=== PATIENT | female | born 1950 | race Caucasian/White ===

== ENCOUNTER 2020-01-14 12:59 | Outpatient (REF) | payer SELFPAY | END 2020-01-14 13:00 | disposition home or self-care (01) | LOC: HO.HAP 12:59 | PROVIDERS: Visit Provider Internal Medicine | DX: Z46.1 Encounter for fitting and adjustment of hearing aid (principal); H90.3 Sensorineural hearing loss, bilateral | CPT/HCPCS: V5264 ==

== ENCOUNTER 2020-01-24 11:32 | Outpatient (REF) | payer SELFPAY | END 2020-01-24 11:33 | disposition home or self-care (01) | LOC: HO.HAP 11:32 | PROVIDERS: Visit Provider Internal Medicine | DX: Z13.89 Encounter for screening for other disorder (principal) | CPT/HCPCS: 92700 ==

== ENCOUNTER 2020-02-14 12:43 | Outpatient (REF) | payer SELFPAY | END 2020-02-14 12:44 | disposition home or self-care (01) | LOC: HO.HAP 12:43 | PROVIDERS: PCP Internal Medicine; Referring Provider Internal Medicine; Visit Provider Internal Medicine | DX: Z13.89 Encounter for screening for other disorder (principal) | CPT/HCPCS: 92700 ==

== ENCOUNTER 2020-02-25 12:24 | Outpatient (REF) | payer SELFPAY | END 2020-02-25 12:25 | disposition home or self-care (01) | LOC: HO.HAP 12:24 | PROVIDERS: PCP Internal Medicine; Referring Provider Internal Medicine; Visit Provider Internal Medicine | DX: Z13.89 Encounter for screening for other disorder (principal) | CPT/HCPCS: 92700 ==

== ENCOUNTER 2020-03-04 13:26 | Outpatient (REF) | payer SELFPAY | END 2020-03-04 13:27 | disposition home or self-care (01) | LOC: HO.HAP 13:26 | PROVIDERS: PCP Internal Medicine; Referring Provider Internal Medicine; Visit Provider Internal Medicine | DX: Z13.89 Encounter for screening for other disorder (principal) | CPT/HCPCS: 92700 ==

== ENCOUNTER 2020-04-14 13:02 | Outpatient (REF) | payer SELFPAY | END 2020-04-14 13:03 | disposition home or self-care (01) | LOC: HO.HAP 13:02 | PROVIDERS: Visit Provider Internal Medicine | DX: Z13.89 Encounter for screening for other disorder (principal) ==

== ENCOUNTER 2020-04-24 12:11 | Outpatient (REF) | payer SELFPAY | END 2020-04-24 12:12 | disposition home or self-care (01) | LOC: HO.HAP 12:11 | PROVIDERS: Visit Provider Internal Medicine | DX: Z13.89 Encounter for screening for other disorder (principal) ==

== ENCOUNTER 2020-05-22 12:31 | Outpatient (REF) | payer SELFPAY | END 2020-05-22 12:32 | disposition home or self-care (01) | LOC: HO.HAP 12:31 | PROVIDERS: Visit Provider Internal Medicine | DX: Z13.89 Encounter for screening for other disorder (principal) ==

== ENCOUNTER 2020-07-26 14:04 | Emergency (ER) | payer MEDICARE, OTHER, SELFPAY ==
[2020-07-26 14:11] VITALS: BP 141/66; PULSE 70; RESP 16; TEMP 37.1; O2SAT 96; BMI 33.0
--- NOTE | 2020-07-26 15:45 | ED_ITS ---
HPI - General Adult General Chief complaint: General Medical Stated complaint: cellulitis Time Seen by Provider: 07/26/20 15:34 Source: patient and family Mode of arrival: ambulatory Limitations: no limitations History of Present Illness HPI narrative: 70-year-old female with a past medical history of insulin-depend ent diabetes,, chronic lymphedema, breast cancer status post mastectomy and chemotherapy, depression, degenerative joint disease, fibromyalgia, ,OCD neuropathy here with complaints of right lower extremity swelling with a wound to the site. Patient tells me that she does have chronic lower extremity swelling secondary lymphedema. About 6 weeks ago she scratched her right lower leg and then noticed some redness and a wound at that site. She has been on Keflex from her primary care doctor since. This morning she noticed some increasing redness with a blister to the back of the right leg and more swelling. No pain. No fevers or chills. Blood sugars have been running from 130-150 in the morning at home. Related Data Previous Rx's Medication Instructions Recorded fluconazole [Diflucan] 150 mg PO Q3D #2 tab 07/26/20 sulfamethoxazole-trimethoprim 1 tab PO BID #14 tab 07/26/20 [Bactrim DS] Allergies Allergy/AdvReac Type Severity Reaction Status Date / Time codeine [Codeine] Allergy Unknown NAUSEA AND Unverified 12/19/19 15:04 VOMITING, nausea pregabalin Allergy Unknown Confusion Verified 07/26/20 14:20 rosuvastatin [Crestor] Allergy Unknown joint pain Verified 04/26/16 00:00 NSAIDS (Non-Steroidal Allergy Swelling Verified 07/26/20 14:20 Anti-Inflamma oxycodone [From OxyContin] Allergy Itching Verified 07/26/20 14:20 [place] Insulin Allergy Unknown severe Uncoded 04/26/16 00:00 itching tapes, adhesives, tegaderm, Allergy Unknown rash Uncoded 04/26/16 00:00 st wellbutrin Allergy Unknown rash Uncoded 04/26/16 00:00 Review of Systems Review of Systems: Yes all other systems are reviewed and are negative Constitutional: Constitutional: Reports no additional constitutional complaints, Denies body ache(s), Denies chills, Denies fever(s), Denies headac he(s) and Denies weakness Eyes: Eyes: Reports no additional eye complaints and Denies change in vision ENT: Reports system reviewed and no additional complaints, except as documented, Denies dizziness, Denies headache(s), Denies nasal congestion, Denies nasal discharge and Denies neck pain Cardiovascular: Cardiovascular: Reports no additional cardiovascular complaints, Denies chest pain, Reports leg edema and Denies dyspnea Respiratory: Respiratory: Reports no additional respiratory complaints, Denies cough and Denies dyspnea Gastrointestinal: Gastrointestinal: Reports no additional gastrointestinal complaints, Denies abdominal pain, Denies diarrhea, Denies nausea and Denies vomiting Genitourinary: Genitourinary: Reports no additional female genitourinary complaints and Denies urinary incontinence Musculoskeletal: Musculoskeletal: Reports no additional musculoskeletal complaints, Denies back pain, Denies arthralgias, Denies joint swelling, Denies neck pain, Denies numbness and Denies tingling Integumentary/Breasts: Skin/Breast: Reports system reviewed and no additional complaints, except as docu, Reports swelling, Reports erythema, Denies rash and Reports wounds Neurologic: Reports system reviewed and no additional complaints, except as documented, Denies Abnormal speech present, Denies dizziness, Denies headache(s), Denies numbness, Denies tingling and Denies weakness PMFSH Past Medical History Attestation statement: The following information was validated with the patient. Source: old records reviewed and nursing notes reviewed Medical History Depression Diabetes DJD (degenerative joint disease) Fibromyalgia GERD (gastroesophageal reflux disease) Neuropathy OCD (obsessive compulsive disorder) SI (sacroiliac) joint dysfunction Social History Social History Advance Directives: No Advance Directives Information Provided: Yes Physical Exam Vital Signs: Vital Signs: Last Vital Signs Temp 98.7 F 07/26/20 14:11 Pulse 70 07/26/20 14:11 Resp 16 07/26/20 14:11 BP 141/66 H 07/26/20 14:11 Pulse Ox 96 07/26/20 14:11 Body Mass Index 33.0 Const: General: cooperative, healthy appearing, comfortable and no acute distress Orientation/consciousness: patient oriented x3 Limitations: no limitations HENMT: Head: Yes normal to inspection Ears: hearing grossly normal bilaterally General nose exam: Normal external nose present Face and sinus: Yes normal facial exam Mouth: Normal oral and palatal mucosa present Throat: Yes posterior oropharynx normal Eyes: General: appearance normal, both eyes and all related structures Pupils: Equal, round and reactive pupils present Neck: Neck: Yes normal visual inspection Chest: Chest palpation & inspection: normal inspection of the chest Resp: Effort & Inspection: normal respiratory effort Auscultation: clear to auscultation bilaterally Cardio: Rate: regular rate Rhythm: regular rhythm Peripheral pulses: Peripheral pulses 2+ throughout GI: Inspection: Yes normal to inspection Palpation (GI): Soft to palpation and nontender Auscultation: normal bowel sounds Back/Spine/Pelvis: Thoracic/Lumbar Spine: thoracic and lumbar spine normal to inspection Skin: General skin exam: no rashes or lesions noted Neuro: General: patient oriented x3, no focal motor deficits and normal sensation to monofilament Cranial nerves: Yes Equal, round and reactive pupils present Cognition (Neuro): normal cognition Speech: No Abnormal speech present Gait exam (Neuro): Normal gait present Motor exam (neuro): 5/5 motor strength present throughout Extrem: Other: To the right lower extremity there are 2 open wounds over the anterior and medial aspect with some erythema and warmth. There is a blister over the posterior aspect with surrounding erythema and warmth. No fluctuance or induration of the leg. No tenderness on exam. Palpable pulse distally General: Yes normal to inspection and Yes edema (Bilateral 2+) Course Course Course Narrative: 70-year-old female with chronic lymphedema here with right lower extremity wounds with warmth and redness despite taking Keflex. No fevers or chills.. Will check labs 1730-labs show no leukocytosis or shift. Patient has no systemic signs or symptoms concerning for infection. She has chronic lymphedema with chronic wounds and some local cellulitis which can be treated with oral antibiotics. I recommended the patient start doxycycline which she tells me she does not want to take this and would rather take a course of Bactrim. Prescribed 7 days of Bactrim. Patient tells me when she takes antibiotic she gets yeast infection so she is requesting Diflucan for home. Recommend follow-up with her primary care doctor and wound care clinic. Reviewed worrisome signs and symptoms and when to return to the emergency department. Comfortable with discharge home. Medical Decision Making Medical Records Medical records reviewed: Yes I reviewed the patient's medical records. Lab Data Lab results reviewed: Yes I reviewed the patient's lab results. Result diagrams: 07/26/20 16:04 07/26/20 16:03 Labs: Lab Results 07/26/20 07/26/20 07/26/20 Range/Units 16:03 16:04 16:04 WBC 7.8 (4.8-10.8) X10*3/uL RBC 4.10 L (4.20-5.50) X10*6/uL Hgb 13.1 (12.0-16.0) g/dl Hct 39.5 (37-47) % MCV 96.3 (80-98) fL MCH 32.0 (27.0-33.0) pg MCHC 33.2 (31.0-35.0) g/dl RDW 12.4 (11.0-16.0) % Plt Count 313 (160-400) X10*3/uL MPV 8.3 L (9.4-12.3) fL Immature Gran % (Auto) 0.4 (0.0-0.4) % Neut % (Auto) 62.1 (45-73) % Lymph % (Auto) 23.1 (20-40) % [place] % (Auto) 7.9 (2-11) % Eos % (Auto) 5.7 H (0-4) % Baso % (Auto) 0.8 (0-2) % Lymph # (Auto) 1.8 (1.2-4.9) X10*3/uL [place] # (Auto) 0.6 (0.1-1.2) X10*3/uL Eos # (Auto) 0.5 H (0.0-0.4) X10*3/uL Baso # (Auto) 0.1 (0.0-0.2) X10*3/uL Abs Immat Gran (auto) 0.03 (0.00-0.03) X10*3/uL Absolute Neuts (auto) 4.9 (2.0-8.3) X10*3/uL Absolute Nucleated RBC 0.000 (0.0-0.012) X10*3/uL Nucleated RBC % (auto) 0.0 (0.0-0.2) /100WBC ESR 16 (0-20) MM/HR Hold Blue Top Sodium 141 (135-145) mmol/L Potassium 3.8 (3.3-5.1) mmol/L Chloride 103 (96-108) mmol/L Carbon Dioxide 27 (22-29) mmol/L Anion Gap 15 (12-20) BUN 17 H (9-16) mg/dL Creatinine 0.84 (0.5-1.4) mg/dL Estim Creat Clear Calc 58.6 Estimated GFR > 60 Random Glucose 146 H (60-115) mg/dL Calcium 9.7 (8.4-10.2) mg/dL Total Bilirubin 0.5 (0.0-1.0) mg/dL Direct Bilirubin 0.2 (0.0-0.5) mg/dL AST 31 (5-31) U/L ALT 26 (0-31) U/L Alkaline Phosphatase 65 (39-117) U/L C-Reactive Protein 0.93 H (< or = 0.50) mg/dL Total Protein 6.9 (6.5-8.0) g/dL Albumin 4.2 (3.5-5.0) g/dL 07/26/20 Range/Units 16:04 WBC (4.8-10.8) X10*3/uL RBC (4.20-5.50) X10*6/uL Hgb (12.0-16.0) g/dl Hct (37-47) % MCV (80-98) fL MCH (27.0-33.0) pg MCHC (31.0-35.0) g/dl RDW (11.0-16.0) % Plt Count (160-400) X10*3/uL MPV (9.4-12.3) fL Immature Gran % (Auto) (0.0-0.4) % Neut % (Auto) (45-73) % Lymph % (Auto) (20-40) % [place] % (Auto) (2-11) % Eos % (Auto) (0-4) % Baso % (Auto) (0-2) % Lymph # (Auto) (1.2-4.9) X10*3/uL [place] # (Auto) (0.1-1.2) X10*3/uL Eos # (Auto) (0.0-0.4) X10*3/uL Baso # (Auto) (0.0-0.2) X10*3/uL Abs Immat Gran (auto) (0.00-0.03) X10*3/uL Absolute Neuts (auto) (2.0-8.3) X10*3/uL Absolute Nucleated RBC (0.0-0.012) X10*3/uL Nucleated RBC % (auto) (0.0-0.2) /100WBC ESR (0-20) MM/HR Hold Blue Top SEE NOTE Sodium (135-145) mmol/L Potassium (3.3-5.1) mmol/L Chloride (96-108) mmol/L Carbon Dioxide (22-29) mmol/L Anion Gap (12-20) BUN (9-16) mg/dL Creatinine (0.5-1.4) mg/dL Estim Creat Clear Calc Estimated GFR Random Glucose (60-115) mg/dL Calcium (8.4-10.2) mg/dL Total Bilirubin (0.0-1.0) mg/dL Direct Bilirubin (0.0-0.5) mg/dL AST (5-31) U/L ALT (0-31) U/L Alkaline Phosphatase (39-117) U/L C-Reactive Protein (< or = 0.50) mg/dL Total Protein (6.5-8.0) g/dL Albumin (3.5-5.0) g/dL Discharge Plan Discharge Clinical Impression: Cellulitis, Chronic wound of extremity Patient Disposition: Home, Self-Care Instructions: Cellulitis (ED), Chronic Wounds (ED) Additional Instructions: Start taking the antibiotic today Apply topical antibiotic ointment, non stick dressing and wrap to the wound Follow-up with the wound care center [phone] Prescriptions: New sulfamethoxazole-trimethoprim [Bactrim DS] 800-160 mg tablet 1 tab PO BID Qty: 14 RF: 0 fluconazole [Diflucan] 150 mg tablet 150 mg PO Q3D Qty: 2 RF: 0 Referrals: Dany Burnette MD [Primary Care Provider] - 2 days
[2020-07-26 16:09] LABS: MANUAL DIFF FLAG NO
[2020-07-26 16:10] LABS: Basophils Absolute Auto 0.1 X10*3/uL (0.0-0.2); Basophils Percent Auto 0.8 % (0-2); Eosinophils Absolute Auto 0.5 X10*3/uL (0.0-0.4); Eosinophils Percent Auto 5.7 % (0-4); Hematocrit 39.5 % (37-47); Hemoglobin 13.1 g/dl (12.0-16.0); Imm Gran Abs Auto 0.03 X10*3/uL (0.00-0.03); Imm Gran Pct Auto 0.4 % (0.0-0.4); Lymphocytes Absolute Auto 1.8 X10*3/uL (1.2-4.9); Lymphocytes Percent Auto 23.1 % (20-40); Mean Corpuscular HGB Conc 33.2 g/dl (31.0-35.0); Mean Corpuscular Volume 96.3 fL (80-98); Mean Platelet Volume 8.3 fL (9.4-12.3); Monocytes Absolute Auto 0.6 X10*3/uL (0.1-1.2); Monocytes Percent Auto 7.9 % (2-11); Neutrophils Absolute Auto 4.9 X10*3/uL (2.0-8.3); Neutrophils Percent Auto 62.1 % (45-73); Platelet Count 313 X10*3/uL (160-400); Red Cell Distribution Width 12.4 % (11.0-16.0); White Blood Count 7.8 X10*3/uL (4.8-10.8)
[2020-07-26 16:35] LABS: Alanine Aminotransferase 26 U/L (0-31); Albumin Level 4.2 g/dL (3.5-5.0); Alkaline Phosphatase 65 U/L (39-117); Anion Gap 15 (12-20); Aspartate Amino Transferase 31 U/L (5-31); Bilirubin Direct 0.2 mg/dL (0.0-0.5); Bilirubin Total 0.5 mg/dL (0.0-1.0); Blood Urea Nitrogen 17 mg/dL (9-16); C Reactive Protein 0.93 mg/dL (< or = 0.50); Calcium 9.7 mg/dL (8.4-10.2); Carbon Dioxide 27 mmol/L (22-29); Chloride 103 mmol/L (96-108); Creatinine Clr Calc Pharmacy 58.6; Estimated Glomerular Filt Rate > 60; Glucose Random 146 mg/dL (60-115); Potassium 3.8 mmol/L (3.3-5.1); Sodium 141 mmol/L (135-145); Total Protein 6.9 g/dL (6.5-8.0)
[2020-07-26 17:02] LABS: Erythrocyte Sedimentation Rate 16 MM/HR (0-20)
== END 2020-07-26 17:51 | disposition home or self-care (01) ==
PROVIDERS: Nurse Practitioner Family; Emergency Provider Emergency Medicine; PCP Internal Medicine
DX: L03.115 Cellulitis of right lower limb (principal); L97.819 Non-pressure chronic ulcer of other part of right lower leg with unspecified severity; I89.0 Lymphedema, not elsewhere classified; E11.9 Type 2 diabetes mellitus without complications
CPT/HCPCS: 36415; 80048; 80076; 85025; 85652; 86140; 99283

== ENCOUNTER 2020-07-30 09:58 | Outpatient (RCR) | payer MEDICARE, OTHER, SELFPAY | END 2020-08-25 15:08 | disposition home or self-care (01) | LOC: HO.WCC 09:58 | PROVIDERS: Visit Provider Surgery | DX: I87.331 Chronic venous hypertension (idiopathic) with ulcer and inflammation of right lower extremity (principal); L97.812 Non-pressure chronic ulcer of other part of right lower leg with fat layer exposed; Q82.0 Hereditary lymphedema; L03.115 Cellulitis of right lower limb; F42.4 Excoriation (skin-picking) disorder; Z79.4 Long term (current) use of insulin; Z79.899 Other long term (current) drug therapy; Z79.82 Long term (current) use of aspirin; Z79.2 Long term (current) use of antibiotics | CPT/HCPCS: 29581; 99212; 99213 ==

== ENCOUNTER 2020-08-12 11:32 | Outpatient (REF) | payer MEDICARE, OTHER, SELFPAY ==
--- NOTE | 2020-08-14 08:50 | MHC.AU.AHA ---
Adult Audiological Evaluation Date of Visit: 08/12/20 Blast Setter Used: Not Applicable Reason for Appointment: Audiologic re-evaluation due to increasing difficulties understanding speech Previous Hearing Test Results: 03/25/2019 [facility] Bilateral severe to profound sensorineural hearing loss with 76% speech understanding at 95 dB HL for both ears Ear History: Long-standing hearing loss Medical History: Medical History: Diabetes, Thyroid Disease, Arthritis and Fibromyalgia Medication List: Basaglar Insulin, Omeprazol, Levothyroxine, Simvastatin, Ativan, Aspirin, Athritis Tylenol, Zyrtec, Gabapentin, Multivitamin, Fish Oil, [place], Prozac Hearing Instrument History- Right Ear: Wildlife Biology Internship: Phonak Model: Red Hawk Interactive V 90-SP BTE Serial Number: [id number] Battery Size: 13 Repair Warranty: 12/02/2017 Dispensed By: [facility] Date of Fittin09/11/2014 Hearing Instrument History- Left Ear: Wildlife Biology Internship: Phonak Model: Red Hawk Interactive V 90-SP Serial Number: [id number] Battery Size: 13 Warranty: 12/02/2017: Dispensed By: [facility] Date of Fittin09/11/2014 Otoscopy: Right Ear: Unremarkable Left Ear: Unremarkable Tympanometry: Tympanometry not performed as previous testing has indicated normal middle ear function bilaterally Hearing Evaluation: Transducer(s) Used: Insert Earphones Bone Conduction Method: Conventional Audiometry Stimuli Used: Pure Tones Right Ear: Description of Hearing: Severe to profound sensorineural hearing loss Left Ear: Description of Hearing: Severe to profound sensorineural hearing loss Speech Recognition Threshold (SRT): Method Used: Monitored Live Voice Stimuli Used: Spondee Words Right Ear: 75 dB HL Left Ear: 75 dB HL Word Discrimination: Method: Recorded Lists Word Lists Used: NU-6 Right Ear: 44% at 90 dB HL 64% at 95 dB HL Left Ear: 32% at 85 dB HL 60% at 90 dB HL Most Comfortable Level (MCL): Right Ear: 90 dB HL Left Ear: 85 dB HL Comparison: Compared to the most recent evaluation: Hearing is stable. Word discrimination scores have decreased bilaterally. Recommendations: Audiological re-evaluation in one year. Lizzette would like to trial new amplification. Medical clearance from a physician is required before fitting. Hearing Aid Fitting will be scheduled when all materials arrive. Diagnosis: Primary Diagnosis: H90.3 Bilateral Sensorineural Hearing Loss Services Performed: Comprehensive Audiological Evaluation (CPT 60176) Signature: Provider: Luis E Wakefield CCC-A
== END 2020-08-12 11:33 | disposition home or self-care (01) ==
LOC: HO.SH 11:32
PROVIDERS: Visit Provider Internal Medicine
DX: H90.3 Sensorineural hearing loss, bilateral (principal)
CPT/HCPCS: 92557

== ENCOUNTER 2020-08-12 13:27 | Outpatient (REF) | payer SELFPAY ==
--- NOTE | 2020-08-14 08:58 | MHC.AU.HAS ---
Hearing Aid Evaluation Date of Visit: 08/12/20 Historical Information: Description of Hearing: Bilateral severe to profound sensorineural hearing loss Current personal amplification information, if applicable: Binaural Phonak V 90-SP BTE with Microsonic skeleton ear molds Summary: Patient is interested in trying new hearing aids due to the increasing hearing difficulties she is experiencing Hearing Aid Prescription: Based on the individual?s shared listening needs, communication environments, dexterity, desire for connectivity, and personal preferences, the following prescription for amplification has been made: Right ear: Sheet Music Salesperson: Phonak Model: Audeo P 90 13T Battery Size: 13 Color: Silver Sharpe Senior Statistical Programmer: #2 UP Type of Mold: Phonak Skeleton integrated c-shell Left ear: Sheet Music Salesperson: Phonak Model: Audeo P 90 13T Battery Size: 13 Color: Silver Sharpe Senior Statistical Programmer: #2 UP Type of Mold: Phonak Skeleton integrated c-shell Accessories/Assistive Technology Recommended: Promo Partner Ronald Plan of Care: Patient wishes to purchase hearing aids as prescribed Action Taken/Action Needed: Earmold Impressions Taken Medical Clearance to be requested from PCP/ENT Hearing Fitting to be scheduled when materials arrive Comments: Primary Diagnosis: H90.3 Bilateral Sensorineural Hearing Loss Secondary Diagnosis: Signature: Provider: Luis E Wakefield, CCC-A
--- NOTE | 2020-08-14 09:03 | MHC.AU.MED ---
Medical Clearance for Hearing Instrumentation Date: 08/14/20 Patient Name: Lizzette Steiner Date of : 1950 Primary Care Provider: Referring Provider: Dany Burnette MD We have seen your patient on 08/14/20 and have determined that they are a candidate for amplification (See accompanying report). Specifically, they would benefit from: Hearing aid use in both ears There is a statute that addresses Medical Evaluation Requirements prior to fitting a patient with a hearing aid. According to [place] statute 265 CMR:6.03(1), (a) General. Except as provided in 265 CMR 6.03(1)(b), a hearing healthcare practitioner shall not sell a hearing aid unless the prospective user has presented to the hearing healthcare practitioner a written statement signed by a licensed physician that states that the patient's hearing loss has been medically evaluated and the patient may be considered a candidate for a hearing aid. The medical evaluation must have taken place within the preceding six months. Please note: Due to the [place] Statute referenced above, we cannot accept a signature other than that of a licensed physician. RECORD TABULATING CLERK and PA signatures cannot be accepted. I am in agreement with the above recommendation. There is no medical contraindication for hearing instrumentation. Physician Signature Date Physician Name (Printed)
== END 2020-08-12 13:28 | disposition home or self-care (01) ==
LOC: HO.HAP 13:27
PROVIDERS: Visit Provider Internal Medicine
DX: Z46.1 Encounter for fitting and adjustment of hearing aid (principal); H90.3 Sensorineural hearing loss, bilateral
CPT/HCPCS: 92591

== ENCOUNTER 2020-09-02 12:32 | Outpatient (REF) | payer MEDICARE, OTHER, SELFPAY ==
--- NOTE | ~2020-09-02 | US_ITS ---
EXAMINATION: US LOWER EXTREMITY VENOUS ULTRASOUND (REFLUX EXAM), BILATERAL CLINICAL INDICATION: Lower extremity ulcer. Concern for venous insufficiency. COMPARISON: None. TECHNIQUE: Color flow triplex imaging and compression Doppler was performed to evaluate both the deep and the superficial systems bilaterally. To evaluate the superficial system, the examination was performed in the upright position. Color flow Doppler ultrasound and compression ultrasound were utilized. In addition, maneuvers were utilized to demonstrate reflux. FINDINGS: 1. DEEP VENOUS ULTRASOUND OF THE RIGHT LOWER EXTREMITY: Common Femoral Vein: Compressible, normal respiratory variation and augmented flow. Femoral Vein: Compressible, normal color flow and augmentation. Popliteal Vein: Compressible, normal augmentation. Deep Reflux: There is no evidence of reflux in the deep system in either the common femoral vein or the popliteal vein. There is no evidence of a Simpson's cyst. 2. SUPERFICIAL ULTRASOUND WITH DOPPLER OF RIGHT LOWER EXTREMITY GREAT SAPHENOUS VEIN: Saphenofemoral junction: 0.6 cm; No evidence of reflux. Proximal thigh: 0.7 cm; No evidence of reflux. Mid thigh: 0.2 cm; Greater than 3 seconds of reflux. Above-knee: 0.2 cm; No evidence of reflux. At knee: 0.2 cm; Greater than 3 seconds of reflux. Below-knee: 0.3 cm; No evidence of reflux. Mid calf: 0.1 cm; No evidence of reflux. DUPLICATED GREAT SAPHENOUS VEIN: None SMALL SAPHENOUS VEIN: Saphenopopliteal junction: 0.2 cm; No evidence of reflux. Mid calf: 0.2 cm; No evidence of reflux. Distal calf: 0.2 cm; Greater than 2 seconds of reflux. VEIN OF GIACOMINI: None Imaged. PERFORATORS: Proximal thigh, 0.2 cm; No reflux. VARICOSITIES: Distal thigh, 0.2 cm; Greater than 3 seconds of reflux. Distal thigh, 0.2 cm; Greater than 3 seconds of reflux. 3. DEEP VENOUS ULTRASOUND OF THE LEFT LOWER EXTREMITY: Common Femoral Vein: Compressible, normal respiratory variation and augmented flow. Femoral Vein: Compressible, normal color flow and augmentation. Popliteal Vein: Compressible, normal augmentation. Deep Reflux: There is no evidence of reflux in the deep system in either the common femoral vein or the popliteal vein. There is no evidence of a Simpson's cyst. 4. SUPERFICIAL ULTRASOUND WITH DOPPLER OF LEFT LOWER EXTREMITY GREAT SAPHENOUS VEIN: Saphenofemoral junction: 0.7 cm; Reflux: No evidence of reflux. Proximal thigh: 0.4 cm; Reflux: No evidence of reflux. Mid thigh: 0.2 cm; Reflux: 0.6 seconds. Above-knee: 0.1 cm; Reflux: No evidence of reflux. At knee: 0.2 cm; Reflux: No evidence of reflux. Below-knee: 0.2 cm; Reflux: No evidence of reflux. Mid calf: 0.2 cm; Reflux: No evidence of reflux. Ankle: 0.2 cm; Reflux: No evidence of reflux. DUPLICATED GREAT SAPHENOUS VEIN: Lateral, 0.4; No reflux. SMALL SAPHENOUS VEIN: Saphenopopliteal junction: 0.2 cm; No evidence of reflux. Mid calf: 0.2 cm; No evidence of reflux. Distal calf: 0.1 cm; No evidence of reflux. VEIN OF GIACOMINI: None Imaged. PERFORATORS: Mid thigh, 0.2 cm; No reflux. VARICOSITIES: Mid thigh, 0.2 cm; Greater than 0.4 seconds of reflux. Distal calf, 0.2 cm; Greater than 0.5 seconds of reflux. US/US venous duplex LE BI IMPRESSION: 1. Right great saphenous venous insufficiency beginning at the level of the mid thigh 2. Left great saphenous venous insufficiency at the mid thigh. 3. Right small saphenous venous insufficiency at the distal calf. 4. No evidence of left small saphenous venous insufficiency. 5. Bilateral refluxing varicosities. 6. No evidence of DVT or deep reflux.
== END 2020-09-02 12:33 | disposition home or self-care (01) ==
LOC: HO.US 12:32
PROVIDERS: Visit Provider Surgery
DX: L97.812 Non-pressure chronic ulcer of other part of right lower leg with fat layer exposed (principal)
CPT/HCPCS: 93970

== ENCOUNTER 2020-09-04 09:55 | Outpatient (REF) | payer SELFPAY ==
--- NOTE | 2020-09-10 08:10 | MHC.AU.HFA ---
Hearing Instrument Fitting- Adult- Binaural Date of Visit: 09/04/20 Hearing Instruments Dispensed: Right Ear: Poultry Dressing Worker: Phonak Model: Audeo P 90 13T Serial Number: [id number] Repair Warranty: 11/19/2023 Battery Size: 13 Color: Silver Sharpe Box Office Clerk: #2 UP Type of Mold: Phonak Skeleton integrated c-shell [id number] Warranty 12/20/2020 Type of Wax Guard: CeruStop Left Ear: Poultry Dressing Worker: Phonak Model: Audeo P 90 13T Serial Number: [id number] Repair Warranty: 11/19/2023 Battery Size: 13 Color: Silver Sharpe Box Office Clerk: #2 UP Type of Mold: Phonak Skeleton integrated c-shell #[id number] Warranty 12/20/2020 Type of Wax Guard: CeruStop Accessories[facility]Assistive Technology: [id number] 11/18/2021 Summary of Fitting: New binaural hearing aids fit today to facilitate communication as Lizzette was experiencing increased difficulties understand speech with previous aids. Ran feedback test and performed Real Ear measurements making adjustments to better meet targets. AFTER REAL EAR PATIENT DID NOT LIKE THE SOUND QUALITY COMPARED TO TARGET FIRST FIT AFTER FEEDBACK TEST. DID NOT SAVE SETTINGS FOLLOWING REAL EAR AND RETURNED TO FIRST FIT WITH FEEDBACK TEST WITH PATIENT REPORTING MUCH BETTER SOUND QUALITY AND COMFORT. Sound Recover deactivated and volume control active. All other features on default. Patient did not want cell phone paired with aids. Patient had some difficulty with insertion since molds are different from old hearing aids used. She does better when inserting the earmolds first then placing aids behind ears. Discussed how important it is to not twist the distribution operation supervisor wire. Patient is very satisfied with the comfort and sound of the aids while in office. F/U scheduled 09/18/2020. Patient's funds did not get transferred from the bank yet. Did not bill hearing aids today. Recommendations: Recommendations: Hearing instrument care and maintenance were discussed and practiced. See handouts for care/use instructions and battery information. A hearing instrument follow-up was scheduled. Recommendations (Other): BILL FOR HEARING AIDS AT 09/18/2020 VISIT. Diagnosis Code(s): Primary Diagnosis: H90.3 Bilateral Sensorineural Hearing Loss Signature: Provider: Luis E Wakefield, GUNJAN-A
== END 2020-09-04 09:56 | disposition home or self-care (01) ==
LOC: HO.HAP 09:55
PROVIDERS: Visit Provider Internal Medicine
DX: Z13.89 Encounter for screening for other disorder (principal)

== ENCOUNTER 2020-09-18 11:41 | Outpatient (REF) | payer SELFPAY | END 2020-09-18 11:42 | disposition home or self-care (01) | LOC: HO.HAP 11:41 | PROVIDERS: Visit Provider Internal Medicine | DX: H90.3 Sensorineural hearing loss, bilateral (principal); Z46.1 Encounter for fitting and adjustment of hearing aid | CPT/HCPCS: V5261 ==

== ENCOUNTER → 2021-01-01 10:47 | Outpatient (BNVA) | payer MEDICARE, OTHER, SELFPAY | PROVIDERS: PCP Internal Medicine; Visit Provider Internal Medicine | DX: M79.18 Myalgia, other site (principal); M46.92 Unspecified inflammatory spondylopathy, cervical region; M54.12 Radiculopathy, cervical region; M25.512 Pain in left shoulder | CPT/HCPCS: 99202 ==

== ENCOUNTER 2021-01-07 19:01 | Outpatient (REF) | payer MEDICARE, OTHER, SELFPAY ==
--- NOTE | ~2021-01-07 | MR_ITS ---
EXAMINATION: MR CERVICAL SPINE WITHOUT CONTRAST CLINICAL INFORMATION: Left shoulder pain. Left arm pain, tingling, finger numbness. COMPARISON: None TECHNIQUE: MRI of the cervical spine was obtained using routine sequences without contrast. FINDINGS: VERTEBRAL BODIES AND PARASPINAL SOFT TISSUES: Straightening of the normal cervical lordosis, which may be positional or related to muscular spasm. Grade 1 anterolisthesis of C4 on C5. Grade 1 retrolisthesis of C5 on C6 as well as grade 1 anterolisthesis of C7 on T1. No acute fracture. No loss of vertebral body height. Prominent loss of intervertebral disc height with disc desiccation, degenerative endplate changes, and endplate osteophytes at C4 through T1. No marrow edema to suggest acute osseous injury. No abnormal signal within the visualized cord. Paraspinal soft tissues are unremarkable. CERVICOMEDULLARY JUNCTION AND VISUALIZED POSTERIOR FOSSA: Unremarkable. SPINAL LEVELS: C2-C3: No significant disc bulge. Bilateral facet arthropathy without central canal or neural foraminal stenosis. C3-C4: Broad-based disc bulge with a superimposed right paracentral disc protrusion which partially effaces the ventral thecal sac. Bilateral facet arthropathy and uncinate spurring with moderate right and mild left neural foraminal stenosis. C4-C5: Broad-based disc osteophyte complex which completely effaces the ventral thecal sac and indents the adjacent cord. Bilateral facet arthropathy and uncinate spurring with ujafhezu-ku-ibefod bilateral neural foraminal stenosis. C5-C6: Broad-based disc osteophyte complex which completely effaces the ventral thecal sac and indents the adjacent cord. Bilateral facet arthropathy and uncinate spurring with ictibafr-hz-wcrdzh bilateral neural foraminal stenosis. C6-C7: Broad-based disc osteophyte complex which completely effaces the ventral thecal sac. Bilateral facet arthropathy and uncinate spurring with xlwmpirt-ui-ipbdkd bilateral neural foraminal stenosis. C7-T1: Shallow disc bulge which partially effaces the ventral thecal sac with bilateral facet arthropathy and uncinate spurring causing mild bilateral neural foraminal stenosis. MR/MR cervical spine wo con IMPRESSION: 1. Straightening of the normal cervical lordosis, which may be positional or related to muscular spasm. Grade 1 anterolisthesis of C4 on C5 and C7 on T1 as well as grade 1 retrolisthesis of C5 on C6. No acute fracture. 2. Multilevel degenerative disc disease, most prominent at C4 through C7. 3. Broad-based disc osteophyte complexes which completely efface the ventral thecal sac and indent the adjacent cord at C4-C5 and C5-C6 with facet arthropathy and uncinate spurring causing havlfufs-ai-rprngi bilateral neural foraminal stenosis at these levels. 4. Additional disc bulges and stenosis as above.
== END 2021-01-07 19:02 | disposition home or self-care (01) ==
LOC: HO.MRI 19:01
PROVIDERS: PCP Internal Medicine; Visit Provider Internal Medicine
DX: M54.12 Radiculopathy, cervical region (principal); M46.92 Unspecified inflammatory spondylopathy, cervical region
CPT/HCPCS: 72141

== ENCOUNTER → 2021-01-15 10:27 | Outpatient (BNVA) | payer MEDICARE, OTHER, SELFPAY | PROVIDERS: PCP Internal Medicine; Visit Provider Internal Medicine | DX: M46.92 Unspecified inflammatory spondylopathy, cervical region (principal); M54.12 Radiculopathy, cervical region; M79.18 Myalgia, other site | CPT/HCPCS: Q3014 ==

== ENCOUNTER 2021-02-03 15:05 | Outpatient (RCR) | payer MEDICARE, OTHER, SELFPAY | END 2021-02-08 16:02 | disposition home or self-care (01) | LOC: HO.WCC 15:05 | PROVIDERS: PCP Internal Medicine; Visit Provider Surgery | DX: Z09 Encounter for follow-up examination after completed treatment for conditions other than malignant neoplasm (principal); I87.323 Chronic venous hypertension (idiopathic) with inflammation of bilateral lower extremity; E11.40 Type 2 diabetes mellitus with diabetic neuropathy, unspecified; Z87.2 Personal history of diseases of the skin and subcutaneous tissue | CPT/HCPCS: 99212 ==

== ENCOUNTER 2021-03-19 | Outpatient (REF) | payer MEDICARE, OTHER, SELFPAY | END 2021-03-19 00:01 | LOC: CF | PROVIDERS: Visit Provider Internal Medicine | DX: R32 Unspecified urinary incontinence (principal); M46.92 Unspecified inflammatory spondylopathy, cervical region | CPT/HCPCS: 99212 ==

== ENCOUNTER 2021-03-19 10:58 | Outpatient (REF) | payer MEDICARE, OTHER, SELFPAY | END 2021-03-19 10:59 | disposition home or self-care (01) | LOC: HO.HAP 10:58 | PROVIDERS: Visit Provider Internal Medicine | DX: Z46.1 Encounter for fitting and adjustment of hearing aid (principal); H90.3 Sensorineural hearing loss, bilateral; M46.92 Unspecified inflammatory spondylopathy, cervical region; M54.12 Radiculopathy, cervical region; M79.18 Myalgia, other site; M25.512 Pain in left shoulder; R32 Unspecified urinary incontinence | CPT/HCPCS: 99212; V5267 ==

== ENCOUNTER 2021-04-28 10:58 | Outpatient (REF) | payer MEDICARE, OTHER, SELFPAY ==
--- NOTE | 2021-04-28 14:39 | MHC.AU.HFU ---
Hearing Instrument Follow-Up- Binaural Date of Visit: 04/28/21 Right Ear: Carbon Blocks Press Operator: Phonak Model: Audeo P 90 13T Serial Number: [id number] Repair Warranty: 11/19/2023 Battery Size: 13 Color: Silver Sharpe Tactical Air Control Party: #2 UP Type of Dome: Type of Mold: Phonak Skeleton integrated c-shell [id number] Warranty 12/20/2020 Type of Wax Guard: CeruStop Dispensed By: [facility] Date of Fittin09/11/2014 Left Ear: Carbon Blocks Press Operator: Phonak Model: Audeo P 90 13T Serial Number: [id number] Repair Warranty: 11/19/2023 Battery Size: 13 Color: Silver Sharpe Tactical Air Control Party: #2 UP Type of Mold: Phonak Skeleton integrated c-shell #[id number] Warranty 12/20/2020 Type of Wax Guard: CeruStop Dispensed By: [facility] Date of Fittin09/11/2014 Follow-Up Summary: Audiologic re-evaluation performed as recommended by PCP because patient reports every time she inserts the aids over the past several weeks, she has to increase the volume of aids 3 steps. Wax guards partially blocked with cerumen. Otoscopy showed very small amount of cerumen around canal day, but nothing which needs to be removed. Explained she must be scooping enough to affect the quality of sound. Changed wax guards, cleaned microphones and contacts. Sound quality of aids have improved and patient notices this improvement. No programming changes made today. Recommendations: Hearing instrument follow-up or maintenance as needed. Patient will call if problems persist. Diagnosis Code(s): Primary Diagnosis: H90.3 Bilateral Sensorineural Hearing Loss Signature: Provider: Luis E Wakefield, [facility]
--- NOTE | 2021-04-30 13:08 | MHC.AU.AHA ---
Adult Audiological Evaluation Date of Visit: 04/28/21 Artificial Flowers Dyer Used: Not Applicable Reason for Appointment: Audiologic re-evaluation due to concerns regarding signficant change in hearing ability. Lizzette reports she needs to increase the volume of her hearing aids by 3 steps every time she puts the hearing aids on. Primary Care Physician referred for re-evaluation to determine if change in hearing ability as Lizzette has had a change in her medical status. Previous Hearing Test Results: 08/12/2020 [facility] Bilateral severe to profound sensorineural hearing loss with 64% speech discrimination ability for the right ear and 60% for the left ear. Medical History: Medical History: Diabetes, Thyroid Disease, Arthritis, and Fibromyalgia Allergies: Medication List: Basaglar Insulin, Gabapentin, Levothyroxine, Simvastatin, Aspirin, Fish Oil, Xyzal, Haldol, Omeprazole, Magnesium, Ativan, Arthritis Tylenol, Voltaren, B Vitamins, Biotin, DioVasc Hearing Instrument History- Right Ear: Navy Seal: Phonak Model: Arrive Technologieseo P 90 13T Serial Number: [id number] Battery Size: 13 Repair Warranty: 11/19/2023 Dispensed By: [facility] Date of Fittin09/11/2014 Hearing Instrument History- Left Ear: Navy Seal: Phonak Model: Arrive Technologieseo P 90 13T Serial Number: [id number] Battery Size: 13 Warranty: 11/19/2023 Dispensed By: [facility] Date of Fittin09/11/2014 Otoscopy: Right Ear: Unremarkable Left Ear: Unremarkable Tympanometry: Not performed at today's visit Hearing Evaluation: Transducer(s) Used: Insert Earphones Method: Conventional Audiometry Stimuli Used: Pure Tones Right Ear: Description of Hearing: Severe to profound sensorineural hearing loss. Left Ear: Description of Hearing: Severe to profound sensorineural hearing loss. Speech Recognition Threshold (SRT): Method Used: Not performed at today's visit. Word Discrimination: Method: Recorded Lists Word Lists Used: NU-6 Right Ear: 60% at 90 dB HL Left Ear: 64% at 95 dB HL Comparison: Compared to the most recent evaluation: Hearing is stable. Recommendations: Hearing aid maintenance performed today. Sound quality of aids improved following maintenance. Audiological re-evaluation in one year. Will send a reminder card. Diagnosis: Primary Diagnosis: H90.3 Bilateral Sensorineural Hearing Loss Services Performed: Comprehensive Audiological Evaluation (CPT 44257) Signature: Provider: Luis E Wakefield, [facility]
== END 2021-04-28 10:59 | disposition home or self-care (01) ==
LOC: HO.SH 10:58
PROVIDERS: Visit Provider Nurse Practitioner Acute Care
DX: H90.3 Sensorineural hearing loss, bilateral (principal)
CPT/HCPCS: 92557

== ENCOUNTER → 2021-05-17 12:51 | Outpatient (BNVA) | payer MEDICARE, OTHER, SELFPAY | PROVIDERS: PCP Internal Medicine; Visit Provider Internal Medicine | DX: M25.512 Pain in left shoulder (principal); M79.18 Myalgia, other site; M46.92 Unspecified inflammatory spondylopathy, cervical region; M54.12 Radiculopathy, cervical region | CPT/HCPCS: 99212 ==

== ENCOUNTER → 2021-05-27 12:58 | Outpatient (BNVA) | payer MEDICARE, OTHER, SELFPAY | PROVIDERS: PCP Internal Medicine | DX: R39.15 Urgency of urination (principal) | CPT/HCPCS: 51798; 99202 ==

== ENCOUNTER → 2021-06-14 11:49 | Outpatient (BNVA) | payer MEDICARE, OTHER, SELFPAY | PROVIDERS: PCP Nurse Practitioner Family; Visit Provider Internal Medicine | DX: Z13.89 Encounter for screening for other disorder (principal) | CPT/HCPCS: Q3014 ==

== ENCOUNTER 2021-06-15 10:41 | Outpatient (REF) | payer MEDICARE, OTHER, SELFPAY ==
[2021-06-15 11:15] LABS: MANUAL DIFF FLAG NO
[2021-06-15 11:32] LABS: Estimated Average Glucose 151 mg/dL; Hemoglobin A1c % 6.9 %
[2021-06-15 11:36] LABS: Basophils Percent Auto 0.7 % (0-2); Eosinophils Absolute Auto 0.2 X10*3/uL (0.0-0.4); Eosinophils Percent Auto 3.3 % (0-4); Hematocrit 40.8 % (37.0-47.0); Hemoglobin 13.1 g/dl (12.0-16.0); Imm Gran Abs Auto 0.02 X10*3/uL (0.00-0.03); Imm Gran Pct Auto 0.3 % (0.0-0.4); Lymphocytes Absolute Auto 1.6 X10*3/uL (1.2-4.9); Lymphocytes Percent Auto 27.1 % (20-40); Mean Corpuscular HGB Conc 32.1 g/dl (31.0-35.0); Mean Corpuscular Hemoglobin 31.2 pg (27.0-33.0); Mean Corpuscular Volume 97.1 fL (80.0-98.0); Mean Platelet Volume 8.8 fL (9.4-12.3); Monocytes Absolute Auto 0.6 X10*3/uL (0.1-1.2); Neutrophils Absolute Auto 3.4 x10*3/uL (2.0-8.3); Neutrophils Percent Auto 57.6 % (45-73); Platelet Count 325 X10*3/uL (160-400); Red Cell Distribution Width 12.4 % (11.0-16.0); White Blood Count 5.8 X10*3/uL (4.8-10.8)
[2021-06-15 11:58] LABS: Alanine Aminotransferase 34 U/L (0-31); Albumin Level 4.2 g/dL (3.5-5.0); Alkaline Phosphatase 69 U/L (39-117); Anion Gap 13 (12-20); Aspartate Amino Transferase 38 U/L (5-31); Bilirubin Total 0.3 mg/dL (0.0-1.0); Blood Urea Nitrogen 19 mg/dL (9-16); Calcium 9.7 mg/dL (8.4-10.2); Carbon Dioxide 27 mmol/L (22-29); Chloride 107 mmol/L (96-108); Cholesterol 162 mg/dL; Estimated Glomerular Filt Rate > 60; Glucose Fasting 115 mg/dL (60-99); HDL Cholesterol 57 mg/dL; LDL Cholesterol Calculated 83 mg/dl; Potassium 4.8 mmol/L (3.3-5.1); Sodium 142 mmol/L (135-145); Total Protein 6.9 g/dL (6.5-8.0); Triglycerides 111 mg/dL
[2021-06-15 12:19] LABS: TSH reflex Free T4 1.04 uIU/mL (0.32-4.0)
[2021-06-15 13:05] LABS: Microalbumin Urine < 5.0 mg/L
== END 2021-06-15 10:42 | disposition home or self-care (01) ==
LOC: HO.LAB 10:41
PROVIDERS: PCP Nurse Practitioner Family; Visit Provider Nurse Practitioner Family
DX: Z00.00 Encounter for general adult medical examination without abnormal findings (principal); E11.9 Type 2 diabetes mellitus without complications; E78.00 Pure hypercholesterolemia, unspecified; I10 Essential (primary) hypertension
CPT/HCPCS: 36415; 80053; 80061; 82043; 83036; 84443; 85025

== ENCOUNTER → 2021-07-29 10:57 | Outpatient (BNVA) | payer MEDICARE, OTHER, SELFPAY | PROVIDERS: PCP Nurse Practitioner Family; Visit Provider Surgery | DX: K64.8 Other hemorrhoids (principal) | CPT/HCPCS: 99202 ==

== ENCOUNTER → 2021-08-09 09:31 | Outpatient (BNVA) | payer MEDICARE, OTHER, SELFPAY | PROVIDERS: PCP Nurse Practitioner Family; Visit Provider Internal Medicine | DX: E11.9 Type 2 diabetes mellitus without complications (principal); E78.5 Hyperlipidemia, unspecified; E55.9 Vitamin D deficiency, unspecified; I10 Essential (primary) hypertension | CPT/HCPCS: Q3014 ==

== ENCOUNTER → 2021-09-03 10:38 | Outpatient (BNVA) | payer MEDICARE, OTHER, SELFPAY | PROVIDERS: PCP Nurse Practitioner Family; Visit Provider Registered Nurse Diabetes Educator | DX: E11.9 Type 2 diabetes mellitus without complications (principal) | CPT/HCPCS: 99211 ==

== ENCOUNTER 2021-09-06 11:09 | Outpatient (REF) | payer MEDICARE, OTHER, SELFPAY ==
[2021-09-06 11:41] LABS: MANUAL DIFF FLAG NO
[2021-09-06 12:14] LABS: Basophils Absolute Auto 0.1 X10*3/uL (0.0-0.2); Basophils Percent Auto 0.9 % (0-2); Eosinophils Absolute Auto 0.3 X10*3/uL (0.0-0.4); Eosinophils Percent Auto 5.1 % (0-4); Hematocrit 38.6 % (37.0-47.0); Hemoglobin 12.6 g/dl (12.0-16.0); Imm Gran Abs Auto 0.04 X10*3/uL (0.00-0.03); Imm Gran Pct Auto 0.6 % (0.0-0.4); Lymphocytes Absolute Auto 1.7 X10*3/uL (1.2-4.9); Mean Corpuscular HGB Conc 32.6 g/dl (31.0-35.0); Mean Corpuscular Hemoglobin 31.6 pg (27.0-33.0); Mean Corpuscular Volume 96.7 fL (80.0-98.0); Mean Platelet Volume 8.8 fL (9.4-12.3); Monocytes Absolute Auto 0.6 X10*3/uL (0.1-1.2); Monocytes Percent Auto 8.9 % (2-11); Neutrophils Percent Auto 59.5 % (45-73); Platelet Count 308 X10*3/uL (160-400); Red Blood Count 3.99 X10*6/uL (4.20-5.50); Red Cell Distribution Width 12.5 % (11.0-16.0); White Blood Count 6.7 X10*3/uL (4.8-10.8)
[2021-09-06 12:44] LABS: Alanine Aminotransferase 39 U/L (0-31); Albumin Level 4.2 g/dL (3.5-5.0); Alkaline Phosphatase 69 U/L (39-117); Anion Gap 15 (12-20); Aspartate Amino Transferase 39 U/L (5-31); Bilirubin Total 0.5 mg/dL (0.0-1.0); Blood Urea Nitrogen 16 mg/dL (9-16); Calcium 9.4 mg/dL (8.4-10.2); Carbon Dioxide 24 mmol/L (22-29); Chloride 107 mmol/L (96-108); Cholesterol 189 mg/dL; Estimated Glomerular Filt Rate > 60; Glucose Fasting 101 mg/dL (60-99); HDL Cholesterol 61 mg/dL; LDL Cholesterol Calculated 106 mg/dl; Potassium 4.5 mmol/L (3.3-5.1); Sodium 141 mmol/L (135-145); Total Protein 6.8 g/dL (6.5-8.0); Triglycerides 111 mg/dL
[2021-09-06 13:05] LABS: TSH reflex Free T4 0.71 uIU/mL (0.32-4.0)
[2021-09-09 19:06] LABS: Vitamin D 25-OH, D2 <4 ng/mL; Vitamin D 25-OH, D3 54 ng/mL; Vitamin D 25-OH, Total 54 ng/mL (30-100)
== END 2021-09-06 11:10 | disposition home or self-care (01) ==
LOC: HO.LAB 11:09
PROVIDERS: PCP Nurse Practitioner Family; Visit Provider Nurse Practitioner Family
DX: E11.65 Type 2 diabetes mellitus with hyperglycemia (principal); I10 Essential (primary) hypertension; E78.5 Hyperlipidemia, unspecified; E78.00 Pure hypercholesterolemia, unspecified; E55.9 Vitamin D deficiency, unspecified; F32.9 Major depressive disorder, single episode, unspecified
CPT/HCPCS: 36415; 80053; 80061; 82306; 84443; 85025

== ENCOUNTER 2021-10-06 11:32 | Outpatient (REF) | payer SELFPAY | END 2021-10-06 11:33 | disposition home or self-care (01) | LOC: HO.HAP 11:32 | PROVIDERS: Visit Provider Nurse Practitioner Family | DX: E11.9 Type 2 diabetes mellitus without complications (principal); H90.3 Sensorineural hearing loss, bilateral; Z46.1 Encounter for fitting and adjustment of hearing aid; Z79.01 Long term (current) use of anticoagulants; Z71.89 Other specified counseling | CPT/HCPCS: 99211; V5267 ==

== ENCOUNTER → 2021-10-18 10:46 | Outpatient (BNVA) | payer MEDICARE, OTHER, SELFPAY | PROVIDERS: PCP Nurse Practitioner Family; Visit Provider Dietitian, Registered | DX: E11.9 Type 2 diabetes mellitus without complications (principal); Z79.4 Long term (current) use of insulin; Z71.3 Dietary counseling and surveillance | CPT/HCPCS: 97802 ==

== ENCOUNTER 2021-12-14 10:43 | Outpatient (REF) | payer MEDICARE, OTHER, SELFPAY ==
[2021-12-14 12:13] LABS: Estimated Average Glucose 151 mg/dL; Hemoglobin A1c % 6.9 %
[2021-12-14 12:47] LABS: Alanine Aminotransferase 32 U/L (0-31); Albumin Level 4.3 g/dL (3.5-5.0); Alkaline Phosphatase 68 U/L (39-117); Anion Gap 18 (12-20); Aspartate Amino Transferase 32 U/L (5-31); Bilirubin Total 0.7 mg/dL (0.0-1.0); Blood Urea Nitrogen 19 mg/dL (9-16); Calcium 9.7 mg/dL (8.4-10.2); Carbon Dioxide 27 mmol/L (22-29); Chloride 102 mmol/L (96-108); Estimated Glomerular Filt Rate > 60; Glucose Random 145 mg/dL (60-115); Potassium 4.6 mmol/L (3.3-5.1); Sodium 142 mmol/L (135-145); Total Protein 7.2 g/dL (6.5-8.0)
== END 2021-12-14 10:44 | disposition home or self-care (01) ==
LOC: HO.LAB 10:43
PROVIDERS: PCP Nurse Practitioner Family; Visit Provider Internal Medicine
DX: E11.9 Type 2 diabetes mellitus without complications (principal)
CPT/HCPCS: 36415; 80053; 83036

== ENCOUNTER 2021-12-24 14:42 | Emergency (ER) | payer MEDICARE, OTHER, SELFPAY ==
[2021-12-24 14:45] VITALS: BP 161/59; PULSE 67; RESP 18; TEMP 36.2; O2SAT 100; BMI 32.3
[2021-12-24 15:16] LABS: MANUAL DIFF FLAG NO
[2021-12-24 15:17] LABS: Basophils Absolute Auto 0.1 X10*3/uL (0.0-0.2); Basophils Percent Auto 0.7 % (0-2); Eosinophils Absolute Auto 0.3 X10*3/uL (0.0-0.4); Eosinophils Percent Auto 3.6 % (0-4); Hematocrit 40.1 % (37.0-47.0); Hemoglobin 13.4 g/dl (12.0-16.0); Imm Gran Abs Auto 0.02 X10*3/uL (0.00-0.03); Imm Gran Pct Auto 0.2 % (0.0-0.4); Lymphocytes Percent Auto 23.1 % (20-40); Mean Corpuscular HGB Conc 33.4 g/dl (31.0-35.0); Mean Corpuscular Hemoglobin 31.5 pg (27.0-33.0); Mean Corpuscular Volume 94.4 fL (80.0-98.0); Mean Platelet Volume 8.8 fL (9.4-12.3); Monocytes Absolute Auto 0.8 X10*3/uL (0.1-1.2); Monocytes Percent Auto 9.4 % (2-11); Neutrophils Absolute Auto 5.4 x10*3/uL (2.0-8.3); Platelet Count 330 X10*3/uL (160-400); Red Blood Count 4.25 X10*6/uL (4.20-5.50); Red Cell Distribution Width 12.4 % (11.0-16.0); White Blood Count 8.6 X10*3/uL (4.8-10.8)
[2021-12-24 15:18] LABS: Appearance Urine Hazy; Color Urine Yellow; Glucose Urine UA Negative (Negative); Leukocyte Esterase Urine Trace (Negative); Nitrite Urine Negative (Negative); Specific Gravity - Urine >= 1.030 (1.005-1.025); UMIC TRIGGER UACC YES; Urine Blood Negative (Negative); Urine Ketones Trace mg/dL (Negative); Urine Protein Negative (Neg-Trace)
[2021-12-24 15:27] LABS: Bacteria Urine Trace (None Seen); RBC Urine 0-2 /HPF (0-2); Squamous Epithelial Cell Urine 0-2 /HPF (0-2); WBC Urine 0-5 /HPF (0-5)
[2021-12-24 15:28] LABS: Hyaline Casts Urine 0-2 /LPF (0-2)
[2021-12-24 15:39] LABS: Alanine Aminotransferase 38 U/L (0-31); Albumin Level 4.4 g/dL (3.5-5.0); Alkaline Phosphatase 67 U/L (39-117); Anion Gap 15 (12-20); Aspartate Amino Transferase 37 U/L (5-31); Bilirubin Direct 0.2 mg/dL (0.0-0.5); Bilirubin Total 0.5 mg/dL (0.0-1.0); Blood Urea Nitrogen 20 mg/dL (9-16); Calcium 10.1 mg/dL (8.4-10.2); Carbon Dioxide 23 mmol/L (22-29); Chloride 107 mmol/L (96-108); Creatinine Clr Calc Pharmacy 57.7; Estimated Glomerular Filt Rate > 60; Glucose Random 154 mg/dL (60-115); Lipase 14 U/L (8-78); Potassium 4.2 mmol/L (3.3-5.1); Sodium 141 mmol/L (135-145); Total Protein 7.1 g/dL (6.5-8.0)
== END 2021-12-24 17:41 | disposition left against medical advice (07) ==
PROVIDERS: Emergency Provider Emergency Medicine
DX: R19.7 Diarrhea, unspecified (principal); R53.1 Weakness; Z79.899 Other long term (current) drug therapy
CPT/HCPCS: 36415; 80053; 81001; 82248; 82947; 83690; 85025; 99212; 99282; 99283

== ENCOUNTER 2022-03-17 09:13 | Outpatient (REF) | payer MEDICARE, OTHER, SELFPAY ==
[2022-03-17 09:48] LABS: Hematocrit 40.6 % (37.0-47.0); Hemoglobin 13.6 g/dl (12.0-16.0); Mean Corpuscular HGB Conc 33.5 g/dl (31.0-35.0); Mean Corpuscular Hemoglobin 32.2 pg (27.0-33.0); Mean Corpuscular Volume 96.2 fL (80.0-98.0); Mean Platelet Volume 8.9 fL (9.4-12.3); Platelet Count 325 X10*3/uL (160-400); Red Blood Count 4.22 X10*6/uL (4.20-5.50); Red Cell Distribution Width 12.1 % (11.0-16.0); White Blood Count 8.5 X10*3/uL (4.8-10.8)
[2022-03-17 13:04] LABS: Alanine Aminotransferase 34 U/L (0-31); Albumin Level 4.4 g/dL (3.5-5.0); Alkaline Phosphatase 60 U/L (39-117); Anion Gap 15 (12-20); Aspartate Amino Transferase 37 U/L (5-31); Bilirubin Total 0.6 mg/dL (0.0-1.0); Blood Urea Nitrogen 29 mg/dL (9-16); Calcium 9.9 mg/dL (8.4-10.2); Carbon Dioxide 25 mmol/L (22-29); Chloride 106 mmol/L (96-108); Cholesterol 192 mg/dL; Estimated Glomerular Filt Rate 50; Glucose Random 122 mg/dL (60-115); HDL Cholesterol 57 mg/dL; LDL Cholesterol Calculated 105 mg/dl; Potassium 4.8 mmol/L (3.3-5.1); Sodium 141 mmol/L (135-145); Total Protein 7.1 g/dL (6.5-8.0); Triglycerides 153 mg/dL
== END 2022-03-17 09:14 | disposition home or self-care (01) ==
LOC: HO.LAB 09:13
PROVIDERS: PCP Nurse Practitioner Family; Visit Provider Nurse Practitioner Family
DX: I10 Essential (primary) hypertension (principal); E78.5 Hyperlipidemia, unspecified
CPT/HCPCS: 36415; 80053; 80061; 85027

== ENCOUNTER 2022-03-21 09:34 | Outpatient (REF) | payer MEDICARE, OTHER, SELFPAY ==
[2022-03-21 11:16] LABS: Hepatitis B Core Antibody Nonreactive (Nonreactive); Hepatitis B Surface Antigen Negative (Negative); ~HepC Num1 0.09 S/CO (0.00-0.79); ~Hepatitis A Antibody IgM Nonreactive (Nonreactive); ~Hepatitis B Surface Antibody NONREACTIVE (Nonreactive); ~Hepatitis C Antibody Nonreactive (Nonreactive)
[2022-03-23 06:06] LABS: HBS Num1 4.23 mIU/mL (0-7.99); HBc Num1 0.12 S/CO (0.00-0.79); HBsAGNum1 0.27 S/CO (0.00-0.99); Hepatitis A Antibody IgM 0.08 Index (0-0.79)
== END 2022-03-21 09:35 | disposition home or self-care (01) ==
LOC: HO.LAB 09:34
PROVIDERS: PCP Nurse Practitioner Family; Visit Provider Nurse Practitioner Family
DX: R79.89 Other specified abnormal findings of blood chemistry (principal)
CPT/HCPCS: 36415; 86704; 86706; 86709; 86803; 87340

== ENCOUNTER 2022-04-26 08:25 | Outpatient (REF) | payer MEDICARE, OTHER, SELFPAY ==
--- NOTE | ~2022-04-26 | US_ITS ---
EXAMINATION: US ABDOMEN LIMITED CLINICAL INFORMATION: Other specified abnormal findings of blood chemistry. COMPARISON: None TECHNIQUE: Real-time imaging of the right upper quadrant abdominal viscera. FINDINGS: PANCREAS: Visualized portions of the pancreas are unremarkable. The pancreatic tail is obscured by bowel gas. LIVER: Liver is enlarged measuring 18.5 cm. The liver contour is normal. There is diffuse increased liver parenchymal echogenicity, consistent with hepatic steatosis. No focal hepatic lesion. There is no intrahepatic biliary duct dilatation seen. GALLBLADDER: The gallbladder is physiologically distended without evidence of stones, sludge, polyps, or pericholecystic fluid. COMMON BILE DUCT: Normal in caliber measuring 0.5 cm in diameter. RIGHT KIDNEY: 5 mm upper pole nonobstructing stone. Benign-appearing renal cysts measuring up to 1.5 cm. Followup imaging is not routinely recommended for benign appearing cysts. No hydronephrosis The kidney measures 9.9 cm in maximum dimension. FREE FLUID: None. US/US abdomen limited IMPRESSION: 1. Hepatomegaly with hepatic steatosis. 2. 5 mm nonobstructing right renal stone.
== END 2022-04-26 08:26 | disposition home or self-care (01) ==
LOC: HO.US 08:25
PROVIDERS: PCP Nurse Practitioner Family; Visit Provider Nurse Practitioner Family
DX: R79.89 Other specified abnormal findings of blood chemistry (principal)
CPT/HCPCS: 76705

== ENCOUNTER 2022-05-02 13:08 | Outpatient (REF) | payer MEDICARE, OTHER, SELFPAY | END 2022-05-02 13:09 | disposition home or self-care (01) | LOC: HO.SH 13:08 | PROVIDERS: Visit Provider Nurse Practitioner Family | DX: Z01.118 Encounter for examination of ears and hearing with other abnormal findings (principal); H90.3 Sensorineural hearing loss, bilateral | CPT/HCPCS: 92552; 92556; 92567 ==

== ENCOUNTER 2022-05-30 12:26 | Outpatient (REF) | payer SELFPAY ==
--- NOTE | 2022-06-01 13:30 | MHC.AU.HA3 ---
Hearing Instrument Follow-Up- Binaural Date of Visit: 05/30/22 Right Ear: Carson, Model, Color, Serial Number: Federica Mercer P90-13T, #[id number], Silver Sharpe Exercise Physiologist Repair Warranty: 11/19/2023 Exercise Physiologist Loss and Damage Warranty: 11/19/2023 Battery Size: 13 Biodiesel Plant Superintendent/Slim Tube: #2 UP Earmold/Dome/CShell/SlimTip:Federica Skeleton integrated c-shell [id number] Warranty 12/20/2020 Type of Wax Guard: CeruStop Dispensed By: [facility] Date of Fittin09/04/2020 Left Ear: Carson, Model, Color, Serial Number: Federica Mercer P90-13T, #[id number], Silver Sharpe Exercise Physiologist Repair Warranty: 11/19/2023 Exercise Physiologist Loss and Damage Warranty: 11/19/2023 Battery Size: 13 Biodiesel Plant Superintendent/Slim Tube: #2 UP Earmold/Dome/CShell/SlimTip: Phonchele Skeleton integrated c-shell #[id number] Warranty 12/20/2020 Type of Wax Guard: CeruStop Dispensed By: [facility] Date of Fittin09/04/2020 Follow-Up Summary: Patient was scheduled for an appointment tomorrow to address an issue with her left cShell; however, due to the predicted snowstorm, she dropped the left hearing aid and mold off for repair. The skeleton lock has broken off the cShell. She left a note stating that if she can't come in for a new impression, then maybe Federica could make a copy of the last one based on the impression on file. She also left her previous left mold and hearing aid to be fixed so she could use those as a back-up. The tone hook and mold had come detached. On the older left hearing aid, the mold was re-tubed and the tone hook was replaced. It is working well after maintenance. Called the patient to discuss the broken left cShell. She reports that the left cShell had been working its way out of her ear and she was frequently needing to push it back in. Discussed that it would be better to take a new impression of her ear to address the fit issue, rather than make a copy of the last one. She was able to come in today to cotton picking machine operator the repaired older left hearing aid. Luis E Wakefield, KIARRA was able to take a new impression of her left ear. The impression was sent to [employer] for a new cShell w/skeleton lock. Put in instructions that the canal may need to be made longer to help with retention. She was given her newer left hearing aid and the broken cShell to hold onto until the new cShell arrives. Recommendations: Patient will be contacted when materials have arrived. Diagnosis Code(s): Primary Diagnosis: H90.3 Bilateral Sensorineural Hearing Loss Signature: Provider: Sallie Arora, K[facility]ARRA
== END 2022-05-30 12:27 | disposition home or self-care (01) ==
LOC: HO.HAP 12:26
PROVIDERS: Visit Provider Nurse Practitioner Family
DX: Z13.89 Encounter for screening for other disorder (principal)

== ENCOUNTER 2022-06-16 09:40 | Outpatient (REF) | payer SELFPAY ==
--- NOTE | 2022-06-16 10:10 | MHC.AU.HFU ---
Hearing Instrument Follow-Up- Binaural Date of Visit: 06/16/22 Right Ear: Supervisor Bindery: Phonak Audeo P90-13T, #[id number], Silver Sharpe Repair Warranty: 11/19/2023 Loss and Damage Warranty: 11/19/2023 Service Plan: 11/19/2023 Battery Size: 13 Color: Silver Sharpe Criminal Justice Professor: #2 UP Type of Mold: Phonak Skeleton integrated c-shell #[id number] warranty 12/20/2020 Type of Wax Guard: CeruStop Dispensed By: [facility] Date of Fittin09/04/2020 Left Ear: Supervisor Bindery: Phonak Audeo P90-13T, #[id number], Silver Sharpe Repair Warranty: 11/19/2023 Loss and Damage Warranty: 11/19/2023 Service Plan: 11/19/2023 Battery Size: 13 Color: Silver Sahrpe Criminal Justice Professor: #2 UP Type of Mold: Phonak Skeleton integrated c-shell #[id number] Warranty 09/06/2022 Type of Wax Guard: CeruStop Dispensed By: [facility] Date of Fittin09/04/2020 Follow-Up Summary: Fit the new left skeleton c-shell with patient reporting good fit and sound quality. Paid $185.00. Patient has been using her old hearing aids with standard earmolds which were returned to her. One package of wax guards was provided by [employer] for the patient. Recommendations: Hearing instrument follow-up or maintenance as needed. Please contact our clinic with any questions or concerns. Diagnosis Code(s):Primary Diagnosis: H90.3 Bilateral Sensorineural Hearing Loss Services Performed:Earmold (Quantity): 1 Signature:Provider: Sallie Wakefield, [facility]
== END 2022-06-16 09:41 | disposition home or self-care (01) ==
LOC: HO.HAP 09:40
PROVIDERS: Visit Provider Nurse Practitioner Family
DX: Z46.1 Encounter for fitting and adjustment of hearing aid (principal); H90.3 Sensorineural hearing loss, bilateral
CPT/HCPCS: 92700; V5264

== ENCOUNTER 2022-06-17 09:35 | Outpatient (REF) | payer MEDICARE, OTHER, SELFPAY ==
[2022-06-17 11:03] LABS: Alanine Aminotransferase 37 U/L (0-31); Albumin Level 4.3 g/dL (3.5-5.0); Alkaline Phosphatase 55 U/L (39-117); Anion Gap 14 (12-20); Aspartate Amino Transferase 35 U/L (5-31); Bilirubin Total 0.7 mg/dL (0.0-1.0); Blood Urea Nitrogen 32 mg/dL (9-16); Calcium 9.1 mg/dL (8.4-10.2); Carbon Dioxide 25 mmol/L (22-29); Chloride 107 mmol/L (96-108); Cholesterol 184 mg/dL; Estimated Glomerular Filt Rate 49; Glucose Fasting 132 mg/dL (60-99); HDL Cholesterol 56 mg/dL; LDL Cholesterol Calculated 102 mg/dl; Potassium 4.6 mmol/L (3.3-5.1); Sodium 141 mmol/L (135-145); Total Protein 6.9 g/dL (6.5-8.0); Triglycerides 133 mg/dL
[2022-06-17 11:08] LABS: Creatinine Urine 283.46 mg/dL; Microalbum/Creatinine Ratio Ur 4.9 ug/mg cr
[2022-06-17 11:20] LABS: TSH reflex Free T4 0.78 uIU/mL (0.32-4.0)
== END 2022-06-17 09:36 | disposition home or self-care (01) ==
LOC: HO.LAB 09:35
PROVIDERS: PCP Nurse Practitioner Family; Visit Provider Nurse Practitioner Family
DX: I10 Essential (primary) hypertension (principal); E11.9 Type 2 diabetes mellitus without complications
CPT/HCPCS: 36415; 80053; 80061; 82043; 84443

== ENCOUNTER → 2022-06-21 09:44 | Outpatient (BNVA) | payer MEDICARE, OTHER, SELFPAY | PROVIDERS: PCP Nurse Practitioner Family; Visit Provider Nurse Practitioner Family | DX: N20.0 Calculus of kidney (principal); N28.1 Cyst of kidney, acquired | CPT/HCPCS: 99202 ==

== ENCOUNTER 2022-06-28 14:02 | Outpatient (REF) | payer MEDICARE, OTHER, SELFPAY ==
--- NOTE | ~2022-06-28 | XR_ITS ---
EXAMINATION: XR FOOT, RIGHT CLINICAL INFORMATION: Right foot pain. COMPARISON: None available. TECHNIQUE: AP, lateral, and oblique views of the right foot. FINDINGS: Moderate to severe degenerative disc disease is seen at the proximal interphalangeal joint of the fifth digit. Minimal to mild distal interphalangeal degenerative joint changes are seen in the remainder the digits. There is no overt fracture. The tarsal bones are normally aligned. Small plantar and retrocalcaneal spurs are seen. Moderate soft tissue swelling. XR/XR foot RT 2V IMPRESSION: 1. Moderate to severe degenerative disc disease at the proximal interphalangeal joint of the fifth digit. No definitive acute abnormality. Correlate with physical exam. 2. Minimal to mild distal interphalangeal degenerative joint changes in the remainder of the digits. 3. Small degenerative calcaneal spurs.
[2022-06-28 14:55] LABS: B Type Natriuretic Peptide 52 pg/mL (<100)
[2022-06-28 15:01] LABS: Estimated Average Glucose 146 mg/dL; Hemoglobin A1c % 6.7 %
== END 2022-06-28 14:03 | disposition home or self-care (01) ==
LOC: HO.LAB 14:02
PROVIDERS: PCP Nurse Practitioner Family; Visit Provider Nurse Practitioner Family
DX: R60.0 Localized edema (principal); M79.671 Pain in right foot; E11.9 Type 2 diabetes mellitus without complications
CPT/HCPCS: 36415; 73620; 83036; 83880

== ENCOUNTER 2022-07-24 17:18 | Emergency (ER) | payer MEDICARE, OTHER, SELFPAY ==
[2022-07-24 17:29] VITALS: BP 158/83; PULSE 69; RESP 18; TEMP 36.2; O2SAT 98; BMI 32.6
--- NOTE | 2022-07-24 18:58 | ED.WEAKNESS ---
HPI - Weakness General Chief complaint: Weakness Stated complaint: weakness Time Seen by Provider: 07/24/22 18:55 Source: patient Mode of arrival: ambulatory Limitations: no limitations History of Present Illness HPI Narrative: Patient is still OCD, fibromyalgia, depression, hypertension, hypothyroidism comes here for increased weakness last 1 month. Has seen her PCP had workup done which was normal including the TSH has poor sleep but has no change in sleep pattern no constipation no chest pain or shortness of breath feels her depression is same as before Related Data Home Medications Medication Instructions Recorded Confirmed aspirin 81 mg tablet,delayed 81 mg PO DAILY 01/01/21 06/28/22 release (Adult Aspirin Regimen) levothyroxine 150 mcg tablet 150 mcg PO DAILY 01/01/21 06/28/22 lorazepam 0.5 mg tablet 0.5 mg PO TID 01/01/21 06/28/22 biotin 1 mg capsule 1 mg PO DAILY 05/17/21 06/28/22 omega 3-hri-ser-fish oil 1,000 mg 1 cap PO DAILY 05/17/21 06/28/22 (120 mg-180 mg) capsule (Fish Oil) blood sugar diagnostic (OneTouch #10 ea 05/27/21 06/28/22 Ultra Test strips) levocetirizine 5 mg tablet (Xyzal) 5 mg PO DAILY 09/09/21 06/28/22 hydroxyzine HCl 25 mg tablet 25 - 50 mg PO 12/16/21 06/28/22 acetaminophen 650 mg 650 mg PO Q8H 03/22/22 06/28/22 tablet,extended release (Tylenol Arthritis Pain) haloperidol 5 mg tablet 5 mg PO QAM 06/21/22 06/28/22 aripiprazole 5 mg tablet (Abilify) 5 mg PO DAILY 06/28/22 06/28/22 Previous Rx's Medication Instructions Recorded hydrocortisone 2.5 % topical cream 1 appl IA BID-TID PRN hemorrhoids 09/09/21 with perineal applicator #30 grams zinc oxide 12 % topical cream 1 appl topical QID PRN skin 12/29/21 (Mickey Protect (zinc oxide)) irritation 10 days #142 grams insulin glargine 100 unit/mL (3 56 unit (0.56 mL) subcut QAM #15 mL 05/19/22 mL) subcutaneous pen (Alvaradoaglar KwikPen U-100 Insulin) omeprazole 40 mg capsule,delayed 40 mg PO DAILY #90 caps 06/17/22 release diclofenac sodium 50 mg 50 mg PO BID #180 tabs 07/08/22 tablet,delayed release simvastatin 40 mg tablet 40 mg PO BEDTIME #90 tabs 07/08/22 blood sugar diagnostic (OneTouch #100 ea 07/14/22 Ultra Test strips) furosemide 20 mg tablet (Lasix) 10 mg PO DAILY #2 tabs 07/22/22 pregabalin 50 mg capsule (Lyrica) 50 mg PO BID #30 caps 07/22/22 magnesium oxide 400 mg (241.3 mg 400 mg PO DAILY #30 tabs 07/24/22 magnesium) tablet Allergies Allergy/AdvReac Type Severity Reaction Status Date / Time codeine [Codeine] Allergy Unknown NAUSEA AND Verified 07/24/22 17:29 VOMITING, nausea pregabalin Allergy Unknown Confusion Verified 07/24/22 17:29 rosuvastatin [Crestor] Allergy Unknown joint pain Verified 07/24/22 17:29 NSAIDS (Non-Steroidal Allergy Swelling Verified 07/24/22 17:29 Anti-Inflamma oxycodone [From OxyContin] Allergy Itching Verified 07/24/22 17:29 [place] Insulin Allergy Unknown severe Uncoded 06/21/22 11:41 itching tapes, adhesives, tegaderm, Allergy Unknown rash Uncoded 06/21/22 11:41 st wellbutrin Allergy Unknown rash Uncoded 06/21/22 11:41 lexapro AdvReac Severe lethargic Uncoded 06/28/22 13:14 Review of Systems Review of Systems: Yes all other systems are reviewed and are negative [facility] Past Medical History Medical History Arthralgia of shoulder region, left Cellulitis of leg, left Cervical spondylitis with radiculitis Confusion Depression Diabetes DJD (degenerative joint disease) Encounter to establish care Fibromyalgia GERD (gastroesophageal reflux disease) HLD (hyperlipidemia) HTN (hypertension) Myofascial pain on left side Neuropathy OCD (obsessive compulsive disorder) SI (sacroiliac) joint dysfunction Skin excoriation Skin rash Urinary urgency Vitamin D deficiency Surgical History History of surgery Family History Family History Father No problems noted. Mother No problems noted. Social History Social History Housing: House Alcohol intake: former Patient Tobacco Use Status: Never used Tobacco Tobacco use type: Cigarette Smoked in Last 30 Days: No e-Cigarette/Vaping Use: Never Used Second Hand Smoke Exposure: No Use of substances other than those prescribed or required for medical reasons: No Advance Directives: No Advance Directives Information Provided: No service: No Current occupational status: retired Cognitive needs: Yes (cane) Hearing needs: Yes (hearing aide) Vision needs: Yes (glasses) Physical Exam Vital Signs: Vital Signs: Last Vital Signs Temp 97.7 F 07/24/22 20:00 Pulse 61 07/24/22 20:00 Resp 18 07/24/22 20:00 BP 150/80 H 07/24/22 20:00 Pulse Ox 96 07/24/22 20:00 O2 Del Method Room Air 07/24/22 20:00 BMI result Body Mass Index 32.6 Appearance: Alert. Oriented X3. No acute distress. Eyes: PERRLA, No Nystagmus ENT: Pharynx normal. Oral Mucosa moist Neck: Normal inspection. Neck supple. CVS: Normal heart rate and rhythm. Pulses normal. Respiratory: No respiratory distress. Equal air entry bilateral, no wheezing/rales/rhonchi Abdomen: Soft and nontender. Bowel sounds are present, no mass palpable, no CVA tenderness Skin: Skin warm and dry. Normal skin color. Normal skin turgor. Extremities: No lower extremity edema. No calf tenderness Neuro: Oriented X 3. No motor deficit. No sensory deficit.No cerebellar signs , cranial nerves II-XII intact Medications Administered Discontinued Medications Generic Name Dose Route Start Last Admin Trade Name Freq PRN Reason Stop Dose Admin Magnesium Sulfate 2 gm in 50 mls @ 100 mls/hr 07/24/22 20:15 07/24/22 21:20 Magnesium Sulfate/H2o IV 07/24/22 20:44 Infused ONCE ONE Infusion Medical Decision Making Admission/Observation Patient was slightly hypo magnesemia of 1.3 by the cause for her weakness was given IV magnesium in the ER patient felt much better discharge patient home on magnesium oxide tablets Lab Data [facility] Lab Attestation statement: I reviewed the patient's lab results. 07/24/22 19:40 07/24/22 19:40 Labs: Lab Results 07/24/22 07/24/22 07/24/22 Range/Units 19:40 19:40 19:40 WBC 9.0 (4.8-10.8) X10*3/uL RBC 4.14 L (4.20-5.50) X10*6/uL Hgb 13.4 (12.0-16.0) g/dl Hct 39.8 (37.0-47.0) % MCV 96.1 (80.0-98.0) fL MCH 32.4 (27.0-33.0) pg MCHC 33.7 (31.0-35.0) g/dl RDW 12.4 (11.0-16.0) % Plt Count 280 (160-400) X10*3/uL MPV 9.4 (9.4-12.3) fL Immature Gran % (Auto) 0.4 (0.0-0.4) % Neut % (Auto) 65.2 (45-73) % Lymph % (Auto) 22.3 (20-40) % [place] % (Auto) 8.4 (2-11) % Eos % (Auto) 3.0 (0-4) % Baso % (Auto) 0.7 (0-2) % Lymph # (Auto) 2.0 (1.2-4.9) X10*3/uL [place] # (Auto) 0.8 (0.1-1.2) X10*3/uL Eos # (Auto) 0.3 (0.0-0.4) X10*3/uL Baso # (Auto) 0.1 (0.0-0.2) X10*3/uL Abs Immat Gran (auto) 0.04 H (0.00-0.03) X10*3/uL Absolute Neuts (auto) 5.9 (2.0-8.3) x10*3/uL Absolute Nucleated RBC 0.000 (0.0-0.012) X10*3/uL Nucleated RBC % (auto) 0.0 (0.0-0.2) /100WBC Sodium 140 (135-145) mmol/L Potassium 4.3 (3.3-5.1) mmol/L Chloride 107 (96-108) mmol/L Carbon Dioxide 23 (22-29) mmol/L Anion Gap 14 (12-20) BUN 21 H (9-16) mg/dL Creatinine 0.99 (0.5-1.4) mg/dL Estim Creat Clear Calc 47.9 Estimated GFR 55 Random Glucose 162 H (60-115) mg/dL Calcium 9.6 (8.4-10.2) mg/dL Magnesium 1.3 L* (1.6-2.6) mg/dL Total Bilirubin 0.6 (0.0-1.0) mg/dL AST 37 H (5-31) U/L ALT 33 H (0-31) U/L Alkaline Phosphatase 59 (39-117) U/L Total Protein 6.8 (6.5-8.0) g/dL Albumin 4.2 (3.5-5.0) g/dL TSH 1.65 (0.32-4.0) uIU/mL Urine Color Yellow Urine Appearance Clear Urine pH 5.5 (5.0-9.0) Ur Specific [place] 1.010 (1.005-1.025) Urine Protein Negative (Neg-Trace) mg/dL Urine Glucose (UA) Negative (Negative) mg/dL Urine Ketones Negative (Negative) mg/dL Urine Blood Negative (Negative) Urine Nitrite Negative (Negative) Ur Leukocyte Esterase Negative (Negative) Discharge Plan Discharge Clinical Impression: Hypomagnesemia, Weakness Patient Disposition: Home, Self-Care Instructions: Weakness (ED), Hypomagnesemia (ED) Additional Instructions: The magnesium level was slightly low Have food continue high about of magnesium like Avocados, chocolate, nuts, tofu, spinach Magnesium tablet 1 tablet daily as prescribed Follow-up with PCP if not better Prescriptions: New magnesium oxide 400 mg (241.3 mg magnesium) tablet 400 mg PO DAILY Qty: 30 0RF No Action Mickey Protect (zinc oxide) 12 % cream 1 appl topical QID PRN (Reason: skin irritation) 10 Days Qty: 142 0RF insulin glargine [Basaglar KwikPen U-100 Insulin] 100 unit/mL (3 mL) insulin pen 56 unit subcut QAM Qty: 15 3RF omeprazole 40 mg capsule,delayed release(DR/EC) 40 mg PO DAILY Qty: 90 0RF simvastatin 40 mg tablet 40 mg PO BEDTIME Qty: 90 0RF diclofenac sodium 50 mg tablet,delayed release (DR/EC) 50 mg PO BID Qty: 180 0RF (DME) OneTouch Ultra Test Strip See Rx Instructions .Route Qty: 100 2RF Rx Instructions: check BS 2-3x/day pregabalin [Lyrica] 50 mg capsule 50 mg PO BID Qty: 30 0RF furosemide [Lasix] 20 mg tablet 10 mg PO DAILY Qty: 2 0RF hydrocortisone 2.5 % cream with perineal applicator 1 appl IA BID-TID PRN (Reason: hemorrhoids) Qty: 30 0RF hydroxyzine HCl 25 mg tablet 25 - 50 mg PO aripiprazole [Abilify] 5 mg tablet 5 mg PO DAILY lorazepam 0.5 mg tablet 0.5 mg PO TID levothyroxine 150 mcg tablet 150 mcg PO DAILY aspirin [Adult Aspirin Regimen] 81 mg tablet,delayed release (DR/EC) 81 mg PO DAILY acetaminophen [Tylenol Arthritis Pain] 650 mg tablet extended release 650 mg PO Q8H biotin 1 mg capsule 1 mg PO DAILY omega 4-jts-axv-fish oil [Fish Oil] 1,000 mg (120 mg-180 mg) capsule 1 cap PO DAILY levocetirizine [Xyzal] 5 mg tablet 5 mg PO DAILY (DME) OneTouch Ultra Test Strip See Rx Instructions Not Applicable TID Qty: 10 Rx Instructions: As directed haloperidol 5 mg tablet 5 mg PO QAM
[2022-07-24 19:46] VITALS: BP 153/75; PULSE 58; RESP 18; TEMP 36.6; O2SAT 97
[2022-07-24 19:47] LABS: MANUAL DIFF FLAG NO
[2022-07-24 19:49] LABS: Basophils Absolute Auto 0.1 X10*3/uL (0.0-0.2); Basophils Percent Auto 0.7 % (0-2); Eosinophils Absolute Auto 0.3 X10*3/uL (0.0-0.4); Hematocrit 39.8 % (37.0-47.0); Hemoglobin 13.4 g/dl (12.0-16.0); Imm Gran Abs Auto 0.04 X10*3/uL (0.00-0.03); Imm Gran Pct Auto 0.4 % (0.0-0.4); Lymphocytes Percent Auto 22.3 % (20-40); Mean Corpuscular HGB Conc 33.7 g/dl (31.0-35.0); Mean Corpuscular Hemoglobin 32.4 pg (27.0-33.0); Mean Corpuscular Volume 96.1 fL (80.0-98.0); Mean Platelet Volume 9.4 fL (9.4-12.3); Monocytes Absolute Auto 0.8 X10*3/uL (0.1-1.2); Monocytes Percent Auto 8.4 % (2-11); Neutrophils Absolute Auto 5.9 x10*3/uL (2.0-8.3); Neutrophils Percent Auto 65.2 % (45-73); Platelet Count 280 X10*3/uL (160-400); Red Blood Count 4.14 X10*6/uL (4.20-5.50); Red Cell Distribution Width 12.4 % (11.0-16.0)
[2022-07-24 19:50] LABS: Appearance Urine Clear; Color Urine Yellow; Glucose Urine UA Negative (Negative); Leukocyte Esterase Urine Negative (Negative); Nitrite Urine Negative (Negative); PH 5.5 (5.0-9.0); Urine Blood Negative (Negative); Urine Ketones Negative (Negative); Urine Protein Negative (Neg-Trace)
[2022-07-24 20:00] VITALS: BP 150/80; PULSE 61; RESP 18; TEMP 36.5; O2SAT 96
[2022-07-24 20:13] LABS: Alanine Aminotransferase 33 U/L (0-31); Albumin Level 4.2 g/dL (3.5-5.0); Alkaline Phosphatase 59 U/L (39-117); Anion Gap 14 (12-20); Aspartate Amino Transferase 37 U/L (5-31); Bilirubin Total 0.6 mg/dL (0.0-1.0); Blood Urea Nitrogen 21 mg/dL (9-16); Calcium 9.6 mg/dL (8.4-10.2); Carbon Dioxide 23 mmol/L (22-29); Chloride 107 mmol/L (96-108); Creatinine Clr Calc Pharmacy 47.9; Estimated Glomerular Filt Rate 55; Glucose Random 162 mg/dL (60-115); Magnesium 1.3 mg/dL (1.6-2.6); Potassium 4.3 mmol/L (3.3-5.1); Sodium 140 mmol/L (135-145); Total Protein 6.8 g/dL (6.5-8.0)
[2022-07-24 20:26] LABS: Thyroid Stimulating Hormone 1.65 uIU/mL (0.32-4.0)
[2022-07-24] MEDS: Magnesium Sulfate/H2O 2 GM/50 ML PIGGYBACK IV (20:48)
== END 2022-07-24 22:14 | disposition home or self-care (01) ==
PROVIDERS: Emergency Provider Internal Medicine; PCP Nurse Practitioner Family
DX: E83.42 Hypomagnesemia (principal); R53.1 Weakness; F33.1 Major depressive disorder, recurrent, moderate; I10 Essential (primary) hypertension; F42.9 Obsessive-compulsive disorder, unspecified; Z79.899 Other long term (current) drug therapy
CPT/HCPCS: 36415; 80053; 81003; 83735; 84443; 85025; 96365; 99284; J3475

== ENCOUNTER 2022-09-27 08:53 | Outpatient (REF) | payer MEDICARE, OTHER, SELFPAY ==
[2022-09-27 10:08] LABS: Estimated Average Glucose 117 mg/dL; Hemoglobin A1c % 5.7 %
[2022-09-27 10:36] LABS: Alanine Aminotransferase 31 U/L (0-31); Albumin Level 4.1 g/dL (3.5-5.0); Alkaline Phosphatase 58 U/L (39-117); Anion Gap 16 (12-20); Aspartate Amino Transferase 29 U/L (5-31); Bilirubin Total 0.6 mg/dL (0.0-1.0); Blood Urea Nitrogen 27 mg/dL (9-16); Calcium 9.6 mg/dL (8.4-10.2); Carbon Dioxide 24 mmol/L (22-29); Chloride 108 mmol/L (96-108); Estimated Glomerular Filt Rate 52; Glucose Random 124 mg/dL (60-115); Potassium 4.2 mmol/L (3.3-5.1); Sodium 144 mmol/L (135-145)
== END 2022-09-27 08:54 | disposition home or self-care (01) ==
LOC: HO.LAB 08:53
PROVIDERS: Visit Provider Nurse Practitioner Family
DX: E11.9 Type 2 diabetes mellitus without complications (principal); R60.0 Localized edema
CPT/HCPCS: 36415; 80053; 83036

== ENCOUNTER 2022-12-12 09:43 | Outpatient (REF) | payer MEDICARE, OTHER, SELFPAY ==
--- NOTE | ~2022-12-12 | US_ITS ---
EXAMINATION: US RETROPERITONEAL LIMITED (RENAL ONLY) CLINICAL INFORMATION: Calculus of kidney. COMPARISON: Ultrasound abdomen limited 04/26/2022. TECHNIQUE: Real-time imaging of the kidneys. FINDINGS: RIGHT KIDNEY: 9.8 x 3.8 x 5.4 cm (SAG x AP x TRV). The kidney is normal in size, contour, and echogenicity. Renal cortical thickness is normal. No hydronephrosis. Benign-appearing renal cysts and likely benign renal cysts measuring up to 2.2 cm. No follow-up imaging recommended. 3 mm nonobstructing upper pole renal stone, previously 5 mm. LEFT KIDNEY: 9.3 x 4.6 x 4.8 cm (SAG x AP x TRV). The kidney is normal in size, contour, and echogenicity. Renal cortical thickness is normal. No renal calculi or hydronephrosis. Benign-appearing renal cysts and likely benign renal cysts measuring up to 4.2 cm. No follow-up imaging recommended. US/US renal BI IMPRESSION: 3 mm nonobstructing right upper pole renal stone, previously 5 mm. No hydronephrosis.
== END 2022-12-12 09:44 | disposition home or self-care (01) ==
LOC: HO.HMGCX 09:43
PROVIDERS: PCP Physician Assistant; Visit Provider Nurse Practitioner Family
DX: N20.0 Calculus of kidney (principal)
CPT/HCPCS: 76775

== ENCOUNTER 2022-12-19 09:45 | Outpatient (REF) | payer MEDICARE, OTHER, SELFPAY ==
[2022-12-19 10:40] LABS: Basophils Percent Auto 0.6 % (0-2); Eosinophils Absolute Auto 0.2 X10*3/uL (0.0-0.4); Eosinophils Percent Auto 3.1 % (0-4); Hemoglobin 13.5 g/dl (12.0-16.0); Imm Gran Abs Auto 0.02 X10*3/uL (0.00-0.03); Imm Gran Pct Auto 0.3 % (0.0-0.4); Lymphocytes Percent Auto 14.7 % (20-40); MANUAL DIFF FLAG NO; Mean Corpuscular HGB Conc 33.8 g/dl (31.0-35.0); Mean Corpuscular Volume 94.8 fL (80.0-98.0); Monocytes Absolute Auto 0.5 X10*3/uL (0.1-1.2); Monocytes Percent Auto 7.6 % (2-11); Neutrophils Percent Auto 73.7 % (45-73); Platelet Count 277 X10*3/uL (160-400); Red Blood Count 4.22 X10*6/uL (4.20-5.50); Red Cell Distribution Width 12.4 % (11.0-16.0); White Blood Count 6.8 X10*3/uL (4.8-10.8)
[2022-12-19 11:13] LABS: Alanine Aminotransferase 24 U/L (0-31); Alkaline Phosphatase 67 U/L (39-117); Anion Gap 13 (12-20); Aspartate Amino Transferase 29 U/L (5-31); Bilirubin Total 0.6 mg/dL (0.0-1.0); Blood Urea Nitrogen 21 mg/dL (9-16); Calcium 9.3 mg/dL (8.4-10.2); Carbon Dioxide 24 mmol/L (22-29); Chloride 109 mmol/L (96-108); Cholesterol 170 mg/dL (<200); Estimated Glomerular Filt Rate 59; Glucose Fasting 103 mg/dL (60-99); HDL Cholesterol 66 mg/dL (>40); LDL Cholesterol Calculated 83 mg/dL (<100); Magnesium 1.7 mg/dL (1.6-2.6); Sodium 142 mmol/L (135-145); Triglycerides 107 mg/dL (<150)
[2022-12-19 11:19] LABS: Estimated Average Glucose 111 mg/dL; Hemoglobin A1c % 5.5 % (<6.0)
[2022-12-19 11:28] LABS: TSH reflex Free T4 1.35 uIU/mL (0.32-4.0)
== END 2022-12-19 09:46 | disposition home or self-care (01) ==
LOC: HO.LAB 09:45
PROVIDERS: PCP Nurse Practitioner Family; Visit Provider Nurse Practitioner Family
DX: E11.9 Type 2 diabetes mellitus without complications (principal); E03.9 Hypothyroidism, unspecified; E78.5 Hyperlipidemia, unspecified; I10 Essential (primary) hypertension; E83.42 Hypomagnesemia
CPT/HCPCS: 36415; 80053; 80061; 83036; 83735; 84443; 85025

== ENCOUNTER 2022-12-26 13:07 | Outpatient (AMB) | payer MEDICARE, OTHER, SELFPAY ==
--- NOTE | 2022-12-26 13:15 | MHC.OFFVIS ---
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 Accompanied by: Self / Same As Patient Allergies codeine [Codeine] Allergy (Unknown, Verified 12/26/22 20:07) NAUSEA AND VOMITING, nausea pregabalin Allergy (Unknown, Verified 12/26/22 20:07) Confusion rosuvastatin [Crestor] Allergy (Unknown, Verified 12/26/22 20:07) joint pain NSAIDS (Non-Steroidal Anti-Inflamma Allergy (Verified 12/26/22 20:07) Swelling oxycodone [From OxyContin] Allergy (Verified 12/26/22 20:07) Itching [place] Insulin Allergy (Unknown, Uncoded 12/26/22 20:07) severe itching tapes, adhesives, tegaderm, st Allergy (Unknown, Uncoded 12/26/22 20:07) rash wellbutrin Allergy (Unknown, Uncoded 12/26/22 20:07) rash lexapro Adverse Reaction (Severe, Uncoded 12/26/22 20:07) lethargic Medication List - Last Reconciled 12/26/22 by GWENDOLYN Noel-GISELLE acetaminophen ER (Tylenol Arthritis Pain) 650 mg PO Q8H aspirin (Adult Aspirin Regimen) 81 mg PO DAILY biotin 1 mg PO DAILY blood sugar diagnostic (OneTouch Ultra Test strips) check BS 2-3x/day blood sugar diagnostic (OneTouch Ultra Test strips) As directed diclofenac sodium 50 mg PO BID fluoxetine 20 mg PO DAILY gabapentin 400 mg PO TID 30 days hydrocortisone 2.5% [address] BID-TID PRN hydroxyzine HCl 25 - 50 mg PO insulin glargine (Basaglar KwikPen U-100 Insulin) 50 units (0.5 mL) subcut QAM levocetirizine (Xyzal) 5 mg PO DAILY levothyroxine 125 mcg PO DAILY 90 days lorazepam 0.5 mg PO TID magnesium oxide 400 mg PO DAILY omega 4-onr-lha-fish oil 1,000 mg (120 mg-180 mg) (Fish Oil) 1 cap PO DAILY omeprazole 40 mg PO DAILY simvastatin 40 mg PO BEDTIME zinc oxide 12% (Mickey Protect (zinc oxide)) 1 appl topical QID PRN 10 days HPI HPI Comments History of Present Illness Details Lizzette is a pleasant 72-year-old female patient of Dr. Meza. She has a past medical history of vitamin-D deficiency, hypertension, hyperlipidemia, cervical spondylitis, depression, OCD, degenerative joint disease, fibromyalgia, GERD, neuropathy, and diabetes. She presents to the office today for a follow up. Of note, patient was seen approximately 6 months ago as a new patient for nephrolithiasis at which time a renal ultrasound was ordered for further assessment evaluation. These results were reviewed with the patient today. Right kidney with benign-appearing renal cyst and likely benign renal cyst measuring up to 2.2 cm. No follow-up imaging recommended per radiology report. A 3 mm nonobstructing upper pole renal stone is present previously measuring approximately 5 mm. No hydronephrosis noted. Left kidney with no hydronephrosis. Benign-appearing renal cyst and likely measuring up to 4.2 cm No follow-up imaging recommended. When asked she denies urinary urgency, urinary frequency, incontinence, hematuria, dysuria, foul smelling urine, changes to urinary stream, flank pain, fever, and or chills. She denies any bothersome urinary issues or concerns at this time. She does report episodes of double voiding. PVR 45mls. Discussed at length potential causes of nephrolothiasis and renal cyst. When asked she does report noting decrease in water intake lately. However, discusses attempting to improve in doing so. She otherwise offers no other issues or concerns at this time. [facility] Medical History Confusion Skin rash Vitamin D deficiency HTN (hypertension) HLD (hyperlipidemia) Cellulitis of leg, left Skin excoriation Urinary urgency Encounter to establish care Arthralgia of shoulder region, left Cervical spondylitis with radiculitis Myofascial pain on left side Depression OCD (obsessive compulsive disorder) DJD (degenerative joint disease) SI (sacroiliac) joint dysfunction Fibromyalgia GERD (gastroesophageal reflux disease) Neuropathy Diabetes Surgical History History of surgery Family History Father No problems noted. Mother No problems noted. Social History Housing: House Alcohol intake: former Patient Tobacco Use Status: Never used Tobacco Tobacco use type: Cigarette e-Cigarette/Vaping Use: Never Used Second Hand Smoke Exposure: No service: No Current occupational status: retired Cognitive needs: Yes (cane) Hearing needs: Yes (hearing aide) Vision needs: Yes (glasses) Review of Systems Eyes Reports no additional complaints ENT Details: patient with hearing impairment Card Reports as per [facility] GI Reports as per [facility] Reports as per [facility] Musc Reports as per HPI Neuro Reports as per HPI Psych Reports as per HPI Physical Exam Const General: cooperative, comfortable, no acute distress, well developed, alert and awake Orientation/consciousness: patient oriented x3 Limitations: ambulation with cane HEENT Other: Bilateral hearing aids Head: Yes normal to inspection, Yes normocephalic and Yes atraumatic Ears: hearing grossly normal bilaterally Eyes General: appearance normal, both eyes and all related structures Neck Neck: Yes normal visual inspection and Yes trachea midline Chest Chest palpation & inspection: normal inspection of the chest Resp Effort & Inspection: normal respiratory effort and able to speak in complete sentences Cardio Rate: regular rate GI Inspection: Yes normal to inspection General: Yes no CVA tenderness Back/Spine/Pelvis Back: no CVA tenderness Skin General skin exam: no rashes or lesions noted Neuro General: patient oriented x3 Extrem General: Yes normal to inspection Psych Appearance: grossly normal and well kempt Mental Status: mental status grossly normal Speech and movement: Normal speech and movement present and Clear speech present Affect: normal affect Attitude: cooperative Thought process: Normal thought process present Thought content: Normal thought content present Insight: Good insight present (Psych) Judgement: Good judgement present (Psych) Results AMB Urinalysis, Automated UA Leukoctes 0 Margareth/uL Last Edit by Manjula Machado on 12/26/22 13:28 UA Nitrite Negative Last Edit by Manjula Machado on 12/26/22 13:28 UA Urobilinogen 0.2 mg/dL Last Edit by Manjula Machado on 12/26/22 13:28 UA Protein 15 mg/dL Last Edit by Manjula Machado on 12/26/22 13:28 UA pH 6.0 Last Edit by Manjula Machado on 12/26/22 13:28 UA Blood 0 Cleve/uL Last Edit by Manjula Machado on 12/26/22 13:28 UA Specific [place] 1.025 Last Edit by Manjula Machado on 12/26/22 13:28 UA Ketone Negative Last Edit by Manjula Machado on 12/26/22 13:28 UA Bilirubin 1 mg/dL Last Edit by Manjula Machado on 12/26/22 13:28 UA Glucose 0 mg/dL Last Edit by Manjula Machado on 12/26/22 13:28 Results Reviewed Results Reviewed: Laboratory Last Values Urine pH (Auto) 6.0 12/26/22 13:22 Specific [place] (Auto) 1.025 12/26/22 13:22 Urine Protein (Auto) 15 mg/dL 12/26/22 13:22 Glucose (UA)(Auto) 0 mg/dL 12/26/22 13:22 Urine Ketones (Auto) Negative 12/26/22 13:22 Urine Blood (Auto) 0 Cleve/uL 12/26/22 13:22 Urine Nitrite (Auto) Negative 12/26/22 13:22 Urine Bilirubin (Auto) 1 mg/dL 12/26/22 13:22 Urine Urobilinogen (Auto) 0.2 mg/dL 12/26/22 13:22 Leukocyte Esterase (Auto) 0 Margareth/uL 12/26/22 13:22 Date of Service: 12/12/22 EXAMINATION: US RETROPERITONEAL LIMITED (RENAL ONLY) FINDINGS: RIGHT KIDNEY: 9.8 x 3.8 x 5.4 cm (SAG x AP x TRV). The kidney is normal in size, contour, and echogenicity. Renal cortical thickness is normal. No hydronephrosis. Benign-appearing renal cysts and likely benign renal cysts measuring up to 2.2 cm. No follow-up imaging recommended. 3 mm nonobstructing upper pole renal stone, previously 5 mm. LEFT KIDNEY: 9.3 x 4.6 x 4.8 cm (SAG x AP x TRV). The kidney is normal in size, contour, and echogenicity. Renal cortical thickness is normal. No renal calculi or hydronephrosis. Benign-appearing renal cysts and likely benign renal cysts measuring up to 4.2 cm. No follow-up imaging recommended. IMPRESSION: 3 mm nonobstructing right upper pole renal stone, previously 5 mm. No hydronephrosis. Assessment & Plan Assessment & Plan (1) Renal cyst: Code(s): N28.1 - Cyst of kidney, acquired (2) Renal stone: Code(s): N20.0 - Calculus of kidney Plan In office urinalysis results reviewed with the patient today; as noted above. Recent renal imaging results reviewed with the patient today. Patient denies any bothersome urinary issues or concerns at this time. Start vitamin B6 as discussed and prescribed. Continue adding 1 oz of lemon juice to water daily. Discussed, educated, encouraged on the importance of drinking plenty of water daily. Follow-up in 1 year with imaging to be completed prior; or sooner with any issues, concerns, and or questions. Orders: Orders AMB Urinalysis Automated Today Z13.9 - Encounter for screening, unspecified US retroperitoneal comp 364 Days N20.0 - Calculus of kidney, N28.1 - Cyst of kidney, acquired, R39.14 - Feeling of incomplete bladder emptying Medications: New pyridoxine (vitamin B6) 100 mg PO DAILY 90 days 90 tabs 3RF N20.0 - Calculus of kidney Patient Instructions: The patient had an opportunity to ask questions regarding the treatment plan. All questions were answered. Physical exam, labs, and imaging were discussed and reviewed in detail. As well as risks, benefits, and discussion of treatment choices. No major barriers to understanding were identified. The patient expressed understanding and agreement with the above treatment plan. The patient was made aware they should contact our office by phone for worsening of their current condition, the appearance of new symptoms, or with any questions or concerns. Compliance is encouraged with any medications and follow up testing that is ordered. It is a privilege to be allowed the opportunity to participate in? your urological care.? Again, if you have any questions or concerns If you have any questions or concerns please do not hesitate to contact me. The office is [phone]. This note is constructed using voice recognition software. While every effort has been made to ensure accuracy oracle application architect errors may have been included. Yours sincerely, ANGELINA Noel Coding Level of Care Code Est Pt Level 4 (51973) Diagnoses Renal cyst N28.1 Renal stone N20.0
== END 2022-12-26 14:04 | disposition home or self-care (01) ==
PROVIDERS: PCP Nurse Practitioner Family; Visit Provider Nurse Practitioner Family
DX: N28.1 Cyst of kidney, acquired (principal); N20.0 Calculus of kidney
CPT/HCPCS: 99214

== ENCOUNTER → 2022-12-26 13:07 | Outpatient (BNVA) | payer MEDICARE, OTHER, SELFPAY | PROVIDERS: Visit Provider Nurse Practitioner Family | DX: N20.0 Calculus of kidney (principal); N28.1 Cyst of kidney, acquired | CPT/HCPCS: 81003; 99212 ==

== ENCOUNTER 2022-12-27 13:14 | Outpatient (AMB) | payer MEDICARE, OTHER, SELFPAY ==
[2022-12-27 13:16] VITALS: BP 136/80; PULSE 62; O2SAT 97; BMI 30.4
--- NOTE | 2022-12-27 13:16 | A.OFFPC_ITS ---
Vital Signs 12/27/22 13:16 Height 5 ft 1 in Weight 161 lb 0.8 oz BMI 30.4 BP 136/80 Blood Pressure Location Lt brachial Position Sitting Pulse 62 Pulse Source Pulse Oximeter Temp Source Skin Pulse Oximetry (%) 97 Oxygen Delivery Method Room Air Intake Visit Reasons: PE Intake Note: Patient is here today for a physical. Allergies codeine [Codeine] Allergy (Unknown, Verified 12/27/22 13:36) NAUSEA AND VOMITING, nausea pregabalin Allergy (Unknown, Verified 12/27/22 13:36) Confusion rosuvastatin [Crestor] Allergy (Unknown, Verified 12/27/22 13:36) joint pain NSAIDS (Non-Steroidal Anti-Inflamma Allergy (Verified 12/27/22 13:36) Swelling oxycodone [From OxyContin] Allergy (Verified 12/27/22 13:36) Itching [place] Insulin Allergy (Unknown, Uncoded 12/27/22 13:36) severe itching tapes, adhesives, tegaderm, st Allergy (Unknown, Uncoded 12/27/22 13:36) rash wellbutrin Allergy (Unknown, Uncoded 12/27/22 13:36) rash lexapro Adverse Reaction (Severe, Uncoded 12/27/22 13:36) lethargic Medication List - Last Reconciled 12/27/22 by GWENDOLYN Pichardo acetaminophen ER (Tylenol Arthritis Pain) 650 mg PO Q8H aspirin (Adult Aspirin Regimen) 81 mg PO DAILY biotin 1 mg PO DAILY blood sugar diagnostic (OneTouch Ultra Test strips) check BS 2-3x/day blood sugar diagnostic (OneTouch Ultra Test strips) As directed diclofenac sodium 50 mg PO BID fluoxetine 30 mg PO DAILY gabapentin 400 mg PO TID 30 days hydrocortisone 2.5% 1 appl ND BID-TID PRN hydroxyzine HCl 25 - 50 mg PO insulin glargine (Basaglar KwikPen U-100 Insulin) 45 units subcut QAM levocetirizine (Xyzal) 5 mg PO DAILY levothyroxine 125 mcg PO DAILY 90 days lorazepam 0.5 mg PO TID magnesium oxide 400 mg PO DAILY omega 0-gvo-btb-fish oil 1,000 mg (120 mg-180 mg) (Fish Oil) 1 cap PO DAILY omeprazole 40 mg PO DAILY pyridoxine (vitamin B6) 100 mg PO DAILY 90 days simvastatin 40 mg PO BEDTIME zinc oxide 12% (Mickey Protect (zinc oxide)) 1 appl topical QID PRN 10 days Tobacco use date assessed: 12/27/22 Fall risk assessment: No Falls in past year Last assessed Fall Risk: 12/27/22 Dental Screening Dental Screen Date: 12/27/22 Did you have a dental visit in the last 12 months?: Yes Did you have a dental problem in the last 6 months where you did not have access to dental care?: No Was dental information given to patient?: Patient has dentist HPI PE HPI Details Patient is a 72-year-old female who presents today for physical exam.? Medical history significant for hypertension, hyperlipidemia, fibromyalgia, OCD - followed by Psychiatry, depression, GERD, and diabetes type 2 among others.? Patient is compliant with medications and denies side effects.? She is followed by Psychiatry Dr. Le who prescribes mental health medication.? Patient reports blood sugars at home running between 75 and 132 and she has decreased insulin glargine to 45 units couple months ago.? Patient ambulates with a cane.? Patient denies shortness of breath or chest pain.? Recent blood work results were reviewed with the patient. Patient reports that her next colonoscopy is due at age 77, she reports last colonoscopy was done by Dr. Aceves which was normal, will request records. Mammogram 06/2022 which was done at [facility]. Today we discussed patient's need for bone density screening. Patient reports pneumonia vaccine after age 65. Patient reports tetanus vaccine within 10 years. Patient reports that about 1 month ago she was discharged from [facility] and she was on psych unit, patient reports that her mental is stable now, followed by Psychiatry. Patient lives with her . ? [facility] Medical History Confusion Skin rash Vitamin D deficiency HTN (hypertension) HLD (hyperlipidemia) Cellulitis of leg, left Skin excoriation Urinary urgency Encounter to establish care Arthralgia of shoulder region, left Cervical spondylitis with radiculitis Myofascial pain on left side Depression OCD (obsessive compulsive disorder) DJD (degenerative joint disease) SI (sacroiliac) joint dysfunction Fibromyalgia GERD (gastroesophageal reflux disease) Neuropathy Diabetes Surgical History History of surgery Family History Father No problems noted. Mother No problems noted. Social History Housing: House Alcohol intake: former Patient Tobacco Use Status: Never used Tobacco Tobacco use type: Cigarette e-Cigarette/Vaping Use: Never Used Second Hand Smoke Exposure: No service: No Current occupational status: retired Cognitive needs: Yes (cane) Hearing needs: Yes (hearing aide) Vision needs: Yes (glasses) Questionnaire PHQ-9 Over the last 2 weeks, how often have you been bothered by any of the following problems? 1. Little interest or pleasure in doing things: not at all 2. Feeling down, depressed, or hopeless: not at all 3. Trouble falling or staying asleep, or sleeping too much: not at all 4. Feeling tired or having little energy: not at all 5. Poor appetite or overeating: not at all 6. Feeling bad about yourself - or that you are a failure or have let yourself or your family down: not at all 7. Trouble concentrating on things, such as reading the newspaper or watching television: not at all 8. Moving or speaking so slowly that other people could have noticed. Or the opposite - being so fidgety or restless that you have been moving around a lot more than usual: not at all 9. Thoughts that you would be better off or of hurting yourself in some way: not at all Total score: 0 Depression Screening Interpretation: Negative 59085 - PHQ-9 Billing: Yes Source: Developed by Drs. Frank Rosario, Patsy Khan, Kenney Grimm and colleagues, with an educational kev from [employer]. Thrive Questionnaire Date Thrive assessed: 06/28/22 AUDIT C Alcohol Use Questionnaire (AUDIT-C) 1. How often do you have a drink containing alcohol?: Never 3. How often do you have six or more drinks on one occasion?: Never Total Score: 0 Score Reviewed/Action Taken: No CATIE-7 AMB Questionnaire CATIE-7 Date CATIE - 7 assessed: 12/27/22 Feeling nervous, anxious, or on edge: 0 = Not at all Not being able to stop or control worryin = Not at all Worrying too much about different things: 0 = Not at all Trouble relaxin = Not at all Being so restless that it is hard to sit still: 0 = Not at all Becoming easily annoyed or irritable: 0 = Not at all Feeling afraid as if something awful might happen: 0 = Not at all Total CATIE-7 score (0-4 normal; 5-9 mild; 10-14 moderate; 15-21 severe): 0 Source: Developed by Drs. Frank Rosario, Patsy Khan, Kenney Grimm and colleagues, with an educational kev from [employer]. CATIE-7 Assessment Billing CATIE-7 Assessment Tool: CATIE-7 Assessment 34841 Review of Systems Const Denies body aches, Denies chills, Denies fever(s) and Denies headache(s) Eyes Denies change in vision ENT Denies dizziness, Denies otalgia, Denies headache(s), Denies nasal discharge, Denies sinus pain and Denies sore throat Card Denies chest pain, Denies edema, Denies lightheadedness and Denies dyspnea Resp Denies cough and Denies dyspnea GI Denies constipation, Denies diarrhea, Denies nausea and Denies vomiting Denies dysuria Musc Denies myalgias Skin/Breast Denies lesions and Denies rash Neuro Denies dizziness and Denies headache(s) Physical exam (Primary Care) Vital Signs: Last Vital Signs Pulse 62 12/27/22 13:16 BP 136/80 12/27/22 13:16 Pulse Ox 97 12/27/22 13:16 Oxygen Delivery Method Room Air 12/27/22 13:16 BMI result Body Mass Index 30.4 Tobacco/Smoking Status: Tobacco use Status Tobacco use date assessed 12/27/22 12/27/22 13:18 Patient Tobacco Use Status Never used Tobacco 12/27/22 13:18 Tobacco use type Cigarette 12/27/22 13:18 e-Cigarette/Vaping Use Never Used 12/27/22 13:18 PHQ-9: PHQ-9 Score PHQ-9: Total score 0 12/27/22 13:18 Depression Screening Interpretation: Negative Thrive Assessment: Date of Thrive Assessment Date Thrive assessed 06/28/22 12/27/22 13:18 Const General: cooperative and no acute distress Orientation/consciousness: patient oriented x3 HENMT Head: Yes normocephalic and Yes atraumatic Ears: TM's normal bilaterally Face and sinus: Yes sinuses nontender Mouth: oropharynx normal and moist mucous membranes Throat: Yes posterior oropharynx normal Eyes General: appearance normal, both eyes and all related structures Pupils: Equal, round and reactive pupils present EOM: EOMs intact bilaterally Neck Neck: Yes normal visual inspection, Yes full ROM and Yes no lymphadenopathy Thyroid: Thyroid normal Resp Effort & Inspection: normal respiratory effort and able to speak in complete sentences Auscultation: clear to auscultation bilaterally, no crackles, no rales, no rhonchi and no wheezes Cardio Rate: regular rate Rhythm: regular rhythm Heart sounds: S1 normal heart sound present, S2 normal heart sound present and no murmurs GI Palpation (GI): not soft, not firm, nontender, no guarding and no hepatosplenomegaly Auscultation: normal bowel sounds General: Yes no CVA tenderness Back/Spine/Pelvis Back: no CVA tenderness Skin General skin exam: no rashes or lesions noted Neuro General: patient oriented x3 Cranial nerves: Yes Equal, round and reactive pupils present Gait exam (Neuro): Normal gait present Extrem Other: Trace edema to bilateral lower extremity noted General: Yes full ROM Assessment and Plan Assessment & Plan (1) Type II diabetes mellitus: Code(s): E11.9 - Type 2 diabetes mellitus without complications Qualifiers: Diabetes mellitus intermediate insulin use: with intermediate use Plan: A1c 5.5 12/2022 Continue insulin glargine 45 units in the morning Low-carbohydrate diet Patient reports normal diabetic eye exam with Dr. Terry 09/2022 (2) Depression: Code(s): F32.9 - Major depressive disorder, single episode, unspecified Qualifiers: Depression Type: other depression Qualified Code(s): F32.89 - Other specified depressive episodes Plan: Continue to follow-up with Dr. Le, psychiatrist.? (3) Fibromyalgia: Code(s): M79.7 - Fibromyalgia Plan: Continue gabapentin 400 mg t.i.d. Continue Tylenol 650 mg every 8 hours p.r.n. Continue diclofenac 50 mg b.i.d. p.r.n.-educated patient not to take this medication all the time (4) HTN (hypertension): Code(s): I10 - Essential (primary) hypertension Plan: Stable Goal BP equal or less than 140/90 Low-sodium diet and exercise as tolerated (5) HLD (hyperlipidemia): Code(s): E78.5 - Hyperlipidemia, unspecified Plan: LDL 83 12/2022 Simvastatin 40 mg at bedtime Low-cholesterol diet (6) GERD (gastroesophageal reflux disease): Code(s): K21.9 - Gastro-esophageal reflux disease without esophagitis Plan: Omeprazole 40 mg daily Avoid GERD trigger foods Do not lay down 2-3 hours after evening meal (7) Obesity (BMI 30-39.9): Code(s): E66.9 - Obesity, unspecified Plan: Healthy food choices and exercise as tolerated (8) Hypothyroidism: Code(s): E03.9 - Hypothyroidism, unspecified Plan: Continue levothyroxine 125 mcg daily (9) Post-menopausal: Code(s): Z78.0 - Asymptomatic menopausal state (10) Physical exam: Comment: F/U's with Dr. Aceves. She was told next one is at age 77 yo, if needed. PNA IZ after age 65 and Tetanus IZ within 10 years per pt. Code(s): Z00.00 - Encounter for general adult medical examination without abnormal findings Plan Follow-up in 3 months or sooner as needed Orders: Orders Lipid Panel 3 Months E78.5 - Hyperlipidemia, unspecified Comprehensive [place]. Panel Fast 3 Months E11.9 - Type 2 diabetes mellitus without complications XR DEXA axial skeleton Today Z78.0 - Asymptomatic menopausal state TSH reflex Free T4 3 Months I10 - Essential (primary) hypertension Hemoglobin A1c 3 Months E11.9 - Type 2 diabetes mellitus without complications Medications: Changed From insulin glargine (Basaglar KwikPen U-100 Insulin) 50 units (0.5 mL) subcut QAM 15 mL 3RF E11.9 - Type 2 diabetes mellitus without complications To insulin glargine (Basaglar KwikPen U-100 Insulin) 45 units subcut QAM E11.9 - Type 2 diabetes mellitus without complications Coding Level of Care Code Est Pt Prev Care >65y(69212) Diagnoses Type II diabetes mellitus E11.9 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
== END 2022-12-27 13:59 | disposition home or self-care (01) ==
PROVIDERS: PCP Physician Assistant; Visit Provider Nurse Practitioner Family
DX: Z00.00 Encounter for general adult medical examination without abnormal findings (principal); E11.9 Type 2 diabetes mellitus without complications; K21.9 Gastro-esophageal reflux disease without esophagitis; I10 Essential (primary) hypertension; E03.9 Hypothyroidism, unspecified; F32.89 Other specified depressive episodes; M79.7 Fibromyalgia; E78.5 Hyperlipidemia, unspecified; E66.9 Obesity, unspecified; Z78.0 Asymptomatic menopausal state
CPT/HCPCS: 99397

== ENCOUNTER 2023-01-10 15:16 | Outpatient (REF) | payer SELFPAY ==
--- NOTE | 2023-01-11 08:14 | MHC.AU.HA3 ---
Hearing Instrument Follow-Up- Binaural Date of Visit: 01/10/23 Right Ear: Make, Model, Color, Serial Number: Federica Mercer [id number] SN: [id number] Color: Silver Sharpe [employer] Reporting Accountant Repair Warranty: 11/19/2023 Financial Reporting Accountant Loss and Damage Warranty: 11/19/2023 [facility] Service Plan: 11/19/2023 Battery Size: 13 Regular Senior Care Provider/Slim Tube: #2 UP Earmold/Dome/CShell/SlimTip:Skeleton c-shell SN: [id number] Zoey: 12/20/2020 Type of Wax Guard: CeruStop Dispensed By: [facility] Date of Fittin09/04/2020 Left Ear: Make, Model, Color, Serial Number: Federica Mercer [id number] SN: [id number] Color: Silver Sharpe Financial Reporting Accountant Repair Warranty: 11/19/2023 Financial Reporting Accountant Loss and Damage Warranty: 11/19/2023 [facility] Service Plan: 11/19/2023 Battery Size: 13 Regular Senior Care Provider/Slim Tube: #2 UP Earmold/Dome/CShell/SlimTip: Skeleton c-shell SN: [id number] Zoey: 09/06/2022 Type of Wax Guard: CeruStop Dispensed By: [facility] Date of Fittin09/04/2020 Follow-Up Summary: The wax guard system on Lizzette's right c-shell is broken. Her hearing aid reportedly stopped working at an acupuncture appointment. She did not have any wax guards with her so she tried removing the wax guard with a needle. She ended up pushing the wax guard into the mold and damaging the entire wax guard system. Multiple wax guards noted inside c-shell. Wax guard system recessed into mold and will not hold onto new wax guard. Quoted $185.00 for new c-shell. Lizzette approved and requested same impression be used as the mold otherwise fits well. She reported her left mold continuously moves in her ear and does not have a secure fit. However, she did not want to purchase two new molds at this time due to financial concerns. Cleaned the left hearing aid and cleaned and retubed her old BTE hearing aids that she is using as back up. Right hearing aid and c-shell in repair drawer. Recommendations: Patient will be contacted when materials have arrived. Recommendations (Other): Once new c-shell has arrived, it can be put on the right hearing aid (in repair drawer) and Lizzette can pick it up. No appointment necessary. She will owe $185.00 at parts picker. Diagnosis Code(s): Primary Diagnosis: H90.3 Bilateral Sensorineural Hearing Loss Signature: Provider: Sallie Mehta, [facility]
== END 2023-01-10 15:17 | disposition home or self-care (01) ==
LOC: HO.HAP 15:16
PROVIDERS: Visit Provider Nurse Practitioner Family
DX: Z13.89 Encounter for screening for other disorder (principal)
CPT/HCPCS: V5267

== ENCOUNTER 2023-01-10 16:14 | Outpatient (REF) | payer SELFPAY | END 2023-01-10 16:15 | disposition home or self-care (01) | LOC: HO.HAP 16:14 | PROVIDERS: Visit Provider Nurse Practitioner Family | DX: H90.3 Sensorineural hearing loss, bilateral (principal); Z46.1 Encounter for fitting and adjustment of hearing aid | CPT/HCPCS: V5267 ==

== ENCOUNTER 2023-01-21 10:29 | Outpatient (AMB) | payer MEDICARE, OTHER, SELFPAY ==
--- NOTE | 2023-01-21 10:36 | MHC.OFFWIV ---
Intake Vital Signs 01/21/23 10:37 Height 5 ft 1 in Weight 72.121 kg BMI 30.0 BP 110/70 Blood Pressure Location Lt brachial Position Sitting Pulse 83 Pulse Source Pulse Oximeter Temp 98.3 F Temp Source Oral Pulse Oximetry (%) 96 Oxygen Delivery Method Room Air Intake Visit Reasons: EP, sore throat, chest congestion (masked) Intake Note: Pt is here today c/o S/T and chest congestion x1week Patient Tobacco Use Status: Never used Tobacco Allergies codeine [Codeine] Allergy (Unknown, Verified 01/21/23 10:36) NAUSEA AND VOMITING, nausea pregabalin Allergy (Unknown, Verified 01/21/23 10:36) Confusion rosuvastatin [Crestor] Allergy (Unknown, Verified 01/21/23 10:36) joint pain NSAIDS (Non-Steroidal Anti-Inflamma Allergy (Verified 01/21/23 10:36) Swelling oxycodone [From OxyContin] Allergy (Verified 01/21/23 10:36) Itching [place] Insulin Allergy (Unknown, Uncoded 01/21/23 10:36) severe itching tapes, adhesives, tegaderm, st Allergy (Unknown, Uncoded 01/21/23 10:36) rash wellbutrin Allergy (Unknown, Uncoded 01/21/23 10:36) rash lexapro Adverse Reaction (Severe, Uncoded 01/21/23 10:36) lethargic Do you need a note to return to daycare/school/sports/work: No HPI HPI Comments History of Present Illness Details 1043 This is a 72-year-old female presenting fatigue, malaise, sore throat, myalgias, chest congestion/pressure . Reporting she just feels tired and like something is not right. Feeling anxious lately and overwhelmed and at times when this happenes she becomes more aware of chest congestion/pressure. No SI or HI. Denies shortness of breath, fevers, chills, nausea, vomiting, diarrhea, headache, vision changes, dizziness, weakness. Eating drinking well. Physical examination benign Concerns for strep throat versus bronchitis due to length of symptoms. Unlikely pneumonia, epiglottitis, peritonsillar retropharyngeal abscess, no signs of threat airway. No signs of acute respiratory distress. Unlikely PE. CP likley from viral ilness or anxiety unlikely acs EKG-Ventricular rate of 75 pr normal qrs normal QT/QTc slightly prolongued no TYE or invesions concerning for ischemia Plan was discharged home on Augmentin. Educated patient on diagnosis and treatment plan, answered all question, patient verbalizes understanding. At this time patient will be discharged home, advised to return with new or worsening symptoms. Educated on worrisome signs and symptoms and when to return. At this time I feel comfortable discharge home. [facility] Medical History Confusion Skin rash Vitamin D deficiency HTN (hypertension) HLD (hyperlipidemia) Cellulitis of leg, left Skin excoriation Urinary urgency Encounter to establish care Arthralgia of shoulder region, left Cervical spondylitis with radiculitis Myofascial pain on left side Depression OCD (obsessive compulsive disorder) DJD (degenerative joint disease) SI (sacroiliac) joint dysfunction Fibromyalgia GERD (gastroesophageal reflux disease) Neuropathy Diabetes Surgical History History of surgery Family History Father No problems noted. Mother No problems noted. Social History Housing: House Alcohol intake: former Patient Tobacco Use Status: Never used Tobacco Tobacco use type: Cigarette e-Cigarette/Vaping Use: Never Used Second Hand Smoke Exposure: No service: No Current occupational status: retired Cognitive needs: Yes (cane) Hearing needs: Yes (hearing aide) Vision needs: Yes (glasses) Review of Systems Const Details: Constitutional : No Weight loss, No Fever, No Chills, + Fatigue, + Malaise ENT/Mouth : + sore throat, No Rhinorrhea, + congestion Eyes: No Eye Pain, No Swelling, No Redness Cardiovascular : No Chest Pain, No SOB, No Dyspnea on Exertion, No Orthopnea, No Edema, No Palpitations Respiratory : No Cough, No Sputum, No Wheezing Gastrointestinal : No Nausea, No Vomiting, No Diarrhea, No Constipation, No abdominal Pain, No Hematochezia, No Melena Genitourinary : No Dysuria, No Urinary Frequency, No Hematuria, Musculoskeletal : No joint pain, No Myalgias, No Joint Swelling Skin : No Skin Lesions, No rash Neuro : No Weakness, No Numbness, No Dizziness, No Headache Psych : No Anxiety/Panic, No Depression All other systems reviewed and are negative All systems reviewed & are unremarkable except as noted in HPI and below Physical Exam Vital Signs: Last Vital Signs Temp 98.3 F 01/21/23 10:37 Pulse 83 01/21/23 10:37 BP 110/70 01/21/23 10:37 Pulse Ox 96 01/21/23 10:37 Oxygen Delivery Method Room Air 01/21/23 10:37 BMI result Body Mass Index 30.0 vss Appearance: Alert.? Oriented X3.? No acute distress.?Anxious appearing Head: Normocephalic, atraumatic, no step-offs or deformities Eyes: Pupils equal, round and reactive to light.? ENT: Pharynx normal.? Uvula midline. Bilateral tonsils within normal limits, no erythema, edema, exudate or abscess noted Neck: Normal inspection.? Neck supple.? CVS: Normal heart rate and rhythm.? Pulses normal.? Respiratory: No respiratory distress.? Breath sounds normal.? Abdomen: Soft and nontender.? Skin: Skin warm and dry.? Normal skin color.? Normal skin turgor.? Extremities: No lower extremity edema.? No calf ttp. 5/5 strength to bilateral upper and lower extremities Neuro: Oriented X 3.? No motor deficit.? No sensory deficit. CN 2-12 intact Results AMB Rapid Strep AMB Rapid Strep Negative Last Edit by Kim Aranda CMA on 01/21/23 10:44 Results Reviewed Results Reviewed: Laboratory Last Values Strep Scn [facility] Clinic Negative 01/21/23 10:43 Assessment & Plan Assessment & Plan (1) Pharyngitis: Code(s): J02.9 - Acute pharyngitis, unspecified (2) Chest congestion: Code(s): R09.89 - Other specified symptoms and signs involving the circulatory and respiratory systems Plan Take your medications as prescribed. If you were prescribed antibiotics today, it is important that you take your medication to their entirety, do not skip any doses, do not finish them early. Follow-up with your primary care provider this week. Return to the emergency department with new or worsening symptoms. Such as fevers, chills, chest pain, shortness of breath, nausea, vomiting, dizziness, headache, vision changes, lethargy In case of emergency call 911 Orders: Orders AMB Rapid Strep Screen Today Z13.9 - Encounter for screening, unspecified Medications: New amoxicillin-pot clavulanate 875-125 mg 1 tab PO BID 20 tabs 0RF 10 days Coding Level of Care Code Est Pt Level 3 (79807) Diagnoses Pharyngitis J02.9 Chest congestion R09.89
[2023-01-21 10:37] VITALS: BP 110/70; PULSE 83; TEMP 36.8; O2SAT 96
== END 2023-01-21 14:57 | disposition home or self-care (01) ==
PROVIDERS: PCP Nurse Practitioner Family; Visit Provider Physician Assistant
DX: J02.9 Acute pharyngitis, unspecified (principal); R09.89 Other specified symptoms and signs involving the circulatory and respiratory systems
CPT/HCPCS: 87880; 93000; 99213

== ENCOUNTER 2023-01-26 16:22 | Outpatient (REF) | payer SELFPAY | END 2023-01-26 16:23 | disposition home or self-care (01) | LOC: HO.HAP 16:22 | PROVIDERS: Visit Provider Nurse Practitioner Family | DX: Z46.1 Encounter for fitting and adjustment of hearing aid (principal) | CPT/HCPCS: 92700; V5264 ==

== ENCOUNTER 2023-01-26 16:30 | Outpatient (REF) | payer MEDICARE, OTHER, SELFPAY ==
[2023-01-26 17:36] LABS: Folate 15.9 ng/mL (> or = 4.0); Vitamin B12 380 pg/mL (200-900)
== END 2023-01-26 16:31 | disposition home or self-care (01) ==
LOC: HO.LAB 16:30
PROVIDERS: PCP Nurse Practitioner Family; Visit Provider Nurse Practitioner Family
DX: M79.7 Fibromyalgia (principal); E11.9 Type 2 diabetes mellitus without complications; I10 Essential (primary) hypertension
CPT/HCPCS: 36415; 82607; 82746

== ENCOUNTER 2023-02-08 14:57 | Outpatient (REF) | payer SELFPAY ==
--- NOTE | 2023-02-08 16:09 | MHC.AU.HA3 ---
Hearing Instrument Follow-Up- Binaural Date of Visit: 02/08/23 Right Ear: Make, Model, Color, Serial Number: Federica Mercer [id number] SN: [id number] Color: Silver Sharpe Farm Contractor Buyer Repair Warranty: 11/19/2023 Farm Contractor Buyer Loss and Damage Warranty: 11/19/2023 [facility] Service Plan: 11/19/2023 Battery Size: 13 Strategic Buyer/Slim Tube: #2 UP Earmold/Dome/CShell/SlimTip:Skeleton c-shell SN: [id number] Zoey: 04/24/2023 Type of Wax Guard: CeruStop Dispensed By: [facility] Date of Fittin09/04/2020 Left Ear: Make, Model, Color, Serial Number: Federica Mercer [id number] SN: [id number] Color: Silver Sharpe Farm Contractor Buyer Repair Warranty: 11/19/2023 Farm Contractor Buyer Loss and Damage Warranty: 11/19/2023 [facility] Service Plan: 11/19/2023 Battery Size: 13 Strategic Buyer/Slim Tube: #2 UP Earmold/Dome/CShell/SlimTip: Skeleton c-shell SN: [id number] Zoey: 09/06/2022 Type of Wax Guard: CeruStop Dispensed By: [facility] Date of Fittin09/04/2020 Follow-Up Summary: Lizzette reported the new right c-shell does not fit properly in her ear. When she pushes in the canal portion of the mold, the skeleton portion pops out of her ear. This was observed in office. She also requested a new left earmold, as it is too loose and moves in her ear as well. Impressions were taken, bilaterally, without incident. Lizzette knows the left c-shell is out of warranty and will be an additional $185.00. The right c-shell can be remade under warranty. Sent the impressions as well as the right c-shell to [facility]. Lizzette opted to leave both of her hearing aids and left c-shell here (in repair drawer) so the new c-shells can be attached when they arrive and she is able to just pick them up instead of schedule an appointment. Advised once she picks them up, to call as soon as possible if issues with fit arise. Recommendations: Patient will be contacted when materials have arrived. Recommendations (Other): When c-shells arrive, they can be placed on hearing aids (in repair drawer) and Lizzette can be contacted to pick them up. The old left c-shell, which is currently on her left hearing aid, should be returned to Lizzette to keep as back up. She will owe $185.00 at garbage pick up worker for new left c-shell. Diagnosis Code(s): Primary Diagnosis: H90.3 Bilateral Sensorineural Hearing Loss Signature: Provider: Sallie Mehta, CCC-A
== END 2023-02-08 14:58 | disposition home or self-care (01) ==
LOC: HO.HAP 14:57
PROVIDERS: Visit Provider Nurse Practitioner Family
DX: Z13.89 Encounter for screening for other disorder (principal)

== ENCOUNTER 2023-02-20 16:25 | Outpatient (REF) | payer SELFPAY ==
--- NOTE | 2023-02-21 08:14 | MHC.AU.HA3 ---
Hearing Instrument Follow-Up- Binaural Date of Visit: 02/21/23 Right Ear: Make, Model, Color, Serial Number: Federica Mercer [id number] SN: [id number] Color: Silver Sharpe Byproduct Engineer Repair Warranty: 11/19/2023 Byproduct Engineer Loss and Damage Warranty: 11/19/2023 [facility] Service Plan: 11/19/2023 Battery Size: 13 Industrial Hygenist/Slim Tube: #2 UP Earmold/Dome/CShell/SlimTip:Skeleton c-shell SN: [id number] Zoey: 04/24/2023 Type of Wax Guard: CeruStop Dispensed By: [facility] Date of Fittin09/04/2020 Left Ear: Make, Model, Color, Serial Number: Federica Mercer [id number] SN: [id number] Color: Silver Sharpe Byproduct Engineer Repair Warranty: 11/19/2023 Byproduct Engineer Loss and Damage Warranty: 11/19/2023 [facility] Service Plan: 11/19/2023 Battery Size: 13 Industrial Hygenist/Slim Tube: #2 UP Earmold/Dome/CShell/SlimTip: Skeleton c-shell SN: [id number] Zoey: 05/18/2023 OLD MOLD SN: [id number] Zoey: 09/06/2022 Type of Wax Guard: CeruStop Dispensed By: [facility] Date of Fittin09/04/2020 Follow-Up Summary: Lizzette arrived to sweet pickle maker her right remade c-shell and her new left c-shell. She did not have an appointment scheduled. However, Lizzette reported the left c-shell did not fit and insisted to see an service girl. The fit looked good. No feedback noted and Lizzette reported it did not feel loose. She did report that the skeleton portion was not touching the back of her ear. Lizzette reported that she would like a remake now so she does not miss the warranty period. Impression taken of the left ear without incident[facility]. The remade right c-shell fits comfortable per Lizzette. Lizzette is using her old left c-shell in the meantime. Will need an appointment once the left remake arrives to place on left hearing aid and ensure proper and comfortable fit. Recommendations: Patient will be contacted when materials have arrived. Diagnosis Code(s): Primary Diagnosis: H90.3 Bilateral Sensorineural Hearing Loss Signature: Provider: Sallie Mehta, [facility]
== END 2023-02-20 16:26 | disposition home or self-care (01) ==
LOC: HO.HAP 16:25
PROVIDERS: Visit Provider Nurse Practitioner Family
DX: Z46.1 Encounter for fitting and adjustment of hearing aid (principal); H90.3 Sensorineural hearing loss, bilateral
CPT/HCPCS: 92700; V5264

== ENCOUNTER 2023-02-23 14:47 | Emergency (ER) | payer MEDICARE, OTHER, SELFPAY ==
[2023-02-23 14:52] VITALS: BP 130/60; PULSE 58; RESP 20; TEMP 35.7; O2SAT 98; BMI 30.2
--- NOTE | 2023-02-23 14:52 | ED_ITS ---
HPI - General Adult General Chief complaint: General Medical Stated complaint: UTI Time Seen by Provider: 02/23/23 15:40 Source: patient Mode of arrival: ambulatory Limitations: no limitations History of Present Illness HPI narrative: 72-year-old female with history of diabetes mellitus, hypertension, hyperlipidemia, GERD, depression who presents emergency department for evaluation of urinary frequency. Patient states that over the past 2 days she has been urinating every 5 minutes. She denied dysuria and has not noted any blood in her urine. She denied abdominal pain. Patient also denied fever, chills, nausea, vomiting, diarrhea, change in her bowel movements. She states that 3 weeks prior she was having chest pain and diarrhea and her provider stop Prozac and this improved her symptoms resolved. Related Data Home Medications Medication Instructions Recorded Confirmed aspirin 81 mg tablet,delayed 81 mg PO DAILY 01/01/21 12/27/22 release (Adult Aspirin Regimen) lorazepam 0.5 mg tablet 0.5 mg PO TID 01/01/21 12/27/22 biotin 1 mg capsule 1 mg PO DAILY 05/17/21 12/27/22 omega 9-etn-sdx-fish oil 1,000 mg 1 cap PO DAILY 05/17/21 12/27/22 (120 mg-180 mg) capsule (Fish Oil) blood sugar diagnostic (OneTouch #10 ea 05/27/21 09/28/22 Ultra Test strips) levocetirizine 5 mg tablet (Xyzal) 5 mg PO DAILY 09/09/21 12/27/22 hydroxyzine HCl 25 mg tablet 25 - 50 mg PO 12/16/21 12/27/22 acetaminophen 650 mg 650 mg PO Q8H 03/22/22 12/27/22 tablet,extended release (Tylenol Arthritis Pain) fluoxetine 20 mg capsule 30 mg PO DAILY 12/27/22 12/27/22 Previous Rx's Medication Instructions Recorded hydrocortisone 2.5 % topical cream 1 appl ID BID-TID PRN hemorrhoids 09/09/21 with perineal applicator #30 grams zinc oxide 12 % topical cream 1 appl topical QID PRN skin 12/29/21 (Mickey Protect (zinc oxide)) irritation 10 days #142 grams blood sugar diagnostic (OneTouch #100 ea 07/14/22 Ultra Test strips) magnesium oxide 400 mg (241.3 mg 400 mg PO DAILY #30 tabs 07/24/22 magnesium) tablet levothyroxine 125 mcg tablet 125 mcg PO DAILY 90 days #90 tabs 11/23/22 omeprazole 40 mg capsule,delayed 40 mg PO DAILY #90 caps 12/12/22 release diclofenac sodium 50 mg 50 mg PO BID #180 tabs 12/16/22 tablet,delayed release pyridoxine (vitamin B6) 100 mg 100 mg PO DAILY 90 days #90 tabs 12/26/22 tablet gabapentin 400 mg capsule 400 mg PO TID 30 days #90 caps 12/30/22 simvastatin 40 mg tablet 40 mg PO BEDTIME #90 tabs 01/19/23 amoxicillin 875 mg-potassium 1 tab PO BID 10 days #20 tabs 01/21/23 clavulanate 125 mg tablet insulin glargine 100 unit/mL (3 45 unit (0.45 mL) subcut QAM #15 mL 02/15/23 mL) subcutaneous pen (Basaglar KwikPen U-100 Insulin) nitrofurantoin 100 mg PO Q12H 5 days #10 caps 02/23/23 monohydrate/macrocrystals 100 mg capsule (Macrobid) oxybutynin chloride 5 mg 5 mg PO DAILY 14 days #14 tabs 02/23/23 tablet,extended release 24 hr Allergies Allergy/AdvReac Type Severity Reaction Status Date / Time codeine [Codeine] Allergy Unknown NAUSEA AND Verified 02/23/23 14:56 VOMITING, nausea pregabalin Allergy Unknown Confusion Verified 02/23/23 14:56 rosuvastatin [Crestor] Allergy Unknown joint pain Verified 02/23/23 14:56 NSAIDS (Non-Steroidal Allergy Swelling Verified 02/23/23 14:56 Anti-Inflamma oxycodone [From OxyContin] Allergy Itching Verified 02/23/23 14:56 [place] Insulin Allergy Unknown severe Uncoded 01/21/23 10:36 itching tapes, adhesives, tegaderm, Allergy Unknown rash Uncoded 01/21/23 10:36 st wellbutrin Allergy Unknown rash Uncoded 01/21/23 10:36 lexapro AdvReac Severe lethargic Uncoded 01/21/23 10:36 Review of Systems 2 Review of Systems: Yes all other systems are reviewed and are negative [facility] Past Medical History [facility] Narrative: Social history: She denies tobacco, alcohol and drug use. Medical History Confusion Skin rash Vitamin D deficiency HTN (hypertension) HLD (hyperlipidemia) Cellulitis of leg, left Skin excoriation Urinary urgency Encounter to establish care Arthralgia of shoulder region, left Cervical spondylitis with radiculitis Myofascial pain on left side Depression OCD (obsessive compulsive disorder) DJD (degenerative joint disease) SI (sacroiliac) joint dysfunction Fibromyalgia GERD (gastroesophageal reflux disease) Neuropathy Diabetes Surgical History History of surgery Family History Family History Father No problems noted. Mother No problems noted. Social History Housing: House Alcohol intake: former Patient Tobacco Use Status: Never used Tobacco Tobacco use type: Cigarette e-Cigarette/Vaping Use: Never Used Second Hand Smoke Exposure: No Advance Directives: No Advance Directives Information Provided: Yes service: No Current occupational status: retired Cognitive needs: Yes (cane) Hearing needs: Yes (hearing aide) Vision needs: Yes (glasses) Physical Exam ED Vital Signs: Vital Signs - 24 hr 02/23/23 14:52 Temperature 96.2 F L Pulse Rate 58 Respiratory Rate 20 Blood Pressure 130/60 Pulse Oximetry 98 Oxygen Delivery Method Room Air BMI result Body Mass Index 30.2 Vital signs were normal Exam General: Awake, alert in no distress Head: Normocephalic, atraumatic EENT: PERRL, Lids normal, sclera normal, conjunctiva normal, nose normal , ears normal, throat without erythema or exudates Neck: Supple, no adenopathy, no trachea midline or C-spine tenderness Lung: breath sounds symmetric, no wheezing, rales or rhonchi Chest: symmetric movement, nontender Heart: regular rate and rhythm, normal S1, S2 no murmurs or rubs Abdomen: soft, non-tender, nondistended, normal bowel sounds Back: no vertebral tenderness, no CVAT Extremities: no deformities, moves all extremities symmetrically Neuro: Awake, alert, oriented, normal speech, moves all extremities symmetrically Psych: Pleasant, cooperative Course Course Course Narrative: This is a rapid medical exam: Additional HPI, ROS, PE not included below will be deferred to primary provider. Patient is a 72-year-old female presenting to the emergency department with urinary frequency for the past 2 days. Denies dysuria, fevers, or abdominal pain. Denies any nausea, vomiting, or diarrhea. Plan: UA, basic labs Medications Administered Discontinued Medications Generic Name Dose Route Start Last Admin Trade Name Freq PRN Reason Stop Dose Admin Nitrofurantoin Macrocrystals 100 mg 02/23/23 15:51 02/23/23 16:43 Nitrofurantoin Monohyd/M-Cryst 100 Mg Capsule PO 02/23/23 15:52 100 mg ONCE ONE Administration Oxybutynin Chloride 5 mg 02/23/23 15:51 02/23/23 16:42 Oxybutynin Chloride Er 5 Mg Tab.Er.24 PO 02/23/23 15:52 5 mg ONCE ONE Administration Medical Decision Making Medical Decision Making [facility] Narrative: 72-year-old female with history of diabetes mellitus, hypertension, hyperlipidemia, GERD, depression who presents emergency department for evaluation of urinary frequency. Patient states that over the past 2 days she has been urinating every 5 minutes. Patient had no other complaints, she denied dysuria, fever, chills or abdominal pain. Patient's vital signs were normal physical examination was unremarkable. Following evaluation was ordered: CBC, CMP, urinalysis, urine culture Patient's laboratory evaluation revealed a normal CBC. Patient's glucose was only slightly elevated at 127. Patient's BUN is elevated 21 with normal creatinine of 1.33. Urinalysis was negative for leukocyte esterase and nitrites. I did add a urine culture. At this time, the etiology of her urinary frequency is unclear, she may have bladder spasm or a urinary tract infection and I did discuss this with her. Patient was started on oxybutynin ER 5 mg daily for 2 weeks, I did give her a dose in the emergency department. She will also be treated empirically with Macrobid 100 mg q.12 hours x5 days for urinary tract infection. She states she does see the nurse practitioner in the urology practice at [facility] and advised to follow-up with this provider for re-evaluation in 1 week Differential Diagnosis Differential Diagnoses: The differential diagnosis associated with the presentation includes Differential diagnosis includes was not limited to urinary tract infection, bladder spasm, hyperglycemia Admission/Observation Consideration of admission/observation: Escalation of care including admission/observation considered Lab Data [facility] Lab Attestation statement: I reviewed the patient's lab results. See MDM above for my interpretation 02/23/23 15:09 02/23/23 15:09 Labs: Lab Results 02/23/23 Range/Units 15:09 WBC 10.3 (4.8-10.8) X10*3/uL RBC 4.18 L (4.20-5.50) X10*6/uL Hgb 13.1 (12.0-16.0) g/dl Hct 39.1 (37.0-47.0) % MCV 93.5 (80.0-98.0) fL MCH 31.3 (27.0-33.0) pg MCHC 33.5 (31.0-35.0) g/dl RDW 12.6 (11.0-16.0) % Plt Count 326 (160-400) X10*3/uL MPV 8.4 L (9.4-12.3) fL Immature Gran % (Auto) 0.5 H (0.0-0.4) % Neut % (Auto) 73.4 H (45-73) % Lymph % (Auto) 14.7 L (20-40) % [place] % (Auto) 6.3 (2-11) % Eos % (Auto) 4.4 H (0-4) % Baso % (Auto) 0.7 (0-2) % Lymph # (Auto) 1.5 (1.2-4.9) X10*3/uL [place] # (Auto) 0.7 (0.1-1.2) X10*3/uL Eos # (Auto) 0.5 H (0.0-0.4) X10*3/uL Baso # (Auto) 0.1 (0.0-0.2) X10*3/uL Abs Immat Gran (auto) 0.05 H (0.00-0.03) X10*3/uL Absolute Neuts (auto) 7.6 (2.0-8.3) x10*3/uL Absolute Nucleated RBC 0.000 (0.0-0.012) X10*3/uL Nucleated RBC % (auto) 0.0 (0.0-0.2) /100WBC Sodium 142 (135-145) mmol/L Potassium 4.2 (3.3-5.1) mmol/L Chloride 107 (96-108) mmol/L Carbon Dioxide 26 (22-29) mmol/L Anion Gap 13 (12-20) BUN 21 H (9-16) mg/dL Creatinine 1.33 (0.5-1.4) mg/dL Estim Creat Clear Calc 34.3 Estimated GFR 39 Random Glucose 127 H (60-115) mg/dL Calcium 9.5 (8.4-10.2) mg/dL Total Bilirubin 0.4 (0.0-1.0) mg/dL AST 35 H (5-31) U/L ALT 28 (0-31) U/L Alkaline Phosphatase 77 (39-117) U/L Total Protein 7.2 (6.5-8.0) g/dL Albumin 4.0 (3.5-5.0) g/dL Urine Color Dark Yellow Urine Appearance Clear Urine pH 5.5 (5.0-9.0) Ur Specific [place] 1.015 (1.005-1.025) Urine Protein Negative (Neg-Trace) mg/dL Urine Glucose (UA) Negative (Negative) mg/dL Urine Ketones Negative (Negative) mg/dL Urine Blood Negative (Negative) Urine Nitrite Negative (Negative) Ur Leukocyte Esterase Negative (Negative) Prescription Management I considered prescription management with: Antiviral and Other (Oxybutynin for bladder spasm) Chronic Conditions Patient?s care impacted by: Diabetes and Hypertension Discharge Plan Discharge Clinical Impression: Frequency of urination Patient Disposition: Home, Self-Care Additional Instructions: Your blood work was normal, your kidney function was normal and your blood glucose was only slightly elevated at 127. Your urinalysis was negative for nitrates and leukocyte esterase suggest that you do not have an infection at this time. I did add a urine culture to your urine specimen in this will take 2-3 days to come back. I am going to treat you like you have a urine infection and bladder spasm. Take Macrobid 100 mg pills, 1 pill twice a day for 5 days. Take oxybutynin ER 5 mg, 1 pill once a day for 1 week. Continue your other medications as prescribed. Follow-up with your urology provider in 1 week for re-evaluation. Follow-up with your doctor in 2 days. Please return to the emergency department if your symptoms get worse or if you develop any symptoms that are concerning to you. Prescriptions: New nitrofurantoin monohyd/m-cryst [Macrobid] 100 mg capsule 100 mg PO Q12H 5 Days Qty: 10 0RF Rx Instructions: must administer with a meal/food oxybutynin chloride 5 mg tablet extended release 24hr 5 mg PO DAILY 14 Days Qty: 14 0RF No Action Mickey Protect (zinc oxide) 12 % cream 1 appl topical QID PRN (Reason: skin irritation) 10 Days Qty: 142 0RF (DME) OneTouch Ultra Test Strip See Rx Instructions .Route Qty: 100 2RF Rx Instructions: check BS 2-3x/day levothyroxine 125 mcg tablet 125 mcg PO DAILY 90 Days Qty: 90 1RF omeprazole 40 mg capsule,delayed release(DR/EC) 40 mg PO DAILY Qty: 90 0RF diclofenac sodium 50 mg tablet,delayed release (DR/EC) 50 mg PO BID Qty: 180 0RF gabapentin 400 mg capsule 400 mg PO TID 30 Days Qty: 90 1RF simvastatin 40 mg tablet 40 mg PO BEDTIME Qty: 90 0RF insulin glargine [Basaglar KwikPen U-100 Insulin] 100 unit/mL (3 mL) insulin pen 45 unit subcut QAM Qty: 15 3RF magnesium oxide 400 mg (241.3 mg magnesium) tablet 400 mg PO DAILY Qty: 30 0RF hydrocortisone 2.5 % cream with perineal applicator 1 appl ID BID-TID PRN (Reason: hemorrhoids) Qty: 30 0RF hydroxyzine HCl 25 mg tablet 25 - 50 mg PO amoxicillin-pot clavulanate 875-125 mg tablet 1 tab PO BID 10 Days Qty: 20 0RF lorazepam 0.5 mg tablet 0.5 mg PO TID aspirin [Adult Aspirin Regimen] 81 mg tablet,delayed release (DR/EC) 81 mg PO DAILY acetaminophen [Tylenol Arthritis Pain] 650 mg tablet extended release 650 mg PO Q8H biotin 1 mg capsule 1 mg PO DAILY omega 3-cxk-atr-fish oil [Fish Oil] 1,000 mg (120 mg-180 mg) capsule 1 cap PO DAILY levocetirizine [Xyzal] 5 mg tablet 5 mg PO DAILY (DME) OneTouch Ultra Test Strip See Rx Instructions Not Applicable TID Qty: 10 Rx Instructions: As directed pyridoxine (vitamin B6) 100 mg tablet 100 mg PO DAILY 90 Days Qty: 90 3RF fluoxetine 20 mg capsule 30 mg PO DAILY Interventions: ED Discharge Assessment Last Done: 02/23/23 16:48 Discharge Date/Time: 02/23/23 16:48
[2023-02-23 15:16] LABS: MANUAL DIFF FLAG NO
[2023-02-23 15:17] LABS: Basophils Absolute Auto 0.1 X10*3/uL (0.0-0.2); Basophils Percent Auto 0.7 % (0-2); Eosinophils Absolute Auto 0.5 X10*3/uL (0.0-0.4); Eosinophils Percent Auto 4.4 % (0-4); Hematocrit 39.1 % (37.0-47.0); Hemoglobin 13.1 g/dl (12.0-16.0); Imm Gran Abs Auto 0.05 X10*3/uL (0.00-0.03); Imm Gran Pct Auto 0.5 % (0.0-0.4); Lymphocytes Absolute Auto 1.5 X10*3/uL (1.2-4.9); Lymphocytes Percent Auto 14.7 % (20-40); Mean Corpuscular HGB Conc 33.5 g/dl (31.0-35.0); Mean Corpuscular Hemoglobin 31.3 pg (27.0-33.0); Mean Corpuscular Volume 93.5 fL (80.0-98.0); Mean Platelet Volume 8.4 fL (9.4-12.3); Monocytes Absolute Auto 0.7 X10*3/uL (0.1-1.2); Monocytes Percent Auto 6.3 % (2-11); Neutrophils Absolute Auto 7.6 x10*3/uL (2.0-8.3); Neutrophils Percent Auto 73.4 % (45-73); Platelet Count 326 X10*3/uL (160-400); Red Blood Count 4.18 X10*6/uL (4.20-5.50); Red Cell Distribution Width 12.6 % (11.0-16.0); White Blood Count 10.3 X10*3/uL (4.8-10.8)
[2023-02-23 15:18] LABS: Appearance Urine Clear; Color Urine Dark Yellow; Glucose Urine UA Negative (Negative); Leukocyte Esterase Urine Negative (Negative); Nitrite Urine Negative (Negative); PH 5.5 (5.0-9.0); Specific Gravity - Urine 1.015 (1.005-1.025); Urine Blood Negative (Negative); Urine Ketones Negative (Negative); Urine Protein Negative (Neg-Trace)
[2023-02-23 15:41] LABS: Alanine Aminotransferase 28 U/L (0-31); Alkaline Phosphatase 77 U/L (39-117); Anion Gap 13 (12-20); Aspartate Amino Transferase 35 U/L (5-31); Bilirubin Total 0.4 mg/dL (0.0-1.0); Blood Urea Nitrogen 21 mg/dL (9-16); Calcium 9.5 mg/dL (8.4-10.2); Carbon Dioxide 26 mmol/L (22-29); Chloride 107 mmol/L (96-108); Creatinine Clr Calc Pharmacy 34.3; Estimated Glomerular Filt Rate 39; Glucose Random 127 mg/dL (60-115); Potassium 4.2 mmol/L (3.3-5.1); Sodium 142 mmol/L (135-145); Total Protein 7.2 g/dL (6.5-8.0)
[2023-02-23] MEDS: oxyBUTYnin chloride ER 5 MG TAB.ER.24 PO (16:42)
[2023-02-23] MEDS: Nitrofurantoin Monohyd/M-Cryst 100 MG CAPSULE PO (16:43)
--- NOTE | 2023-02-23 16:46 | PC.NURSE ---
PT WAS EVALUATED BY PROVIDER, SHE WAS MEDICATED CHARTED,
== END 2023-02-23 16:48 | disposition home or self-care (01) ==
PROVIDERS: Registered Nurse Emergency; Emergency Provider Emergency Medicine Emergency Medical Services; PCP Hospitalist
DX: R35.0 Frequency of micturition (principal); E11.9 Type 2 diabetes mellitus without complications; I10 Essential (primary) hypertension; E78.5 Hyperlipidemia, unspecified; Z79.82 Long term (current) use of aspirin; Z79.899 Other long term (current) drug therapy; Z79.02 Long term (current) use of antithrombotics/antiplatelets; Z79.4 Long term (current) use of insulin
CPT/HCPCS: 36415; 80053; 81003; 85025; 87086; 99283

== ENCOUNTER 2023-03-01 08:40 | Inpatient (IN) | payer MEDICARE, OTHER, SELFPAY ==
--- NOTE | ~2023-03-01 | CT_ITS ---
EXAMINATION: CT ABDOMEN AND PELVIS WITH CONTRAST CLINICAL INFORMATION: Abdominal pain COMPARISON: None available. TECHNIQUE: Multidetector volumetric images were obtained from the superior aspect of the liver through the pubic symphysis following administration 85 mL of Omnipaque 350 intravenous contrast. Sagittal and coronal reformatted images were obtained on the technologist's workstation. Oral contrast: No This CT examination was performed using dose optimization techniques as appropriate, variously including the following: *Automated exposure control *Adjustment of mA and/or kV according to patient size (this includes techniques or standardized protocols for targeted exams where dose is matched to indication/reason for exam; i.e. extremities or head) *Use of iterative reconstruction technique DLP: 524 mGy-cm FINDINGS: LUNG BASES: Atelectatic/scarring change in the lingula. LIVER, GALLBLADDER, AND BILIARY TREE: Mild nonspecific periportal edema. No gallstones. Small pericholecystic fluid or edema. Mild lobular configuration of the liver. Trace perihepatic ascites. PANCREAS: Fatty atrophy. SPLEEN: Unremarkable. ADRENAL GLANDS: Unremarkable. KIDNEYS AND URETERS: Renal cysts for which no further follow-up recommended. Small renal hypodensities, too small to characterize. BLADDER: Unremarkable. GASTROINTESTINAL TRACT: Mild colonic wall thickening likely related to lack of distention although an underlying mild colitis is a consideration. Appendix not seen. Small sliding-type hiatal hernia. No small bowel obstructive process or abnormal omental thickening. ABDOMINAL WALL: No significant hernia is appreciated. LYMPH NODES: No suspiciously enlarged lymphadenopathy, with small mesenteric and pelvic nodes seen. VASCULAR: Unremarkable. PELVIC VISCERA: Small calcifications of the uterus may reflect small calcific fibroids. No suspicious pelvic masses. OSSEOUS STRUCTURES: Multilevel lumbar spondylosis and degenerative disc space narrowing, without acute compression fractures. CT/CT abdomen pelvis w IV con IMPRESSION: Mild colonic wall thickening likely related to lack of distention although mild colitis considered. Mild nonspecific periportal edema with a mildly lobular configuration of the liver. This can be seen in the setting of cirrhosis. Trace perihepatic ascites. Small pericholecystic fluid, but no calcific cholelithiasis appreciated. Other incidental findings as noted above. Fleischner guidelines were followed.
--- NOTE | 2023-03-01 08:41 | ED_ITS ---
HPI - Nausea/Vomiting/Diarrhea General Chief complaint: Nausea/Vomiting/Diarrhea Stated complaint: N/V/D PER EMS Source: patient and old records reviewed Mode of arrival: EMS Limitations: no limitations History of Present Illness HPI Narrative: 72 yo female with PMH of OCD, HTN, HLD, hypothyroidism, renal colic, DM, GERD, depression, here with c/o having abrupt onset n/v/d starting in the evening. Ate chicken soup at home without issue. No travel no sick contacts. Has been taking macrobid for presumed UTI as of 02/23. She denies abdominal pain or fevers. She states she is very sick and nauseated at this time MD elicited complaint: nausea, vomiting and diarrhea Onset (ago): day(s) (evening yesterday ) Description of vomiting: food contents, watery and bilious Description of diarrhea: watery Associated nausea: Yes Associated abdominal pain: No Location of pain: none Exacerbating factors: eating Relieving factors: none Context: recent antibiotic use Associated symptoms: loss of appetite, malaise, nausea/vomiting and weakness Related Data Home Medications Medication Instructions Recorded Confirmed aspirin 81 mg tablet,delayed 81 mg PO DAILY 01/01/21 12/27/22 release (Adult Aspirin Regimen) lorazepam 0.5 mg tablet 0.5 mg PO TID PRN ANXIETY OR SLEEP 01/01/21 12/27/22 biotin 1 mg capsule 1 mg PO DAILY 05/17/21 12/27/22 omega 3-mqn-dhn-fish oil 1,000 mg 1 cap PO DAILY 05/17/21 12/27/22 (120 mg-180 mg) capsule (Fish Oil) blood sugar diagnostic (DVDPlayuch #10 ea 05/27/21 09/28/22 Ultra Test strips) levocetirizine 5 mg tablet (Xyzal) 5 mg PO DAILY 09/09/21 12/27/22 hydroxyzine HCl 25 mg tablet 25 - 50 mg PO DAILY 12/16/21 12/27/22 fluoxetine 10 mg capsule 10 mg PO DAILY 03/01/23 insulin glargine 100 unit/mL (3 45 unit subcut DAILY 03/01/23 mL) subcutaneous pen (Basaglar KwikPen U-100 Insulin) levothyroxine 125 mcg tablet 125 mcg PO DAILY@0630 03/01/23 sucralfate 1 gram tablet 1 g PO BID@0630,1630 03/01/23 Previous Rx's Medication Instructions Recorded hydrocortisone 2.5 % topical cream 1 appl LA BID-TID PRN hemorrhoids 09/09/21 with perineal applicator #30 grams zinc oxide 12 % topical cream 1 appl topical QID PRN skin 12/29/21 (Mickey Protect (zinc oxide)) irritation 10 days #142 grams blood sugar diagnostic (OneTouch #100 ea 07/14/22 Ultra Test strips) magnesium oxide 400 mg (241.3 mg 400 mg PO DAILY #30 tabs 07/24/22 magnesium) tablet omeprazole 40 mg capsule,delayed 40 mg PO DAILY #90 caps 12/12/22 release diclofenac sodium 50 mg 50 mg PO BID #180 tabs 12/16/22 tablet,delayed release pyridoxine (vitamin B6) 100 mg 100 mg PO DAILY 90 days #90 tabs 12/26/22 tablet gabapentin 400 mg capsule 400 mg PO TID 30 days #90 caps 12/30/22 simvastatin 40 mg tablet 40 mg PO BEDTIME #90 tabs 01/19/23 amoxicillin 875 mg-potassium 1 tab PO BID 10 days #20 tabs 01/21/23 clavulanate 125 mg tablet nitrofurantoin 100 mg PO Q12H 5 days #10 caps 02/23/23 monohydrate/macrocrystals 100 mg capsule (Macrobid) oxybutynin chloride 5 mg 5 mg PO DAILY 14 days #14 tabs 02/23/23 tablet,extended release 24 hr Allergies Allergy/AdvReac Type Severity Reaction Status Date / Time codeine [Codeine] Allergy Unknown NAUSEA AND Verified 02/23/23 14:56 VOMITING, nausea pregabalin Allergy Unknown Confusion Verified 02/23/23 14:56 rosuvastatin [Crestor] Allergy Unknown joint pain Verified 02/23/23 14:56 NSAIDS (Non-Steroidal Allergy Swelling Verified 02/23/23 14:56 Anti-Inflamma oxycodone [From OxyContin] Allergy Itching Verified 02/23/23 14:56 [place] Insulin Allergy Unknown severe Uncoded 01/21/23 10:36 itching tapes, adhesives, tegaderm, Allergy Unknown rash Uncoded 01/21/23 10:36 st wellbutrin Allergy Unknown rash Uncoded 01/21/23 10:36 lexapro AdvReac Severe lethargic Uncoded 01/21/23 10:36 Review of Systems 2 Review of Systems: Constitutional : No Weight loss, No Fever, No Chills ENT/Mouth : No sore throat, No Rhinorrhea Eyes: No Swelling, No Redness Cardiovascular : No Chest Pain, No SOB, NoEdema Respiratory : No Cough, No Sputum, No Wheezing Gastrointestinal : Positive Nausea, Positive Vomiting, positive Diarrhea, no abdominal Pain, No Hematochezia, No Melena Genitourinary : No Dysuria, No Urinary Frequency, No Hematuria, No Urgency Musculoskeletal : No joint pain, No Myalgias, No Joint Swelling Skin : No Skin Lesions, No rash Neuro : pos Weakness, No Numbness, No Dizziness, No Headache Psych : No Anxiety/Panic, No Depression Heme/Lymph: No Bruising, No Lymphadenopathy Endocrine : No Polyuria, No Polydipsia All other systems reviewed and are negative. Gastrointestinal: Gastrointestinal: Reports nausea PMFSH Past Medical History Attestation statement: The following information was validated with the patient. Source: old records reviewed Medical History Confusion Skin rash Vitamin D deficiency HTN (hypertension) HLD (hyperlipidemia) Cellulitis of leg, left Skin excoriation Urinary urgency Encounter to establish care Arthralgia of shoulder region, left Cervical spondylitis with radiculitis Myofascial pain on left side Depression OCD (obsessive compulsive disorder) DJD (degenerative joint disease) SI (sacroiliac) joint dysfunction Fibromyalgia GERD (gastroesophageal reflux disease) Neuropathy Diabetes Surgical History History of surgery Family History Family History Father No problems noted. Mother No problems noted. Social History Social History Housing: House Alcohol intake: former Patient Tobacco Use Status: Never used Tobacco Tobacco use type: Cigarette Smoked in Last 30 Days: No e-Cigarette/Vaping Use: Never Used Second Hand Smoke Exposure: No Use of substances other than those prescribed or required for medical reasons: No Advance Directives: No Advance Directives Information Provided: Yes service: No Current occupational status: retired Cognitive needs: Yes (cane) Hearing needs: Yes (hearing aide) Vision needs: Yes (glasses) Physical Exam 2 Vital Signs: Vital Signs: Last Vital Signs Temp 97.7 F 03/01/23 11:24 Pulse 56 03/01/23 11:24 Resp 16 03/01/23 11:24 BP 138/56 L 03/01/23 11:24 Pulse Ox 99 03/01/23 11:24 O2 Del Method Room Air 03/01/23 11:24 BMI result Body Mass Index 27.8 Appearance: Alert. Oriented X3. No acute distress. Eyes: Pupils equal, round and reactive to light. ENT: Pharynx very dry MMM Neck: Normal inspection. Neck supple. CVS: Normal heart rate and rhythm. Pulses normal. Respiratory: No respiratory distress. Breath sounds normal. Abdomen: Soft and non-tender. Skin: Skin warm and dry. pale skin color. Normal skin turgor. Extremities: No lower extremity edema. No calf ttp Neuro: Oriented X 3. No motor deficit. No sensory deficit. Course Course Course Narrative: lactic acidosis due to dehydration and vomiting not infection or severe sepsis wbc acute phase reactant due to vomiting and not infection or severe sepsis colitis likely due to viral and not bacterial - antibiotics held Medications Administered Generic Name Dose Route Start Last Admin Trade Name Freq PRN Reason Stop Dose Admin Lactated Ringer's 1,000 mls @ 100 mls/hr 03/01/23 13:30 03/01/23 13:42 Lr IVCONT 100 mls/hr .Q10H GLENN Administration Discontinued Medications Generic Name Dose Route Start Last Admin Trade Name Freq PRN Reason Stop Dose Admin Sodium Chloride 1,000 mls @ 999 mls/hr 03/01/23 09:00 03/01/23 10:45 Ns IVCONT 03/01/23 10:00 Infused .Q1H1M GLENN Infusion Magnesium Sulfate 2 gm in 50 mls @ 25 mls/hr 03/01/23 10:59 03/01/23 12:13 Magnesium Sulfate/H2o IV 03/01/23 12:58 25 mls/hr ONCE ONE Administration Iohexol 85 ml 03/01/23 11:43 03/01/23 11:44 Iohexol 350 Mg/Ml 100 Ml Infus..Btl IV 03/01/23 11:44 85 ml ONCE ONE Administration Ondansetron HCl 4 mg 03/01/23 08:47 03/01/23 09:58 Ondansetron Hcl 4 Mg/2 Ml Vial IVPUSH 03/01/23 08:48 4 mg ONCE ONE Administration Medical Decision Making Medical Decision Making [facility] Narrative: 72 yo female with PMH of OCD, HTN, HLD, hypothyroidism, renal colic, DM, GERD, depression here with c/o n/v/d with recent macrobid use at this time she is very nauseated but has no abdominal pain. Will need labs, stools studies, IVF, zofran, CT scan for colitis. She is not a very good historian but is not confused. Differential Diagnosis Differential Diagnoses: The differential diagnosis associated with the presentation includes enteritis, cdiff, viral syndrome, dehydration Admission/Observation Consideration of admission/observation: Escalation of care including admission/observation considered admit for further lactic acid trend and VIF Consult Healthcare Provider Management of the patient was discussed with: Hospitalist (will admit) Lab Data [facility] Lab Attestation statement: I reviewed the patient's lab results. 03/01/23 09:34 03/01/23 10:25 Labs: Lab Results 03/01/23 03/01/23 03/01/23 Range/Units 09:34 10:25 11:27 WBC 13.8 H (4.8-10.8) X10*3/uL RBC 4.42 (4.20-5.50) X10*6/uL Hgb 13.9 (12.0-16.0) g/dl Hct 41.6 (37.0-47.0) % MCV 94.1 (80.0-98.0) fL MCH 31.4 (27.0-33.0) pg MCHC 33.4 (31.0-35.0) g/dl RDW 12.8 (11.0-16.0) % Plt Count 263 (160-400) X10*3/uL MPV 9.2 L (9.4-12.3) fL Immature Gran % (Auto) Cancelled Neut % (Auto) Cancelled Lymph % (Auto) Cancelled [place] % (Auto) Cancelled Eos % (Auto) Cancelled Baso % (Auto) Cancelled Lymph # (Auto) Cancelled [place] # (Auto) Cancelled Eos # (Auto) Cancelled Baso # (Auto) Cancelled Abs Immat Gran (auto) Cancelled Absolute Neuts (auto) Cancelled Absolute Nucleated RBC 0.000 (0.0-0.012) X10*3/uL Nucleated RBC % (auto) 0.0 (0.0-0.2) /100WBC Neutrophils % (Manual) 92 H (45-73) % Band Neutrophils % 3 (3-5) % Lymphocytes % (Manual) 3 L (20-40) % Monocytes % (Manual) 1 L (2-11) % Eosinophils % (Manual) 1 (0-4) % Abs Neuts (Manual) 13.1 H (2.0-8.3) X10*3/uL Lymphocytes # (Manual) 0.4 L (1.2-4.9) X10*3/uL Monocytes # (Manual) 0.1 (0.1-1.2) X10*3/uL Eosinophils # (Manual) 0.1 (0.0-0.4) X10*3/uL Toxic Vacuolation PRESENT Platelet Estimate NORMAL (NORMAL) Plt Morphology Comment NORMAL RBC Morphology NOTED Palms Cells 1+ (0-2) /OIF Acanthocytes (Spur) 3+ (>5) /OIF Schistocytes 1+ (0-2) /OIF Smear Tech's Comments MANUAL DIFF Sodium 140 (135-145) mmol/L Potassium 3.9 (3.3-5.1) mmol/L Chloride 107 (96-108) mmol/L Carbon Dioxide 20 L (22-29) mmol/L Anion Gap 17 (12-20) BUN 27 H (9-16) mg/dL Creatinine 0.90 (0.5-1.4) mg/dL Estim Creat Clear Calc 52.6 Estimated GFR > 60 POC Glucose (60-115) mg/dL Random Glucose 215 H (60-115) mg/dL Lactic Acid 2.8 H* (0.5-2.0) mmol/L Lactic Acid F/U @ 2Hr (0.5-2.0) mmol/L Calcium 9.0 (8.4-10.2) mg/dL Magnesium 1.3 L* (1.6-2.6) mg/dL Total Bilirubin 0.5 (0.0-1.0) mg/dL Direct Bilirubin 0.2 (0.0-0.5) mg/dL AST 38 H (5-31) U/L ALT 27 (0-31) U/L Alkaline Phosphatase 61 (39-117) U/L Total Protein 6.6 (6.5-8.0) g/dL Albumin 3.7 (3.5-5.0) g/dL Lipase 61 (8-78) U/L Procalcitonin 0.02 ng/mL Urine Color Yellow Urine Appearance Clear Urine pH 5.5 (5.0-9.0) Ur Specific Natalia 1.020 (1.005-1.025) Urine Protein Negative (Neg-Trace) mg/dL Urine Glucose (UA) Negative (Negative) mg/dL Urine Ketones 40 (Negative) mg/dL Urine Blood Negative (Negative) Urine Nitrite Negative (Negative) Ur Leukocyte Esterase Trace H (Negative) Urine RBC 0-2 (0-2) /HPF Urine WBC 0-5 (0-5) /HPF Ur Squamous Epith Cells 3-5 (0-2) /HPF Urine Bacteria None Seen (None Seen) Hyaline Casts 3-5 (0-2) /LPF Influenza Type A (PCR) NEGATIVE (Negative) Influenza Type B (PCR) NEGATIVE (Negative) RSV RNA Qual (PCR) NEGATIVE (Negative) SARS-CoV-2 RNA (RT-PCR) NEGATIVE (Negative) 03/01/23 03/01/23 Range/Units 12:33 13:49 WBC (4.8-10.8) X10*3/uL RBC (4.20-5.50) X10*6/uL Hgb (12.0-16.0) g/dl Hct (37.0-47.0) % MCV (80.0-98.0) fL MCH (27.0-33.0) pg MCHC (31.0-35.0) g/dl RDW (11.0-16.0) % Plt Count (160-400) X10*3/uL MPV (9.4-12.3) fL Immature Gran % (Auto) Neut % (Auto) Lymph % (Auto) [place] % (Auto) Eos % (Auto) Baso % (Auto) Lymph # (Auto) [place] # (Auto) Eos # (Auto) Baso # (Auto) Abs Immat Gran (auto) Absolute Neuts (auto) Absolute Nucleated RBC (0.0-0.012) X10*3/uL Nucleated RBC % (auto) (0.0-0.2) /100WBC Neutrophils % (Manual) (45-73) % Band Neutrophils % (3-5) % Lymphocytes % (Manual) (20-40) % Monocytes % (Manual) (2-11) % Eosinophils % (Manual) (0-4) % Abs Neuts (Manual) (2.0-8.3) X10*3/uL Lymphocytes # (Manual) (1.2-4.9) X10*3/uL Monocytes # (Manual) (0.1-1.2) X10*3/uL Eosinophils # (Manual) (0.0-0.4) X10*3/uL Toxic Vacuolation Platelet Estimate (NORMAL) Plt Morphology Comment RBC Morphology [place] Cells /OIF Acanthocytes (Spur) /OIF Schistocytes /OIF Smear Tech's Comments Sodium (135-145) mmol/L Potassium (3.3-5.1) mmol/L Chloride (96-108) mmol/L Carbon Dioxide (22-29) mmol/L Anion Gap (12-20) BUN (9-16) mg/dL Creatinine (0.5-1.4) mg/dL Estim Creat Clear Calc Estimated GFR POC Glucose 149 H (60-115) mg/dL Random Glucose (60-115) mg/dL Lactic Acid (0.5-2.0) mmol/L Lactic Acid F/U @ 2Hr 2.4 H* (0.5-2.0) mmol/L Calcium (8.4-10.2) mg/dL Magnesium (1.6-2.6) mg/dL Total Bilirubin (0.0-1.0) mg/dL Direct Bilirubin (0.0-0.5) mg/dL AST (5-31) U/L ALT (0-31) U/L Alkaline Phosphatase (39-117) U/L Total Protein (6.5-8.0) g/dL Albumin (3.5-5.0) g/dL Lipase (8-78) U/L Procalcitonin ng/mL Urine Color Urine Appearance Urine pH (5.0-9.0) Ur Specific Natalia (1.005-1.025) Urine Protein (Neg-Trace) mg/dL Urine Glucose (UA) (Negative) mg/dL Urine Ketones (Negative) mg/dL Urine Blood (Negative) Urine Nitrite (Negative) Ur Leukocyte Esterase (Negative) Urine RBC (0-2) /HPF Urine WBC (0-5) /HPF Ur Squamous Epith Cells (0-2) /HPF Urine Bacteria (None Seen) Hyaline Casts (0-2) /LPF Influenza Type A (PCR) (Negative) Influenza Type B (PCR) (Negative) RSV RNA Qual (PCR) (Negative) SARS-CoV-2 RNA (RT-PCR) (Negative) Independent Interpretation I performed an independent interpretation of an: EKG and CT Scan (mild colitis) Interpretation: Rate: 52 Rhythm: sinus bradycardia [place]: left Normal P waves. Normal JOSHUA. Normal QRS complex. ST T wave : no TYE, nonspecific ST T wave changes qTC: normal prior studies: no acute ischemia The study has been interpreted contemporaneously by me. . Radiology Impression Discussion of test interpretation with radiology: I have reviewed the radiologist's reading. Independent Historian Clinical information obtained from an independent historian. History obtained from or confirmed by: EMS External Record Review External record reviewed: Inpatient record Critical Care Time Critical Care Time Critical Care Time: Yes Total Critical Care Time: 45 Attestation: IVF, repeat lactic acid, repletion of IV magnesium, admission I attest to this time spent taking care of the patient Discharge Plan Discharge Clinical Impression: Acidosis, lactic, Hypomagnesemia Diarrhea Qualifiers: Diarrhea type: presumed infectious Qualified Code(s): R19.7 - Diarrhea, unspecified Vomiting Qualifiers: Vomiting type: unspecified Nausea presence: with nausea Qualified Code(s): R 11.2 - Nausea with vomiting, unspecified Patient Disposition: Admitted As Inpatient
--- NOTE | 2023-03-01 08:48 | ECG_ITS ---
Test Reason : abd pain Blood Pressure : / mmHG Vent. Rate : 052 BPM Atrial Rate : 052 BPM P-R Int : 154 ms QRS Dur : 086 ms QT Int : 496 ms P-R-T Axes : 061 -08 044 degrees QTc Int : 461 ms Sinus bradycardia prolonged QT Nonspecific T wave abnormality Abnormal ECG When compared with ECG of 15-OCT-2018 14:07, Nonspecific T wave abnormality now evident in Lateral leads Referred By: Lala Benjamin Electronically Signed By:EMELI JAMISON MD
[2023-03-01 09:10] VITALS: BP 125/54; BP 140/77; PULSE 53; PULSE 60; RESP 16; TEMP 36.2; O2SAT 98; O2SAT 99; BMI 27.8
--- NOTE | 2023-03-01 09:13 | PC.NURSE ---
pt coming from home covered in diarrhea. pt cleaned and changed. rectal temp taken, 97.2. provider art aware. pt given warm blankets. is resting quietly on stretcher. poc 210 per EMS. provider art aware.
[2023-03-01] MEDS: 0.9 % Sodium Chloride 1,000 ML 999 ML IVCONT (09:37)
--- NOTE | 2023-03-01 09:45 | PC.NURSE ---
pt appears pale/green. c/o being cold. pt given multiple warm blankets. 22G IV placed to left foreartm. labs drawn and sent. pt currently sleeping. appears more comfortable. rr even/unlabored.
[2023-03-01 09:48] LABS: Hematocrit 41.6 % (37.0-47.0); Hemoglobin 13.9 g/dl (12.0-16.0); Mean Corpuscular HGB Conc 33.4 g/dl (31.0-35.0); Mean Corpuscular Hemoglobin 31.4 pg (27.0-33.0); Mean Corpuscular Volume 94.1 fL (80.0-98.0); Mean Platelet Volume 9.2 fL (9.4-12.3); Platelet Count 263 X10*3/uL (160-400); Red Blood Count 4.42 X10*6/uL (4.20-5.50); Red Cell Distribution Width 12.8 % (11.0-16.0); White Blood Count 13.8 X10*3/uL (4.8-10.8)
[2023-03-01] MEDS: ondansetron HCL 4 MG/2 ML VIAL IVPUSH ×2 (09:58→16:56)
[2023-03-01 10:28] LABS: Influenza A PCR NEGATIVE (Negative); Influenza B PCR NEGATIVE (Negative); Resp Syncy Virus RNA Qual PCR NEGATIVE (Negative); SARS COV2 PCR INHOUSE NEGATIVE (Negative)
[2023-03-01 11:00] LABS: Alanine Aminotransferase 27 U/L (0-31); Albumin Level 3.7 g/dL (3.5-5.0); Alkaline Phosphatase 61 U/L (39-117); Anion Gap 17 (12-20); Aspartate Amino Transferase 38 U/L (5-31); Bilirubin Direct 0.2 mg/dL (0.0-0.5); Bilirubin Total 0.5 mg/dL (0.0-1.0); Blood Urea Nitrogen 27 mg/dL (9-16); Carbon Dioxide 20 mmol/L (22-29); Chloride 107 mmol/L (96-108); Creatinine Clr Calc Pharmacy 52.6; Estimated Glomerular Filt Rate > 60; Glucose Random 215 mg/dL (60-115); Lipase 61 U/L (8-78); Magnesium 1.3 mg/dL (1.6-2.6); Potassium 3.9 mmol/L (3.3-5.1); Sodium 140 mmol/L (135-145); Total Protein 6.6 g/dL (6.5-8.0)
[2023-03-01 11:05] LABS: SLIDE REVIEW MANUAL DIFF
[2023-03-01 11:07] LABS: Procalcitonin 0.02 ng/mL
[2023-03-01 11:09] LABS: Band Neutrophils Percent 3 % (3-5); Eosinophils Absolute Manual 0.1 X10*3/uL (0.0-0.4); Eosinophils Percent Manual 1 % (0-4); Lymphocytes Absolute Manual 0.4 X10*3/uL (1.2-4.9); Lymphocytes Percent Manual 3 % (20-40); Monocytes Absolute Manual 0.1 X10*3/uL (0.1-1.2); Monocytes Percent Manual 1 % (2-11); Neutrophils Absolute Manual 13.1 X10*3/uL (2.0-8.3); Neutrophils Percent Manual 92 % (45-73)
[2023-03-01 11:12] LABS: Acanthocytes 3+ (>5) /OIF; RBC Morphology NOTED; Schistocytes 1+ (0-2) /OIF
[2023-03-01 11:13] LABS: Burr Cells 1+ (0-2) /OIF; Platelet Estimate NORMAL (NORMAL); Platelet Morphology Comment NORMAL; Toxic Vacuolation PRESENT
[2023-03-01 11:24] VITALS: BP 138/56; PULSE 56; RESP 16; TEMP 36.5; O2SAT 99
[2023-03-01 11:35] LABS: Lactic Acid 2.8 mmol/L (0.5-2.0)
[2023-03-01 11:35] LABS: Appearance Urine Clear; Color Urine Yellow; Glucose Urine UA Negative (Negative); Leukocyte Esterase Urine Trace (Negative); Nitrite Urine Negative (Negative); PH 5.5 (5.0-9.0); UMIC TRIGGER UACC YES; Urine Blood Negative (Negative); Urine Ketones 40 mg/dL (Negative); Urine Protein Negative (Neg-Trace)
[2023-03-01 11:38] LABS: Bacteria Urine None Seen (None Seen); RBC Urine 0-2 /HPF (0-2); WBC Urine 0-5 /HPF (0-5)
[2023-03-01 11:44] LABS: Reflex Lactate? Lactic Acid Added
[2023-03-01] MEDS: iohexoL 350 MG/ML 100 ML INFUS..BTL 85 ML IV (11:44)
[2023-03-01] MEDS: Magnesium Sulfate/H2O 2 GM/50 ML PIGGYBACK IV (12:13)
[2023-03-01 13:08] LABS: ~Lactic Acid-LAB USE ONLY 2.4 mmol/L (0.5-2.0)
[2023-03-01] MEDS: Lactated Ringers 1,000 ML 100 ML IVCONT ×2 (13:42→23:56)
[2023-03-01 13:52] LABS: Glucose, Whole Blood 149 mg/dL (60-115)
--- NOTE | 2023-03-01 13:52 | P.HPHOSP_ITS ---
History of Present Illness Date of Service: 03/01/23 Attending physician on admission: Jay Galloway Chief Complaint: Nausea, vomiting, diarrhea Pt is a 72-year-old female with a PMH significant for HTN, HLD,?hypothyroidism, GERD, insulin-dependent diabetes type 2, fibromyalgia, depression, and OCD who presents to the ED with?sudden onset nausea, vomiting, and diarrhea starting last evening. Patient is unable to further specify exactly when symptoms occurred or if there were precipitating events. Patient is alert and oriented x4, though a poor historian. Patient denies hematemesis, hematochezia, melena. No abdominal pain. Denies any sick contacts or eating anything that seemed undercooked, foul, or spoiled. Denies chest pain/pressure, palpitations. No shortness of breath. Denies any sick contacts. Pt also complains of generalized weakness and unsteadiness on feet in the ED. Reports legs feel weak and that they will give out . States she is able to ambulate on her own in her home and with a cane while in the community. Pt lives at home with her . Of note, pt was started on Macrobid for possible UTI on 02/23. Pt said it made her stomach feel upset and she stopped taking it after two days. In the ED pt was afebrile, with pulse in the 50s, and respiratory rate it M0 with slightly soft BP as low as 125/54, satting at 99% on RA. Labs were significant for leukocytosis of 13.8, lactic acid 2.8 with repeat 2.4, magnesium 1.3, AST 38. Stable H&H of 13.9/41.6. Procalcitonin WNL at 0.02. UA negative for UTI. Negative for influenza type a and B, RSV, COVID. CT?of abdomen and pelvis found mild colonic wall thickening likely related to lack of distension although mild colitis a possibility. Also found possible cirrhosis with trace perihepatic ascites and small pericholecystic fluid. EKG demonstrated sinus bradycardia with rate of 52, nonspecific T-wave abnormality in V1 and V2, with QTc of 461. Pt was treated with IVF, Mag sulfate, and ondansetron. Patient will be admitted to the hospital under observation for treatment and further evaluation of sudden onset nausea, vomiting, diarrhea possibly secondary to viral colitis. Review of Systems 2 Review of Systems: N/V/D since last evening Generalized weakness, unsteadiness on feet Denies abdominal pain No hematemesis, hematochezia Denies lightheadedness, dizziness No chest pain/pressure, palpitations Denies shortness of breath [facility] Medical History Confusion Skin rash Vitamin D deficiency HTN (hypertension) HLD (hyperlipidemia) Cellulitis of leg, left Skin excoriation Urinary urgency Encounter to establish care Arthralgia of shoulder region, left Cervical spondylitis with radiculitis Myofascial pain on left side Depression OCD (obsessive compulsive disorder) DJD (degenerative joint disease) SI (sacroiliac) joint dysfunction Fibromyalgia GERD (gastroesophageal reflux disease) Neuropathy Diabetes Family History Father No problems noted. Mother No problems noted. Surgical History History of surgery Social History Housing: House Alcohol intake: former Patient Tobacco Use Status: Never used Tobacco Tobacco use type: Cigarette Smoked in Last 30 Days: No e-Cigarette/Vaping Use: Never Used Second Hand Smoke Exposure: No Use of substances other than those prescribed or required for medical reasons: No Advance Directives: No Advance Directives Information Provided: Yes service: No Current occupational status: retired Cognitive needs: Yes (cane) Hearing needs: Yes (hearing aide) Vision needs: Yes (glasses) Meds Allergies Allergy/AdvReac Type Severity Reaction Status Date / Time codeine [Codeine] Allergy Unknown NAUSEA AND Verified 02/23/23 14:56 VOMITING, nausea pregabalin Allergy Unknown Confusion Verified 02/23/23 14:56 rosuvastatin [Crestor] Allergy Unknown joint pain Verified 02/23/23 14:56 NSAIDS (Non-Steroidal Allergy Swelling Verified 02/23/23 14:56 Anti-Inflamma oxycodone [From OxyContin] Allergy Itching Verified 02/23/23 14:56 [place] Insulin Allergy Unknown severe Uncoded 01/21/23 10:36 itching tapes, adhesives, tegaderm, Allergy Unknown rash Uncoded 01/21/23 10:36 st wellbutrin Allergy Unknown rash Uncoded 01/21/23 10:36 lexapro AdvReac Severe lethargic Uncoded 01/21/23 10:36 Active Medications: Current Medications Lactated Ringer's (Lr) 1,000 mls @ 100 mls/hr IVCONT .Q10H GLENN Last Admin: 03/01/23 13:42 Dose: 100 mls/hr Home Medications Medication Instructions Recorded Confirmed Last Taken Type aspirin 81 mg tablet,delayed 81 mg PO DAILY 01/01/21 12/27/22 Unknown History release (Adult Aspirin Regimen) lorazepam 0.5 mg tablet 0.5 mg PO TID PRN ANXIETY OR SLEEP 01/01/21 12/27/22 Unknown History biotin 1 mg capsule 1 mg PO DAILY 05/17/21 12/27/22 Unknown History omega 7-csc-blv-fish oil 1,000 mg 1 cap PO DAILY 05/17/21 12/27/22 Unknown History (120 mg-180 mg) capsule (Fish Oil) blood sugar diagnostic (OneTouch #10 ea 05/27/21 09/28/22 Unknown History Ultra Test strips) levocetirizine 5 mg tablet (Xyzal) 5 mg PO DAILY 09/09/21 12/27/22 Unknown History hydroxyzine HCl 25 mg tablet 25 - 50 mg PO DAILY 12/16/21 12/27/22 Unknown History fluoxetine 10 mg capsule 10 mg PO DAILY 03/01/23 Unknown History insulin glargine 100 unit/mL (3 45 unit subcut DAILY 03/01/23 Unknown History mL) subcutaneous pen (Basaglar KwikPen U-100 Insulin) levothyroxine 125 mcg tablet 125 mcg PO DAILY@0630 03/01/23 Unknown History sucralfate 1 gram tablet 1 g PO BID@0630,1630 03/01/23 Unknown History Physical Exam 2 Vital Signs and Narrative: Vital Signs: Last Vital Signs Temp 97.7 F 03/01/23 11:24 Pulse 56 03/01/23 11:24 Resp 16 03/01/23 11:24 BP 138/56 L 03/01/23 11:24 Pulse Ox 99 03/01/23 11:24 O2 Del Method Room Air 03/01/23 11:24 BMI result Body Mass Index 27.8 Constitutional: Alert, in no acute distress. Mental Status: Oriented to person, place and time. Eyes: Pupils are equal, round, and reactive to light. Ear, Nose, and Throat: Oropharynx clear, mucous membranes moist. Ears and nose without deformities. Trachea midline. Respiratory: Clear to auscultation bilaterally. No wheezing, rales, or rhonchi. Cardiovascular: S1, S2 regular. No murmurs, rubs, or gallops. Gastrointestinal: Abdomen soft, non-tender, non-distended. Normal bowel sounds. Neurologic: Cranial nerves II-XII are grossly intact bilaterally. No focal neurological deficits. Moves all extremities spontaneously. 5/5 strngth of upper and lower extremities bilaterally Skin: Warm, dry. Musculoskeletal: No cyanosis or clubbing. Extremities: 1+ bilateral pitting edema. Psychiatric: Normal mood and affect. Results Labs 03/01/23 09:34 03/01/23 10:25 Labs: Laboratory Results - last 24 hr 03/01/23 03/01/23 03/01/23 09:34 10:25 11:27 MCV 94.1 MCH 31.4 MCHC 33.4 RDW 12.8 Plt Count 263 MPV 9.2 L Immature Gran % (Auto) Cancelled Neut % (Auto) Cancelled Lymph % (Auto) Cancelled Cedar % (Auto) Cancelled Eos % (Auto) Cancelled Baso % (Auto) Cancelled Lymph # (Auto) Cancelled [place] # (Auto) Cancelled Eos # (Auto) Cancelled Baso # (Auto) Cancelled Abs Immat Gran (auto) Cancelled Absolute Neuts (auto) Cancelled Absolute Nucleated RBC 0.000 Nucleated RBC % (auto) 0.0 Neutrophils % (Manual) 92 H Band Neutrophils % 3 Lymphocytes % (Manual) 3 L Monocytes % (Manual) 1 L Eosinophils % (Manual) 1 Abs Neuts (Manual) 13.1 H Lymphocytes # (Manual) 0.4 L Monocytes # (Manual) 0.1 Eosinophils # (Manual) 0.1 Toxic Vacuolation PRESENT Platelet Estimate NORMAL Plt Morphology Comment NORMAL RBC Morphology NOTED [place] Cells 1+ (0-2) Acanthocytes (Spur) 3+ (>5) Schistocytes 1+ (0-2) Smear Tech's Comments MANUAL DIFF Anion Gap 17 Estim Creat Clear Calc 52.6 Estimated GFR > 60 Random Glucose 215 H Lactic Acid 2.8 H* Lactic Acid F/U @ 2Hr Calcium 9.0 Magnesium 1.3 L* Total Bilirubin 0.5 Direct Bilirubin 0.2 AST 38 H ALT 27 Alkaline Phosphatase 61 Total Protein 6.6 Albumin 3.7 Lipase 61 Procalcitonin 0.02 Urine Color Yellow Urine Appearance Clear Urine pH 5.5 Ur Specific [place] 1.020 Urine Protein Negative Urine Glucose (UA) Negative Urine Ketones 40 Urine Blood Negative Urine Nitrite Negative Ur Leukocyte Esterase Trace H Urine RBC 0-2 Urine WBC 0-5 Ur Squamous Epith Cells 3-5 Urine Bacteria None Seen Hyaline Casts 3-5 Influenza Type A (PCR) NEGATIVE Influenza Type B (PCR) NEGATIVE RSV RNA Qual (PCR) NEGATIVE SARS-CoV-2 RNA (RT-PCR) NEGATIVE 03/01/23 12:33 MCV MCH MCHC RDW Plt Count MPV Immature Gran % (Auto) Neut % (Auto) Lymph % (Auto) Cedar % (Auto) Eos % (Auto) Baso % (Auto) Lymph # (Auto) [place]edar # (Auto) Eos # (Auto) Baso # (Auto) Abs Immat Gran (auto) Absolute Neuts (auto) Absolute Nucleated RBC Nucleated RBC % (auto) Neutrophils % (Manual) Band Neutrophils % Lymphocytes % (Manual) Monocytes % (Manual) Eosinophils % (Manual) Abs Neuts (Manual) Lymphocytes # (Manual) Monocytes # (Manual) Eosinophils # (Manual) Toxic Vacuolation Platelet Estimate Plt Morphology Comment RBC Morphology [place] Cells Acanthocytes (Spur) Schistocytes Smear Tech's Comments Anion Gap Estim Creat Clear Calc Estimated GFR Random Glucose Lactic Acid Lactic Acid F/U @ 2Hr 2.4 H* Calcium Magnesium Total Bilirubin Direct Bilirubin AST ALT Alkaline Phosphatase Total Protein Albumin Lipase Procalcitonin Urine Color Urine Appearance Urine pH Ur Specific [place] Urine Protein Urine Glucose (UA) Urine Ketones Urine Blood Urine Nitrite Ur Leukocyte Esterase Urine RBC Urine WBC Ur Squamous Epith Cells Urine Bacteria Hyaline Casts Influenza Type A (PCR) Influenza Type B (PCR) RSV RNA Qual (PCR) SARS-CoV-2 RNA (RT-PCR) Imaging Radiologist's Impressions: Impressions Abdomen/Pelvis CT 03/01/23 11:42 IMPRESSION: Mild colonic wall thickening likely related to lack of distention although mild colitis considered. Mild nonspecific periportal edema with a mildly lobular configuration of the liver. This can be seen in the setting of cirrhosis. Trace perihepatic ascites. Small pericholecystic fluid, but no calcific cholelithiasis appreciated. Other incidental findings as noted above. Fleischner guidelines were followed. Assessment and Plan (1) Hypomagnesemia: Status: Acute (2) Vomiting: Qualifiers: Nausea presence: with nausea Vomiting type: unspecified Qualified Code(s): R11.2 - Nausea with vomiting, unspecified Status: Acute (3) Diarrhea: Qualifiers: Diarrhea type: presumed infectious Qualified Code(s): R19.7 - Diarrhea, unspecified Status: Acute Plan Patient will be admitted to the hospital under observation for treatment and further evaluation of sudden onset nausea, vomiting, diarrhea possibly secondary to viral colitis. Nausea, vomiting, diarrhea Sudden onset since yesterday evening CT of abdomen/pelvis found mild colonic wall thickening likely related to lack of distension, though mild colitis also a possibility Likely not related to Macrobid use: pt stopped taking 4 days ago Likely viral, less likely bacterial; procalcitonin WNL, pt afebrile, leukocytosis likely reactionary Pt does not meet sepsis protocol: Leukocytosis, but no fever, tachycardia, or tachypnea Will hold on antibiotics for now Will check stool samples Will place on maintenance fluids Ondansetron prn Leg weakness Pt complains of unsteadiness of feet when attempted to ambulate in ED Reports being able to ambulate on own in house, uses cane when out in the community PT consult Lactic acidosis Lactic acid 2.8 at time of presentation Pt received IVF, repeat lactic acid down trending to 2.4 Likely secondary to nausea and vomiting, not sepsis Hypomagnesmia Mag 1.3 at time of presentation Received Mag 2g IV in ED Follow Mag Insulin dependent type 2 diabetes mellitus Sliding-scale insulin, Lantus Diabetic diet Fibromyalgia Continue gabapentin Hypothyroidism Continue levothyroxine Mood disorder Continue home meds HLD Continue statin Full Code Attending:?Dr. Galloway DVT Prophylaxis: Lovenox Patient will be admitted to the hospital under observation for treatment and further evaluation of sudden onset nausea, vomiting, diarrhea possibly secondary to viral colitis. Quality Stroke Does the patient have a stroke diagnosis?: No VTE Prior VTE?: No VTE Risk Level:: Medical - moderate - high VTE Device Contraindication: Treatment Not Indicated VTE Drug Contraindication: N/A - Med Ordered
[2023-03-01 14:31] LABS: Cancel Lactic Acid Canceled
[2023-03-01 14:37] LABS: Reflex Lactate? 2 Y
[2023-03-01] MEDS: Enoxaparin Sodium 40 MG/0.4 ML SYRINGE SUBCUT (15:58)
[2023-03-01 16:04] VITALS: BP 135/61; PULSE 64; RESP 16; TEMP 36.7; O2SAT 96
--- NOTE | 2023-03-01 16:08 | PC.NURSE ---
pt ambulated to bathroom with maximum assist. unsteady on feet/leans backward. sts she does not normally ambulate like this and normally uses a cane and ambulates on own. pt back to bed. stating she is starting to feel nauseous again.
[2023-03-01 16:54] LABS: Glucose, Whole Blood 137 mg/dL (60-115)
[2023-03-01 17:31] LABS: ~Lactic Acid-LAB USE ONLY 1.6 mmol/L (0.5-2.0)
[2023-03-01 19:59] VITALS: BMI 27.3
[2023-03-01 20:00] VITALS: BP 140/66; PULSE 61; RESP 17; TEMP 36.2; O2SAT 96
--- NOTE | 2023-03-01 20:31 | PM.EVENT ---
Event Note Date of Service: 03/01/23 Event Note: patient states she took extra medication intentionally in order to kill herself. will place order for sitter and will need care salo manzo once medically cleared if still suicidal Time Spent With Patient Time: Total time managing care of this patient today ____ minutes.
[2023-03-01 21:04] LABS: Glucose, Whole Blood 133 mg/dL (60-115)
--- NOTE | 2023-03-01 21:19 | PC.NURSE ---
pt told this nurse about SI attempt. she took many psy. meds. that's why I am sick and vomited. notified dr. Figueredo, order for 1:1 sitter. pt told me she was in the [facility] for 8 days in December 2022. 1:1 sitter's in the bedside. will continue to monitor.
[2023-03-02] MEDS: ondansetron HCL 4 MG/2 ML VIAL IVPUSH ×2 (01:20→09:56)
[2023-03-02 03:14] VITALS: BP 135/63; PULSE 65; RESP 16; TEMP 36.1; O2SAT 96
[2023-03-02 03:48] LABS: Glucose, Whole Blood 126 mg/dL (60-115)
[2023-03-02] MEDS: LORazepam 0.5 MG TABLET 0.25 MG PO ×2 (04:08→12:05)
--- NOTE | 2023-03-02 04:22 | MHC.EVENTN ---
0345- patient awakened, one assist to commode, then to recliner. sitter at bedside and alerted to room that patient feels restless. patient stating feels like jumping out of her skin . stated has not had this feeling before. ambulated in room with assistance, but very unsteady, denied, headache, pain, or feeling dizzy. she said just too restless. vitals 97.0-65-16-135/63, 96% room air skin warm and dry. blood sugar checked and results 126. Lizzette declined tv, btb, snack, fluids, back rub, wheelchair and diversional setting, heat pack etc....no no no to everything, I'm just in a bad way . Assisted to chair, to commode, to bed edge, and did not want bedside table in front of her to lean on, pushing table and declining all suggestions. hospitalist on duty alerted and order given for one time 0.25mg po Ativan which she took but complained it would make her vomit because now her nausea was back. Space given to pt with close monitoring, sitter in room at all times, tried to ask patient if she knew which pills she took to help MD, but she just brushed all that type of conversation to the side. She stated I know its was foolish and this greeting card writer tried to explain that maybe was combination of pills taken now wearing off or such. will continue to watch closely.
--- NOTE | 2023-03-02 06:22 | PC.NURSE ---
0500- PATIENT REMAINED RESTLESS BUT IMPROVED, BED TO COMMODE FREQUENTLY, THEN WHEN BTB, STATED VERY NAUSEOUS. OFFERED KIMO MARQUEZ, EXPLAINED NOT DUE YET FOR ZOFRAN BUT WOULD CONTACT HOSPITALIST. PT DENIED CHEST PAIN, PRESSURE, DIFFICULTY BREATHING. MD SUGGESTED TO SMELL INHALE, ALCOHOL SWAB SCENT, PT WAS AGREEABLE, LEFT AT BEDSIDE, SITTER AT ALL TIMES, PT FINALLY STAYED IN BED AND NAPPED BY 0545, WILL CONTINUE TO MONITOR. NOTED 0620 TO BE SLOUCHED IN BED, LYING ON HER SIDE, HOWEVER, REFUSED ASSISTANCE TO REPOSITION MULTIPLE ATTEMPTS.
[2023-03-02 06:43] LABS: Hemoglobin 13.3 g/dl (12.0-16.0); Mean Corpuscular HGB Conc 33.3 g/dl (31.0-35.0); Mean Corpuscular Hemoglobin 31.1 pg (27.0-33.0); Mean Corpuscular Volume 93.7 fL (80.0-98.0); Platelet Count 339 X10*3/uL (160-400); Red Blood Count 4.27 X10*6/uL (4.20-5.50); Red Cell Distribution Width 12.8 % (11.0-16.0); White Blood Count 12.8 X10*3/uL (4.8-10.8)
[2023-03-02 06:54] LABS: Anion Gap 14 (12-20); Blood Urea Nitrogen 17 mg/dL (9-16); Calcium 9.4 mg/dL (8.4-10.2); Carbon Dioxide 24 mmol/L (22-29); Chloride 104 mmol/L (96-108); Estimated Glomerular Filt Rate > 60; Glucose Random 152 mg/dL (60-115); Magnesium 1.9 mg/dL (1.6-2.6); Potassium 3.9 mmol/L (3.3-5.1); Sodium 138 mmol/L (135-145)
[2023-03-02 07:41] LABS: Glucose, Whole Blood 147 mg/dL (60-115)
[2023-03-02] MEDS: Insulin Glargine,Hum.rec.anlog 100 UNIT/ML 10 ML VIAL 32 UNIT SUBCUT (08:41)
[2023-03-02 09:29] VITALS: BP 135/63; PULSE 65; O2SAT 96
[2023-03-02 09:40] VITALS: BP 157/64; PULSE 69; RESP 18; TEMP 36; O2SAT 96
[2023-03-02] MEDS: Lactated Ringers 1,000 ML 100 ML IVCONT (10:36)
--- NOTE | 2023-03-02 11:17 | PC.NURSE ---
Daughter Olga called unit to speak with patient's primary nurse. Patient provided verbal permission for primary nurse to speak with daughter about patient's status and care without limitations.
[2023-03-02 11:33] LABS: Glucose, Whole Blood 147 mg/dL (60-115)
--- NOTE | 2023-03-02 11:44 | MHC.CM.PN ---
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
[2023-03-02] MEDS: Nystatin Cream 15 GM TUBE 1 APPL TOPICAL ×2 (12:05→21:58)
--- NOTE | 2023-03-02 12:12 | PHA.MEDREC ---
Pharmacy Consult ? Medication Reconciliation Pharmacy has completed the medication reconciliation. Called patients daugher and got list
[2023-03-02 14:13] VITALS: BP 157/64; PULSE 69; O2SAT 96
[2023-03-02] MEDS: Enoxaparin Sodium 40 MG/0.4 ML SYRINGE SUBCUT (15:51)
[2023-03-02 16:06] VITALS: BP 136/67; PULSE 60; RESP 18; TEMP 37.2; O2SAT 95
[2023-03-02 16:16] LABS: Glucose, Whole Blood 112 mg/dL (60-115)
--- NOTE | 2023-03-02 16:31 | MHC.CM.PN ---
IMM 03/02/23 Patient has been changed from OBS to INPT status. The patient verbalized understanding of status change.
[2023-03-02] MEDS: Sucralfate 1 GM TABLET PO (16:46)
--- NOTE | 2023-03-02 17:46 | P.PNIM_ITS ---
Subjective Subjective Date of Service: 03/02/23 Interval History: seen and examined this morning follow up for N/V and intentional OD states she has had previous suicide attempts, took 'tons' of old psych meds, but unable to provide and name, dosages or specific number of pills no abdominal pain, nausea improving Review of Systems Review of Systems: Yes all other systems are reviewed and are negative Constitutional Constitutional: Denies chills and Denies fever(s) Cardiovascular Cardiovascular: Denies chest pain, Denies palpitations and Denies dyspnea Respiratory Respiratory: Denies cough and Denies dyspnea Gastrointestinal Gastrointestinal: Denies abdominal pain, Reports nausea and Denies vomiting Endocrine Endocrine: Denies palpitations Physical Exam 2 Vital Signs: Vital Signs: Last Vital Signs Temp 99 F 03/02/23 16:06 Pulse 60 03/02/23 16:06 Resp 18 03/02/23 16:06 BP 136/67 03/02/23 16:06 Pulse Ox 95 03/02/23 16:06 O2 Del Method Room Air 03/02/23 16:06 BMI result Body Mass Index 27.3 Const: General: cooperative, comfortable, no acute distress, alert and awake Nutritional Appearance: average body habitus Orientation/consciousness: p atient oriented x3 Resp: Effort & Inspection: normal respiratory effort, able to speak in complete sentences, no respiratory distress and no use of accessory muscles GI: Inspection: No distended Palpation (GI): Soft to palpation and nontender Neuro: General: patient oriented x3, moves all extremities and CN's II-XI intact bilaterally Objective Data Active Medications Acetaminophen (Acetaminophen 325 Mg Tablet) 650 mg PO Q6H PRN PRN Reason: Pain, Mild (Pain Scale 1-3) Benzonatate (Benzonatate 100 Mg Capsule) 100 mg PO TID PRN PRN Reason: Cough Dextrose (Dextrose 50 % 25 Gm/50 Ml Syringe) 25 gm IVPUSH Q15M PRN; Protocol PRN Reason: per Hypoglycemia Standing Ord. Docusate Sodium (Docusate Sodium 100 Mg Capsule) 100 mg PO DAILY PRN PRN Reason: Constipation Enoxaparin Sodium (Enoxaparin Sodium 40 Mg/0.4 Ml Syringe) 40 mg SUBCUT Q24H [facility] Last Admin: 03/02/23 15:51 Dose: 40 mg Documented By: JULIETH Glucose (Glucose Gel 15 Gm Gel..Gram.) 15 gm PO Q15M PRN; Protocol PRN Reason: per Hypoglycemia Standing Ord. Insulin Glargine (Insulin Glargine,Hum.Rec.Anlog 100 Unit/Ml 10 Ml Vial) 32 unit SUBCUT DAILY [facility] Last Admin: 03/02/23 08:41 Dose: 32 unit Documented By: JULIETH Insulin Human Lispro (Insulin Lispro 100 Unit/Ml 3 Ml Vial) 0 unit SUBCUT QIDACHS [facility]; Protocol Last Admin: 03/02/23 16:18 Dose: Not Given Documented By: JULIETH Non-Admin Reason: No Insulin Coverage Levothyroxine Sodium (Levothyroxine Sodium 125 Mcg Tablet) 125 mcg PO DAILY@0630 [facility] Lorazepam (Lorazepam 0.5 Mg Tablet) 0.5 mg PO BID PRN PRN Reason: Anxiety Magnesium Oxide (Magnesium Oxide 400 Mg Tablet) 400 mg PO DAILY [facility] Melatonin (Melatonin 3 Mg Tablet) 6 mg PO BEDTIME PRN PRN Reason: Insomnia Non-Formulary Medication (Simvastatin) 40 mg PO BEDTIME [facility] Nystatin (Nystatin Cream 15 Gm Tube) 1 appl TOPICAL BID [facility]; Protocol Last Admin: 03/02/23 12:05 Dose: 1 appl Documented By: JULIETH Omeprazole (Omeprazole 40 Mg Capsule.Dr) 40 mg PO DAILY@0630 [facility] Ondansetron HCl (Ondansetron Hcl 4 Mg/2 Ml Vial) 4 mg IVPUSH Q8H PRN PRN Reason: Nausea and Vomiting Last Admin: 03/02/23 09:56 Dose: 4 mg Documented By: JULIETH Oxybutynin Chloride (Oxybutynin Chloride Er 5 Mg Tab.Er.24) 5 mg PO DAILY [facility] Pyridoxine HCl (Pyridoxine Hcl (Vitamin B6) 50 Mg Tablet) 100 mg PO DAILY [facility] Sodium Chloride (0.9 % Sodium Chloride Flush 3 Ml Syringe) 3 ml IVFLUSH QSHIFT [facility] Last Admin: 03/02/23 15:33 Dose: Not Given Documented By: JULIETH Non-Admin Reason: IV Running Sucralfate (Sucralfate 1 Gm Tablet) 1 gm PO BID@0630,1630 [facility] Last Admin: 03/02/23 16:46 Dose: 1 gm Documented By: JULIETH Labs 03/02/23 05:33 03/02/23 05:33 Labs: Laboratory Results - last 24 hr 03/01/23 03/02/23 03/02/23 20:58 03:42 05:33 MCV 93.7 MCH 31.1 MCHC 33.3 RDW 12.8 Plt Count 339 D MPV 9.0 L Absolute Nucleated RBC 0.000 Nucleated RBC % (auto) 0.0 Anion Gap 14 Estim Creat Clear Calc 61.0 Estimated GFR > 60 POC Glucose 133 H 126 H Random Glucose 152 H Calcium 9.4 Magnesium 1.9 03/02/23 03/02/23 03/02/23 07:03 11:27 16:07 MCV MCH MCHC RDW Plt Count MPV Absolute Nucleated RBC Nucleated RBC % (auto) Anion Gap Estim Creat Clear Calc Estimated GFR POC Glucose 147 H 147 H 112 Random Glucose Calcium Magnesium Microbiology Microbiology Results: Microbiology 03/01/23 09:34 Blood Culture - Preliminary Blood - Venous No growth after 24 hours. 03/01/23 09:34 Blood Culture - Preliminary Blood - Venous No growth after 24 hours. Assessment and Plan (1) Hypomagnesemia: Status: Acute (2) Vomiting: Status: Acute Plan Patient will be admitted to the hospital under observation for treatment and further evaluation of sudden onset nausea, vomiting, diarrhea possibly secondary to viral colitis. Nausea, vomiting, diarrhea. improving likely due to overdose vs viral gastroenteritis CT of abdomen/pelvis found mild colonic wall thickening likely related to lack of distension Likely viral, less likely bacterial; procalcitonin WNL, pt afebrile, leukocytosis likely reactionary no sepsis supportive care intentional overdose with multiple medications has had suicide attempts in the past sitter for safety care team eval for level of care Leg weakness seen by PT - rec home PT when discharged acute Lactic acidosis Lactic acid 2.8 at time of presentation resolved with IVF Likely secondary to nausea and vomiting, not sepsis Hypomagnesmia Mag 1.3 at time of presentation improved with replacement Insulin dependent type 2 diabetes mellitus Sliding-scale insulin continue lower dose of baseline Lantus Diabetic diet Fibromyalgia Continue gabapentin Hypothyroidism Continue levothyroxine Mood disorder Continue home meds HLD Continue statin Full Code Attending:?Dr. Galloway DVT Prophylaxis: Lovenox requires ongoing care for safe disposition due to intentional drug overdose Quality Stroke Does the patient have a stroke diagnosis?: No VTE Prior VTE?: No VTE Risk Level:: Medical - moderate - high VTE Device Contraindication: Treatment Not Indicated VTE Drug Contraindication: N/A - Med Ordered
--- NOTE | 2023-03-02 18:17 | PC.NURSE ---
PT seen by Care team, states she does not need to be on SI 1:1 watch. provider notified.
[2023-03-02] MEDS: LORazepam 0.5 MG TABLET PO (18:37)
[2023-03-02 18:57] VITALS: BP 131/67; PULSE 58; RESP 20; TEMP 36.6; O2SAT 96
[2023-03-02 20:09] LABS: Glucose, Whole Blood 106 mg/dL (60-115)
[2023-03-02] MEDS: 0.9 % Sodium Chloride Flush 3 ML SYRINGE IVFLUSH (21:58)
[2023-03-03 03:26] VITALS: BP 131/60; PULSE 60; RESP 18; TEMP 36.9; O2SAT 96
[2023-03-03] MEDS: Sucralfate 1 GM TABLET PO (05:34)
[2023-03-03] MEDS: Omeprazole 40 MG CAPSULE.DR PO (05:34)
[2023-03-03] MEDS: Levothyroxine Sodium 125 MCG TABLET PO (05:35)
[2023-03-03 07:17] VITALS: BP 136/65; PULSE 60; RESP 20; TEMP 36.6; O2SAT 96
[2023-03-03 07:35] LABS: Glucose, Whole Blood 110 mg/dL (60-115)
[2023-03-03] MEDS: LORazepam 0.5 MG TABLET PO ×2 (10:18→13:05)
[2023-03-03] MEDS: oxyBUTYnin chloride ER 5 MG TAB.ER.24 PO (10:18)
[2023-03-03] MEDS: Pyridoxine HCl (Vitamin B6) 50 MG TABLET 100 MG PO (10:18)
[2023-03-03] MEDS: Nystatin Cream 15 GM TUBE 1 APPL TOPICAL (10:18)
[2023-03-03] MEDS: Magnesium Oxide 400 MG TABLET PO (10:18)
[2023-03-03] MEDS: Insulin Glargine,Hum.rec.anlog 100 UNIT/ML 10 ML VIAL 32 UNIT SUBCUT (10:19)
--- NOTE | 2023-03-03 11:41 | P.CNPS_ITS ---
History of Present Illness Date of Service: 03/03/23 Chief Complaint: N/V/D,generalized weakness Requesting physician: Lis Meeks Sources of Information: patient interviewed, chart reviewed and crisis/core team assessment reviewed HPI Narrative: Patient is a 72-year-old female with history of HTN, HLD,?hypothyroidism, GERD, insulin-dependent diabetes type 2, fibromyalgia, OCD, delusions and depression, admitted for sudden onset nausea, vomiting and diarrhea following intentional overdose of psychiatric medication in a suicide attempt in the face of being off psychiatric medications. Patient medically cleared. Patient reported to crisis and care team that she is currently not suicidal anymore. Patient's daughter Allyson present and wants to take her to [facility] for psych admission, since patient has been there before, the psychiatrist there is already in communication with her outpatient psychiatrist Dr. Gamez and it is close to daughter's home. Psychiatry consulted to assess patient for safety. Patient and daughter report that overdose followed a family argument last Monday; she had no suicidal ideation prior to this event but when her daughter left the house upset, patient got worried that her daughter would never return and so wanted to end her life. She took the overdose and soon started vomiting and had diarrhea; her thus brought her to the emergency room. On the medical floor patient disclosed her overdose. Patient continues to deny any SI at all however she remains with delusional thinking Patient has decades long history of delusional thoughts, that she needs to get into [place] and that she receive signs about whether not she is on the path. Patient acknowledges this belief and has some insight that it is delusional, but vacillates. Patient maintains that the overdose was stupid and she is very regretful for; she realizes that she over-reacted and that there was never any risk that her daughter was gone for ever. Daughter recapped history and patient has been maintained on antipsychotic medication in the past however has had side effects. This past November she was hospitalized at [facility] and started on Risperdal and Prozac, doing quite well. Patient again got side effects which included leg swelling, nausea/diarrhea, GERD and she eventually stopped taking both medications around December. Patient has been declining since. Patient and her daughter both ask to go to the emergency room at [facility] for inpatient admission the there. Patient's daughter will bring her directly from this hospital to the emergency room; they have already been in contact with the inpatient psychiatrist there, who treated patient before and who is expecting her; they have also discussed this with her outpatient psychiatrist Dr. Gamez agrees with this plan and as mentioned has been in contact with this other in-patient physician regarding treatment. Past Psychiatric History: Two thousand nineteen psychiatric admission to [place] [id number] for intentional overdose suicide attempt; patient regretted attempt; express some delusional thinking at the time which is reportedly chronic. History of being on Latuda, Risperdal, Prozac Medical Evaluation Reviewed: Yes Personal & Social History: Lives with who recently was diagnosed with dementia Supportive family, daughters, including Allyson, one daughter who is present during this admission [facility] Medical History (Updated 03/03/23 @ 12:58 by Alphonso Cote MD) Schizoaffective disorder Confusion Skin rash Vitamin D deficiency HTN (hypertension) HLD (hyperlipidemia) Cellulitis of leg, left Skin excoriation Urinary urgency Encounter to establish care Arthralgia of shoulder region, left Cervical spondylitis with radiculitis Myofascial pain on left side Depression OCD (obsessive compulsive disorder) DJD (degenerative joint disease) SI (sacroiliac) joint dysfunction Fibromyalgia GERD (gastroesophageal reflux disease) Neuropathy Diabetes Surgical History History of surgery Family History: Deferred 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 Substance History: Deferred Trauma History: Deferred Diagnostics Vital Signs (24Hr): Vital Signs - 24 hr 03/02/23 14:13 03/02/23 16:06 03/02/23 18:57 Temperature 99 F 98 F Pulse Rate 69 60 58 Respiratory Rate 18 20 Blood Pressure 157/64 H 136/67 131/67 Pulse Oximetry 96 95 96 Oxygen Delivery Method Room Air Room Air 03/03/23 03:26 03/03/23 07:17 Temperature 98.4 F 97.9 F Pulse Rate 60 60 Respiratory Rate 18 20 Blood Pressure 131/60 136/65 Pulse Oximetry 96 96 Oxygen Delivery Method Room Air Room Air BMI result Body Mass Index 27.3 Labs 03/02/23 05:33 03/02/23 05:33 Labs: Laboratory Results - last 48 hr 03/01/23 03/01/23 03/01/23 12:33 13:49 16:51 WBC RBC Hgb Hct MCV MCH MCHC RDW Plt Count MPV Absolute Nucleated RBC Nucleated RBC % (auto) Sodium Potassium Chloride Carbon Dioxide Anion Gap BUN Creatinine Estim Creat Clear Calc Estimated GFR POC Glucose 149 H 137 H Random Glucose Lactic Acid F/U @ 2Hr 2.4 H* Lactic Acid F/U @ 4Hr Calcium Magnesium 03/01/23 03/01/23 03/02/23 17:12 20:58 03:42 WBC RBC Hgb Hct MCV MCH MCHC RDW Plt Count MPV Absolute Nucleated RBC Nucleated RBC % (auto) Sodium Potassium Chloride Carbon Dioxide Anion Gap BUN Creatinine Estim Creat Clear Calc Estimated GFR POC Glucose 133 H 126 H Random Glucose Lactic Acid F/U @ 2Hr Lactic Acid F/U @ 4Hr 1.6 Calcium Magnesium 03/02/23 03/02/23 03/02/23 05:33 07:03 11:27 WBC 12.8 H RBC 4.27 Hgb 13.3 Hct 40.0 MCV 93.7 MCH 31.1 MCHC 33.3 RDW 12.8 Plt Count 339 D MPV 9.0 L Absolute Nucleated RBC 0.000 Nucleated RBC % (auto) 0.0 Sodium 138 Potassium 3.9 Chloride 104 Carbon Dioxide 24 Anion Gap 14 BUN 17 H Creatinine 0.77 Estim Creat Clear Calc 61.0 Estimated GFR > 60 POC Glucose 147 H 147 H Random Glucose 152 H Lactic Acid F/U @ 2Hr Lactic Acid F/U @ 4Hr Calcium 9.4 Magnesium 1.9 03/02/23 03/02/23 03/03/23 16:07 20:01 07:20 WBC RBC Hgb Hct MCV MCH MCHC RDW Plt Count MPV Absolute Nucleated RBC Nucleated RBC % (auto) Sodium Potassium Chloride Carbon Dioxide Anion Gap BUN Creatinine Estim Creat Clear Calc Estimated GFR POC Glucose 112 106 110 Random Glucose Lactic Acid F/U @ 2Hr Lactic Acid F/U @ 4Hr Calcium Magnesium Imaging Radiology Impressions: ITS Impressions Abdomen/Pelvis CT 03/01/23 11:42 IMPRESSION: Mild colonic wall thickening likely related to lack of distention although mild colitis considered. Mild nonspecific periportal edema with a mildly lobular configuration of the liver. This can be seen in the setting of cirrhosis. Trace perihepatic ascites. Small pericholecystic fluid, but no calcific cholelithiasis appreciated. Other incidental findings as noted above. Fleischner guidelines were followed. Mental Status Exam Mental Status Exam Narrative: Pt is alert and oriented; behavior is cooperative, friendly and calm; patient is not in distress; dressed in hospital attire with unkempt hair but adequate hygiene; mood is described as not so good and affect a little anxious; eye contact appropriate; Speech is normal rate, volume and prosody and not pressured; no psychomotor agitation/retardation present; thought process is organized and goal directed; Thought content is on tx but also with chronic delusional thoughts;; otherwise pertinent to relevant topics; denies any SI/HI. There is no evidence of perceptual disturbance, no AVH but ideas of reference. Patients insight and judgment impaired but improved and adequate. Medications Medications Current Medications Acetaminophen (Acetaminophen 325 Mg Tablet) 650 mg PO Q6H PRN PRN Reason: Pain, Mild (Pain Scale 1-3) Benzonatate (Benzonatate 100 Mg Capsule) 100 mg PO TID PRN PRN Reason: Cough Dextrose (Dextrose 50 % 25 Gm/50 Ml Syringe) 25 gm IVPUSH Q15M PRN; Protocol PRN Reason: per Hypoglycemia Standing Ord. Docusate Sodium (Docusate Sodium 100 Mg Capsule) 100 mg PO DAILY PRN PRN Reason: Constipation Enoxaparin Sodium (Enoxaparin Sodium 40 Mg/0.4 Ml Syringe) 40 mg SUBCUT Q24H [facility] Last Admin: 03/02/23 15:51 Dose: 40 mg Glucose (Glucose Gel 15 Gm Gel..Gram.) 15 gm PO Q15M PRN; Protocol PRN Reason: per Hypoglycemia Standing Ord. Insulin Glargine (Insulin Glargine,Hum.Rec.Anlog 100 Unit/Ml 10 Ml Vial) 32 unit SUBCUT DAILY [facility] Last Admin: 03/03/23 10:19 Dose: 32 unit Insulin Human Lispro (Insulin Lispro 100 Unit/Ml 3 Ml Vial) 0 unit SUBCUT QIDACHS [facility]; Protocol Last Admin: 03/03/23 08:10 Dose: Not Given Levothyroxine Sodium (Levothyroxine Sodium 125 Mcg Tablet) 125 mcg PO DAILY@0630 [facility] Last Admin: 03/03/23 05:35 Dose: 125 mcg Lorazepam (Lorazepam 0.5 Mg Tablet) 0.5 mg PO BID PRN PRN Reason: Anxiety Last Admin: 03/03/23 10:18 Dose: 0.5 mg Magnesium Oxide (Magnesium Oxide 400 Mg Tablet) 400 mg PO DAILY [facility] Last Admin: 03/03/23 10:18 Dose: 400 mg Melatonin (Melatonin 3 Mg Tablet) 6 mg PO BEDTIME PRN PRN Reason: Insomnia Non-Formulary Medication (Simvastatin) 40 mg PO BEDTIME [facility] Nystatin (Nystatin Cream 15 Gm Tube) 1 appl TOPICAL BID [facility]; Protocol Last Admin: 03/03/23 10:18 Dose: 1 appl Omeprazole (Omeprazole 40 Mg Capsule.Dr) 40 mg PO DAILY@0630 [facility] Last Admin: 03/03/23 05:34 Dose: 40 mg Ondansetron HCl (Ondansetron Hcl 4 Mg/2 Ml Vial) 4 mg IVPUSH Q8H PRN PRN Reason: Nausea and Vomiting Last Admin: 03/02/23 09:56 Dose: 4 mg Oxybutynin Chloride (Oxybutynin Chloride Er 5 Mg Tab.Er.24) 5 mg PO DAILY [facility] Last Admin: 03/03/23 10:18 Dose: 5 mg Pyridoxine HCl (Pyridoxine Hcl (Vitamin B6) 50 Mg Tablet) 100 mg PO DAILY [facility] Last Admin: 03/03/23 10:18 Dose: 100 mg Sodium Chloride (0.9 % Sodium Chloride Flush 3 Ml Syringe) [facility] Admin: 03/03/23 08:11 Dose: Not Given Sucralfate (Sucralfate 1 Gm Tablet) 1 gm PO BID@0630,1630 [facility] Last Admin: 03/03/23 05:34 Dose: 1 gm Allergies Allergies Allergy/AdvReac Type Severity Reaction Status Date / Time codeine [Codeine] Allergy Unknown NAUSEA AND Verified 02/23/23 14:56 VOMITING, nausea pregabalin Allergy Unknown Confusion Verified 02/23/23 14:56 rosuvastatin [Crestor] Allergy Unknown joint pain Verified 02/23/23 14:56 NSAIDS (Non-Steroidal Allergy Swelling Verified 02/23/23 14:56 Anti-Inflamma oxycodone [From OxyContin] Allergy Itching Verified 02/23/23 14:56 [place] Insulin Allergy Unknown severe Uncoded 01/21/23 10:36 itching tapes, adhesives, tegaderm, Allergy Unknown rash Uncoded 01/21/23 10:36 st wellbutrin Allergy Unknown rash Uncoded 01/21/23 10:36 lexapro AdvReac Severe lethargic Uncoded 01/21/23 10:36 Assessment & Plan Assessment & Plan (1) Schizoaffective disorder: Status: Acute Code(s): F25.9 - Schizoaffective disorder, unspecified Plan HPI: Patient is a 72-year-old female with history of HTN, HLD,?hypothyroidism, GERD, insulin-dependent diabetes type 2, fibromyalgia, OCD, delusions and depression, admitted for sudden onset nausea, vomiting and diarrhea following intentional overdose of psychiatric medication in a suicide attempt in the face of being off psychiatric medications. Patient medically cleared. Patient reported to crisis and care team that she is currently not suicidal anymore. Patient's daughter Allyson present and wants to take her to [facility] for psych admission, since patient has been there before, the psychiatrist there is already in communication with her outpatient psychiatrist Dr. Gamez and it is close to daughter's home. Psychiatry consulted to assess patient for safety. Patient and daughter report that overdose followed a family argument last Monday; she had no suicidal ideation prior to this event but when her daughter left the house upset, patient got worried that her daughter would never return and so wanted to end her life. She took the overdose and soon started vomiting and had diarrhea; her thus brought her to the emergency room. On the medical floor patient disclosed her overdose. Patient continues to deny any SI at all however she remains with delusional thinking Patient has decades long history of delusional thoughts, that she needs to get into the [place] and that she receive signs about whether not she is on the path. Patient acknowledges this belief and has some insight that it is delusional, but vacillates. Patient maintains that the overdose was stupid and she is very regretful for; she realizes that she over-reacted and that there was never any risk that her daughter was gone for ever. Daughter recapped history and patient has been maintained on antipsychotic medication in the past however has had side effects. This past November she was hospitalized at [facility] and started on Risperdal and Prozac, doing quite well. Patient again got side effects which included leg swelling, nausea/diarrhea, GERD and she eventually stopped taking both medications around December. Patient has been declining since. Patient and her daughter both ask to go to the emergency room at [facility] for inpatient admission the there. Patient's daughter will bring her directly from this hospital to the emergency room; they have already been in contact with the inpatient psychiatrist there, who treated patient before and who is expecting her; they have also discussed this with her outpatient psychiatrist Dr. Gamez agrees with this plan and as mentioned has been in contact with this other in-patient physician regarding treatment. IMPRESSION: Patient has long history of mental illness, likely schizoaffective disorder as well as OCD, moderately well treated with medications when medications are tolerated; last suicide attempt was in 2019. It seems like this suicide attempt was impulsive and due to patient being off medication; no SI prior to this event and patient denies any current SI, saying it remains fully resolved. She is delusional however and off medication and remains vulnerable to decompensation if she is not restarted on affective medication. Patient has remained in good behavioral and impulse control; she agrees with this plan of going inpatient and going to the emergency room at [facility]. Senior Advisory agrees however that patient is not in imminent risk for harm to self or others and it is appropriate to allow her daugther to transport her to this other hospital. Senior Advisory agrees that patient is likely better suited for treatment at [facility] since they already know her history, are coordinating with her current outpatient psychiatrist and since patient is comfortable there. It is close to her daughter home who is involved in patient's treatment and will be bringing her straight to the emergency room from this admission. Plan: Agree with plan for discharge from [facility] and for daughter to bring her to emergency room at [facility] Total time managing care of this patient today ____ minutes. Patient educated on: diagnosis, medication risk/benefits, therapeutic strategies and medical condition Informed Consent: understands and further education needed
[2023-03-03 11:44] LABS: Glucose, Whole Blood 143 mg/dL (60-115)
--- NOTE | 2023-03-03 12:30 | MHC.CARE ---
Pt seen by CARE team and for psych consult by Dr. Alphonso Cote, pt is cleared to be discharged.
--- NOTE | 2023-03-03 12:40 | P.DS_ITS ---
DS: Providers Provider Date of Service: 03/03/23 Date of admission: 03/02/23 16:16 Date of discharge: 03/03/23 Primary care physician: Jaye Otrega MD Consults: 03/01/23 20:31 Consult for Sitter Routine Reason for consultation: suicidal ideation 03/02/23 12:52 Consult to Care Team Routine Comment: Reason for consultation: intentional OD; eval level of care; medically cleared 03/03/23 10:35 Consult to Psychiatry Routine Consulting Provider: Psych Covering Reason for consultation: intentional overdose Has provider been notified: No Attending physician on discharge: Jay Galloway Discharging clinician: Lis Meeks DS: Diagnosis Discharge Diagnosis (1) Hypomagnesemia: Status: Acute (2) Vomiting: Status: Acute (3) Overdose: Status: Acute DS: Summary Hospital Course Hospital Course: From H&P on the day of admission Pt is a 72-year-old female with a PMH significant for HTN, HLD,?hypothyroidism, GERD, insulin-dependent diabetes type 2, fibromyalgia, depression, and OCD who presents to the ED with?sudden onset nausea, vomiting, and diarrhea starting last evening. Patient is unable to further specify exactly when symptoms occurred or if there were precipitating events. Patient is alert and oriented x4, though a poor historian. Patient denies hematemesis, hematochezia, melena. No abdominal pain. Denies any sick contacts or eating anything that seemed undercooked, foul, or spoiled. Denies chest pain/pressure, palpitations. No shortness of breath. Denies any sick contacts. Pt also complains of generalized weakness and unsteadiness on feet in the ED. Reports legs feel weak and that they will give out . States she is able to ambulate on her own in her home and with a cane while in the community. Pt lives at home with her . Of note, pt was started on Macrobid for possible UTI on 02/23. Pt said it made her stomach feel upset and she stopped taking it after two days. In the ED pt was afebrile, with pulse in the 50s, and respiratory rate it M0 with slightly soft BP as low as 125/54, satting at 99% on RA. Labs were significant for leukocytosis of 13.8, lactic acid 2.8 with repeat 2.4, magnesium 1.3, AST 38. Stable H&H of 13.9/41.6. Procalcitonin WNL at 0.02. UA negative for UTI. Negative for influenza type a and B, RSV, COVID. CT?of abdomen and pelvis found mild colonic wall thickening likely related to lack of distension although mild colitis a possibility. Also found possible cirrhosis with trace perihepatic ascites and small pericholecystic fluid. EKG demonstrated sinus bradycardia with rate of 52, nonspecific T-wave abnormality in V1 and V2, with QTc of 461. Pt was treated with IVF, Mag sulfate, and ondansetron. Patient will be admitted to the hospital under observation for treatment and further evaluation of sudden onset nausea, vomiting, diarrhea possibly secondary to viral colitis Patient initially admitted due to nausea and vomiting. Patient later revealed that she had intentionally taken multiple of her old psychiatric medications in an effort to end her life. She now regrets that decision. This was the likely cause of her nausea and vomiting which has now resolved and she is tolerating a full diet. She was evaluated by the care team who recommended a psychiatry consult. Patient was evaluated by Psychiatry and the plan was discussed in detail with her daughter at the bedside. Patient's daughter prefers to take her to [facility] for evaluation there and possible inpatient psychiatric care at their facility where she has been inpatient before and she has a psychiatrist who knows her. It is also closer to her daughter's home and therefore will be easier for her to provide family support. The patient is not currently suicidal and per the psych team poses no imminent risk to herself. They are comfortable with the plan for her daughter to transport the patient directly to the ED at [facility] upon discharge from this facility. Time Attestation Discharge coordination time: Greater than 30 minutes Quality: Safe Use of Opioids Does Pt have an Active Cancer Diagnosis on the Problem List?: No Quality: Stroke Does the patient have a stroke diagnosis?: No Physical Exam Vital Signs: Vital Signs: Last Vital Signs Temp 97.9 F 03/03/23 07:17 Pulse 60 03/03/23 07:17 Resp 20 03/03/23 07:17 BP 136/65 03/03/23 07:17 Pulse Ox 96 03/03/23 07:17 O2 Del Method Room Air 03/03/23 07:17 BMI result Body Mass Index 27.3 Const: General: cooperative, comfortable, no acute distress, alert and awake Nutritional Appearance: average body habitus Orientation/consciousness: patient oriented x3 Resp: Effort & Inspection: normal respiratory effort, able to speak in complete sentences, no respiratory distress and no use of accessory muscles Cardio: Rate: regular rate Heart sounds: S1 normal heart sound present and S2 normal heart sound present GI: Palpation (GI): Soft to palpation and nontender Neuro: General: patient oriented x3, moves all extremities and CN's II-XI intact bilaterally Extrem: General: Yes no pedal edema DS: Data Data Completed and Pending Labs on day of discharge: Laboratory Results - last 24 hr 03/02/23 03/02/23 03/03/23 16:07 20:01 07:20 POC Glucose 112 106 110 03/03/23 11:36 POC Glucose 143 H Preliminary micro results at discharge 03/01/23 09:34 Blood Culture - Preliminary Blood - Venous No growth after 48 hours. 03/01/23 09:34 Blood Culture - Preliminary Blood - Venous No growth after 48 hours. Discharge Plan Discharge Anticipated Discharge Date/Time: 03/03/23 12:51 Patient Disposition: Home, Self-Care Discharge Diagnosis: Intentional Overdose vomiting low potassium, low magnesium Referrals: Jaye Ortega MD [Primary Care Provider] - 1 Week Discharge Medications: Continued omeprazole 40 mg capsule,delayed release(DR/EC) 40 mg PO DAILY Qty: 90 0RF gabapentin 400 mg capsule 400 mg PO TID 30 Days Qty: 90 1RF simvastatin 40 mg tablet 40 mg PO BEDTIME Qty: 90 0RF magnesium oxide 400 mg (241.3 mg magnesium) tablet 400 mg PO DAILY Qty: 30 0RF oxybutynin chloride 5 mg tablet extended release 24hr 5 mg PO DAILY 14 Days Qty: 14 0RF sucralfate 1 gram tablet 1 g PO BID@0630,1630 Rx Instructions: TAKE ON EMPTY STOMACH levothyroxine 125 mcg tablet 125 mcg PO DAILY@0630 insulin glargine [Basaglar KwikPen U-100 Insulin] 100 unit/mL (3 mL) insulin pen 45 unit subcut DAILY diclofenac sodium 50 mg tablet,delayed release (DR/EC) 50 mg PO BID PRN (Reason: Pain) hydroxyzine HCl 25 mg tablet 50 mg PO DAILY PRN (Reason: Itching) lorazepam 0.5 mg tablet 0.5 - 1 mg PO BID PRN (Reason: ANXIETY OR SLEEP) aspirin [Adult Aspirin Regimen] 81 mg tablet,delayed release (DR/EC) 81 mg PO BEDTIME biotin 1 mg capsule 1 mg PO DAILY omega 8-ahs-ebz-fish oil [Fish Oil] 1,000 mg (120 mg-180 mg) capsule 1 cap PO DAILY levocetirizine [Xyzal] 5 mg tablet 5 mg PO DAILY pyridoxine (vitamin B6) 100 mg tablet 100 mg PO DAILY 90 Days Qty: 90 3RF No Action (DME) OneTouch Ultra Test Strip See Rx Instructions .Route Qty: 100 2RF Rx Instructions: check BS 2-3x/day (DME) OneTouch Ultra Test Strip See Rx Instructions Not Applicable TID Qty: 10 Rx Instructions: As directed Discharge Orders: Discharge Order (Routine); Ordered 03/03/23 Ordered By: Lis Meeks Activity on Discharge: As tolerated Stand Alone Forms: Patient Portal Discharge page Care Plan Goals: see below Health Concerns: intentional drug overdose nausea and vomiting low potassium, low magnesium Plan of Treatment: plan for family transport directly to [facility] for evaluation and possible inpatient psych admission there as per family preference. no active suicidal ideation Assessment: see discharge summary
--- NOTE | 2023-03-03 13:03 | MHC.CM.PN ---
pt dcd home no skilled servies ordered
== END 2023-03-03 13:19 | disposition short-term general hospital (02) | DRG 918 ==
LOC: HO.ED 13:23 → HO.EDOVER 15:23 → HO.S3 18:09
PROVIDERS: Internal Medicine; Admitting Provider Student in an Organized Health Care Education/Training Program; Emergency Provider Emergency Medicine; PCP Hospitalist; Visit Provider Physician Assistant Medical
DX: T50.912A Poisoning by multiple unspecified drugs, medicaments and biological substances, intentional self-harm, initial encounter (principal); E87.20 Acidosis, unspecified; E83.42 Hypomagnesemia; F42.9 Obsessive-compulsive disorder, unspecified; M79.7 Fibromyalgia; E03.9 Hypothyroidism, unspecified; Z20.822 Contact with and (suspected) exposure to COVID-19; Z79.4 Long term (current) use of insulin; Z79.82 Long term (current) use of aspirin; Z79.890 Hormone replacement therapy; Z79.899 Other long term (current) drug therapy
CPT/HCPCS: 0241U; 36415; 74177; 80048; 80076; 81001; 82947; 83605; 83690; 83735; 84145; 85007; 85025; 85027; 87040; 93005; 97116; 97162; 99221; 99285; J1650; J2405; J3475; J7120; Q9967; S9485

== ENCOUNTER → 2023-03-01 15:14 | Outpatient (BNV) | payer MEDICARE, OTHER, SELFPAY | PROVIDERS: Admitting Provider Student in an Organized Health Care Education/Training Program; Emergency Provider Emergency Medicine; PCP Hospitalist; Visit Provider Internal Medicine | DX: E83.42 Hypomagnesemia (principal); R11.2 Nausea with vomiting, unspecified; T50.901A Poisoning by unspecified drugs, medicaments and biological substances, accidental (unintentional), initial encounter | CPT/HCPCS: 99222; 99232; 99239; 99499 ==

== ENCOUNTER → 2023-03-02 16:16 | Outpatient (BNV) | payer MEDICARE, OTHER, SELFPAY | PROVIDERS: Admitting Provider Student in an Organized Health Care Education/Training Program; Emergency Provider Emergency Medicine; PCP Hospitalist; Visit Provider Psychiatry & Neurology Psychiatry | DX: F25.1 Schizoaffective disorder, depressive type (principal) | CPT/HCPCS: 99222 ==

== ENCOUNTER 2023-03-03 12:55 | Outpatient (REF) | payer SELFPAY | END 2023-03-03 12:56 | disposition home or self-care (01) | LOC: HO.HAP 12:55 | PROVIDERS: Visit Provider Hospitalist | DX: Z46.1 Encounter for fitting and adjustment of hearing aid (principal); H90.3 Sensorineural hearing loss, bilateral | CPT/HCPCS: V5267 ==

== ENCOUNTER 2023-03-30 14:20 | Outpatient (REF) | payer SELFPAY ==
--- NOTE | 2023-03-31 11:01 | MHC.AU.HA3 ---
Hearing Instrument Follow-Up- Binaural Date of Visit: 03/30/23 Right Ear: Make, Model, Color, Serial Number: Federica Mercer [id number] SN: [id number] Color: Silver [employer]pe [employer] Teacher Repair Warranty: 11/19/2023 [employer] Teacher Loss and Damage Warranty: 11/19/2023 [facility] Service Plan: 11/19/2023 Battery Size: 13 Stone And Concrete Washer/Slim Tube: #2 UP Earmold/Dome/CShell/SlimTip:Skeleton c-shell SN: [id number] Zoey: 04/24/2023 Type of Wax Guard: CeruStop Dispensed By: [facility] Date of Fittin09/04/2020 Left Ear: Make, Model, Color, Serial Number: Federica Mercer [id number] SN: [id number] Color: Silver [employer] Teacher Repair Warranty: 11/19/2023 [employer] Teacher Loss and Damage Warranty: 11/19/2023 [facility] Service Plan: 11/19/2023 Battery Size: 13 [employer] And Concrete Washer/Slim Tube: #2 UP Earmold/Dome/CShell/SlimTip: Skeleton c-shell SN: [id number] Zoey: 05/18/2023 OLD MOLD SN: [id number] Zoey: 09/06/2022 Type of Wax Guard: CeruStop Dispensed By: [facility] Date of Fittin09/04/2020 Follow-Up Summary: 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 She reports it fits much better. She brought up concerns about her right c-shell not feeling snug in her lb, noting that it will pop out on occasion. She would like a remake of the right c-shell while it is still under remake warranty. Impression taken without incident. Non occluding cerumen noted. Sending new impression and c-shell to [employer]. Lizzette left with her old left c-shell and her right hearing aid in a box. Recommendations: Recommendations: Patient will be contacted when materials have arrived. Diagnosis Code(s): Primary Diagnosis: H90.3 Bilateral Sensorineural Hearing Loss Signature: Provider: Sallie Baca, [facility]
== END 2023-03-30 14:21 | disposition home or self-care (01) ==
LOC: HO.HAP 14:20
PROVIDERS: Visit Provider Hospitalist
DX: Z13.89 Encounter for screening for other disorder (principal)

== ENCOUNTER 2023-04-20 09:14 | Outpatient (REF) | payer SELFPAY ==
--- NOTE | 2023-04-20 13:33 | MHC.AU.HA3 ---
Hearing Instrument Follow-Up- Binaural Date of Visit: 04/20/23 Right Ear: Make, Model, Color, Serial Number: Federica Mercer [id number] SN: [id number] Color: Silver Sharpe Branch Account Manager Repair Warranty: 11/19/2023 Branch Account Manager Loss and Damage Warranty: 11/19/2023 [facility] Service Plan: 11/19/2023 Battery Size: 13 Oil Refiner/Slim Tube: #2 UP Earmold/Dome/CShell/SlimTip:Skeleton c-shell SN: [id number] Zoey: 07/23/2023 Type of Wax Guard: CeruStop Dispensed By: [facility] Date of Fittin09/04/2020 Left Ear: Make, Model, Color, Serial Number: Federica Mercer [id number] SN: [id number] Color: Silver Sharpe Branch Account Manager Repair Warranty: 11/19/2023 Branch Account Manager Loss and Damage Warranty: 11/19/2023 [facility] Service Plan: 11/19/2023 Battery Size: 13 Oil Refiner/Slim Tube: #2 UP Earmold/Dome/CShell/SlimTip: Skeleton c-shell SN: [id number] Zoey: 05/18/2023 OLD MOLD SN: [id number] Zoey: 09/06/2022 Type of Wax Guard: CeruStop Dispensed By: [facility] Date of Fittin09/04/2020 Follow-Up Summary: Here to strip picker remake right c-shell. Fit looks good and patient reports comfort and feels like it is more secure in the ear than the previous mold. She notes that the remake left c-shell that she picked up at her last visit fits better, but continues to work itself out of her throughout the course of a day, would like to try again for a snugger fit while that is still under remake warranty. New impression taken left without incidence. Recommendations: Recommendations: Patient will be contacted when materials have arrived. Diagnosis Code(s): Primary Diagnosis: H90.3 Bilateral Sensorineural Hearing Loss Signature: Provider: Sallie Javier, CCC-A
== END 2023-04-20 09:15 | disposition home or self-care (01) ==
LOC: HO.HAP 09:14
PROVIDERS: Visit Provider Internal Medicine
DX: Z13.89 Encounter for screening for other disorder (principal)

== ENCOUNTER 2023-05-04 10:31 | Outpatient (REF) | payer SELFPAY ==
--- NOTE | 2023-05-04 10:54 | MHC.AU.HA3 ---
Hearing Instrument Follow-Up- Binaural Date of Visit: 05/04/23 Right Ear: Make, Model, Color, Serial Number: Federica Mercer [id number] SN: [id number] Color: Silver Sharpe Inbound Sales Advisor Repair Warranty: 11/19/2023 Inbound Sales Advisor Loss and Damage Warranty: 11/19/2023 [facility] Service Plan: 11/19/2023 Battery Size: 13 Home Appliances Mechanic/Slim Tube: #2 UP Earmold/Dome/CShell/SlimTip:Skeleton c-shell SN: [id number] Zoey: 07/23/2023 Type of Wax Guard: CeruStop Dispensed By: [facility] Date of Fittin09/04/2020 Left Ear: Make, Model, Color, Serial Number: Federica Mercer P90-13T SN: [id number] Color: Silver Sharpe Inbound Sales Advisor Repair Warranty: 11/19/2023 Inbound Sales Advisor Loss and Damage Warranty: 11/19/2023 [facility] Service Plan: 11/19/2023 Battery Size: 13 Home Appliances Mechanic/Slim Tube: #2 UP Earmold/Dome/CShell/SlimTip: Skeleton c-shell SN: [id number] Zoey: 05/18/2023 OLD MOLD SN: [id number] Zoey: 09/06/2022 Type of Wax Guard: CeruStop Dispensed By: [facility] Date of Fittin09/04/2020 Follow-Up Summary: Dispensed remake left c-shell. Fit looks good. Good subjective comfort and benefit reported. Lizzette also reports that the recently remade right c-shell is fitting well. Recommendations: Recommendations: Hearing instrument follow-up or maintenance as needed. Please contact our clinic with any questions or concerns. Diagnosis Code(s): Primary Diagnosis: H90.3 Bilateral Sensorineural Hearing Loss Signature: Provider: Sallie Javier, [facility]
== END 2023-05-04 10:32 | disposition home or self-care (01) ==
LOC: HO.HAP 10:31
PROVIDERS: Visit Provider Internal Medicine
DX: Z13.89 Encounter for screening for other disorder (principal)

== ENCOUNTER 2023-06-19 09:48 | Outpatient (REF) | payer MEDICARE, OTHER, SELFPAY ==
--- NOTE | ~2023-06-19 | XR_ITS ---
EXAMINATION: XR KNEE AP STANDING CLINICAL INFORMATION: Osteoarthritis. COMPARISON: Right knee radiographs dated 07/31/2014. TECHNIQUE: AP bilateral standing view of the knees was obtained. FINDINGS: Bony alignment and mineralization are normal. There is mild to moderate narrowing of the bilateral medial joint space compartments, with peripheral osteophyte formation. There is peripheral osteophyte formation of the right lateral joint space compartment. There is mild chondrocalcinosis. No focal soft tissue swelling, gas or foreign body is seen. XR/XR knee standing BI IMPRESSION: 1. There is mild to moderate osteoarthritic change of the medial joint space compartments of the bilateral knees, and there is mild osteoarthritic change of the lateral joint space compartment of the right knee. 2. There is chondrocalcinosis, which can be associated with CPPD, gout or hypercalcinosis.
--- NOTE | ~2023-06-19 | XR_ITS ---
EXAMINATION: XR SHOULDER, LEFT CLINICAL INFORMATION: Pain. COMPARISON: None available. TECHNIQUE: AP external rotation, Grashey, scapular Y, and axillary views of the left shoulder. FINDINGS: Bony alignment and mineralization are normal. There is bony demineralization. There is marked osteoarthritic change of the left glenohumeral joint, with joint space narrowing and peripheral osteophyte formation. The acromioclavicular interval is normal. There is widening of the coracoclavicular interval to 1.5 cm. There is a distal acromial undersurface osteophyte, and there is cortical irregularity of the greater tuberosity of the proximal left humerus. There is mild calcific tendinitis of the left rotator cuff insertion. No fracture or dislocation is seen. There is no foreign body. No left pneumothorax is seen. XR/XR shoulder LT min 2V IMPRESSION: 1. There is marked osteoarthritic change of the left glenohumeral joint. 2. There is widening of the left coracoclavicular interval, suggesting a separation injury of indeterminate chronicity. 3. Findings are consistent with left rotator cuff impingement and calcific tendinitis.
== END 2023-06-19 09:49 | disposition home or self-care (01) ==
LOC: HO.XRAY 09:48
PROVIDERS: PCP Internal Medicine; Visit Provider Internal Medicine
DX: M25.512 Pain in left shoulder (principal); M17.9 Osteoarthritis of knee, unspecified; M54.2 Cervicalgia; Z79.899 Other long term (current) drug therapy
CPT/HCPCS: 73030; 73565; 99212

== ENCOUNTER 2023-06-19 09:48 | Outpatient (AMB) | payer MEDICARE, OTHER, SELFPAY ==
--- NOTE | 2023-06-19 10:14 | MHC.OFFVIS ---
Intake Vital Signs 06/19/23 10:16 Height 5 ft 1 in Weight 160 lb BMI 30.2 BP 139/63 Blood Pressure Location Lt brachial Position Sitting Respiration 12 Pulse 95 Pulse Source Pulse Oximeter Pulse Oximetry (%) 97 Oxygen Delivery Method Room Air Intake Visit Reasons: Follow Up W/ Pain Allergies codeine [Codeine] Allergy (Unknown, Verified 06/19/23 10:17) NAUSEA AND VOMITING, nausea pregabalin Allergy (Unknown, Verified 06/19/23 10:17) Confusion rosuvastatin [Crestor] Allergy (Unknown, Verified 06/19/23 10:17) joint pain NSAIDS (Non-Steroidal Anti-Inflamma Allergy (Verified 06/19/23 10:17) Swelling oxycodone [From OxyContin] Allergy (Verified 06/19/23 10:17) Itching [place] Insulin Allergy (Unknown, Uncoded 06/19/23 10:17) severe itching tapes, adhesives, tegaderm, st Allergy (Unknown, Uncoded 06/19/23 10:17) rash wellbutrin Allergy (Unknown, Uncoded 06/19/23 10:17) rash lexapro Adverse Reaction (Severe, Uncoded 06/19/23 10:17) lethargic Medication List - Last Reconciled 06/19/23 by Aliyah Lopez LPN aspirin (Adult Aspirin Regimen) 81 mg PO BEDTIME biotin 1 mg PO DAILY blood sugar diagnostic (OneTouch Ultra Test strips) check BS 2-3x/day blood sugar diagnostic (OneTouch Ultra Test strips) As directed diclofenac sodium 75 mg PO BID gabapentin 400 mg PO TID 30 days hydroxyzine HCl 50 mg PO DAILY PRN insulin glargine (Basaglar KwikPen U-100 Insulin) 45 units subcut DAILY levocetirizine (Xyzal) 5 mg PO DAILY levothyroxine 125 mcg PO DAILY@0630 lorazepam 0.5 - 1 mg PO BID PRN magnesium oxide 400 mg PO DAILY omega 8-qwo-jit-fish oil 1,000 mg (120 mg-180 mg) (Fish Oil) 1 cap PO DAILY omeprazole 40 mg PO DAILY pyridoxine (vitamin B6) 100 mg PO DAILY 90 days simvastatin 40 mg PO BEDTIME HPI Follow Up W/ Pain HPI Details 73-year-old female who presents today to the office for a follow-up. She reports left-sided shoulder pain that radiates down to the arm and up to the neck. She has a limited ROM. She had three nodules removed from her shoulder. She also reports right knee pain. She also reports buckling of the right knee. The pain is affecting her daily activities. She had an x-ray of the shoulder several years ago. She was recommended shoulder replacement surgery in the past. She suspects that there may be some adhesions. She has arthritis in her hands and fingers. She also reports weakness and dropping things from her hand. She is using Tylenol every eight hours and Voltaren 75 BID. She is also taking gabapentin for neuropathy. The patient has been doing acupuncture for the past two years, with good results. She lives with her . Her has dementia, and she is the sole caregiver. Her daughter lives 1.5 hours away, but she visits them periodically.? COUNTS INCLUDE 234 BEDS AT THE [facility] Medical History (Updated 06/19/23 @ 10:46 by Nato Mckeon MD) Schizoaffective disorder Confusion Skin rash Vitamin D deficiency HTN (hypertension) HLD (hyperlipidemia) Cellulitis of leg, left Skin excoriation Urinary urgency Encounter to establish care Arthralgia of shoulder region, left Cervical spondylitis with radiculitis Myofascial pain on left side Depression OCD (obsessive compulsive disorder) DJD (degenerative joint disease) SI (sacroiliac) joint dysfunction Fibromyalgia GERD (gastroesophageal reflux disease) Neuropathy Diabetes Surgical History History of surgery Family History Father No problems noted. Mother No problems noted. Social History Household Members: Spouse Household Members Other:: 1 Housing: House Do you presently have visiting nurse or other home services: No Alcohol intake: former Comment: SI 1:1 Patient Tobacco Use Status: Never used Tobacco Tobacco use type: Cigarette e-Cigarette/Vaping Use: Never Used Second Hand Smoke Exposure: No service: No Current occupational status: retired Cognitive needs: Yes (cane) Hearing needs: Yes (hearing aide) Vision needs: Yes (glasses) Review of Systems Const All systems reviewed & are unremarkable except as noted in HPI and below Physical Exam Vital Signs: Last Vital Signs Pulse 95 06/19/23 10:16 Resp 12 06/19/23 10:16 BP 139/63 06/19/23 10:16 Pulse Ox 97 06/19/23 10:16 Oxygen Delivery Method Room Air 06/19/23 10:16 BMI result Body Mass Index 30.2 General: Appears afebrile. Alert and oriented. Mood and affect appropriate. Follows and participates in conversation appropriately. Respiratory effort is unlabored. Able to transition from sit to stand unassisted. Ambulates with bilaterally normal heel strike and toe off. Results Reviewed Results Reviewed: No imaging is available for review. Assessment & Plan Assessment & Plan (1) Arthralgia of shoulder region, left: Code(s): M25.512 - Pain in left shoulder (2) Knee osteoarthritis: Code(s): M17.9 - Osteoarthritis of knee, unspecified Plan Recommend plain films of the shoulders and knees to assess the status of her osteoarthritis at this time. She will return to clinic for a Kenalog injection to the left shoulder under ultrasound guidance. We will likely target the glenohumeral space based on the x-ray results. May benefit from dural an injection to the knees in the future either via orthopedic or us as appropriate. Agree with continuing acupuncture for cervical radicular pain going down her upper extremities. She does have significant foraminal stenoses as well as a history of hand weakness related symptoms. I discussed surgical decompression as an option for cervical foraminal stenosis. She is not interested in surgical intervention at this time. Scribed for Dr. Mckeon by Stefan Barksdale, medical oncology physician, on 06/19/2023. I, Dr. Mckeon, have personally reviewed and agree with the information entered by the scribe. Orders: Orders XR knee standing BI Today M17.9 - Osteoarthritis of knee, unspecified XR shoulder LT min 2V Today M25.512 - Pain in left shoulder Coding Level of Care Code Est Pt Level 4 (90146) Diagnoses Arthralgia of shoulder region, left M25.512 Knee osteoarthritis M17.9
[2023-06-19 10:16] VITALS: BP 139/63; PULSE 95; RESP 12; O2SAT 97; BMI 30.2
== END 2023-06-19 10:51 | disposition home or self-care (01) ==
PROVIDERS: PCP Internal Medicine; Visit Provider Internal Medicine
DX: M25.512 Pain in left shoulder (principal); M17.9 Osteoarthritis of knee, unspecified
CPT/HCPCS: 99214

== ENCOUNTER 2023-06-26 10:00 | Outpatient (AMB) | payer MEDICARE, OTHER, SELFPAY ==
--- NOTE | 2023-06-26 10:12 | A.OFFVIS_ITS ---
Intake Vital Signs 06/26/23 10:14 Height 5 ft 1 in Weight 160 lb BMI 30.2 BP 145/85 H Blood Pressure Location Lt brachial Position Sitting Respiration 12 Pulse 95 Pulse Source Pulse Oximeter Pulse Oximetry (%) 96 Oxygen Delivery Method Room Air Intake Visit Reasons: LEFT SHOULDER INJECTION Allergies codeine [Codeine] Allergy (Unknown, Verified 06/26/23 10:16) NAUSEA AND VOMITING, nausea pregabalin Allergy (Unknown, Verified 06/26/23 10:16) Confusion rosuvastatin [Crestor] Allergy (Unknown, Verified 06/26/23 10:16) joint pain NSAIDS (Non-Steroidal Anti-Inflamma Allergy (Verified 06/26/23 10:16) Swelling oxycodone [From OxyContin] Allergy (Verified 06/26/23 10:16) Itching [place] Insulin Allergy (Unknown, Uncoded 06/26/23 10:16) severe itching tapes, adhesives, tegaderm, st Allergy (Unknown, Uncoded 06/26/23 10:16) rash wellbutrin Allergy (Unknown, Uncoded 06/26/23 10:16) rash lexapro Adverse Reaction (Severe, Uncoded 06/26/23 10:16) lethargic Medication List - Last Reconciled 06/26/23 by Aliyah Lopez LPN aspirin (Adult Aspirin Regimen) 81 mg PO BEDTIME biotin 1 mg PO DAILY blood sugar diagnostic (OneTouch Ultra Test strips) check BS 2-3x/day blood sugar diagnostic (OneTouch Ultra Test strips) As directed diclofenac sodium 75 mg PO BID gabapentin 400 mg PO TID 30 days hydroxyzine HCl 50 mg PO DAILY PRN insulin glargine (Basaglar KwikPen U-100 Insulin) 45 units subcut DAILY levocetirizine (Xyzal) 5 mg PO DAILY levothyroxine 125 mcg PO DAILY@0630 lorazepam 0.5 - 1 mg PO BID PRN magnesium oxide 400 mg PO DAILY omega 1-wus-bpe-fish oil 1,000 mg (120 mg-180 mg) (Fish Oil) 1 cap PO DAILY omeprazole 40 mg PO DAILY pyridoxine (vitamin B6) 100 mg PO DAILY 90 days simvastatin 40 mg PO BEDTIME HPI LEFT SHOULDER INJECTION HPI Details 73-year-old female who presents today to the office for a left shoulder injection. Denies any recent cough, cold, infection, fever or other significant changes in medical history since last office visit. [facility] Medical History (Updated 07/04/23 @ 16:39 by Nato Mckeon MD) Schizoaffective disorder Confusion Skin rash Vitamin D deficiency HTN (hypertension) HLD (hyperlipidemia) Cellulitis of leg, left Skin excoriation Urinary urgency Encounter to establish care Arthralgia of shoulder region, left Cervical spondylitis with radiculitis Myofascial pain on left side Depression OCD (obsessive compulsive disorder) DJD (degenerative joint disease) SI (sacroiliac) joint dysfunction Fibromyalgia GERD (gastroesophageal reflux disease) Neuropathy Diabetes Surgical History History of surgery Family History Father No problems noted. Mother No problems noted. Social History Household Members: Spouse Household Members Other:: 1 Housing: House Do you presently have visiting nurse or other home services: No Alcohol intake: former Comment: SI 1:1 Patient Tobacco Use Status: Never used Tobacco Tobacco use type: Cigarette e-Cigarette/Vaping Use: Never Used Second Hand Smoke Exposure: No service: No Current occupational status: retired Cognitive needs: Yes (cane) Hearing needs: Yes (hearing aide) Vision needs: Yes (glasses) Review of Systems Const All systems reviewed & are unremarkable except as noted in HPI and below Physical Exam Vital Signs: Last Vital Signs Pulse 95 06/26/23 10:14 Resp 12 06/26/23 10:14 BP 145/85 H 06/26/23 10:14 Pulse Ox 96 06/26/23 10:14 Oxygen Delivery Method Room Air 06/26/23 10:14 BMI result Body Mass Index 30.2 General: Appears afebrile. Alert and oriented. Mood and affect appropriate. Follows and participates in conversation appropriately. Respiratory effort is unlabored. Able to transition from sit to stand unassisted. Ambulates with bilaterally normal heel strike and toe off. Office Procedures Joint Injection/Drain Joint Injection/Drain Details: Left glenohumeral joint injection, ultrasound guidance Primary Site: left shoulder Prep: site was prepped using aseptic technique and site was prepped using sterile technique Injected: 40 mg of, Kenalog, with 1 mL of, with 4 mL of (ropivacaine 0.25%), 1% plain lidocaine and in the joint Approach Used: posterolateral Coding Details: An ultrasound image of the injection was taken and stored in the permanent record. - Glenohumeral with ultrasound guidance (left) Procedure code (CPT) selection complete Results Reviewed Results Reviewed: No imaging is available for review. Assessment & Plan Assessment & Plan (1) Knee osteoarthritis: Code(s): M17.9 - Osteoarthritis of knee, unspecified (2) Osteoarthritis of shoulders, bilateral: Code(s): M19.011 - Primary osteoarthritis, right shoulder; M19.012 - Primary osteoarthritis, left shoulder Plan Patient is status post left glenohumeral injection, ultrasound guidance. Patient tolerated procedure well and was discharged home in stable condition with discharge instructions. All questions were answered. We will file PA for right knee hyaluronic acid injection. Discussed the risks a nd benefits of the procedure with the patient in detail. All questions were answered. The patient is on board with the plan. Justification for interventional therapy: ? Patient with average pain > 6/10 ? Patient has exhausted conservative therapy including physical therapy, acupuncture, and corticosteroid injections. ? Patient unable to tolerate physical therapy due to pain. . Patient has a good understanding of their pain condition and has appropriate mental and social support Scribed for Dr. Mckeon by Stefan Barksdale, medical office specialist, on 06/26/2023. I, Dr. Mckeon, have personally reviewed and agree with the information entered by the scribe. Coding Level of Care Code Est Pt Level 3 (65276) Diagnoses Knee osteoarthritis M17.9 Osteoarthritis of shoulders, bilateral M19.011; M19.012 CPT Codes Coding - Joint 8: - Glenohumeral with ultrasound guidance ([id number])
[2023-06-26 10:14] VITALS: BP 145/85; PULSE 95; RESP 12; O2SAT 96; BMI 30.2
== END 2023-06-26 10:38 | disposition home or self-care (01) ==
PROVIDERS: PCP Internal Medicine; Visit Provider Internal Medicine
DX: M19.012 Primary osteoarthritis, left shoulder (principal)
CPT/HCPCS: 20611

== ENCOUNTER → 2023-06-26 10:00 | Outpatient (BNVA) | payer MEDICARE, OTHER, SELFPAY | PROVIDERS: PCP Internal Medicine; Visit Provider Internal Medicine | DX: M17.9 Osteoarthritis of knee, unspecified (principal); M19.011 Primary osteoarthritis, right shoulder; M19.012 Primary osteoarthritis, left shoulder | CPT/HCPCS: 20611; J2795; J3301 ==

== ENCOUNTER 2023-07-06 06:38 | Outpatient (REF) | payer MEDICARE, OTHER, SELFPAY ==
--- NOTE | ~2023-07-06 | FL_ITS ---
EXAMINATION: XR FLUOROSCOPY WITH IMAGES CLINICAL INFORMATION: Right knee osteoarthritis. COMPARISON: Radiographs dated 06/19/2023. TECHNIQUE: Fluoroscopy Supervised By: Dr. Nato Mckeon. Fluoroscopy Time: 0.0 minutes. Cumulative Dose: 0.118 mGy. DAP: [id number] mGym2. Images: 2. FINDINGS: The submitted frontal and lateral views of the knee show an injection needle with tip situated towards the anteromedial aspect of the intercondylar region. There is injected contrast within the joint space. FL/FL guidance in treatment room IMPRESSION: Intraoperative fluoroscopic guidance is provided during right knee pain management procedure. Please see the patient's Operative Report for full procedural details.
== END 2023-07-06 06:39 | disposition home or self-care (01) ==
LOC: CF 06:38
PROVIDERS: Visit Provider Internal Medicine
DX: M17.11 Unilateral primary osteoarthritis, right knee (principal)
CPT/HCPCS: 20610; Q9967

== ENCOUNTER 2023-07-06 12:24 | Outpatient (AMB) | payer MEDICARE, OTHER, SELFPAY ==
--- NOTE | 2023-07-06 12:40 | MHC.OFFVIS ---
Vital Signs 07/06/23 13:07 07/06/23 13:08 Height 5 ft 1 in Weight 160 lb BMI 30.2 BP 130/76 128/74 Blood Pressure Location Lt brachial Lt brachial Position Sitting Sitting Respiration 16 18 Pulse 90 88 Pulse Source Pulse Oximeter Pulse Oximeter Pulse Oximetry (%) 99 96 Oxygen Delivery Method Room Air Room Air Comment Pre-Op Post-Op Intake Visit Reasons: right knee durolane inj Allergies codeine [Codeine] Allergy (Unknown, Verified 06/26/23 10:16) NAUSEA AND VOMITING, nausea pregabalin Allergy (Unknown, Verified 06/26/23 10:16) Confusion rosuvastatin [Crestor] Allergy (Unknown, Verified 06/26/23 10:16) joint pain NSAIDS (Non-Steroidal Anti-Inflamma Allergy (Verified 06/26/23 10:16) Swelling oxycodone [From OxyContin] Allergy (Verified 06/26/23 10:16) Itching [place] Insulin Allergy (Unknown, Uncoded 06/26/23 10:16) severe itching tapes, adhesives, tegaderm, st Allergy (Unknown, Uncoded 06/26/23 10:16) rash wellbutrin Allergy (Unknown, Uncoded 06/26/23 10:16) rash lexapro Adverse Reaction (Severe, Uncoded 06/26/23 10:16) lethargic HPI HPI right knee durolane inj: Details: Patient presents for scheduled procedure. Denies any recent cough, cold, infection, fever or other significant changes in medical history since last office visit. [facility] Medical History (Updated 07/04/23 @ 16:39 by Nato Mckeon MD) Schizoaffective disorder Confusion Skin rash Vitamin D deficiency HTN (hypertension) HLD (hyperlipidemia) Cellulitis of leg, left Skin excoriation Urinary urgency Encounter to establish care Arthralgia of shoulder region, left Cervical spondylitis with radiculitis Myofascial pain on left side Depression OCD (obsessive compulsive disorder) DJD (degenerative joint disease) SI (sacroiliac) joint dysfunction Fibromyalgia GERD (gastroesophageal reflux disease) Neuropathy Diabetes Surgical History History of surgery Family History Father No problems noted. Mother No problems noted. Social History Household Members: Spouse Household Members Other:: 1 Housing: House Do you presently have visiting nurse or other home services: No Alcohol intake: former Comment: SI 1:1 Patient Tobacco Use Status: Never used Tobacco Tobacco use type: Cigarette e-Cigarette/Vaping Use: Never Used Second Hand Smoke Exposure: No service: No Current occupational status: retired Cognitive needs: Yes (cane) Hearing needs: Yes (hearing aide) Vision needs: Yes (glasses) Physical Exam Vital Signs: Last Vital Signs Pulse 88 07/06/23 13:08 Resp 18 07/06/23 13:08 BP 128/74 07/06/23 13:08 Pulse Ox 96 07/06/23 13:08 Oxygen Delivery Method Room Air 07/06/23 13:08 BMI result Body Mass Index 30.2 Office Procedures Joint Injection/Drain Joint Injection/Drain Details: The knee was visualized using fluoroscopy. A 25 gauge needle was advanced intra-articularly under fluoroscopy and placement was confirmed with Omnipaque 1-2 cc 180 milligrams/mL. Following intra-articular confirmation, the prepackaged Durolane syringe containing 3 mL hyaluronic acid was retrieved and administered to the joint. The patient tolerated the procedure well. Durolane Lot # [id number] Exp Date 12/01/2025 Coding 47603 - Large joint Additional procedure code (CPT) needed Assessment & Plan Assessment & Plan (1) Knee osteoarthritis: Code(s): M17.9 - Osteoarthritis of knee, unspecified Category: Medical Plan Patient is status post right knee durolane injection under fluoroscopy. Patient tolerated procedure well and was discharged home in stable condition with discharge instructions. All questions were answered. We will follow-up via telephone or in clinic to assess response to therapy. A follow-up appointment was made during today's visit. Orders: Orders FL guidance in treatment room 07/06/23 M17.9 - Osteoarthritis of knee, unspecified
[2023-07-06 13:07] VITALS: BP 130/76; PULSE 90; RESP 16; O2SAT 99; BMI 30.2
[2023-07-06 13:08] VITALS: BP 128/74; PULSE 88; RESP 18; O2SAT 96
== END 2023-07-06 13:09 | disposition home or self-care (01) ==
LOC: HO.PMCPRC 12:25
PROVIDERS: PCP Internal Medicine; Visit Provider Internal Medicine
DX: M17.11 Unilateral primary osteoarthritis, right knee (principal)
CPT/HCPCS: 20610; 77002

== ENCOUNTER 2023-08-14 08:42 | Outpatient (REF) | payer MEDICARE, OTHER, SELFPAY ==
--- NOTE | 2023-08-14 09:31 | MHC.AU.HA3 ---
Hearing Instrument Follow-Up- Binaural Date of Visit: 08/14/23 Right Ear: Make, Model, Color, Serial Number: Federica Mercer [id number] SN: [id number] Color: Silver Sharpe [employer]ator Repair Warranty: 11/19/2023 Predatory Animal Exterminator Loss and Damage Warranty: 11/19/2023 [facility] Service Plan: 11/19/2023 Battery Size: 13 Contractor Field Hauling/Slim Tube: #2 UP Earmold/Dome/CShell/SlimTip:Skeleton c-shell SN: [id number] Zoey: 07/23/2023 Type of Wax Guard: CeruStop Dispensed By: [facility] Date of Fittin09/04/2020 Left Ear: Make, Model, Color, Serial Number: Federica Mercer [id number] SN: [id number] Color: Silver Sharpe Predatory Animal Exterminator Repair Warranty: 11/19/2023 Predatory Animal Exterminator Loss and Damage Warranty: 11/19/2023 [facility] Service Plan: 11/19/2023 Battery Size: 13 Contractor Field Hauling/Slim Tube: #2 UP Earmold/Dome/CShell/SlimTip: Skeleton c-shell SN: [id number] Zoey: 05/18/2023 OLD MOLD SN: [id number] Zoey: 09/06/2022 Type of Wax Guard: CeruStop Dispensed By: [facility] Date of Fittin09/04/2020 Follow-Up Summary: Here for evaluation. Reports need to turn aids up two clicks daily. Cleaned and checked aids and molds, changed wax guards, listening check positive. Increased overall gain 2 steps. Good subjective benefit reported. Recommendations: Recommendations: Hearing instrument follow-up or maintenance as needed. Diagnosis Code(s): Primary Diagnosis: H90.3 Bilateral Sensorineural Hearing Loss Signature: Provider: Sallie Javier, [facility]
== END 2023-08-14 08:43 | disposition home or self-care (01) ==
LOC: HO.SH 08:42
PROVIDERS: Visit Provider Hospitalist
DX: Z01.118 Encounter for examination of ears and hearing with other abnormal findings (principal); H90.3 Sensorineural hearing loss, bilateral
CPT/HCPCS: 92552; 92556

== ENCOUNTER 2023-08-14 09:27 | Outpatient (REF) | payer SELFPAY | END 2023-08-14 09:28 | disposition home or self-care (01) | LOC: HO.HAP 09:27 | PROVIDERS: Visit Provider Hospitalist | DX: H90.3 Sensorineural hearing loss, bilateral (principal); Z46.1 Encounter for fitting and adjustment of hearing aid | CPT/HCPCS: V5267 ==

== ENCOUNTER 2023-10-30 10:40 | Outpatient (AMB) | payer MEDICARE, OTHER, SELFPAY ==
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
[2023-10-30 10:46] VITALS: BP 128/88; PULSE 77; RESP 14; O2SAT 97; BMI 30.2
== END 2023-10-30 11:18 | disposition home or self-care (01) ==
LOC: HO.PMC 10:41
PROVIDERS: PCP Internal Medicine; Visit Provider Internal Medicine
DX: M48.02 Spinal stenosis, cervical region (principal)
CPT/HCPCS: 99213

== ENCOUNTER → 2023-10-30 10:40 | Outpatient (BNVA) | payer MEDICARE, OTHER, SELFPAY | PROVIDERS: PCP Internal Medicine; Visit Provider Internal Medicine | DX: M48.02 Spinal stenosis, cervical region (principal); M46.92 Unspecified inflammatory spondylopathy, cervical region; M54.12 Radiculopathy, cervical region; R20.2 Paresthesia of skin | CPT/HCPCS: 99212 ==

== ENCOUNTER 2023-12-15 13:40 | Outpatient (REF) | payer MEDICARE, OTHER, SELFPAY ==
--- NOTE | ~2023-12-15 | US_ITS ---
EXAMINATION: US RETROPERITONEAL COMPLETE (RENAL) CLINICAL INFORMATION: Cyst of kidney, acquired. Feeling of incomplete bladder emptying. COMPARISON: CT abdomen and pelvis 03/01/2023. Ultrasound renal 12/12/2022. Ultrasound abdomen 04/26/2022. TECHNIQUE: Real-time imaging of the kidneys and bladder. FINDINGS: RIGHT KIDNEY: 10.2 x 4.3 x 5.2 cm (SAG x AP x TRV). The kidney is normal in size, contour, and echogenicity. Renal cortical thickness is normal. There is an echogenic lower pole 3 mm focus seen with twinkle artifact consistent with a nonobstructing calculus. Some other smaller echogenic foci are seen. No hydronephrosis. Multiple benign Bosniak class I renal cysts as well as a Bosniak class II cysts are noted, the largest measuring 2.1 cm which has some mural calcification which require no additional imaging or follow-up. No solid renal masses are seen. LEFT KIDNEY: 9.2 x 4.8 x 4.8 cm (SAG x AP x TRV). The kidney is normal in size, contour, and echogenicity. Renal cortical thickness is normal. There is a lower pole echogenic 3 mm focus seen with twinkle artifact consistent with a nonobstructing stone. No hydronephrosis. A benign upper pole 4.6 cm Bosniak class I renal cyst is noted which requires no additional imaging or follow up. No solid renal masses are seen. BLADDER: Well distended and normal. Bilateral ureteral jets are demonstrated. Prevoid bladder volume is 219 mL. Postvoid bladder volume is 7 mL. ADDITIONAL FINDINGS: Multiple punctate calcified foci are seen in the uterus consistent with small fibroids with similar calcifications seen on the 2022 CT scan. US/US retroperitoneal comp IMPRESSION: 1. Bilateral nonobstructing renal calculi. Should be noted that on the 03/01/2023 CT scan, no calculi could be seen. 2. Bilateral Bosniak class I renal cysts which need no further imaging or follow up. Electronically signed by: Damien Katz MD 12/20/2023 05:04 PM EDT
== END 2023-12-15 13:41 | disposition home or self-care (01) ==
LOC: HO.HMGCX 13:40
PROVIDERS: PCP Hospitalist; Visit Provider Nurse Practitioner Family
DX: N28.1 Cyst of kidney, acquired (principal); N20.0 Calculus of kidney; R39.14 Feeling of incomplete bladder emptying
CPT/HCPCS: 76770

== ENCOUNTER 2023-12-16 10:48 | Outpatient (REF) | payer MEDICARE, OTHER, SELFPAY ==
--- NOTE | ~2023-12-16 | MR_ITS ---
EXAMINATION: MR CERVICAL SPINE WITHOUT CONTRAST CLINICAL INFORMATION: Unspecified inflammatory spondylopathy, cervical region. 73-year-old female complaining of tingling in both arms, hand cramping, and mid neck pain. History of compression deformities C4-C6. COMPARISON: 01/07/2021. TECHNIQUE: Multiplanar multisequence MR imaging of the cervical spine was done prior to and without the administration IV gadolinium. Examination was performed on a 1.5 Sonja Siemens unit, using standard sequences. FINDINGS: CORONAL ALIGNMENT: -Trace levoconvex scoliosis, possibly positional. SAGITTAL ALIGNMENT: -Straightening of the normal lordosis with a mild reversal centered at C5. -There is a 2 mm degenerative anterolisthesis of C3 on C4. -There is a 4 mm degenerative anterolisthesis of C4 on C5, and a compensatory 3 mm retrolisthesis of C5 on C6. -There is a 3 mm degenerative anterolisthesis of C7 on T1, and T1 on T2. -Above findings appear stable. CRANIOCERVICAL JUNCTION/C1-2 ARTICULATIONS: -Intact and aligned. -Moderate degenerative arthropathy with T2 hypointense pannus formation surrounding the dens, and mildly narrowing the craniocervical junction. Arthropathy in the lateral mass articulations of C1 with C2. VERTEBRAL BODIES/BONE MARROW: -Loss of vertebral body height of C5 and C6, stable. -Mild superior endplate concavities T1-T2, new from prior. No significant loss of height. -Mild edematous endplate changes present at C5-C6, and C6-C7. There are superimposed fatty type endplate changes. -No abnormal infiltrating bone marrow signal. -There are scattered Schmorl's nodes within the endplates. DISCS: -Severe loss of disc height and signal at C4-5 with disc vacuum phenomenon. -Moderate to severe loss of height and signal at C5-6 and C6-7, as well as C7-T1 and T1-T2. -Mild loss of disc signal without loss of disc height C2-3, C3-4, T1-T2, T3-4. -Above findings have mildly progressed from the prior examination. CERVICAL CORD: -Normal in signal throughout. -Mild flattening at C5-6 and C6-7 as discussed below. Caliber is otherwise normal. PARAVERTEBRAL SOFT TISSUES: -Retropharyngeal course of both CCAs and both ICAs. -No paravertebral or paraspinous edema. -Thyroid is obscured by a saturation band. VISUALIZED INTRACRANIAL STRUCTURES: -Mild nonspecific T2 hyperintensities in both cerebellar hemispheres, and the midbrain, most likely small vessel ischemic change. Normal pituitary gland. Preserved flow voids in both vertebral arteries. AXIAL DISC SPACE IMAGING: C2-C3: Moderate left facet hypertrophic arthropathy. No central canal or neural foraminal stenosis. No change. C3-C4: Broad-based disc osteophytic ridge complex, asymmetrically prominent to the right within the right lateral recess and contiguous with bilateral uncinate spurring right greater than left. This indents upon the ventral thecal sac but does not contact the cord or result in significant lateral recess or central stenosis. Severe right and moderate left hypertrophic facet changes are present, with the findings resulting in severe right and moderate to severe left neural foraminal stenosis. No significant change. C4-C5: Anterolisthesis with uncovering of the disc. There is a diffuse disc osteophytic extrusion, symmetrically extending into both lateral and foraminal zones, with the right lateral annular fissuring, and contiguous with severe bilateral uncinate spurring. There are mild to moderate bilateral hypertrophic facet changes. There is minimal right anterior column flattening of the cord without cord impingement present, and preserved CSF posterior to the cord. This had a similar appearance previously. There is mild to moderate right greater than left lateral recess stenosis, and severe bilateral neural foraminal stenosis. Findings appear stable. C5-C6: Retrolisthesis at this level. There is a diffuse disc osteophytic extrusion extending asymmetrically into both foraminal zones and lateral recesses, and contiguous with bilateral severe uncinate spurring. This indents upon the ventral thecal sac, appears to contact and mildly flatten the left ventral aspect of the cord, without cord impingement. There appears to be a thin sliver of CSF remaining posterior to the cord. There are mild to moderate left greater than right degenerative facet changes. There is moderate to severe bilateral lateral recess stenosis, and severe bilateral neural foraminal stenosis. Findings of mildly worsened at this level. C6-C7: There is a diffuse disc osteophytic extrusion, symmetrically involving both lateral and foraminal zones, with associated right lateral annular fissuring. This is contiguous with bilateral uncinate spurring which is severe. There are mild degenerative facet changes bilaterally, with a combination of findings resulting in moderate central canal stenosis without definite cord impingement. A thin sliver of CSF remains surrounding the cord, however there is mild flattening of the right ventral aspect of the cord. No abnormal cord signal. There is moderate right greater than left lateral recess stenosis, and severe bilateral neural foraminal impingement. Findings appear mildly worsened at this level. C7-T1: There is mild disc uncovering from anterolisthesis, a diffuse disc osteophytic extrusion extending into both foraminal zones and contiguous with left greater than right uncinate spurring. Moderate bilateral hypertrophic facet changes, with mild central canal stenosis, mild right greater than left subarticular recess stenosis, and moderate to severe bilateral neural foraminal stenosis. Findings have worsened mildly at this level. T1-T2: There is a worsening right 1 anterolisthesis with disc uncovering, and a diffuse shallow disc osteophytic bulge with a superimposed osteophytic protrusion in the right far lateral and extending into the right foraminal zone. There are severe degenerative hypertrophic facet changes and significant posterior ligamentous thickening/calcification. There is mild flattening of the left ventral aspect of the cord, with minimal impingement of the left aspect of the cord. No abnormal cord signal. There is severe right and [id number] left neural foraminal stenosis. Findings have significantly worsened at this level. T2-T3: Only seen sagittally, there is a right lateral disc osteophytic extrusion which appears to contact the right lateral aspect of the cord with mild associated flattening and possible minimal impingement. There are bilateral right greater than left facet hypertrophic changes, with combination of findings resulting in moderate right neural foraminal stenosis. The left neural foramen is patent. T3-T4: Right lateral and foraminal extrusion of disc material, minimally flattening the right far lateral aspect of the cord. This is only seen sagittally. No cord impingement. Mild right neural foraminal narrowing. MR/MR cervical spine wo con IMPRESSION: 1. Multilevel advanced cervical spondylosis, progressing at C5-6, C6-C7, C7-T1, and T1-T2. 2. Stable findings at C2-3 through C4-5. 3. Possible minimal left lateral cord impingement at C5-6, right lateral cord at C6-7, left lateral cord at T1-T2, and right lateral cord at T2-T3. See above for details. 4. Multilevel foraminal stenosis, severe severe right at C3-4, severe bilateral at C4-5, severe bilateral at C5-6, severe bilateral at C6-7, and severe right at T1-T2. There is moderate to severe bilateral at C7-T1. 5. Mild loss of height of C5 and C6 superior endplates, old, with minimal superior endplate concavity of T1 and T2, new from prior. 6. Edematous endplate changes present C5-6 and C6-7. 7. Worsening mild subluxations as discussed. 8. See the body the report for further details. Electronically signed by: Pete Luo MD 01/05/2024 10:10 AM EDT
== END 2023-12-16 10:49 | disposition home or self-care (01) ==
LOC: HO.MRI 10:48
PROVIDERS: PCP Hospitalist; Visit Provider Internal Medicine
DX: M46.92 Unspecified inflammatory spondylopathy, cervical region (principal); M54.12 Radiculopathy, cervical region; M48.02 Spinal stenosis, cervical region
CPT/HCPCS: 72141

== ENCOUNTER → 2023-12-16 10:53 | Outpatient (BNV) | payer MEDICARE, OTHER, SELFPAY | PROVIDERS: PCP Hospitalist; Visit Provider Radiology Diagnostic Radiology | DX: M46.92 Unspecified inflammatory spondylopathy, cervical region (principal) | CPT/HCPCS: 72141 ==

== ENCOUNTER 2023-12-28 13:05 | Outpatient (AMB) | payer MEDICARE, OTHER, SELFPAY ==
--- NOTE | 2023-12-28 13:24 | A.OFFVIS_ITS ---
Intake Visit Reasons: 1y/US(set) Intake Note: Patient presents today for follow up on: renal cyst, renal stone, and ultrasound results Imaging Completed: 12/15/23 Urology Medications: Vitamin B6 Blood Thinner: aspirin Sales Recruitment Specialist Required: No Accompanied by: Self / Same As Patient Allergies codeine [Codeine] Allergy (Unknown, Verified 12/28/23 13:38) NAUSEA AND VOMITING, nausea pregabalin Allergy (Unknown, Verified 12/28/23 13:38) Confusion rosuvastatin [Crestor] Allergy (Unknown, Verified 12/28/23 13:38) joint pain NSAIDS (Non-Steroidal Anti-Inflamma Allergy (Verified 12/28/23 13:38) Swelling oxycodone [From OxyContin] Allergy (Verified 12/28/23 13:38) Itching [place] Insulin Allergy (Unknown, Uncoded 12/28/23 13:38) severe itching tapes, adhesives, tegaderm, st Allergy (Unknown, Uncoded 12/28/23 13:38) rash wellbutrin Allergy (Unknown, Uncoded 12/28/23 13:38) rash lexapro Adverse Reaction (Severe, Uncoded 12/28/23 13:38) lethargic Medication List - Last Reconciled 12/28/23 by ANGELINA Noel aspirin (Adult Aspirin Regimen) 81 mg PO BEDTIME biotin 1 mg PO DAILY blood sugar diagnostic (OneTouch Ultra Test strips) check BS 2-3x/day blood sugar diagnostic (OneTouch Ultra Test strips) As directed bupropion HCl SR 100 mg PO QAM diclofenac sodium 75 mg PO BID docusate sodium (Colace) 100 mg PO DAILY PRN duloxetine 60 mg PO DAILY gabapentin 400 mg PO TID 30 days insulin glargine (Basaglar KwikPen U-100 Insulin) 45 units subcut DAILY levocetirizine (Xyzal) 5 mg PO DAILY levothyroxine 125 mcg PO DAILY@0630 lorazepam 0.5 - 1 mg PO BID PRN lurasidone 20 mg PO DAILY magnesium oxide 400 mg PO DAILY omega 7-pcb-ddl-fish oil 1,000 mg (120 mg-180 mg) (Fish Oil) 1 cap PO DAILY omeprazole 40 mg PO DAILY pyridoxine (vitamin B6) 100 mg PO DAILY 90 days simvastatin 40 mg PO BEDTIME HPI Comments Details: Lizzette is a pleasant 73-year-old female patient of Dr. Meza. She has a past medical history of vitamin-D deficiency, hypertension, hyperlipidemia, cervical spondylitis, depression, OCD, degenerative joint disease, fibromyalgia, GERD, neuropathy, and diabetes. She presents to the office today for a follow up of her nephrolithiasis, renal cysts, and nocturia. In discussion with the patient today she reports to be doing and feeling well. She reports since her last office visit here she has had no bothersome urinary issues or concerns. Recent retroperitoneal imaging results reviewed with the patient today. Bilateral kidneys with no hydronephrosis. Bilateral Bosniak class 1 and 2 cysts are noted that require no follow-up imaging per radiology report. Bilateral 3 mm nonobstructing calculi. The bladder is well distended and normal. Bladder jets are demonstrated. Pre void bladder volume is approximately 220 mL. Postvoid bladder volume is approximately 10 mL. She does report nocturia however does not find this bothersome and does not wish to undergo further treatment options at this time. She otherwise denies urinary urgency, urinary frequency, incontinence, hematuria, dysuria, foul smelling urine, changes to urinary stream, flank pain, fever, and or chills. She denies any bothersome urinary issues or concerns at this time. In office urinalysis results reviewed with the patient today. She does report worsening arthritic issues in his following up with pain management here at [facility]. She otherwise offers no other issues or concerns at this time. FORMERLY [facility] Medical History Schizoaffective disorder Confusion Skin rash Vitamin D deficiency HTN (hypertension) HLD (hyperlipidemia) Cellulitis of leg, left Skin excoriation Urinary urgency Encounter to establish care Arthralgia of shoulder region, left Cervical spondylitis with radiculitis Myofascial pain on left side Depression OCD (obsessive compulsive disorder) DJD (degenerative joint disease) SI (sacroiliac) joint dysfunction Fibromyalgia GERD (gastroesophageal reflux disease) Neuropathy Diabetes Surgical History History of surgery Family History Father No problems noted. Mother No problems noted. Social History Household Members: Spouse Household Members Other:: 1 Housing: House Do you presently have visiting nurse or other home services: No Alcohol intake: former Comment: SI 1:1 Patient Tobacco Use Status: Never used Tobacco Tobacco use type: Cigarette e-Cigarette/Vaping Use: Never Used Second Hand Smoke Exposure: No service: No Current occupational status: retired Cognitive needs: Yes (cane) Hearing needs: Yes (hearing aide) Vision needs: Yes (glasses) Review of Systems Eyes Reports no additional complaints ENT Details: patient with hearing impairment Card Reports as per HPI GI Reports as per HPI Reports as per HPI Musc Reports as per HPI Neuro Reports as per HPI Psych Reports as per HPI Physical Exam Const General: cooperative, comfortable, no acute distress, well developed, alert and awake Orientation/consciousness: patient oriented x3 Limitations: ambulation with walker HEENT Other: Bilateral hearing aids Head: Yes normal to inspection, Yes normocephalic and Yes atraumatic Ears: hearing grossly normal bilaterally Eyes General: appearance normal, both eyes and all related structures Neck Neck: Yes normal visual inspection and Yes trachea midline Chest Chest palpation & inspection: normal inspection of the chest Resp Effort & Inspection: normal respiratory effort and able to speak in complete sentences Cardio Rate: regular rate GI Inspection: Yes normal to inspection General: Yes no CVA tenderness Back/Spine/Pelvis Back: no CVA tenderness Skin General skin exam: no rashes or lesions noted Neuro General: patient oriented x3 Extrem General: Yes normal to inspection Psych Appearance: grossly normal and well kempt Mental Status: mental status grossly normal Speech and movement: Normal speech and movement present and Clear speech present Affect: normal affect Thought process: Normal thought process present Thought content: Normal thought content present Insight: Good insight present (Psych) Judgement: Good judgement present (Psych) Results AMB Urinalysis, Automated UA Leukoctes 15 Margareth/uL Last Edit by Manjula Machado on 12/28/23 13:44 UA Nitrite Last Edit by Manjula Machado on 12/28/23 13:44 UA Urobilinogen 0.2 mg/dL Last Edit by Manjula Machado on 12/28/23 13:44 UA Protein 15 mg/dL Last Edit by Manjula Machado on 12/28/23 13:44 UA pH 5.5 Last Edit by Manjula Machado on 12/28/23 13:44 UA Blood 0 Cleve/uL Last Edit by Manjula Machado on 12/28/23 13:44 UA Specific [place] 1.025 Last Edit by Manjula Machado on 12/28/23 13:44 UA Ketone Last Edit by Manjula Machado on 12/28/23 13:44 UA Bilirubin 1 mg/dL Last Edit by Manjula Machado on 12/28/23 13:44 UA Glucose 0 mg/dL Last Edit by Manjula Machado on 12/28/23 13:44 Results Reviewed Results Reviewed: Laboratory Last Values Urine pH (Auto) 5.5 12/28/23 13:38 Specific [place] (Auto) 1.025 12/28/23 13:38 Urine Protein (Auto) 15 mg/dL 12/28/23 13:38 Glucose (UA)(Auto) 0 mg/dL 12/28/23 13:38 Urine Blood (Auto) 0 [place]/uL 12/28/23 13:38 Urine Bilirubin (Auto) 1 mg/dL 12/28/23 13:38 Urine Urobilinogen (Auto) 0.2 mg/dL 12/28/23 13:38 Leukocyte Esterase (Auto) 15 Margareth/uL 12/28/23 13:38 Date of Service: 12/15/23 EXAMINATION: US RETROPERITONEAL COMPLETE (RENAL) FINDINGS: RIGHT KIDNEY: 10.2 x 4.3 x 5.2 cm (SAG x AP x TRV). The kidney is normal in size, contour, and echogenicity. Renal cortical thickness is normal. There is an echogenic lower pole 3 mm focus seen with twinkle artifact consistent with a nonobstructing calculus. Some other smaller echogenic foci are seen. No hydronephrosis. Multiple benign Bosniak class I renal cysts as well as a Bosniak class II cysts are noted, the largest measuring 2.1 cm which has some mural calcification which require no additional imaging or follow-up. No solid renal masses are seen. LEFT KIDNEY: 9.2 x 4.8 x 4.8 cm (SAG x AP x TRV). The kidney is normal in size, contour, and echogenicity. Renal cortical thickness is normal. There is a lower pole echogenic 3 mm focus seen with twinkle artifact consistent with a nonobstructing stone. No hydronephrosis. A benign upper pole 4.6 cm Bosniak class I renal cyst is noted which requires no additional imaging or follow up. No solid renal masses are seen. BLADDER: Well distended and normal. Bilateral ureteral jets are demonstrated. Prevoid bladder volume is 219 mL. Postvoid bladder volume is 7 mL. ADDITIONAL FINDINGS: Multiple punctate calcified foci are seen in the uterus consistent with small fibroids with similar calcifications seen on the 2022 CT scan. IMPRESSION: 1. Bilateral nonobstructing renal calculi. Should be noted that on the 03/01/2023 CT scan, no calculi could be seen. 2. Bilateral Bosniak class I renal cysts which need no further imaging or follow up. Assessment & Plan Assessment & Plan (1) Renal stone: Code(s): N20.0 - Calculus of kidney Category: Medical (2) Renal cyst: Code(s): N28.1 - Cyst of kidney, acquired Category: Medical Plan In office urinalysis results reviewed with the patient today; as noted above. Patient currently denies any bothersome urinary issues or concerns. She reports be happy with current voiding parameters. Recent renal imaging results reviewed with the patient today; as noted above; discussed surveillance monitoring. Discussed further metabolic workup with 24 hour urine collection and labs; however patient declines at this time. Continue drinking plenty of fluid daily. Continue adding 1 oz of lemon juice to water daily. Continue vitamin B6 as discussed and prescribed. Will obtain renal ultrasound in 1 year. Follow-up in 1 year with imaging to be completed prior; or sooner with any issues, concerns, and or questions. Orders: Orders US renal BI 1 Year N20.0 - Calculus of kidney, N28.1 - Cyst of kidney, acquired AMB Urinalysis Automated Today Z13.9 - Encounter for screening, unspecified Medications: Refilled pyridoxine (vitamin B6) 100 mg PO DAILY 90 days 90 tabs 3RF N20.0 - Calculus of kidney Patient Instructions: The patient had an opportunity to ask questions regarding the treatment plan. All questions were answered. Physical exam, labs, and imaging were discussed and reviewed in detail. As well as risks, benefits, and discussion of treatment choices. No major barriers to understanding were identified. The patient expressed understanding and agreement with the above treatment plan. The patient was made aware they should contact our office by phone for worsening of their current condition, the appearance of new symptoms, or with any questions or concerns. Compliance is encouraged with any medications and follow up testing that is ordered. It is a privilege to be allowed the opportunity to participate in? your urological care.? Again, if you have any questions or concerns If you have any questions or concerns please do not hesitate to contact me. The office is [phone]. This note is constructed using voice recognition software. While every effort has been made to ensure accuracy drop wire operator errors may have been included. Yours sincerely, ANGELINA Noel Coding Level of Care Code Est Pt Level 3 (13802) Complex EM visit Add On G2211 Diagnoses Renal stone N20.0 Renal cyst N28.1
== END 2023-12-28 13:49 | disposition home or self-care (01) ==
PROVIDERS: PCP Nurse Practitioner Family; Visit Provider Nurse Practitioner Family
DX: N20.0 Calculus of kidney (principal); N28.1 Cyst of kidney, acquired
CPT/HCPCS: 99213; G2211

== ENCOUNTER → 2023-12-28 13:05 | Outpatient (BNVA) | payer MEDICARE, OTHER, SELFPAY | PROVIDERS: PCP Nurse Practitioner Family; Visit Provider Nurse Practitioner Family | DX: N28.1 Cyst of kidney, acquired (principal); N20.0 Calculus of kidney | CPT/HCPCS: 81003; 99212 ==

== ENCOUNTER 2024-01-12 09:11 | Outpatient (AMB) | payer MEDICARE, OTHER, SELFPAY ==
--- NOTE | 2024-01-12 09:25 | MHC.OFFVIS ---
Vital Signs 01/12/24 09:27 Height 5 ft 1 in Weight 170 lb BMI 32.1 BP 146/71 H Blood Pressure Location Lt brachial Position Sitting Respiration 16 Pulse 90 Pulse Source Pulse Oximeter Pulse Oximetry (%) 98 Oxygen Delivery Method Room Air Intake Visit Reasons: MRI FOLLOW UP/RESULTS Allergies codeine [Codeine] Allergy (Unknown, Verified 01/12/24 09:28) NAUSEA AND VOMITING, nausea pregabalin Allergy (Unknown, Verified 01/12/24 09:28) Confusion rosuvastatin [Crestor] Allergy (Unknown, Verified 01/12/24 09:28) joint pain NSAIDS (Non-Steroidal Anti-Inflamma Allergy (Verified 01/12/24 09:) Swelling oxycodone [From OxyContin] Allergy (Verified 01/12/24) Itching [place] Insulin Allergy (Unknown, Uncoded 01/12/24:) severe itching tapes, adhesives, tegaderm, st Allergy (Unknown, Uncoded 01/12/24 09:) rash wellbutrin Allergy (Unknown, Uncoded 01/12/24 09:) rash lexapro Adverse Reaction (Severe, Uncoded 01/12/24 09:28) lethargic Medication List - Last Reconciled 01/12/24 by Aliyah Lopez LPN aspirin (Adult Aspirin Regimen) 81 mg PO BEDTIME biotin 1 mg PO DAILY blood sugar diagnostic (OneTouch Ultra Test strips) check BS 2-3x/day blood sugar diagnostic (OneTouch Ultra Test strips) As directed docusate sodium (Colace) 100 mg PO DAILY PRN duloxetine 60 mg PO DAILY gabapentin 400 mg PO TID 30 days insulin glargine (Basaglar KwikPen U-100 Insulin) 45 units subcut DAILY levocetirizine (Xyzal) 5 mg PO DAILY levothyroxine 125 mcg PO DAILY@0630 lorazepam 0.5 - 1 mg PO BID PRN lurasidone 20 mg PO DAILY magnesium oxide 400 mg PO DAILY omega [id number]-fish oil 1,000 mg (120 mg-180 mg) (Fish Oil) 1 cap PO DAILY omeprazole 40 mg PO DAILY pyridoxine (vitamin B6) 100 mg PO DAILY 90 days simvastatin 40 mg PO BEDTIME HPI HPI MRI FOLLOW UP/RESULTS: Details: 73-year-old female who presents today to the office for a review of MRI scan result. Her worst pain is in her shoulder region. She states that acupuncture provided good relief. The tingling in her arms and tightness have improved with acupuncture. She has been using Salonpas patches. Her recent MRI scan result showed multiple degenerative changes. She is hesitant to have a surgical consult due to an insurance issue. Past procedures 07/06/23: Right knee durolane injection under fluoroscopy: no significant relief 06/26/23: Left glenohumeral joint injection, ultrasound guidance: % relief. [facility] Medical History Schizoaffective disorder Confusion Skin rash Vitamin D deficiency HTN (hypertension) HLD (hyperlipidemia) Cellulitis of leg, left Skin excoriation Urinary urgency Encounter to establish care Arthralgia of shoulder region, left Cervical spondylitis with radiculitis Myofascial pain on left side Depression OCD (obsessive compulsive disorder) DJD (degenerative joint disease) SI (sacroiliac) joint dysfunction Fibromyalgia GERD (gastroesophageal reflux disease) Neuropathy Diabetes Surgical History History of surgery Family History Father No problems noted. Mother No problems noted. Social History Household Members: Spouse Household Members Other:: 1 Housing: House Do you presently have visiting nurse or other home services: No Alcohol intake: former Comment: SI 1:1 Patient Tobacco Use Status: Never used Tobacco Tobacco use type: Cigarette e-Cigarette/Vaping Use: Never Used Second Hand Smoke Exposure: No service: No Current occupational status: retired Cognitive needs: Yes (cane) Hearing needs: Yes (hearing aide) Vision needs: Yes (glasses) Review of Systems Const All systems reviewed & are unremarkable except as noted in HPI and below Physical Exam Vital Signs: Last Vital Signs Pulse 90 01/12/24 09:27 Resp 16 01/12/24 09:27 BP 146/71 H 01/12/24 09:27 Pulse Ox 98 01/12/24 09:27 Oxygen Delivery Method Room Air 01/12/24 09:27 BMI result Body Mass Index 32.1 General: Appears afebrile. Alert and oriented. Mood and affect appropriate. Follows and participates in conversation appropriately. Respiratory effort is unlabored. Able to transition from sit to stand unassisted. Ambulates with bilaterally normal heel strike and toe off. Results Reviewed Results Reviewed: 12/16/23: MR CERVICAL SPINE WITHOUT CONTRAST FINDINGS: CORONAL ALIGNMENT: -Trace levoconvex scoliosis, possibly positional. SAGITTAL ALIGNMENT: -Straightening of the normal lordosis with a mild reversal centered at C5. -There is a 2 mm degenerative anterolisthesis of C3 on C4. -There is a 4 mm degenerative anterolisthesis of C4 on C5, and a compensatory 3 mm retrolisthesis of C5 on C6. -There is a 3 mm degenerative anterolisthesis of C7 on T1, and T1 on T2. -Above findings appear stable. CRANIOCERVICAL JUNCTION/C1-2 ARTICULATIONS: -Intact and aligned. -Moderate degenerative arthropathy with T2 hypointense pannus formation surrounding the dens, and mildly narrowing the craniocervical junction. Arthropathy in the lateral mass articulations of C1 with C2. VERTEBRAL BODIES/BONE MARROW: -Loss of vertebral body height of C5 and C6, stable. -Mild superior endplate concavities T1-T2, new from prior. No significant loss of height. -Mild edematous endplate changes present at C5-C6, and C6-C7. There are superimposed fatty type endplate changes. -No abnormal infiltrating bone marrow signal. -There are scattered Schmorl's nodes within the endplates. DISCS: -Severe loss of disc height and signal at C4-5 with disc vacuum phenomenon. -Moderate to severe loss of height and signal at C5-6 and C6-7, as well as C7-T1 and T1-T2. -Mild loss of disc signal without loss of disc height C2-3, C3-4, T1-T2, T3-4. -Above findings have mildly progressed from the prior examination. CERVICAL CORD: -Normal in signal throughout. -Mild flattening at C5-6 and C6-7 as discussed below. Caliber is otherwise normal. PARAVERTEBRAL SOFT TISSUES: -Retropharyngeal course of both CCAs and both ICAs. -No paravertebral or paraspinous edema. -Thyroid is obscured by a saturation band. VISUALIZED INTRACRANIAL STRUCTURES: -Mild nonspecific T2 hyperintensities in both cerebellar hemispheres, and the midbrain, most likely small vessel ischemic change. Normal pituitary gland. Preserved flow voids in both vertebral arteries. AXIAL DISC SPACE IMAGING: C2-C3: Moderate left facet hypertrophic arthropathy. No central canal or neural foraminal stenosis. No change. C3-C4: Broad-based disc osteophytic ridge complex, asymmetrically prominent to the right within the right lateral recess and contiguous with bilateral uncinate spurring right greater than left. This indents upon the ventral thecal sac but does not contact the cord or result in significant lateral recess or central stenosis. Severe right and moderate left hypertrophic facet changes are present, with the findings resulting in severe right and moderate to severe left neural foraminal stenosis. No significant change. C4-C5: Anterolisthesis with uncovering of the disc. There is a diffuse disc osteophytic extrusion, symmetrically extending into both lateral and foraminal zones, with the right lateral annular fissuring, and contiguous with severe bilateral uncinate spurring. There are mild to moderate bilateral hypertrophic facet changes. There is minimal right anterior column flattening of the cord without cord impingement present, and preserved CSF posterior to the cord. This had a similar appearance previously. There is mild to moderate right greater than left lateral recess stenosis, and severe bilateral neural foraminal stenosis. Findings appear stable. C5-C6: Retrolisthesis at this level. There is a diffuse disc osteophytic extrusion extending asymmetrically into both foraminal zones and lateral recesses, and contiguous with bilateral severe uncinate spurring. This indents upon the ventral thecal sac, appears to contact and mildly flatten the left ventral aspect of the cord, without cord impingement. There appears to be a thin sliver of CSF remaining posterior to the cord. There are mild to moderate left greater than right degenerative facet changes. There is moderate to severe bilateral lateral recess stenosis, and severe bilateral neural foraminal stenosis. Findings of mildly worsened at this level. C6-C7: There is a diffuse disc osteophytic extrusion, symmetrically involving both lateral and foraminal zones, with associated right lateral annular fissuring. This is contiguous with bilateral uncinate spurring which is severe. There are mild degenerative facet changes bilaterally, with a combination of findings resulting in moderate central canal stenosis without definite cord impingement. A thin sliver of CSF remains surrounding the cord, however there is mild flattening of the right ventral aspect of the cord. No abnormal cord signal. There is moderate right greater than left lateral recess stenosis, and severe bilateral neural foraminal impingement. Findings appear mildly worsened at this level. C7-T1: There is mild disc uncovering from anterolisthesis, a diffuse disc osteophytic extrusion extending into both foraminal zones and contiguous with left greater than right uncinate spurring. Moderate bilateral hypertrophic facet changes, with mild central canal stenosis, mild right greater than left subarticular recess stenosis, and moderate to severe bilateral neural foraminal stenosis. Findings have worsened mildly at this level. T1-T2: There is a worsening right 1 anterolisthesis with disc uncovering, and a diffuse shallow disc osteophytic bulge with a superimposed osteophytic protrusion in the right far lateral and extending into the right foraminal zone. There are severe degenerative hypertrophic facet changes and significant posterior ligamentous thickening/calcification. There is mild flattening of the left ventral aspect of the cord, with minimal impingement of the left aspect of the cord. No abnormal cord signal. There is severe right and [id number] left neural foraminal stenosis. Findings have significantly worsened at this level. T2-T3: Only seen sagittally, there is a right lateral disc osteophytic extrusion which appears to contact the right lateral aspect of the cord with mild associated flattening and possible minimal impingement. There are bilateral right greater than left facet hypertrophic changes, with combination of findings resulting in moderate right neural foraminal stenosis. The left neural foramen is patent. T3-T4: Right lateral and foraminal extrusion of disc material, minimally flattening the right far lateral aspect of the cord. This is only seen sagittally. No cord impingement. Mild right neural foraminal narrowing. IMPRESSION: 1. Multilevel advanced cervical spondylosis, progressing at C5-6, C6-C7, C7-T1, and T1-T2. 2. Stable findings at C2-3 through C4-5. 3. Possible minimal left lateral cord impingement at C5-6, right lateral cord at C6-7, left lateral cord at T1-T2, and right lateral cord at T2-T3. See above for details. 4. Multilevel foraminal stenosis, severe severe right at C3-4, severe bilateral at C4-5, severe bilateral at C5-6, severe bilateral at C6-7, and severe right at T1-T2. There is moderate to severe bilateral at C7-T1. 5. Mild loss of height of C5 and C6 superior endplates, old, with minimal superior endplate concavity of T1 and T2, new from prior. 6. Edematous endplate changes present C5-6 and C6-7. 7. Worsening mild subluxations as discussed. 8. See the body the report for further details. Assessment & Plan Assessment & Plan (1) Cervical spinal stenosis: Code(s): M48.02 - Spinal stenosis, cervical region Category: Medical Plan I counseled her regarding watching for red flag symptoms associated with cervical spine stenosis, including weakness in her upper and lower extremities, ataxia, imbalance or falls. She expressed understanding. She is not interested in a referral for neurosurgical evaluation at this time. We will follow up as needed. Scribed for Dr. Mckeon by Stefan Barksdale, medical management trainer, on 01/12/2024. I, Dr. Mckeon, have personally reviewed and agree with the information entered by the scribe. Coding Level of Care Code Est Pt Level 3 (34748) Diagnoses Cervical spinal stenosis M48.02
[2024-01-12 09:27] VITALS: BP 146/71; PULSE 90; RESP 16; O2SAT 98; BMI 32.1
== END 2024-01-12 09:44 | disposition home or self-care (01) ==
PROVIDERS: PCP Hospitalist; Visit Provider Internal Medicine
DX: M48.02 Spinal stenosis, cervical region (principal)
CPT/HCPCS: 99213

== ENCOUNTER → 2024-01-12 09:11 | Outpatient (BNVA) | payer MEDICARE, OTHER, SELFPAY | PROVIDERS: PCP Hospitalist; Visit Provider Internal Medicine | DX: M48.02 Spinal stenosis, cervical region (principal) | CPT/HCPCS: 99212 ==

== ENCOUNTER 2024-01-12 10:16 | Outpatient (REF) | payer SELFPAY | END 2024-01-12 10:17 | disposition home or self-care (01) | LOC: HO.HAP 10:16 | PROVIDERS: PCP Hospitalist; Visit Provider Hospitalist | DX: Z46.1 Encounter for fitting and adjustment of hearing aid (principal); H90.3 Sensorineural hearing loss, bilateral | CPT/HCPCS: V5267 ==

== ENCOUNTER 2024-05-15 13:55 | Emergency (ER) | payer MEDICARE, OTHER, SELFPAY ==
--- NOTE | ~2024-05-15 | XR_ITS ---
EXAMINATION: XR CHEST 1 VIEW HISTORY: weakness COMPARISON: There are no prior studies for comparison. FINDINGS: A single AP portable view of the chest performed at 3:14 PM is submitted. The lungs are expanded and clear. There is no pleural effusion, pneumothorax, or pulmonary vascular congestion. The heart is normal in size. There is degenerative disc disease and mild scoliosis of the spine. XR/XR chest 1V IMPRESSION: Clear lungs. Electronically signed by: Frank Syed MD 05/15/2024 03:28 PM [facility]
[2024-05-15 14:09] VITALS: BP 142/59; PULSE 65; RESP 20; TEMP 36.4; O2SAT 99
--- NOTE | 2024-05-15 14:09 | ED_ITS ---
HPI - Weakness General Chief complaint: General Medical Stated complaint: Weakness Pain Time Seen by Provider: 05/16/24 00:25 History of Present Illness ED Provider: Juanis ARTIS Narrative: The patient is a 74-year-old woman with a history of chronic mental illness who has been on Latuda for about a year. A few weeks ago her Latuda dose was doubled from 20 to 40. She does not seem to tolerate this change in medication well. She seemed to develop significant weakness and slowness generally. She has been on the medication for 2-3 weeks before her psychiatrist was contacted about these changes. She was advised to stop the Latuda altogether. She has been off Latuda therefore for 2 weeks. Despite stopping Latuda however she continues to have the same symptoms of generalized weakness and slowness. Her family was concerned that things have not improved after stopping the medication. They contacted the psychiatrist and the patient was advised to come to the emergency department for evaluation. The patient is also under a fair amount of stress. She lives with her who has dementia. the patient is here with her 2 sisters. 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 No fever, sweats, chills. No significant cough or sputum. No nausea or vomiting. No Headache. No lateralizing weakness or numbness. No falls. The sisters state that the patient's demeanor and personality are typical of her usual demeanor. Related Data Home Medications ?Medication ?Instructions ?Recorded ?Confirmed aspirin 81 mg tablet,delayed 81 mg PO BEDTIME 01/01/21 01/12/24 release (Adult Aspirin Regimen) lorazepam 0.5 mg tablet 0.5 - 1 mg PO BID PRN ANXIETY OR 01/01/21 01/12/24 SLEEP biotin 1 mg capsule 1 mg PO DAILY 05/17/21 01/12/24 omega 9-pht-nds-fish oil 1,000 mg 1 cap PO DAILY 05/17/21 01/12/24 (120 mg-180 mg) capsule (Fish Oil) blood sugar diagnostic (Global VelocityTouch #10 ea 05/27/21 10/30/23 Ultra Test strips) levocetirizine 5 mg tablet (Xyzal) 5 mg PO DAILY 09/09/21 01/12/24 insulin glargine 100 unit/mL (3 45 unit subcut DAILY 03/01/23 01/12/24 mL) subcutaneous pen (Basaglar KwikPen U-100 Insulin) docusate sodium 100 mg capsule 100 mg PO DAILY PRN 12/28/23 01/12/24 (Colace) duloxetine 60 mg capsule,delayed 60 mg PO DAILY 12/28/23 01/12/24 release lurasidone 20 mg tablet 20 mg PO DAILY 12/28/23 01/12/24 Previous Rx's ?Medication ?Instructions ?Recorded blood sugar diagnostic (OneTouch #100 ea 07/14/22 Ultra Test strips) magnesium oxide 400 mg (241.3 mg 400 mg PO DAILY #30 tabs 07/24/22 magnesium) tablet gabapentin 400 mg capsule 400 mg PO TID 30 days #90 caps 12/30/22 omeprazole 40 mg capsule,delayed 40 mg PO DAILY #90 caps 03/15/23 release simvastatin 40 mg tablet 40 mg PO BEDTIME #90 tabs 04/26/23 levothyroxine 125 mcg tablet 125 mcg PO DAILY@0630 #90 tabs 05/18/23 pyridoxine (vitamin B6) 100 mg 100 mg PO DAILY 90 days #90 tabs 12/28/23 tablet Allergies Allergy/AdvReac Type Severity Reaction Status Date / Time codeine [Codeine] Allergy Unknown NAUSEA AND Verified 05/15/24 14:14 VOMITING, nausea pregabalin Allergy Unknown Confusion Verified 05/15/24 14:14 rosuvastatin [Crestor] Allergy Unknown joint pain Verified 05/15/24 14:14 NSAIDS (Non-Steroidal Allergy Swelling Verified 05/15/24 14:14 Anti-Inflamma oxycodone [From OxyContin] Allergy Itching Verified 05/15/24 14:14 [place] Insulin Allergy Unknown severe Uncoded 01/12/24 09:28 itching tapes, adhesives, tegaderm, Allergy Unknown rash Uncoded 01/12/24 09:28 st wellbutrin Allergy Unknown rash Uncoded 01/12/24 09:28 lexapro AdvReac Severe lethargic Uncoded 01/12/24 09:28 Review of Systems 2 Review of Systems: Yes all other systems are reviewed and are negative PMF Past Medical History Medical History Schizoaffective disorder Confusion Skin rash Vitamin D deficiency HTN (hypertension) HLD (hyperlipidemia) Cellulitis of leg, left Skin excoriation Urinary urgency Encounter to establish care Arthralgia of shoulder region, left Cervical spondylitis with radiculitis Myofascial pain on left side Depression OCD (obsessive compulsive disorder) DJD (degenerative joint disease) SI (sacroiliac) joint dysfunction Fibromyalgia GERD (gastroesophageal reflux disease) Neuropathy Diabetes Surgical History History of surgery Family History Family History Father No problems noted. Mother No problems noted. Social History Social History Household Members: Spouse Household Members Other:: 1 Housing: House Do you presently have visiting nurse or other home services: No Alcohol intake: former Comment: SI 1:1 Patient Tobacco Use Status: Never used Tobacco Tobacco use type: Cigarette e-Cigarette/Vaping Use: Never Used Second Hand Smoke Exposure: No Advance Directives: No Advance Directives Information Provided: Yes Do you have a plan to hurt others: No Plan service: No Current occupational status: retired Cognitive needs: Yes (cane) Hearing needs: Yes (hearing aide) Vision needs: Yes (glasses) Physical Exam 2 Vital Signs: Vital Signs: Last Vital Signs Temp 98.4 F 05/16/24 01:09 Pulse 74 05/16/24 01:09 Resp 18 05/16/24 01:09 BP 136/57 L 05/16/24 01:09 Pulse Ox 98 05/16/24 01:09 O2 Del Method Room Air 05/16/24 01:09 BMI result Body Mass Index 30.0 Const: Other: The patient is a 74-year-old woman who was awake and alert. She speaks very slowly and with a somewhat unusual affect but she does not seem in distress or obviously ill. HEENT: Other: Face is symmetrical. Tongue is midline. Mucous membranes are Moist. Eyes: Other: Pupils are round, equal, and reactive to light, extraocular movements are intact, there is no nystagmus, conjunctivae are clear. Neck: Neck: Yes full ROM, Yes no lymphadenopathy and Yes no JVD Resp: Effort & Inspection: normal respiratory effort Auscultation: clear to auscultation bilaterally Cardio: Rate: regular rate Rhythm: regular rhythm Heart sounds: S1 normal heart sound present and S2 normal heart sound present GI: Other: Abdomen is soft and nontender Skin: Other: skin is pale and dry Neuro: Other: the patient is awake and alert. She is oriented and appropriate. She has a somewhat unusual demeanor with a somewhat unusual pace of her speech but her sisters state that this is normal for her. Eye movements are intact. No nystagmus. Pupils are normal. Face is symmetrical. Tongue is midline. Speech is clear without aphasia or dysarthria. She moves her extremities symmetrically. There is no pronator drift. Finger-nose is normal. She was able to walk steadily with a cane. Extrem: Other: No calf swelling or tenderness, no asymmetry, no pitting edema. Course Course Course Narrative: This is a Rapid Medical Exam performed in triage by Smita Phillip PA-C. Full HPI, ROS and PE to be performed by primary ED provider. 74-year-old female with a past medical history hypothyroid, schizoaffective, HLD, HTN, fibromyalgia, OCD, GERD depression, diabetes presenting to the ED c/o increased generalized weakness s/p taking increased dose of Lurasidone x4 weeks. PE: Nontoxic appearing, ambulating with steady gait Plan: EKG, labs Medical Decision Making Medical Decision Making MDM Narrative: The patient is a 74-year-old female who has been feeling a sense of generalized weakness over several weeks. The symptoms apparently began after an increase in her dose of lurasidone. At the recommendation of her psychiatrist she then stopped the lurasidone altogether but her symptoms have persisted. She has been off this medication for about 2 weeks. The patient does not have any obvious signs of illness on exam. Her neurological exam does not show any focal signs. At triage laboratory testing including blood testing, urine testing, and a viral swab were sent. also an EKG and chest x-ray were ordered. All of these tests are nondiagnostic to help explain her complaint in any way. Her vital signs are unremarkable. I discussed possibly doing a CT scan of the head with the patient and her sisters but they had been in the emergency room for a very long time before seeing a provider and, since I did not find any focal neurological findings and since I told them I thought a CT scan of the head would probably not be diagnostic, they did not wish to stay for a CT. I thought this was reasonable. Patient is not showing any acute findings and her symptoms are quite subacute at this point. She also spoke a bit about stress at home with her who has dementia. I think the patient is safe for discharge with outpatient follow-up with her primary care doctor and her psychiatrist. Lab Data 05/15/24 14:52 05/15/24 14:52 Labs: Lab Results 05/15/24 Range/Units 14:52 WBC 10.8 (4.8-10.8) X10*3/uL RBC 3.92 L (4.20-5.50) X10*6/uL Hgb 12.6 (12.0-16.0) g/dl Hct 37.1 (37.0-47.0) % MCV 94.6 (80.0-98.0) fL MCH 32.1 (27.0-33.0) pg MCHC 34.0 (31.0-35.0) g/dl RDW 12.1 (11.0-16.0) % Plt Count 458 H D (160-400) X10*3/uL MPV 8.1 L (9.4-12.3) fL Immature Gran % (Auto) 0.7 H (0.0-0.4) % Neut % (Auto) 79.5 H (45-73) % Lymph % (Auto) 9.8 L (20-40) % [place] % (Auto) 7.6 (2-11) % Eos % (Auto) 1.8 (0-4) % Baso % (Auto) 0.6 (0-2) % Lymph # (Auto) 1.1 L (1.2-4.9) X10*3/uL [place] # (Auto) 0.8 (0.1-1.2) X10*3/uL Eos # (Auto) 0.2 (0.0-0.4) X10*3/uL Baso # (Auto) 0.1 (0.0-0.2) X10*3/uL Abs Immat Gran (auto) 0.08 H (0.00-0.03) X10*3/uL Absolute Neuts (auto) 8.6 H (2.0-8.3) x10*3/uL Absolute Nucleated RBC 0.000 (0.0-0.012) X10*3/uL Nucleated RBC % (auto) 0.0 (0.0-0.2) /100WBC Sodium 139 (135-145) mmol/L Potassium 4.1 (3.3-5.1) mmol/L Chloride 108 (96-108) mmol/L Carbon Dioxide 21 L (22-29) mmol/L Anion Gap 14 (12-20) BUN 22 H (9-16) mg/dL Creatinine 0.81 (0.5-1.4) mg/dL Estim Creat Clear Calc 56.6 Estimated GFR > 60 Random Glucose 136 H (60-115) mg/dL Calcium 9.5 (8.4-10.2) mg/dL Magnesium 1.6 (1.6-2.6) mg/dL Total Bilirubin 0.3 (0.0-1.0) mg/dL Direct Bilirubin 0.1 (0.0-0.5) mg/dL AST 40 H (5-31) U/L ALT 33 H (0-31) U/L Alkaline Phosphatase 75 (39-117) U/L Troponin I High Sens 3.7 (<3.5-17.0) ng/L Total Protein 7.5 (6.5-8.0) g/dL Albumin 3.9 (3.5-5.0) g/dL Urine Color Dark Yellow Urine Appearance Cloudy Urine pH 5.5 (5.0-9.0) Ur Specific [place] >= 1.030 H (1.005-1.025) Urine Protein Trace (Neg-Trace) mg/dL Urine Glucose (UA) Negative (Negative) mg/dL Urine Ketones Trace (Negative) mg/dL Urine Blood Negative (Negative) Urine Nitrite Negative (Negative) Ur Leukocyte Esterase Trace H (Negative) Urine RBC 0-2 (0-2) /HPF Urine WBC 0-5 (0-5) /HPF Ur Squamous Epith Cells 0-2 (0-2) /HPF Urine Bacteria Trace (None Seen) Hyaline Casts 0-2 (0-2) /LPF Influenza Type A (PCR) NEGATIVE (Negative) Influenza Type B (PCR) NEGATIVE (Negative) RSV RNA Qual (PCR) NEGATIVE (Negative) SARS-CoV-2 RNA (RT-PCR) NEGATIVE (Negative) Discharge Plan Discharge Clinical Impression: Generalized weakness Patient Disposition: Home, Self-Care Additional Instructions: We are not finding any significant abnormalities in your testing in the emergency room today. Please plan on making a follow up appointment with your regular doctor to discuss your symptoms further. Also contact your psychiatrist and discuss how you are doing with him. Return to the emergency room if you feel significantly worse. Prescriptions: No Action (DME) OneTouch Ultra Test Strip See Rx Instructions .Route Qty: 100 2RF Rx Instructions: check BS 2-3x/day gabapentin 400 mg capsule 400 mg PO TID 30 Days Qty: 90 1RF omeprazole 40 mg capsule,delayed release(DR/EC) 40 mg PO DAILY Qty: 90 0RF simvastatin 40 mg tablet 40 mg PO BEDTIME Qty: 90 0RF levothyroxine 125 mcg tablet 125 mcg PO DAILY@0630 Qty: 90 1RF magnesium oxide 400 mg (241.3 mg magnesium) tablet 400 mg PO DAILY Qty: 30 0RF insulin glargine [Basaglar KwikPen U-100 Insulin] 100 unit/mL (3 mL) insulin pen 45 unit subcut DAILY lorazepam 0.5 mg tablet 0.5 - 1 mg PO BID PRN (Reason: ANXIETY OR SLEEP) aspirin [Adult Aspirin Regimen] 81 mg tablet,delayed release (DR/EC) 81 mg PO BEDTIME biotin 1 mg capsule 1 mg PO DAILY omega 3-nmj-tkl-fish oil [Fish Oil] 1,000 mg (120 mg-180 mg) capsule 1 cap PO DAILY levocetirizine [Xyzal] 5 mg tablet 5 mg PO DAILY (DME) OneTouch Ultra Test Strip See Rx Instructions Not Applicable TID Qty: 10 Rx Instructions: As directed docusate sodium [Colace] 100 mg capsule 100 mg PO DAILY PRN lurasidone 20 mg tablet 20 mg PO DAILY duloxetine 60 mg capsule,delayed release(DR/EC) 60 mg PO DAILY pyridoxine (vitamin B6) 100 mg tablet 100 mg PO DAILY 90 Days Qty: 90 3RF Referrals: Rigo Le MD [Physician] - Jaye Ortega MD [Primary Care Provider] - (Generalized weakness) Interventions: ED Discharge Assessment Last Done: 05/16/24 01:09 Discharge Date/Time: 05/16/24 01:09 Print Language: French
--- NOTE | 2024-05-15 14:14 | ECG_ITS ---
Test Reason : weakness Blood Pressure : */* mmHG Vent. Rate : 62 BPM Atrial Rate : 63 BPM P-R Int : 528 ms QRS Dur : 76 ms QT Int : 428 ms P-R-T Axes : * -18 25 degrees QTcB Int : 434 ms Sinus rhythm with 1st degree A-V block Minimal voltage criteria for LVH, may be normal variant ( R in aVL ) Nonspecific ST and T wave abnormality Abnormal ECG When compared with ECG of 01-Mar-2023 09:06, MO interval has increased Nonspecific T wave abnormality, improved in Anterolateral leads Referred By: Smita Phillip Electronically Signed By: JACK WAYNE MD
[2024-05-15 14:58] LABS: MANUAL DIFF FLAG NO
[2024-05-15 15:00] LABS: Basophils Absolute Auto 0.1 X10*3/uL (0.0-0.2); Basophils Percent Auto 0.6 % (0-2); Eosinophils Absolute Auto 0.2 X10*3/uL (0.0-0.4); Eosinophils Percent Auto 1.8 % (0-4); Hematocrit 37.1 % (37.0-47.0); Hemoglobin 12.6 g/dl (12.0-16.0); Imm Gran Abs Auto 0.08 X10*3/uL (0.00-0.03); Imm Gran Pct Auto 0.7 % (0.0-0.4); Lymphocytes Absolute Auto 1.1 X10*3/uL (1.2-4.9); Lymphocytes Percent Auto 9.8 % (20-40); Mean Corpuscular Hemoglobin 32.1 pg (27.0-33.0); Mean Corpuscular Volume 94.6 fL (80.0-98.0); Mean Platelet Volume 8.1 fL (9.4-12.3); Monocytes Absolute Auto 0.8 X10*3/uL (0.1-1.2); Monocytes Percent Auto 7.6 % (2-11); Neutrophils Absolute Auto 8.6 x10*3/uL (2.0-8.3); Neutrophils Percent Auto 79.5 % (45-73); Platelet Count 458 X10*3/uL (160-400); Red Blood Count 3.92 X10*6/uL (4.20-5.50); Red Cell Distribution Width 12.1 % (11.0-16.0); White Blood Count 10.8 X10*3/uL (4.8-10.8)
[2024-05-15 15:01] LABS: Appearance Urine Cloudy; Color Urine Dark Yellow; Glucose Urine UA Negative (Negative); Leukocyte Esterase Urine Trace (Negative); Nitrite Urine Negative (Negative); PH 5.5 (5.0-9.0); Specific Gravity - Urine >= 1.030 (1.005-1.025); UMIC TRIGGER UACC YES; Urine Blood Negative (Negative); Urine Ketones Trace mg/dL (Negative); Urine Protein Trace mg/dL (Neg-Trace)
[2024-05-15 15:20] LABS: Alanine Aminotransferase 33 U/L (0-31); Albumin Level 3.9 g/dL (3.5-5.0); Alkaline Phosphatase 75 U/L (39-117); Anion Gap 14 (12-20); Aspartate Amino Transferase 40 U/L (5-31); Bilirubin Direct 0.1 mg/dL (0.0-0.5); Bilirubin Total 0.3 mg/dL (0.0-1.0); Blood Urea Nitrogen 22 mg/dL (9-16); Calcium 9.5 mg/dL (8.4-10.2); Carbon Dioxide 21 mmol/L (22-29); Chloride 108 mmol/L (96-108); Creatinine Clr Calc Pharmacy 56.6; Estimated Glomerular Filt Rate > 60; Glucose Random 136 mg/dL (60-115); Magnesium 1.6 mg/dL (1.6-2.6); Potassium 4.1 mmol/L (3.3-5.1); Sodium 139 mmol/L (135-145); Total Protein 7.5 g/dL (6.5-8.0)
[2024-05-15 15:21] LABS: Bacteria Urine Trace (None Seen); Hyaline Casts Urine 0-2 /LPF (0-2); RBC Urine 0-2 /HPF (0-2); Squamous Epithelial Cell Urine 0-2 /HPF (0-2); WBC Urine 0-5 /HPF (0-5)
[2024-05-15 15:26] LABS: Troponin-I High Sensitivity 3.7 ng/L (<3.5-17.0)
[2024-05-15 15:37] LABS: Influenza A PCR NEGATIVE (Negative); Influenza B PCR NEGATIVE (Negative); Resp Syncy Virus RNA Qual PCR NEGATIVE (Negative); SARS COV2 PCR INHOUSE NEGATIVE (Negative)
--- OUTSIDE RECORDS SUMMARY | 2024-05-15 16:07 | XMS_ITS ---
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 [address] [place] [address] 04/21/2023 Cedric Sosa Plan Of Treatment No Information Progress Notes * Lizzette MOSQUERA LDOB:1950 (72 yo F)Acc No.[id number]:04/21/2023 Patient:?Obdulia Lizzette Ford :1950???Age:72 Y???Sex:Female Address:[address] [place] [address] * true * Date:? Generated for Royer cruz/Charis/eTransmitting on:?05/15/2024 04:06 PM EST
--- OUTSIDE RECORDS SUMMARY | 2024-05-15 16:07 | XMS_ITS ---
Author Organization [facility] Address [address] [place] [id number] Care Team Providers Care Vehicle Mechanic Name Role Phone GORGE CALABRESED Primary Care Provider Herson Franco Unavailable [phone] REASON FOR VISIT FYI Medications Medication SIG (Take, Route, Fr equency, Duration) Notes Start Date End Date Status traMADol HCl 50 MG half tablet as neede d Orally Once a day for 5 days 04/03/2024 Active Encounters Encounter Location Date Provider Diagnosis [address] [place] [address] 04/03/2024 Herson Franco Pain in unspecified shoulder M25.519 Assessments Encounter Date Diagnosis (ICD Code) Assessment Notes Treatment Notes Treatment Clinical Notes Section Notes 04/03/2024 Pain in unspecified shoulder (ICD-10 - M25.519) Plan Of Treatment Medication Medication Name Sig Start Date Stop Date Notes traMADol HCl 50 MG half tablet as neede d Orally Once a day for 5 days 04/03/2024 Next Appt Details Provider Name:CARYN CALABRESE , 06/11/2024 02:15:00 PM, [address] [place] [address] [address], [place], [address], Progress Notes * Edda MOSQUERA:[birth year] (73 yo F)Acc No.[id number]:04/03/2024 Patient:?EVELINE Lizzette :1950???Age:73 Y???Sex:Female Address:[address] [place] [address] [place] [address] * Refills? Start traMADol HCl Tablet, 50 MG, Orally, 5, half tablet as needed, Once a day, 5 days, Refills=0 Subjective: * Chief Complaints: * ???FYI * Medical History:? * Surgical History:? * Hospitalization/Major Diagno stic Procedure:? * Medications:? Objective: * Vitals:? * Physical Examination:? Assessment: * Assessment: 1.?Pain in unspecified shoul kennedy - M25.519 (Primary)??? Plan: * Treatment: * Procedure Codes:? * true * Date:? Generated for Royer cruz/Charis/Che on:?05/15/2024 04:07 PM EST
--- OUTSIDE RECORDS SUMMARY | 2024-05-15 16:07 | XMS_ITS ---
Demographics Address [address] [place] [address] Email Address Preferred Language en Marital Status Jew Affiliation Unknown Race White Ethnic Group Not or Lati no Author Organization [facility] Address [address] [place] [address] Support Name Relationship Address Phone Rigo Jin Emergency Contact [address] [place], [place] [id number] Lizzette Mosquera Guarantor Unknown Care Team Providers Care Altitude Chamber Technician Name Role Phone Noah Ortega Primary Care Provider Cedric Rueda Unavailable [phone] Allergies Allergen (clinical drug ingredient) Drug/Non Drug Allergy documented on EMR Reaction Allergy Type Onset Date Status ibuprofen Advil leg swelling Drug Allergy Acti ve escitalopram Lexapro swelling Drug Allergy Acti ve oxycodone OxyCONTIN itching severe Drug Allergy Ac tive codeine Codeine nausea Drug Allergy Active Adhesive redness Allergy Active REASON FOR VISIT Last PCP Visit: 05/2023, At Risk Footcare, Painful nail(s) aggrevated by shoes and causing difficulty standing/walking., Foot pain Medications Medication SIG (Take, Route, Frequency, Duration) Notes Start Date End Date Status Compression Stockings 20-30mm Hg as directed 03/24/2011 Unknown Atabex Unknown Crestor Unknown Advil Unknown Advair Diskus Unknow n Magnesium 400 MG as directed Orally 04/21/2023 Active Vitamin D3 50 MCG (2000 UT) 1 tablet Orally Once a day for 30 day(s) 04/21/2023 Active Biotin 04/21/2023 Active Haldol Decanoate 50 MG/ML 1 mL Intramusc ular for 30 day(s) Unknown Omeprazole 40 MG 1 capsule 30 minutes before morning meal Orally Once a day Active Tylenol 04/21/2023 Active Vitamin B6 100 MG 1 tablet Orally Once a day for 30 day(s) 04/21/2023 Active Cymbalta 30 MG 1 capsule Orally Onc e a day for 30 day(s) 04/21/2023 Active Lasix 20 MG 1 tablet Orally Once a day for 30 day(s) 04/21/2023 Active Latuda 20 MG 1 tablet in the even ing with food Orally Once a day for 30 day(s) 04/21/2023 Active Ativan 0.5 MG 1 tablet at bedtime as needed Orally Once a day 04/21/2023 Active Ativan 1 MG 1 tablet at bedtime as needed Orally Once a day 04/21/2023 Active Xyzal 04/21/2023 Active Voltaren 1 % as directed Externally Active Colace 100 MG 1 capsule as needed Orally Once a day for 30 day(s) 04/21/2023 Active Fish Oil 1000 MG 1 capsule Orally Onc e a day for 30 day(s) 04/21/2023 Active Levothyroxine Sodium 150 MCG 1 tablet in the morning on an empty stomach Orally Active Aspirin 81mg Active Gabapentin 400 MG 1 capsule Orally Onc e a day for 30 day(s) Active Simvastatin 40 MG 1 tablet in the even ing Orally Once a day for 30 day(s) Active metFORMIN HCl Unknow n Basaglar KwikPen 100 UNIT/ML 45 UNIT (0.45 ML) SUBCUTANEOUSLY EVERY MORNING Subcutaneous for 30 Days Active Vitamin B + C Complex Active Lexapro Unknown Social History Tobacco Use: Social History Observation Description Date Details (start date - stop date) Never Smoker NA - NA Tobacco Use/Smoking Question Answer Notes Are you a: nonsmoker Additional Findings: Tobacco Non-User Current no n-smoker Alcohol Screen Question Answer Notes Did you have a drink containing alcohol in the p ast year? Yes Points 0 Interpretation Negative Tobacco use other than smoking: Question Answer Notes Are you an other tobacco user? No Problems Problem Type SNOMED Code ICD Code Onset Dates Problem Status W/U Status Risk Notes Problem Polyneuropathy due to type 2 diabetes mellitus ([id number]) Type 2 diabetes mellitus with diabetic polyneuropathy (E11.42) Active confirmed Vital Signs Height 5 ft 1 in in 06/07/2023 Weight 155 lbs 06/07/2023 BMI 29.28 kg/m2 06/07/2023 Encounters Encounter Location Date Provider Diagnosis [facility] [address] [place] [address] 06/07/2023 Cedric Sosa Type 2 diabetes mellitus with diabetic polyneuropathy E11.42 ; Pain in right toe(s) M79.674 ; Tinea unguium B35.1 ; Pain in left toe(s) M79.675 and Pain in unspecified foot M79.673 Assessments Encounter Date Diagnosis (ICD Code) Assessment Notes Treatment Notes Treatment Clinical Notes Section Notes 06/07/2023 Type 2 diabetes mellitus with diabetic polyneuropathy (ICD-10 - E11.42) 06/07/2023 Pain in right toe(s) (ICD-10 - M79.674) 06/07/2023 Tinea unguium (ICD-10 - B35.1) 06/07/2023 Pain in left toe(s) (ICD-10 - M79.675) 06/07/2023 Pain in unspecified foot (ICD-10 - M79.673) Plan Of Treatment Next Appt Details Follow Up: prn, Reason: Procedure Notes * Category Sub-Category Detail Notes Debride Nail 6-10 Nail debridement Nail debridem ent performed extensively to reduce/remove overall nail length and girth, subungual debris, and necrotic tissue, by manual and electrical means with use of a nail nipper and/or dremel, to more viable healthy nail plate or bed tissue 6-10. Silver nitrate used for any petechial bleeding as necessary. Patient chooses, no pharmaceutical tx (33423) Progress Notes * Lizzette MOSQUERA LDOB:1950 (73 yo F)Acc No.[id number]:06/07/2023 Progress Notes Patient:?Lizzette Mosquera Provider:?Cedric Sosa DPM :1950???Age:73 Y???Sex:Female D ate:06/07/2023 Address: [address] [facility] Pcp:Noah Ortega Subjective: * Chief Complaints: * ??? Last PCP Visit: t Risk Footcare Painful nail(s) aggrevated by shoes and causing difficulty standing/walking.Foot pain * HPI: ???At Risk footcare:?Pt States Last PCP Visit:?Date?05/06/2023 ???Foot Pain:?Nature:?swelling.?Location?B/L feet and legs.?Duration:?several years.?Onset/Cause:?unknown.?Course:?worse.?Treatments:?comp stockings.?Quality/Severity?moderate, severe.? * ROS:?General/Constitutional:?Nausea?denies, denies.?Vomiting?denies, denies.?Hunger Thirst?denies, denies.?Loss appetite?denies, denies.?Chills?denies, denies.?Fatigue?denies, denies.?Fever?denies, denies.?Night Sweats denies, denies.?Unexplained weight loss?denies, denies.?Unexplained weight gain?denies.?Ophthalmologic:?Blurred vision?denies.?Red eye?denies.?HEENTM:?Dentures?denies, denies.?Dizziness?denies, denies.?Glasses/contacts?admits, denies.?Retinopathy?denies, denies.?Blurred/double vision?denies, denies.?TMJ?denies, denies.?Discharge/drainage?denies, denies.?Implants?denies, denies.?Sore throat?denies.?Dental implants?denies.?Hard of hearing ?admits, denies.?Difficulty chewing/swallowing/speaking?denies, denies.?Nose bleeds?denies, denies.?Sore mouth?denies, denies.?Swollen glands?denies.?Respiratory:?On Oxygen?denies, denies.?Pneumonia/pleurisy?denies, denies.?Bronchitis?denies, denies.?Emphysema?denies, denies.?Coughing?denies, denies.?Cough blood?denies, denies.?Shortness of breath?denies, denies.?Wheezing?denies, denies.?Cardiovascular:?Pacemaker?denies, denies.?MVP?denies, denies.?WPW?denies, denies.?CHF?denies, denies.?Heart attack?denies, denies.?Septal defect?denies, denies.?Rapid beat?denies, denies.?Chest pain ?denies, denies.?Atrial Fib.?denies, denies.?Murmur/Palpitations?denies, denies.?Gastrointestinal:?Hemorrhoids?denies, denies.?Stomach/Abdominal pain?admits, denies.?Dark blood stool?denies, denies.?Irritable bowel ?denies, denies.?Constipation?denies, denies.?Diarrhea?denies, denies.?Vomiting?denies.?Hematology:?Swelling?denies, denies.?Clots?denies.?Varicose Veins?denies.?Bruising?denies, denies.?Bleeding problem?denies, denies.?Genitourinary:?Blood urine?denies, denies.?Frequent/Painfu/urination/bladder control?denies, denies.?Kidney stones?admits, denies.?Infection (UTI)?denies, denies.?Nephropathy?admits, denies.?sex trans dis (STD)?denies.?Prostate?denies.?Musculoskeletal:?Hammertoes?denies, denies.?Bunions?denies, denies.?Scoliosis/kyphosis?denies.?Back Pain?admits.?Muscle Cramps/ Resting?denies.?Muscle cramps / walking?denies, denies.?Generalized aches and pains?admits, denies.?Weakness?denies, denies.?Integ.:?[place]?denies, denies.?Scars?admits, denies.?Corns/calluses?denies, denies.?Ingrown nails?denies, denies.?Painful nails?denies, denies.?Open Sores?denies.?Rashes?denies, denies.?Neurologic:?Difficulty sleeping?denies, denies.?Bipolar?denies.?Brain disorder?denies, denies.?Numbness?denies.?Balance trouble?denies, denies.?Confusion?denies, denies.?Fainting/blackouts?denies, denies.?Headache?denies.?Tingling?denies.?Tremors?denies, denies.? * Medical History:? * Surgical History:?right mast ectomy Left shoulder 3 Spurs * Hospitalization/Major Diagno stic Procedure:?Denies Past Hospitalization * Family History:?Mother: dece ased.?Father: , cancer.?Paternal Grand Mother: diabetes.?Maternal Grand Mother: diabetes.?Paternal aunt: cancer, diabetes.?Paternal uncle: diabetes, cancer, diabetes.?Maternal aunt: heart attack, cancer.?Maternal uncle: cancer, diabetes.?Spouse: heart attack.?Cousin: cancer, diabetes.? * Social History:?Tobacco Use:?Tobacco Use/Smoking?Are you a:?nonsmoker ?Additional Findings: Tobacco Non-User?Current non-smoker ?Tobacco use other than smoking?Are you an other tobacco user??No ???Drugs/Alcohol:?Drugs?Have you used drugs other than those for medical reasons in the past 12 months??No ?Alcohol Screen?Did you have a drink containing alcohol in the past year??Yes ?Points?0 ?Interpretation?Negative ???Miscellaneous:?Caffeine: yes, frequency:, 2-3 cups per day. ?Children: yes, 1. ?Exercise: yes, baking. ?Marital status: . * Medications:?TakingVitamin B + C Complex Basaglar KwikPen 100 UNIT/ML Solution Pen-injector 45 UNIT (0.45 ML) SUBCUTANEOUSLY EVERY MORNING Subcutaneous Simvastatin 40 MG Tablet 1 tablet in the evening Orally Once a dayGabapentin 400 MG Capsule 1 capsule Orally Once a dayAspirin 81mg Levothyroxine Sodium 150 MCG Tablet 1 tablet in the morning on an empty stomach Orally Fish Oil 1000 MG Capsule 1 capsule Orally Once a dayXyzal Ativan 1 MG Tablet 1 tablet at bedtime as needed Orally Once a dayAtivan 0.5 MG Tablet 1 tablet at bedtime as needed Orally Once a dayColace 100 MG Capsule 1 capsule as needed Orally Once a dayVoltaren 1 % Gel as directed Externally Tylenol Latuda 20 MG Tablet 1 tablet in the evening with food Orally Once a dayLasix 20 MG Tablet 1 tablet Orally Once a dayCymbalta 30 MG Capsule Delayed Release Particles 1 capsule Orally Once a dayVitamin B6 100 MG Tablet 1 tablet Orally Once a dayBiotin Vitamin D3 50 MCG (2000 UT) Tablet 1 tablet Orally Once a dayMagnesium 400 MG Tablet as directed Orally Omeprazole 40 MG Capsule Delayed Release 1 capsule 30 minutes before morning meal Orally Once a dayTaking Vitamin B + C Complex Taking Basaglar KwikPen 100 UNIT/ML Solution Pen-injector 45 UNIT (0.45 ML) SUBCUTANEOUSLY EVERY MORNING Subcutaneous Taking Simvastatin 40 MG Tablet 1 tablet in the evening Orally Once a dayTaking Gabapentin 400 MG Capsule 1 capsule Orally Once a dayTaking Aspirin 81mg Taking Levothyroxine Sodium 150 MCG Tablet 1 tablet in the morning on an empty stomach Orally Taking Fish Oil 1000 MG Capsule 1 capsule Orally Once a dayTaking Xyzal Taking Ativan 1 MG Tablet 1 tablet at bedtime as needed Orally Once a dayTaking Ativan 0.5 MG Tablet 1 tablet at bedtime as needed Orally Once a dayTaking Colace 100 MG Capsule 1 capsule as needed Orally Once a dayTaking Voltaren 1 % Gel as directed Externally Taking Tylenol Taking Latuda 20 MG Tablet 1 tablet in the evening with food Orally Once a dayTaking Lasix 20 MG Tablet 1 tablet Orally Once a dayTaking Cymbalta 30 MG Capsule Delayed Release Particles 1 capsule Orally Once a dayTaking Vitamin B6 100 MG Tablet 1 tablet Orally Once a dayTaking Biotin Taking Vitamin D3 50 MCG (2000 UT) Tablet 1 tablet Orally Once a dayTaking Magnesium 400 MG Tablet as directed Orally Taking Omeprazole 40 MG Capsule Delayed Release 1 capsule 30 minutes before morning meal Orally Once a dayUnknownHaldol Decanoate 50 MG/ML Solution 1 mL Intramuscular Atabex Compression Stockings 20-30mm Hg closed toe- knee high as directed Advair Diskus Advil Crestor Lexapro metFORMIN HCl Medication List reviewed and reconciled with the patientUnknown Haldol Decanoate 50 MG/ML Solution 1 mL Intramuscular Unknown Atabex Unknown Compression Stockings 20-30mm Hg closed toe- knee high as directed Unknown Advair Diskus Unknown Advil Unknown Crestor Unknown Lexapro Unknown metFORMIN HCl Medication List reviewed and reconciled with the patient * Allergies:?Codeine: nauseaAd thaddeus: leg swellingAdhesive: rednessOxyCONTIN: itching severeLexapro: swellingyes[Allergies Verified] Objective: * Vitals:?Ht: 5 ft 1 in, Wt:15 5, BMI:29.28, Shoe size: 7.5 Wide, BS:123, Ht-cm: 154.94 cm, Wt-k.31 kg. * ???Past Orders: ???Lab:HEMOGLOBIN A1C (GLYCO HEMOGLOBIN) (Order Date - 06/07/2023) (Collection Date - 05/04/2023) ? Value Reference Range ?HEMOGLOBIN A1C (HH) 5.5 * Examination: ???Ophthalmology Referral: ?DIABETES EYE EXAM?Neurological: ?SENSORY:? Neurological exam demonstrates, reduced vibration sensation, 5.07 monofilament test performed at plantar aspects of 5 varied sites per foot shows sensation, reduced , B/L, at Forefoot, at Midfoot.?TINEL'S COMPRESSION:?Negative tarsal tunnel, rome pedis, and medial calcaneal nerves B/L.?BABINSKI REFLEX:?absent.?Vascular: ?DP PULSES:? 0/4, B/L.?PT PULSES:? 0/4, B/L.?EDEMA:? 3/4, non-pitting, B/L, Foot, Ankle(s), Leg(s).?Nails: ?NAILS are:? Elongated, overgrown, dystrophic, lytic, greater than 3mm thick, discolored and friable with crumbly malodorous subungual debris, with dull to no pain on palpation due to neuropathy, 1-5 B/L.?Dermatologic: ?SKIN FINDINGS:?Skin exam reveals keratotic lesion(s) located at , Skin exam reveals normal texture, elasticity, and tugor. There are no masses. The interspaces are clear, B/L .?General Examination: ?GENERAL APPEARANCE:?pleasant, alert, well nourished, well developed, well hydrated, with good attention to hygene/body habitus, and in no acute distress.?ORIENTED:?person,place, and time.?FOOT EXAM:?Neuroma Pain: ?PALPATION:?No interspace pain noted on palpation.?Orthopedic: ?MUSCLE STRENGTH:?5/5 all groups in a symmetrical fashion , B/L.?GAIT ABNORMALITY:?pronated, abducted, B/L.?FOOT MORPHOLOGY:? Pes Planus structure, B/L.? Assessment: * Assessment: 1.?Type 2 diabetes mellitus with diabetic polyneuropathy - E11.42?2.?Pain in right toe(s) - M79.674?3.?Pain in left toe(s) - M79.675?4.?Tinea unguium - B35.1 (Primary)?5.?Pain in unspecified foot - M79.673? Plan: * Treatment: * Procedures:?Debride Nail 6-10:?Nail debridement?Nail debridement performed extensively to reduce/remove overall nail length and girth, subungual debris, and necrotic tissue, by manual and electrical means with use of a nail nipper and/or dremel, to more viable healthy nail plate or bed tissue 6-10. Silver nitrate used for any petechial bleeding as necessary. Patient chooses, no pharmaceutical tx (64618).? * Procedure Codes:?25233 DEBRI DE NAIL, 6 OR MORE, Modifiers: XS * Preventive Medicine:? ??Counseling:?Discussion:?-03: Office or other outpatient visit for the evaluation and management of a new patient, which required a medically appropriate history and/or examination and LOW level of DECISION MAKING for: 1 STABLE ACUTE UNCOMPLICATED PROBLEM, 2 OR MORE MINOR PROBLEMS, OR 1 STABLE CHRONIC PROBLEM, THAT POSE(S) A LOW RISK FOR MORBIDITY/MORTALITY. The visit on the day of the encounter encompassed interpreting the data and educating the patient as to the nature of their condition, treatment options available according to their individual PMH, meds, allergies, and overall health/living conditions, as well as any potential risks or complications that may occur from a failure to adhere to, and participate in, the recommended course of therapy. The discussion included a complete verbal, and/or written explanation of the examination results, any x-rays taken, the proposed diagnosis, and outline of the treatment plan. A schedule for future care needs was also explained. The patient verbalized an understanding of the instructions at this time and agreed to be an active participant in their treatment. If the patient should think of any questions or concerns after the visit, I have encouraged the patient to call the office.?Diabetic Footcare:?The patient was advised against future self nail/callus care due to inherent risks for infection, loss of limb/life given diabetes, neuropathy, peripheral vascular disease.? * Follow Up:?prn * Images: * Sign off status: Completed true * Provider:?Cedric Sosa DPM Date:? 024 Generated for Royer cruz/Charis/Che on:?05/15/2024 04:06 PM EST History and Physical Notes * HPI (History of Present Illness) Category Sub-Category Detail Notes Category Not es At Risk footcare Pt States Last PCP Visit: Date: 4 Foot Pain Onset/Cause: unknown Course: worse Duration: several years Nature: swelling Treatments: comp stockings Quality/Severity moderate, severe Location B/L feet and legs Examination Category Sub-Category Detail Notes Category Not es Neuroma Pain PALPATION: No interspace pain noted on palpation Neurological SENSORY: Neurological exa m demonstrates, reduced vibration sensation, 5.07 monofilament test performed at plantar aspects of 5 varied sites per foot shows sensation, reduced , B/L, at Forefoot, at Midfoot BABINSKI REFLEX: absent TINEL'S COMPRESSION: Negative tarsal nicholas nini, rome pedis, and medial calcaneal nerves B/L Dermatologic SKIN FINDINGS: Skin exam reveal s keratotic lesion(s) located at , Skin exam reveals normal texture, elasticity, and tugor. There are no masses. The interspaces are clear, B/L Orthopedic GAIT ABNORMALITY: pronated, abducted, B/L FOOT MORPHOLOGY: Pes Planus structure , B/L MUSCLE STRENGTH: 5/5 all groups in a symmetrical fashion , B/L General Examination GENERAL APPEARANCE: pleasant , alert, well nourished, well developed, well hydrated, with good attention to hygene/body habitus, and in no acute distress FOOT EXAM: Lower Extremity Neurological Exa m performed:: Yes Visual exam of foot performed:: Yes Date: 06/07/2023 Sensory testing performed:: sensations d iminished Pedal pulse taking performed:: absent ORIENTED: person,place, and ti me Ophthalmology Referral DIABETES EYE EXAM Diabeti c Retinopathy Screening:: Yes 04/2023 Findings of Diabetic Eye Exam:: no retin opathy Vascular DP PULSES (B): 0/4, B/L PT PULSES (B): 0/4, B/L EDEMA (C): 3/4, non-pitting, B/ L, Foot, Ankle(s), Leg(s) Nails NAILS are: Elongated, overg rown, dystrophic, lytic, greater than 3mm thick, discolored and friable with crumbly malodorous subungual debris, with dull to no pain on palpation due to neuropathy, 1-5 B/L
--- OUTSIDE RECORDS SUMMARY | 2024-05-15 16:07 | XMS_ITS ---
Author Organization [facility] Address [address] [place] [address] Care Team Providers Care Hr Shared Services Consultant Name Role Phone TERRENCE CALABRESERUBIN Primary Care Provider [phone] REASON FOR VISIT ERROR Medications Medication SIG (Take, Route, Fr equency, Duration) Notes Start Date End Date Status traMADol HCl 50 MG 1/2 tablet Orally On ce a day for 5 days 04/03/2024 Active Encounters Encounter Location Date Provider Diagnosis [facility] [address] [address] 04/05/2024 CARYN CALABRESE Pain in unspecified shoulder M25.519 Assessments Encounter Date Diagnosis (ICD Code) Assessment Notes Treatment Notes Treatment Clinical Notes Section Notes 04/05/2024 Pain in unspecified shoulder (ICD-10 - M25.519) Plan Of Treatment Medication Medication Name Sig Start Date Stop Date Notes traMADol HCl 50 MG 1/2 tablet Orally Once a day for 5 days 04/03/2024 Next Appt Details Provider Name:CARYN CALABRESE , 06/11/2024 02:15:00 PM, [address] [place] [address], [place], [address], Progress Notes * Edda MOSQUERA:[birth year] (73 yo F)Acc No.[id number]:04/05/2024 Patient:?Pete MOSQUERAa :1950???Age:73 Y???Sex:Female Address:[address] [place] [address] * Refills? Refill traMADol HCl Tablet, 50 MG, Orally, 3, 1/2 tablet, Once a day, 5 days, Refills=0 * true * Date:? Generated for Royer cruz/Charis/Che on:?05/15/2024 04:07 PM EST
--- OUTSIDE RECORDS SUMMARY | 2024-05-15 16:07 | XMS_ITS | Patient Health Record ---
Demographics Address [address] [place] [address] Email Address Preferred Language en Marital Status Rastafari Affiliation Unknown Race White Ethnic Group Not or Lati no Author [facility] Address [address] [facility] [address] [place] [address] Support Name Relationship Address Phone Rigo Jin Emergency Contact [address] [place] [address] Lizzette Steiner Guarantor Unknown Care Team Providers Care Vocational Technical Education Director Name Role Phone Noah Ortega Primary Care Provider Cedric Rueda Unavailable [phone] Allergies Allergen (clinical drug ingredient) Drug/Non Drug Allergy documented on EMR Reaction Allergy Type Onset Date Status ibuprofen Advil leg swelling Drug Allergy Acti ve escitalopram Lexapro swelling Drug Allergy Acti ve oxycodone OxyCONTIN itching severe Drug Allergy Ac tive codeine Codeine nausea Drug Allergy Active Adhesive redness Allergy Active Results Component Value Reference Range Notes HEMOGLOBIN A1C (GLYCOHEMOGLO BIN) Reviewed date:06/07/2023 10:15:24 AM Interpretation: Performing Lab: Notes/Report: HEMOGLOBIN A1C (HH) 5.5 Reason For Referral No Information Medications Medication SIG (Take, Route, Frequency, Duration) Notes Start Date End Date Status Tylenol 04/21/2023 Active Voltaren 1 % as directed Externally Active Colace 100 MG 1 capsule as needed Orally Once a day for 30 day(s) 04/21/2023 Active Vitamin B6 100 MG 1 [...] a day for 30 day(s) 04/21/2023 Active Magnesium 400 MG as directed Orally 04/21/2023 Active Vitamin D3 50 MCG (2000 UT) 1 tablet Orally Once a day for 30 day(s) 04/21/2023 Active Biotin 04/21/2023 Active Basaglar KwikPen 100 UNIT/ML 45 UNIT (0.45 ML) SUBCUTANEOUSLY EVERY MORNING Subcutaneous for 30 Days Active Compression Stockings 20-30mm Hg as directed 03/24/2011 Unknown Vitamin B + C Complex Active Atabex Unknown Haldol Decanoate 50 MG/ML 1 mL Intramusc ular for 30 day(s) Unknown Omeprazole 40 MG 1 capsule 30 minutes before morning meal Orally Once a day Active Levothyroxine Sodium 150 MCG 1 tablet in the morning on an empty stomach Orally Active Lexapro Unknown Aspirin 81mg Active Crestor Unknown Gabapentin 400 MG 1 capsule Orally Onc e a day for 30 day(s) Active Advil Unknown Simvastatin 40 MG 1 tablet in the even ing Orally Once a day for 30 day(s) Active Advair Diskus Unknow n Ativan 0.5 MG 1 tablet at bedtime as needed Orally Once a day 04/21/2023 Active Ativan 1 MG 1 tablet at bedtime as needed Orally Once a day 04/21/2023 Active Xyzal 04/21/2023 Active Fish Oil 1000 MG 1 capsule Orally Onc e a day for 30 day(s) 04/21/2023 Active metFORMIN HCl Unknow n Social History Tobacco Use: Social History Observation [...] Problem Status W/U Status Risk Notes Problem Contusion of foot (97797325) Contusion of foot (924.20) Active confirmed Problem Edema (06932789) Edema (782.3) Active confirmed Problem Neurologic disorder associated with type II diabetes mellitus (456213488) Diabetic - NIDDM/Neuropathy (250.60) Active confirmed Problem Polyneuropathy due to type 2 diabetes mellitus (553993853) Type 2 diabetes mellitus with diabetic polyneuropathy (E11.42) Active confirmed Vital Signs Height 5 ft 1 in in 06/07/2023 Weight 155 lbs 06/07/2023 BMI 29.28 kg/m2 06/07/2023 Encounters Encounter Location Date Provider Diagnosis [facility] [address] [place] [address] 06/07/2023 Cedric Sosa Type 2 diabetes mellitus [...] in right toe(s) (ICD-10 - M79.674) 06/07/2023 Pain in left toe(s) (ICD-10 - M79.675) 06/07/2023 Tinea unguium (ICD-10 - B35.1) 06/07/2023 Pain in unspecified foot (ICD-10 - M79.673) Plan Of Treatment Pending Test Test Name Order Date X ray : Foot, left 3V 02/23/2011 Insurance Providers Payer Name Payer Address Payer Phone Subscriber Number Group Number Insured Name Patient Relationship to Insured Coverage Start Date Coverage End Date Medicare National Govt Sv[employer] [address] [facility] [address] [id number] Lizzette Steiner Self - patient is the insured [facility] ([facility]) [address] [place] [address] [id number] Rigo Steiner Spouse - patient is the spouse of the insured Medical (General) History Medical History History ICD Code breast cancer chicken pox thyroid disorder measles diabetic depression Anxiety Arthritis asthma Back,Hip,and Knee pain Cataracts Depression Fibromyalgia Numbness Psychiatric disorder Hearing loss Surgical History Surgery Date(Month/Year) right mastectomy Left shoulder 3 Spurs
--- OUTSIDE RECORDS SUMMARY | 2024-05-15 16:07 | XMS_ITS ---
Author Organization [facility] Address [address] [place] [phone] Care Team Providers Care College President Name Role Phone CARYN CALABRESE Primary Care Provider Encounters Encounter Location Date Provider Diagnosis [facility] [address] [facility] [address] [place] [address] 04/05/2024 CARYN CALABRESE Plan Of Treatment Next Appt Details Provider Name:CARYN CALABRESE , 06/11/2024 02:15:00 PM, [address] [place] [address] [address], [place], [address], Progress Notes * Alvaro MOSQUERAB:[birth year] 49 (73 yo F)Acc No.[id number]:04/05/2024 Patient:?EVELINEPetea :1950???Age:73 Y???Sex:Female Address:[address] [place] [address] * true * Date:? Generated for Royer cruz/Charis/eTransmitting on:?05/15/2024 04:07 PM EST
--- OUTSIDE RECORDS SUMMARY | 2024-05-15 16:08 | XMS_ITS | Clinical Summary ---
Demographics Address [address] [place] [address] Home Phone Email Address Preferred Language Divehi Marital Status Congregational Affiliation Unknown Race White Ethnic Group Not or Lati no Author Organization [facility] Address [address] [place] [address] Support Name Relationship Address Phone Rigo Steiner Emergency Contact [address] [facility] [place] [address] Care Team Providers Care Assembler Installer General Name Role Phone Obi Miller MD Primary Care Provider [phone] Allergies Active Allergy Reactions Criticality Noted Date Comments Adhesive Tape 03/02/2018 Codeine 03/02/2018 Insulin Detemir 03/02/2018 Medications Medication Sig Dispensed Refills Start Date End Date Status ARIPiprazole (ABILIFY) 5 MG tablet Take 5 mg by mouth every morning. 3 02/03/2018 Active LEXAPRO 20 MG tablet TAKE 1 TABLET BY MOUTH EVERY DAY IN THE MORNING 5 02/15/2018 Active gabapentin (NEURONTIN) 100 MG capsule TAKE 2 CAPSULES BY MOUTH IN THE MORNING AND 3 CAPSULES AT NIGHT 3 02/01/2018 Active Insulin Glargine (BASAGLAR KWIKPEN) 100 UNIT/ML SOPN INJECT 35 UNITS INTO THE SKIN DAILY 1 01/13/2018 Active levothyroxine (SYNTHROID, LEVOXYL) tablet 112 mcg Take 112 mcg by mouth daily. 3 02/23/2018 Active simvastatin (ZOCOR) tablet 40 mg Take 40 mg by mouth every night at bedtime. 3 02/04/2018 Active omeprazole (PriLOSEC) 40 MG capsule Take 40 mg by mouth daily. 3 01/10/2018 Active FLUoxetine (PROzac) 40 MG capsule TAKE ONE CAPSULE BY MOUTH EVERY MORNING 1 11/26/2018 Active NOVOLOG 100 UNIT/ML injection INJECT 5 UNITS INTO THE SKIN 4 TIMES A DAY NEEDED BEFORE MEALS. 0 10/24/2018 Active LORazepam (ATIVAN) 0.5 MG tablet TAKE 1 TABLET BY MOUTH TWICE A DAY NEEDED 0 10/24/2018 Active LATUDA 20 MG TABS tablet TAKE 1 TABLET BY MOUTH EVERY DAY AT 5PM 0 10/24/2018 Active risperiDONE (RisperDAL) 1 MG tablet Take 1 mg by mouth every night at bedtime. 1 11/12/2018 Active solifenacin (VESICARE) 5 MG tablet Take 5 mg by mouth daily. 11 11/01/2018 Active trifluoperazine (STELAZINE) 2 MG tablet TAKE 1 TO 2 TABLETS BY MOUTH EVERY BEDTIME 1 11/06/2018 Active trifluoperazine (STELAZINE) 5 MG tablet Take 5 mg by mouth every night at bedtime. 1 10/30/2018 Active azithromycin (ZITHROMAX) 250 MG tablet TAKE 2 TABLETS BY MOUTH TODAY, THEN TAKE 1 TABLET DAILY FOR 4 DAYS 0 01/16/2019 Active BD PEN NEEDLE RIKA U/F 32G X 4 MM MISC USE DIRECTED ONCE A DAY 2 12/29/2018 Active meclizine (ANTIVERT) 25 MG tablet Take 25 mg by mouth 3 (three) times a day as needed. 3 01/07/2019 Active levoFLOXacin (LEVAQUIN) 250 MG tablet Take 250 mg by mouth daily. 0 01/21/2019 Active predniSONE (DELTASONE) tablet 10 mg PLEASE SEE ATTACHED FOR DETAILED DIRECTIONS 0 01/21/2019 Active OLANZapine (ZyPREXA) 2.5 MG tablet 0 07/23/2019 Active Active Problems Problem Noted Date Diagnosed Date Chronic pain of left ankle 01/24/2019 Family History Medical History Relation Name Comments Diabetes Brother Cancer Father Heart disease Father Hypertension Father Relation Name Status Comments Brother Father Social History Tobacco Use Types Packs/Day Years Used Date Smoking Tobacco: Never Smokeless Tobacco: Never Alcohol Use Standard Drinks/Week Comments Yes 0 (1 standard drink = 0.6 oz pur e alcohol) Sex and Gender Information Value Date Recorded Sex Assigned at Not on file Gender Identity Not on file Sexual Orientation Not on file Job Start Date Occupation Industry Not on file Not on file Not on file Last Filed Vital Signs Vital Sign Reading Time Taken Comments Blood Pressure - - Pulse - - Temperature - - Respiratory Rate - - Oxygen Saturation - - Inhaled Oxygen Concentration - - Weight 78 kg (172 lb) 08/27/2020 11:24 AM EDT Height 154.9 cm (5' 1 ) 08/27/2020 11:24 AM EDT Body Mass Index 32.5 08/27/2020 11:24 AM EDT Plan of Treatment Health Maintenance Due Date Last Done Comments Hepatitis C Screening 1950 COVID-19 Vaccine (#1) 1950 Depression Screening 1961 BMI Counseling 1967 Preventative Health Evaluation 1967 DTap / Tdap / Td (1 - Tdap) 1968 Colon Cancer Screening (Colonoscopy) 1994 Shingrix-Zoster Vaccine (1 of 2) 1999 Fall Risk Assessment 2014 Osteoporosis Screening (DEXA Scan) 2014 Pneumococcal Vaccine (1 of 1 - PCV) 2014 Influenza Vaccine (#1) 2023 RSV Adult > 60+ Yrs or Pregn ant (1 - 1-dose 75+ series) 2024 Hepatitis B Vaccines Aged Out No long er eligible based on patient's age to complete this topic RSV Ped < 20 months Aged Out No longe r eligible based on patient's age to complete this topic Guarantor Name Account Type Relation to Patient Date of Phone Billing Address Lizzette Steiner Personal/Family Self 1950 [address] [place] [address] Care Teams Assembler Installer General Relationship Specialty Start Date End Date Obi Miller MD [address] [place] [id number] PCP - General Internal Medicine 01/31/18
[2024-05-16 00:55] VITALS: BP 136/57; PULSE 74; RESP 18; TEMP 36.9; O2SAT 98
[2024-05-16 01:09] VITALS: BP 136/57; PULSE 74; RESP 18; TEMP 36.9; O2SAT 98
== END 2024-05-16 01:09 | disposition home or self-care (01) ==
PROVIDERS: Physician Assistant; Emergency Provider Emergency Medicine; PCP Hospitalist
DX: R53.1 Weakness (principal); F43.9 Reaction to severe stress, unspecified; I44.30 Unspecified atrioventricular block; R94.31 Abnormal electrocardiogram [ECG] [EKG]; Z79.899 Other long term (current) drug therapy; Z03.818 Encounter for observation for suspected exposure to other biological agents ruled out
CPT/HCPCS: 0241U; 71045; 80048; 80076; 81001; 81003; 83735; 84484; 85025; 93005; 99283; 99284

== ENCOUNTER → 2024-05-15 14:14 | Outpatient (BNV) | payer MEDICARE, OTHER, SELFPAY | PROVIDERS: PCP Hospitalist; Visit Provider Radiology Diagnostic Radiology | DX: R07.9 Chest pain, unspecified (principal) | CPT/HCPCS: 71045 ==

== ENCOUNTER → 2024-05-15 14:14 | Outpatient (BNV) | payer MEDICARE, OTHER, SELFPAY | PROVIDERS: Emergency Provider Emergency Medicine; PCP Hospitalist; Visit Provider Internal Medicine Cardiovascular Disease | DX: I44.0 Atrioventricular block, first degree (principal) | CPT/HCPCS: 93010 ==

== ENCOUNTER 2024-05-23 04:36 | Inpatient (IN) | payer MEDICARE, OTHER, SELFPAY ==
--- NOTE | 2024-05-23 | ECG_ITS ---
Test Reason : nausea/vomiting Blood Pressure : */* mmHG Vent. Rate : 72 BPM Atrial Rate : 72 BPM P-R Int : 132 ms QRS Dur : 80 ms QT Int : 428 ms P-R-T Axes : * 206 140 degrees QTcB Int : 468 ms Normal sinus rhythm Right superior axis deviation Abnormal ECG When compared with ECG of 15-May-2024 14:42, MS interval has decreased Centre change Referred By: Generic ED Physician Electronically Signed By: ROSIE CRUZ
--- NOTE | ~2024-05-23 | US_ITS ---
EXAMINATION: US ABDOMEN LIMITED CLINICAL INFORMATION: Epigastric/right upper quadrant pain. COMPARISON: 04/26/2022. Correlation made with abdomen and pelvis CT 03/01/2023. TECHNIQUE: Real-time imaging of the right upper quadrant abdominal viscera. FINDINGS: PANCREAS: Visualized portions are unremarkable. LIVER: The liver is normal in size. Liver contour is mildly macronodular. There is diffusely increased and coarsened parenchymal echogenicity. No focal hepatic lesion. There is no intrahepatic biliary duct dilatation seen. GALLBLADDER: Gallbladder demonstrates intraluminal stones, mild layering echogenic sludge, borderline wall thickening at 4 mm, without pericholecystic fluid present. There is a negative sonographic Segura's sign. COMMON BILE DUCT: Normal in caliber measuring 0.5 cm in diameter. RIGHT KIDNEY: No hydronephrosis. No renal calculi or suspicious focal parenchymal lesions. The kidney measures 10.2 cm in maximum dimension. There are several simple cysts, largest in the lower pole measuring 2.2 cm. FREE FLUID: None. US/US abdomen limited IMPRESSION: 1. Cirrhotic morphology of the liver. No suspicious lesion. 2. Gallbladder sludge, stones, and borderline wall thickening without definite sonographic evidence of acute cholecystitis. Negative sonographic Segura sign. Recommend correlation with HIDA if there is high clinical suspicion. 3. No biliary dilatation. 4. There are are left renal cysts. Electronically signed by: Pete Luo MD 05/23/2024 11:05 AM [facility]
--- NOTE | ~2024-05-23 | NM_ITS ---
CLINICAL HISTORY: US showing GB sludge, stones, wall thickening NM HIDA Scan Comparison: None Technique: US showing GB sludge, stones, wall thickening (Hx) / Dynamic 0-60 MIN (DICOM Hx) (DICOM Hx) Findings: Normal liver uptake, distribution, and excretion. No filling of the gallbladder. There is normal filling of the bowel which is nondistended. IMPRESSION: No evidence of gallbladder filling, consistent with acute cholecystitis in the appropriate clinical setting. This document has been electronically signed by: Jose Carlos Clarke MD on 05/23/2024 18:31:32
--- OUTSIDE RECORDS SUMMARY | 2024-05-23 05:16 | XMS_ITS ---
Demographics Address [address] [place], [place] Mobile Email Address Preferred Language en Marital Status Unknown Anglican Affiliation Unknown Race White Ethnic Group Unknown Author Organization [facility] Address [address] [place] [address] Care Team Providers Care General Production Worker Name Role Phone BHARATICARYN Primary Care Provider [phone] REASON FOR VISIT Anti Emetic medication Medications Medication SIG (Take, Route, Fr equency, Duration) Notes Start Date End Date Status Ondansetron HCl 4 MG 1 tablet Orally twi ce a day for 15 days 05/22/2024 Active Encounters Encounter Location Date Provider Diagnosis [facility] [address] [address] 05/22/2024 CARYN CALABRESE Plan Of Treatment Medication Medication Name Sig Start Date Stop Date Notes Ondansetron HCl 4 MG 1 tablet Orally twi ce a day for 15 days 05/22/2024 Next Appt Details Provider Name:Ángel Box, Tanisha 06/11/2024 02:15:00 PM, [address] [place] [address], [place], [address], Progress Notes * Alvaro MOSQUERAB:[birth year] 49 (74 yo F)Acc No.[id number]:05/22/2024 Patient:?EVELINE Lizzette :1950???Age:74 Y???Sex:Female Address:[address] [place], [place] * Refills? Start Ondansetron HCl Tablet, 4 MG, Orally, 30 Tablet, 1 tablet, twice a day, 15 days, Refills=1 * true * Date:? Generated for Printi ng/Charis/Sydneeitting on:?05/23/2024 05:16 AM EST
--- OUTSIDE RECORDS SUMMARY | 2024-05-23 05:16 | XMS_ITS | Clinical Summary ---
Demographics Address [address] [place] [address] Home Phone Email Address Preferred Language Portuguese Marital Status Presybeterian Affiliation Unknown Race White Ethnic Group Not or Lati no Author Organization [facility] Address [address] [place] [address] Support Name Relationship Address Phone Rigo Steiner Emergency Contact [address] [facility] [place] [address] Care Team Providers Care Power Transformer Inspector Name Role Phone Obi Miller MD Primary Care Provider [phone] Allergies Active Allergy Reactions Criticality Noted Date [...] Lizzette Steiner Personal/Family Self 1950 [address] [place] [address] Care Teams Power Transformer Inspector Relationship Specialty Start Date End Date Obi Miller MD [address] [place] [id number] PCP - General Internal Medicine 01/31/18
--- OUTSIDE RECORDS SUMMARY | 2024-05-23 05:16 | XMS_ITS ---
Demographics Address [address] [place], [place] Mobile Email Address Preferred Language en Marital Status Unknown Hoahaoism Affiliation Unknown Race White Ethnic Group Unknown Author Organization [facility] Address [address] [place] [address] Care Team Providers Care Pneumatic Tester Name Role Phone CARYN CALABRESE Primary Care Provider Encounters Encounter Location Date Provider Diagnosis [facility] [address] [address] 04/05/2024 CARYN CALABRESE Plan Of Treatment Next Appt Details Provider Name:Ángel Chenkalie, 0 06/11/2024 02:15:00 PM, [address] [place] [address], [place], [address], Progress Notes * Edda MOSQUERA:[birth year] 49 (73 yo F)Acc No.[id number]:04/05/2024 Patient:?STEFFPete CHENa :1950???Age:73 Y???Sex:Female Address:[address] [place] [address] * true * Date:? Generated for Royer cruz/Charis/eTransmitting on:?05/23/2024 05:16 AM EST
--- OUTSIDE RECORDS SUMMARY | 2024-05-23 05:16 | XMS_ITS ---
Demographics Address [address] [place] [address] Mobile Email Address Preferred Language en Marital Status Unknown Buddhism Affiliation Unknown Race White Ethnic Group Unknown Author Organization [facility] Address [address] [facility] [address] [place] [address] Care Team Providers Care Oracle Database Consultant Name Role Phone CARYN CALABRESE Primary Care Provider [phone] AnabellekalieÁngel Unavailable [phone] Allergies Allergen (clinical drug ingredient) Drug/Non Drug Allergy documented on EMR Reaction Allergy Type Onset Date Status Adhesive Unknown Allergy Active codeine Codeine Unknown Drug Allergy Active oxycodone Oxycodone Unknown Drug Allergy Active REASON FOR VISIT [facility]; Notes requested Medications Medication SIG (Take, Route, Frequency, Duration) Notes Start Date End Date Status ZyrTEC Allergy 10 MG 1 tablet Orally Onc e a day Not-Taking Vitamin B6 100 MG 1 tablet Orally Once a day Active Vitamin D3 50 MCG (1999 UT) 1 tablet Orally Once a day Active Latuda 20 MG 1 tablet in the evening with food Orally Once a day Not-Taking Lasix 20 MG 1 tablet Orally Once a day Active Fish Oil 1000 MG 1 capsule Orally Once a day Not-Taking Magnesium 400 MG 1 capsule Orally once a day for 30 days Active Sucralfate 1 GM 1 tablet on an empty stomach Orally Twice a day for 30 days 02/10/2023 Not-Taking NexIUM 40 MG 1 capsule Orally Once a day for 30 days 02/10/2023 Not-Taking Centrum Silver - as directed Orally Not-Taking traMADol HCl 50 MG 1/2 tablet Orally Once a day for 5 days 04/03/2024 Active Fluocinolone Acetonide 0.025 % APPLY AM AND PM TO VAGINAL/ANAL AREA TWICE WEEKLY (MONDAY & MONDAY) FOR 2 WEEKS. THEN STARTING WEEK 3 USE AM & PM MONDAY, MONDAY, MONDAY UNTIL APPOINTMENT for 21 Active Fluocinolone Acetonide 0.025 % 1 application Externally Twice a day for 30 days 03/15/2024 Active traMADol HCl 25 MG as directed Orally once a day for 5 days 04/03/2024 Active Diclofenac Sodium 75 MG 1 tablet Orally Twice a day for 30 days Active [facility] Glucose Meter Test Strips - as directed 3 times a day for 90 days e11.9 Active BD Pen Needle Short U/F 31G X 8 MM use to inject insulin daily dx: E08.40 for 30 days 12/18/2023 Active Levothyroxine Sodium 125 MCG 1 tablet in the morning on an empty stomach Orally Once a day for 90 days Active Gabapentin 400 MG TAKE 1 CAPSULE BY MOUTH 3 TIMES A DAY FOR 30 DAYS for 30 Active OneTouch Ultra Blue - Use 2-3 times a da y In Vitro for 90 days 10/27/2023 Active Basaglar KwikPen 100 UNIT/ML 50 units Subcutaneous once a day for 30 days Active hydrOXYzine HCl 25 MG 1 tablet as needed Orally Once a day for 30 days Active Lidoderm 5 % 1 patch remove after 12 hours Externally Once a day 06/13/2023 Active Cymbalta 30 MG 1 capsule Orally 2 times a day 03/28/2023 Not-Taking Simvastatin 40 MG 1 tablet in the evening Orally Once a day for 90 days Active Acetaminophen ER 650 MG 2 tablets as needed Orally every 8 hrs Active Xyzal Allergy 24HR 5 MG 1 tablet in the evening Orally Once a day Active Aspirin Adult Low Dose 81 MG 1 tablet Orally Once a day Active Colace 100 MG 1 capsule as needed Orally Once a day Active LORazepam 0.5 MG 1 tablet Orally daily prn & [address] Gennaro Chow Active Omeprazole 40 MG 1 capsule 30 minutes before morning meal Orally Once a day Active Problems Problem Type SNOMED Code ICD Code Onset Dates Problem Status W/U Status Risk Notes Problem Schizoaffective disorder, depressive type (42933194) Schizoaffective disorder, depressive type (F25.1) Active confirmed Problem Secondary diabetes mellitus (1559000) Diabetes mellitus due to underlying condition with hyperglycemia (E08.65) Active confirmed Vital Signs Temperature 98.4 degrees Fahrenheit 05/17/19 25 Oximetry 99 % 05/17/2024 Heart Rate 67 /min 05/17/2024 Blood pressure systolic 120 mm Hg 05/17/19 25 Blood pressure diastolic 72 mm Hg 025 Weight 164.0 lbs 05/17/2024 BMI 30.98 kg/m2 05/17/2024 Height 5'1'' in 05/17/2024 Encounters Encounter Location Date Provider Diagnosis [facility] [address] [place] [address] 05/17/2024 [facility] discharge follow-up Z09 ; Schizoaffective disorder, depressive type F25.1 ; Generalized anxiety disorder F41.1 and Diabetes mellitus due to underlying condition with hyperglycemia E08.65 Assessments Encounter Date Diagnosis (ICD Code) Assessment Notes Treatment Notes Treatment Clinical Notes Section Notes 05/17/2024 Hospital discharge follow-up (ICD-10 - Z09) 74 years old lady With insulin-dependent DM type II, hypertension, hyperlipidemia, hypothyroidism generalized anxiety disorder, acid reflux schizoaffective disorder who was seen in the [facility] emergency room on a 05/15 24 for extreme fatigue weakness and then went to [facility] on 05/16/24 for the same complaints is here for posthospital discharge follow-up. Post discharge Hospital follow-up 7 days fatigue weakness poor appetite due to dehydration possible withdrawal from abruptly stopping Cymbalta, in increased dose of Latuda and then discontinuing Latuda completely All lab work has been unremarkable no evidence of any infection notes from [facility] has been reviewed. Discussed at length with the family who is accompanying the patient cousin Kim who is a nurse and the son-in-law Patient is already feeling better, she does not want to continue Cymbalta as that was giving her a lot of diarrhea. She will resume Latuda 20 mg daily and will follow up in a week to 2 weeks with her psychiatrist for further adjustment or adding another medication for depression. She will continue to take increase fluid intake. Her mental status is at baseline this no evidence of any focal deficit. Insulin-dependent diabetes mellitus. she takes 50 units in the morning, due to poor appetite she reduced the dose to 46 units for blood sugars in the morning are 126 she can continue the dose if the blood sugar still ranges between 110-120 however once her appetite improves and if the blood sugars are rising she should go back to her 50 units dose in the morning Social issues patient's has dementia and cannot help the patient with meal preparations. Family is in the process of obtaining a health aide for meal prep and other services. Plan of care was discussed in detail with patient and her family was present in the room today 05/17/2024 Schizoaffective disorder, depressive type (ICD-10 - F25.1) 74 years old lady With insulin-dependent DM type II, hypertension, hyperlipidemia, hypothyroidism generalized anxiety disorder, acid reflux schizoaffective disorder who was seen in the [facility] emergency room on a 05/15 24 for extreme fatigue weakness and then went to [facility] on 05/16/24 for the same complaints is here for posthospital discharge follow-up. Post discharge Hospital follow-up 7 days fatigue weakness poor appetite due to dehydration possible withdrawal from abruptly stopping Cymbalta, in increased dose of Latuda and then discontinuing Latuda completely All lab work has been unremarkable no evidence of any infection notes from [facility] and [facility] has been reviewed. Discussed at length with the family who is accompanying the patient cousin Kim who is a nurse and the son-in-law Patient is already feeling better, she does not want to continue Cymbalta as that was giving her a lot of diarrhea. She will resume Latuda 20 mg daily and will follow up in a week to 2 weeks with her psychiatrist for further adjustment or adding another medication for depression. She will continue to take increase fluid intake. Her mental status is at baseline this no evidence of any focal deficit. Insulin-dependent diabetes mellitus. she takes 50 units in the morning, due to poor appetite she reduced the dose to 46 units for blood sugars in the morning are 126 she can continue the dose if the blood sugar still ranges between 110-120 however once her appetite improves and if the blood sugars are rising she should go back to her 50 units dose in the morning Social issues patient's has dementia and cannot help the patient with meal preparations. Family is in the process of obtaining a health aide for meal prep and other services. Plan of care was discussed in detail with patient and her family was present in the room today 05/17/2024 Generalized anxiety disorder (ICD-10 - F41.1) 74 years old lady With insulin-dependent DM type II, hypertension, hyperlipidemia, hypothyroidism generalized anxiety disorder, acid reflux schizoaffective disorder who was seen in the [facility] emergency room on a 05/15 24 for extreme fatigue weakness and then went to [facility] on 05/16/24 for the same complaints is here for posthospital discharge follow-up. Post discharge Hospital follow-up 7 days fatigue weakness poor appetite due to dehydration possible withdrawal from abruptly stopping Cymbalta, in increased dose of Latuda and then discontinuing Latuda completely All lab work has been unremarkable no evidence of any infection notes from [facility] has been reviewed. Discussed at length with the family who is accompanying the patient cousin Kim who is a nurse and the son-in-law Patient is already feeling better, she does not want to continue Cymbalta as that was giving her a lot of diarrhea. She will resume Latuda 20 mg daily and will follow up in a week to 2 weeks with her psychiatrist for further adjustment or adding another medication for depression. She will continue to take increase fluid intake. Her mental status is at baseline this no evidence of any focal deficit. Insulin-dependent diabetes mellitus. she takes 50 units in the morning, due to poor appetite she reduced the dose to 46 units for blood sugars in the morning are 126 she can continue the dose if the blood sugar still ranges between 110-120 however once her appetite improves and if the blood sugars are rising she should go back to her 50 units dose in the morning Social issues patient's has dementia and cannot help the patient with meal preparations. Family is in the process of obtaining a health aide for meal prep and other services. Plan of care was discussed in detail with patient and her family was present in the room today 05/17/2024 Diabetes mellitus due to underlying condition with hyperglycemia (ICD-10 - E08.65) 74 years old lady With insulin-dependent DM type II, hypertension, hyperlipidemia, hypothyroidism generalized anxiety disorder, acid reflux schizoaffective disorder who was seen in the [facility] emergency room on a 05/15 24 for extreme fatigue weakness and then went to [facility] on 05/16/24 for the same complaints is here for posthospital discharge follow-up. Post discharge Hospital follow-up 7 days fatigue weakness poor appetite due to dehydration possible withdrawal from abruptly stopping Cymbalta, in increased dose of Latuda and then discontinuing Latuda completely All lab work has been unremarkable no evidence of any infection notes from [facility] has been reviewed. Discussed at length with the family who is accompanying the patient cousin Kim who is a nurse and the son-in-law Patient is already feeling better, she does not want to continue Cymbalta as that was giving her a lot of diarrhea. She will resume Latuda 20 mg daily and will follow up in a week to 2 weeks with her psychiatrist for further adjustment or adding another medication for depression. She will continue to take increase fluid intake. Her mental status is at baseline this no evidence of any focal deficit. Insulin-dependent diabetes mellitus. she takes 50 units in the morning, due to poor appetite she reduced the dose to 46 units for blood sugars in the morning are 126 she can continue the dose if the blood sugar still ranges between 110-120 however once her appetite improves and if the blood sugars are rising she should go back to her 50 units dose in the morning Social issues patient's has dementia and cannot help the patient with meal preparations. Family is in the process of obtaining a health aide for meal prep and other services. Plan of care was discussed in detail with patient and her family was present in the room today Plan Of Treatment Next Appt Details Follow Up: 6 Months, Reason: Provider Name:Tanisha Honeycutt 06/11/2024 02:15:00 PM, [address] [place] [address], [id number], Progress Notes * Pete MOSQUERADavidB:[birth year] (74 yo F)Acc No.[id number]:05/17/2024 Patient:Lizzette FRANCISCO Provider:?Ángel Bxo :1950???Age:74 Y???Sex:Female D ate:05/17/2024 Address:[address] [place], [place]-[id number] Pcp:CARYN CALABRESE Subjective: * Chief Complaints: * ???[facility]; Notes requested * HPI: ???Internal Medicine:?Ms. Mosquera is 74? years old lady With insulin-dependent DM type II, hypertension, hyperlipidemia, hypothyroidism generalized anxiety disorder, acid reflux? schizoaffective disorder who was seen in the [facility] emergency room on a 05/15 25 for mental status changes and generalized weakness. patient has been taking her Latuda 20 mg daily she is followed by a psychiatrist Dr. Rigo Almonte and most of her care is over the phone and has had psychiatrist has moved to [place].? Patient was also on Cymbalta due to ongoing diarrhea it was stopped and Latuda was increased to 40 mg.? Patient then developed severe fatigue and weakness mostly not eating and sleeping she also developed nausea and lack of appetite. patient to stop taking Latuda for 3 weeks.?She went to [facility] where all the testing including EKG lab work chest x-ray which were all unremarkable.? Patient psychiatrist was restarted who recommended to? restart Latuda at a lower dose of 20 mg daily however patient did not start it yet. On 05/16/24 she went to [facility] due to increased nausea weakness.? She was seen again in the ER multiple testing was done lab work was unremarkable.? The impression was patient most Klever was dehydrated and also had some withdrawal effects from abruptly stopping Latuda and Cymbalta. She took PPIs, reached out to her psychiatrist were recommended to restart her home medication of low-dose Latuda 20 mg daily patient is here today for hospital follow-up and to further discuss the plan of her medications.patient is also on insulin 50 units in the morning and due to poor appetite she has been taking 46 unit her blood sugars has been ranging from 118-126. * ROS:?General/Constitutional:?Patient denies?feeling better since hospital discharge no further nausea.?Overall health?Good.?Change in appetite?denies.?Chills?denies.?Fever?denies.?Night sweats?denies.?Sleep disturbance?denies. Weight gain?denies.?Weight loss?denies.?Neurologic:?Difficulty speaking?denies.?Dizziness?denies.?Gait abnormality?denies.?Headache?denies.?Loss of strength?denies.?Memory loss?admits.?Seizures?denies.?Tingling/Numbness?denies .?Ophthalmologic:?Blurred vision?denies.?Red eye?denies.?ENT:?Change in Voice?Denies.?Cold Symptoms?Denies.?Cough?Denies.?Dizziness?Denies.?Nasal Congestion?Denies.?Otalgia?Denies.?postnasal drip?Denies.?Blocked ear?denies.?Nosebleed?denies.?Snoring?denies.?Cardiovascular:?Diaphoresis?Denies.?Pedal Edema?Denies.?PND (Paroxsymal nocturnal dyspnea)?Denies.?Chest pain?denies.?Difficulty laying flat?denies.?Dyspnea on exertion?denies.?Heart murmur?denies.?Orthopnea?denies.?Respiratory:?Snoring?denies.?Asthma?denies.?Cough?denies.?Shortness of breath with exertion?denies.?Sputum production?denies.?Wheezing?denies.?Gastrointestinal:?Change in bowel habits?denies.?Constipation?denies.?Decreased appetite?denies.?Diarrhea?denies.?Heartburn?denies.?Nausea?denies.?Vomiting?cory es.?Musculoskeletal:?tingling/numbness?Denies.?myalgias?Denies.?Joint Swelling?Denies.?extremeties?normal.?Arthritis?,admits.?Back problems?denies.?Carpal tunnel?denies.?Joint stiffness?denies.?Muscle aches?denies.?Endocrine:?Bowel Changes?Denies.?Breast Discharge?Denies.?poor libido?Denies.?Cold intolerance?denies.?Excessive sweating?denies.?Excessive thirst?denies.?Frequent urination?denies.?Thyroid problems?denies.?Skin:?Bruising?Denies.?Eczema?denies.?Hair changes?denies.?Rash?denies.?Skin lesion(s)?denies.?Psychiatric:?Anxiety?denies.?Depressed mood?denies.?Difficulty sleeping?denies.?Nervous breakdown?denies.?Substance abuse?denies.?Urology:?abnormal menstrual bleeding?denies.?blood in urine?denies.?burning on urination?denies.?difficulty urinating?denies.?discharge?denies.?dysuria?denies.? * Medical History:? * Medications:?TakingVitamin D 3 50 MCG (1999 UT) Tablet 1 tablet Orally Once a day Vitamin B6 100 MG Tablet 1 tablet Orally Once a day Lasix 20 MG Tablet 1 tablet Orally Once a day Omeprazole 40 MG Capsule Delayed Release 1 capsule 30 minutes before morning meal Orally Once a day Xyzal Allergy 24HR 5 MG Tablet 1 tablet in the evening Orally Once a day Acetaminophen ER 650 MG Tablet Extended Release 2 tablets as needed Orally every 8 hrs Colace 100 MG Capsule 1 capsule as needed Orally Once a day Aspirin Adult Low Dose 81 MG Tablet Delayed Release 1 tablet Orally Once a day LORazepam 0.5 MG Tablet 1 tablet Orally daily prn & 1 mg at night , Notes to Pharmacist: Dr Burdick PsyhydrOXYzine HCl 25 MG Tablet 1 tablet as needed Orally Once a day Lidoderm 5 % Patch 1 patch remove after 12 hours Externally Once a day Simvastatin 40 MG Tablet 1 tablet in the evening Orally Once a day Basaglar KwikPen 100 UNIT/ML Solution Pen-injector 50 units Subcutaneous once a day [facility] Glucose Meter Test Strips - Strip as directed 3 times a day e11.9Levothyroxine Sodium 125 MCG Tablet 1 tablet in the morning on an empty stomach Orally Once a day BD Pen Needle Short U/F 31G X 8 MM Miscellaneous use to inject insulin daily dx: E08.40 OneTouch Ultra Blue - Strip Use 2-3 times a day In Vitro Gabapentin 400 MG Capsule TAKE 1 CAPSULE BY MOUTH 3 TIMES A DAY FOR 30 DAYS Fluocinolone Acetonide 0.025 % Cream 1 application Externally Twice a day Fluocinolone Acetonide 0.025 % Ointment APPLY AM AND PM TO VAGINAL/ANAL AREA TWICE WEEKLY (MONDAY & MONDAY) FOR 2 WEEKS. THEN STARTING WEEK 3 USE AM & PM MONDAY, MONDAY, MONDAY UNTIL APPOINTMENT Diclofenac Sodium 75 MG Tablet Delayed Release 1 tablet Orally Twice a day traMADol HCl 25 MG Tablet as directed Orally once a day traMADol HCl 50 MG Tablet 1/2 tablet Orally Once a day Magnesium 400 MG Tablet 1 capsule Orally once a day Taking Vitamin D3 50 MCG (1999 UT) Tablet 1 tablet Orally Once a day Taking Vitamin B6 100 MG Tablet 1 tablet Orally Once a day Taking Lasix 20 MG Tablet 1 tablet Orally Once a day Taking Omeprazole 40 MG Capsule Delayed Release 1 capsule 30 minutes before morning meal Orally Once a day Taking Xyzal Allergy 24HR 5 MG Tablet 1 tablet in the evening Orally Once a day Taking Acetaminophen ER 650 MG Tablet Extended Release 2 tablets as needed Orally every 8 hrs Taking Colace 100 MG Capsule 1 capsule as needed Orally Once a day Taking Aspirin Adult Low Dose 81 MG Tablet Delayed Release 1 tablet Orally Once a day Taking LORazepam 0.5 MG Tablet 1 tablet Orally daily prn & 1 mg at night , Notes to Pharmacist: Dr Burdick PsyTaking hydrOXYzine HCl 25 MG Tablet 1 tablet as needed Orally Once a day Taking Lidoderm 5 % Patch 1 patch remove after 12 hours Externally Once a day Taking Simvastatin 40 MG Tablet 1 tablet in the evening Orally Once a day Taking Basaglar KwikPen 100 UNIT/ML Solution Pen-injector 50 units Subcutaneous once a day Taking [facility] Glucose Meter Test Strips - Strip as directed 3 times a day e11.9Taking Levothyroxine Sodium 125 MCG Tablet 1 tablet in the morning on an empty stomach Orally Once a day Taking BD Pen Needle Short U/F 31G X 8 MM Miscellaneous use to inject insulin daily dx: E08.40 Taking OneTouch Ultra Blue - Strip Use 2-3 times a day In Vitro Taking Gabapentin 400 MG Capsule TAKE 1 CAPSULE BY MOUTH 3 TIMES A DAY FOR 30 DAYS Taking Fluocinolone Acetonide 0.025 % Cream 1 application Externally Twice a day Taking Fluocinolone Acetonide 0.025 % Ointment APPLY AM AND PM TO VAGINAL/ANAL AREA TWICE WEEKLY (MONDAY & MONDAY) FOR 2 WEEKS. THEN STARTING WEEK 3 USE AM & PM MONDAY, MONDAY, MONDAY UNTIL APPOINTMENT Taking Diclofenac Sodium 75 MG Tablet Delayed Release 1 tablet Orally Twice a day Taking traMADol HCl 25 MG Tablet as directed Orally once a day Taking traMADol HCl 50 MG Tablet 1/2 tablet Orally Once a day Taking Magnesium 400 MG Tablet 1 capsule Orally once a day Not-TakingLatuda 20 MG Tablet 1 tablet in the evening with food Orally Once a day Cymbalta 30 MG Capsule Delayed Release Particles 1 capsule Orally 2 times a day Fish Oil 1000 MG Capsule 1 capsule Orally Once a day NexIUM 40 MG Capsule Delayed Release 1 capsule Orally Once a day Sucralfate 1 GM Tablet 1 tablet on an empty stomach Orally Twice a day Centrum Silver - Tablet as directed Orally ZyrTEC Allergy 10 MG Tablet 1 tablet Orally Once a day Medication List reviewed and reconciled with the patientNot-Taking Latuda 20 MG Tablet 1 tablet in the evening with food Orally Once a day Not-Taking Cymbalta 30 MG Capsule Delayed Release Particles 1 capsule Orally 2 times a day Not-Taking Fish Oil 1000 MG Capsule 1 capsule Orally Once a day Not-Taking NexIUM 40 MG Capsule Delayed Release 1 capsule Orally Once a day Not-Taking Sucralfate 1 GM Tablet 1 tablet on an empty stomach Orally Twice a day Not-Taking Centrum Silver - Tablet as directed Orally Not-Taking ZyrTEC Allergy 10 MG Tablet 1 tablet Orally Once a day Medication List reviewed and reconciled with the patient * Allergies:?Codeine: AllergyA dhesive: AllergyOxycodone: Allergyno[Allergies Verified] Objective: * Vitals:?Temp:98.4F, Oxygen s at %:99%, HR:67/min, BP:120/72mm Hg, Wt:164.0lbs, BMI:30.98Index, Ht: 5'1''. * Examination: ???General Examination: ?Psychiatry?Normal.?GENERAL APPEARANCE:?Well developed, well nourished, in no acute distress.?MUSCULOSKELETAL:?, normal.?HEAD:?Normocephalic, atraumatic.?EYES:?Pupils equal, round, reactive to light and accommodation, sclera non-icteric,.?EARS:?Normal.?ORAL CAVITY:?Normal.?THROAT:?Clear.?OROPHARYNX?Normal.?SINUSES?Normal.?NECK/THYROID:?Neck supple, full range of motion, no cervical lymphadenopathy.?SKIN:?Warm and dry, no suspicious lesions.?HEART:?Normal.?LUNGS:?Normal.?BREASTS:?__.?ABDOMEN:?Soft, nontender, nondistended, bowel sounds present, normal.?EXTREMITIES:?heberden's nodes.?PERIPHERAL PULSES:?Normal.?NEUROLOGIC:?Nonfocal,? appropriate?motor strength normal upper and lower extremities, sensory exam intact.?FEMALE GENITOURINARY:?__.?MALE GENITOURINARY:?__.?PODIATRIC:?Normal.?Sheet Turner? .? Assessment: * Assessment: 1.?Hospital discharge follow -up - Z09 (Primary)???2.?Schizoaffective disorder, depressive type - F25.1???3.?Generalized anxiety disorder - F41.1???4.?Diabetes mellitus due to underlying condition with hyperglycemia - E08.65??? 74? years old lady With insu emilee-dependent DM type II, hypertension, hyperlipidemia, hypothyroidism generalized anxiety disorder, acid reflux? schizoaffective disorder who was seen in the [facility] emergency room on a 05/15 24 for extreme fatigue weakness and then went to [facility] on 05/16/24 for the same complaints is here for posthospital discharge follow-up. Post discharge Hospital follow-up 7 days? fatigue weakness poor appetite due to dehydration possible withdrawal from abruptly stopping Cymbalta, in increased dose of Latuda and then discontinuing Latuda completely All lab work has been unremarkable no evidence of any infection notes from [facility] has been reviewed. Discussed at length with the family who is accompanying the patient cousin Kim who is a nurse and the son-in-law Patient is already feeling better, she does not want to continue Cymbalta as that was giving her a lot of diarrhea.? She will resume Latuda 20 mg daily and will follow up in a week to 2 weeks with her psychiatrist for further adjustment or adding another medication for depression.? She will continue to take increase fluid intake.? Her mental status is at baseline this no evidence of any focal deficit. Insulin-dependent diabetes mellitus. she takes 50 units in the morning, due to poor appetite she reduced the dose to 46 units for blood sugars in the morning are 126 she can continue the dose if the blood sugar still ranges between 110-120 however once her appetite improves and if the blood sugars are rising she should go back to her 50 units dose in the morning Social issues patient's has dementia and cannot help the patient with meal preparations.? Family is in the process of obtaining a health aide for meal prep and other services. Plan of care was discussed in detail with patient and her family was present in the room today Plan: * Treatment: * Procedure Codes:?37445 (COVI D_19) TRANS CARE MGMT 7 DAY DISCH * Follow Up:?6 Months * * Sign off status: Completed true * Provider:?Ángel Box, Date:?05/17/2024 Generated for Royer cruz/Charis/Sydneeitting on:?05/23/2024 05:16 AM EST History and Physical Notes * HPI (History of Present Illness) Category Sub-Category Detail Notes Category Not es Internal Medicine Ms. Mosquera is 74 years old lady With insulin-dependent DM type II, hypertension, hyperlipidemia, hypothyroidism generalized anxiety disorder, acid reflux schizoaffective disorder who was seen in the [facility] emergency room on a 05/15 24 for mental status changes and generalized weakness. patient has been taking her Latuda 20 mg daily she is followed by a psychiatrist Dr. Rigo Almonte and most of her care is over the phone and has had psychiatrist has moved to [place]. Patient was also on Cymbalta due to ongoing diarrhea it was stopped and Latuda was increased to 40 mg. Patient then developed severe fatigue and weakness mostly not eating and sleeping she also developed nausea and lack of appetite. patient to stop taking Latuda for 3 weeks. She went to [facility] where all the testing including EKG lab work chest x-ray which were all unremarkable. Patient psychiatrist was restarted who recommended to restart Latuda at a lower dose of 20 mg daily however patient did not start it yet. On 05/16/24 she went to [facility] due to increased nausea weakness. She was seen again in the ER multiple testing was done lab work was unremarkable. The impression was patient most Klever was dehydrated and also had some withdrawal effects from abruptly stopping Latuda and Cymbalta. She took PPIs, reached out to her psychiatrist were recommended to restart her home medication of low-dose Latuda 20 mg daily patient is here today for hospital follow-up and to further discuss the plan of her medications.patient is also on insulin 50 units in the morning and due to poor appetite she has been taking 46 unit her blood sugars has been ranging from 118-126 Examination Category Sub-Category Detail Notes Category Not es General Examination GENERAL APPEARANCE: Well dev eloped, well nourished, in no acute distress HEAD: Normocephalic, atrau matic EYES: Pupils equal, round, reactive to light and accommodation, sclera non-icteric, EARS: Normal THROAT: Clear NECK/THYROID: Neck supple, full ra nge of motion, no cervical lymphadenopathy HEART: Normal LUNGS: Normal ABDOMEN: Soft, nontender, non distended, bowel sounds present, normal NEUROLOGIC: Nonfocal, appropriat e motor strength normal upper and lower extremities, sensory exam intact SKIN: Warm and dry, no ina picious lesions EXTREMITIES: heberden's nodes PERIPHERAL PULSES: Normal BREASTS: __ MUSCULOSKELETAL: , normal MALE GENITOURINARY: __ FEMALE GENITOURINARY: __ ORAL CAVITY: Normal PODIATRIC: Normal Psychiatry Normal OROPHARYNX Normal SINUSES Normal Sheet Turner
--- OUTSIDE RECORDS SUMMARY | 2024-05-23 05:16 | XMS_ITS | Patient Health Record ---
Demographics Address [address] [place] [address] Email Address Preferred Language en Marital Status Presybeterian Affiliation Unknown Race White Ethnic Group Not or Lati no Author [facility] Address [address] [facility] [place] [address] Support Name Relationship Address Phone Rigo Jin Emergency Contact [address] [place] [address] Lizzette Steiner Guarantor Unknown Care Team Providers Care Waist Fitter Name Role Phone Noah Ortega Primary Care Provider Cedric Rueda Unavailable [phone] Allergies Allergen (clinical drug ingredient) Drug/Non Drug [...] Status Risk Notes Problem Contusion of foot (58499284) Contusion of foot (924.20) Active confirmed Problem Edema (63664121) Edema (782.3) Active confirmed Problem Neurologic disorder associated with type II diabetes mellitus (276643849) Diabetic - NIDDM/Neuropathy (250.60) Active confirmed Problem Polyneuropathy due to type 2 diabetes mellitus (139951367) Type 2 diabetes mellitus with diabetic polyneuropathy (E11.42) Active confirmed Vital Signs Height 5 ft 1 in in 06/07/2023 Weight 155 lbs 06/07/2023 BMI 29.28 kg/m2 06/07/2023 Encounters Encounter Location Date Provider Diagnosis [facility] [address] [place] [address] 06/07/2023 Cedric Sosa Type 2 diabetes mellitus [...] Medicare [employer] [address] [facility] [place] [address] [id number] Lizzette Steiner Self - patient is the insured [facility] [address] [place] [address] [id number] Rigo Steiner Spouse - patient is the spouse of the insured Medical (General) History Medical History History ICD Code breast cancer chicken pox thyroid disorder measles diabetic depression Anxiety Arthritis asthma Back,Hip,and Knee pain Cataracts Depression Fibromyalgia Numbness Psychiatric disorder Hearing loss Surgical History Surgery Date(Month/Year) right mastectomy Left shoulder 3 Spurs
--- OUTSIDE RECORDS SUMMARY | 2024-05-23 05:16 | XMS_ITS ---
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 Generated for Royer cruz/Charis/eTransmitting on:?05/23/2024 05:16 AM EST
--- OUTSIDE RECORDS SUMMARY | 2024-05-23 05:17 | XMS_ITS | Patient Health Record ---
Demographics Address [address] [place], [place] Mobile Email Address Preferred Language en Marital Status Unknown Samaritan Affiliation Unknown Race White Ethnic Group Unknown Author Organization [facility] Address [address] [facility] [address] [place] [address] Care Team Providers Care Case Specialist Name Role Phone BHARATI RUBIN Primary Care Provider Ángel Box Unavailable [phone] Salvador Herson Unavailable [phone] Allergies Allergen (clinical drug ingredient) Drug/Non Drug Allergy documented on EMR Reaction Allergy Type Onset Date Status Adhesive Unknown Allergy Active codeine Codeine Unknown Drug Allergy Active oxycodone Oxycodone Unknown Drug Allergy Active Results Component Value Reference Range Notes Hemoglobin [id number] Reviewed date:06/16/2023 12:38:04 PM Interpretation: Performing Lab:[facility], [facility], Phone - [phone], Director - Hilariodry Notes/Report: Hemoglobin A1c 6.6 4.8-5.6 % . Prediabetes: 5.7 - 6.4 Diabetes: >6.4 Glycemic control for adults with diabetes: <7.0 [id number] Reviewed date:06/16/2023 02:24:30 PM Interpretation: Performing Lab:[facility], [address] [facility], [place], Phone - [phone], Director - MDJodry Notes/Report: Magnesium 1.2 1.6-2.3 mg/dL Basic Metabolic Panel (7)-30 3211 Reviewed date:06/21/2023 09:36:25 AM Interpretation: Performing Lab:[facility], [address] [facility], [place], Phone - [phone], Director - MDJodry Notes/Report: Glucose 177 70-99 mg/dL BUN 31 8-27 mg/dL Creatinine 1.01 0.57-1.00 mg/dL eGFR 58 >59 mL/min/1.73 BUN/Creatinine Ratio 31 12-28 Sodium 140 134-144 mmol/L Potassium 4.4 3.5-5.2 mmol/L Chloride 104 96-106 mmol/L Carbon Dioxide, Total 18 20-29 mmol/L Hemoglobin [id number] Reviewed date:12/12/2023 08:24:15 AM Interpretation: Performing Lab:[facility], [address] [place] [address], Phone - [phone], Director - Ruthy Notes/Report: Clinical Information:SRC: Hemoglobin A1c 7.5 4.8-5.6 % . Prediabetes: 5.7 - 6.4 Diabetes: >6.4 Glycemic control for adults with diabetes: <7.0 [id number] Reviewed date:12/12/2023 07:57:52 AM Interpretation: Performing Lab:[facility], [address] [place] [address], [place], Phone - [phone], Director - Ruthy Notes/Report: Clinical Information:SRC: Magnesium 1.6 1.6-2.3 mg/dL Basic Metabolic Panel (7)-30 3758 Reviewed date:12/12/2023 08:24:30 AM Interpretation: Performing Lab:[facility], [address] [place] [address], [place], Phone - [phone], Director - Ruthy Notes/Report: Clinical Information:SRC: Glucose 160 70-99 mg/dL BUN 22 8-27 mg/dL Creatinine 1.09 0.57-1.00 mg/dL eGFR 53 >59 mL/min/1.73 BUN/Creatinine Ratio 20 12-28 Sodium 143 134-144 mmol/L Potassium 4.7 3.5-5.2 mmol/L Chloride 104 96-106 mmol/L Carbon Dioxide, Total 22 20-29 mmol/L Reason For Referral Reason memory disturbance Diagnosis 1 Complaints of memory disturbance (R41.3) Referral Organization [facility] Referring Provider First Name CARYN Referring Provider Last Name BHARATI Referring Provider Speciality Internal M edicine Referred Provider Specialty Neurology General Notes Referral faxed to [facility] at F: [phone], Guerline Hernandez 06/14/2023 10:23:21 AM > Referral Priority Routine Reason Hearing loss- [place] Diagnosis 1 Unspecified hearing loss, bilateral (H91.93) Referral Organization [facility] Referring Provider First Name RUBIN Referring Provider Last Name DEMARCUSLogan Referring Provider Speciality Internal M edicine Referred Provider Specialty Audiologists General Notes Referral was faxed t o [facility] Hearing Depart @ F: [phone] Crystal 06/14/2023 10:22:03 AM > Referral Priority Routine Medications Medication SIG (Take, Route, Frequency, Duration) Notes Start Date End Date Status [facility] Glucose Meter Test Strips - as directed 3 times a day for 90 days e11.9 Active Basaglar KwikPen 100 UNIT/ML 50 units Subcutaneous once a day for 30 days Active BD Pen Needle Short U/F 31G [...] In Vitro for 90 days 10/27/2023 Active Fluocinolone Acetonide 0.025 % APPLY AM AND PM TO VAGINAL/ANAL AREA TWICE WEEKLY (MONDAY & MONDAY) FOR 2 WEEKS. THEN STARTING WEEK 3 USE AM & PM MONDAY, MONDAY, MONDAY UNTIL APPOINTMENT for 21 Active Fluocinolone Acetonide 0.025 % 1 application Externally Twice a day for 30 days 03/15/2024 Active Vitamin B6 100 MG 1 tablet Orally Once a day Active traMADol HCl 25 MG as directed Orally once a day for 5 days 04/03/2024 Active Vitamin D3 50 MCG (1999 UT) 1 tablet Orally Once a day Active Diclofenac Sodium 75 MG 1 tablet Orally Twice a day for 30 days Active Ondansetron HCl 4 MG 1 tablet Orally twice a day for 15 days 05/22/2024 Active Latuda 20 MG 1 tablet in the evening with food Orally Once a day Not-Taking Lasix 20 MG 1 tablet Orally Once a day Active traMADol HCl 50 MG 1/2 tablet Orally Once a day for 5 days 04/03/2024 Active Omeprazole 40 MG 1 capsule 30 minutes before morning meal Orally Once a day Active Fish Oil 1000 MG 1 capsule Orally Once a day Not-Taking Magnesium 400 MG 1 capsule Orally once a day for 30 days Active Acetaminophen ER 650 MG 2 tablets as needed Orally every 8 hrs Active Sucralfate 1 GM 1 tablet on an empty stomach Orally Twice a day for 30 days 02/10/2023 Not-Taking Xyzal Allergy 24HR 5 MG 1 tablet in the evening Orally Once a day Active NexIUM 40 MG 1 capsule Orally Once a day for 30 days 02/10/2023 Not-Taking Aspirin Adult Low Dose 81 MG 1 tablet Orally Once a day Active ZyrTEC Allergy 10 MG 1 tablet Orally Onc e a day Not-Taking Colace 100 MG 1 capsule as needed Orally Once a day Active Centrum Silver - as directed Orally Not-Taking hydrOXYzine HCl 25 MG 1 tablet as needed Orally Once a day for 30 days Active LORazepam 0.5 MG 1 tablet Orally daily prn & [address] Gennaro Chow Active Lidoderm 5 % 1 patch remove after 12 hours Externally Once a day 06/13/2023 Active Cymbalta 30 MG 1 capsule Orally 2 times a day 03/28/2023 Not-Taking Simvastatin 40 MG 1 tablet in the evening Orally Once a day for 90 days Active Immunizations Vaccine Route Administration Date Status Comme nts COVID Moderna Unknown 05/29/2020 Administered COVID Moderna Unknown 06/26/2020 Administered COVID Moderna Unknown 02/28/2021 Administered Flu Unknown 01/16/2023 Administered Shingrix Unknown 06/11/2021 Administered Shingrix Unknown 09/13/2021 Administered Problems Problem Type SNOMED Code ICD Code Onset Dates Problem Status W/U Status Risk Notes Problem Hypothyroidism (13721138) Hypothyroidism, unspecified (E03.9) Active confirmed Problem Diabetic neuropathy (044670966) Diabetes mellitus due to underlying condition with diabetic neuropathy, unspecified (E08.40) Active confirmed Problem Secondary diabetes mellitus (0376229) Diabetes mellitus due to underlying condition with hyperglycemia (E08.65) Active confirmed Problem Mixed hyperlipidemia (709920756) Mixed hyperlipidemia (E78.2) Active confirmed Problem Schizoaffective disorder, depressive type (99010698) Schizoaffective disorder, depressive type (F25.1) Active confirmed Problem Moderate recurrent major depression (29337945) Major depressive disorder, recurrent, moderate (F33.1) Active confirmed Problem Generalized anxiety disorder (69334858) Generalized anxiety disorder (F41.1) Active confirmed Problem Hearing loss (61468251) Unspecified hearing loss, bilateral (H91.93) Active confirmed Problem Gastro-esophageal reflux disease without esophagitis (566209581) Gastro-esophageal reflux disease without esophagitis (K21.9) Active confirmed Problem Osteoarthritis (866863526) Polyosteoarthritis , unspecified (M15.9) Active confirmed Problem Chronic kidney disease (175409447) Chronic kidney disease, unspecified (N18.9) Active confirmed Problem Long-term current use of insulin (063279121) 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 (Z79.4) Active confirmed Problem Obsessive-compulsi ve disorder (314847191) Obsessive-compulsi ve disorder, unspecified (F42.9) Active confirmed Problem Amnesia (14995177) Complaints of memory disturbance (R41.3) Active confirmed Vital Signs Heart Rate 67 /min 05/17/2024 Temperature 98.4 degrees Fahrenheit 05/17/2024 Blood pressure diastolic 72 mm Hg 05/17/2024 Oximetry 99 % 05/17/2024 Height 5'1'' in 05/17/2024 Blood pressure systolic 120 mm Hg 05/17/2024 Weight 164.0 lbs 05/17/2024 BMI 30.98 kg/m2 05/17/2024 Encounters Encounter Location Date Provider Diagnosis [address] [address] 06/13/2023 CARYN CALABRESE Diabetes mellitus du e to underlying condition with diabetic neuropathy, unspecified E08.40 ; Mixed hyperlipidemia E78.2 ; Hypothyroidism, unspecified E03.9 ; Generalized anxiety disorder F41.1 ; Complaints of memory disturbance R41.3 ; Polyosteoarthritis, unspecified M15.9 and Chronic kidney disease, unspecified N18.[address] [address] 12/13/2023 CARYN CALABRESE Encounter for genera l adult medical examination without abnormal findings Z00.00 ; Diabetes mellitus due to underlying condition with diabetic neuropathy, unspecified E08.40 ; Mixed hyperlipidemia E78.2 ; Hypothyroidism, unspecified E03.9 ; Generalized anxiety disorder F41.1 and Chronic kidney disease, unspecified N18.9 [facility] [address] [facility] [address] [place] [address] 02/08/2024 Ghadeer Clintloum Viral conjunctivitis , unspecified B30.9 [facility] [address] [place] [address] 05/17/2024 [facility] discharge follow-up Z09 ; Schizoaffective disorder, depressive type F25.1 ; Generalized anxiety disorder F41.1 and Diabetes mellitus due to underlying condition with hyperglycemia E08.65 [facility] [address] [place] [address] 06/13/2023 [facility] [address] [place] [address] 08/25/2023 [facility] [address] [place] [address] 08/30/2023 [facility] [address] [place] [address] 08/31/2023 [facility] [address] [place] [address] 08/31/2023 [facility] [address] [place] [address] 10/09/2023 [facility] [address] [place] [address] 10/23/2023 [facility] [address] [place] [address] 10/24/2023 [facility] [address] [place] [address] 10/25/2023 [facility] [address] [place] [address] 10/27/2023 [facility] [address] [place] [address] 12/06/[address] [place] [address] 12/15/[address] [place] [address] 01/02/[address] [place] [address] 03/14/2024 Ghadeer Mazloum Pruritus vulvae L29. [address] [place] [address] 04/03/2024 Ghadeer Mazloum Pain in unspecified shoulder M25.[address] [place] [address] 04/03/2024 Ghadeer Mazloum Pain in unspecified shoulder M25.[address] [place] [address] 04/05/2024 RUBIN GUL Pain in unspecified shoulder M25.[address] [place] [address] 04/05/[address] [place] [address] 05/22/2024 RUBIN GUL Assessments Encounter Date Diagnosis (ICD Code) Assessment Notes Treatment Notes Treatment Clinical Notes Section Notes 12/13/2023 Encounter for general adult medical examination without abnormal findings (ICD-10 - Z00.00) Lizzette is 73 years old lady with DM type II, hyperlipidemia, hypothyroidism, MDD/OCD/CATIE, osteoarthritis and CKD is here for her annual physical. Plan is as follows DM type II with neuropathy. She has been noncompliant with low calorie diet. Her hemoglobin A1c is 7.5 and last time was 6.6. Dietary restrictions at this point and advised to check a hemoglobin A1c in 6 months. Continue current regimen. She is seen wedger and podiatry in the past 1 year. Renal function is stable. Hyperlipidemia. Continue on simvastatin 40 mg daily and recheck panel before next appointment Hypothyroidism. Last TSH/T4 was within normal limits and continue on levothyroxine 125 mcg daily Generalized anxiety disorder/obsessive -compulsive disorder/major depression. She is stable at this point and she follows up with psychiatrist and psychologist. Obesity. Advised low calorie foods and increase physical activity as much as possible and goal is to lose 6 pounds a month. Hearing loss. She uses hearing aids and hearing is stable CKD stage IIIa. Avoid NSAIDs and she does not appear to be in volume overload. She is on Lasix 20 mg. She is full code and her daughter Olga is her healthcare proxy She is up-to-date on health specific screening 05/17/2024 Schizoaffective disorder, depressive type (ICD-10 - F25.1) 74 years old lady With insulin-dependent DM type II, hypertension, hyperlipidemia, hypothyroidism generalized anxiety disorder, acid reflux schizoaffective disorder who was seen in the [facility] emergency room on a 05/15 24 for extreme fatigue weakness and then went to [facility] on 05/16/24 for the same complaints is here for posthospital discharge follow-up. Post discharge Hospital follow-up 7 days fatigue weakness poor appetite due to dehydration possible withdrawal from abruptly stopping Cymbalta, in increased dose of Latuda and then discontinuing Latuda completely All lab work has been unremarkable no evidence of any infection notes from [facility] and [facility] has been reviewed. Discussed at length with [...] was present in the room today 05/17/2024 Hospital discharge follow-up (ICD-10 - Z09) 74 years old lady With insulin-dependent DM type II, hypertension, hyperlipidemia, hypothyroidism generalized anxiety disorder, acid reflux schizoaffective disorder who was seen in the [facility] emergency room on a 05/15 24 for extreme fatigue weakness and then went to [facility] on 05/16/24 for the same complaints is here for posthospital discharge follow-up. Post discharge Hospital follow-up 7 days fatigue weakness poor appetite due to dehydration possible withdrawal from abruptly stopping Cymbalta, in increased dose of Latuda and then discontinuing Latuda completely All lab work has been unremarkable no evidence of any infection notes from [facility] and [facility] has been reviewed. Discussed at length with [...] family was present in the room today 04/03/2024 Pain in unspecified shoulder (ICD-10 - M25.519) 04/03/2024 Pain in unspecified shoulder (ICD-10 - M25.519) 03/14/2024 Pruritus vulvae (ICD-10 - L29.2) 02/08/2024 Viral conjunctivitis, unspecified (ICD-10 - B30.9) Ms. Steiner is 73 years old lady With insulin-dependent DM type II, hypertension, hyperlipidemia, hypothyroidism generalized anxiety disorder, acid reflux Is here for pink eye. plan as follows: Viral Conjunctivitis: - Started today with watery tears. No purulent drainage is noted. Advised patient on taking Ketotifen [id number] eyedrop. She can also start taking partial tears for dry eyes. She can also use warm compresses. I have rendered the services for this patient under direct supervision of Dr. Calabrese, who did not see the patient but was available upon request 06/13/2023 Diabetes mellitus due to underlying condition with diabetic neuropathy, unspecified (ICD-10 - E08.40) Ms. Steiner is 73 years old lady With insulin-dependent DM type II, hypertension, hyperlipidemia, hypothyroidism generalized anxiety disorder, acid reflux Is here for follow up. Plan is as follows: Type II diabetes mellitus/residential use of insulin. Last A1c 6.1. Fastings sugars 115. She is on right medications. Foot care discussed. check A1c Hypertension. Blood pressure well controlled on current regimen. Hyperlipidemia. Suggested dietary modifications. Continue Simvastatin 40 MG once a day, Fish Oil 1000 MG once a day. Hypothyroidism. Continue Levothyroxine 125 MCG and advised to take it first thing in the morning on an empty stomach. GERD. Stable on Nexium 40 MG Once a day, Sucralfate 1 GM BID on an empty stomach CATIE/MDD. Mood is stable on current regimen. She is on Lorazepam 0.5 MG, hydroxyzine 25 MG. Side effects discussed. Memory disturbance. Referred to Neurology. Polyosteoarthritis . She goes for acupuncture on her left shoulder. We inceased cymbalta 30 mg bid and gave her Lidoderm patch Hearing loss. Refer to [facility] at [facility] Chronic kidney disease stage 2. She does not appear to be in volume overload. Advised appropriate hydration. Avoid NSAIDs. Class 1 obesity. Advised dietary restrictions and regimental exercise. Goal is to lose 5-6 lbs a month. Blood work reviewed with patient and questions answered. Screening blood work before next appointment. General health concerns discussed with patient. Scribe services used to formulate this note under HIPAA compliance and under [place] law mandated for scribe services. Patient aware of service. Verbal consent and written consent taken from the patient. Patient understands and verbalizes understanding of the scribes services and all questions answered regarding scribes services. Patient agrees to use of scribes services. 06/13/2023 Mixed hyperlipidemia (ICD-10 - E78.2) Ms. Steiner is 73 years old lady With insulin-dependent DM type II, hypertension, hyperlipidemia, hypothyroidism generalized anxiety disorder, acid reflux Is here for follow up. 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 Last A1c 6.1. Fastings sugars 115. She is on right medications. Foot care discussed. check A1c Hypertension. Blood pressure well controlled on current regimen. Hyperlipidemia. Suggested dietary modifications. Continue Simvastatin 40 MG once a day, Fish Oil 1000 MG once a day. Hypothyroidism. Continue Levothyroxine 125 MCG and advised to take it first thing in the morning on an empty stomach. GERD. Stable on Nexium 40 MG Once a day, Sucralfate 1 GM BID on an empty stomach CATIE/MDD. Mood is stable on current regimen. She is on Lorazepam 0.5 MG, hydroxyzine 25 MG. Side effects discussed. Memory disturbance. Referred to Neurology. Polyosteoarthritis . She goes for acupuncture on her left shoulder. We inceased cymbalta 30 mg bid and gave her Lidoderm patch Hearing loss. Refer to [facility] at [facility] Chronic kidney disease stage 2. She does not appear to be in volume overload. Advised appropriate hydration. Avoid NSAIDs. Class 1 obesity. Advised dietary restrictions and regimental exercise. Goal is to lose 5-6 lbs a month. Blood work reviewed with patient and questions answered. Screening blood work before next appointment. General health concerns discussed with patient. Scribe services used to formulate this note under HIPAA compliance and under [place] law mandated for scribe services. Patient aware of service. Verbal consent and written consent taken from the patient. Patient understands and verbalizes understanding of the scribes services and all questions answered regarding scribes services. Patient agrees to use of scribes services. 04/05/2024 Pain in unspecified shoulder (ICD-10 - M25.519) 06/13/2023 Hypothyroidism, unspecified (ICD-10 - E03.9) Ms. Steiner is 73 years old lady With insulin-dependent DM type II, hypertension, hyperlipidemia, hypothyroidism generalized anxiety disorder, acid reflux Is here for follow up. Plan is as follows: Type II diabetes mellitus/residential use of insulin. Last A1c 6.1. Fastings sugars 115. She is on right medications. Foot care discussed. check A1c Hypertension. Blood pressure well controlled on current regimen. Hyperlipidemia. Suggested dietary modifications. Continue Simvastatin 40 MG once a day, Fish Oil 1000 MG once a day. Hypothyroidism. Continue Levothyroxine 125 MCG and advised to take it first thing in the morning on an empty stomach. GERD. Stable on Nexium 40 MG Once a day, Sucralfate 1 GM BID on an empty stomach CATIE/MDD. Mood is stable on current regimen. She is on Lorazepam 0.5 MG, hydroxyzine 25 MG. Side effects discussed. Memory disturbance. Referred to Neurology. Polyosteoarthritis . She goes for acupuncture on her left shoulder. We inceased cymbalta 30 mg bid and gave her Lidoderm patch Hearing loss. Refer to [facility] at [facility] Chronic kidney disease stage 2. She does not appear to be in volume overload. Advised appropriate hydration. Avoid NSAIDs. Class 1 obesity. Advised dietary restrictions and regimental exercise. Goal is to lose 5-6 lbs a month. Blood work reviewed with patient and questions answered. Screening blood work before next appointment. General health concerns discussed with patient. Scribe services used to formulate this note under HIPAA compliance and under [place] law mandated for scribe services. Patient aware of service. Verbal consent and written consent taken from the patient. Patient understands and verbalizes understanding of the scribes services and all questions answered regarding scribes services. Patient agrees to use of scribes services. 05/17/2024 Generalized anxiety disorder (ICD-10 - F41.1) 74 years old lady With insulin-dependent DM type II, hypertension, hyperlipidemia, hypothyroidism generalized anxiety disorder, acid reflux schizoaffective disorder who was seen in the [facility] emergency room on a 05/15 24 for extreme fatigue weakness and then went to [facility] on 05/16/24 for the same complaints is here for posthospital discharge follow-up. Post discharge Hospital follow-up 7 days fatigue weakness poor appetite due to dehydration possible withdrawal from abruptly stopping Cymbalta, in increased dose of Latuda and then discontinuing Latuda completely All lab work has been unremarkable no evidence of any infection notes from [facility] has been reviewed. Discussed at length [...] family was present in the room today 12/13/2023 Diabetes mellitus due to underlying condition with diabetic neuropathy, unspecified (ICD-10 - E08.40) Lizzette is 73 years old lady with DM type II, hyperlipidemia, hypothyroidism, MDD/OCD/CATIE, osteoarthritis and CKD is here for her annual physical. Plan is as follows DM type II with neuropathy. She has been noncompliant with low calorie diet. Her hemoglobin A1c is 7.5 and last time was 6.6. Dietary restrictions at this point and advised to check a hemoglobin A1c in 6 months. Continue current regimen. She is seen wedger and podiatry in the past 1 year. Renal function is stable. Hyperlipidemia. Continue on simvastatin 40 mg daily and recheck panel before next appointment Hypothyroidism. Last TSH/T4 was within normal limits and continue on levothyroxine 125 mcg daily Generalized anxiety disorder/obsessive -compulsive disorder/major depression. She is stable at this point and she follows up with psychiatrist and psychologist. Obesity. Advised low calorie foods and increase physical activity as much as possible and goal is to lose 6 pounds a month. Hearing loss. She uses hearing aids and hearing is stable CKD stage IIIa. Avoid NSAIDs and she does not appear to be in volume overload. She is on Lasix 20 mg. She is full code and her daughter Olga is her healthcare proxy She is up-to-date on health specific screening 12/13/2023 Mixed hyperlipidemia (ICD-10 - E78.2) Lizzette is 73 years old lady with DM type II, hyperlipidemia, hypothyroidism, MDD/OCD/CAITE, osteoarthritis and CKD is here for her annual physical. Plan is as follows DM type II with neuropathy. She has been noncompliant with low calorie diet. Her hemoglobin A1c is 7.5 and last time was 6.6. Dietary restrictions at this point and advised to check a hemoglobin A1c in 6 months. Continue current regimen. She is seen wedger and podiatry in the past 1 year. Renal function is stable. Hyperlipidemia. Continue on simvastatin 40 mg daily and recheck panel before next appointment Hypothyroidism. Last TSH/T4 was within normal limits and continue on levothyroxine 125 mcg daily Generalized anxiety disorder/obsessive -compulsive disorder/major depression. She is stable at this point and she follows up with psychiatrist and psychologist. Obesity. Advised low calorie foods and increase physical activity as much as possible and goal is to lose 6 pounds a month. Hearing loss. She uses hearing aids and hearing is stable CKD stage IIIa. Avoid NSAIDs and she does not appear to be in volume overload. She is on Lasix 20 mg. She is full code and her daughter Olga is her healthcare proxy She is up-to-date on health specific screening 05/17/2024 Diabetes mellitus due to underlying condition with hyperglycemia (ICD-10 - E08.65) 74 years old lady With insulin-dependent DM type II, hypertension, hyperlipidemia, hypothyroidism generalized anxiety disorder, acid reflux schizoaffective disorder who was seen in the [facility] emergency room on a 05/15 24 for extreme fatigue weakness and then went to [facility] on 05/16/24 for the same complaints is here for posthospital discharge follow-up. Post discharge Hospital follow-up 7 days fatigue weakness poor appetite due to dehydration possible withdrawal from abruptly stopping Cymbalta, in increased dose of Latuda and then discontinuing Latuda completely All lab work has been unremarkable no evidence of any infection notes from [facility] has been reviewed. Discussed at length [...] family was present in the room today 06/13/2023 Generalized anxiety disorder (ICD-10 - F41.1) Ms. Steiner is 73 years old lady With insulin-dependent DM type II, hypertension, hyperlipidemia, hypothyroidism generalized anxiety disorder, acid reflux Is here for follow up. 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 Last A1c 6.1. Fastings sugars 115. She is on right medications. Foot care discussed. check A1c Hypertension. Blood pressure well controlled on current regimen. Hyperlipidemia. Suggested dietary modifications. Continue Simvastatin 40 MG once a day, Fish Oil 1000 MG once a day. Hypothyroidism. Continue Levothyroxine 125 MCG and advised to take it first thing in the morning on an empty stomach. GERD. Stable on Nexium 40 MG Once a day, Sucralfate 1 GM BID on an empty stomach CATIE/MDD. Mood is stable on current regimen. She is on Lorazepam 0.5 MG, hydroxyzine 25 MG. Side effects discussed. Memory disturbance. Referred to Neurology. Polyosteoarthritis . She goes for acupuncture on her left shoulder. We inceased cymbalta 30 mg bid and gave her Lidoderm patch Hearing loss. Refer to [facility] at [facility] Chronic kidney disease stage 2. She does not appear to be in volume overload. Advised appropriate hydration. Avoid NSAIDs. Class 1 obesity. Advised dietary restrictions and regimental exercise. Goal is to lose 5-6 lbs a month. Blood work reviewed with patient and questions answered. Screening blood work before next appointment. General health concerns discussed with patient. Scribe services used to formulate this note under HIPAA compliance and under [place] law mandated for scribe services. Patient aware of service. Verbal consent and written consent taken from the patient. Patient understands and verbalizes understanding of the scribes services and all questions answered regarding scribes services. Patient agrees to use of scribes services. 12/13/2023 Hypothyroidism, unspecified (ICD-10 - E03.9) Lizzette is 73 years old lady with DM type II, hyperlipidemia, hypothyroidism, MDD/OCD/CATIE, osteoarthritis and CKD is here for her annual physical. Plan is as follows DM type II with neuropathy. She has been noncompliant with low calorie diet. Her hemoglobin A1c is 7.5 and last time was 6.6. Dietary restrictions at this point and advised to check a hemoglobin A1c in 6 months. Continue current regimen. She is seen wedger and podiatry in the past 1 year. Renal function is stable. Hyperlipidemia. Continue on simvastatin 40 mg daily and recheck panel before next appointment Hypothyroidism. Last TSH/T4 was within normal limits and continue on levothyroxine 125 mcg daily Generalized anxiety disorder/obsessive -compulsive disorder/major depression. She is stable at this point and she follows up with psychiatrist and psychologist. Obesity. Advised low calorie foods and increase physical activity as much as possible and goal is to lose 6 pounds a month. Hearing loss. She uses hearing aids and hearing is stable CKD stage IIIa. Avoid NSAIDs and she does not appear to be in volume overload. She is on Lasix 20 mg. She is full code and her daughter Olga is her healthcare proxy She is up-to-date on health specific screening 06/13/2023 Complaints of memory disturbance (ICD-10 - R41.3) Ms. Steiner is 73 years old lady With insulin-dependent DM type II, hypertension, hyperlipidemia, hypothyroidism generalized anxiety disorder, acid reflux Is here for follow up. Plan is as follows: Type II diabetes mellitus/residential use of insulin. Last A1c 6.1. Fastings sugars 115. She is on right medications. Foot care discussed. check A1c Hypertension. Blood pressure well controlled on current regimen. Hyperlipidemia. Suggested dietary modifications. Continue Simvastatin 40 MG once a day, Fish Oil 1000 MG once a day. Hypothyroidism. Continue Levothyroxine 125 MCG and advised to take it first thing in the morning on an empty stomach. GERD. Stable on Nexium 40 MG Once a day, Sucralfate 1 GM BID on an empty stomach CATIE/MDD. Mood is stable on current regimen. She is on Lorazepam 0.5 MG, hydroxyzine 25 MG. Side effects discussed. Memory disturbance. Referred to Neurology. Polyosteoarthritis . She goes for acupuncture on her left shoulder. We inceased cymbalta 30 mg bid and gave her Lidoderm patch Hearing loss. Refer to [facility] at [facility] Chronic kidney disease stage 2. She does not appear to be in volume overload. Advised appropriate hydration. Avoid NSAIDs. Class 1 obesity. Advised dietary restrictions and regimental exercise. Goal is to lose 5-6 lbs a month. Blood work reviewed with patient and questions answered. Screening blood work before next appointment. General health concerns discussed with patient. Scribe services used to formulate this note under HIPAA compliance and under [place] law mandated for scribe services. Patient aware of service. Verbal consent and written consent taken from the patient. Patient understands and verbalizes understanding of the scribes services and all questions answered regarding scribes services. Patient agrees to use of scribes services. 06/13/2023 Polyosteoarthritis , unspecified (ICD-10 - M15.9) Ms. Steiner is 73 years old lady With insulin-dependent DM type II, hypertension, hyperlipidemia, hypothyroidism generalized anxiety disorder, acid reflux Is here for follow up. 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 Last A1c 6.1. Fastings sugars 115. She is on right medications. Foot care discussed. check A1c Hypertension. Blood pressure well controlled on current regimen. Hyperlipidemia. Suggested dietary modifications. Continue Simvastatin 40 MG once a day, Fish Oil 1000 MG once a day. Hypothyroidism. Continue Levothyroxine 125 MCG and advised to take it first thing in the morning on an empty stomach. GERD. Stable on Nexium 40 MG Once a day, Sucralfate 1 GM BID on an empty stomach CATIE/MDD. Mood is stable on current regimen. She is on Lorazepam 0.5 MG, hydroxyzine 25 MG. Side effects discussed. Memory disturbance. Referred to Neurology. Polyosteoarthritis . She goes for acupuncture on her left shoulder. We inceased cymbalta 30 mg bid and gave her Lidoderm patch Hearing loss. Refer to [facility] at [facility] Chronic kidney disease stage 2. She does not appear to be in volume overload. Advised appropriate hydration. Avoid NSAIDs. Class 1 obesity. Advised dietary restrictions and regimental exercise. Goal is to lose 5-6 lbs a month. Blood work reviewed with patient and questions answered. Screening blood work before next appointment. General health concerns discussed with patient. Scribe services used to formulate this note under HIPAA compliance and under [place] law mandated for scribe services. Patient aware of service. Verbal consent and written consent taken from the patient. Patient understands and verbalizes understanding of the scribes services and all questions answered regarding scribes services. Patient agrees to use of scribes services. 12/13/2023 Generalized anxiety disorder (ICD-10 - F41.1) Lizzette is 73 years old lady with DM type II, hyperlipidemia, hypothyroidism, MDD/OCD/CATIE, osteoarthritis and CKD is here for her annual physical. Plan is as follows DM type II with neuropathy. She has been noncompliant with low calorie diet. Her hemoglobin A1c is 7.5 and last time was 6.6. Dietary restrictions at this point and advised to check a hemoglobin A1c in 6 months. Continue current regimen. She is seen wedger and podiatry in the past 1 year. Renal function is stable. Hyperlipidemia. Continue on simvastatin 40 mg daily and recheck panel before next appointment Hypothyroidism. Last TSH/T4 was within normal limits and continue on levothyroxine 125 mcg daily Generalized anxiety disorder/obsessive -compulsive disorder/major depression. She is stable at this point and she follows up with psychiatrist and psychologist. Obesity. Advised low calorie foods and increase physical activity as much as possible and goal is to lose 6 pounds a month. Hearing loss. She uses hearing aids and hearing is stable CKD stage IIIa. Avoid NSAIDs and she does not appear to be in volume overload. She is on Lasix 20 mg. She is full code and her daughter Olga is her healthcare proxy She is up-to-date on health specific screening 12/13/2023 Chronic kidney disease, unspecified (ICD-10 - N18.9) Lizzette is 73 years old lady with DM type II, hyperlipidemia, hypothyroidism, MDD/OCD/CATIE, osteoarthritis and CKD is here for her annual physical. Plan is as follows DM type II with neuropathy. She has been noncompliant with low calorie diet. Her hemoglobin A1c is 7.5 and last time was 6.6. Dietary restrictions at this point and advised to check a hemoglobin A1c in 6 months. Continue current regimen. She is seen wedger and podiatry in the past 1 year. Renal function is stable. Hyperlipidemia. Continue on simvastatin 40 mg daily and recheck panel before next appointment Hypothyroidism. Last TSH/T4 was within normal limits and continue on levothyroxine 125 mcg daily Generalized anxiety disorder/obsessive -compulsive disorder/major depression. She is stable at this point and she follows up with psychiatrist and psychologist. Obesity. Advised low calorie foods and increase physical activity as much as possible and goal is to lose 6 pounds a month. Hearing loss. She uses hearing aids and hearing is stable CKD stage IIIa. Avoid NSAIDs and she does not appear to be in volume overload. She is on Lasix 20 mg. She is full code and her daughter Olag is her healthcare proxy She is up-to-date on health specific screening 06/13/2023 Chronic kidney disease, unspecified (ICD-10 - N18.9) Ms. Steiner is 73 years old lady With insulin-dependent DM type II, hypertension, hyperlipidemia, hypothyroidism generalized anxiety disorder, acid reflux Is here for follow up. Plan is as follows: Type II diabetes mellitus/residential use of insulin. Last A1c 6.1. Fastings sugars 115. She is on right medications. Foot care discussed. check A1c Hypertension. Blood pressure well controlled on current regimen. Hyperlipidemia. Suggested dietary modifications. Continue Simvastatin 40 MG once a day, Fish Oil 1000 MG once a day. Hypothyroidism. Continue Levothyroxine 125 MCG and advised to take it first thing in the morning on an empty stomach. GERD. Stable on Nexium 40 MG Once a day, Sucralfate 1 GM BID on an empty stomach CATIE/MDD. Mood is stable on current regimen. She is on Lorazepam 0.5 MG, hydroxyzine 25 MG. Side effects discussed. Memory disturbance. Referred to Neurology. Polyosteoarthritis . She goes for acupuncture on her left shoulder. We inceased cymbalta 30 mg bid and gave her Lidoderm patch Hearing loss. Refer to [facility] at [facility] Chronic kidney disease stage 2. She does not appear to be in volume overload. Advised appropriate hydration. Avoid NSAIDs. Class 1 obesity. Advised dietary restrictions and regimental exercise. Goal is to lose 5-6 lbs a month. Blood work reviewed with patient and questions answered. Screening blood work before next appointment. General health concerns discussed with patient. Scribe services used to formulate this note under HIPAA compliance and under [place] law mandated for scribe services. Patient aware of service. Verbal consent and written consent taken from the patient. Patient understands and verbalizes understanding of the scribes services and all questions answered regarding scribes services. Patient agrees to use of scribes services. Plan Of Treatment Future Test Test Name Order Date Hemoglobin [id number] 12/13/2023 Albumin/Creatinine Ratio,[id number] Lipid [id number] 12/13/2023 Comp. Metabolic Panel [id number] 2023 TSH+Free T4 12/13/2023 Next Appt Details Provider Name:Ángel Box, 0 06/11/2024 02:15:00 PM, [address] [place] [address], [phone], Insurance Providers Payer Name Payer Address Payer Phone Subscriber Number Group Number Insured Name Patient Relationship to Insured Coverage Start Date Coverage End Date Medicare [address] [place] [phone] [id number] Lizzette Steiner Self - patient is the insured 9 Lust have it! Insurance ([facility] [address] [place] [address] [id number] Lizzette Steiner Self - patient is the insured Medical (General) History Medical History History ICD Code CATIE/MDD see Dr Le Psy OCD Hyperlipidemia residential use 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
[2024-05-23 05:39] VITALS: BP 146/77; BP 157/73; PULSE 60; PULSE 74; RESP 16; TEMP 36.5; O2SAT 98; BMI 29.3
[2024-05-23 06:43] VITALS: BP 175/75; PULSE 70; RESP 18; TEMP 36.7; O2SAT 96
[2024-05-23 06:47] LABS: Hematocrit 42.3 % (37.0-47.0); Hemoglobin 14.1 g/dl (12.0-16.0); Mean Corpuscular HGB Conc 33.3 g/dl (31.0-35.0); Mean Corpuscular Hemoglobin 31.6 pg (27.0-33.0); Mean Corpuscular Volume 94.8 fL (80.0-98.0); Mean Platelet Volume 8.9 fL (9.4-12.3); NRBC Pct Auto 0.3 /100WBC (0.0-0.2); Platelet Count 423 X10*3/uL (160-400); Red Blood Count 4.46 X10*6/uL (4.20-5.50); Red Cell Distribution Width 12.2 % (11.0-16.0); White Blood Count 15.2 X10*3/uL (4.8-10.8)
[2024-05-23] MEDS: 0.9 % Sodium Chloride 1,000 ML 999 ML IV (08:36)
[2024-05-23] MEDS: Prochlorperazine Edisylate 10 MG/2 ML VIAL 5 MG IVPUSH (08:36)
[2024-05-23] MEDS: Famotidine/PF 20 MG/2 ML VIAL IVPUSH (08:36)
[2024-05-23 08:38] LABS: Appearance Urine Clear; Color Urine Yellow; Glucose Urine UA Negative (Negative); Leukocyte Esterase Urine Negative (Negative); Nitrite Urine Negative (Negative); PH 5.5 (5.0-9.0); Specific Gravity - Urine >= 1.030 (1.005-1.025); Urine Blood Negative (Negative); Urine Ketones 40 mg/dL (Negative); Urine Protein Trace mg/dL (Neg-Trace)
--- NOTE | 2024-05-23 09:12 | ED_ITS ---
HPI - Nausea/Vomiting/Diarrhea General Chief complaint: Nausea/Vomiting/Diarrhea Stated complaint: NAUSEA Time Seen by Provider: 05/23/24 07:37 Source: patient, EMS, RN notes reviewed, old records reviewed and other Mode of arrival: EMS History of Present Illness ED Provider: Smita Phillip PA-C HPI Narrative: 74-year-old female with a past medical history of schizoaffective, confusion, HTN, HLD, depression, OCD, fibromyalgia, neuropathy and diabetes presents to the ED via EMS with complaints of nausea, dry heaving, vomiting, and poor PO intake x3 days ago. Admits her psychiatrist has been recently changing her medications (Cymbalta and Latuda). Patient states her Cymbalta was discontinued however continues Latuda (unclear). Denies fever, chills, travel, sick contacts diarrhea, SOB, chest pain, lightheadedness, sick contacts, urinary symptoms. Admits to taking 8mg Zofran yesterday without relief. Related Data Home Medications ?Medication ?Instructions ?Recorded ?Confirmed aspirin 81 mg tablet,delayed 81 mg PO BEDTIME 01/01/21 01/12/24 release (Adult Aspirin Regimen) lorazepam 0.5 mg tablet 0.5 - 1 mg PO BID PRN ANXIETY OR 01/01/21 01/12/24 SLEEP biotin 1 mg capsule 1 mg PO DAILY 05/17/21 01/12/24 omega 7-dqh-ghg-fish oil 1,000 mg 1 cap PO DAILY 05/17/21 01/12/24 (120 mg-180 mg) capsule (Fish Oil) blood sugar diagnostic (OneTouch #10 ea 05/27/21 10/30/23 Ultra Test strips) levocetirizine 5 mg tablet (Xyzal) 5 mg PO DAILY 09/09/21 01/12/24 insulin glargine 100 unit/mL (3 45 unit subcut DAILY 03/01/23 01/12/24 mL) subcutaneous pen (Basaglar KwikPen U-100 Insulin) docusate sodium 100 mg capsule 100 mg PO DAILY PRN 12/28/23 01/12/24 (Colace) duloxetine 60 mg capsule,delayed 60 mg PO DAILY 12/28/23 01/12/24 release lurasidone 20 mg tablet 20 mg PO DAILY 09/26/24 10/11/24 Previous Rx's ?Medication ?Instructions ?Recorded blood sugar diagnostic (OneTouch #100 ea 07/14/22 Ultra Test strips) magnesium oxide 400 mg (241.3 mg 400 mg PO DAILY #30 tabs 07/24/22 magnesium) tablet gabapentin 400 mg capsule 400 mg PO TID 30 days #90 caps 12/30/22 omeprazole 40 mg capsule,delayed 40 mg PO DAILY #90 caps 03/15/23 release simvastatin 40 mg tablet 40 mg PO BEDTIME #90 tabs 04/26/23 levothyroxine 125 mcg tablet 125 mcg PO DAILY@0630 #90 tabs 05/18/23 pyridoxine (vitamin B6) 100 mg 100 mg PO DAILY 90 days #90 tabs 12/28/23 tablet Allergies Allergy/AdvReac Type Severity Reaction Status Date / Time codeine [Codeine] Allergy Unknown NAUSEA AND Verified 05/23/24 05:42 VOMITING, nausea pregabalin Allergy Unknown Confusion Verified 05/23/24 05:42 rosuvastatin [Crestor] Allergy Unknown joint pain Verified 05/23/24 05:42 NSAIDS (Non-Steroidal Allergy Swelling Verified 05/23/24 05:42 Anti-Inflamma oxycodone [From OxyContin] Allergy Itching Verified 05/23/24 05:42 [place] Insulin Allergy Unknown severe Uncoded 05/23/24 05:42 itching tapes, adhesives, tegaderm, Allergy Unknown rash Uncoded 05/23/24 05:42 st wellbutrin Allergy Unknown rash Uncoded 05/23/24 05:42 lexapro AdvReac Severe lethargic Uncoded 05/23/24 05:42 Review of Systems 2 Review of Systems: Yes all other systems are reviewed and are negative Constitutional: Constitutional: Reports as per [facility] Past Medical History Attestation statement: The following information was validated with the patient. Source: old records reviewed Medical History Schizoaffective disorder Confusion Skin rash Vitamin D deficiency HTN (hypertension) HLD (hyperlipidemia) Cellulitis of leg, left Skin excoriation Urinary urgency Encounter to establish care Arthralgia of shoulder region, left Cervical spondylitis with radiculitis Myofascial pain on left side Depression OCD (obsessive compulsive disorder) DJD (degenerative joint disease) SI (sacroiliac) joint dysfunction Fibromyalgia GERD (gastroesophageal reflux disease) Neuropathy Diabetes Surgical History History of surgery Family History Family History Father No problems noted. Mother No problems noted. Social History Social History Household Members: Spouse Household Members Other:: 1 Housing: House Do you presently have visiting nurse or other home services: No Alcohol intake: former Comment: SI 1:1 Patient Tobacco Use Status: Never used Tobacco Tobacco use type: Cigarette Smoked in Last 30 Days: No e-Cigarette/Vaping Use: Never Used Second Hand Smoke Exposure: No Use of substances other than those prescribed or required for medical reasons: No Advance Directives: No Advance Directives Information Provided: Yes Do you have a plan to hurt others: No Plan service: No Current occupational status: retired Cognitive needs: Yes (cane) Hearing needs: Yes (hearing aide) Vision needs: Yes (glasses) Physical Exam 2 Vital Signs: Vital Signs: Last Vital Signs Temp 98.3 F 05/23/24 18:48 Pulse 86 05/23/24 18:48 Resp 17 05/23/24 18:48 BP 136/66 05/23/24 18:48 Pulse Ox 97 05/23/24 18:48 O2 Del Method Room Air 05/23/24 18:48 BMI result Body Mass Index 29.3 Const: General: cooperative, healthy appearing and no acute distress O rientation/consciousness: patient oriented x3 Limitations: no limitations HEENT: Head: Yes normal to inspection and Yes atraumatic Ears: hearing grossly normal bilaterally General nose exam: Normal external nose present Face and sinus: Yes normal facial exam Eyes: General: appearance normal, both eyes and all related structures EOM: EOMs intact bilaterally Neck: Neck: Yes normal visual inspection and Yes no meningeal signs Resp: Effort & Inspection: normal respiratory effort and no respiratory distress Auscultation: clear to auscultation bilaterally Cardio: Rate: regular rate Heart sounds: S1 normal heart sound present and S2 normal heart sound present GI: Inspection: Yes normal to inspection Palpation (GI): Soft to palpation, Tenderness to palpation present (GI) in the epigastrum and in the RUQ; with no rebound tenderness, no guarding and not rigid : General: Yes no CVA tenderness Back/Spine/Pelvis: Back: no CVA tenderness Skin: Rashes: no rashes Wounds: no wounds Neuro: General: patient oriented x3, tone normal and no meningeal signs C ranial nerves: Yes CN's II-XII intact bilaterally Gait exam (Neuro): Normal gait present Extrem: General: Yes normal to inspection Course Course Course Narrative: -0947--leukocytosis of 15.2 > likely reactive nausea/vomiting. Continued low suspicion for severe sepsis -UA with 40 ketones. Viral testing negative -1130--labs otherwise reassuring. Chronically elevated AST US abdomen limited IMPRESSION: 1. Cirrhotic morphology of the liver. No suspicious lesion. 2. Gallbladder sludge, stones, and borderline wall thickening without definite sonographic evidence of acute cholecystitis. Negative sonographic Segura sign. Recommend correlation with HIDA if there is high clinical suspicion. 3. No biliary dilatation. 4. There are are left renal cysts. > will consult GI, Dr. Crespo. 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 ED care transferred to [facility] pending HIDA scan results and re-evaluation. Dispo per results. Reevaluation(s) Reevaluation #1: Patient received in sign-out at change of shift pending HIDA scan which shows findings consistent acute cholecystitis. On re-evaluation the patient has no significant right upper quadrant tenderness. However given the leukocytosis with nausea, vomiting, abdominal pain and imaging findings I will discuss with general surgery. Time: 18:50 Medications Administered Discontinued Medications Generic Name Dose Route Start Last Admin Trade Name Freq PRN Reason Stop Dose Admin Famotidine 20 mg 05/23/24 08:24 05/23/24 08:36 Famotidine/Pf 20 Mg/2 Ml Vial IVPUSH 05/23/24 08:25 20 mg ONCE ONE Administration Sodium Chloride 1,000 mls @ 999 mls/hr 05/23/24 08:30 05/23/24 11:02 Ns IV 05/23/24 09:30 Infused .Q1H1M [facility] Infusion Ondansetron HCl 4 mg 05/23/24 13:00 05/23/24 13:25 Ondansetron Hcl 4 Mg/2 Ml Vial IVPUSH 05/23/24 13:01 4 mg ONCE ONE Administration Prochlorperazine Edisylate 5 mg 05/23/24 08:21 05/23/24 08:36 Prochlorperazine Edisylate 10 Mg/2 Ml Vial IVPUSH 05/23/24 08:22 5 mg ONCE ONE Administration Medical Decision Making Medical Decision Making [facility] Narrative: 74-year-old female with a past medical history of schizoaffective, confusion, HTN, HLD, depression, OCD, fibromyalgia, neuropathy and diabetes presents to the ED via EMS with complaints of nausea, dry heaving, vomiting, and poor PO intake x3 days ago. On exam, vital signs stable, NAD, non-toxic appearing, A&O x3. Epigastric ttp appreciated. Concern for medication discontinuation/changes side effects vs dehydration/metabolic abnormalities vs viral etiology vs gastroenteritis vs pancreatitis/cholecystitis/lithiasis. Less concern for appendicitis, diverticulitis, ACS, ischemic colitis Plan: EKG, labs, UA, viral testing, Abdominal US, antiemetic, IVF, re-evaluate, p.o. trial Differential Diagnosis Differential Diagnoses: The differential diagnosis associated with the presentation includes As above Admission/Observation Consideration of admission/observation: Escalation of care including admission/observation considered Lab Data [facility] Lab Attestation statement: I reviewed the patient's lab results. 05/23/24 06:39 05/23/24 09:23 Labs: Lab Results 05/23/24 05/23/24 05/23/24 Range/Units 06:39 08:25 08:29 WBC 15.2 H (4.8-10.8) X10*3/uL RBC 4.46 (4.20-5.50) X10*6/uL Hgb 14.1 (12.0-16.0) g/dl Hct 42.3 (37.0-47.0) % MCV 94.8 (80.0-98.0) fL MCH 31.6 (27.0-33.0) pg MCHC 33.3 (31.0-35.0) g/dl RDW 12.2 (11.0-16.0) % Plt Count 423 H (160-400) X10*3/uL MPV 8.9 L (9.4-12.3) fL Absolute Nucleated RBC 0.050 H (0.0-0.012) X10*3/uL Nucleated RBC % (auto) 0.3 H (0.0-0.2) /100WBC Sodium (135-145) mmol/L Potassium (3.3-5.1) mmol/L Chloride (96-108) mmol/L Carbon Dioxide (22-29) mmol/L Anion Gap (12-20) BUN (9-16) mg/dL Creatinine (0.5-1.4) mg/dL Estim Creat Clear Calc Estimated GFR Random Glucose (60-115) mg/dL Calcium (8.4-10.2) mg/dL Magnesium (1.6-2.6) mg/dL Total Bilirubin (0.0-1.0) mg/dL Direct Bilirubin (0.0-0.5) mg/dL AST (5-31) U/L ALT (0-31) U/L Alkaline Phosphatase (39-117) U/L Total Protein (6.5-8.0) g/dL Albumin (3.5-5.0) g/dL Lipase (8-78) U/L Urine Color Yellow Urine Appearance Clear Urine pH 5.5 (5.0-9.0) Ur Specific [place] >= 1.030 H (1.005-1.025) Urine Protein Trace (Neg-Trace) mg/dL Urine Glucose (UA) Negative (Negative) mg/dL Urine Ketones 40 (Negative) mg/dL Urine Blood Negative (Negative) Urine Nitrite Negative (Negative) Ur Leukocyte Esterase Negative (Negative) Influenza Type A (PCR) NEGATIVE (Negative) Influenza Type B (PCR) NEGATIVE (Negative) RSV RNA Qual (PCR) NEGATIVE (Negative) SARS-CoV-2 RNA (RT-PCR) NEGATIVE (Negative) 05/23/24 Range/Units 09:23 WBC (4.8-10.8) X10*3/uL RBC (4.20-5.50) X10*6/uL Hgb (12.0-16.0) g/dl Hct (37.0-47.0) % MCV (80.0-98.0) fL MCH (27.0-33.0) pg MCHC (31.0-35.0) g/dl RDW (11.0-16.0) % Plt Count (160-400) X10*3/uL MPV (9.4-12.3) fL Absolute Nucleated RBC (0.0-0.012) X10*3/uL Nucleated RBC % (auto) (0.0-0.2) /100WBC Sodium 140 (135-145) mmol/L Potassium 4.4 (3.3-5.1) mmol/L Chloride 107 (96-108) mmol/L Carbon Dioxide 20 L (22-29) mmol/L Anion Gap 17 (12-20) BUN 20 H (9-16) mg/dL Creatinine 0.70 (0.5-1.4) mg/dL Estim Creat Clear Calc 64.8 Estimated GFR > 60 Random Glucose 179 H (60-115) mg/dL Calcium 8.8 D (8.4-10.2) mg/dL Magnesium 1.6 (1.6-2.6) mg/dL Total Bilirubin 0.5 (0.0-1.0) mg/dL Direct Bilirubin 0.2 (0.0-0.5) mg/dL AST 36 H (5-31) U/L ALT 24 (0-31) U/L Alkaline Phosphatase 75 (39-117) U/L Total Protein 7.2 (6.5-8.0) g/dL Albumin 3.7 (3.5-5.0) g/dL Lipase 14 (8-78) U/L Urine Color Urine Appearance Urine pH (5.0-9.0) Ur Specific [place] (1.005-1.025) Urine Protein (Neg-Trace) mg/dL Urine Glucose (UA) (Negative) mg/dL Urine Ketones (Negative) mg/dL Urine Blood (Negative) Urine Nitrite (Negative) Ur Leukocyte Esterase (Negative) Influenza Type A (PCR) (Negative) Influenza Type B (PCR) (Negative) RSV RNA Qual (PCR) (Negative) SARS-CoV-2 RNA (RT-PCR) (Negative) Independent Interpretation I performed an independent interpretation of an: EKG and Ultrasound Radiology Impression Discussion of test interpretation with radiology: I have reviewed the radiologist's reading. Independent Historian Clinical information obtained from an independent historian. History obtained from or confirmed by: Friend and EMS External Record Review External record reviewed: Inpatient record, Office record, Outpatient record, Prior outpatient labs, Prior outpatient radiology, Primary care record and Outside ED record Tests considered The following testing was considered but not selected: As above Prescription Management I considered prescription management with: Pain Medication and Other Chronic Conditions Patient?s care impacted by: Diabetes, Hypertension and Other Social Determinants Patient?s care significantly limited by Social Determinants of Health including: Other Social Determinant of Health Discharge Plan Discharge Clinical Impression: Gallbladder sludge, Nausea & vomiting, Decreased oral intake Patient Disposition: Still a Patient Prescriptions: No Action (DME) OneTouch Ultra Test Strip See Rx Instructions .Route Qty: 100 2RF Rx Instructions: check BS 2-3x/day gabapentin 400 mg capsule 400 mg PO TID 30 Days Qty: 90 1RF omeprazole 40 mg capsule,delayed release(DR/EC) 40 mg PO DAILY Qty: 90 0RF simvastatin 40 mg tablet 40 mg PO BEDTIME Qty: 90 0RF levothyroxine 125 mcg tablet 125 mcg PO DAILY@0630 Qty: 90 1RF magnesium oxide 400 mg (241.3 mg magnesium) tablet 400 mg PO DAILY Qty: 30 0RF insulin glargine [Basaglar KwikPen U-100 Insulin] 100 unit/mL (3 mL) insulin pen 45 unit subcut DAILY lorazepam 0.5 mg tablet 0.5 - 1 mg PO BID PRN (Reason: ANXIETY OR SLEEP) aspirin [Adult Aspirin Regimen] 81 mg tablet,delayed release (DR/EC) 81 mg PO BEDTIME biotin 1 mg capsule 1 mg PO DAILY omega 4-ajy-jci-fish oil [Fish Oil] 1,000 mg (120 mg-180 mg) capsule 1 cap PO DAILY levocetirizine [Xyzal] 5 mg tablet 5 mg PO DAILY (DME) OneTouch Ultra Test Strip See Rx Instructions Not Applicable TID Qty: 10 Rx Instructions: As directed docusate sodium [Colace] 100 mg capsule 100 mg PO DAILY PRN lurasidone 20 mg tablet 20 mg PO DAILY duloxetine 60 mg capsule,delayed release(DR/EC) 60 mg PO DAILY pyridoxine (vitamin B6) 100 mg tablet 100 mg PO DAILY 90 Days Qty: 90 3RF Print Language: [place] Leonean
[2024-05-23 09:15] LABS: Influenza A PCR NEGATIVE (Negative); Influenza B PCR NEGATIVE (Negative); Resp Syncy Virus RNA Qual PCR NEGATIVE (Negative); SARS COV2 PCR INHOUSE NEGATIVE (Negative)
[2024-05-23 09:58] LABS: Alanine Aminotransferase 24 U/L (0-31); Albumin Level 3.7 g/dL (3.5-5.0); Alkaline Phosphatase 75 U/L (39-117); Anion Gap 17 (12-20); Aspartate Amino Transferase 36 U/L (5-31); Bilirubin Direct 0.2 mg/dL (0.0-0.5); Bilirubin Total 0.5 mg/dL (0.0-1.0); Blood Urea Nitrogen 20 mg/dL (9-16); Calcium 8.8 mg/dL (8.4-10.2); Carbon Dioxide 20 mmol/L (22-29); Chloride 107 mmol/L (96-108); Creatinine Clr Calc Pharmacy 64.8; Estimated Glomerular Filt Rate > 60; Glucose Random 179 mg/dL (60-115); Lipase 14 U/L (8-78); Magnesium 1.6 mg/dL (1.6-2.6); Potassium 4.4 mmol/L (3.3-5.1); Sodium 140 mmol/L (135-145); Total Protein 7.2 g/dL (6.5-8.0)
[2024-05-23 11:39] VITALS: BP 152/76; PULSE 73; RESP 17; TEMP 36.7; O2SAT 96
[2024-05-23] MEDS: ondansetron HCL 4 MG/2 ML VIAL IVPUSH (13:25)
--- NOTE | 2024-05-23 13:26 | PC.NURSE ---
PT IN NAD AT THIS TIME. ENDORSES RECURRENT NAUSEA, MEDICATED PER EMR. WILL UNDERGO HIDA SCAN AT APPROXIMATELY 1430H. PT AWARE OF PLAN OF CARE. HAS BEEN NPO SINCE YESTERDAY. DENIES PAIN, THOUGH RUQ TENDER ON PALP, SOFT, DISTENDED. PT AMBULATES WITH A CANE AT HOME, BUT HAS BEEN GETTING TO RESTROOM INDEPENDENTLY AND STEADILY.
--- NOTE | 2024-05-23 17:57 | PC.NURSE ---
pt taken to [facility]
[2024-05-23 18:48] VITALS: BP 136/66; PULSE 86; RESP 17; TEMP 36.8; O2SAT 97
[2024-05-23] MEDS: Piperacillin Sodium/Tazobactam 3.375 GM in 0.9 % Sodium Chloride 50 ML IV (19:59)
--- NOTE | 2024-05-23 20:36 | P.HPHOSP_ITS ---
History of Present Illness Date of Service: 05/23/24 Chief Complaint: Nausea and vomiting 74-year-old female with a past medical history of HTN, HLD, hypothyroidism, GERD, insulin-dependent type 2 diabetes, fibromyalgia, depression, and OCD presenting to the ED with three days of nausea, vomiting, and abdominal discomfort. The patient recently had her Latuda dose increased and has been experiencing nonspecific symptoms, including weakness and malaise. She was seen in the ED on 05/15 and discharged home, as well as evaluated at [facility] ED for similar symptoms a few days ago, but was again discharged. Over the past three days, she developed worsening nausea and vomiting, prompting her return to the ED. Additionally, she reports upper abdominal/RUQ discomfort, but no fever Workup: * Abdominal ultrasound: Gallbladder sludge, stones, and borderline wall thickening, but no definitive sonographic evidence of acute cholecystitis. * HIDA scan: Consistent with acute cholecystitis. * WBC: 15K. Treatment: * Started on Zosyn. * Surgery declined admission. * Review of Systems 2 Review of Systems: Gen: no fever Resp: no sob, no cough CV: no chest, no JARAMILLO, no leg edema GI: + n/v, + abd pain Neuro: No confusion Yes all other systems are reviewed and are negative [facility] Medical History Schizoaffective disorder Confusion Skin rash Vitamin D deficiency HTN (hypertension) HLD (hyperlipidemia) Cellulitis of leg, left Skin excoriation Urinary urgency Encounter to establish care Arthralgia of shoulder region, left Cervical spondylitis with radiculitis Myofascial pain on left side Depression OCD (obsessive compulsive disorder) DJD (degenerative joint disease) SI (sacroiliac) joint dysfunction Fibromyalgia GERD (gastroesophageal reflux disease) Neuropathy Diabetes Family History Father No problems noted. Mother No problems noted. Surgical History History of surgery Social History Household Members: Spouse Household Members Other:: 1 Housing: House Do you presently have visiting nurse or other home services: No Alcohol intake: former Comment: SI 1:1 Patient Tobacco Use Status: Never used Tobacco Tobacco use type: Cigarette Smoked in Last 30 Days: No e-Cigarette/Vaping Use: Never Used Second Hand Smoke Exposure: No Use of substances other than those prescribed or required for medical reasons: No Advance Directives: No Advance Directives Information Provided: Yes Do you have a plan to hurt others: No Plan service: No Current occupational status: retired Cognitive needs: Yes (cane) Hearing needs: Yes (hearing aide) Vision needs: Yes (glasses) Meds Allergies Allergy/AdvReac Type Severity Reaction Status Date / Time codeine [Codeine] Allergy Unknown NAUSEA AND Verified 05/23/24 05:42 VOMITING, nausea pregabalin Allergy Unknown Confusion Verified 05/23/24 05:42 rosuvastatin [Crestor] Allergy Unknown joint pain Verified 05/23/24 05:42 NSAIDS (Non-Steroidal Allergy Swelling Verified 05/23/24 05:42 Anti-Inflamma oxycodone [From OxyContin] Allergy Itching Verified 05/23/24 05:42 [place] Insulin Allergy Unknown severe Uncoded 05/23/24 05:42 itching tapes, adhesives, tegaderm, Allergy Unknown rash Uncoded 05/23/24 05:42 st wellbutrin Allergy Unknown rash Uncoded 05/23/24 05:42 lexapro AdvReac Severe lethargic Uncoded 05/23/24 05:42 Home Medications ?Medication ?Instructions ?Recorded ?Confirmed ?Last Taken ?Type aspirin 81 mg tablet,delayed 81 mg PO BEDTIME 01/01/21 01/12/24 Unknown History release (Adult Aspirin Regimen) lorazepam 0.5 mg tablet 0.5 - 1 mg PO BID PRN ANXIETY OR 01/01/21 01/12/24 Unknown History SLEEP biotin 1 mg capsule 1 mg PO DAILY 05/17/21 01/12/24 Unknown History omega 0-ytj-bjy-fish oil 1,000 mg 1 cap PO DAILY 05/17/21 01/12/24 Unknown History (120 mg-180 mg) capsule (Fish Oil) blood sugar diagnostic (OneTouch #10 ea 05/27/21 10/30/23 Unknown History Ultra Test strips) levocetirizine 5 mg tablet (Xyzal) 5 mg PO DAILY 09/09/21 01/12/24 Unknown History insulin glargine 100 unit/mL (3 45 unit subcut DAILY 03/01/23 01/12/24 Unknown History mL) subcutaneous pen (Basaglar DanishaikPen U-100 Insulin) docusate sodium 100 mg capsule 100 mg PO DAILY PRN 12/28/23 01/12/24 Unknown History (Colace) lurasidone 20 mg tablet 20 mg PO DAILY 12/28/23 01/12/24 Unknown History diclofenac sodium 75 mg 75 mg PO BID 05/23/24 Unknown History tablet,delayed release duloxetine 30 mg capsule,delayed 30 mg PO BEDTIME 05/23/24 Unknown History release ondansetron HCl 4 mg tablet 4 mg PO BID 05/23/24 Unknown History Physical Exam 2 Vital Signs and Narrative: Vital Signs: Last Vital Signs Temp 98.3 F 05/23/24 18:48 Pulse 86 05/23/24 18:48 Resp 17 05/23/24 18:48 BP 136/66 05/23/24 18:48 Pulse Ox 97 05/23/24 18:48 O2 Del Method Room Air 05/23/24 18:48 BMI result Body Mass Index 29.3 Const: Other: Constitutional: Alert, in no distress, Mental Status: Oriented to person, place and time. Eyes: Pupils are equal, round and reactive to light. Ear, Nose and Throat: Oropharynx clear, mucous membranes moist. Ears and nose without eformities. Trachea midline. Respiratory: Clear to auscultation. No wheezing, rales or rhonchi. Cardiovascular: S1 S2 regular. No murmurs, rubs or gallops. Gastrointestinal: Abdomen soft, right upper quadrant tenderness with deep palpation., non-distended. Normal bowel sounds.? Neurologic: Cranial nerves II-XII grossly intact. No focal neurological deficits. Moves all extremities spontaneously.? Skin: No rashes or lesions.? Musculoskeletal: No cyanosis or clubbing. Psychiatric: Normal mood and affect? Results Labs 05/23/24 06:39 05/23/24 09:23 Labs: Laboratory Results - last 24 hr 05/23/24 05/23/24 05/23/24 06:39 08:25 08:29 MCV 94.8 MCH 31.6 MCHC 33.3 RDW 12.2 Plt Count 423 H MPV 8.9 L Absolute Nucleated RBC 0.050 H Nucleated RBC % (auto) 0.3 H Anion Gap Estim Creat Clear Calc Estimated GFR Random Glucose Calcium Magnesium Total Bilirubin Direct Bilirubin AST ALT Alkaline Phosphatase Total Protein Albumin Lipase Urine Color Yellow Urine Appearance Clear Urine pH 5.5 Ur Specific [place] >= 1.030 H Urine Protein Trace Urine Glucose (UA) Negative Urine Ketones 40 Urine Blood Negative Urine Nitrite Negative Ur Leukocyte Esterase Negative Influenza Type A (PCR) NEGATIVE Influenza Type B (PCR) NEGATIVE RSV RNA Qual (PCR) NEGATIVE SARS-CoV-2 RNA (RT-PCR) NEGATIVE 05/23/24 09:23 MCV MCH MCHC RDW Plt Count MPV Absolute Nucleated RBC Nucleated RBC % (auto) Anion Gap 17 Estim Creat Clear Calc 64.8 Estimated GFR > 60 Random Glucose 179 H Calcium 8.8 D Magnesium 1.6 Total Bilirubin 0.5 Direct Bilirubin 0.2 AST 36 H ALT 24 Alkaline Phosphatase 75 Total Protein 7.2 Albumin 3.7 Lipase 14 Urine Color Urine Appearance Urine pH Ur Specific [place] Urine Protein Urine Glucose (UA) Urine Ketones Urine Blood Urine Nitrite Ur Leukocyte Esterase Influenza Type A (PCR) Influenza Type B (PCR) RSV RNA Qual (PCR) SARS-CoV-2 RNA (RT-PCR) Imaging Radiologist's Impressions: Impressions Abdomen Ultrasound 05/23/24 10:25 IMPRESSION: 1. Cirrhotic morphology of the liver. No suspicious lesion. 2. Gallbladder sludge, stones, and borderline wall thickening without definite sonographic evidence of acute cholecystitis. Negative sonographic Segura sign. Recommend correlation with HIDA if there is high clinical suspicion. 3. No biliary dilatation. 4. There are are left renal cysts. 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 Status: Acute (3) Hypothyroidism: Status: Acute Plan 74-year-old female with a past medical history of HTN, HLD, hypothyroidism, GERD, insulin-dependent type 2 diabetes, fibromyalgia, depression, and OCD presenting to the ED with three days of nausea, vomiting, and abdominal discomfort and found to have acute cholecystitis Acute cholecystitis Continue Zosyn started 05/23 Surgery consult Morphine for pain Zofran for nausea and vomiting IV fluid NPO after midnight in the event that surgery is considered Insulin dependent type 2 diabetes mellitus Sliding-scale insulin restart basal insulin tomorrow if no surgery Fibromyalgia Continue gabapentin Hypothyroidism Continue levothyroxine Mood disorder Continue home meds HLD Continue statin Full Code DVT Prophylaxis: Lovenox Admission for at least 2 midnights for management of acute cholecystitis needing IV antibiotics and surgical evaluation for possible cholecystectomy Quality Stroke Does the patient have a stroke diagnosis?: No VTE Prior VTE?: No VTE Risk Level:: Medical - moderate - high VTE Device Contraindication: N/A - Device Ordered VTE Drug Contraindication: N/A - Med Ordered
--- NOTE | 2024-05-23 21:28 | PHA.MEDREC ---
Addendum entered by Vonnie Quiroga RPh 05/23/24 21:36: reviewed by [facility]. Original Note: Pharmacy Consult ? Medication Reconciliation Pharmacy has completed the medication reconciliation. Spoke to patient to confirm med list. Patient had a list of medications with her. Patient states she is no longer taking Duloxetine 30 mg, Latuda 20 mg ( states it's a long story) and Onadsetron 4 mg. Patient says she can't remember when the last time she took her medications because she has been sick.
[2024-05-23] MEDS: Enoxaparin Sodium 40 MG/0.4 ML SYRINGE SUBCUT (21:32)
[2024-05-23] MEDS: Lactated Ringers 1,000 ML 125 ML IVCONT (21:34)
[2024-05-23 21:37] LABS: Glucose, Whole Blood 138 mg/dL (60-115)
[2024-05-23 23:09] VITALS: BP 150/66; PULSE 80; RESP 14; TEMP 37; O2SAT 98
[2024-05-24] VITALS (13 sets, daily range): BP systolic 128–177; BP diastolic 58–82; PULSE 59–74; RESP 16–18; TEMP 35.9–37.3; O2SAT 95–100
[2024-05-24] MEDS: Piperacillin Sodium/Tazobactam 3.375 GM in 0.9 % Sodium Chloride 50 ML IV ×4 (02:00→20:40)
--- NOTE | 2024-05-24 02:23 | PC.NURSE ---
pt gets oob on her own, steady gait. pt unplugs the pump from the wall and walks to the bathroom accross the pedraza. pt gets back in bed on her own, rn checks the pump.
--- NOTE | 2024-05-24 03:31 | MHC.EDTECH ---
This tech took over care of pt at this time,rounded and introduced self to pt,patient appears comfortable,call hartmann in reach
[2024-05-24 05:01] LABS: Alanine Aminotransferase 26 U/L (0-31); Albumin Level 3.6 g/dL (3.5-5.0); Alkaline Phosphatase 71 U/L (39-117); Anion Gap 18 (12-20); Aspartate Amino Transferase 50 U/L (5-31); Bilirubin Total 0.6 mg/dL (0.0-1.0); Blood Urea Nitrogen 20 mg/dL (9-16); Calcium 9.2 mg/dL (8.4-10.2); Carbon Dioxide 18 mmol/L (22-29); Chloride 108 mmol/L (96-108); Creatinine Clr Calc Pharmacy 62.1; Estimated Glomerular Filt Rate > 60; Glucose Random 129 mg/dL (60-115); Potassium 4.7 mmol/L (3.3-5.1); Sodium 139 mmol/L (135-145); Total Protein 6.9 g/dL (6.5-8.0)
[2024-05-24] MEDS: Lactated Ringers 1,000 ML 125 ML IVCONT ×3 (06:33→23:04)
[2024-05-24] MEDS: Omeprazole 40 MG CAPSULE.DR PO (06:33)
[2024-05-24] MEDS: Levothyroxine Sodium 125 MCG TABLET PO (07:50)
[2024-05-24 07:57] LABS: Glucose, Whole Blood 128 mg/dL (60-115)
--- NOTE | 2024-05-24 08:49 | P.HPGS_ITS ---
History of Present Illness History of Present Illness Date of Service: 05/24/24 Chief complaint: Acute Cholecystitis Narrative: Lizzette Steiner is a 74 year old female was seen emergency department a week ago who re-presented with similar complaints of nausea, vomiting, upper abdominal pain. Because of progression of symptoms she returned and workup including ultrasound and HIDA scan are consistent with the acute cholecystitis. Patient was not a very good historian. She lives at home with her who has dementia. Patient has a significant past medical and surgical history for a variety of comorbidities. She also has had 2 prior abdominal surgeries. One was an appendectomy, she does not recall the other. Chart was reviewed and patient evaluated PMFSH Past Medical History Medical History Schizoaffective disorder Confusion Skin rash Vitamin D deficiency HTN (hypertension) HLD (hyperlipidemia) Cellulitis of leg, left Skin excoriation Urinary urgency Encounter to establish care Arthralgia of shoulder region, left Cervical spondylitis with radiculitis Myofascial pain on left side Depression OCD (obsessive compulsive disorder) DJD (degenerative joint disease) SI (sacroiliac) joint dysfunction Fibromyalgia GERD (gastroesophageal reflux disease) Neuropathy Diabetes Family History Family History Father No problems noted. Mother No problems noted. Surgical History Surgical History History of surgery Social History Social History Household Members: Spouse Household Members Other:: 1 Housing: House Do you presently have visiting nurse or other home services: No Alcohol intake: former Comment: SI 1:1 Patient Tobacco Use Status: Never used Tobacco Tobacco use type: Cigarette Smoked in Last 30 Days: No e-Cigarette/Vaping Use: Never Used Second Hand Smoke Exposure: No Use of substances other than those prescribed or required for medical reasons: No Advance Directives: No Advance Directives Information Provided: Yes Do you have a plan to hurt others: No Plan Nutrition Risks: No Nutritional Risk service: No Current occupational status: retired Cognitive needs: Yes (cane) Hearing needs: Yes (hearing aide) Vision needs: Yes (glasses) Meds Allergies Allergy/AdvReac Type Severity Reaction Status Date / Time codeine [Codeine] Allergy Unknown NAUSEA AND Verified 05/23/24 05:42 VOMITING, nausea pregabalin Allergy Unknown Confusion Verified 05/23/24 05:42 rosuvastatin [Crestor] Allergy Unknown joint pain Verified 05/23/24 05:42 NSAIDS (Non-Steroidal Allergy Swelling Verified 05/23/24 05:42 Anti-Inflamma oxycodone [From OxyContin] Allergy Itching Verified 05/23/24 05:42 [place] Insulin Allergy Unknown severe Uncoded 05/23/24 05:42 itching tapes, adhesives, tegaderm, Allergy Unknown rash Uncoded 05/23/24 05:42 st wellbutrin Allergy Unknown rash Uncoded 05/23/24 05:42 lexapro AdvReac Severe lethargic Uncoded 05/23/24 05:42 Active Medications: Current Medications Acetaminophen (Acetaminophen 325 Mg Tablet) 650 mg PO Q6H PRN PRN Reason: Pain, Mild 1-3,fever,headache Aspirin (Aspirin Enteric Coated 81 Mg Tablet.Dr) 81 mg PO BEDTIME [facility] Atorvastatin Calcium (Atorvastatin Calcium 20 Mg Tablet) 20 mg PO DAILY [facility] Calcium Carbonate (Calcium Carbonate 750 Mg Tab.Chew) 750 mg PO Q4H PRN PRN Reason: Heartburn Dextrose (Dextrose 50 % 25 Gm/50 Ml Syringe) 25 gm IVPUSH Q15M PRN; Protocol PRN Reason: per Hypoglycemia Standing Ord. Docusate Sodium (Docusate Sodium 100 Mg Capsule) 100 mg PO DAILY PRN PRN Reason: Constipation Enoxaparin Sodium (Enoxaparin Sodium 40 Mg/0.4 Ml Syringe) 40 mg SUBCUT Q24H [facility] Last Admin: 05/23/24 21:32 Dose: 40 mg Gabapentin (Gabapentin 400 Mg Capsule) 400 mg PO TID [facility] Glucose (Glucose Gel 15 Gm Gel..Gram.) 15 gm PO Q15M PRN; Protocol PRN Reason: per Hypoglycemia Standing Ord. Hydroxyzine HCl (Hydroxyzine Hcl 25 Mg Tablet) 25 mg PO BID PRN PRN Reason: Itching Lactated Ringer's (Lr) 1,000 mls @ 125 mls/hr IVCONT .Q8H [facility] Last Admin: 05/24/24 06:33 Dose: 125 mls/hr Piperacillin Sod/Tazobactam (Sod 3.375 gm/ Sodium Chloride) 50 mls @ 100 mls/hr IV Q6H [facility] Last Infusion: 05/24/24 02:40 Dose: Infused Insulin Glargine (Insulin Glargine,Hum.Rec.Anlog 100 Unit/Ml 10 Ml Vial) 20 unit SUBCUT DAILY [facility] Insulin Human Lispro (Insulin Lispro 100 Unit/Ml 3 Ml Vial) 0 unit SUBCUT QIDACHS [facility]; Protocol Last Admin: 05/24/24 07:52 Dose: Not Given Levothyroxine Sodium (Levothyroxine Sodium 125 Mcg Tablet) 125 mcg PO DAILY@0 630 [facility] Last Admin: 05/24/24 07:50 Dose: 125 mcg Loratadine (Loratadine 10 Mg Tablet) 10 mg PO DAILY PRN PRN Reason: Allergy Symptoms Lorazepam (Lorazepam 0.5 Mg Tablet) 0.5 mg PO BID PRN PRN Reason: Anxiety Magnesium Hydroxide (Milk Of Magnesia 30 Ml Oral.Susp) 30 ml PO DAILY PRN PRN Reason: Constipation Magnesium Oxide (Magnesium Oxide 400 Mg Tablet) 400 mg PO DAILY [facility] Melatonin (Melatonin 3 Mg Tablet) 6 mg PO BEDTIME PRN PRN Reason: Insomnia Morphine Sulfate (Morphine Sulfate 2 Mg/Ml Cartridge) 2 mg IVPUSH Q3H PRN; Protocol PRN Reason: Pain, Moderate(Pain Scale 4-6) Omeprazole (Omeprazole 40 Mg Capsule.Dr) 40 mg PO DAILY@0630 [facility] Last Admin: 05/24/24 06:33 Dose: 40 mg Ondansetron HCl (Ondansetron Hcl 4 Mg/2 Ml Vial) 4 mg IVPUSH Q8H PRN PRN Reason: Nausea and Vomiting Pyridoxine HCl (Pyridoxine Hcl (Vitamin B6) 50 Mg Tablet) 100 mg PO DAILY [facility] Sodium Chloride (0.9 % Sodium Chloride Flush 3 Ml Syringe) 3 ml IVFLUSH QSHIFT [facility] Last Admin: 05/24/24 01:06 Dose: Not Given Home Medications ?Medication ?Instructions ?Recorded ?Confirmed ?Last Taken ?Type aspirin 81 mg tablet,delayed 81 mg PO BEDTIME 01/01/21 05/23/24 Unknown History release (Adult Aspirin Regimen) lorazepam 0.5 mg tablet 0.5 - 1 mg PO BID PRN ANXIETY OR 01/01/21 05/23/24 Unknown History SLEEP biotin 1 mg capsule 1 mg PO DAILY 05/17/21 05/23/24 Unknown History omega 8-auo-she-fish oil 1,000 mg 1 cap PO DAILY PRN supplemnt 05/17/21 05/23/24 Unknown History (120 mg-180 mg) capsule (Fish Oil) blood sugar diagnostic (OneTouch #10 ea 05/27/21 10/30/23 Unknown History Ultra Test strips) levocetirizine 5 mg tablet (Xyzal) 5 mg PO DAILY PRN Allergy Symptoms 09/09/21 05/23/24 Unknown History insulin glargine 100 unit/mL (3 46 unit subcut DAILY 03/01/23 05/23/24 Unknown History mL) subcutaneous pen (Basaglar KwikPen U-100 Insulin) docusate sodium 100 mg capsule 100 mg PO DAILY PRN Constipation 12/28/23 05/23/24 Unknown History (Colace) diclofenac sodium 75 mg 75 mg PO BID PRN Pain 05/23/24 05/23/24 Unknown History tablet,delayed release hydroxyzine pamoate 25 mg capsule 25 mg PO BID PRN Itching 05/23/24 05/23/24 Unknown History omeprazole 40 mg capsule,delayed 40 mg PO DAILY@0630 05/23/24 05/23/24 Unknown History release Physical Exam Vital Signs: Vital Signs: Last Vital Signs Temp 98.7 F 05/24/24 08:47 Pulse 65 05/24/24 08:47 Resp 18 05/24/24 08:47 BP 154/76 H 05/24/24 08:47 Pulse Ox 98 05/24/24 08:47 O2 Del Method Room Air 05/24/24 08:47 BMI result Body Mass Index 29.3 Const: Other: Elderly corpulent female. Chest: Other: Chest breath sounds bilaterally, HS 1 in 2 GI: Other: Abdomen is very corpulent, soft. Lower midline scar. Marked right upper quadrant tenderness. No evidence of any guarding, rebound, or rigidity. Results Results Labs: BMP 05/23/24 05/24/24 09:23 04:37 Sodium 140 139 Potassium 4.4 4.7 Chloride 107 108 Carbon Dioxide 20 L 18 L BUN 20 H 20 H Creatinine 0.70 0.73 Calcium 8.8 D 9.2 Liver Function 05/23/24 05/24/24 Range/Units 09:23 04:37 Total Bilirubin 0.5 0.6 (0.0-1.0) mg/dL Direct Bilirubin 0.2 (0.0-0.5) mg/dL AST 36 H 50 H (5-31) U/L ALT 24 26 (0-31) U/L Alkaline Phosphatase 75 71 (39-117) U/L Albumin 3.7 3.6 (3.5-5.0) g/dL Urine 05/23/24 Range/Units 08:25 Urine Color Yellow Urine Appearance Clear Urine pH 5.5 (5.0-9.0) Ur Specific [place] >= 1.030 H (1.005-1.025) Urine Protein Trace (Neg-Trace) mg/dL Urine Glucose (UA) Negative (Negative) mg/dL Assessment and Plan (1) Acute cholecystitis: Status: Acute Plan Patient with acute cholecystitis. Risks, benefits, alternatives of the laparoscopic possible open cholecystectomy procedure were reviewed with the xavier becerra and also by phone with her daughter (Olga [phone]). This included but not limited to bleeding, infection, numbness, pain, scarring, bowel or bile duct injury or leak and the patient wishes to proceed. Her daughter also agreed. Also spoke with a nurse friend of the patient by phone as well. Current plan is for laparoscopic cholecystectomy for today as an add on case once an OR room is available Quality Stroke Does the patient have a stroke diagnosis?: No VTE Prior VTE?: No VTE Risk Level:: Medical - moderate - high VTE Device Contraindication: N/A - Device Ordered VTE Drug Contraindication: N/A - Med Ordered Procedures Date of Service Date of Service: 05/24/24
--- NOTE | 2024-05-24 09:18 | PC.NURSE ---
spoke with Dr Mullins after receiving a call from the patients family, they prefer not to have Dr Jama perform her surgery and would like a consult from another surgeons.
--- NOTE | 2024-05-24 09:26 | MHC.CM.PN ---
PT REPORTS SHE LIVES WITH HER WHO HAS DEMENTIA SHE SAYS THEY ARE BOTH STILL VERY INDEPENDENT SHE HAS A CANE AND HEARING AID FOR DME COPY OF HCP REQUESTED PCP: CARIDAD CALABRESE IMM DELIVERED DCP: HOME NO SERVICES VIA FAMILY TRANSPORT
--- NOTE | 2024-05-24 10:28 | PC.NURSE ---
Report given to NEMESIO Arreguin.
--- NOTE | 2024-05-24 10:32 | PM.EVENT ---
Event Note Date of Service: 05/24/24 Event Note: I was requested by family to do laparoscopic cholecystectomy Patient has had multiple visits in the ER with various complaints including nausea, vomiting, upper abdominal pain Ultrasound shows sludge, HIDA scan shows nonvisualizing LFTs are normal Abdomen is soft, mildly tender in right upper quadrant Patient non septic looking I had a long discussion with the patient and her family They want to proceed with cholecystectomy I explained to him the technique of laparoscopic cholecystectomy and possible open cholecystectomy I reviewed the risks including but not limited to bleeding, infections, injury to other organs including bowel, liver and bile ducts, bile leak, retained stones, as well as the benefits and alternatives The patient and the family have given consent Family: Fanny Veloz, cousin, Olga Ramirez , daughter in [place], Time Spent With Patient Time: Total time managing care of this patient today ____ minutes.
--- NOTE | 2024-05-24 10:51 | HO.ANESPROP2 ---
HPI - Anesthesia Eval Consult details Narrative: 74-year-old female with a past medical history of HTN, HLD, hypothyroidism, GERD, insulin-dependent type 2 diabetes, fibromyalgia, depression, and OCD presenting to the ED with three days of nausea, vomiting, and abdominal discomfort. The patient recently had her Latuda dose increased and has been experiencing nonspecific symptoms, including weakness and malaise. She was seen in the ED on 05/15 and discharged home, as well as evaluated at [facility] ED for similar symptoms a few days ago, but was again discharged. Over the past three days, she developed worsening nausea and vomiting, prompting her return to the ED. Additionally, she reports upper abdominal/RUQ discomfort, but no fever scheduled for lap vic PMFSH Active Problems Active Problems: All Active Problems Acute cholecystitis (Acute) Gallbladder sludge (Acute) Decreased oral intake (Acute) Nausea & vomiting (Acute) Cervical spinal stenosis (Acute) Osteoarthritis of shoulders, bilateral (Acute) Knee osteoarthritis (Acute) Schizoaffective disorder (Acute) Overdose (Acute) Post-menopausal (Acute) Diabetic neuropathy (Acute) Hepatic steatosis (Acute) Renal cyst (Acute) Renal stone (Acute) Hypothyroidism (Acute) Obesity (BMI 30-39.9) (Acute) Elevated LFTs (Acute) Confusion (Acute) Vitamin D deficiency (Acute) HTN (hypertension) (Acute) HLD (hyperlipidemia) (Acute) Internal hemorrhoid (Acute) External hemorrhoid (Acute) Bilateral edema of lower extremity (Acute) Fibromyalgia (Acute) Compulsive scratching behavior (Acute) Physical exam (Acute) Urinary urgency (Acute) OCD (obsessive compulsive disorder) (Acute) Depression (Acute) GERD (gastroesophageal reflux disease) (Acute) Uncontrolled diabetes mellitus (Acute) Change in hearing (Acute) Type II diabetes mellitus (Acute) Urinary incontinence (Acute) Arthralgia of shoulder region, left (Acute) Cervical spondylitis with radiculitis (Acute) Myofascial pain on left side (Acute) Past Medical History Medical History Schizoaffective disorder Confusion Skin rash Vitamin D deficiency HTN (hypertension) HLD (hyperlipidemia) Cellulitis of leg, left Skin excoriation Urinary urgency Encounter to establish care Arthralgia of shoulder region, left Cervical spondylitis with radiculitis Myofascial pain on left side Depression OCD (obsessive compulsive disorder) DJD (degenerative joint disease) SI (sacroiliac) joint dysfunction Fibromyalgia GERD (gastroesophageal reflux disease) Neuropathy Diabetes Family History Family History Father No problems noted. Mother No problems noted. Family history of problems with anesthesia: No Surgical History Surgical History History of surgery History of Problems with Anesthesia: No Social History Social History Household Members: Spouse Household Members Other:: 1 Housing: House Do you presently have visiting nurse or other home services: No Alcohol intake: former Comment: SI 1:1 Patient Tobacco Use Status: Never used Tobacco Tobacco use type: Cigarette Smoked in Last 30 Days: No e-Cigarette/Vaping Use: Never Used Second Hand Smoke Exposure: No Use of substances other than those prescribed or required for medical reasons: No Advance Directives: No Advance Directives Information Provided: Yes Do you have a plan to hurt others: No Plan Nutrition Risks: No Nutritional Risk service: No Current occupational status: retired Cognitive needs: Yes (cane) Hearing needs: Yes (hearing aide) Vision needs: Yes (glasses) Meds Allergies Allergy/AdvReac Type Severity Reaction Status Date / Time codeine [Codeine] Allergy Unknown NAUSEA AND Verified 05/23/24 05:42 VOMITING, nausea pregabalin Allergy Unknown Confusion Verified 05/23/24 05:42 rosuvastatin [Crestor] Allergy Unknown joint pain Verified 05/23/24 05:42 NSAIDS (Non-Steroidal Allergy Swelling Verified 05/23/24 05:42 Anti-Inflamma oxycodone [From OxyContin] Allergy Itching Verified 05/23/24 05:42 [place] Insulin Allergy Unknown severe Uncoded 05/23/24 05:42 itching tapes, adhesives, tegaderm, Allergy Unknown rash Uncoded 05/23/24 05:42 st wellbutrin Allergy Unknown rash Uncoded 05/23/24 05:42 lexapro AdvReac Severe lethargic Uncoded 05/23/24 05:42 Active Medications: Current Medications Acetaminophen (Acetaminophen 325 Mg Tablet) 650 mg PO Q6H PRN PRN Reason: Pain, Mild 1-3,fever,headache Aspirin (Aspirin Enteric Coated 81 Mg Tablet.Dr) 81 mg PO BEDTIME [facility] Atorvastatin Calcium (Atorvastatin Calcium 20 Mg Tablet) 20 mg PO DAILY [facility] Last Admin: 05/24/24 08:55 Dose: Not Given Calcium Carbonate (Calcium Carbonate 750 Mg Tab.Chew) 750 mg PO Q4H PRN PRN Reason: Heartburn Dextrose (Dextrose 50 % 25 Gm/50 Ml Syringe) 25 gm IVPUSH Q15M PRN; Protocol PRN Reason: per Hypoglycemia Standing Ord. Docusate Sodium (Docusate Sodium 100 Mg Capsule) 100 mg PO DAILY PRN PRN Reason: Constipation Enoxaparin Sodium (Enoxaparin Sodium 40 Mg/0.4 Ml Syringe) 40 mg SUBCUT Q24H [facility] Last Admin: 05/23/24 21:32 Dose: 40 mg Gabapentin (Gabapentin 400 Mg Capsule) 400 mg PO TID [facility] Last Admin: 05/24/24 10:20 Dose: Not Given Glucose (Glucose Gel 15 Gm Gel..Gram.) 15 gm PO Q15M PRN; Protocol PRN Reason: per Hypoglycemia Standing Ord. Hydroxyzine HCl (Hydroxyzine Hcl 25 Mg Tablet) 25 mg PO BID PRN PRN Reason: Itching Lactated Ringer's (Lr) 1,000 mls @ 125 mls/hr IVCONT .Q8H [facility] Last Infusion: 05/24/24 10:30 Dose: 0 mls/hr Piperacillin Sod/Tazobactam (Sod 3.375 gm/ Sodium Chloride) 50 mls @ 100 mls/hr IV Q6H [facility] Last Admin: 05/24/24 10:31 Dose: 100 mls/hr Insulin Glargine (Insulin Glargine,Hum.Rec.Anlog 100 Unit/Ml 10 Ml Vial) 20 unit SUBCUT DAILY [facility] Last Admin: 05/24/24 10:20 Dose: Not Given Insulin Human Lispro (Insulin Lispro 100 Unit/Ml 3 Ml Vial) 0 unit SUBCUT QIDACHS [facility]; Protocol Last Admin: 05/24/24 07:52 Dose: Not Given Levothyroxine Sodium (Levothyroxine Sodium 125 Mcg Tablet) 125 mcg PO DAILY@0630 [facility] Last Admin: 05/24/24 07:50 Dose: 125 mcg Loratadine (Loratadine 10 Mg Tablet) 10 mg PO DAILY PRN PRN Reason: Allergy Symptoms Lorazepam (Lorazepam 0.5 Mg Tablet) 0.5 mg PO BID PRN PRN Reason: Anxiety Magnesium Hydroxide (Milk Of Magnesia 30 Ml Oral.Susp) 30 ml PO DAILY PRN PRN Reason: Constipation Magnesium Oxide (Magnesium Oxide 400 Mg Tablet) 400 mg PO DAILY [facility] Last Admin: 05/24/24 08:55 Dose: Not Given Melatonin (Melatonin 3 Mg Tablet) 6 mg PO BEDTIME PRN PRN Reason: Insomnia Morphine Sulfate (Morphine Sulfate 2 Mg/Ml Cartridge) 2 mg IVPUSH Q3H PRN; Protocol PRN Reason: Pain, Moderate(Pain Scale 4-6) Omeprazole (Omeprazole 40 Mg Capsule.Dr) 40 mg PO DAILY@0630 [facility] Last Admin: 05/24/24 06:33 Dose: 40 mg Ondansetron HCl (Ondansetron Hcl 4 Mg/2 Ml Vial) 4 mg IVPUSH Q8H PRN PRN Reason: Nausea and Vomiting Pyridoxine HCl (Pyridoxine Hcl (Vitamin B6) 50 Mg Tablet) 100 mg PO DAILY [facility] Last Admin: 05/24/24 08:55 Dose: Not Given Sodium Chloride (0.9 % Sodium Chloride Flush 3 Ml Syringe) 3 ml IVFLUSH QSHIFT [facility] Last Admin: 05/24/24 08:55 Dose: Not Given Home Medications ?Medication ?Instructions ?Recorded ?Confirmed ?Last Taken ?Type aspirin 81 mg tablet,delayed 81 mg PO BEDTIME 01/01/21 05/23/24 Unknown History release (Adult Aspirin Regimen) lorazepam 0.5 mg tablet 0.5 - 1 mg PO BID PRN ANXIETY OR 01/01/21 05/23/24 Unknown History SLEEP biotin 1 mg capsule 1 mg PO DAILY 05/17/21 05/23/24 Unknown History omega 4-dxs-vqe-fish oil 1,000 mg 1 cap PO DAILY PRN supplemnt 05/17/21 05/23/24 Unknown History (120 mg-180 mg) capsule (Fish Oil) blood sugar diagnostic (OneTouch #10 ea 05/27/21 10/30/23 Unknown History Ultra Test strips) levocetirizine 5 mg tablet (Xyzal) 5 mg PO DAILY PRN Allergy Symptoms 09/09/21 05/23/24 Unknown History insulin glargine 100 unit/mL (3 46 unit subcut DAILY 03/01/23 05/23/24 Unknown History mL) subcutaneous pen (Basaglar EvonPen U-100 Insulin) docusate sodium 100 mg capsule 100 mg PO DAILY PRN Constipation 12/28/23 05/23/24 Unknown History (Colace) diclofenac sodium 75 mg 75 mg PO BID PRN Pain 05/23/24 05/23/24 Unknown History tablet,delayed release hydroxyzine pamoate 25 mg capsule 25 mg PO BID PRN Itching 05/23/24 05/23/24 Unknown History omeprazole 40 mg capsule,delayed 40 mg PO DAILY@0630 05/23/24 05/23/24 Unknown History release Exam Height,Weight and Vital Signs: Height 5 ft 2 in Weight 72.575 kg Last Vital Signs Temp 98.7 F 05/24/24 08:47 Pulse 65 05/24/24 08:47 Resp 18 05/24/24 08:47 BP 154/76 H 05/24/24 08:47 Pulse Ox 98 05/24/24 08:47 O2 Del Method Room Air 05/24/24 08:47 Pertinent Lab Results Pertinent Lab Results: Laboratory Tests 05/23/24 05/23/24 05/23/24 06:39 08:25 08:29 WBC 15.2 H RBC 4.46 Hgb 14.1 Hct 42.3 MCV 94.8 MCH 31.6 MCHC 33.3 RDW 12.2 Plt Count 423 H MPV 8.9 L Absolute Nucleated RBC 0.050 H Nucleated RBC % (auto) 0.3 H Sodium Potassium Chloride Carbon Dioxide Anion Gap BUN Creatinine Estim Creat Clear Calc Estimated GFR POC Glucose Random Glucose Calcium Magnesium Total Bilirubin Direct Bilirubin AST ALT Alkaline Phosphatase Total Protein Albumin Lipase Urine Color Yellow Urine Appearance Clear Urine pH 5.5 Ur Specific [place] >= 1.030 H Urine Protein Trace Urine Glucose (UA) Negative Urine Ketones 40 Urine Blood Negative Urine Nitrite Negative Ur Leukocyte Esterase Negative Influenza Type A (PCR) NEGATIVE Influenza Type B (PCR) NEGATIVE RSV RNA Qual (PCR) NEGATIVE SARS-CoV-2 RNA (RT-PCR) NEGATIVE 05/23/24 05/23/24 05/24/24 09:23 21:34 04:37 WBC RBC Hgb Hct MCV MCH MCHC RDW Plt Count MPV Absolute Nucleated RBC Nucleated RBC % (auto) Sodium 140 139 Potassium 4.4 4.7 Chloride 107 108 Carbon Dioxide 20 L 18 L Anion Gap 17 18 BUN 20 H 20 H Creatinine 0.70 0.73 Estim Creat Clear Calc 64.8 62.1 Estimated GFR > 60 > 60 POC Glucose 138 H Random Glucose 179 H 129 H Calcium 8.8 D 9.2 Magnesium 1.6 Total Bilirubin 0.5 0.6 Direct Bilirubin 0.2 AST 36 H 50 H ALT 24 26 Alkaline Phosphatase 75 71 Total Protein 7.2 6.9 Albumin 3.7 3.6 Lipase 14 Urine Color Urine Appearance Urine pH Ur Specific [place] Urine Protein Urine Glucose (UA) Urine Ketones Urine Blood Urine Nitrite Ur Leukocyte Esterase Influenza Type A (PCR) Influenza Type B (PCR) RSV RNA Qual (PCR) SARS-CoV-2 RNA (RT-PCR) 05/24/24 07:50 WBC RBC Hgb Hct MCV MCH MCHC RDW Plt Count MPV Absolute Nucleated RBC Nucleated RBC % (auto) Sodium Potassium Chloride Carbon Dioxide Anion Gap BUN Creatinine Estim Creat Clear Calc Estimated GFR POC Glucose 128 H Random Glucose Calcium Magnesium Total Bilirubin Direct Bilirubin AST ALT Alkaline Phosphatase Total Protein Albumin Lipase Urine Color Urine Appearance Urine pH Ur Specific [place] Urine Protein Urine Glucose (UA) Urine Ketones Urine Blood Urine Nitrite Ur Leukocyte Esterase Influenza Type A (PCR) Influenza Type B (PCR) RSV RNA Qual (PCR) SARS-CoV-2 RNA (RT-PCR) Airway Mallampati Class: II TM Dist: >3cm Neck ROM: Poor Heart: rrr Lungs: cta Assessment and Plan Assessment Anesthesia Assessment: Anesthesia Plan Discussed and Chart Reviewed Final Anesthetic Review Family History of Problems with Anesthesia: No History of Problems with Anesthesia: No NPO: Yes ASA Class: III Final Preanesthetic Review: No Changes in Pt Med Stat, Meds/Allgs Chart Reviewed and Anes Risks/Benef Reviewed Patient Risk: Intermediate Procedure Risk: Intermediate Anesthetic Plan Anesthetic Plan: GA Disposition: Standard PACU
--- NOTE | 2024-05-24 11:14 | PC.NURSE ---
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 while evaluating patient she stated she had a right mastectomy i forgot to tell you
--- NOTE | 2024-05-24 11:16 | P.PNIM_ITS ---
Subjective Subjective Date of Service: 05/24/24 Interval History: Being followed for abdominal pain diagnosed with acute cholecystitis Complaining of persistent right upper quadrant pain, denies nausea, no vomiting, no diarrhea Complain of generalized joint pain and arthritis Review of Systems All other system reviewed and are negative Physical Exam 2 Vital Signs: Vital Signs: Last Vital Signs Temp 98.7 F 05/24/24 08:47 Pulse 65 05/24/24 08:47 Resp 18 05/24/24 08:47 BP 154/76 H 05/24/24 08:47 Pulse Ox 98 05/24/24 08:47 O2 Del Method Room Air 05/24/24 08:47 BMI result Body Mass Index 29.3 Const: Other: General resting comfortably in no acute distress. Anicteric sclera Neck no JVD. CVS regular rate rhythm, Respiratory lungs clear to auscultation, no respiratory distress, no wheeze, no rhonchi. Gastrointestinal abdomen soft, right upper quadrant tenderness to palpation cough bowel sounds audible, no guarding , no rigidity. Extremities no edema. Neuro non focal Skin no rash Appropriate affect Objective Data Active Medications Acetaminophen (Acetaminophen 325 Mg Tablet) 650 mg PO Q6H PRN PRN Reason: Pain, Mild 1-3,fever,headache Aspirin (Aspirin Enteric Coated 81 Mg Tablet.) 81 mg PO BEDTIME [facility] Atorvastatin Calcium (Atorvastatin Calcium 20 Mg Tablet) 20 mg PO DAILY [facility] Last Admin: 05/24/24 08:55 Dose: Not Given Documented By: ALEXUS Non-Admin Reason: NPO Calcium Carbonate (Calcium Carbonate 750 Mg Tab.Chew) 750 mg PO Q4H PRN PRN Reason: Heartburn Dextrose (Dextrose 50 % 25 Gm/50 Ml Syringe) 25 gm IVPUSH Q15M PRN; Protocol PRN Reason: per Hypoglycemia Standing Ord. Docusate Sodium (Docusate Sodium 100 Mg Capsule) 100 mg PO DAILY PRN PRN Reason: Constipation Enoxaparin Sodium (Enoxaparin Sodium 40 Mg/0.4 Ml Syringe) 40 mg SUBCUT Q24H [facility] Last Admin: 05/23/24 21:32 Dose: 40 mg Documented By: MADONNA Fentanyl (Fentanyl Citrate/Pf 100 Mcg/2 Ml Vial) 25 mcg IVPUSH Q5M PRN PRN Reason: Pain, Moderate to Severe (Pain Scale 4-10) Stop: 05/24/24 16:52 Gabapentin (Gabapentin 400 Mg Capsule) 400 mg PO TID [facility] Last Admin: 05/24/24 10:20 Dose: Not Given Documented By: ALEXUS Non-Admin Reason: NPO Glucose (Glucose Gel 15 Gm Gel..Gram.) 15 gm PO Q15M PRN; Protocol PRN Reason: per Hypoglycemia Standing Ord. Hydroxyzine HCl (Hydroxyzine Hcl 25 Mg Tablet) 25 mg PO BID PRN PRN Reason: Itching Lactated Ringer's (Lr) 1,000 mls @ 125 mls/hr IVCONT .Q8H [facility] Last Infusion: 05/24/24 10:30 Dose: 0 mls/hr Documented By: ALEXUS Piperacillin Sod/Tazobactam (Sod 3.375 gm/ Sodium Chloride) 50 mls @ 100 mls/hr IV Q6H [facility] Last Admin: 05/24/24 10:31 Dose: 100 mls/hr Documented By: ALEXUS Insulin Glargine (Insulin Glargine,Hum.Rec.Anlog 100 Unit/Ml 10 Ml Vial) 20 unit SUBCUT DAILY [facility] Last Admin: 05/24/24 10:20 Dose: Not Given Documented By: ALEXUS Non-Admin Reason: Physician Approved Comments: Pt NPO for surgery today, hold per MD Mullins. Insulin Human Lispro (Insulin Lispro 100 Unit/Ml 3 Ml Vial) 0 unit SUBCUT QIDACHS [facility]; Protocol Last Admin: 05/24/24 07:52 Dose: Not Given Documented By: HOLDEN Non-Admin Reason: No Insulin Coverage Levothyroxine Sodium (Levothyroxine Sodium 125 Mcg Tablet) 125 mcg PO DAILY@0630 [facility] Last Admin: 05/24/24 07:50 Dose: 125 mcg Documented By: HOLDEN Loratadine (Loratadine 10 Mg Tablet) 10 mg PO DAILY PRN PRN Reason: Allergy Symptoms Lorazepam (Lorazepam 0.5 Mg Tablet) 0.5 mg PO BID PRN PRN Reason: Anxiety Magnesium Hydroxide (Milk Of Magnesia 30 Ml Oral.Susp) 30 ml PO DAILY PRN PRN Reason: Constipation Magnesium Oxide (Magnesium Oxide 400 Mg Tablet) 400 mg PO DAILY [facility] Last Admin: 05/24/24 08:55 Dose: Not Given Documented By: ALEXUS Non-Admin Reason: NPO Melatonin (Melatonin 3 Mg Tablet) 6 mg PO BEDTIME PRN PRN Reason: Insomnia Morphine Sulfate (Morphine Sulfate 2 Mg/Ml Cartridge) 2 mg IVPUSH Q3H PRN; Protocol PRN Reason: Pain, Moderate(Pain Scale 4-6) Naloxone HCl (Naloxone Hcl 0.4 Mg/Ml Vial) 0.04 mg IVPUSH Q5M PRN PRN Reason: Excessive sedation or RR < 8 Omeprazole (Omeprazole 40 Mg Capsule.Dr) 40 mg PO DAILY@0630 [facility] Last Admin: 05/24/24 06:33 Dose: 40 mg Documented By: GREG Ondansetron HCl (Ondansetron Hcl 4 Mg/2 Ml Vial) 4 mg IVPUSH Q8H PRN PRN Reason: Nausea and Vomiting Ondansetron HCl (Ondansetron Hcl 4 Mg/2 Ml Vial) 4 mg IVPUSH ONCE PRN PRN Reason: Nausea and Vomiting Stop: 05/24/24 16:52 Pyridoxine HCl (Pyridoxine Hcl (Vitamin B6) 50 Mg Tablet) 100 mg PO DAILY [facility] Last Admin: 05/24/24 08:55 Dose: Not Given Documented By: ALEXUS Non-Admin Reason: NPO Sodium Chloride (0.9 % Sodium Chloride Flush 3 Ml Syringe) 3 ml IVFLUSH QSHIFT [facility] Last Admin: 05/24/24 08:55 Dose: Not Given Documented By: ALEXUS Non-Admin Reason: IV Running Labs 05/23/24 06:39 05/24/24 04:37 Labs: Laboratory Results - last 24 hr 05/23/24 05/24/24 05/24/24 21:34 04:37 07:50 Anion Gap 18 Estim Creat Clear Calc 62.1 Estimated GFR > 60 POC Glucose 138 H 128 H Random Glucose 129 H Calcium 9.2 Total Bilirubin 0.6 AST 50 H ALT 26 Alkaline Phosphatase 71 Total Protein 6.9 Albumin 3.6 Assessment and Plan (1) Acute cholecystitis: Status: Acute (2) Gallbladder sludge: Status: Acute Plan 74-year-old female with a past medical history of HTN, HLD, hypothyroidism, GERD, insulin-dependent type 2 diabetes, fibromyalgia, depression, and OCD presenting to the ED with three days of nausea, vomiting, and abdominal discomfort and found to have acute cholecystitis Acute cholecystitis Persistent abdominal pain, denies nausea, no vomiting Normal total bili, AST mildly elevated 50, lipase 12, WBC 15.2 Continue Zosyn started 2/20 Morphine for pain Zofran for nausea and vomiting IV fluid/NPO Seen by General surgery plan is for laparoscopic cholecystectomy to me and possible open cholecystectomy Insulin dependent type 2 diabetes mellitus Blood sugars 130s, Sliding-scale insulin On 46 units Lantus at home, will hold basal insulin monitor point of care q.i.d. Fibromyalgia Continue gabapentin Hypothyroidism Continue levothyroxine Mood disorder Continue home meds HLD Continue statin, Full Code DVT Prophylaxis: Lovenox Patient will require continued inpatient hospitalization for management of acute cholecystitis needing IV antibiotics and surgical evaluation for possible cholecystectomy. Quality Stroke Does the patient have a stroke diagnosis?: No VTE Prior VTE?: No VTE Risk Level:: Medical - moderate - high VTE Device Contraindication: N/A - Device Ordered VTE Drug Contraindication: N/A - Med Ordered
--- NOTE | 2024-05-24 12:57 | W.PM.OPN ---
Operative Note Operative Note Date of Service: 05/24/24 Narrative: Preop diagnosis: Acute cholecystitis Postop diagnosis: Acute purulent cholecystitis, marked liver cirrhosis Procedure: Laparoscopic cholecystectomy Surgeon: Jair Smith MD university administrative assistant: DARRIUS Sanon The patient is a 74 year old female was had multiple ER visits for abdominal pain, nausea vomiting. She had an ultrasound and HIDA scan suggesting acute cholecystitis. She agreed to proceed with cholecystectomy. She understood the technique of laparoscopic cholecystectomy as well as the risks, benefits, and alternatives. Her family was involved with the discussion She was brought to the operating room. She was placed supine under general anesthesia via endotracheal tube. The abdomen was prepped and draped in the usual sterile fashion. A surgical time-out was done. The patient was receiving scheduled IV antibiotics. I made a short incision on the supraumbilical margin with a blade 15. This was carried down through the full-thickness of the skin subcutaneous fat down to the fascia. The fascia was incised. The peritoneum was entered. Through this incision a Russo port was introduced. Pneumoperitoneum was introduced to a pressure of 15 mm Hg. From here on the rest of the procedure was done under vision with the 10 mm laparoscope. With laparoscopic visualization and inserted a 5/12 mm port in the epigastric area below the subcostal margin. Two 5 mm ports introduced a small incision below the subcostal margin along the anterior axillary line and the midclavicular line. Graspers were placed through these working ports. The patient was placed in a head up and [id number] position Laparoscopic examination of the right upper quadrant showed a severely cirrhotic liver. The gallbladder was seen and this was erythematous and indurated. I was able to apply a grasper at the fundus and this was used to retract the gallbladder cephalad. We had a little difficulty grasping in the pouch of the gallbladder because of the induration. Eventually was able to apply a grasper to retract this laterally. At this point the gallbladder was being retracted in a cephalad and lateral fashion. Again, the gallbladder was noted to be erythematous and diffusely indurated consistent with acute cholecystitis I proceeded to gently dissect the neck of the gallbladder with the [place] dissector to try to define this. By doing so was able to achieve a critical view of the hepatocystic triangle. The cystic duct was clearly identified along with its confluence with the neck of the gallbladder. I continued to dissected with the [place] dissector until this appeared adequately thinned out. I used multiple clips on the neck. I transected the gallbladder in between clips with 2 clips distally. With gentle dissection I was able to identify the cystic artery. This was carefully dissected and clips were applied. The cystic artery was dissected been clips with Endo scissors I continued to gently dissect the hilum using a combination of the electrocautery spatula as well as the blunt dissection. I dissected a plane of dissection between the gallbladder wall and the liver bed along this plane. Again the gallbladder was markedly indurated and inflamed. There was a tear in the gallbladder we will retraction and there was note of large amounts of pus that was drained from the gallbladder. This was consistent with purulent cholecystitis I continued to separate the gallbladder from the liver bed until it was completely . This was retrieved through an endobag through the umbilical incision. I reinserted all ports and re-insufflated. I copiously irrigated the subhepatic space. I suctioned out the irrigant fluid and this was clear. I examined all 4 quadrants and there was no note of any other pathology or any suggestion of bile leak or any bleeding. There was note of significant adhesions in the lower abdomen . There was note of good hemostasis on the area of dissection. I positioned a #7 YUNG drain in the subhepatic space and this was brought out through the lateral most port site. This was secured to the skin with nylon 3-0 sutures. Once hemostasis was confirmed, I then desufflated the port sites. I removed all ports. I closed the fascia of the umbilical incision with a [id number] Polysorb 0 stitch. Skin closure was achieved on all incisions using Polysorb 4-0 subcuticular running sutures. All incisions were infiltrated with Marcaine 0.5% for postop analgesia. Dressings were applied. The procedure was completed The patient tolerated the procedure well. There were no immediate complications. Initial I final counts of sponges and instruments were correct. Estimated blood loss about 50 cc The patient was extubated without difficulty and transferred to the recovery room with stable vital signs. to
[2024-05-24 13:16] LABS: Glucose, Whole Blood 134 mg/dL (60-115)
--- NOTE | 2024-05-24 14:51 | PC.NURSE ---
patient awake, repsonding to some questions. states she wears hearing aides.
[2024-05-24] MEDS: oxyCODONE HCl Immed Release 5 MG TABLET PO (15:14)
[2024-05-24] MEDS: Gabapentin 400 MG CAPSULE PO ×2 (15:14→20:39)
--- NOTE | 2024-05-24 16:05 | PM.EVENT ---
Event Note Date of Service: 05/24/24 Event Note: Seen postop Status post laparoscopic cholecystectomy earlier today Had purulent gallbladder contents Currently seems to have adequate pain control Stable vital signs Abdomen is soft YUNG drain serosanguineous Continue IV antibiotics Pain management at bedside Time Spent With Patient Time: Total time managing care of this patient today ____ minutes.
[2024-05-24 16:22] LABS: Glucose, Whole Blood 183 mg/dL (60-115)
[2024-05-24 20:14] LABS: Glucose, Whole Blood 209 mg/dL (60-115)
[2024-05-24] MEDS: Morphine Sulfate 4 MG/ML CARTRIDGE IVPUSH (20:39)
[2024-05-24] MEDS: Aspirin Enteric Coated 81 MG TABLET.DR PO (20:39)
[2024-05-24] MEDS: Enoxaparin Sodium 40 MG/0.4 ML SYRINGE SUBCUT (20:40)
[2024-05-24] MEDS: Insulin Lispro 100 UNIT/ML 3 ML VIAL SUBCUT (20:40)
[2024-05-25] MEDS: Piperacillin Sodium/Tazobactam 3.375 GM in 0.9 % Sodium Chloride 50 ML IV ×4 (01:45→21:05)
[2024-05-25 04:00] VITALS: BP 110/59; PULSE 59; TEMP 36.4; O2SAT 93
[2024-05-25] MEDS: Levothyroxine Sodium 125 MCG TABLET PO (05:35)
[2024-05-25] MEDS: Omeprazole 40 MG CAPSULE.DR PO (05:35)
[2024-05-25] MEDS: Lactated Ringers 1,000 ML 125 ML IVCONT (05:56)
[2024-05-25 06:25] LABS: Hematocrit 36.9 % (37.0-47.0); Mean Corpuscular HGB Conc 32.5 g/dl (31.0-35.0); Mean Corpuscular Hemoglobin 31.3 pg (27.0-33.0); Mean Corpuscular Volume 96.3 fL (80.0-98.0); Mean Platelet Volume 8.3 fL (9.4-12.3); Platelet Count 409 X10*3/uL (160-400); Red Blood Count 3.83 X10*6/uL (4.20-5.50); Red Cell Distribution Width 12.1 % (11.0-16.0); White Blood Count 17.6 X10*3/uL (4.8-10.8)
[2024-05-25 06:37] LABS: Anion Gap 15 (12-20); Blood Urea Nitrogen 15 mg/dL (9-16); Calcium 8.9 mg/dL (8.4-10.2); Carbon Dioxide 24 mmol/L (22-29); Chloride 103 mmol/L (96-108); Creatinine Clr Calc Pharmacy 55.3; Estimated Glomerular Filt Rate > 60; Glucose Random 163 mg/dL (60-115); Potassium 3.9 mmol/L (3.3-5.1); Sodium 138 mmol/L (135-145)
[2024-05-25 07:44] VITALS: BP 125/59; PULSE 63; RESP 16; TEMP 36.2; O2SAT 99
[2024-05-25 08:16] LABS: Glucose, Whole Blood 135 mg/dL (60-115)
[2024-05-25] MEDS: Pyridoxine HCl (Vitamin B6) 50 MG TABLET 100 MG PO (09:00)
[2024-05-25] MEDS: Magnesium Oxide 400 MG TABLET PO (09:00)
[2024-05-25] MEDS: Gabapentin 400 MG CAPSULE PO ×3 (09:00→21:06)
[2024-05-25] MEDS: Atorvastatin Calcium 20 MG TABLET PO (09:00)
[2024-05-25] MEDS: 0.9 % Sodium Chloride Flush 3 ML SYRINGE IVFLUSH ×3 (09:01→21:06)
--- NOTE | 2024-05-25 09:51 | P.PNGS_ITS ---
Subjective Subjective Date of Service: 05/25/24 Interval history: Says she had a good night No events reported Tolerating diet Physical Exam 2 Vital Signs: Vital Signs: Last Vital Signs Temp 97.1 F 05/25/24 07:44 Pulse 63 05/25/24 07:44 Resp 16 05/25/24 07:44 BP 125/59 L 05/25/24 07:44 Pulse Ox 99 05/25/24 07:44 O2 Del Method Room Air 05/25/24 07:44 O2 Flow Rate 4 05/24/24 13:19 BMI result Body Mass Index 29.3 Const: General: comfortable and no acute distress Eyes: Other: Anicteric Resp: Effort & Inspection: normal respiratory effort Cardio: Rate: regular rate GI: Other: Dressings dry, YUNG drain scanty serosanguineous Palpation (GI): Soft to palpation, not firm and no guarding Objective Data Active Medications Acetaminophen (Acetaminophen 325 Mg Tablet) 650 mg PO Q6H PRN PRN Reason: Pain, Mild 1-3,fever,headache Aspirin (Aspirin Enteric Coated 81 Mg Tablet.) 81 mg PO BEDTIME [facility] Last Admin: 05/24/24 20:39 Dose: 81 mg Documented By: LAVONNE Atorvastatin Calcium (Atorvastatin Calcium 20 Mg Tablet) 20 mg PO DAILY [facility] Last Admin: 05/25/24 09:00 Dose: 20 mg Documented By: MONIQUE Calcium Carbonate (Calcium Carbonate 750 Mg Tab.Chew) 750 mg PO Q4H PRN PRN Reason: Heartburn Dextrose (Dextrose 50 % 25 Gm/50 Ml Syringe) 25 gm IVPUSH Q15M PRN; Protocol PRN Reason: per Hypoglycemia Standing Ord. Docusate Sodium (Docusate Sodium 100 Mg Capsule) 100 mg PO DAILY PRN PRN Reason: Constipation Enoxaparin Sodium (Enoxaparin Sodium 40 Mg/0.4 Ml Syringe) 40 mg SUBCUT Q24H [facility] Last Admin: 05/24/24 20:40 Dose: 40 mg Documented By: LAVONNE Gabapentin (Gabapentin 400 Mg Capsule) 400 mg PO TID [facility] Last Admin: 05/25/24 09:00 Dose: 400 mg Documented By: MONIQUE Glucose (Glucose Gel 15 Gm Gel..Gram.) 15 gm PO Q15M PRN; Protocol PRN Reason: per Hypoglycemia Standing Ord. Hydroxyzine HCl (Hydroxyzine Hcl 25 Mg Tablet) 25 mg PO BID PRN PRN Reason: Itching Lactated Ringer's (Lr) 1,000 mls @ 125 mls/hr IVCONT .Q8H [facility] Last Admin: 05/25/24 05:56 Dose: 125 mls/hr Documented By: LAVONNE Piperacillin Sod/Tazobactam (Sod 3.375 gm/ Sodium Chloride) 50 mls @ 100 mls/hr IV Q6H [facility] Last Infusion: 05/25/24 09:39 Dose: Infused Documented By: MONIQUE Insulin Human Lispro (Insulin Lispro 100 Unit/Ml 3 Ml Vial) 0 unit SUBCUT QIDACHS [facility]; Protocol Last Admin: 05/25/24 08:22 Dose: Not Given Documented By: MONIQUE Non-Admin Reason: No Insulin Coverage Levothyroxine Sodium (Levothyroxine Sodium 125 Mcg Tablet) 125 mcg PO DAILY@06 [facility] Last Admin: 05/25/24 05:35 Dose: 125 mcg Documented By: LAVONNE Loratadine (Loratadine 10 Mg Tablet) 10 mg PO DAILY PRN PRN Reason: Allergy Symptoms Lorazepam (Lorazepam 0.5 Mg Tablet) 0.5 mg PO BID PRN PRN Reason: Anxiety Magnesium Hydroxide (Milk Of Magnesia 30 Ml Oral.Susp) 30 ml PO DAILY PRN PRN Reason: Constipation Magnesium Oxide (Magnesium Oxide 400 Mg Tablet) 400 mg PO DAILY [facility] Last Admin: 05/25/24 09:00 Dose: 400 mg Documented By: MONIQUE Melatonin (Melatonin 3 Mg Tablet) 6 mg PO BEDTIME PRN PRN Reason: Insomnia Morphine Sulfate (Morphine Sulfate 4 Mg/Ml Cartridge) 4 mg IVPUSH Q4H PRN; Protocol PRN Reason: Pain, Severe (Pain Scale 7-10) Last Admin: 05/24/24 20:39 Dose: 4 mg Documented By: LAVONNE Omeprazole (Omeprazole 40 Mg Capsule.) 40 mg PO DAILY@06 [facility] Last Admin: 05/25/24 05:35 Dose: 40 mg Documented By: LAVONNE Ondansetron HCl (Ondansetron Hcl 4 Mg/2 Ml Vial) 4 mg IVPUSH Q8H PRN PRN Reason: Nausea and Vomiting Oxycodone HCl (Oxycodone Hcl Immed Release 5 Mg Tablet) 5 mg PO Q4H PRN PRN Reason: Pain, Moderate(Pain Scale 4-6) Last Admin: 05/24/24 15:14 Dose: 5 mg Documented By: FATMATA Pyridoxine HCl (Pyridoxine Hcl (Vitamin B6) 50 Mg Tablet) 100 mg PO DAILY [facility] Last Admin: 05/25/24 09:00 Dose: 100 mg Documented By: MONIQUE Sodium Chloride (0.9 % Sodium Chloride Flush 3 Ml Syringe) 3 ml IVFLUSH QSHIFT [facility] Last Admin: 05/25/24 09:01 Dose: 3 ml Documented By: MONIQUE Labs 05/25/24 06:08 05/25/24 06:08 Labs: Laboratory Results - last 24 hr 05/24/24 05/24/24 05/24/24 13:12 16:12 20:10 MCV MCH MCHC RDW Plt Count MPV Absolute Nucleated RBC Nucleated RBC % (auto) Anion Gap Estim Creat Clear Calc Estimated GFR POC Glucose 134 H 183 H 209 H Random Glucose Calcium 05/25/24 05/25/24 06:08 08:10 MCV 96.3 MCH 31.3 MCHC 32.5 RDW 12.1 Plt Count 409 H MPV 8.3 L Absolute Nucleated RBC 0.000 Nucleated RBC % (auto) 0.0 Anion Gap 15 Estim Creat Clear Calc 55.3 Estimated GFR > 60 POC Glucose 135 H Random Glucose 163 H Calcium 8.9 Procedures Date of Service Date of Service: 05/25/24 Progress Note: A&P Assessment and plan (1) Acute cholecystitis: Status: Acute Assessment and Plan: Status post lap cholecystectomy Had purulent cholecystitis - gallbladder filled with pus Doing very well Drain in place - serosanguineous Okay to DC home when medically cleared DC home with YUNG drain - I will remove this in the office on follow-up Discussed with family Fanny Time Spent With Patient Time: Total time managing care of this patient today ____ minutes. Quality Stroke Does the patient have a stroke diagnosis?: No VTE Prior VTE?: No VTE Risk Level:: Medical - moderate - high VTE Device Contraindication: N/A - Device Ordered VTE Drug Contraindication: N/A - Med Ordered
--- NOTE | 2024-05-25 10:05 | HO.POSTANES ---
Post Anesthesia Evaluation Post Anesthesia Evaluation Date of Service: 05/25/24 Vital Signs: Vital Signs Temp Pulse Resp BP Pulse Ox O2 Del Method 05/25/24 07:44 97.1 F 63 16 125/59 L 99 Room Air 05/25/24 04:00 97.6 F 59 110/59 L 93 Room Air Anesthesia: General Endotracheal-GETA Mental Status: Awake Pain Control: Satisfactory Nausea/Vomiting: None Hydration: Adequate Anesthesia-Related Issues: No Anes. Related Issues
--- NOTE | 2024-05-25 10:51 | HO.PM.IMPN ---
Subjective Subjective Date of Service: 05/25/24 Interval History: Status post laparoscopic cholecystectomy Denies abdominal pain, slept well no nausea, no vomiting, no fever, no chills. Review of Systems All other system reviewed and are negative Physical Exam Vital Signs: Vital Signs: Last Vital Signs Temp 97.1 F 05/25/24 07:44 Pulse 63 05/25/24 07:44 Resp 16 05/25/24 07:44 BP 125/59 L 05/25/24 07:44 Pulse Ox 99 05/25/24 07:44 O2 Del Method Room Air 05/25/24 07:44 O2 Flow Rate 4 05/24/24 13:19 BMI result Body Mass Index 29.3 Const: Other: General resting comfortably in no acute distress. Anicteric sclera Neck no JVD. CVS regular rate rhythm, Respiratory lungs clear to auscultation, no respiratory distress, no wheeze, no rhonchi. Gastrointestinal abdomen soft, right upper quadrant dressing in place, YUNG drain with serosanguineous drainage , bowel sounds audible Extremities no edema. Neuro non focal Skin no rash Appropriate affect Objective Data Active Medications Acetaminophen (Acetaminophen 325 Mg Tablet) 650 mg PO Q6H PRN PRN Reason: Pain, Mild 1-3,fever,headache Aspirin (Aspirin Enteric Coated 81 Mg Tablet.) 81 mg PO BEDTIME [facility] Last Admin: 05/24/24 20:39 Dose: 81 mg Documented By: LAVONNE Atorvastatin Calcium (Atorvastatin Calcium 20 Mg Tablet) 20 mg PO DAILY [facility] Last Admin: 05/25/24 09:00 Dose: 20 mg Documented By: MONIQUE Calcium Carbonate (Calcium Carbonate 750 Mg Tab.Chew) 750 mg PO Q4H PRN PRN Reason: Heartburn Dextrose (Dextrose 50 % 25 Gm/50 Ml Syringe) 25 gm IVPUSH Q15M PRN; Protocol PRN Reason: per Hypoglycemia Standing Ord. Docusate Sodium (Docusate Sodium 100 Mg Capsule) 100 mg PO DAILY PRN PRN Reason: Constipation Enoxaparin Sodium (Enoxaparin Sodium 40 Mg/0.4 Ml Syringe) 40 mg SUBCUT Q24H [facility] Last Admin: 05/24/24 20:40 Dose: 40 mg Documented By: LAVONNE Gabapentin (Gabapentin 400 Mg Capsule) 400 mg PO TID [facility] Last Admin: 05/25/24 09:00 Dose: 400 mg Documented By: MONIQUE Glucose (Glucose Gel 15 Gm Gel..Gram.) 15 gm PO Q15M PRN; Protocol PRN Reason: per Hypoglycemia Standing Ord. Hydroxyzine HCl (Hydroxyzine Hcl 25 Mg Tablet) 25 mg PO BID PRN PRN Reason: Itching Lactated Ringer's (Lr) 1,000 mls @ 125 mls/hr IVCONT .Q8H [facility] Last Admin: 05/25/24 05:56 Dose: 125 mls/hr Documented By: LAVONNE Piperacillin Sod/Tazobactam (Sod 3.375 gm/ Sodium Chloride) 50 mls @ 100 mls/hr IV Q6H [facility] Last Infusion: 05/25/24 09:39 Dose: Infused Documented By: MONIQUE Insulin Human Lispro (Insulin Lispro 100 Unit/Ml 3 Ml Vial) 0 unit SUBCUT QIDACHS [facility]; Protocol Last Admin: 05/25/24 08:22 Dose: Not Given Documented By: MONIQUE Non-Admin Reason: No Insulin Coverage Levothyroxine Sodium (Levothyroxine Sodium 125 Mcg Tablet) 125 mcg PO DAILY@0630 [facility] Last Admin: 05/25/24 05:35 Dose: 125 mcg Documented By: LAVONNE Loratadine (Loratadine 10 Mg Tablet) 10 mg PO DAILY PRN PRN Reason: Allergy Symptoms Lorazepam (Lorazepam 0.5 Mg Tablet) 0.5 mg PO BID PRN PRN Reason: Anxiety Magnesium Hydroxide (Milk Of Magnesia 30 Ml Oral.Susp) 30 ml PO DAILY PRN PRN Reason: Constipation Magnesium Oxide (Magnesium Oxide 400 Mg Tablet) 400 mg PO DAILY [facility] Last Admin: 05/25/24 09:00 Dose: 400 mg Documented By: MONIQUE Melatonin (Melatonin 3 Mg Tablet) 6 mg PO BEDTIME PRN PRN Reason: Insomnia Morphine Sulfate (Morphine Sulfate 4 Mg/Ml Cartridge) 4 mg IVPUSH Q4H PRN; Protocol PRN Reason: Pain, Severe (Pain Scale 7-10) Last Admin: 05/24/24 20:39 Dose: 4 mg Documented By: LAVONNE Omeprazole (Omeprazole 40 Mg Capsule.Dr) 40 mg PO DAILY@0630 [facility] Last Admin: 05/25/24 05:35 Dose: 40 mg Documented By: LAVONNE Ondansetron HCl (Ondansetron Hcl 4 Mg/2 Ml Vial) 4 mg IVPUSH Q8H PRN PRN Reason: Nausea and Vomiting Oxycodone HCl (Oxycodone Hcl Immed Release 5 Mg Tablet) 5 mg PO Q4H PRN PRN Reason: Pain, Moderate(Pain Scale 4-6) Last Admin: 05/24/24 15:14 Dose: 5 mg Documented By: FATMATA Pyridoxine HCl (Pyridoxine Hcl (Vitamin B6) 50 Mg Tablet) 100 mg PO DAILY [facility] Last Admin: 05/25/24 09:00 Dose: 100 mg Documented By: MONIQUE Sodium Chloride (0.9 % Sodium Chloride Flush 3 Ml Syringe) 3 ml IVFLUSH QSHIFT [facility] Last Admin: 05/25/24 09:01 Dose: 3 ml Documented By: MONIQUE Labs 05/25/24 06:08 05/25/24 06:08 Labs: Laboratory Results - last 24 hr 05/24/24 05/24/24 05/24/24 13:12 16:12 20:10 MCV MCH MCHC RDW Plt Count MPV Absolute Nucleated RBC Nucleated RBC % (auto) Anion Gap Estim Creat Clear Calc Estimated GFR POC Glucose 134 H 183 H 209 H Random Glucose Calcium 05/25/24 05/25/24 06:08 08:10 MCV 96.3 MCH 31.3 MCHC 32.5 RDW 12.1 Plt Count 409 H MPV 8.3 L Absolute Nucleated RBC 0.000 Nucleated RBC % (auto) 0.0 Anion Gap 15 Estim Creat Clear Calc 55.3 Estimated GFR > 60 POC Glucose 135 H Random Glucose 163 H Calcium 8.9 Assessment and Plan (1) Acute cholecystitis: Status: Acute Plan 74-year-old female with a past medical history of HTN, HLD, hypothyroidism, GERD, insulin-dependent type 2 diabetes, fibromyalgia, depression, and OCD presenting to the ED with three days of nausea, vomiting, and abdominal discomfort and found to have acute cholecystitis Acute cholecystitis Status post cholecystectomy postoperative day 1 Persistent leukocytosis Continue Zosyn started 2/20 Morphine for pain, DC oxycodone causes itching Zofran for nausea and vomiting Insulin dependent type 2 diabetes mellitus Blood sugars 130s,on Sliding-scale insulin On 46 units Lantus at home, will hold basal insulin monitor point of care q.i.d. Fibromyalgia Continue gabapentin Hypothyroidism Continue levothyroxine Mood disorder Continue home meds HLD Continue statin, Full Code DVT Prophylaxis: Lovenox Patient will require continued inpatient hospitalization for IV antibiotics status post cholecystectomy with infected gallbladder . Quality Stroke Does the patient have a stroke diagnosis?: No VTE Prior VTE?: No VTE Risk Level:: Medical - moderate - high VTE Device Contraindication: N/A - Device Ordered VTE Drug Contraindication: N/A - Med Ordered
[2024-05-25 11:14] LABS: Glucose, Whole Blood 157 mg/dL (60-115)
[2024-05-25] MEDS: Insulin Lispro 100 UNIT/ML 3 ML VIAL SUBCUT ×2 (11:39→21:13)
[2024-05-25] MEDS: Morphine Sulfate 4 MG/ML CARTRIDGE IVPUSH ×2 (14:20→21:06)
[2024-05-25 15:27] VITALS: BP 114/57; PULSE 68; RESP 16; TEMP 36.7; O2SAT 96
[2024-05-25 16:09] LABS: Glucose, Whole Blood 137 mg/dL (60-115)
[2024-05-25 19:18] VITALS: BP 130/63; PULSE 65; RESP 20; TEMP 37.1; O2SAT 97
[2024-05-25 20:17] LABS: Glucose, Whole Blood 178 mg/dL (60-115)
[2024-05-25] MEDS: Enoxaparin Sodium 40 MG/0.4 ML SYRINGE SUBCUT (21:04)
[2024-05-25] MEDS: Aspirin Enteric Coated 81 MG TABLET.DR PO (21:04)
[2024-05-26] MEDS: Piperacillin Sodium/Tazobactam 3.375 GM in 0.9 % Sodium Chloride 50 ML IV (03:26)
[2024-05-26 03:31] VITALS: BP 126/58; PULSE 69; RESP 16; TEMP 36.8; O2SAT 96
[2024-05-26] MEDS: Omeprazole 40 MG CAPSULE.DR PO (06:20)
[2024-05-26] MEDS: Levothyroxine Sodium 125 MCG TABLET PO (06:20)
[2024-05-26 06:35] LABS: Hematocrit 31.1 % (37.0-47.0); Hemoglobin 10.5 g/dl (12.0-16.0); Mean Corpuscular HGB Conc 33.8 g/dl (31.0-35.0); Mean Corpuscular Hemoglobin 32.1 pg (27.0-33.0); Mean Corpuscular Volume 95.1 fL (80.0-98.0); Mean Platelet Volume 8.6 fL (9.4-12.3); Platelet Count 400 X10*3/uL (160-400); Red Blood Count 3.27 X10*6/uL (4.20-5.50); Red Cell Distribution Width 12.3 % (11.0-16.0); White Blood Count 12.6 X10*3/uL (4.8-10.8)
[2024-05-26 06:37] LABS: Anion Gap 12 (12-20); Blood Urea Nitrogen 16 mg/dL (9-16); Calcium 8.7 mg/dL (8.4-10.2); Carbon Dioxide 25 mmol/L (22-29); Chloride 103 mmol/L (96-108); Creatinine Clr Calc Pharmacy 61.2; Estimated Glomerular Filt Rate > 60; Glucose Random 134 mg/dL (60-115); Potassium 3.4 mmol/L (3.3-5.1); Sodium 137 mmol/L (135-145)
[2024-05-26 08:00] VITALS: BP 127/60; PULSE 68; RESP 16; TEMP 36.6; O2SAT 96
[2024-05-26 08:10] LABS: Glucose, Whole Blood 133 mg/dL (60-115)
[2024-05-26] MEDS: Atorvastatin Calcium 20 MG TABLET PO (08:34)
[2024-05-26] MEDS: Gabapentin 400 MG CAPSULE PO ×3 (08:34→20:21)
[2024-05-26] MEDS: traMADoL HCL 50 MG TABLET 25 MG PO (08:34)
[2024-05-26] MEDS: Magnesium Oxide 400 MG TABLET PO (08:34)
[2024-05-26] MEDS: Pyridoxine HCl (Vitamin B6) 50 MG TABLET 100 MG PO (08:34)
[2024-05-26] MEDS: Amoxicillin/Potassium Clav 875 MG TABLET PO ×2 (08:34→20:20)
--- NOTE | 2024-05-26 10:10 | P.PNGS_ITS ---
Subjective Subjective Date of Service: 05/26/24 Interval history: Good oral intake Feels well Denies complaints Physical Exam 2 Vital Signs: Vital Signs: Last Vital Signs Temp 97.9 F 05/26/24 08:00 Pulse 68 05/26/24 08:00 Resp 16 05/26/24 08:00 BP 127/60 05/26/24 08:00 Pulse Ox 96 05/26/24 08:00 O2 Del Method Room Air 05/26/24 08:00 O2 Flow Rate 4 05/24/24 13:19 BMI result Body Mass Index 29.3 Const: General: comfortable and no acute distress Eyes: Sclerae: sclerae normal Resp: Effort & Inspection: normal respiratory effort GI: Other: Incisions clean and dry, YUNG drain serosanguineous Palpation (GI): Soft to palpation, not firm and no guarding Objective Data Active Medications Acetaminophen (Acetaminophen 325 Mg Tablet) 650 mg PO Q6H PRN PRN Reason: Pain, Mild 1-3,fever,headache Amoxicillin/Clavulanate Potassium (Amoxicillin/Potassium Clav 875 Mg Tablet) 875 mg PO Q12H [facility] Last Admin: 05/26/24 08:34 Dose: 875 mg Documented By: MONIQUE Aspirin (Aspirin Enteric Coated 81 Mg Tablet.Dr) 81 mg PO BEDTIME [facility] Last Admin: 05/25/24 21:04 Dose: 81 mg Documented By: ARGENTINA Atorvastatin Calcium (Atorvastatin Calcium 20 Mg Tablet) 20 mg PO DAILY [facility] Last Admin: 05/26/24 08:34 Dose: 20 mg Documented By: MONIQUE Calcium Carbonate (Calcium Carbonate 750 Mg Tab.Chew) 750 mg PO Q4H PRN PRN Reason: Heartburn Dextrose (Dextrose 50 % 25 Gm/50 Ml Syringe) 25 gm IVPUSH Q15M PRN; Protocol PRN Reason: per Hypoglycemia Standing Ord. Docusate Sodium (Docusate Sodium 100 Mg Capsule) 100 mg PO DAILY PRN PRN Reason: Constipation Enoxaparin Sodium (Enoxaparin Sodium 40 Mg/0.4 Ml Syringe) 40 mg SUBCUT Q24H [facility] Last Admin: 05/25/24 21:04 Dose: 40 mg Documented By: ARGENTINA Gabapentin (Gabapentin 400 Mg Capsule) 400 mg PO TID [facility] Last Admin: 05/26/24 08:34 Dose: 400 mg Documented By: MONIQUE Glucose (Glucose Gel 15 Gm Gel..Gram.) 15 gm PO Q15M PRN; Protocol PRN Reason: per Hypoglycemia Standing Ord. Hydroxyzine HCl (Hydroxyzine Hcl 25 Mg Tablet) 25 mg PO BID PRN PRN Reason: Itching Insulin Human Lispro (Insulin Lispro 100 Unit/Ml 3 Ml Vial) 0 unit SUBCUT QIDACHS [facility]; Protocol Last Admin: 05/26/24 08:29 Dose: Not Given Documented By: MONIQUE Non-Admin Reason: No Insulin Coverage Levothyroxine Sodium (Levothyroxine Sodium 125 Mcg Tablet) 125 mcg PO DAILY@629 [facility] Last Admin: 05/26/24 06:20 Dose: 125 mcg Documented By: ARGENTINA Loratadine (Loratadine 10 Mg Tablet) 10 mg PO DAILY PRN PRN Reason: Allergy Symptoms Lorazepam (Lorazepam 0.5 Mg Tablet) 0.5 mg PO BID PRN PRN Reason: Anxiety Magnesium Hydroxide (Milk Of Magnesia 30 Ml Oral.Susp) 30 ml PO DAILY PRN PRN Reason: Constipation Magnesium Oxide (Magnesium Oxide 400 Mg Tablet) 400 mg PO DAILY [facility] Last Admin: 05/26/24 08:34 Dose: 400 mg Documented By: MONIQUE Melatonin (Melatonin 3 Mg Tablet) 6 mg PO BEDTIME PRN PRN Reason: Insomnia Omeprazole (Omeprazole 40 Mg Capsule.Dr) 40 mg PO DAILY@06 [facility] Last Admin: 05/26/24 06:20 Dose: 40 mg Documented By: ARGENTINA Ondansetron HCl (Ondansetron Hcl 4 Mg/2 Ml Vial) 4 mg IVPUSH Q8H PRN PRN Reason: Nausea and Vomiting Pyridoxine HCl (Pyridoxine Hcl (Vitamin B6) 50 Mg Tablet) 100 mg PO DAILY [facility] Last Admin: 05/26/24 08:34 Dose: 100 mg Documented By: MONIQUE Sodium Chloride (0.9 % Sodium Chloride Flush 3 Ml Syringe) 3 ml IVFLUSH QSHIFT [facility] Last Admin: 05/26/24 08:29 Dose: Not Given Documented By: MONIQUE Non-Admin Reason: No Access Tramadol HCl (Tramadol Hcl 50 Mg Tablet) 25 mg PO Q6H PRN PRN Reason: Pain, Moderate(Pain Scale 4-6) Last Admin: 05/26/24 08:34 Dose: 25 mg Documented By: MONIQUE Labs 05/26/24 05:37 05/26/24 05:37 Labs: Laboratory Results - last 24 hr 05/25/24 05/25/24 05/25/24 11:08 16:03 20:10 MCV MCH MCHC RDW Plt Count MPV Absolute Nucleated RBC Nucleated RBC % (auto) Anion Gap Estim Creat Clear Calc Estimated GFR POC Glucose 157 H 137 H 178 H Random Glucose Calcium 05/26/24 05/26/24 05:37 08:07 MCV 95.1 MCH 32.1 MCHC 33.8 RDW 12.3 Plt Count 400 MPV 8.6 L Absolute Nucleated RBC 0.000 Nucleated RBC % (auto) 0.0 Anion Gap 12 Estim Creat Clear Calc 61.2 Estimated GFR > 60 POC Glucose 133 H Random Glucose 134 H Calcium 8.7 Procedures Date of Service Date of Service: 05/26/24 Progress Note: A&P Assessment and plan (1) Acute cholecystitis: Status: Acute Assessment and Plan: Status post cholecystectomy, with purulent cholecystitis Looks well Abdomen is soft and benign YUNG drain serosanguineous She is being arranged to go to rehab If she is still here tomorrow, we may pull the YUNG drain out Oral antibiotics Time Spent With Patient Time: Total time managing care of this patient today ____ minutes. Quality Stroke Does the patient have a stroke diagnosis?: No VTE Prior VTE?: No VTE Risk Level:: Medical - moderate - high VTE Device Contraindication: N/A - Device Ordered VTE Drug Contraindication: N/A - Med Ordered
[2024-05-26] MEDS: Acetaminophen 325 MG TABLET 650 MG PO ×2 (10:33→17:47)
[2024-05-26 11:31] LABS: Glucose, Whole Blood 150 mg/dL (60-115)
[2024-05-26] MEDS: Morphine Sulfate Immed Release 15 MG TABLET PO ×2 (11:42→17:47)
--- NOTE | 2024-05-26 13:27 | P.PNIM_ITS ---
Subjective Subjective Date of Service: 05/26/24 Interval History: Complaining of abdominal pain, lost IV access Tolerating diet denies nausea, no vomiting, no headache, no dizziness, no shortness of breath no chest pain, no acute issues overnight. Review of Systems All other system reviewed and are negative Physical Exam 2 Vital Signs: Vital Signs: Last Vital Signs Temp 97.9 F 05/26/24 08:00 Pulse 68 05/26/24 08:00 Resp 16 05/26/24 08:00 BP 127/60 05/26/24 08:00 Pulse Ox 96 05/26/24 08:00 O2 Del Method Room Air 05/26/24 08:00 O2 Flow Rate 4 05/24/24 13:19 BMI result Body Mass Index 29.3 Const: Other: General resting comfortably in no acute distress. Anicteric sclera Neck no JVD. CVS regular rate rhythm, Respiratory lungs clear to auscultation, no respiratory distress, no wheeze, no rhonchi. Gastrointestinal abdomen soft, right upper quadrant dressing in place, YUNG drain with serosanguineous drainage , bowel sounds audible Extremities no edema. Neuro non focal Skin no rash Appropriate affect Objective Data Active Medications Acetaminophen (Acetaminophen 325 Mg Tablet) 650 mg PO Q6H PRN PRN Reason: Pain, Mild 1-3,fever,headache Last Admin: 05/26/24 10:33 Dose: 650 mg Documented By: MONIQUE Amoxicillin/Clavulanate Potassium (Amoxicillin/Potassium Clav 875 Mg Tablet) 875 mg PO Q12H [facility] Last Admin: 05/26/24 08:34 Dose: 875 mg Documented By: MONIQUE Aspirin (Aspirin Enteric Coated 81 Mg Tablet.) 81 mg PO BEDTIME [facility] Last Admin: 05/25/24 21:04 Dose: 81 mg Documented By: ARGENTINA Atorvastatin Calcium (Atorvastatin Calcium 20 Mg Tablet) 20 mg PO DAILY [facility] Last Admin: 05/26/24 08:34 Dose: 20 mg Documented By: MONIQUE Calcium Carbonate (Calcium Carbonate 750 Mg Tab.Chew) 750 mg PO Q4H PRN PRN Reason: Heartburn Dextrose (Dextrose 50 % 25 Gm/50 Ml Syringe) 25 gm IVPUSH Q15M PRN; Protocol PRN Reason: per Hypoglycemia Standing Ord. Docusate Sodium (Docusate Sodium 100 Mg Capsule) 100 mg PO DAILY PRN PRN Reason: Constipation Enoxaparin Sodium (Enoxaparin Sodium 40 Mg/0.4 Ml Syringe) 40 mg SUBCUT Q24H [facility] Last Admin: 05/25/24 21:04 Dose: 40 mg Documented By: ARGENTINA Gabapentin (Gabapentin 400 Mg Capsule) 400 mg PO TID [facility] Last Admin: 05/26/24 08:34 Dose: 400 mg Documented By: MONIQUE Glucose (Glucose Gel 15 Gm Gel..Gram.) 15 gm PO Q15M PRN; Protocol PRN Reason: per Hypoglycemia Standing Ord. Hydroxyzine HCl (Hydroxyzine Hcl 25 Mg Tablet) 25 mg PO BID PRN PRN Reason: Itching Insulin Human Lispro (Insulin Lispro 100 Unit/Ml 3 Ml Vial) 0 unit SUBCUT QIDACHS [facility]; Protocol Last Admin: 05/26/24 11:35 Dose: Not Given Documented By: MONIQUE Non-Admin Reason: No Insulin Coverage Levothyroxine Sodium (Levothyroxine Sodium 125 Mcg Tablet) 125 mcg PO DAILY@06 [facility] Last Admin: 05/26/24 06:20 Dose: 125 mcg Documented By: ARGENTINA Loratadine (Loratadine 10 Mg Tablet) 10 mg PO DAILY PRN PRN Reason: Allergy Symptoms Lorazepam (Lorazepam 0.5 Mg Tablet) 0.5 mg PO BID PRN PRN Reason: Anxiety Magnesium Hydroxide (Milk Of Magnesia 30 Ml Oral.Susp) 30 ml PO DAILY PRN PRN Reason: Constipation Magnesium Oxide (Magnesium Oxide 400 Mg Tablet) 400 mg PO DAILY [facility] Last Admin: 05/26/24 08:34 Dose: 400 mg Documented By: MONIQUE Melatonin (Melatonin 3 Mg Tablet) 6 mg PO BEDTIME PRN PRN Reason: Insomnia Morphine Sulfate (Morphine Sulfate Immed Release 15 Mg Tablet) 15 mg PO Q6H PRN PRN Reason: Pain, Severe (Pain Scale 7-10) Last Admin: 05/26/24 11:42 Dose: 15 mg Documented By: MONIQUE Omeprazole (Omeprazole 40 Mg Capsule.) 40 mg PO DAILY@0630 [facility] Last Admin: 05/26/24 06:20 Dose: 40 mg Documented By: ARGENTINA Ondansetron HCl (Ondansetron Hcl 4 Mg/2 Ml Vial) 4 mg IVPUSH Q8H PRN PRN Reason: Nausea and Vomiting Pyridoxine HCl (Pyridoxine Hcl (Vitamin B6) 50 Mg Tablet) 100 mg PO DAILY [facility] Last Admin: 05/26/24 08:34 Dose: 100 mg Documented By: MONIQUE Sodium Chloride (0.9 % Sodium Chloride Flush 3 Ml Syringe) 3 ml IVFLUSH QSHIFT [facility] Last Admin: 05/26/24 08:29 Dose: Not Given Documented By: MONIQUE Non-Admin Reason: No Access Tramadol HCl (Tramadol Hcl 50 Mg Tablet) 25 mg PO Q6H PRN PRN Reason: Pain, Moderate(Pain Scale 4-6) Last Admin: 05/26/24 08:34 Dose: 25 mg Documented By: MONIQUE Labs 05/26/24 05:37 05/26/24 05:37 Labs: Laboratory Results - last 24 hr 05/25/24 05/25/24 05/26/24 16:03 20:10 05:37 MCV 95.1 MCH 32.1 MCHC 33.8 RDW 12.3 Plt Count 400 MPV 8.6 L Absolute Nucleated RBC 0.000 Nucleated RBC % (auto) 0.0 Anion Gap 12 Estim Creat Clear Calc 61.2 Estimated GFR > 60 POC Glucose 137 H 178 H Random Glucose 134 H Calcium 8.7 05/26/24 05/26/24 08:07 11:20 MCV MCH MCHC RDW Plt Count MPV Absolute Nucleated RBC Nucleated RBC % (auto) Anion Gap Estim Creat Clear Calc Estimated GFR POC Glucose 133 H 150 H Random Glucose Calcium Assessment and Plan (1) Acute cholecystitis: Status: Acute Plan 74-year-old female with a past medical history of HTN, HLD, hypothyroidism, GERD, insulin-dependent type 2 diabetes, fibromyalgia, depression, and OCD presenting to the ED with three days of nausea, vomiting, and abdominal discomfort and found to have acute cholecystitis Acute cholecystitis Status post cholecystectomy postoperative day 2 WBC trending down on iv Zosyn started 05/23 will transition to by mouth Augmentin 875 mg b.i.d. MS IR as needed for pain Zofran prn for nausea and vomiting Add Senokot and continue stool softener Acute anemia, no acute blood loss, likely due to surgery and dilutional Check stool guaiac, add iron supplement, follow CBC. Insulin dependent type 2 diabetes mellitus Blood sugars 130s,on Sliding-scale insulin On 46 units Lantus at home, will hold basal insulin, monitor point of care q.i.d. Fibromyalgia Continue gabapentin Hypothyroidism Continue levothyroxine Mood disorder Continue home meds HLD Continue statin, Full Code DVT Prophylaxis: Lovenox Disposition family requesting for short-term rehab PT eval ordered Patient will require continued inpatient hospitalization for antibiotics, pain management status post cholecystectomy with infected gallbladder and safe disposition. Quality Stroke Does the patient have a stroke diagnosis?: No VTE Prior VTE?: No VTE Risk Level:: Medical - moderate - high VTE Device Contraindication: N/A - Device Ordered VTE Drug Contraindication: N/A - Med Ordered
[2024-05-26] MEDS: Docusate Sodium 100 MG CAPSULE PO (13:46)
[2024-05-26 15:19] VITALS: BP 134/62; PULSE 69; RESP 18; TEMP 36.2; O2SAT 96
[2024-05-26 16:16] LABS: Glucose, Whole Blood 164 mg/dL (60-115)
[2024-05-26] MEDS: Insulin Lispro 100 UNIT/ML 3 ML VIAL SUBCUT ×2 (16:44→21:41)
[2024-05-26 20:00] VITALS: BP 135/61; PULSE 72; RESP 18; TEMP 37.2; O2SAT 92
[2024-05-26] MEDS: Aspirin Enteric Coated 81 MG TABLET.DR PO (20:20)
[2024-05-26] MEDS: Enoxaparin Sodium 40 MG/0.4 ML SYRINGE SUBCUT (20:21)
[2024-05-26] MEDS: Sennosides 8.6 MG TABLET 17.2 MG PO (20:21)
[2024-05-26] MEDS: 0.9 % Sodium Chloride Flush 3 ML SYRINGE IVFLUSH (20:22)
[2024-05-26 21:01] LABS: Glucose, Whole Blood 194 mg/dL (60-115)
[2024-05-27] MEDS: traMADoL HCL 50 MG TABLET 25 MG PO (01:34)
[2024-05-27] MEDS: Acetaminophen 325 MG TABLET 650 MG PO ×2 (01:38→12:50)
[2024-05-27 02:51] VITALS: BP 122/66; PULSE 76; RESP 17; TEMP 36.9; O2SAT 93
[2024-05-27] MEDS: Morphine Sulfate Immed Release 15 MG TABLET PO (05:59)
[2024-05-27] MEDS: Omeprazole 40 MG CAPSULE.DR PO (06:00)
[2024-05-27] MEDS: Levothyroxine Sodium 125 MCG TABLET PO (06:00)
[2024-05-27 07:25] VITALS: BP 139/63; PULSE 72; RESP 18; TEMP 36.4; O2SAT 94
--- NOTE | 2024-05-27 07:44 | PM.PNGS ---
Subjective Subjective Date of Service: 05/27/24 <Ramona Sanon PA-C - Last Filed: 05/27/24 07:48> 05/27/24 <Jair Smith MD - Last Filed: 05/27/24 08:01> Interval history: Overall feels better, denies any abd pain but c/o shoulder pain and stiffness which is her baseline. Has been OOB and ambulating to commode. Tolerating solid diet without nausea or vomiting. <Ramona Sanon PA-C - Last Filed: 05/27/24 07:48> Physical Exam Vital Signs: Vital Signs: Last Vital Signs Temp 97.6 F 05/27/24 07:25 Pulse 72 05/27/24 07:25 Resp 18 05/27/24 07:25 BP 139/63 05/27/24 07:25 Pulse Ox 94 05/27/24 07:25 O2 Del Method Room Air 05/27/24 07:25 O2 Flow Rate 4 05/24/24 13:19 BMI result Body Mass Index 29.3 <Ramona Sanon PA-C - Last Filed: 05/27/24 07:48> Const: General: comfortable, no acute distress and alert <Ramona Sanon PA-C - Last Filed: 05/27/24 07:48> Orientation/consciousness: patient oriented x3 <Ramona Sanon PA-C - Last Filed: 05/27/24 07:48> Resp: Effort & Inspection: normal respiratory effort <Ramona Sanon PA-C - Last Filed: 05/27/24 07:48> GI: Other: mildly distended incisions clean YUNG drain with scant serous appearing drainage <Ramona Sanon PA-C - Last Filed: 05/27/24 07:48> Palpation (GI): Soft to palpation, Tenderness to palpation present (GI) (mild incisional) and no guarding <PASCUAL Jeter Last Filed: 05/27/24 07:48> Skin: General skin exam: no rashes or lesions noted and no jaundice <PASCUAL Jeter Last Filed: 05/27/24 07:48> Neuro: General: patient oriented x3 and moves all extremities <Ramona Sanon PA-C - Last Filed: 05/27/24 07:48> Objective Data Active Medications Acetaminophen (Acetaminophen 325 Mg Tablet) 650 mg PO Q6H PRN PRN Reason: Pain, Mild 1-3,fever,headache Last Admin: 05/27/24 01:38 Dose: 650 mg Documented By: GENNY Amoxicillin/Clavulanate Potassium (Amoxicillin/Potassium Clav 875 Mg Tablet) 875 mg PO Q12H [facility] Last Admin: 05/26/24 20:20 Dose: 875 mg Documented By: MARCO ANTONIO Aspirin (Aspirin Enteric Coated 81 Mg Tablet.) 81 mg PO BEDTIME [facility] Last Admin: 05/26/24 20:20 Dose: 81 mg Documented By: MARCO ANTONIO Atorvastatin Calcium (Atorvastatin Calcium 20 Mg Tablet) 20 mg PO DAILY [facility] Last Admin: 05/26/24 08:34 Dose: 20 mg Documented By: LUCIA Calcium Carbonate (Calcium Carbonate 750 Mg Tab.Chew) 750 mg PO Q4H PRN PRN Reason: Heartburn Dextrose (Dextrose 50 % 25 Gm/50 Ml Syringe) 25 gm IVPUSH Q15M PRN; Protocol PRN Reason: per Hypoglycemia Standing Ord. Docusate Sodium (Docusate Sodium 100 Mg Capsule) 100 mg PO DAILY PRN PRN Reason: Constipation Enoxaparin Sodium (Enoxaparin Sodium 40 Mg/0.4 Ml Syringe) 40 mg SUBCUT Q24H [facility] Last Admin: 05/26/24 20:21 Dose: 40 mg Documented By: MARCO ANTONIO Ferrous Sulfate (Ferrous Sulfate 324 Mg Tablet.) 324 mg PO DAILY [facility] Gabapentin (Gabapentin 400 Mg Capsule) 400 mg PO TID [facility] Last Admin: 05/26/24 20:21 Dose: 400 mg Documented By: MARCO ANTONIO Glucose (Glucose Gel 15 Gm Gel..Gram.) 15 gm PO Q15M PRN; Protocol PRN Reason: per Hypoglycemia Standing Ord. Hydroxyzine HCl (Hydroxyzine Hcl 25 Mg Tablet) 25 mg PO BID PRN PRN Reason: Itching Insulin Human Lispro (Insulin Lispro 100 Unit/Ml 3 Ml Vial) 0 unit SUBCUT QIDACHS [facility]; Protocol Last Admin: 05/26/24 21:41 Dose: 2 unit Documented By: MARCO ANTONIO Levothyroxine Sodium (Levothyroxine Sodium 125 Mcg Tablet) 125 mcg PO DAILY@629 [facility] Last Admin: 05/27/24 06:00 Dose: 125 mcg Documented By: MARCO ANTONIO Loratadine (Loratadine 10 Mg Tablet) 10 mg PO DAILY PRN PRN Reason: Allergy Symptoms Lorazepam (Lorazepam 0.5 Mg Tablet) 0.5 mg PO BID PRN PRN Reason: Anxiety Magnesium Hydroxide (Milk Of Magnesia 30 Ml Oral.Susp) 30 ml PO DAILY PRN PRN Reason: Constipation Magnesium Oxide (Magnesium Oxide 400 Mg Tablet) 400 mg PO DAILY [facility] Last Admin: 05/26/24 08:34 Dose: 400 mg Documented By: MONIQUE Melatonin (Melatonin 3 Mg Tablet) 6 mg PO BEDTIME PRN PRN Reason: Insomnia Morphine Sulfate (Morphine Sulfate Immed Release 15 Mg Tablet) 15 mg PO Q6H PRN PRN Reason: Pain, Severe (Pain Scale 7-10) Last Admin: 05/27/24 05:59 Dose: 15 mg Documented By: MARCO ANTONIO Omeprazole (Omeprazole 40 Mg Capsule.Dr) 40 mg PO DAILY@629 [facility] Last Admin: 05/27/24 06:00 Dose: 40 mg Documented By: MARCO ANTONIO Ondansetron HCl (Ondansetron Odt 4 Mg Tab.Rapdis) 4 mg TRANSLINGU Q6H PRN PRN Reason: Nausea and Vomiting Pyridoxine HCl (Pyridoxine Hcl (Vitamin B6) 50 Mg Tablet) 100 mg PO DAILY [facility] Last Admin: 05/26/24 08:34 Dose: 100 mg Documented By: MONIQUE Senna (Sennosides 8.6 Mg Tablet) 17.2 mg PO BEDTIME [facility] Last Admin: 05/26/24 20:21 Dose: 17.2 mg Documented By: MARCO ANTONIO Sodium Chloride (0.9 % Sodium Chloride Flush 3 Ml Syringe) 3 ml IVFLUSH [facility] Last Admin: 05/26/24 20:22 Dose: 3 ml Documented By: MARCO ANTONIO Tramadol HCl (Tramadol Hcl 50 Mg Tablet) 25 mg PO Q6H PRN PRN Reason: Pain, Moderate(Pain Scale 4-6) Last Admin: 05/27/24 01:34 Dose: 25 mg Documented By: GENNY <Ramona Sanon PA-C - Last Filed: 05/27/24 07:48> Labs CBC & Chem 7: 05/26/24 05:37 05/26/24 05:37 <Ramona Sanon PA-C - Last Filed: 05/27/24 07:48> Labs: Laboratory Results - last 24 hr 05/26/24 05/26/24 05/26/24 08:07 11:20 16:13 POC Glucose 133 H 150 H 164 H 05/26/24 20:52 POC Glucose 194 H <Ramona Sanon PA-C - Last Filed: 05/27/24 07:48> Procedures Date of Service Date of Service: 05/27/24 <Ramona Sanon PA-C - Last Filed: 05/27/24 07:48> 05/27/24 <Jair Smith MD - Last Filed: 05/27/24 08:01> Progress Note: A&P Assessment and plan (1) Acute cholecystitis: Status: Acute <Ramona Sanon PA-C - Last Filed: 05/27/24 07:48> (2) S/P laparoscopic cholecystectomy: Status: Acute <Ramona Sanon PA-C - Last Filed: 05/27/24 07:48> Assessment and Plan: continues to do well good GI function looks well abd soft drain removed ok to dc to Rehab ffup in office in 2-3 weeks seen and examined independently <Jair Smith MD - Last Filed: 05/27/24 08:01> Assessment and Plan: POD #3 s/p lap cholecystectomy found to have purulent cholecystitis, cirrhosis. Overall doing well post op, abd benign with clean incisions and YUNG drain output nonbilious, serous appearing. It was therefore removed this morning. Rec bowel regimen for BMs. Patient stable for dc from surgical standpoint. Awaiting PT consult for possible dc to STR. Can f/u in office in 2 weeks. <PASCUAL Jeter Last Filed: 05/27/24 07:48> Time Spent With Patient Time: Total time managing care of this patient today ____ minutes. <Ramona Sanon PA-C - Last Filed: 05/27/24 07:48> Quality Stroke Does the patient have a stroke diagnosis?: No <Ramona Sanon PA-C - Last Filed: 05/27/24 07:48> VTE Prior VTE?: No <Ramona Sanon PA-C - Last Filed: 05/27/24 07:48> VTE Risk Level:: Medical - moderate - high <Ramona Sanon PA-C - Last Filed: 05/27/24 07:48> VTE Device Contraindication: N/A - Device Ordered <Ramona Sanon PA-C - Last Filed: 05/27/24 07:48> VTE Drug Contraindication: N/A - Med Ordered <Ramona Sanon PA-C - Last Filed: 05/27/24 07:48>
[2024-05-27 08:00] LABS: Glucose, Whole Blood 150 mg/dL (60-115)
[2024-05-27] MEDS: Atorvastatin Calcium 20 MG TABLET PO (08:13)
[2024-05-27] MEDS: Pyridoxine HCl (Vitamin B6) 50 MG TABLET 100 MG PO (08:13)
[2024-05-27] MEDS: Magnesium Oxide 400 MG TABLET PO (08:13)
[2024-05-27] MEDS: Gabapentin 400 MG CAPSULE PO (08:13)
[2024-05-27] MEDS: Ferrous Sulfate 324 MG TABLET.DR PO (08:13)
[2024-05-27] MEDS: Amoxicillin/Potassium Clav 875 MG TABLET PO (08:13)
[2024-05-27 09:02] LABS: Hematocrit 34.2 % (37.0-47.0); Mean Corpuscular HGB Conc 32.2 g/dl (31.0-35.0); Mean Corpuscular Hemoglobin 31.1 pg (27.0-33.0); Mean Corpuscular Volume 96.6 fL (80.0-98.0); Mean Platelet Volume 8.7 fL (9.4-12.3); Platelet Count 422 X10*3/uL (160-400); Red Blood Count 3.54 X10*6/uL (4.20-5.50); Red Cell Distribution Width 12.2 % (11.0-16.0); White Blood Count 11.2 X10*3/uL (4.8-10.8)
[2024-05-27] MEDS: Milk of Magnesia 30 ML ORAL.SUSP PO (09:03)
[2024-05-27] MEDS: Docusate Sodium 100 MG CAPSULE PO (09:03)
[2024-05-27 11:24] LABS: Glucose, Whole Blood 161 mg/dL (60-115)
[2024-05-27] MEDS: Insulin Lispro 100 UNIT/ML 3 ML VIAL SUBCUT (11:33)
--- NOTE | 2024-05-27 11:56 | PM.DS ---
DS: Providers Provider Date of Service: 05/27/24 Date of admission: 05/23/24 20:56 Date of discharge: 05/27/24 Primary care physician: Jaye Ortega MD Consults: 05/23/24 20:50 Consult to General Surgery [place]ine [place]ing [place] [facility] [place] [facility] Reason for consultation: Acute cholecystitis Has provider been notified: No DS: Diagnosis Discharge Diagnosis (1) Acute cholecystitis: Status: Acute (2) S/P laparoscopic cholecystectomy: Status: Acute DS: Summary Hospital Course Hospital Course: History of present illness: Date of Service: 05/23/24 Chief Complaint: Nausea and vomiting 74-year-old female with a past medical history of HTN, HLD, hypothyroidism, GERD, insulin-dependent type 2 diabetes, fibromyalgia, depression, and OCD presenting to the ED with three days of nausea, vomiting, and abdominal discomfort. The patient recently had her Latuda dose increased and has been experiencing nonspecific symptoms, including weakness and malaise. She was seen in the ED on 05/15 and discharged home, as well as evaluated at [facility] ED for similar symptoms a few days ago, but was again discharged. Over the past three days, she developed worsening nausea and vomiting, prompting her return to the ED. Additionally, she reports upper abdominal/RUQ discomfort, but no fever Workup: Abdominal ultrasound: Gallbladder sludge, stones, and borderline wall thickening, but no definitive sonographic evidence of acute cholecystitis. HIDA scan: Consistent with acute cholecystitis. WBC: 15K. Treatment: Started on Zosyn. Surgery declined admission. Hospital course: 74-year-old female with a past medical history of HTN, HLD, hypothyroidism, GERD, insulin-dependent type 2 diabetes, fibromyalgia, depression, and OCD presenting to the ED with three days of nausea, vomiting, and abdominal discomfort and found to have acute cholecystitis Acute cholecystitis, Status post cholecystectomy, postprocedure doing well tolerating diet, hemodynamically stable no fevers WBC trending down, initially treated with IV Zosyn now transitioned to Augmentin 875 mg b.i.d. Has good pain control recommend to use Ultram 25 mg as needed for pain recommend to follow low-fat diet and outpatient follow-up with General surgery in 2 weeks , postprocedure noted to have drop in hematocrit no acute blood loss was noted likely due to surgery and dilutional recommend iron supplement, repeat hematocrit is stable. Insulin dependent type 2 diabetes mellitus, Blood sugars 130s,on Sliding-scale insulin, On 46 units Lantus at home, dose reduced to 25 units and recommend to monitor blood sugar closely and adjust dose of Lantus as per blood sugar control. Fibromyalgia Continue gabapentin Hypothyroidism Continue levothyroxine Mood disorder Continue home meds HLD Continue statin, Time Attestation Discharge Coordination Time (in mins): 40 Quality: Safe Use of Opioids Does Pt have an Active Cancer Diagnosis on the Problem List?: No Quality: Stroke Does the patient have a stroke diagnosis?: No Physical Exam Vital Signs: Vital Signs: Last Vital Signs Temp 97.6 F 05/27/24 07:25 Pulse 72 05/27/24 07:25 Resp 18 05/27/24 07:25 BP 139/63 05/27/24 07:25 Pulse Ox 94 05/27/24 07:25 O2 Del Method Room Air 05/27/24 07:25 O2 Flow Rate 4 05/24/24 13:19 BMI result Body Mass Index 29.3 Const: Other: General resting comfortably in no acute distress. Anicteric sclera Neck no JVD. CVS regular rate rhythm, Respiratory lungs clear to auscultation, no respiratory distress, no wheeze, no rhonchi. Gastrointestinal abdomen soft, right upper quadrant dressing in place, bowel sounds audible Extremities no edema. Neuro non focal Skin no rash Appropriate affect DS: Data Data Completed and Pending Pending studies at discharge: Pending at discharge 05/24/24 12:29 Surgical [PTH] Routine Labs on day of discharge: Laboratory Results - last 24 hr 05/26/24 05/26/24 05/27/24 16:13 20:52 07:36 WBC RBC Hgb Hct MCV MCH MCHC RDW Plt Count MPV Absolute Nucleated RBC Nucleated RBC % (auto) POC Glucose 164 H 194 H 150 H 05/27/24 05/27/24 08:31 11:20 WBC 11.2 H RBC 3.54 L Hgb 11.0 L Hct 34.2 L MCV 96.6 MCH 31.1 MCHC 32.2 RDW 12.2 Plt Count 422 H MPV 8.7 L Absolute Nucleated RBC 0.000 Nucleated RBC % (auto) 0.0 POC Glucose 161 H Discharge Plan Discharge Anticipated Discharge Date/Time: 05/27/24 11:40 Patient Disposition: Home Health Service Discharge Diagnosis: Acute cholecystitis status post cholecystectomy Referrals: [facility] [Outside] - 1 Week Jaye Ortega MD [Primary Care Provider] - 1 Week Jair Smith MD [Physician] - 2 Weeks Discharge Medications: New amoxicillin-pot clavulanate 875-125 mg Tablet 1 tab PO Q12H Qty: 6 0RF acetaminophen 325 mg Tablet 650 mg PO Q6H PRN (Reason: Pain, Mild 1-3,Fever,Headache) Qty: 30 0RF tramadol 50 mg Tablet 25 mg PO Q6H PRN (Reason: Pain, Moderate(Pain Scale 4-6)) Qty: 30 0RF ferrous sulfate 324 mg (65 mg iron) Tablet,Delayed Release (Dr/Ec) 324 mg PO DAILY Qty: 30 0RF tramadol 25 mg tablet 25 mg PO Q6H PRN (Reason: pain (scale score 7-10)) Qty: 30 0RF Continued (DME) OneTouch Ultra Test Strip See Rx Instructions .Route Qty: 100 2RF Rx Instructions: check BS 2-3x/day gabapentin 400 mg capsule 400 mg PO TID 30 Days Qty: 90 1RF simvastatin 40 mg tablet 40 mg PO BEDTIME Qty: 90 0RF levothyroxine 125 mcg tablet 125 mcg PO DAILY@0630 Qty: 90 1RF magnesium oxide 400 mg (241.3 mg magnesium) tablet 400 mg PO DAILY Qty: 30 0RF diclofenac sodium 75 mg tablet,delayed release (DR/EC) 75 mg PO BID PRN (Reason: Pain) hydroxyzine pamoate 25 mg capsule 25 mg PO BID PRN (Reason: Itching) omeprazole 40 mg capsule,delayed release(DR/EC) 40 mg PO DAILY@0630 lorazepam 0.5 mg tablet 0.5 - 1 mg PO BID PRN (Reason: ANXIETY OR SLEEP) aspirin [Adult Aspirin Regimen] 81 mg tablet,delayed release (DR/EC) 81 mg PO BEDTIME biotin 1 mg capsule 1 mg PO DAILY omega [id number] oil [Fish Oil] 1,000 mg (120 mg-180 mg) capsule 1 cap PO DAILY PRN (Reason: supplemnt) levocetirizine [Xyzal] 5 mg tablet 5 mg PO DAILY PRN (Reason: Allergy Symptoms) (DME) OneTouch Ultra Test Strip See Rx Instructions Not Applicable TID Qty: 10 Rx Instructions: As directed docusate sodium [Colace] 100 mg capsule 100 mg PO DAILY PRN (Reason: Constipation) pyridoxine (vitamin B6) 100 mg tablet 100 mg PO DAILY 90 Days Qty: 90 3RF Changed insulin glargine [Basaglar KwikPen U-100 Insulin] 100 unit/mL (3 mL) insulin pen 25 unit subcut DAILY Qty: 15 0RF Discharge Orders: Discharge Order (Routine); Ordered 05/27/24 Ordered By: Iris Mullins Diet: Diabetic diet Activity on Discharge: As tolerated Stand Alone Forms: Patient Portal Discharge page Print Language: Turkish Activity Restrictions/Additional Instructions: If the incision area is tender, you may apply an ice pack for short intervals (No more than 20 minutes on, followed by at least 20 minutes off). Do not apply heat. Do not use creams, lotions, or topical antibiotics. These can cause infection or allergic reaction. Ok to shower. No tub bath. You have steri strips (small white cloth strips) covering your incision- these will fall off ~1 week. Follow up in office with Dr. Smith in 2 weeks. ([phone]) No heavy lifting (>10-20lbs) or strenuous activity. Call Your Doctor If: -Your temperature exceeds 101.5? F -You experience excessive pain or swelling -You have an unexpected reaction to medication -You have excessive bleeding -You experience continued vomiting/nausea -Your incision begins to separate -Your incision shows signs of infection such as increased redness, swelling, excessive pain, drainage (light blood or clear fluid is normal) or heat Care Plan Goals: Diabetes mellitus dose of Lantus reduced to 25 units home dose 46 units, increase dose of Lantus if noted to have elevated blood sugars Follow diabetic and low-fat diet For abdominal pain use Tylenol for mild pain and Ultram 25 mg 1 tablet as needed for [id number] pain Being discharged home with PT services Health Concerns: Resume all home medications as before Plan of Treatment: Outpatient follow-up with primary care physician call for appointment Outpatient follow-up with Dr. Smith in 2 weeks Assessment: As above
--- NOTE | 2024-05-27 12:22 | W.MHC.F2F ---
Service Date Service Date: 05/27/24 Encounter Date of encounter: 05/27/24 Reasons for Services Signs and symptoms assessed: Right upper quadrant pain/generalized weakness/she bilateral shoulder pain stiffness/diabetes mellitus/status post cholecystectomy Reason for long-term: wound care, diabetic teaching and medication management Reason for physical therapy: home safety and mobility Homebound: Leaving the home is medically contraindicated at this time without the asist of a device and/or another person due th the listed conditions above and below. Reason homebound: unsteady gait / fall risk and weakness related to hospital stay Homebound supporting statement: Generalized weakness post surgery Certification: Based on the above findings, I certify that this patient is confined to the home and needs intermittent long-term care, physical therapy and/or speech therapy, or continues to need occupational therapy. The patient is under my care, and I have initiated the establishment of the plan of care. The patient will be followed by a physician who will periodically review the plan of care. Time Spent With Patient Time: Total time managing care of this patient today ____ minutes.
--- NOTE | 2024-05-27 12:40 | MHC.CM.PN ---
IMM 05/27/24 Patient discharged today. [facility] referred at pts request. DC info sent to the agency. Patient has arranged for transportation home.
[2024-05-27 12:56] VITALS: BP 138/87; PULSE 75; RESP 16; TEMP 36.6; O2SAT 94
== END 2024-05-27 12:59 | disposition home health service (06) | DRG 419 ==
LOC: HO.ED 20:41 → HO.EDOVER 21:06 → HO.S3 05-24 13:35
PROVIDERS: Physician Assistant; Surgery; Admitting Provider Internal Medicine; Emergency Provider Emergency Medicine; PCP Hospitalist; Visit Provider Hospitalist
PROC: 0FT44ZZ Resection of Gallbladder, Percutaneous Endoscopic Approach (ICD-10-PCS; CPT 47562; principal; 2024-05-24 11:30)
DX: K81.0 Acute cholecystitis (principal); E11.40 Type 2 diabetes mellitus with diabetic neuropathy, unspecified; D64.89 Other specified anemias; E03.9 Hypothyroidism, unspecified; K74.60 Unspecified cirrhosis of liver; M79.7 Fibromyalgia; F32.A Depression, unspecified; E78.5 Hyperlipidemia, unspecified; Z20.822 Contact with and (suspected) exposure to COVID-19; Z79.4 Long term (current) use of insulin; Z79.82 Long term (current) use of aspirin; Z79.890 Hormone replacement therapy; Z79.899 Other long term (current) drug therapy
CPT/HCPCS: 0241U; 36415; 76705; 78226; 80048; 80053; 80076; 81003; 82947; 83690; 83735; 85027; 88304; 93005; 97162; 99285; A9537; J0737; J1100; J1650; J2270; J2405; J2543; J2704; J2795; J3010; J7120

== ENCOUNTER → 2024-05-23 06:29 | Outpatient (BNV) | payer MEDICARE, OTHER, SELFPAY | PROVIDERS: Emergency Provider Emergency Medicine; PCP Hospitalist; Visit Provider Internal Medicine | DX: R94.31 Abnormal electrocardiogram [ECG] [EKG] (principal); R11.2 Nausea with vomiting, unspecified | CPT/HCPCS: 93010 ==

== ENCOUNTER → 2024-05-23 08:21 | Outpatient (BNV) | payer MEDICARE, OTHER, SELFPAY | PROVIDERS: Emergency Provider Emergency Medicine; PCP Hospitalist; Visit Provider Radiology Diagnostic Radiology | DX: K81.0 Acute cholecystitis (principal); R10.11 Right upper quadrant pain; N28.1 Cyst of kidney, acquired | CPT/HCPCS: 76705 ==

== ENCOUNTER → 2024-05-23 20:56 | Outpatient (BNV) | payer MEDICARE, OTHER, SELFPAY | PROVIDERS: Admitting Provider Internal Medicine; Emergency Provider Emergency Medicine; PCP Hospitalist; Visit Provider Hospitalist | DX: K81.0 Acute cholecystitis (principal) | CPT/HCPCS: 99233; 99239; G0180 ==

== ENCOUNTER → 2024-05-23 20:56 | Outpatient (BNV) | payer MEDICARE, OTHER, SELFPAY | PROVIDERS: Admitting Provider Internal Medicine; Emergency Provider Emergency Medicine; PCP Hospitalist; Visit Provider Surgery | DX: K81.0 Acute cholecystitis (principal) | CPT/HCPCS: 47562; 99024; 99222; 99499 ==

== ENCOUNTER 2024-06-01 09:26 | Inpatient (IN) | payer MEDICARE, OTHER, SELFPAY ==
--- NOTE | ~2024-06-01 | CT_ITS ---
CLINICAL HISTORY: nausea vomiting intractable s p lap vic CT abdomen and pelvis with contrast Comparison: CT/HI/SR - CT ABDOMEN PELVIS W IV CON - 03/01/2023 11:32 AM EST Findings: No consolidation or effusion. Mild stranding in the gallbladder fossa with no fluid collection. There is abnormal thickening of the gastric pylorus and proximal duodenum. Surrounding stranding noted. No free air or drainable fluid collection. No bowel obstruction. There is diverticulosis without evidence of diverticulitis The liver, spleen, adrenal glands and pancreas demonstrate no acute process. Multiple renal cysts are present. The bladder is decompressed. The uterus demonstrates chronic change. No adnexal mass. No acute osseous abnormality. Mild to moderate diffuse degenerative change involving the spine. Mild atherosclerotic disease. Impression: There is new abnormal somewhat prominent thickening along the gastric pylorus and proximal duodenum. Distal gastritis/duodenitis suspected. No perforation or free air identified. No fluid collection within the gallbladder fossa to suggest leak. This document has been electronically signed by: Kp Hyatt MD on 06/01/2024 16:50:12
--- NOTE | ~2024-06-01 | US_ITS ---
CLINICAL HISTORY: abd pain, recent CCY, ? retained stone US abdomen limited Comparison: None Findings: The common duct is 3 mm in diameter. No choledocholithiasis identified The gallbladder is surgically absent. No ascites. IMPRESSION: The common bile duct measures 3 mm and demonstrates no definite calculi. This document has been electronically signed by: Kp Hyatt MD on 06/02/2024 14:03:33
[2024-06-01 10:08] VITALS: BP 156/60; PULSE 73; RESP 18; TEMP 36.4; O2SAT 99; BMI 29.3
[2024-06-01] MEDS: Ondansetron ODT 4 MG TAB.RAPDIS TRANSLINGU (10:16)
[2024-06-01 10:38] LABS: MANUAL DIFF FLAG NO
[2024-06-01 10:41] LABS: Basophils Percent Auto 0.3 % (0-2); Eosinophils Percent Auto 0.2 % (0-4); Hematocrit 37.7 % (37.0-47.0); Hemoglobin 12.8 g/dl (12.0-16.0); Imm Gran Abs Auto 0.07 X10*3/uL (0.00-0.03); Imm Gran Pct Auto 0.6 % (0.0-0.4); Lymphocytes Absolute Auto 0.9 X10*3/uL (1.2-4.9); Lymphocytes Percent Auto 7.7 % (20-40); Mean Corpuscular Hemoglobin 31.6 pg (27.0-33.0); Mean Corpuscular Volume 93.1 fL (80.0-98.0); Mean Platelet Volume 8.1 fL (9.4-12.3); Monocytes Absolute Auto 0.7 X10*3/uL (0.1-1.2); Monocytes Percent Auto 6.5 % (2-11); Neutrophils Absolute Auto 9.7 x10*3/uL (2.0-8.3); Neutrophils Percent Auto 84.7 % (45-73); Platelet Count 574 X10*3/uL (160-400); Red Blood Count 4.05 X10*6/uL (4.20-5.50); White Blood Count 11.5 X10*3/uL (4.8-10.8)
[2024-06-01 10:57] LABS: Alanine Aminotransferase 41 U/L (0-31); Albumin Level 3.6 g/dL (3.5-5.0); Alkaline Phosphatase 105 U/L (39-117); Anion Gap 18 (12-20); Aspartate Amino Transferase 44 U/L (5-31); Bilirubin Total 0.5 mg/dL (0.0-1.0); Blood Urea Nitrogen 10 mg/dL (9-16); Calcium 9.3 mg/dL (8.4-10.2); Carbon Dioxide 25 mmol/L (22-29); Chloride 101 mmol/L (96-108); Creatinine Clr Calc Pharmacy 68.7; Estimated Glomerular Filt Rate > 60; Glucose Random 146 mg/dL (60-115); Potassium 3.9 mmol/L (3.3-5.1); Sodium 140 mmol/L (135-145); Total Protein 7.5 g/dL (6.5-8.0)
[2024-06-01 11:54] LABS: Influenza A PCR NEGATIVE (Negative); Influenza B PCR NEGATIVE (Negative); Resp Syncy Virus RNA Qual PCR NEGATIVE (Negative); SARS COV2 PCR INHOUSE NEGATIVE (Negative)
[2024-06-01] MEDS: Metoclopramide HCl 10 MG TABLET PO (12:52)
--- NOTE | 2024-06-01 13:54 | ED_ITS ---
HPI - Nausea/Vomiting/Diarrhea General Chief complaint: Nausea/Vomiting/Diarrhea Stated complaint: nausea dehydration Time Seen by Provider: 06/01/24 13:45 Source: patient, family and old records reviewed Mode of arrival: wheelchair Limitations: no limitations History of Present Illness ED Provider: YANELI ARTIS Narrative: 74 yo female with PMH of schizoaffective disorder, HTN, HLD, depression, OCD, fibromyalgia, neuropathy and DM who was recently admitted here 05/23 - 05/27 for n/v and + HIDA scan s/p laparascopic cholecystectomy on 05/24 here she presents again today with c/o note feeling well since yesterday. She states she was great after discharge and now has felt worse with the same symptoms such as n/v and just feeling tired and weak. She has not had fevers, she is able to pas gas, she has no dysuria, CP/SOB, diarrhea. She does feel like she has less BM since surgery MD elicited complaint: nausea and vomiting Pertinent past history: other Onset (ago): day(s) (2) Description of vomiting: watery and bilious Associated nausea: Yes Associated abdominal pain: No Severity: moderate Exacerbating factors: eating Relieving factors: none Context: recent antibiotic use and recent surgery/procedure Associated symptoms: loss of appetite, malaise and nausea/vomiting Related Data Home Medications ?Medication ?Instructions ?Recorded ?Confirmed aspirin 81 mg tablet,delayed 81 mg PO BEDTIME 01/01/21 05/23/24 release (Adult Aspirin Regimen) lorazepam 0.5 mg tablet 0.5 - 1 mg PO BID PRN ANXIETY OR 01/01/21 05/23/24 SLEEP biotin 1 mg capsule 1 mg PO DAILY 05/17/21 05/23/24 omega 1-isw-wme-fish oil 1,000 mg 1 cap PO DAILY PRN supplemnt 05/17/21 05/23/24 (120 mg-180 mg) capsule (Fish Oil) [facility] 05/27/21 10/30/23 Ultra Test strips) levocetirizine 5 mg tablet (Xyzal) 5 mg PO DAILY PRN Allergy Symptoms 09/09/21 05/23/24 docusate sodium 100 mg capsule 100 mg PO DAILY PRN Constipation 12/28/23 05/23/24 (Colace) diclofenac sodium 75 mg 75 mg PO BID PRN Pain 05/23/24 05/23/24 tablet,delayed release hydroxyzine pamoate 25 mg capsule 25 mg PO BID PRN Itching 05/23/24 05/23/24 omeprazole 40 mg capsule,delayed 40 mg PO DAILY@0630 05/23/24 05/23/24 release Previous Rx's ?Medication ?Instructions ?Recorded blood sugar diagnostic (OneTouch #100 ea 07/14/22 Ultra Test strips) magnesium oxide 400 mg (241.3 mg 400 mg PO DAILY #30 tabs 07/24/22 magnesium) tablet gabapentin 400 mg capsule 400 mg PO TID 30 days #90 caps 12/30/22 simvastatin 40 mg tablet 40 mg PO BEDTIME #90 tabs 04/26/23 levothyroxine 125 mcg tablet 125 mcg PO DAILY@629 #90 tabs 05/18/23 pyridoxine (vitamin B6) 100 mg 100 mg PO DAILY 90 days #90 tabs 12/28/23 tablet acetaminophen 325 mg tablet 650 mg (2 x 325 mg) PO Q6H PRN 05/27/24 Pain, Mild 1-3,Fever,Headache #30 tabs amoxicillin 875 mg-potassium 1 tab PO Q12H #6 tabs 05/27/24 clavulanate 125 mg tablet ferrous sulfate 324 mg (65 mg 324 mg PO DAILY #30 tabs 05/27/24 iron) tablet,delayed release insulin glargine 100 unit/mL (3 25 unit (0.25 mL) subcut DAILY #15 05/27/24 mL) subcutaneous pen (Basaglar mL KwikPen U-100 Insulin) tramadol 25 mg tablet 25 mg PO Q6H PRN pain (scale score 05/27/24 7-10) #30 tabs tramadol 50 mg tablet 25 mg (1/2 x 50 mg) PO Q6H PRN 05/27/24 Pain, Moderate(Pain Scale 4-6) #30 tabs Allergies Allergy/AdvReac Type Severity Reaction Status Date / Time codeine [Codeine] Allergy Unknown NAUSEA AND Verified 06/01/24 10:11 VOMITING, nausea pregabalin Allergy Unknown Confusion Verified 06/01/24 10:11 rosuvastatin [Crestor] Allergy Unknown joint pain Verified 06/01/24 10:11 NSAIDS (Non-Steroidal Allergy Swelling Verified 06/01/24 10:11 Anti-Inflamma oxycodone [From OxyContin] Allergy Itching Verified 06/01/24 10:11 [place] Insulin Allergy Unknown severe Uncoded 05/23/24 05:42 itching tapes, adhesives, tegaderm, Allergy Unknown rash Uncoded 05/23/24 05:42 st wellbutrin Allergy Unknown rash Uncoded 05/23/24 05:42 lexapro AdvReac Severe lethargic Uncoded 05/23/24 05:42 Review of Systems 2 Review of Systems: Constitutional : No Weight loss, No Fever, No Chills ENT/Mouth : No sore throat, No Rhinorrhea Eyes: No Swelling, No Redness Cardiovascular : No Chest Pain, No SOB, NoEdema Respiratory : No Cough, No Sputum, No Wheezing Gastrointestinal : Positive Nausea, Positive Vomiting, no Diarrhea, no abdominal Pain, No Hematochezia, No Melena Genitourinary : No Dysuria, No Urinary Frequency, No Hematuria, No Urgency Musculoskeletal : No joint pain, No Myalgias, No Joint Swelling Skin : No Skin Lesions, No rash Neuro : No Weakness, No Numbness, No Dizziness, No Headache All other systems reviewed and are negative. Gastrointestinal: Gastrointestinal: Reports nausea PMFSH Past Medical History Attestation statement: The following information was validated with the patient. Source: old records reviewed Medical History Bilateral cataracts Schizoaffective disorder Confusion Skin rash Vitamin D deficiency HTN (hypertension) HLD (hyperlipidemia) Cellulitis of leg, left Skin excoriation Urinary urgency Encounter to establish care Arthralgia of shoulder region, left Cervical spondylitis with radiculitis Myofascial pain on left side Depression OCD (obsessive compulsive disorder) DJD (degenerative joint disease) SI (sacroiliac) joint dysfunction Fibromyalgia GERD (gastroesophageal reflux disease) Neuropathy Diabetes Surgical History H/O mastectomy Hx of appendectomy H/O exploratory laparotomy History of surgery Family History Family History Father No problems noted. Mother No problems noted. Social History Social History Household Members: Unknown / Unable to assess Household Members Other:: 1 Housing: House Do you presently have visiting nurse or other home services: No Alcohol intake: former Comment: SI 1:1 Patient Tobacco Use Status: Never used Tobacco Tobacco use type: Cigarette e-Cigarette/Vaping Use: Never Used Second Hand Smoke Exposure: No Advance Directives: Yes Advance Directives Information Provided: Yes Advance Directives on File: No service: No Current occupational status: retired Cognitive needs: Yes (cane) Hearing needs: Yes (hearing aide) Vision needs: Yes (glasses) Physical Exam 2 Vital Signs: Vital Signs: Last Vital Signs Temp 97.6 F 06/01/24 10:08 Pulse 73 06/01/24 10:08 Resp 18 06/01/24 10:08 BP 156/60 H 06/01/24 10:08 Pulse Ox 99 06/01/24 10:08 O2 Del Method Room Air 06/01/24 10:08 BMI result Body Mass Index 29.3 Appearance: Alert. Oriented X3. No acute distress. Eyes: Pupils equal, round and reactive to light. ENT: Pharynx normal. Neck: Normal inspection. Neck supple. CVS: Normal heart rate and rhythm. Pulses normal. Respiratory: No respiratory distress. Breath sounds normal. Abdomen: Soft and nontender. incisions are clean dry/intact Skin: Skin warm and dry. Normal skin color. Normal skin turgor. Extremities: No lower extremity edema. No calf ttp Neuro: Oriented X 3. No motor deficit. No sensory deficit. CN2-12 intact Medications Administered Discontinued Medications Generic Name Dose Route Start Last Admin Trade Name Pasqualeq PRN Reason Stop Dose Admin Lactated Ringer's 1,000 mls @ 999 mls/hr 06/01/24 14:08 06/01/24 15:51 Lr IV 06/01/24 15:08 999 mls/hr .Q1H1M ONE Administration Iohexol 100 ml 06/01/24 16:08 06/01/24 16:08 Iohexol 350 Mg/Ml 100 Ml Infus..Btl IV 06/01/24 16:09 85 ml ONCE ONE Administration Metoclopramide HCl 10 mg 06/01/24 12:18 06/01/24 12:52 Metoclopramide Hcl 10 Mg Tablet PO 06/01/24 12:19 10 mg ONCE ONE Administration Ondansetron HCl 4 mg 06/01/24 10:13 06/01/24 10:16 Ondansetron Hcl 4 Mg/2 Ml Vial IVPUSH 06/01/24 10:14 Not Given ONCE ONE Ondansetron HCl 4 mg 06/01/24 10:15 06/01/24 10:16 Ondansetron Odt 4 Mg Tab.Rapdis TRANSLINGU 06/01/24 10:16 4 mg ONCE STA Administration Prochlorperazine Edisylate 10 mg 06/01/24 14:08 06/01/24 14:22 Prochlorperazine Edisylate 10 Mg/2 Ml Vial IVPUSH 06/01/24 14:09 10 mg ONCE ONE Administration Prochlorperazine Edisylate 10 mg 06/01/24 16:22 06/01/24 16:30 Prochlorperazine Edisylate 10 Mg/2 Ml Vial IVPUSH 06/01/24 16:23 10 mg ONCE ONE Administration Medical Decision Making Medical Decision Making MDM Narrative: 74 yo female with PMH of schizoaffective disorder, HTN, HLD, depression, OCD, fibromyalgia, neuropathy and DM here with c/o intractable n/v x 2 days she states no change in diet and that it started out of nowhere. She has tried oral nausea medications without relief. She has no diarrhea feels a little backed up but is passing flatus. No CP/SOB, no urinary symptoms. IVF, nausea medications, CT scan for any acute pathology post surgery Differential Diagnosis Differential Diagnoses: The differential diagnosis associated with the presentation includes intractable n/v, lyte abnormality, biloma, retained stone Admission/Observation Consideration of admission/observation: Escalation of care including admission/observation considered plan to admit after zofran, compazine, reglan still c/o nausea and cannot tolerate PO I started on IVF and one dose of IV protonix Consult Healthcare Provider Management of the patient was discussed with: Hospitalist (will admit) Lab Data [facility] Lab Attestation statement: I reviewed the patient's lab results. 06/01/24 10:32 06/01/24 10:32 Labs: Lab Results 06/01/24 Range/Units 10:32 WBC 11.5 H (4.8-10.8) X10*3/uL RBC 4.05 L (4.20-5.50) X10*6/uL Hgb 12.8 (12.0-16.0) g/dl Hct 37.7 (37.0-47.0) % MCV 93.1 (80.0-98.0) fL MCH 31.6 (27.0-33.0) pg MCHC 34.0 (31.0-35.0) g/dl RDW 12.0 (11.0-16.0) % Plt Count 574 H D (160-400) X10*3/uL MPV 8.1 L (9.4-12.3) fL Immature Gran % (Auto) 0.6 H (0.0-0.4) % Neut % (Auto) 84.7 H (45-73) % Lymph % (Auto) 7.7 L (20-40) % Scurry % (Auto) 6.5 (2-11) % Eos % (Auto) 0.2 (0-4) % Baso % (Auto) 0.3 (0-2) % Lymph # (Auto) 0.9 L (1.2-4.9) X10*3/uL Scurry # (Auto) 0.7 (0.1-1.2) X10*3/uL Eos # (Auto) 0.0 (0.0-0.4) X10*3/uL Baso # (Auto) 0.0 (0.0-0.2) X10*3/uL Abs Immat Gran (auto) 0.07 H (0.00-0.03) X10*3/uL Absolute Neuts (auto) 9.7 H (2.0-8.3) x10*3/uL Absolute Nucleated RBC 0.000 (0.0-0.012) X10*3/uL Nucleated RBC % (auto) 0.0 (0.0-0.2) /100WBC Sodium 140 (135-145) mmol/L Potassium 3.9 (3.3-5.1) mmol/L Chloride 101 (96-108) mmol/L Carbon Dioxide 25 (22-29) mmol/L Anion Gap 18 (12-20) BUN 10 (9-16) mg/dL Creatinine 0.66 (0.5-1.4) mg/dL Estim Creat Clear Calc 68.7 Estimated GFR > 60 Random Glucose 146 H (60-115) mg/dL Calcium 9.3 D (8.4-10.2) mg/dL Total Bilirubin 0.5 (0.0-1.0) mg/dL AST 44 H (5-31) U/L ALT 41 H (0-31) U/L Alkaline Phosphatase 105 (39-117) U/L Troponin I High Sens 16.4 D (<3.5-17.0) ng/L C-Reactive Protein 8.43 H (< or = 0.50) mg/dL Total Protein 7.5 (6.5-8.0) g/dL Albumin 3.6 (3.5-5.0) g/dL Lipase 13 (8-78) U/L Influenza Type A (PCR) NEGATIVE (Negative) Influenza Type B (PCR) NEGATIVE (Negative) RSV RNA Qual (PCR) NEGATIVE (Negative) SARS-CoV-2 RNA (RT-PCR) NEGATIVE (Negative) Independent Interpretation I performed an independent interpretation of an: EKG and CT Scan (gastritis, duodenitis) Interpretation: Rate: 70 Rhythm: NSR Burton: left Normal P waves. Normal JOSHUA. Normal QRS complex. ST T wave : nonspecific ST T wave changes anterior leads qTC: 473 prior studies: no sig change from prior The study has been interpreted contemporaneously by me. . Radiology Impression Discussion of test interpretation with radiology: I have reviewed the radiologist's reading. Independent Historian Clinical information obtained from an independent historian. History obtained from or confirmed by: Other (family) External Record Review External record reviewed: Inpatient record and Outpatient record Discharge Plan Discharge Clinical Impression: Intractable nausea and vomiting, Duodenitis Patient Disposition: Admitted As Inpatient Prescriptions: No Action (DME) OneTouch Ultra Test Strip See Rx Instructions .Route Qty: 100 2RF Rx Instructions: check BS 2-3x/day gabapentin 400 mg capsule 400 mg PO TID 30 Days Qty: 90 1RF simvastatin 40 mg tablet 40 mg PO BEDTIME Qty: 90 0RF levothyroxine 125 mcg tablet 125 mcg PO DAILY@0630 Qty: 90 1RF magnesium oxide 400 mg (241.3 mg magnesium) tablet 400 mg PO DAILY Qty: 30 0RF diclofenac sodium 75 mg tablet,delayed release (DR/EC) 75 mg PO BID PRN (Reason: Pain) hydroxyzine pamoate 25 mg capsule 25 mg PO BID PRN (Reason: Itching) omeprazole 40 mg capsule,delayed release(DR/EC) 40 mg PO DAILY@0630 amoxicillin-pot clavulanate 875-125 mg Tablet 1 tab PO Q12H Qty: 6 0RF acetaminophen 325 mg Tablet 650 mg PO Q6H PRN (Reason: Pain, Mild 1-3,Fever,Headache) Qty: 30 0RF tramadol 50 mg Tablet 25 mg PO Q6H PRN (Reason: Pain, Moderate(Pain Scale 4-6)) Qty: 30 0RF ferrous sulfate 324 mg (65 mg iron) Tablet,Delayed Release (Dr/Ec) 324 mg PO DAILY Qty: 30 0RF insulin glargine [Basaglar KwikPen U-100 Insulin] 100 unit/mL (3 mL) insulin pen 25 unit subcut DAILY Qty: 15 0RF tramadol 25 mg tablet 25 mg PO Q6H PRN (Reason: pain (scale score 7-10)) Qty: 30 0RF lorazepam 0.5 mg tablet 0.5 - 1 mg PO BID PRN (Reason: ANXIETY OR SLEEP) aspirin [Adult Aspirin Regimen] 81 mg tablet,delayed release (DR/EC) 81 mg PO BEDTIME biotin 1 mg capsule 1 mg PO DAILY omega 3-pkn-sum-fish oil [Fish Oil] 1,000 mg (120 mg-180 mg) capsule 1 cap PO DAILY PRN (Reason: supplemnt) levocetirizine [Xyzal] 5 mg tablet 5 mg PO DAILY PRN (Reason: Allergy Symptoms) (DME) OneTouch Ultra Test Strip See Rx Instructions Not Applicable TID Qty: 10 Rx Instructions: As directed docusate sodium [Colace] 100 mg capsule 100 mg PO DAILY PRN (Reason: Constipation) pyridoxine (vitamin B6) 100 mg tablet 100 mg PO DAILY 90 Days Qty: 90 3RF Print Language: Hungarian
--- NOTE | 2024-06-01 14:08 | ECG_ITS ---
Test Reason : weakness Blood Pressure : */* mmHG Vent. Rate : 70 BPM Atrial Rate : 70 BPM P-R Int : 140 ms QRS Dur : 74 ms QT Int : 438 ms P-R-T Axes : 41 -20 17 degrees QTcB Int : 473 ms Normal sinus rhythm Minimal voltage criteria for LVH, may be normal variant ( R in aVL ) Nonspecific ST and T wave abnormality Prolonged QT Abnormal ECG When compared with ECG of 23-May-2024 06:29, QRS axis Shifted right ST now depressed in Lateral leads Referred By: Lala Benjamin Electronically Signed By: Forest Kelly
[2024-06-01] MEDS: Prochlorperazine Edisylate 10 MG/2 ML VIAL IVPUSH ×2 (14:22→16:30)
[2024-06-01 14:39] LABS: C Reactive Protein 8.43 mg/dL (< or = 0.50); Lipase 13 U/L (8-78)
--- OUTSIDE RECORDS SUMMARY | 2024-06-01 14:50 | XMS_ITS | Patient Health Record ---
Demographics Address [address] [place] [address] Email Address Preferred Language en Marital Status Spiritism Affiliation Unknown Race White Ethnic Group Not or Lati no Author [facility] Address [address] [place] [address] Support Name Relationship Address Phone Rigo Jin Emergency Contact [address] [place] [address] Lizzette Steiner Guarantor Unknown [phone] Care Team Providers Care Public Health Director Name Role Phone Noah Ortega Primary Care Provider Cedric Rueda Unavailable [phone] Allergies Allergen (clinical drug ingredient) Drug/Non Drug [...] Status Risk Notes Problem Contusion of foot (39863418) Contusion of foot (924.20) Active confirmed Problem Edema (31613274) Edema (782.3) Active confirmed Problem Neurologic disorder associated with type II diabetes mellitus (708982531) Diabetic - NIDDM/Neuropathy (250.60) Active confirmed Problem Polyneuropathy due to type 2 diabetes mellitus (518812158) Type 2 diabetes mellitus with diabetic polyneuropathy (E11.42) Active confirmed Vital Signs Height 5 ft 1 in in 06/07/2023 Weight 155 lbs 06/07/2023 BMI 29.28 kg/m2 06/07/2023 Encounters Encounter Location Date Provider Diagnosis [facility] [address] [place] [address] 06/07/2023 Cedric Sosa Type 2 diabetes mellitus [...] Medicare National [employer] [address] [facility] [place] [address] [id number] Lizzette Steiner Self - patient is the insured [facility] [address] [place] [address] [id number] Rigo Steiner Spouse - patient is the spouse of the insured Medical (General) History Medical History History ICD Code breast cancer chicken pox thyroid disorder measles diabetic depression Anxiety Arthritis asthma Back,Hip,and Knee pain Cataracts Depression Fibromyalgia Numbness Psychiatric disorder Hearing loss Surgical History Surgery Date(Month/Year) right mastectomy Left shoulder 3 Spurs
--- OUTSIDE RECORDS SUMMARY | 2024-06-01 14:51 | XMS_ITS ---
Demographics Address [address] [place], [place] Mobile Email Address Preferred Language en Marital Status Unknown Worship Affiliation Unknown Race White Ethnic Group Unknown Author Organization [facility] Address [address] [place] [address] Care Team Providers Care Typewriter Assembler Name Role Phone CARYN CALABRESE Primary Care Provider Herson Franco [phone] REASON FOR VISIT Ultrasound of the abdomen Encounters Encounter Location Date Provider Diagnosis [address] [place] [address] 05/30/2024 Herson Franco Plan Of Treatment Next Appt Details Provider Name:Ángel Box, 0 06/11/2024 02:15:00 PM, [address] [facility] [facility] [address], [place], [address], Progress Notes * Pete MOSQUERAaDOB:[birth year] (74 yo F)Acc No.[id number]:05/30/2024 Patient:?Lizzette MOSQUERA :1950???Age:74 Y???Sex:Female [address] [facility], [place], [place] * true * Date:? Generated for Ruthi nancy/Charis/eTransmitting on:?06/01/2024 02:50 PM EST
--- OUTSIDE RECORDS SUMMARY | 2024-06-01 14:51 | XMS_ITS ---
Demographics Address [address] [place], [place] Mobile Email Address Preferred Language en Marital Status Unknown Islam Affiliation Unknown Race White Ethnic Group Unknown Author Organization [facility] Address [address] [place] [address] Care Team Providers Care Water Filterer Helper Name Role Phone BHARATICARYN Primary Care Provider REASON FOR VISIT Anti Emetic medication Medications Medication SIG (Take, Route, Fr equency, Duration) Notes Start Date End Date Status Ondansetron HCl 4 MG 1 tablet Orally twi ce a day for 15 days 05/22/2024 Active Encounters Encounter Location Date Provider Diagnosis [facility] [address] [address] 05/22/2024 CARYN CALABRESE Plan Of Treatment Medication Medication Name Sig Start Date Stop Date Notes Ondansetron HCl 4 MG 1 tablet Orally twi ce a day for 15 days 05/22/2024 Next Appt Details Provider Name:Ángel Box, Tanisha 06/11/2024 02:15:00 PM, [address] [place] [address], [place], [address], Progress Notes * Alvaro MOSQUERAB:[birth year] (74 yo F)Acc No.[id number]:05/22/2024 Patient:?EVELINE Lizzette :1950???Age:74 Y???Sex:Female Address:[address] [place], [place] * Refills? Start Ondansetron HCl Tablet, 4 MG, Orally, 30 Tablet, 1 tablet, twice a day, 15 days, Refills=1 * true * Date:? Generated for Printi ng/Charis/Sydneeitting on:?06/01/2024 02:50 PM EST
--- OUTSIDE RECORDS SUMMARY | 2024-06-01 14:51 | XMS_ITS | Clinical Summary ---
Demographics Address [address] [place] [address] Home Phone Email Address Preferred Language Portuguese Marital Status Buddhism Affiliation Unknown Race White Ethnic Group Not or Lati no Author Organization [facility] Address [address] [place] [address] Support Name Relationship Address Phone Rigo Steiner Emergency Contact [address] [place] [address] Care Team Providers Care Automotive Internet Sales Manager Name Role Phone Obi Miller MD Primary Care Provider [phone] Allergies Active Allergy Reactions Criticality Noted Date [...] Lizzette Steiner Personal/Family Self 1950 [address] [place] [address] Care Teams Automotive Internet Sales Manager Relationship Specialty Start Date End Date Obi Miller MD [address] [place] [id number] PCP - General Internal Medicine 01/31/18
--- OUTSIDE RECORDS SUMMARY | 2024-06-01 14:51 | XMS_ITS ---
Demographics Address [address] [place] [address] Email Address Preferred Language en Marital Status Sabianist Affiliation Unknown Race White Ethnic Group Not or Lati no Author Organization [facility] Address [address] [place] [address] Support Name Relationship Address Phone Rigo Jin Emergency Contact [address] [place], [place] [id number] Lizzette Mosquera Guarantor Unknown Care Team Providers Care Typewriter Operator Automatic Name Role Phone Noah Ortega Primary Care Provider Cedric Rueda [phone] REASON FOR VISIT SANDFILL OPERATOR SURFACE PPWK Entered Encounters Encounter Location Date Provider Diagnosis [facility] [address] [place] [address] 04/21/2023 Cedric Sosa Plan Of Treatment No Information Progress Notes * Lizzette MOSQUERA LDOB:1950 (72 yo F)Acc No.[id number]:04/21/2023 Patient:?Obdulia Lizzette Ford :1950???Age:72 Y???Sex:Female Address:[address] [place] [address] * true * Date:? Generated for Royer cruz/Charis/eTransmitting on:?06/01/2024 02:50 PM EST
--- OUTSIDE RECORDS SUMMARY | 2024-06-01 14:51 | XMS_ITS ---
Demographics Address [address] [place], [place] Mobile Email Address Preferred Language en Marital Status Unknown Muslim Affiliation Unknown Race White Ethnic Group Unknown Author Organization [facility] Address [address] [place] [address] Care Team Providers Care Cloth Hauler Name Role Phone CARYN CALABRESE Primary Care Provider REASON FOR VISIT Home Services FYI Encounters Encounter Location Date Provider Diagnosis [address] [address] 05/29/2024 CARYN CALABRESE Plan Of Treatment Next Appt Details Provider Name:Ángel Box, 0 06/11/2024 02:15:00 PM, [address] [place] [address], [place], [address], Progress Notes * Alvaro MOSQUERAB:[birth year] (74 yo F)Acc No.[id number]:05/29/2024 Patient:?Lizzette MOSQUERA :1950???Age:74 Y???Sex:Female Address:[address] [facility], [place], [place] * true * Date:? Generated for Ruthi nancy/Charis/eTransmitting on:?06/01/2024 02:50 PM EST
[2024-06-01 15:42] LABS: Troponin-I High Sensitivity 16.4 ng/L (<3.5-17.0)
[2024-06-01] MEDS: Lactated Ringers 1,000 ML 999 ML IV (15:51)
[2024-06-01] MEDS: iohexoL 350 MG/ML 100 ML INFUS..BTL IV (16:08)
--- NOTE | 2024-06-01 17:02 | P.HPHOSP_ITS ---
History of Present Illness Date of Service: 06/01/24 Chief Complaint: n/v A 74-year-old female with a past medical history of hypertension, hyperlipidemia, hypothyroidism, GERD, insulin-dependent type 2 diabetes, fibromyalgia, depression, and OCD. She was admitted on 05/24 for acute cholecystitis, underwent cholecystectomy, and was discharged home on 05/27. She presents again due to intractable nausea, without vomiting, and an inability to keep oral intake. A CT scan reveals somewhat prominent thickening along the gastric pylorus and proximal duodenum, with distal gastritis/duodenitis suspected. No perforation or free air identified. In the ED, she received IVF, Reglan, Zofran, and IV Protonix but continues to experience symptoms. She has been admitted for symptom control and further GI evaluation. Review of Systems 2 Review of Systems: Gen: no fever Resp: no sob, no cough CV: no chest, no JARAMILLO, no leg edema GI: +n/v, no abd pain Neuro: No confusion Yes all other systems are reviewed and are negative [facility] Medical History Bilateral cataracts Schizoaffective disorder Confusion Skin rash Vitamin D deficiency HTN (hypertension) HLD (hyperlipidemia) Cellulitis of leg, left Skin excoriation Urinary urgency Encounter to establish care Arthralgia of shoulder region, left Cervical spondylitis with radiculitis Myofascial pain on left side Depression OCD (obsessive compulsive disorder) DJD (degenerative joint disease) SI (sacroiliac) joint dysfunction Fibromyalgia GERD (gastroesophageal reflux disease) Neuropathy Diabetes Family History Father No problems noted. Mother No problems noted. Surgical History H/O mastectomy Hx of appendectomy H/O exploratory laparotomy History of surgery Social History Household Members: Unknown / Unable to assess Household Members Other:: 1 Housing: House Do you presently have visiting nurse or other home services: No Alcohol intake: former Comment: SI 1:1 Patient Tobacco Use Status: Never used Tobacco Tobacco use type: Cigarette Smoked in Last 30 Days: No e-Cigarette/Vaping Use: Never Used Second Hand Smoke Exposure: No Use of substances other than those prescribed or required for medical reasons: No Advance Directives: Yes Advance Directives Information Provided: Yes Advance Directives on File: No Nutrition Risks: No Nutritional Risk service: No Current occupational status: retired Cognitive needs: Yes (cane) Hearing needs: Yes (hearing aide) Vision needs: Yes (glasses) Meds Allergies Allergy/AdvReac Type Severity Reaction Status Date / Time codeine [Codeine] Allergy Unknown NAUSEA AND Verified 06/01/24 10:11 VOMITING, nausea pregabalin Allergy Unknown Confusion Verified 06/01/24 10:11 rosuvastatin [Crestor] Allergy Unknown joint pain Verified 06/01/24 10:11 NSAIDS (Non-Steroidal Allergy Swelling Verified 06/01/24 10:11 Anti-Inflamma oxycodone [From OxyContin] Allergy Itching Verified 06/01/24 10:11 [place] Insulin Allergy Unknown severe Uncoded 05/23/24 05:42 itching tapes, adhesives, tegaderm, Allergy Unknown rash Uncoded 05/23/24 05:42 st wellbutrin Allergy Unknown rash Uncoded 05/23/24 05:42 lexapro AdvReac Severe lethargic Uncoded 05/23/24 05:42 Active Medications: Current Medications Lactated Ringer's (Lr) 1,000 mls @ 80 mls/hr IVCONT .[id number] GLENN Home Medications ?Medication ?Instructions ?Recorded ?Confirmed ?Last Taken ?Type aspirin 81 mg tablet,delayed 81 mg PO BEDTIME 01/01/21 06/01/24 Unknown History release (Adult Aspirin Regimen) lorazepam 0.5 mg tablet 0.5 - 1 mg PO BID PRN ANXIETY OR 01/01/21 06/01/24 Unknown History SLEEP biotin 1 mg capsule 1 mg PO DAILY 05/17/21 06/01/24 Unknown History omega 6-ldi-yxe-fish oil 1,000 mg 1 cap PO DAILY PRN supplemnt 05/17/21 06/01/24 Unknown History (120 mg-180 mg) capsule (Fish Oil) blood sugar diagnostic (OneTouch #10 ea 05/27/21 10/30/23 Unknown History Ultra Test strips) levocetirizine 5 mg tablet (Xyzal) 5 mg PO DAILY PRN Allergy Symptoms 09/09/21 06/01/24 Unknown History docusate sodium 100 mg capsule 100 mg PO DAILY PRN Constipation 12/28/23 06/01/24 Unknown History (Colace) diclofenac sodium 75 mg 75 mg PO BID PRN Pain 05/23/24 06/01/24 Unknown History tablet,delayed release hydroxyzine pamoate 25 mg capsule 25 mg PO BID PRN Itching 05/23/24 06/01/24 Unknown History omeprazole 40 mg capsule,delayed 40 mg PO DAILY@0630 05/23/24 06/01/24 Unknown History release insulin glargine 100 unit/mL (3 46 unit subcut DAILY 06/01/24 06/01/24 Unknown History mL) subcutaneous pen (Basaglar KwikPen U-100 Insulin) ipratropium bromide 42 mcg (0.06 2 spray intranasal QID PRN Allergy 06/01/24 06/01/24 Unknown History %) nasal spray Symptoms Physical Exam 2 Vital Signs and Narrative: Vital Signs: Last Vital Signs Temp 97.6 F 06/01/24 10:08 Pulse 73 06/01/24 10:08 Resp 18 06/01/24 10:08 BP 156/60 H 06/01/24 10:08 Pulse Ox 99 06/01/24 10:08 O2 Del Method Room Air 06/01/24 10:08 BMI result Body Mass Index 29.3 Const: Other: General: Alert and oriented x3, no acute distress Respiratory: CTA bilateral Cardiovascular: S1, S2, regular rate and rhythm Gastrointestinal: Positive bowel sounds, non-tender, no distention Skin: No rash Neurological: Motor grossly intact Psychiatric: Appropriate affect Results Labs 06/01/24 10:32 06/01/24 10:32 Labs: Laboratory Results - last 24 hr 06/01/24 10:32 MCV 93.1 MCH 31.6 MCHC 34.0 RDW 12.0 Plt Count 574 H D MPV 8.1 L Immature Gran % (Auto) 0.6 H Neut % (Auto) 84.7 H Lymph % (Auto) 7.7 L [place] % (Auto) 6.5 Eos % (Auto) 0.2 Baso % (Auto) 0.3 Lymph # (Auto) 0.9 L [place] # (Auto) 0.7 Eos # (Auto) 0.0 Baso # (Auto) 0.0 Abs Immat Gran (auto) 0.07 H Absolute Neuts (auto) 9.7 H Absolute Nucleated RBC 0.000 Nucleated RBC % (auto) 0.0 Anion Gap 18 Estim Creat Clear Calc 68.7 Estimated GFR > 60 Random Glucose 146 H Calcium 9.3 D Total Bilirubin 0.5 AST 44 H ALT 41 H Alkaline Phosphatase 105 C-Reactive Protein 8.43 H Total Protein 7.5 Albumin 3.6 Lipase 13 Influenza Type A (PCR) NEGATIVE Influenza Type B (PCR) NEGATIVE RSV RNA Qual (PCR) NEGATIVE SARS-CoV-2 RNA (RT-PCR) NEGATIVE Assessment and Plan (1) Intractable nausea: Status: Acute (2) Gastritis: Status: Acute Plan A 74-year-old female with a past medical history of hypertension, hyperlipidemia, hypothyroidism, GERD, insulin-dependent type 2 diabetes, fibromyalgia, depression, and OCD, recently underwent cholecystectomy for acute cholecystitis and now presents with intractable nausea. Imaging revealed findings of gastritis and duodenitis on CT. She reports no vomiting and had some of these symptoms prior to her last admission for cholecystitis. Intractable nausea, cause unknown IV fluids Antiemetics: Zofran, Reglan Duodenitis, gastritis IV PPI GI consult Insulin-dependent type 2 diabetes mellitus While NPO, hold Lantus, add SSI, monitor glucose Fibromyalgia Continue gabapentin Hypothyroidism Continue levothyroxine Mood disorder Resume home medications when able to take orals Hyperlipidemia Continue statin when eating Full Code DVT Prophylaxis Lovenox Admission is for intractable nausea and inability to take oral medications, with duodenitis requiring IV PPI and close monitoring for potential perforation. Quality Stroke Does the patient have a stroke diagnosis?: No VTE Prior VTE?: No VTE Risk Level:: Medical - moderate - high VTE Device Contraindication: Treatment Not Indicated VTE Drug Contraindication: N/A - Med Ordered
[2024-06-01] MEDS: Pantoprazole Sodium 40 MG/10 ML VIAL IVPUSH (17:22)
[2024-06-01] MEDS: Lactated Ringers 1,000 ML 80 ML IVCONT (17:28)
[2024-06-01 17:44] LABS: Appearance Urine Clear; Color Urine Yellow; Glucose Urine UA Negative (Negative); Leukocyte Esterase Urine Negative (Negative); Nitrite Urine Negative (Negative); Specific Gravity - Urine 1.025 (1.005-1.025); UMIC TRIGGER UACC YES; Urine Blood Negative (Negative); Urine Ketones 80 mg/dL (Negative); Urine Protein 30 (1+) mg/dL (Neg-Trace)
[2024-06-01 17:55] LABS: Bacteria Urine None Seen (None Seen); RBC Urine 0-2 /HPF (0-2); WBC Urine 0-5 /HPF (0-5)
[2024-06-01 18:15] VITALS: BP 179/84; PULSE 80; RESP 16; TEMP 36.2; O2SAT 97
[2024-06-01 18:47] VITALS: BP 172/88; PULSE 80; RESP 16; TEMP 36.2; O2SAT 97
--- NOTE | 2024-06-01 19:05 | PHA.MEDREC ---
Addendum entered by Martin Caruso [facility] 06/01/24 19:29: med rec checked by [facility] Original Note: Pharmacy Consult ? Medication Reconciliation Pharmacy has completed the medication reconciliation. Spoke with patient to confirm medications. She is no longer taking iron, says it caused her issues with her stool. She finished antibiotics. She is not taking tramadol, says it does not work for her. confirmed tylenol prn. She reports Lantus is 46 units. She confirmed omeprazole, not on claims but patient says she takes it daily and it is on her home med list. She uses ipratropium nasal spray prn. She confirmed she is not taking duloxetine, latuda, or zofran. She reports she had no medications today.
[2024-06-01] MEDS: Lactated Ringers 1,000 ML 125 ML IVCONT (19:39)
[2024-06-01] MEDS: Enoxaparin Sodium 40 MG/0.4 ML SYRINGE SUBCUT (19:40)
[2024-06-01 21:40] LABS: Glucose, Whole Blood 136 mg/dL (60-115)
[2024-06-01] MEDS: Metoclopramide HCl 10 MG/2 ML VIAL IVPUSH (21:46)
[2024-06-01 23:58] VITALS: BP 146/62; PULSE 80; RESP 20; TEMP 36.8; O2SAT 96
[2024-06-02] MEDS: Prochlorperazine Edisylate 10 MG/2 ML VIAL 5 MG IVPUSH (01:40)
[2024-06-02] MEDS: 0.9 % Sodium Chloride Flush 3 ML SYRINGE IVFLUSH (01:40)
[2024-06-02] MEDS: Lactated Ringers 1,000 ML 125 ML IVCONT ×3 (03:14→20:32)
[2024-06-02 05:11] VITALS: BP 161/73; PULSE 81; RESP 16; TEMP 36.6; O2SAT 99
[2024-06-02] MEDS: Pantoprazole Sodium 40 MG/10 ML VIAL IVPUSH ×2 (06:26→16:11)
--- NOTE | 2024-06-02 06:53 | PC.NURSE ---
pt resting comfortably on/off throughout the night. up to commode multiple times. still endorses nausea at times
[2024-06-02 07:27] LABS: Glucose, Whole Blood 124 mg/dL (60-115)
[2024-06-02 07:43] VITALS: BP 131/82; PULSE 69; RESP 20; TEMP 37; O2SAT 96
--- NOTE | 2024-06-02 10:06 | PM.GICN ---
History of Present Illness Data of Consult Service Date: 06/02/24 Requesting physician: Jj Murphy Primary Care Provider: Jaye Ortega MD HPI Reason for consult: nausea 74-year-old female with a past medical history of hypertension, hyperlipidemia, hypothyroidism, GERD, insulin-dependent type 2 diabetes, fibromyalgia, depression, and OCD who I am seeing for nausea She was admitted on 05/24 for acute cholecystitis, underwent cholecystectomy, and was discharged home on 05/27. During that admission she also had severe nausea. This time its the same symptom without vomiting and no abdominal pain. Appetite is fair, weight is stable. She denies constipation, but admits to diarrhea with incontinence, no new medications recently. CT imaging with thickening of the stomach and duodenum and stranding. LAB:high crp, mild raised WCC and plts She says since she got medications she is feeling better and nausea is reduced Review of Systems Review of Systems: Constitutional : No Weight loss, No Fever, No Chills ENT/Mouth : No sore throat, No Rhinorrhea Eyes: No Swelling, No Redness Cardiovascular : No Chest Pain, No SOB, No Edema Respiratory : No Cough, No Sputum, No Wheezing Gastrointestinal : see HPI Genitourinary : NO Dysuria, No Urinary Frequency, No Hematuria, No Urgency Musculoskeletal : + joint pain, No Myalgias, No Joint Swelling Skin : No Skin Lesions, No rash, chronic itching Neuro : No Weakness, No Numbness, No Dizziness, No Headache Psych : No Anxiety/Panic, No Depression Heme/Lymph: No Bruising, No Lymphadenopathy Endocrine : No Polyuria, No Polydipsia All other systems reviewed and are negative. [facility] Past Medical History Medical History Bilateral cataracts Schizoaffective disorder Confusion Skin rash Vitamin D deficiency HTN (hypertension) HLD (hyperlipidemia) Cellulitis of leg, left Skin excoriation Urinary urgency Encounter to establish care Arthralgia of shoulder region, left Cervical spondylitis with radiculitis Myofascial pain on left side Depression OCD (obsessive compulsive disorder) DJD (degenerative joint disease) SI (sacroiliac) joint dysfunction Fibromyalgia GERD (gastroesophageal reflux disease) Neuropathy Diabetes Family History Family History Father No problems noted. Mother No problems noted. Surgical History Surgical History H/O mastectomy Hx of appendectomy H/O exploratory laparotomy History of surgery Social History Social History Household Members: Unknown / Unable to assess Household Members Other:: 1 Housing: House Do you presently have visiting nurse or other home services: No Alcohol intake: former Comment: SI 1:1 Patient Tobacco Use Status: Never used Tobacco Tobacco use type: Cigarette Smoked in Last 30 Days: No e-Cigarette/Vaping Use: Never Used Second Hand Smoke Exposure: No Use of substances other than those prescribed or required for medical reasons: No Advance Directives: Yes Advance Directives Information Provided: Yes Advance Directives on File: No Nutrition Risks: No Nutritional Risk service: No Current occupational status: retired Cognitive needs: Yes (cane) Hearing needs: Yes (hearing aide) Vision needs: Yes (glasses) Meds Allergies Allergy/AdvReac Type Severity Reaction Status Date / Time codeine [Codeine] Allergy Unknown NAUSEA AND Verified 06/01/24 10:11 VOMITING, nausea pregabalin Allergy Unknown Confusion Verified 06/01/24 10:11 rosuvastatin [Crestor] Allergy Unknown joint pain Verified 06/01/24 10:11 NSAIDS (Non-Steroidal Allergy Swelling Verified 06/01/24 10:11 Anti-Inflamma oxycodone [From OxyContin] Allergy Itching Verified 06/01/24 10:11 [place] Insulin Allergy Unknown severe Uncoded 05/23/24 05:42 itching tapes, adhesives, tegaderm, Allergy Unknown rash Uncoded 05/23/24 05:42 st wellbutrin Allergy Unknown rash Uncoded 05/23/24 05:42 lexapro AdvReac Severe lethargic Uncoded 05/23/24 05:42 Active Medications: Current Medications Acetaminophen (Acetaminophen 325 Mg Tablet) 650 mg PO Q6H PRN PRN Reason: Pain, Mild 1-3,fever,headache Atorvastatin Calcium (Atorvastatin Calcium 20 Mg Tablet) 20 mg PO DAILY [facility]ENN Calcium Carbonate (Calcium Carbonate 750 Mg Tab.Chew) 750 mg PO Q4H PRN PRN Reason: Heartburn Dextrose (Dextrose 50 % 25 Gm/50 Ml Syringe) 25 gm IVPUSH Q15M PRN; Protocol PRN Reason: per Hypoglycemia Standing Ord. Docusate Sodium (Docusate Sodium 100 Mg Capsule) 100 mg PO DAILY PRN PRN Reason: Constipation Enoxaparin Sodium (Enoxaparin Sodium 40 Mg/0.4 Ml Syringe) 40 mg SUBCUT Q24H [facility] Last Admin: 06/01/24 19:40 Dose: 40 mg Gabapentin (Gabapentin 400 Mg Capsule) 400 mg PO TID [facility] Glucose (Glucose Gel 15 Gm Gel..Gram.) 15 gm PO Q15M PRN; Protocol PRN Reason: per Hypoglycemia Standing Ord. Hydroxyzine HCl (Hydroxyzine Hcl 25 Mg Tablet) 25 mg PO BID PRN PRN Reason: Itching Lactated Ringer's (Lr) 1,000 mls @ 80 mls/hr IVCONT .[id number] [facility] Last Admin: 06/02/24 05:17 Dose: Not Given Lactated Ringer's (Lr) 1,000 mls @ 125 mls/hr IVCONT .Q8H [facility] Last Admin: 06/02/24 03:14 Dose: 125 mls/hr Insulin Human Lispro (Insulin Lispro 100 Unit/Ml 3 Ml Vial) 0 unit SUBCUT QIDACHS [facility]; Protocol Last Admin: 06/02/24 07:50 Dose: Not Given Ipratropium [place] (Ipratropium [place] Rafita 0.06 % 15 Ml [place]) 2 spray NOSTRIL-B QID PRN PRN Reason: Allergy Symptoms Levothyroxine Sodium (Levothyroxine Sodium 125 Mcg Tablet) 125 mcg PO DAILY@0630 [facility] Loratadine (Loratadine 10 Mg Tablet) 10 mg PO DAILY PRN PRN Reason: Allergy Symptoms Lorazepam (Lorazepam 0.5 Mg Tablet) 0.5 mg PO BID PRN PRN Reason: ANXIETY OR SLEEP Magnesium Hydroxide (Milk Of Magnesia 30 Ml Oral.Susp) 30 ml PO DAILY PRN PRN Reason: Constipation Magnesium Oxide (Magnesium Oxide 400 Mg Tablet) 400 mg PO DAILY [facility] Melatonin (Melatonin 3 Mg Tablet) 6 mg PO BEDTIME PRN PRN Reason: Insomnia Pantoprazole Sodium (Pantoprazole Sodium 40 Mg/10 Ml Vial) 40 mg IVPUSH BID@0630,1630 [facility] Last Admin: 06/02/24 06:26 Dose: 40 mg Polyethylene Glycol (Polyethylene Glycol 3350 17 Gm Powd.Pack) 17 gm PO DAILY PRN PRN Reason: Constipation Prochlorperazine Edisylate (Prochlorperazine Edisylate 10 Mg/2 Ml Vial) 5 mg IVPUSH Q6H PRN PRN Reason: Nausea and Vomiting Last Admin: 06/02/24 01:40 Dose: 5 mg Pyridoxine HCl (Pyridoxine Hcl (Vitamin B6) 50 Mg Tablet) 100 mg PO DAILY GLENN Sodium Chloride (0.9 % Sodium Chloride Flush 3 Ml Syringe) 3 ml IVFLUSH QSHIFT [facility] Last Admin: 06/02/24 07:52 Dose: Not Given Home Medications ?Medication ?Instructions ?Recorded ?Confirmed ?Last Taken ?Type aspirin 81 mg tablet,delayed 81 mg PO BEDTIME 01/01/21 06/01/24 Unknown History release (Adult Aspirin Regimen) lorazepam 0.5 mg tablet 0.5 - 1 mg PO BID PRN ANXIETY OR 01/01/21 06/01/24 Unknown History SLEEP biotin 1 mg capsule 1 mg PO DAILY 05/17/21 06/01/24 Unknown History omega 2-ntf-tnn-fish oil 1,000 mg 1 cap PO DAILY PRN supplemnt 05/17/21 06/01/24 Unknown History (120 mg-180 mg) capsule (Fish Oil) blood sugar diagnostic (OneTouch #10 ea 05/27/21 10/30/23 Unknown History Ultra Test strips) levocetirizine 5 mg tablet (Xyzal) 5 mg PO DAILY PRN Allergy Symptoms 09/09/21 06/01/24 Unknown History docusate sodium 100 mg capsule 100 mg PO DAILY PRN Constipation 12/28/23 06/01/24 Unknown History (Colace) diclofenac sodium 75 mg 75 mg PO BID PRN Pain 05/23/24 06/01/24 Unknown History tablet,delayed release hydroxyzine pamoate 25 mg capsule 25 mg PO BID PRN Itching 05/23/24 06/01/24 Unknown History omeprazole 40 mg capsule,delayed 40 mg PO DAILY@0630 05/23/24 06/01/24 Unknown History release insulin glargine 100 unit/mL (3 46 unit subcut DAILY 06/01/24 06/01/24 Unknown History mL) subcutaneous pen (Basaglar KwikPen U-100 Insulin) ipratropium bromide 42 mcg (0.06 2 spray intranasal QID PRN Allergy 06/01/24 06/01/24 Unknown History %) nasal spray Symptoms Physical Exam Vital Signs: Vital Signs: Last Vital Signs Temp 98.6 F 06/02/24 07:43 Pulse 69 06/02/24 07:43 Resp 20 06/02/24 07:43 BP 131/82 06/02/24 07:43 Pulse Ox 96 06/02/24 07:43 O2 Del Method Room Air 06/02/24 07:43 BMI result Body Mass Index 29.3 EXAM: GENERAL: The patient is well developed and nontoxic. VITAL SIGNS:see workflow HEENT: Nonicteric sclerae, PERRLA, EOMI. Oropharynx clear. Moist mucous membranes. Conjunctivae appear well perfused. No thyroid mass. CHEST: Chest wall is nontender. HEART: Regular rate and rhythm without murmurs. LUNGS: Clear to auscultation bilaterally. ABDOMEN: Soft, positive bowel sounds, nontender, no organomegaly.no flank tenderness SKIN: No rash, no excessive bruising, petechiae, or purpura. NEUROLOGIC: Cranial nerves II-XII intact without motor/sensory deficit. Psych: normal affect Results Labs 06/01/24 10:32 06/01/24 10:32 Labs: Short CBC 06/01/24 Range/Units 10:32 WBC 11.5 H (4.8-10.8) X10*3/uL Hgb 12.8 (12.0-16.0) g/dl Hct 37.7 (37.0-47.0) % Plt Count 574 H D (160-400) X10*3/uL BMP 06/01/24 10:32 Sodium 140 Potassium 3.9 Chloride 101 Carbon Dioxide 25 BUN 10 Creatinine 0.66 Calcium 9.3 D Liver Function 06/01/24 Range/Units 10:32 Total Bilirubin 0.5 (0.0-1.0) mg/dL AST 44 H (5-31) U/L ALT 41 H (0-31) U/L Alkaline Phosphatase 105 (39-117) U/L Albumin 3.6 (3.5-5.0) g/dL Urine 06/01/24 Range/Units 17:35 Urine Color Yellow Urine Appearance Clear Urine pH 6.0 (5.0-9.0) Ur Specific [place] 1.025 (1.005-1.025) Urine Protein 30 (1+) H (Neg-Trace) mg/dL Urine Glucose (UA) Negative (Negative) mg/dL Imaging CT scan - abdomen: Attestation: I personally reviewed and interpreted this imaging study as follows: (duodenitis and gastritis ) Assessment and Plan (1) Intractable nausea: Status: Acute Plan 1/ Nausea possibly due to gastritis and duodenitis, may be stress related due to recent cholecystitis. Mild raised LFT ddx: retained gallstones, also has diarrhea, need to r/o concurrent c diff PLAN: 1/ check c diff 2/ cont with PPI, anti emetics 3/ if able to tolerate PO and improving then will hold on EGD, other dos santos can consider either tomorrow or monday pending OR schedule 4/ RUQ r/o retained stones Procedures Date of Service Date of Service: 06/02/24
[2024-06-02] MEDS: Pyridoxine HCl (Vitamin B6) 50 MG TABLET 100 MG PO (10:14)
[2024-06-02] MEDS: Magnesium Oxide 400 MG TABLET PO (10:14)
[2024-06-02] MEDS: Gabapentin 400 MG CAPSULE PO ×3 (10:14→20:31)
[2024-06-02] MEDS: Levothyroxine Sodium 125 MCG TABLET PO (10:16)
[2024-06-02 12:11] LABS: Glucose, Whole Blood 109 mg/dL (60-115)
--- NOTE | 2024-06-02 14:07 | HO.PM.IMPN ---
Subjective Subjective Date of Service: 06/02/24 Interval History: F/u on intractable Nausea, but no vomitting no nausea since yesterday reporting some diarrhea Physical Exam Vital Signs: Vital Signs: Last Vital Signs Temp 98.6 F 06/02/24 07:43 Pulse 69 06/02/24 07:43 Resp 20 06/02/24 07:43 BP 131/82 06/02/24 07:43 Pulse Ox 96 06/02/24 07:43 O2 Del Method Room Air 06/02/24 07:43 BMI result Body Mass Index 29.3 Const: Other: General: AO X 3, no acute distress Resp: CTA bilateral CVS: S1,S2,RRR GI: +BS, NT, no distention Skin: No rash Neuro: motor grossly intact Psych: appropriate affect Objective Data Active Medications Acetaminophen (Acetaminophen 325 Mg Tablet) 650 mg PO Q6H PRN PRN Reason: Pain, Mild 1-3,fever,headache Atorvastatin Calcium (Atorvastatin Calcium 20 Mg Tablet) 20 mg PO DAILY [facility] Calcium Carbonate (Calcium Carbonate 750 Mg Tab.Chew) 750 mg PO Q4H PRN PRN Reason: Heartburn Dextrose (Dextrose 50 % 25 Gm/50 Ml Syringe) 25 gm IVPUSH Q15M PRN; Protocol PRN Reason: per Hypoglycemia Standing Ord. Docusate Sodium (Docusate Sodium 100 Mg Capsule) 100 mg PO DAILY PRN PRN Reason: Constipation Enoxaparin Sodium (Enoxaparin Sodium 40 Mg/0.4 Ml Syringe) 40 mg SUBCUT Q24H [facility] Last Admin: 06/01/24 19:40 Dose: 40 mg Documented By: TIN Gabapentin (Gabapentin 400 Mg Capsule) 400 mg PO TID [facility] Last Admin: 06/02/24 10:14 Dose: 400 mg Documented By: CLARY Glucose (Glucose Gel 15 Gm Gel..Gram.) 15 gm PO Q15M PRN; Protocol PRN Reason: per Hypoglycemia Standing Ord. Hydroxyzine HCl (Hydroxyzine Hcl 25 Mg Tablet) 25 mg PO BID PRN PRN Reason: Itching Lactated Ringer's (Lr) 1,000 mls @ 80 mls/hr IVCONT .[id number] [facility] Last Admin: 06/02/24 05:17 Dose: Not Given Documented By: TIN Non-Admin Reason: Medication Discontinued Lactated Ringer's (Lr) 1,000 mls @ 125 mls/hr IVCONT .Q8H [facility] Last Admin: 06/02/24 10:16 Dose: 125 mls/hr Documented By: CLARY Insulin Human Lispro (Insulin Lispro 100 Unit/Ml 3 Ml Vial) 0 unit SUBCUT QIDACHS [facility]; Protocol Last Admin: 06/02/24 12:40 Dose: Not Given Documented By: CLARY Non-Admin Reason: No Insulin Coverage Ipratropium [place] (Ipratropium [place] Rafita 0.06 % 15 Ml [place]) 2 spray NOSTRIL-B QID PRN PRN Reason: Allergy Symptoms Levothyroxine Sodium (Levothyroxine Sodium 125 Mcg Tablet) 125 mcg PO DAILY@0630 [facility] Last Admin: 06/02/24 10:16 Dose: 125 mcg Documented By: CLARY Loratadine (Loratadine 10 Mg Tablet) 10 mg PO DAILY PRN PRN Reason: Allergy Symptoms Lorazepam (Lorazepam 0.5 Mg Tablet) 0.5 mg PO BID PRN PRN Reason: ANXIETY OR SLEEP Magnesium Hydroxide (Milk Of Magnesia 30 Ml Oral.Susp) 30 ml PO DAILY PRN PRN Reason: Constipation Magnesium Oxide (Magnesium Oxide 400 Mg Tablet) 400 mg PO DAILY [facility] Last Admin: 06/02/24 10:14 Dose: 400 mg Documented By: CLARY Melatonin (Melatonin 3 Mg Tablet) 6 mg PO BEDTIME PRN PRN Reason: Insomnia Pantoprazole Sodium (Pantoprazole Sodium 40 Mg/10 Ml Vial) 40 mg IVPUSH BID@0630,1630 [facility] Last Admin: 06/02/24 06:26 Dose: 40 mg Documented By: TIN Polyethylene Glycol (Polyethylene Glycol 3350 17 Gm Powd.Pack) 17 gm PO DAILY PRN PRN Reason: Constipation Prochlorperazine Edisylate (Prochlorperazine Edisylate 10 Mg/2 Ml Vial) 5 mg IVPUSH Q6H PRN PRN Reason: Nausea and Vomiting Last Admin: 06/02/24 01:40 Dose: 5 mg Documented By: TIN Pyridoxine HCl (Pyridoxine Hcl (Vitamin B6) 50 Mg Tablet) 100 mg PO DAILY [facility] Last Admin: 06/02/24 10:14 Dose: 100 mg Documented By: CLARY Sodium Chloride (0.9 % Sodium Chloride Flush 3 Ml Syringe) 3 ml IVFLUSH QSHIFT [facility] Last Admin: 06/02/24 07:52 Dose: Not Given Documented By: CLARY Non-Admin Reason: IV Running Labs 06/01/24 10:32 06/01/24 10:32 Labs: Laboratory Results - last 24 hr 06/01/24 06/01/24 06/01/24 10:32 17:35 21:37 POC Glucose 136 H C-Reactive Protein 8.43 H Lipase 13 Urine Color Yellow Urine Appearance Clear Urine pH 6.0 Ur Specific [place] 1.025 Urine Protein 30 (1+) H Urine Glucose (UA) Negative Urine Ketones 80 Urine Blood Negative Urine Nitrite Negative Ur Leukocyte Esterase Negative Urine RBC 0-2 Urine WBC 0-5 Ur Squamous Epith Cells 11-20 Urine Bacteria None Seen Hyaline Casts 3-5 06/02/24 06/02/24 07:23 12:05 POC Glucose 124 H 109 C-Reactive Protein Lipase Urine Color Urine Appearance Urine pH Ur Specific [place] Urine Protein Urine Glucose (UA) Urine Ketones Urine Blood Urine Nitrite Ur Leukocyte Esterase Urine RBC Urine WBC Ur Squamous Epith Cells Urine Bacteria Hyaline Casts Assessment and Plan (1) Nausea: Status: Acute Plan A 74-year-old female with a past medical history of hypertension, hyperlipidemia, hypothyroidism, GERD, insulin-dependent type 2 diabetes, fibromyalgia, depression, and OCD, recently underwent cholecystectomy for acute cholecystitis and now presents with intractable nausea. Imaging revealed findings of gastritis and duodenitis on CT. She reports no vomiting and had some of these symptoms prior to her last admission for cholecystitis. Intractable nausea, cause unknown, seems better with IVF, PPI and antiemetics IV fluids Antiemetics liquid and advance as yasimn US showed no retained stone Duodenitis, gastritis IV PPI GI to consider EGD if symptoms persist Insulin-dependent type 2 diabetes mellitus hold Lantus, sliding scale while on liquid diet Fibromyalgia Continue gabapentin Hypothyroidism Continue levothyroxine Mood disorder continue home medications when able to take orals Hyperlipidemia Continue statin when eating Full Code DVT Prophylaxis Lovenox Quality Stroke Does the patient have a stroke diagnosis?: No VTE Prior VTE?: No VTE Risk Level:: Medical - moderate - high VTE Device Contraindication: Treatment Not Indicated VTE Drug Contraindication: N/A - Med Ordered
[2024-06-02] MEDS: Acetaminophen 325 MG TABLET 650 MG PO (15:00)
--- NOTE | 2024-06-02 16:05 | MHC.CM.PN ---
PT REPORTS SHE LIVES WITH HER AND IS INDEPENDENT WITH CARE SHE IS ACTIVE WITH [facility] AND USES A CANE TO AMBULATE COPY OF HCP REQUESTED PCP; CARIDAD CALABRESE IMM DELIVERED DCP: [facility] TRANSPORT
[2024-06-02 16:06] VITALS: BP 180/78; PULSE 71; RESP 20; TEMP 36.8; O2SAT 98
[2024-06-02 16:43] LABS: Glucose, Whole Blood 132 mg/dL (60-115)
--- NOTE | 2024-06-02 17:05 | PC.NURSE ---
patient states she is having abd pain, patient given prn tylenol, pain continues. inpatient attending made aware
[2024-06-02 19:31] VITALS: BP 137/73; PULSE 73; RESP 18; TEMP 36.8; O2SAT 97
--- NOTE | 2024-06-02 19:54 | PC.NURSE ---
pt reports some relief with prn tylenol received previously but continues to have 7/10 pain. no prn available at this time, MD limon notified.
[2024-06-02 20:21] LABS: Glucose, Whole Blood 137 mg/dL (60-115)
[2024-06-02] MEDS: Enoxaparin Sodium 40 MG/0.4 ML SYRINGE SUBCUT (20:24)
[2024-06-02] MEDS: HYDROmorphone HCl 0.5 MG/0.5 ML SYRINGE IVPUSH (20:24)
--- NOTE | 2024-06-02 20:30 | PC.NURSE ---
pt is axox4 speaking full clear sentences. reports abd pain worsened after u/s d/t the pressure. pt medicated per jun and reports pain relieved immediately. ivf bag replaced, canceled order for 80mL/hr and stated to continue with 125ml/hr order. nad. pt now resting comfortably. call hartmann within reach.
[2024-06-03] MEDS: Lactated Ringers 1,000 ML 125 ML IVCONT (03:51)
[2024-06-03 03:52] VITALS: BP 128/83; PULSE 62; RESP 18; TEMP 36.6; O2SAT 97
--- NOTE | 2024-06-03 06:24 | PC.NURSE ---
Addendum entered by Sammie Thayer 06/03/24 06:39: pt has been tolerating clears overnight, drinking water and gingerale no nausea/vomiting noted. Original Note: pt woke up this morning saying she now has a dry cough and can't get warm. temp is 98.8F and sats 97% on RA. lung sounds cta. pt also reports 6/10 abd pain, reports pain previously resolved after receiving dilaudid iv as per jun. Olga RIZO made aware of all above.
[2024-06-03 06:25] VITALS: PULSE 75; RESP 16; TEMP 37.1; O2SAT 97
[2024-06-03 07:15] LABS: Glucose, Whole Blood 109 mg/dL (60-115)
[2024-06-03] MEDS: Pantoprazole Sodium 40 MG/10 ML VIAL IVPUSH ×2 (07:19→15:20)
[2024-06-03 08:01] LABS: Hematocrit 38.3 % (37.0-47.0); Hemoglobin 12.6 g/dl (12.0-16.0); Mean Corpuscular HGB Conc 32.9 g/dl (31.0-35.0); Mean Corpuscular Hemoglobin 30.7 pg (27.0-33.0); Mean Corpuscular Volume 93.4 fL (80.0-98.0); Mean Platelet Volume 8.7 fL (9.4-12.3); Platelet Count 396 X10*3/uL (160-400); Red Cell Distribution Width 12.2 % (11.0-16.0)
[2024-06-03] MEDS: Levothyroxine Sodium 125 MCG TABLET PO (08:08)
[2024-06-03 08:19] LABS: Anion Gap 16 (12-20); Blood Urea Nitrogen 7 mg/dL (9-16); Calcium 8.7 mg/dL (8.4-10.2); Carbon Dioxide 22 mmol/L (22-29); Chloride 104 mmol/L (96-108); Creatinine Clr Calc Pharmacy 67.7; Estimated Glomerular Filt Rate > 60; Glucose Random 181 mg/dL (60-115); Potassium 3.8 mmol/L (3.3-5.1); Sodium 138 mmol/L (135-145)
[2024-06-03] MEDS: Magnesium Oxide 400 MG TABLET PO (09:08)
[2024-06-03] MEDS: Atorvastatin Calcium 20 MG TABLET PO (09:08)
[2024-06-03] MEDS: Pyridoxine HCl (Vitamin B6) 50 MG TABLET 100 MG PO (09:08)
[2024-06-03] MEDS: Gabapentin 400 MG CAPSULE PO ×3 (09:09→21:07)
[2024-06-03 12:40] LABS: Glucose, Whole Blood 131 mg/dL (60-115)
--- NOTE | 2024-06-03 13:14 | PC.NURSE ---
pt asked to alert nurse when she next needs to have a BM so a stool sample can be collected
--- NOTE | 2024-06-03 13:38 | P.PNIM_ITS ---
Subjective Subjective Date of Service: 06/03/24 Interval History: f/u on intractable nausea, without vomitting much improved today Physical Exam 2 Vital Signs: Vital Signs: Last Vital Signs Temp 98.8 F 06/03/24 06:25 Pulse 75 06/03/24 06:25 Resp 16 06/03/24 06:25 BP 128/83 06/03/24 03:52 Pulse Ox 97 06/03/24 06:25 O2 Del Method Room Air 06/03/24 06:25 BMI result Body Mass Index 29.3 Const: Other: General: AO X 3, no acute distress Resp: CTA bilateral CVS: S1,S2,RRR GI: +BS, NT, no distention Skin: No rash Neuro: motor grossly intact Psych: appropriate affect Objective Data Active Medications Acetaminophen (Acetaminophen 325 Mg Tablet) 650 mg PO Q6H PRN PRN Reason: Pain, Mild 1-3,fever,headache Last Admin: 06/02/24 15:00 Dose: 650 mg Documented By: MADHURI Atorvastatin Calcium (Atorvastatin Calcium 20 Mg Tablet) 20 mg PO DAILY [facility] Last Admin: 06/03/24 09:08 Dose: 20 mg Documented By: MADHURI Calcium Carbonate (Calcium Carbonate 750 Mg Tab.Chew) 750 mg PO Q4H PRN PRN Reason: Heartburn Dextrose (Dextrose 50 % 25 Gm/50 Ml Syringe) 25 gm IVPUSH Q15M PRN; Protocol PRN Reason: per Hypoglycemia Standing Ord. Docusate Sodium (Docusate Sodium 100 Mg Capsule) 100 mg PO DAILY PRN PRN Reason: Constipation Enoxaparin Sodium (Enoxaparin Sodium 40 Mg/0.4 Ml Syringe) 40 mg SUBCUT Q24H [facility] Last Admin: 06/02/24 20:24 Dose: 40 mg Documented By: BRANDON Gabapentin (Gabapentin 400 Mg Capsule) 400 mg PO TID [facility] Last Admin: 06/03/24 09:09 Dose: 400 mg Documented By: MADHURI Glucose (Glucose Gel 15 Gm Gel..Gram.) 15 gm PO Q15M PRN; Protocol PRN Reason: per Hypoglycemia Standing Ord. Hydroxyzine HCl (Hydroxyzine Hcl 25 Mg Tablet) 25 mg PO BID PRN PRN Reason: Itching Lactated Ringer's (Lr) 1,000 mls @ 125 mls/hr IVCONT .Q8H [facility] Last Admin: 06/03/24 03:51 Dose: 125 mls/hr Documented By: BRANDON Insulin Human Lispro (Insulin Lispro 100 Unit/Ml 3 Ml Vial) 0 unit SUBCUT QIDACHS [facility]; Protocol Last Admin: 06/03/24 12:36 Dose: Not Given Documented By: MADHURI Non-Admin Reason: No Insulin Coverage Ipratropium [place] (Ipratropium [place] Rafita 0.06 % 15 Ml [place]) 2 spray NOSTRIL-B QID PRN PRN Reason: Allergy Symptoms Levothyroxine Sodium (Levothyroxine Sodium 125 Mcg Tablet) 125 mcg PO DAILY@0630 [facility] Last Admin: 06/03/24 08:08 Dose: 125 mcg Documented By: MADHURI Loratadine (Loratadine 10 Mg Tablet) 10 mg PO DAILY PRN PRN Reason: Allergy Symptoms Lorazepam (Lorazepam 0.5 Mg Tablet) 0.5 mg PO BID PRN PRN Reason: ANXIETY OR SLEEP Magnesium Hydroxide (Milk Of Magnesia 30 Ml Oral.Susp) 30 ml PO DAILY PRN PRN Reason: Constipation Magnesium Oxide (Magnesium Oxide 400 Mg Tablet) 400 mg PO DAILY [facility] Last Admin: 06/03/24 09:08 Dose: 400 mg Documented By: MADHURI Melatonin (Melatonin 3 Mg Tablet) 6 mg PO BEDTIME PRN PRN Reason: Insomnia Pantoprazole Sodium (Pantoprazole Sodium 40 Mg/10 Ml Vial) 40 mg IVPUSH BID@0630,1630 [facility] Last Admin: 06/03/24 07:19 Dose: 40 mg Documented By: MADHURI Polyethylene Glycol (Polyethylene Glycol 3350 17 Gm Powd.Pack) 17 gm PO DAILY PRN PRN Reason: Constipation Prochlorperazine Edisylate (Prochlorperazine Edisylate 10 Mg/2 Ml Vial) 5 mg IVPUSH Q6H PRN PRN Reason: Nausea and Vomiting Last Admin: 06/02/24 01:40 Dose: 5 mg Documented By: TIN Pyridoxine HCl (Pyridoxine Hcl (Vitamin B6) 50 Mg Tablet) 100 mg PO DAILY [facility] Last Admin: 06/03/24 09:08 Dose: 100 mg Documented By: MADHURI Sodium Chloride (0.9 % Sodium Chloride Flush 3 Ml Syringe) 3 ml IVFLUSH QSHIFT [facility] Last Admin: 06/03/24 07:30 Dose: Not Given Documented By: MADHURI Non-Admin Reason: IV Running Labs 06/03/24 07:50 06/03/24 07:50 Labs: Laboratory Results - last 24 hr 06/02/24 06/02/24 06/03/24 16:39 20:18 07:11 MCV MCH MCHC RDW Plt Count MPV Absolute Nucleated RBC Nucleated RBC % (auto) Anion Gap Estim Creat Clear Calc Estimated GFR POC Glucose 132 H 137 H 109 Random Glucose Calcium 06/03/24 06/03/24 07:50 12:33 MCV 93.4 MCH 30.7 MCHC 32.9 RDW 12.2 Plt Count 396 D MPV 8.7 L Absolute Nucleated RBC 0.000 Nucleated RBC % (auto) 0.0 Anion Gap 16 Estim Creat Clear Calc 67.7 Estimated GFR > 60 POC Glucose 131 H Random Glucose 181 H Calcium 8.7 D Assessment and Plan (1) Nausea: Status: Acute Plan A 74-year-old female with a past medical history of hypertension, hyperlipidemia, hypothyroidism, GERD, insulin-dependent type 2 diabetes, fibromyalgia, depression, and OCD, recently underwent cholecystectomy for acute cholecystitis and now presents with intractable nausea. Imaging revealed findings of gastritis and duodenitis on CT. She reports no vomiting and had some of these symptoms prior to her last admission for cholecystitis. Intractable nausea, cause unknown, better with IVF, PPI and antiemetics, wants regular diet DC IVF, PRN Antiemetics Advance to regular diet US showed no retained stone Duodenitis, gastritis IV PPI GI to consider EGD if symptoms persist Insulin-dependent type 2 diabetes mellitus SSI, Lantus on hold restart with regular meals Fibromyalgia Continue gabapentin Hypothyroidism Continue levothyroxine Mood disorder continue home medications when able to take orals Hyperlipidemia Continue statin when eating Full Code DVT Prophylaxis Lovenox Possible dc tomorrow Quality Stroke Does the patient have a stroke diagnosis?: No VTE Prior VTE?: No VTE Risk Level:: Medical - moderate - high VTE Device Contraindication: Treatment Not Indicated VTE Drug Contraindication: N/A - Med Ordered
[2024-06-03 14:57] VITALS: BP 152/66; PULSE 81; RESP 18; TEMP 36.8; O2SAT 100
--- NOTE | 2024-06-03 14:58 | PC.NURSE ---
pt reports no diarrhea or need for BM. states i might not need to go until tomorrow morning . pts diet has been upgraded. no nausea or vomiting during this shift. waiting meal tray from kitchen.
[2024-06-03] MEDS: 0.9 % Sodium Chloride Flush 3 ML SYRINGE IVFLUSH ×2 (15:11→22:02)
--- NOTE | 2024-06-03 15:24 | P.PNGI_ITS ---
Subjective Subjective Date of Service: 06/03/24 Interval History: nausea is much improved she wants to advance diet no abdominal pain still having diarrhea no vomiting Critical Care Time (minutes): 0 Physical Exam 2 Vital Signs: Vital Signs: Last Vital Signs Temp 98.3 F 06/03/24 14:57 Pulse 81 06/03/24 14:57 Resp 18 06/03/24 14:57 BP 152/66 H 06/03/24 14:57 Pulse Ox 100 06/03/24 14:57 O2 Del Method Room Air 06/03/24 14:57 BMI result Body Mass Index 29.3 EXAM: GENERAL: The patient is well developed and nontoxic. VITAL SIGNS:see workflow HEENT: Nonicteric sclerae, PERRLA, EOMI. Oropharynx clear. Moist mucous membranes. Conjunctivae appear well perfused. No thyroid mass. CHEST: Chest wall is nontender. HEART: Regular rate and rhythm without murmurs. LUNGS: Clear to auscultation bilaterally. ABDOMEN: Soft, positive bowel sounds, mildly tender epigastrium, no organomegaly.no flank tenderness SKIN: No rash, no excessive bruising, petechiae, or purpura. NEUROLOGIC: Cranial nerves II-XII intact without motor/sensory deficit. Psych: normal affect Objective Data Labs 06/03/24 07:50 06/03/24 07:50 Labs: Laboratory Results - last 24 hr 06/02/24 06/02/24 06/03/24 16:39 20:18 07:11 WBC RBC Hgb Hct MCV MCH MCHC RDW Plt Count MPV Absolute Nucleated RBC Nucleated RBC % (auto) Sodium Potassium Chloride Carbon Dioxide Anion Gap BUN Creatinine Estim Creat Clear Calc Estimated GFR POC Glucose 132 H 137 H 109 Random Glucose Calcium 06/03/24 06/03/24 07:50 12:33 WBC 9.0 RBC 4.10 L Hgb 12.6 Hct 38.3 MCV 93.4 MCH 30.7 MCHC 32.9 RDW 12.2 Plt Count 396 D MPV 8.7 L Absolute Nucleated RBC 0.000 Nucleated RBC % (auto) 0.0 Sodium 138 Potassium 3.8 Chloride 104 Carbon Dioxide 22 Anion Gap 16 BUN 7 L Creatinine 0.67 Estim Creat Clear Calc 67.7 Estimated GFR > 60 POC Glucose 131 H Random Glucose 181 H Calcium 8.7 D Procedures Date of Service Date of Service: 06/03/24 Progress Note: A&P Assessment and plan (1) Gastritis: Status: Acute Plan 1/ Gastritis, duodenitis, possible stress related due to recent ilness, no evidence of bleeding, feels better PLAN: 1/ If able to tolerate PO diet then can hold EGD, pls keep NPO after midnight just in case and advance diet for today 2/ cont with PPI and sucralfate Time Spent With Patient Time: Total time managing care of this patient today ____ minutes. Quality Stroke Does the patient have a stroke diagnosis?: No VTE Prior VTE?: No VTE Risk Level:: Medical - moderate - high VTE Device Contraindication: Treatment Not Indicated VTE Drug Contraindication: N/A - Med Ordered
[2024-06-03 17:33] LABS: Glucose, Whole Blood 173 mg/dL (60-115)
[2024-06-03] MEDS: Insulin Lispro 100 UNIT/ML 3 ML VIAL SUBCUT ×2 (18:45→21:07)
[2024-06-03] MEDS: Enoxaparin Sodium 40 MG/0.4 ML SYRINGE SUBCUT (18:46)
[2024-06-03 20:49] VITALS: BP 141/51; PULSE 86; RESP 16; TEMP 37.1; O2SAT 96
[2024-06-03 21:03] LABS: Glucose, Whole Blood 174 mg/dL (60-115)
[2024-06-03 21:30] VITALS: BP 148/58; PULSE 84; RESP 18; TEMP 37.2; O2SAT 96
[2024-06-03 21:40] VITALS: BMI 30.3
[2024-06-03] MEDS: Acetaminophen 325 MG TABLET 650 MG PO (23:15)
[2024-06-04 05:08] VITALS: BP 138/65; PULSE 79; RESP 18; TEMP 37.2; O2SAT 97
[2024-06-04] MEDS: Pantoprazole Sodium 40 MG/10 ML VIAL IVPUSH (06:31)
[2024-06-04] MEDS: Levothyroxine Sodium 125 MCG TABLET PO (06:31)
[2024-06-04] MEDS: Acetaminophen 325 MG TABLET 650 MG PO (06:38)
[2024-06-04 07:12] VITALS: BP 136/63; PULSE 73; RESP 16; TEMP 36.7; O2SAT 95
[2024-06-04 07:27] LABS: Glucose, Whole Blood 137 mg/dL (60-115)
[2024-06-04] MEDS: 0.9 % Sodium Chloride Flush 3 ML SYRINGE IVFLUSH (08:55)
[2024-06-04] MEDS: Gabapentin 400 MG CAPSULE PO (08:56)
[2024-06-04] MEDS: guaiFENesin 100 MG/5 ML 5 ML LIQUID PO (08:56)
[2024-06-04] MEDS: Pyridoxine HCl (Vitamin B6) 50 MG TABLET 100 MG PO (08:56)
[2024-06-04] MEDS: Magnesium Oxide 400 MG TABLET PO (08:56)
[2024-06-04] MEDS: Atorvastatin Calcium 20 MG TABLET PO (08:56)
[2024-06-04 09:22] LABS: Anion Gap 13 (12-20); Blood Urea Nitrogen 7 mg/dL (9-16); Calcium 8.3 mg/dL (8.4-10.2); Carbon Dioxide 27 mmol/L (22-29); Chloride 102 mmol/L (96-108); Creatinine Clr Calc Pharmacy 73.2; Estimated Glomerular Filt Rate > 60; Glucose Random 139 mg/dL (60-115); Potassium 3.3 mmol/L (3.3-5.1); Sodium 139 mmol/L (135-145)
--- NOTE | 2024-06-04 11:20 | PM.DS ---
DS: Providers Provider Date of Service: 06/04/24 Date of admission: 06/01/24 18:16 Date of discharge: 06/04/24 Primary care physician: Jaye Ortega MD Consults: 06/01/24 18:24 Consult to Gastroenterology Routine Consulting Provider: Artur Russo Reason for consultation: gastritis, duodenitis 06/03/24 21:59 Consult to Wound Care Routine Reason for consultation: blanchable redness to buttocks DS: Diagnosis Discharge Diagnosis (1) Gastritis: Status: Acute DS: Summary Hospital Course Hospital Course: Chief Complaint: n/v A 74-year-old female with a past medical history of hypertension, hyperlipidemia, hypothyroidism, GERD, insulin-dependent type 2 diabetes, fibromyalgia, depression, and OCD. She was admitted on 05/24 for acute cholecystitis, underwent cholecystectomy, and was discharged home on 05/27. She presents again due to intractable nausea, without vomiting, and an inability to keep oral intake. A CT scan reveals somewhat prominent thickening along the gastric pylorus and proximal duodenum, with distal gastritis/duodenitis suspected. No perforation or free air identified. In the ED, she received IVF, Reglan, Zofran, and IV Protonix but continues to experience symptoms. She has been admitted for symptom control and further GI evaluation. Hospital course: The patient presented with nausea and vomiting. She had recently been admitted for cholecystitis and underwent a cholecystectomy ([facility]). A CT of the abdomen and pelvis revealed gastritis and duodenitis. She was treated with IV Protonix, IV fluids, and antiemetics, which resulted in rapid improvement of her symptoms. Gastroenterology evaluated her and recommended an EGD if she did not improve. However, at this time, she will follow up with GI on an outpatient basis. Time Attestation Discharge Coordination Time (in mins): 35 Quality: Safe Use of Opioids Does Pt have an Active Cancer Diagnosis on the Problem List?: No Quality: Stroke Does the patient have a stroke diagnosis?: No Physical Exam Vital Signs: Vital Signs: Last Vital Signs Temp 98.1 F 06/04/24 07:12 Pulse 73 06/04/24 07:12 Resp 16 06/04/24 07:12 BP 136/63 06/04/24 07:12 Pulse Ox 95 06/04/24 07:12 O2 Del Method Room Air 06/04/24 07:12 BMI result Body Mass Index 30.3 General: AO X 3, no acute distress Resp: CTA bilateral CVS: S1,S2,RRR GI: +BS, NT, no distention Skin: No rash Neuro: motor grossly intact Psych: appropriate affect DS: Data Data Completed and Pending Labs on day of discharge: Laboratory Results - last 24 hr 06/03/24 06/03/24 06/03/24 12:33 17:30 20:59 Hold Purple Top Sodium Potassium Chloride Carbon Dioxide Anion Gap BUN Creatinine Estim Creat Clear Calc Estimated GFR POC Glucose 131 H 173 H 174 H Random Glucose Calcium 06/04/24 06/04/24 07:17 07:55 Hold Purple Top SEE NOTE Sodium 139 Potassium 3.3 Chloride 102 Carbon Dioxide 27 Anion Gap 13 BUN 7 L Creatinine 0.63 Estim Creat Clear Calc 73.2 Estimated GFR > 60 POC Glucose 137 H Random Glucose 139 H Calcium 8.3 L Discharge Plan Discharge Anticipated Discharge Date/Time: 06/04/24 11:27 Patient Disposition: Home, Self-Care Discharge Diagnosis: Intractable nausea, duodenitis Referrals: Jaye Ortega MD [Primary Care Provider] - 1 Week Artur Russo MD [Physician] - 2 Weeks Discharge Medications: New pantoprazole [Protonix] 40 mg tablet,delayed release (DR/EC) 40 mg PO DAILY Qty: 90 0RF guaifenesin 100 mg/5 mL Liquid 100 mg PO Q4H PRN (Reason: Cough) Qty: 1000 0RF Continued (DME) OneTouch Ultra Test Strip See Rx Instructions .Route Qty: 100 2RF Rx Instructions: check BS 2-3x/day gabapentin 400 mg capsule 400 mg PO TID 30 Days Qty: 90 1RF simvastatin 40 mg tablet 40 mg PO BEDTIME Qty: 90 0RF levothyroxine 125 mcg tablet 125 mcg PO DAILY@0630 Qty: 90 1RF magnesium oxide 400 mg (241.3 mg magnesium) tablet 400 mg PO DAILY Qty: 30 0RF diclofenac sodium 75 mg tablet,delayed release (DR/EC) 75 mg PO BID PRN (Reason: Pain) hydroxyzine pamoate 25 mg capsule 25 mg PO BID PRN (Reason: Itching) omeprazole 40 mg capsule,delayed release(DR/EC) 40 mg PO DAILY@0630 acetaminophen 325 mg Tablet 650 mg PO Q6H PRN (Reason: Pain, Mild 1-3,Fever,Headache) Qty: 30 0RF insulin glargine [Basaglar KwikPen U-100 Insulin] 100 unit/mL (3 mL) insulin pen 46 unit subcut DAILY ipratropium bromide 42 mcg (0.06 %) spray,non-aerosol 2 spray intranasal QID PRN (Reason: Allergy Symptoms) lorazepam 0.5 mg tablet 0.5 - 1 mg PO BID PRN (Reason: ANXIETY OR SLEEP) aspirin [Adult Aspirin Regimen] 81 mg tablet,delayed release (DR/EC) 81 mg PO BEDTIME biotin 1 mg capsule 1 mg PO DAILY omega 4-yly-lza-fish oil [Fish Oil] 1,000 mg (120 mg-180 mg) capsule 1 cap PO DAILY PRN (Reason: supplemnt) levocetirizine [Xyzal] 5 mg tablet 5 mg PO DAILY PRN (Reason: Allergy Symptoms) (DME) OneTouch Ultra Test Strip See Rx Instructions Not Applicable TID Qty: 10 Rx Instructions: As directed docusate sodium [Colace] 100 mg capsule 100 mg PO DAILY PRN (Reason: Constipation) pyridoxine (vitamin B6) 100 mg tablet 100 mg PO DAILY 90 Days Qty: 90 3RF Discharge Orders: Discharge Order (Routine); Ordered 06/04/24 Ordered By: Jj Murphy Diet: Advance to usual diet Activity on Discharge: As tolerated Stand Alone Forms: Patient Portal Discharge page Print Language: [place] Care Plan Goals: recovery from duodenitis, gastritis, nausea, Health Concerns: gastritis duodenitis nauseas, resolved Plan of Treatment: Take Protonix as directed follow up with Dr. Russo Assessment: See above
[2024-06-04 11:30] LABS: Glucose, Whole Blood 139 mg/dL (60-115)
--- NOTE | 2024-06-04 11:40 | MHC.CM.PN ---
IMM 06/02/24 Patient discharged today with resumption of [facility]. She has arranged for transportation home.
--- NOTE | 2024-06-04 13:44 | P.CDIM_ITS ---
PROVIDER RESPONSE TEXT: To clarify, the appropriate diagnosis supported by the clinical indicators: Acute: erosive QUERY TEXT: PHYSICIAN'S DOCUMENTATION REQUEST Date of Query: 06/03/2024 10:54 AM EST Patient Name: Lizzette Steiner Admit Date: 06/01/2024 Dear Jj Murphy MD, A review of the medical record indicates additional documentation may be needed. Please review below and update the documentation accordingly. Clinical Indicators: Progress note 3/2 - Duodenitis, Gastritis IV PPI Intractable nausea. CT scan reveals somewhat prominent thickening along the gastric pylorus and proximal duodenum, with d istal gastritis/duodenitis suspected. GI consult 3/2- Nausea possibly due to gastritis and duodenitis. Clarify which of the following accurately represents the acuity and any further specifics for the carol ann gnosis of Gastritis, if known: Possible options might include: Acute erosion of stomach, bleeding etc. Chronic atrophic, superficial etc. Other (explain) Clinically unable to determine (explain) Thank you, Kassidy Sanz, CCS, CDIS Use of terms such as suspected, likely, concern for, or probable (associated with a specific diagnosi s that is being evaluated, monitored, or treated as if it exists) are acceptable and can be coded in the inpatient se tting, when documented at the time of discharge. Please use your independent medical judgment in providing your response. THIS QUERY IS PART OF THE PERMANENT MEDICAL RECORD
== END 2024-06-04 13:31 | disposition home or self-care (01) | DRG 392 ==
LOC: HO.ED 17:00 → HO.EDOVER 18:25 → HO.S3 06-03 19:12
PROVIDERS: Admitting Provider Internal Medicine; Emergency Provider Emergency Medicine; PCP Hospitalist; Visit Provider Internal Medicine
DX: K29.00 Acute gastritis without bleeding (principal); K29.80 Duodenitis without bleeding; E03.9 Hypothyroidism, unspecified; E11.9 Type 2 diabetes mellitus without complications; M79.7 Fibromyalgia; E78.5 Hyperlipidemia, unspecified; F39 Unspecified mood [affective] disorder; Z20.822 Contact with and (suspected) exposure to COVID-19; Z79.4 Long term (current) use of insulin; Z79.82 Long term (current) use of aspirin; Z79.890 Hormone replacement therapy; Z79.899 Other long term (current) drug therapy
CPT/HCPCS: 0241U; 36415; 74177; 76705; 80048; 80053; 81001; 82947; 83690; 84484; 85025; 85027; 86140; 93005; 99285; J0737; J1171; J1650; J2470; J2765; J7120; Q9967

== ENCOUNTER → 2024-06-01 14:08 | Outpatient (BNV) | payer MEDICARE, OTHER, SELFPAY | PROVIDERS: Admitting Provider Internal Medicine; Emergency Provider Emergency Medicine; PCP Hospitalist; Visit Provider Internal Medicine Cardiovascular Disease | DX: R94.31 Abnormal electrocardiogram [ECG] [EKG] (principal); R53.1 Weakness | CPT/HCPCS: 93010 ==

== ENCOUNTER → 2024-06-01 14:19 | Outpatient (BNV) | payer MEDICARE, OTHER, SELFPAY | PROVIDERS: Emergency Provider Emergency Medicine; PCP Hospitalist; Visit Provider Radiology Vascular & Interventional Radiology | DX: K29.70 Gastritis, unspecified, without bleeding (principal) | CPT/HCPCS: 74177 ==

== ENCOUNTER 2024-06-01 18:16 | Outpatient (BNV) | payer MEDICARE, OTHER, SELFPAY | END 2024-06-02 13:30 | PROVIDERS: Admitting Provider Internal Medicine; Emergency Provider Emergency Medicine; PCP Hospitalist; Visit Provider Radiology Vascular & Interventional Radiology | DX: R10.9 Unspecified abdominal pain (principal) | CPT/HCPCS: 76705 ==

== ENCOUNTER → 2024-06-01 18:16 | Outpatient (BNV) | payer MEDICARE, OTHER, SELFPAY | PROVIDERS: Admitting Provider Internal Medicine; Emergency Provider Emergency Medicine; PCP Hospitalist; Visit Provider Internal Medicine | DX: R11.0 Nausea (principal) | CPT/HCPCS: 99222; 99232 ==

== ENCOUNTER → 2024-06-01 18:16 | Outpatient (BNV) | payer MEDICARE, OTHER, SELFPAY | PROVIDERS: Admitting Provider Internal Medicine; Emergency Provider Emergency Medicine; PCP Hospitalist; Visit Provider Internal Medicine Gastroenterology | DX: R11.0 Nausea (principal) | CPT/HCPCS: 99223 ==

== ENCOUNTER 2024-06-13 13:26 | Outpatient (AMB) | payer MEDICARE, OTHER, SELFPAY ==
--- NOTE | 2024-06-13 13:32 | A.OFFVIS_ITS ---
Vital Signs 06/13/24 13:37 Height 5 ft 2 in Weight 165 lb 12.602 oz BMI 30.3 Intake Visit Reasons: s/p Acute cholecystitis Intake Note: This patient presents for post-op assessment status post laparoscopic cholecystectomy. Pt c/o; reports no complaints pertaining to surgery. 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: No Accompanied by: Family/Other Allergies codeine [Codeine] Allergy (Unknown, Verified 06/13/24 13:38) NAUSEA AND VOMITING, nausea pregabalin Allergy (Unknown, Verified 06/13/24 13:38) Confusion rosuvastatin [Crestor] Allergy (Unknown, Verified 06/13/24 13:38) joint pain NSAIDS (Non-Steroidal Anti-Inflamma Allergy (Verified 06/13/24 13:38) Swelling oxycodone [From OxyContin] Allergy (Verified 06/13/24 13:38) Itching [place] Insulin Allergy (Unknown, Uncoded 06/13/24 13:38) severe itching tapes, adhesives, tegaderm, st Allergy (Unknown, Uncoded 06/13/24 13:38) rash wellbutrin Allergy (Unknown, Uncoded 06/13/24 13:38) rash lexapro Adverse Reaction (Severe, Uncoded 06/13/24 13:38) lethargic HPI HPI s/p Acute cholecystitis: Details: 74 year old female here for postop visit. She had undergone laparoscopic cholecystectomy as an inpatient for purulent cholecystitis last 05/31/2024. She was discharged on postop day 3. She is doing well at home. She has good oral intake and denies significant complaints. [facility] Medical History Bilateral cataracts Schizoaffective disorder Confusion Skin rash Vitamin D deficiency HTN (hypertension) HLD (hyperlipidemia) Cellulitis of leg, left Skin excoriation Urinary urgency Encounter to establish care Arthralgia of shoulder region, left Cervical spondylitis with radiculitis Myofascial pain on left side Depression OCD (obsessive compulsive disorder) DJD (degenerative joint disease) SI (sacroiliac) joint dysfunction Fibromyalgia GERD (gastroesophageal reflux disease) Neuropathy Diabetes Surgical History History of laparoscopic cholecystectomy (~05/24/24) H/O mastectomy Hx of appendectomy H/O exploratory laparotomy History of surgery Family History Father No problems noted. Mother No problems noted. Social History Household Members: Spouse Household Members Other:: 1 Housing: House Do you presently have visiting nurse or other home services: No Alcohol intake: former Comment: SI 1:1 Patient Tobacco Use Status: Never used Tobacco Tobacco use type: Cigarette e-Cigarette/Vaping Use: Never Used Second Hand Smoke Exposure: No Advance Directives Date on File: 06/01/24 service: No Current occupational status: retired Cognitive needs: Yes (cane) Hearing needs: Yes (hearing aide) Vision needs: Yes (glasses) Review of Systems Const Denies chills and Denies fever(s) Card Denies chest pain Resp Denies cough GI Denies abdominal pain and Denies vomiting Physical Exam Vital Signs: BMI result Body Mass Index 30.3 Const Other: Walks with a cane General: comfortable and no acute distress Eyes Other: anicteric sclerae Resp Effort & Inspection: normal respiratory effort GI Other: all incisions well healed Palpation (GI): Soft to palpation, not firm, nontender and no guarding Assessment & Plan Assessment & Plan (1) S/P laparoscopic cholecystectomy: Code(s): Z90.49 - Acquired absence of other specified parts of digestive tract Category: Surgical Plan: She continues to do well postoperatively. All incisions are well healed. She has good oral intake I advised her to avoid lifting anything more than 20 lb for about 2 more weeks. She can otherwise follow up on a p.r.n. basis. Coding Level of Care Code Global (68510) Diagnoses S/P laparoscopic cholecystectomy Z90.49
[2024-06-13 13:37] VITALS: BMI 30.3
--- OUTSIDE RECORDS SUMMARY | 2024-06-13 17:00 | XMS_ITS ---
Demographics Address [address] [place] [address] Email Address Preferred Language en Marital Status Cheondoism Affiliation Unknown Race White Ethnic Group Not or Lati no Author Organization [facility] Address [address] [place] [address] Support Name Relationship Address Phone Rigo Jin Emergency Contact [address] [place], [place] [id number] Lizzette Mosquera Guarantor Unknown Care Team Providers Care Rn Orthopaedics Name Role Phone Noah Ortega Primary Care Provider Cedric Rueda Unavailable [phone] Allergies Allergen (clinical drug ingredient) Drug/Non Drug [...] Polyneuropathy due to type 2 diabetes mellitus ([id number]) Type 2 diabetes mellitus with diabetic polyneuropathy (E11.42) Active confirmed Vital Signs Height 5 ft 1 in in 06/07/2023 Weight 155 lbs 06/07/2023 BMI 29.28 kg/m2 06/07/2023 Encounters Encounter Location Date Provider Diagnosis [facility] [address] [place] [address] 06/07/2023 Cedric Sosa Type 2 diabetes mellitus [...] as necessary. Patient chooses, no pharmaceutical tx (19140) Progress Notes * Lizzette MOSQUERA LDOB:1950 (73 yo F)Acc No.[id number]:06/07/2023 Progress Notes Patient:?Lizzette Mosquera Provider:?Cedric Sosa DPM :1950???Age:73 Y???Sex:Female D ate:06/07/2023 Address: [address] [facility] Pcp:Noah Ortega Subjective: * Chief Complaints: * [...] 5.5 * Examination: ???Ophthalmology Referral: ?DIABETES EYE EXAM?Diabetic Retinopathy Screening:?Yes 04/2023 ?Findings of Diabetic Eye Exam:?no retinopathy?Neurological: ?SENSORY:? Neurological exam demonstrates, reduced vibration sensation, [...] and in no acute distress.?ORIENTED:?person,place, and time.?FOOT EXAM:?Lower Extremity Neurological Exam performed:?Yes ?Visual exam of foot performed:?Yes ?Date?06/07/2023 ?Sensory testing performed:?sensations diminished ?Pedal pulse taking performed:?absent?Neuroma Pain: ?PALPATION:?No interspace pain noted on palpation.?Orthopedic: [...] as necessary. Patient chooses, no pharmaceutical tx (73243).? * Procedure Codes:?55779 DEBRI DE NAIL, 6 OR MORE, Modifiers: [...] Provider:?Cedric Sosa DPM Date:? 024 Generated for Printi ng/Faelizabethg/eTransmitting on:?06/13/2024 05:00 PM EDT History and Physical Notes * HPI (History of Present Illness) Category Sub-Category Detail Notes Category Not es At Risk footcare Pt States Last PCP Visit: Date: Foot Pain Onset/Cause: unknown Course: worse Duration: [...]
--- OUTSIDE RECORDS SUMMARY | 2024-06-13 17:01 | XMS_ITS ---
Demographics Address [address] [place], [place] Mobile Email Address Preferred Language en Marital Status Unknown Episcopal Affiliation Unknown Race White Ethnic Group Unknown Author Organization [facility] Address [address] [address] Care Team Providers Care Wholesale Agronomist Name Role Phone CARYN CALABRESE Primary Care Provider REASON FOR VISIT Jenniffer Sandoval Admission forms Encounters Encounter Location Date Provider Diagnosis [facility] [address] [facility] [address] [place] [address] 06/10/2024 CARYN CALABRESE Plan Of Treatment No Information Progress Notes * Edda MOSQUERA:[birth year] (74 yo F)Acc No.[id number]:06/10/2024 Patient:?Lizzette MOSQUERA :1950???Age:74 Y???Sex:Female Address:[address] [place], [place] * * Date:?
--- OUTSIDE RECORDS SUMMARY | 2024-06-13 17:01 | XMS_ITS ---
Demographics Address [address] [place] [address] Email Address Preferred Language en Marital Status Tenriism Affiliation Unknown Race White Ethnic Group Not or Lati no Author Organization [facility] Address [address] [place] [address] Support Name Relationship Address Phone Rigo Jin Emergency Contact [address] [place], [place] [phone] Lizzette Mosquera Guarantor Unknown Care Team Providers Care Laundry Tech Name Role Phone Noah Ortega Primary Care Provider Cedric Rueda [phone] REASON FOR VISIT COMMUNICATIONS CONTROLLER PPWK Entered Encounters Encounter Location Date Provider Diagnosis [facility] [address] [place] [address] 04/21/2023 Cedric Sosa Plan Of Treatment No Information Progress Notes * Lizzette MOSQUERA LDOB:1950 (72 yo F)Acc No.[id number]:04/21/2023 Patient:?Obdulia Lizzette Ford :1950???Age:72 Y???Sex:Female Address:[address] [place] [address] * true * Date:? Generated for Ruthi nancy/Charis/eTransmitting on:?06/13/2024 05:01 PM EDT
--- OUTSIDE RECORDS SUMMARY | 2024-06-13 17:01 | XMS_ITS | Clinical Summary ---
Demographics Address [address] [place] [address] Home Phone Email Address Preferred Language Azeri Marital Status Mandaen Affiliation Unknown Race White Ethnic Group Not or Lati no Author Organization [facility] Address [address] [place] [id number] Support Name Relationship Address Phone Rigo Steiner Emergency Contact [address] [facility] [place] [address] Care Team Providers Care Md Urologist Name Role Phone Obi Miller MD Primary Care Provider [phone] Allergies Active Allergy Reactions Criticality Noted Date [...] Lizzette Steiner Personal/Family Self 1950 [address] [place] [address] Care Teams Md Urologist Relationship Specialty Start Date End Date Obi Miller MD [address] [place] [id number] PCP - General Internal Medicine 01/31/18
--- OUTSIDE RECORDS SUMMARY | 2024-06-13 17:01 | XMS_ITS ---
Demographics Address [address] [place] [address] Mobile Email Address Preferred Language en Marital Status Unknown Anabaptist Affiliation Unknown Race White Ethnic Group Unknown Author Organization [facility] Address [address] [facility] [address] [place] [address] Care Team Providers Care Hospital Nurse Liaison Name Role Phone DEMARCUSCARYN Ford Primary Care Provider [phone] Ángel Box Unavailable [phone] Allergies Allergen (clinical drug ingredient) Drug/Non Drug Allergy documented on EMR Reaction Allergy Type Onset Date Status Adhesive Unknown Allergy Active codeine Codeine Unknown Drug Allergy Active oxycodone Oxycodone Unknown Drug Allergy Active Reason For Referral Reason [facility], Dr. Garces an Diagnosis 1 Gastro-esophageal re flux disease with esophagitis, without bleeding (K21.00) Diagnosis 2 Gastritis and duoden itis (K29.90) Referral Organization [facility] Gabino Cisneros Referring Provider First Name Ángel Referring Provider Last Name Isauro Referring Provider Speciality Internal M edicine Referred Provider Specialty Gastroentero logy General Notes Referral faxed. Yolanda light call patient to schedule appointment.Danielle Shannon 06/12/2024 10:42:59 AM > Referral Priority Routine REASON FOR VISIT [facility]; Notes Scanned Medications Medication SIG (Take, Route, Frequency, Duration) Notes Start Date End Date Status Colace 100 MG 1 capsule as needed Orally Once a day Active Xyzal Allergy 24HR 5 MG 1 tablet in the evening Orally Once a day Active Acetaminophen ER 650 MG 2 tablets as needed Orally every 8 hrs Active Lasix 20 MG 1 tablet Orally Once a day Active Omeprazole 40 MG 1 capsule 30 minutes before morning meal Orally Once a day Active Vitamin D3 50 MCG (2000 UT) 1 tablet Orally Once a day Active Vitamin B6 100 MG 1 tablet Orally Once a day Active Pantoprazole Sodium 40 MG 1 tablet 1/2 to 1 hour before morning meal Orally Once a day Active ZyrTEC Allergy 10 MG 1 tablet Orally Onc e a day Not-Taking guaiFENesin 100 MG/5ML as directed Orally Active Fish Oil 1000 MG 1 capsule Orally Once a day Not-Taking NexIUM 40 MG 1 capsule Orally Once a day for 30 days 02/10/2023 Not-Taking Cymbalta 30 MG 1 capsule Orally 2 times a day 03/28/2023 Not-Taking Sucralfate 1 GM 1 tablet on an empty stomach Orally Twice a day for 30 days 02/10/2023 Not-Taking Centrum Silver - as directed Orally Not-Taking Ondansetron HCl 4 MG 1 tablet Orally twice a day for 15 days 05/22/2024 Active Latuda 20 MG 1 tablet in the evening with food Orally Once a day Not-Taking traMADol HCl 50 MG 1/2 tablet Orally Once a day for 5 days 04/03/2024 Active Magnesium 400 MG 1 capsule Orally once a day for 30 days Active traMADol HCl 25 MG as directed Orally once a day for 5 days 04/03/2024 Active Womplyuch Ultra Blue - Use 2-3 times a da y In Vitro for 90 days 10/27/2023 Active Gabapentin 400 MG TAKE 1 CAPSULE BY MOUTH 3 TIMES A DAY FOR 30 DAYS for 30 Active Diclofenac Sodium 75 MG 1 tablet Orally Twice a day for 30 days Active Fluocinolone Acetonide 0.025 % 1 application Externally Twice a day for 30 days 03/15/2024 Active Fluocinolone Acetonide 0.025 % APPLY AM AND PM TO VAGINAL/ANAL AREA TWICE WEEKLY (MONDAY & MONDAY) FOR 2 WEEKS. THEN STARTING WEEK 3 USE AM & PM MONDAY, MONDAY, MONDAY UNTIL APPOINTMENT for 21 Active BD Pen Needle Short U/F 31G X 8 MM use to inject insulin daily dx: E08.40 for 30 days 12/18/2023 Active [facility] Glucose Meter Test Strips - as directed 3 times a day for 90 days e11.9 Active Levothyroxine Sodium 125 MCG 1 tablet in the morning on an empty stomach Orally Once a day for 90 days Active Simvastatin 40 MG 1 tablet in the evening Orally Once a day for 90 days Active Basaglar KwikPen 100 UNIT/ML 50 units Subcutaneous once a day for 30 days Active hydrOXYzine HCl 25 MG 1 tablet as needed Orally Once a day for 30 days Active Lidoderm 5 % 1 patch remove after 12 hours Externally Once a day 06/13/2023 Active Aspirin Adult Low Dose 81 MG 1 tablet Orally Once a day Active LORazepam 0.5 MG 1 tablet Orally daily prn & [address] Gennaro Chow Active Problems Problem Type SNOMED Code ICD Code Onset Dates Problem Status W/U Status Risk Notes Problem Gastroesophageal reflux disease with esophagitis (disorder) (758177617) Gastro-esoph ageal reflux disease with esophagitis, without bleeding (K21.00) Active confirmed Vital Signs Temperature 97.3 degrees Fahrenheit 06/12/19 25 Oximetry 97 % 06/11/2024 Heart Rate 92 /min 06/11/2024 Blood pressure systolic 130 mm Hg 06/12/19 25 Blood pressure diastolic 84 mm Hg 025 Weight 160 lbs 06/11/2024 BMI 30.23 kg/m2 06/11/2024 Height 5'1 in 06/11/2024 Encounters Encounter Location Date Provider Diagnosis [facility] [address] [address] 06/11/2024 [place] Schizoaffective diso rder, depressive type F25.1 ; Hospital discharge follow-up Z09 ; Generalized anxiety disorder F41.1 ; Diabetes mellitus due to underlying condition with hyperglycemia E08.65 and Gastro-esophageal reflux disease with esophagitis, without bleeding K21.00 Assessments Encounter Date Diagnosis (ICD Code) Assessment Notes Treatment Notes Treatment Clinical Notes Section Notes 06/11/2024 Schizoaffective disorder, depressive type (ICD-10 - F25.1) 74 years old lady With insulin-dependent DM type II, hypertension, hyperlipidemia, hypothyroidism generalized anxiety disorder, acid reflux schizoaffective disorder who was admitted to [facility] for acute cholecystitis status post cholecystectomy readmitted for nausea vomiting epigastric pain and dehydration and is here today for a follow-up visit.I reviewed all the reports lab work procedure notes from [facility] discharge paperwork and discussed it with the patient Post discharge Hospital follow-up 14 days she is feeling much better, she was diagnosed with severe GERD and was started on a PPI Protonix 40 mg daily she was seen by GI Dr. Russo was planning to follow-up as an outpatient. Review patient's medications she is on above results I discussed with the patient that she does not have to take omeprazole and Protonix together she wants to continue till she sees GI. history of anxiety and depression,r patient is off all medications and is in the process of getting a new psychiatrist Plan of care was discussed in detail with patient and her family was present in the room today,they are also requesting paperwork for getting an independent/assist ed living. 06/11/2024 Hospital discharge follow-up (ICD-10 - Z09) 74 years old lady With insulin-dependent DM type II, hypertension, hyperlipidemia, hypothyroidism generalized anxiety disorder, acid reflux schizoaffective disorder who was admitted to [facility] for acute cholecystitis status post cholecystectomy readmitted for nausea vomiting epigastric pain and dehydration and is here today for a follow-up visit.I reviewed all the reports lab work procedure notes from [facility] discharge paperwork and discussed it with the patient Post discharge Hospital follow-up 14 days she is feeling much better, she was diagnosed with severe GERD and was started on a PPI Protonix 40 mg daily she was seen by VILMA Russo was planning to follow-up as an outpatient. Review patient's medications she is on above results I discussed with the patient that she does not have to take omeprazole and Protonix together she wants to continue till she sees GI. history of anxiety and depression,r patient is off all medications and is in the process of getting a new psychiatrist Plan of care was discussed in detail with patient and her family was present in the room today,they are also requesting paperwork for getting an independent/assist ed living. 06/11/2024 Generalized anxiety disorder (ICD-10 - F41.1) 74 years old lady With insulin-dependent DM type II, hypertension, hyperlipidemia, hypothyroidism generalized anxiety disorder, acid reflux schizoaffective disorder who was admitted to [facility] for acute cholecystitis status post cholecystectomy readmitted for nausea vomiting epigastric pain and dehydration and is here today for a follow-up visit.I reviewed all the reports lab work procedure notes from [facility] discharge paperwork and discussed it with the patient Post discharge Hospital follow-up 14 days she is feeling much better, she was diagnosed with severe GERD and was started on a PPI Protonix 40 mg daily she was seen by VILMA Russo was planning to follow-up as an outpatient. Review patient's medications she is on above results I discussed with the patient that she does not have to take omeprazole and Protonix together she wants to continue till she sees GI. history of anxiety and depression,r patient is off all medications and is in the process of getting a new psychiatrist Plan of care was discussed in detail with patient and her family was present in the room today,they are also requesting paperwork for getting an independent/assist ed living. 06/11/2024 Diabetes mellitus due to underlying condition with hyperglycemia (ICD-10 - E08.65) 74 years old lady With insulin-dependent DM type II, hypertension, hyperlipidemia, hypothyroidism generalized anxiety disorder, acid reflux schizoaffective disorder who was admitted to [facility] for acute cholecystitis status post cholecystectomy readmitted for nausea vomiting epigastric pain and dehydration and is here today for a follow-up visit.I reviewed all the reports lab work procedure notes from [facility] discharge paperwork and discussed it with the patient Post discharge Hospital follow-up 14 days she is feeling much better, she was diagnosed with severe GERD and was started on a PPI Protonix 40 mg daily she was seen by GI Dr. Russo was planning to follow-up as an outpatient. Review patient's medications she is on above results I discussed with the patient that she does not have to take omeprazole and Protonix together she wants to continue till she sees GI. history of anxiety and depression,r patient is off all medications and is in the process of getting a new psychiatrist Plan of care was discussed in detail with patient and her family was present in the room today,they are also requesting paperwork for getting an independent/assist ed living. 06/11/2024 Gastro-esophageal reflux disease with esophagitis, without bleeding (ICD-10 - K21.00) 74 years old lady With insulin-dependent DM type II, hypertension, hyperlipidemia, hypothyroidism generalized anxiety disorder, acid reflux schizoaffective disorder who was admitted to [facility] for acute cholecystitis status post cholecystectomy readmitted for nausea vomiting epigastric pain and dehydration and is here today for a follow-up visit.I reviewed all the reports lab work procedure notes from [facility] discharge paperwork and discussed it with the patient Post discharge Hospital follow-up 14 days she is feeling much better, she was diagnosed with severe GERD and was started on a PPI Protonix 40 mg daily she was seen by GI Dr. Russo was planning to follow-up as an outpatient. Review patient's medications she is on above results I discussed with the patient that she does not have to take omeprazole and Protonix together she wants to continue till she sees GI. history of anxiety and depression,r patient is off all medications and is in the process of getting a new psychiatrist Plan of care was discussed in detail with patient and her family was present in the room today,they are also requesting paperwork for getting an independent/assist ed living. Plan Of Treatment Referrals Referral Date Details 06/11/2024 06/11/2024, Grzegorz ESPARZA, Dr. Russo Progress Notes * Pete MOSQUERAaDOB:[birth year] (74 yo F)Acc No.[id number]:06/11/2024 Patient:?Lizzette MOSQUERA Provider:?Ángel Box :1950???Age:74 Y???Sex:Female D ate:06/11/2024 Address[address] [facility], [id number] Pcp:CARYN CALABRESE Subjective: * Chief Complaints: * ???[facility]; Notes S canned * HPI: ???Internal Medicine:?Ms. Mosquera is 74? years old lady With insulin-dependent DM type II, hypertension, hyperlipidemia, hypothyroidism generalized anxiety disorder, acid reflux? schizoaffective disorder who is here today for a post hospital discharge follow-up.? She was admitted to [facility] and discharged on 06/01/24 for severe epigastric pain and gastritis.? She was initially admitted in 05/23/24 and had a cholecystectomy done for recurrent abdominal pain and nausea.? She was discharged on a 05/24/24 after a few days she developed epigastric pain and severe nausea and could not keep anything down.? She was readmitted to [facility]. She was seen by GI and was given PPIs with significant improvement in her symptoms with plan for outpatient follow-up and a possible endoscopy.? she has no other new complaints she also reports that she has been off all her psych medication and is feeling great.? She is more alert has better appetite and her mood is also better. * ROS:?General/Constitutional:?Patient denies?feeling better since hospital discharge no further nausea.?Overall health?Good.?Change in appetite?denies.?Chills?denies.?Fever?denies.?Night sweats?denies.?Sleep disturbance?denies. Weight gain?denies.?Weight loss?denies.?Neurologic:?Difficulty speaking?denies.?Dizziness?denies.?Gait abnormality?denies.?Headache?denies.?Loss of strength?denies.?Memory loss?admits.?Seizures?denies.?Tingling/Numbness?denies .?Ophthalmologic:?Blurred vision?denies.?Red eye?denies.?ENT:?Change in Voice?Denies.?Cold Symptoms?Denies.?Cough?Denies.?Dizziness?Denies.?Nasal Congestion?Denies.?Otalgia?Denies.?postnasal drip?Denies.?Blocked ear?denies.?Nosebleed?denies.?Snoring?denies.?Cardiovascular:?Diaphoresis?Denies.?Pedal Edema?Denies.?PND (Paroxsymal nocturnal dyspnea)?Denies.?Chest pain?denies.?Difficulty laying flat?denies.?Dyspnea on exertion?denies.?Heart murmur?denies.?Orthopnea?denies.?Respiratory:?Snoring?denies.?Asthma?denies.?Cough?denies.?Shortness of breath with exertion?denies.?Sputum production?denies.?Wheezing?denies.?Gastrointestinal:?Change in bowel habits?denies.?Constipation?denies.?Decreased appetite?denies.?Diarrhea?denies.?Heartburn?denies.?Nausea?denies.?Vomiting?cory es.?Musculoskeletal:?tingling/numbness?Denies.?myalgias?Denies.?Joint Swelling?Denies.?extremeties?normal.?Arthritis?, denies.?Back problems?denies.?Carpal tunnel?denies.?Joint stiffness?denies.?Muscle aches?denies.?Endocrine:?Bowel Changes?Denies.?Breast Discharge?Denies.?poor libido?Denies.?Cold intolerance?denies.?Excessive sweating?denies.?Excessive thirst?denies.?Frequent urination?denies.?Thyroid problems?denies.?Skin:?Bruising?Denies.?Eczema?denies.?Hair changes?denies.?Rash?denies.?Skin lesion(s)?denies.?Psychiatric:?Anxiety?denies.?Depressed mood?denies.?Difficulty sleeping?denies.?Nervous breakdown?denies.?Substance abuse?denies.?Urology:?abnormal menstrual bleeding?denies.?blood in urine?denies.?burning on urination?denies.?difficulty urinating?denies.?discharge?denies.?dysuria?denies.? * Medical History:? * Medications:?TakingPantopraz ole Sodium 40 MG Tablet Delayed Release 1 tablet 1/2 to 1 hour before morning meal Orally Once a day guaiFENesin 100 MG/5ML Liquid as directed Orally Vitamin D3 50 MCG (2000 UT) Tablet [...] Tablet 1 capsule Orally once a day Ondansetron HCl 4 MG Tablet 1 tablet Orally twice a day Taking Pantoprazole Sodium 40 MG Tablet Delayed Release 1 tablet 1/2 to 1 hour before morning meal Orally Once a day Taking guaiFENesin 100 MG/5ML Liquid as directed Orally Taking Vitamin D3 50 MCG (2000 UT) [...] 1 capsule Orally once a day Taking Ondansetron HCl 4 MG Tablet 1 tablet Orally twice a day Not-TakingLatuda 20 MG Tablet 1 [...] Centrum Silver - Tablet as directed Orally Not- Taking ZyrTEC Allergy 10 MG Tablet 1 tablet Orally Once a day Medication List reviewed and reconciled with the patient * Allergies:?Codeine: AllergyA dhesive: AllergyOxycodone: Allergyno[Allergies Verified] Objective: * Vitals:?Temp:97.3F, Oxygen s at %:97%, HR:92/min, BP:130/84mm Hg, Wt:160lbs, BMI:30.23Index, Ht: 5'1 . * Examination: ???General Examination: ?Psychiatry?Normal.?GENERAL APPEARANCE:?Well developed, well nourished, in no acute distress.?MUSCULOSKELETAL:?, normal.?HEAD:?Normocephalic, atraumatic.?EYES:?Pupils equal, round, reactive to light and accommodation, sclera non-icteric,.?EARS:?Normal.?ORAL CAVITY:?Normal.?THROAT:?Clear.?OROPHARYNX?Normal.?SINUSES?Normal.?NECK/THYROID:?Neck supple, full range of motion, no cervical lymphadenopathy.?SKIN:?Warm and dry, no suspicious lesions.?HEART:?Normal.?LUNGS:?Normal.?BREASTS:?__.?ABDOMEN:?Soft, nontender, nondistended, bowel sounds present, normal.?EXTREMITIES:?heberden's nodes.?PERIPHERAL PULSES:?Normal.?NEUROLOGIC:?Nonfocal,? appropriate?motor strength normal upper and lower extremities, sensory exam intact.?FEMALE GENITOURINARY:?__.?MALE GENITOURINARY:?__.?PODIATRIC:?Normal.?Nursery Worker? .? Assessment: * Assessment: 1.?Hospital discharge follow -up - Z09 (Primary)???2.?Schizoaffective disorder, depressive type - F25.1???3.?Generalized anxiety disorder - F41.1???4.?Diabetes mellitus due to underlying condition with hyperglycemia - E08.65???5.?Gastro-esophageal reflux disease with esophagitis, without bleeding - K21.00??? 74 years old lady With insul in-dependent DM type II, hypertension, hyperlipidemia, hypothyroidism generalized anxiety disorder, acid reflux schizoaffective disorder who was admitted to [facility] for acute cholecystitis status post cholecystectomy readmitted for nausea vomiting epigastric pain and dehydration and is here today for a follow-up visit.I reviewed all the reports lab work procedure notes from [facility] discharge paperwork and discussed it with the patient Post discharge Hospital follow-up 14 days she is feeling much better, she was diagnosed with severe GERD and was started on a PPI Protonix 40 mg daily she was seen by GI Dr. Russo was planning to follow-up as an outpatient.? Review patient's medications she is on above results I discussed with the patient that she does not have to take omeprazole and Protonix together she wants to continue till she sees GI. history of anxiety and depression,r patient is off all medications and is in the process of getting a new psychiatrist Plan of care was discussed in detail with patient and her family was present in the room today,they are also requesting paperwork for getting an independent/assisted living. Plan: * Treatment: * Procedure Codes:?29312 TRANS CARE MGMT 14 DAY DISCH * * Sign off status: Completed true * Provider:?Ángel Box, Date:?06/11/2024 Generated for Royer cruz/Charis/Sydneeitting on:?06/13/2024 05:01 PM EDT History and Physical Notes * HPI (History of Present Illness) Category Sub-Category Detail Notes Category Not es Internal Medicine Ms. Mosquera is 74 years old lady With insulin-dependent DM type II, hypertension, hyperlipidemia, hypothyroidism generalized anxiety disorder, acid reflux schizoaffective disorder who is here today for a post hospital discharge follow-up. She was admitted to [facility] and discharged on 06/01/24 for severe epigastric pain and gastritis. She was initially admitted in 05/23/24 and had a cholecystectomy done for recurrent abdominal pain and nausea. She was discharged on a 05/24/24 after a few days she developed epigastric pain and severe nausea and could not keep anything down. She was readmitted to [facility]. She was seen by GI and was given PPIs with significant improvement in her symptoms with plan for outpatient follow-up and a possible endoscopy. she has no other new complaints she also reports that she has been off all her psych medication and is feeling great. She is more alert has better appetite and her mood is also better. 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 Russo
--- OUTSIDE RECORDS SUMMARY | 2024-06-13 17:01 | XMS_ITS | Patient Health Record ---
Demographics Address [address] [place] [address] Email Address Preferred Language en Marital Status Yazidism Affiliation Unknown Race White Ethnic Group Not or Lati no Author Organization [facility] Address [address] [place] [address] Support Name Relationship Address Phone Rigo Jin Emergency Contact [address] [place] [address] Lizzette Steiner Guarantor Unknown Care Team Providers Care Drying Room Attendant Name Role Phone Tyrone Ortegad Primary Care Provider Cedric Rueda Unavailable [phone] Allergies Allergen (clinical drug ingredient) Drug/Non Drug Allergy documented on EMR Reaction Allergy Type Onset Date Status ibuprofen Advil leg swelling Drug Allergy Acti ve escitalopram Lexapro swelling Drug Allergy Acti ve oxycodone OxyCONTIN itching severe Drug Allergy Ac tive codeine Codeine nausea Drug Allergy Active Adhesive redness Allergy Active Reason For Referral No Information Medications Medication [...] Status Risk Notes Problem Contusion of foot (87050469) Contusion of foot (924.20) Active confirmed Problem Edema (91841073) Edema (782.3) Active confirmed Problem Neurologic disorder associated with type II diabetes mellitus (838032505) Diabetic - NIDDM/Neuropathy (250.60) Active confirmed Problem Polyneuropathy due to type 2 diabetes mellitus (495069217) Type 2 diabetes mellitus with diabetic polyneuropathy (E11.42) Active confirmed Plan Of Treatment Pending Test Test Name Order Date X ray : Foot, left 3V 02/23/2011 Insurance Providers Payer Name Payer Address Payer Phone Subscriber Number Group Number Insured Name Patient Relationship to Insured Coverage Start Date Coverage End Date Medicare National [employer] [address] [place] [address] [id number] Lizzette Steiner Self - patient is the insured [employer]) [address] [place] [id number] Rigo Steiner Spouse - patient is the spouse of the insured Medical (General) History Medical History History ICD Code breast cancer chicken pox thyroid disorder measles diabetic depression Anxiety Arthritis asthma Back,Hip,and Knee pain Cataracts Depression Fibromyalgia Numbness Psychiatric disorder Hearing loss Surgical History Surgery Date(Month/Year) right mastectomy Left shoulder 3 Spurs
--- OUTSIDE RECORDS SUMMARY | 2024-06-13 17:02 | XMS_ITS ---
Demographics Address [address] [place], [place] Mobile Email Address Preferred Language en Marital Status Unknown Hinduism Affiliation Unknown Race White Ethnic Group Unknown Author Organization [facility] Address [address] [place] [address] Care Team Providers Care Bottom Presser Name Role Phone CARYN CALABRESE Primary Care Provider [phone] Herson Franco [phone] REASON FOR VISIT Ultrasound of the abdomen Encounters Encounter Location Date Provider Diagnosis [facility] [address] [place] [address] 05/30/2024 Herson Franco Plan Of Treatment No Information Progress Notes * JAMARPete CHENDavidB:[birth year] (74 yo F)Acc No.[id number]:05/30/2024 Patient:?Lizzette MOSQUERA :1950???Age:74 Y???Sex:Female Address:[address] [facility] [place], [place] * true * Date:? Generated for Royer cruz/Charis/eTransmitting on:?06/13/2024 05:01 PM EDT
--- OUTSIDE RECORDS SUMMARY | 2024-06-13 17:02 | XMS_ITS | Patient Health Record ---
Demographics Address [address] [place] [address] Mobile Email Address Preferred Language en Marital Status Unknown Denominational Affiliation Unknown Race White Ethnic Group Unknown Author Organization [employer] Address [address] [place] [address] Care Team Providers Care Sheep Sorter Name Role Phone DEMARCUSLogan RUBIN Primary Care Provider [phone] Anabellekalie Ángel Unavailable [phone] ClintjessicaBenedicto zhangherlinda Unavailable [phone] Allergies Allergen (clinical drug ingredient) Drug/Non Drug Allergy documented on EMR Reaction Allergy Type Onset Date Status Adhesive Unknown Allergy Active codeine Codeine Unknown Drug Allergy Active oxycodone Oxycodone Unknown Drug Allergy Active Results Component Value Reference Range Notes Basic Metabolic Panel [id number] Reviewed date:12/12/2023 08:24:30 AM Interpretation: Performing Lab:Alyce Pires, [address] [facility], Phone - [phone], Director - Ruthy Notes/Report: Clinical Information:SRC: Glucose 160 70-99 mg/dL BUN 22 8-27 mg/dL Creatinine 1.09 0.57-1.00 mg/dL eGFR 53 >59 mL/min/1.73 BUN/Creatinine Ratio 20 12-28 Sodium 143 134-144 mmol/L Potassium 4.7 3.5-5.2 mmol/L Chloride 104 96-106 mmol/L Carbon Dioxide, Total 22 20-29 mmol/L Magnesium-[id number] Reviewed date:12/12/2023 07:57:52 AM Interpretation: Performing Lab:Alyce Pires, [address] [facility], [place], Phone - [phone], Director - Ruthy Notes/Report: Clinical Information:SRC: Magnesium 1.6 1.6-2.3 mg/dL Hemoglobin [id number] Reviewed date:12/12/2023 08:24:15 AM Interpretation: Performing Lab:[facility], [address], [place], Phone - [phone], Director - Ruthy Notes/Report: Clinical Information:SRC: Hemoglobin A1c 7.5 4.8-5.6 % . Prediabetes: 5.7 - 6.4 Diabetes: >6.4 Glycemic control for adults with diabetes: <7.0 Reason For Referral Reason Please evaluate and treat. Diagnosis 1 Gastro-esophageal re flux disease without esophagitis (K21.9) Diagnosis 2 Gastritis and duoden itis (K29.90) Referral Organization [facility] Referring Provider First Name RUBIN Referring Provider Last Name BHARATI Referring Provider Speciality Internal M edicine Referred Provider Specialty Gastroentero logy General Notes Referral faxed. Leenaa call patient to schedule appointment.Danielle Shannon 06/11/2024 02:40:05 PM > Referral Priority Routine Reason Dr. Dez Inman Diagnosis 1 Gastro-esophageal re flux disease with esophagitis, without bleeding (K21.00) Diagnosis 2 Gastritis and duoden itis (K29.90) Referral Organization [facility] Referring Provider First Name Ángel Referring Provider Last Name Isauro Referring Provider Speciality Internal M edicine Referred Provider Specialty Gastroentero logy General Notes Referral faxed. Yolnada light call patient to schedule appointment.Danielle Shannon 06/12/2024 10:42:59 AM > Referral Priority Routine Medications Medication SIG (Take, Route, Frequency, Duration) Notes Start Date End Date Status OneTouch Ultra Blue - Use 2-3 times a da y In Vitro for 90 days 10/27/2023 Active Gabapentin 400 MG TAKE 1 CAPSULE BY MOUTH 3 TIMES A DAY FOR 30 DAYS for 30 Active Xyzal Allergy 24HR 5 MG 1 tablet in the evening Orally Once a day Active Acetaminophen ER 650 MG 2 tablets as needed Orally every 8 hrs Active Lasix 20 MG 1 tablet Orally Once a day Active Ondansetron HCl 4 MG 1 tablet Orally twice a day for 15 days 05/22/2024 Active Omeprazole 40 MG 1 capsule 30 minutes before morning meal Orally Once a day Active Latuda 20 MG 1 tablet in the evening with food Orally Once a day Not-Taking Vitamin D3 50 MCG (1999 UT) 1 tablet Orally Once a day Active traMADol HCl 50 MG 1/2 tablet Orally Once a day for 5 days 04/03/2024 Active Vitamin B6 100 MG 1 tablet Orally Once a day Active Magnesium 400 MG 1 capsule Orally once a day for 30 days Active Pantoprazole Sodium 40 MG 1 tablet 1/2 to 1 hour before morning meal Orally Once a day Active Diclofenac Sodium 75 MG 1 tablet Orally Twice a day for 30 days Active guaiFENesin 100 MG/5ML as directed Orally Active traMADol HCl 25 MG as directed Orally once a day for 5 days 04/03/2024 Active Fluocinolone Acetonide 0.025 % 1 application Externally Twice a day for 30 days 03/15/2024 Active Fluocinolone Acetonide 0.025 % APPLY AM AND PM TO VAGINAL/ANAL AREA TWICE WEEKLY (MONDAY & MONDAY) FOR 2 WEEKS. THEN STARTING WEEK 3 USE AM & PM MONDAY, MONDAY, MONDAY UNTIL APPOINTMENT for 21 Active Fish Oil 1000 MG 1 capsule Orally Once a day Not-Taking Colace 100 MG 1 capsule as needed Orally Once a day Active NexIUM 40 MG 1 capsule Orally Once a day for 30 days 02/10/2023 Not-Taking Cymbalta 30 MG 1 capsule Orally 2 times a day 03/28/2023 Not-Taking BD Pen Needle Short U/F 31G X [...] Once a day for 30 days Active ZyrTEC Allergy 10 MG 1 tablet Orally Onc e a day Not-Taking Lidoderm 5 % 1 patch remove after 12 hours Externally Once a day 06/13/2023 Active Aspirin Adult Low Dose 81 MG 1 tablet Orally Once a day Active Sucralfate 1 GM 1 tablet on an empty stomach Orally Twice a day for 30 days 02/10/2023 Not-Taking LORazepam 0.5 MG 1 tablet Orally daily prn & [address] Gennaro Chow Active Centrum Silver - as directed Orally Not-Taking Immunizations Vaccine Route Administration Date Status Comme nts COVID Moderna Unknown 05/29/2020 Administered COVID Moderna Unknown 06/26/2020 Administered COVID Moderna Unknown 02/28/2021 Administered Flu Unknown 01/16/2023 Administered Shingrix Unknown 06/11/2021 Administered Shingrix Unknown 09/13/2021 Administered Problems Problem Type SNOMED Code ICD Code Onset Dates Problem Status W/U Status Risk Notes Problem Hypothyroidism (34822023) Hypothyroidism, unspecified (E03.9) Active confirmed Problem Diabetic neuropathy (475720171) Diabetes mellitus due to underlying condition with diabetic neuropathy, unspecified (E08.40) Active confirmed Problem Secondary diabetes mellitus (4878681) Diabetes mellitus due to underlying condition with hyperglycemia (E08.65) Active confirmed Problem Mixed hyperlipidemia (500711394) Mixed hyperlipidemia (E78.2) Active confirmed Problem Schizoaffective disorder, depressive type (06281566) Schizoaffective disorder, depressive type (F25.1) Active confirmed Problem Moderate recurrent major depression (11583946) Major depressive disorder, recurrent, moderate (F33.1) Active confirmed Problem Generalized anxiety disorder (33014199) Generalized anxiety disorder (F41.1) Active confirmed Problem Hearing loss (34222403) Unspecified hearing loss, bilateral (H91.93) Active confirmed Problem Gastro-esophageal reflux disease without esophagitis (214235646) Gastro-esophageal reflux disease without esophagitis (K21.9) Active confirmed Problem Osteoarthritis (405465146) Polyosteoarthritis , unspecified (M15.9) Active confirmed Problem Chronic kidney disease (028148544) Chronic kidney disease, unspecified (N18.9) Active confirmed Problem 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) 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 (Z79.4) Active confirmed Problem Obsessive-compulsiv e disorder (253754667) Obsessive-compulsi ve disorder, unspecified (F42.9) Active confirmed Problem Amnesia (43515386) Complaints of memory disturbance (R41.3) Active confirmed Problem Gastroesophageal reflux disease with esophagitis (disorder) (567523084) Gastro-esophageal reflux disease with esophagitis, without bleeding (K21.00) Active confirmed Problem Gastritis and duodenitis (433790581) Gastritis and duodenitis (K29.90) Active confirmed Vital Signs Heart Rate 92 /min 06/11/2024 Temperature 97.3 degrees Fahrenheit 06/11/2024 Blood pressure diastolic 84 mm Hg 06/11/2024 Oximetry 97 % 06/11/2024 Height 5'1 in 06/11/2024 Blood pressure systolic 130 mm Hg 06/11/2024 Weight 160 lbs 06/11/2024 BMI 30.23 kg/m2 06/11/2024 Encounters Encounter Location Date Provider Diagnosis [address] [place] [address] 12/13/2023 [facility] Encounter for genera l adult medical examination without abnormal findings Z00.00 ; Diabetes mellitus due to underlying condition with diabetic neuropathy, unspecified E08.40 ; Mixed hyperlipidemia E78.2 ; Hypothyroidism, unspecified E03.9 ; Generalized anxiety disorder F41.1 and Chronic kidney disease, unspecified N18.[address] [place] [address] 02/08/2024 Herson Franco Viral conjunctivitis , unspecified B30.[address] [place] [address] 05/17/2024 [facility] Hospital discharge follow-up Z09 ; Schizoaffective disorder, depressive type F25.1 ; Generalized anxiety disorder F41.1 and Diabetes mellitus due to underlying condition with hyperglycemia E08.[address] [place] [address] 06/11/2024 [facility] Schizoaffective disorder, depressive type F25.1 ; Hospital discharge follow-up Z09 ; Generalized anxiety disorder F41.1 ; Diabetes mellitus due to underlying condition with hyperglycemia E08.65 and Gastro-esophageal reflux disease with esophagitis, without bleeding K21.[address] [place] [address] 06/10/[address] [place] [address] 08/25/[address] [place] [address] 08/30/2023 [facility] [address] [facility] [place] [address] 08/31/2023 [facility] [address] [place] [address] 08/31/2023 [facility] [address] [facility] [place] [address] 10/09/2023 [facility] [address] [place] [address] 10/23/2023 [facility] [address] [facility] [place] [address] 10/24/2023 [facility] [address] [place] [address] 10/25/2023 [facility] [address] [facility] [place] [address] 10/27/2023 [facility] [address] [facility] [place] [address] 12/06/2023 [facility] [address] [facility] [place] [address] 12/15/2023 [facility] [address] [facility] [place] [address] 01/02/2024 [facility] [address] [facility] [place] [address] 03/14/2024 Ghadeer Mazloum Pruritus vulvae L29. [address] [facility] [address] [facility] [place] [place] [address] 04/03/2024 Ghadeer Mazloum Pain in unspecified shoulder M25.519 [facility] [address] [facility] [place] [place] [address] 04/03/2024 Ghadeer Mazloum Pain in unspecified shoulder M25.519 [facility] [address] [place] [address] 04/05/2024 RUBIN GUL Pain in unspecified shoulder M25.519 [facility] [address] [place] [address] 04/05/[address] [place] [address] 05/22/[address] [place] [address] 05/29/[address] [place] [address] 05/30/2024 Herson Franco Assessments Encounter Date Diagnosis (ICD Code) Assessment [...] months. Continue current regimen. She is seen hand stone polisher and podiatry in the past 1 year. [...] She is up-to-date on health specific screening 02/08/2024 Viral conjunctivitis, unspecified (ICD-10 - B30.9) Ms. Steiner is 73 years old lady With insulin-dependent DM type II, hypertension, hyperlipidemia, hypothyroidism generalized anxiety disorder, acid reflux Is here for pink eye. plan as follows: Viral Conjunctivitis: - Started today with watery tears. No purulent drainage is noted. Advised patient on taking Ketotifen [id number] eyedrop. She can also start taking partial tears for dry eyes. She can also use warm compresses. I have rendered the services for this patient under direct supervision of Dr. Ortega, who did not see the patient but was available upon request 03/14/2024 Pruritus vulvae (ICD-10 - L29.2) 04/03/2024 Pain in unspecified shoulder (ICD-10 - M25.519) 04/03/2024 Pain in unspecified shoulder (ICD-10 - M25.519) 04/05/2024 Pain in unspecified shoulder (ICD-10 - M25.519) 05/17/2024 Schizoaffective disorder, depressive type (ICD-10 - F25.1) 74 years old lady With insulin-dependent DM type II, hypertension, hyperlipidemia, hypothyroidism generalized anxiety disorder, acid reflux schizoaffective disorder who was seen in the [facility] emergency room on a 05/15 24 for extreme fatigue weakness and then went to [facility] on 05/16/24 for the same complaints is here for posthospital discharge follow-up. Post discharge Hospital follow-up 7 days fatigue weakness poor appetite due to dehydration possible withdrawal from abruptly stopping Cymbalta, in increased dose of Latuda and then discontinuing Latuda completely All lab work has been unremarkable no evidence of any infection notes from [facility] has been reviewed. Discussed at length [...] schizoaffective disorder who was seen in the [facility] emergency room on a 05/15 24 for extreme fatigue weakness and then went to [facility] on 05/16/24 for the same complaints is here for posthospital discharge follow-up. Post discharge Hospital follow-up 7 days fatigue weakness poor appetite due to dehydration possible withdrawal from abruptly stopping Cymbalta, in increased dose of Latuda and then discontinuing Latuda completely All lab work has been unremarkable no evidence of any infection notes from [facility] and [facility] has been reviewed. Discussed at [...] family was present in the room today 06/11/2024 Schizoaffective disorder, depressive type (ICD-10 - F25.1) 74 years old lady With insulin-dependent DM type II, hypertension, hyperlipidemia, hypothyroidism generalized anxiety disorder, acid reflux schizoaffective disorder who was admitted to [facility] for acute cholecystitis status post cholecystectomy readmitted for nausea vomiting epigastric pain and dehydration and is here today for a follow-up visit.I reviewed all the reports lab work procedure notes from [facility] discharge paperwork and discussed it with the [...] reflux schizoaffective disorder who was admitted to [facility] for acute cholecystitis status post cholecystectomy readmitted for nausea vomiting epigastric pain and dehydration and is here today for a follow-up visit.I reviewed all the reports lab work procedure notes from [facility] discharge paperwork and discussed it with the [...] reflux schizoaffective disorder who was admitted to [facility] for acute cholecystitis status post cholecystectomy readmitted for nausea vomiting epigastric pain and dehydration and is here today for a follow-up visit.I reviewed all the reports lab work procedure notes from [facility] discharge paperwork and discussed it with the [...] paperwork for getting an independent/assist ed living. 05/17/2024 Generalized anxiety disorder (ICD-10 - F41.1) 74 years old lady With insulin-dependent DM type II, hypertension, hyperlipidemia, hypothyroidism generalized anxiety disorder, acid reflux schizoaffective disorder who was seen in the [facility] emergency room on a 05/15 24 for extreme fatigue weakness and then went to [facility] on 05/16/24 for the same complaints is here for posthospital discharge follow-up. Post discharge Hospital follow-up 7 days fatigue weakness poor appetite due to dehydration possible withdrawal from abruptly stopping Cymbalta, in increased dose of Latuda and then discontinuing Latuda completely All lab work has been unremarkable no evidence of any infection notes from [facility] and [facility] has been reviewed. Discussed at [...] months. Continue current regimen. She is seen hand stone polisher and podiatry in the past 1 year. [...] months. Continue current regimen. She is seen hand stone polisher and podiatry in the past 1 year. [...] schizoaffective disorder who was seen in the [facility] emergency room on a 05/15 24 for extreme fatigue weakness and then went to [facility] on 05/16/24 for the same complaints is here for posthospital discharge follow-up. Post discharge Hospital follow-up 7 days fatigue weakness poor appetite due to dehydration possible withdrawal from abruptly stopping Cymbalta, in increased dose of Latuda and then discontinuing Latuda completely All lab work has been unremarkable no evidence of any infection notes from [facility] has been reviewed. Discussed at length [...] family was present in the room today 06/11/2024 Diabetes mellitus due to underlying condition with hyperglycemia (ICD-10 - E08.65) 74 years old lady With insulin-dependent DM type II, hypertension, hyperlipidemia, hypothyroidism generalized anxiety disorder, acid reflux schizoaffective disorder who was admitted to [facility] for acute cholecystitis status post cholecystectomy readmitted for nausea vomiting epigastric pain and dehydration and is here today for a follow-up visit.I reviewed all the reports lab work procedure notes from [facility] discharge paperwork and discussed it with the [...] reflux schizoaffective disorder who was admitted to [facility] for acute cholecystitis status post cholecystectomy readmitted for nausea vomiting epigastric pain and dehydration and is here today for a follow-up visit.I reviewed all the reports lab work procedure notes from [facility] discharge paperwork and discussed it with the [...] paperwork for getting an independent/assist ed living. 12/13/2023 Hypothyroidism, unspecified (ICD-10 - E03.9) Lizzette [...] months. Continue current regimen. She is seen hand stone polisher and podiatry in the past 1 year. [...] is up-to-date on health specific screening 12/13/2023 Generalized anxiety disorder (ICD-10 - F41.1) [...] months. Continue current regimen. She is seen hand stone polisher and podiatry in the past 1 year. [...] months. Continue current regimen. She is seen hand stone polisher and podiatry in the past 1 year. [...] She is up-to-date on health specific screening Plan Of Treatment Future Test Test Name Order Date Hemoglobin [id number] 12/13/2023 Albumin/Creatinine Ratio,Urine-[id number] Lipid [id number] 12/13/2023 Comp. Metabolic Panel [id number] 2023 TSH+Free T4 12/13/2023 Insurance Providers Payer Name Payer Address Payer Phone Subscriber Number Group Number Insured Name Patient Relationship to Insured Coverage Start Date Coverage End Date Medicare [address] [place] [phone] [id number] Lizzette Steiner Self - patient is the insured [employer] ([employer]) [address] [place] [id number] Lizzette Steiner Self - patient is the insured Medical (General) History Medical History History ICD Code CATIE/MDD see Dr Le Psy OCD Hyperlipidemia long-term use 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
== END 2024-06-13 13:44 | disposition home or self-care (01) ==
LOC: HO.HGS 13:27
PROVIDERS: PCP Hospitalist; Visit Provider Surgery
DX: Z90.49 Acquired absence of other specified parts of digestive tract (principal)
CPT/HCPCS: 99024

== ENCOUNTER → 2024-06-13 13:26 | Outpatient (BNVA) | payer MEDICARE, OTHER, SELFPAY | PROVIDERS: PCP Hospitalist; Visit Provider Surgery | DX: Z09 Encounter for follow-up examination after completed treatment for conditions other than malignant neoplasm (principal); Z90.49 Acquired absence of other specified parts of digestive tract; Z98.890 Other specified postprocedural states | CPT/HCPCS: 99212 ==

== ENCOUNTER 2024-06-20 08:31 | Day surgery (SDC) | payer MEDICARE, OTHER, SELFPAY ==
[2024-06-20 09:51] LABS: Glucose, Whole Blood 115 mg/dL (60-115)
[2024-06-20 09:57] VITALS: BMI 27.7
--- NOTE | 2024-06-20 09:58 | HO.ANESPROP2 ---
HPI - Anesthesia Eval Consult details Narrative: for upper endo PMFSH Active Problems Active Problems: All Active Problems Gastritis (Acute) Duodenitis (Acute) S/P laparoscopic cholecystectomy (Acute) Cervical spinal stenosis (Acute) Osteoarthritis of shoulders, bilateral (Acute) Knee osteoarthritis (Acute) Overdose (Acute) Post-menopausal (Acute) Diabetic neuropathy (Acute) Hepatic steatosis (Acute) Renal cyst (Acute) Renal stone (Acute) Hypothyroidism (Acute) Obesity (BMI 30-39.9) (Acute) Elevated LFTs (Acute) Internal hemorrhoid (Acute) External hemorrhoid (Acute) Bilateral edema of lower extremity (Acute) Fibromyalgia (Acute) Compulsive scratching behavior (Acute) Physical exam (Acute) Uncontrolled diabetes mellitus (Acute) Change in hearing (Acute) Type II diabetes mellitus (Acute) Urinary incontinence (Acute) Schizoaffective disorder (Acute) Confusion (Acute) Vitamin D deficiency (Acute) HTN (hypertension) (Acute) HLD (hyperlipidemia) (Acute) Urinary urgency (Acute) OCD (obsessive compulsive disorder) (Acute) Depression (Acute) GERD (gastroesophageal reflux disease) (Acute) Arthralgia of shoulder region, left (Acute) Cervical spondylitis with radiculitis (Acute) Myofascial pain on left side (Acute) Past Medical History Medical History Bilateral cataracts Schizoaffective disorder Confusion Skin rash Vitamin D deficiency HTN (hypertension) HLD (hyperlipidemia) Cellulitis of leg, left Skin excoriation Urinary urgency Encounter to establish care Arthralgia of shoulder region, left Cervical spondylitis with radiculitis Myofascial pain on left side Depression OCD (obsessive compulsive disorder) DJD (degenerative joint disease) SI (sacroiliac) joint dysfunction Fibromyalgia GERD (gastroesophageal reflux disease) Neuropathy Diabetes Family History Family History Father No problems noted. Mother No problems noted. Family history of problems with anesthesia: No Surgical History Surgical History History of laparoscopic cholecystectomy (~05/24/24) H/O mastectomy Hx of appendectomy H/O exploratory laparotomy History of surgery History of Problems with Anesthesia: No Social History Social History Household Members: Spouse Household Members Other:: 1 Housing: House Do you presently have visiting nurse or other home services: No Alcohol intake: former Comment: SI 1:1 Patient Tobacco Use Status: Never used Tobacco Tobacco use type: Cigarette e-Cigarette/Vaping Use: Never Used Second Hand Smoke Exposure: No Advance Directives: No Advance Directives Information Provided: Yes Advance Directives Date on File: 06/01/24 service: No Current occupational status: retired Cognitive needs: Yes (cane) Hearing needs: Yes (hearing aide) Vision needs: Yes (glasses) Meds Allergies Allergy/AdvReac Type Severity Reaction Status Date / Time codeine [Codeine] Allergy Unknown NAUSEA AND Verified 06/13/24 13:38 VOMITING, nausea pregabalin Allergy Unknown Confusion Verified 06/13/24 13:38 rosuvastatin [Crestor] Allergy Unknown joint pain Verified 06/13/24 13:38 NSAIDS (Non-Steroidal Allergy Swelling Verified 06/13/24 13:38 Anti-Inflamma oxycodone [From OxyContin] Allergy Itching Verified 06/13/24 13:38 [place] Insulin Allergy Unknown severe Uncoded 06/13/24 13:38 itching tapes, adhesives, tegaderm, Allergy Unknown rash Uncoded 06/13/24 13:38 st wellbutrin Allergy Unknown rash Uncoded 06/13/24 13:38 lexapro AdvReac Severe lethargic Uncoded 06/13/24 13:38 Home Medications ?Medication ?Instructions ?Recorded ?Confirmed ?Last Taken ?Type aspirin 81 mg tablet,delayed 81 mg PO BEDTIME 01/01/21 06/01/24 Unknown History release (Adult Aspirin Regimen) lorazepam 0.5 mg tablet 0.5 - 1 mg PO BID PRN ANXIETY OR 01/01/21 06/01/24 Unknown History SLEEP biotin 1 mg capsule 1 mg PO DAILY 05/17/21 06/01/24 Unknown History omega 5-tpm-ixd-fish oil 1,000 mg 1 cap PO DAILY PRN supplemnt 05/17/21 06/01/24 Unknown History (120 mg-180 mg) capsule (Fish Oil) blood sugar diagnostic (OneTouch #10 ea 05/27/21 10/30/23 Unknown History Ultra Test strips) levocetirizine 5 mg tablet (Xyzal) 5 mg PO DAILY PRN Allergy Symptoms 09/09/21 06/01/24 Unknown History docusate sodium 100 mg capsule 100 mg PO DAILY PRN Constipation 12/28/23 06/01/24 Unknown History (Colace) diclofenac sodium 75 mg 75 mg PO BID PRN Pain 05/23/24 06/01/24 Unknown History tablet,delayed release hydroxyzine pamoate 25 mg capsule 25 mg PO BID PRN Itching 05/23/24 06/01/24 Unknown History omeprazole 40 mg capsule,delayed 40 mg PO DAILY@0630 05/23/24 06/01/24 Unknown History release insulin glargine 100 unit/mL (3 46 unit subcut DAILY 06/01/24 06/01/24 Unknown History mL) subcutaneous pen (Basaglar KwikPen U-100 Insulin) ipratropium bromide 42 mcg (0.06 2 spray intranasal QID PRN Allergy 06/01/24 06/01/24 Unknown History %) nasal spray Symptoms Exam Pertinent Lab Results Pertinent Lab Results: Laboratory Tests 06/20/24 09:45 POC Glucose 115 Airway Mallampati Class: III TM Dist: <=3cm Neck ROM: Poor Heart: rrr Lungs: cta Assessment and Plan Final Anesthetic Review Family History of Problems with Anesthesia: No History of Problems with Anesthesia: No NPO: Yes ASA Class: III Final Preanesthetic Review: No Changes in Pt Med Stat, Meds/Allgs Chart Reviewed, Consent Obtained/Reviewed and Anes Risks/Benef Reviewed Patient Risk: Intermediate Anesthetic Plan Anesthetic Plan: MAC: Disposition: Standard PACU
--- NOTE | 2024-06-20 10:10 | P.HPSUR_ITS ---
Pre-Procedural Eval Section A - 24 Hr Update-Section A only Date of Service: 06/20/24 Section B - Complete if H&P > 30 days Chief Complaint: Gastritis, unspecified, without bleeding Details of Present Illness: persistent nausea Relevant Family History (Specify if Yes): No Relevant Social History: None Present Medications: see Short Stay Collaborative assessment Medical History: Significant History (Bilateral cataracts Schizoaffective disorder Confusion Skin rash Vitamin D deficiency HTN (hypertension) HLD (hyperlipidemia) Cellulitis of leg, left Skin excoriation Urinary urgency Encounter to establish care Arthralgia of shoulder region, left Cervical spondylitis with radiculitis Myofascial pain) History of Previous Operations: Relevant previous surgery/procedure and date(s) (History of laparoscopic cholecystectomy (~05/24/24) H/O mastectomy Hx of appendectomy H/O exploratory laparotomy History of surgery) Allergies: Allergies Allergy/AdvReac Type Severity Reaction Status Date / Time codeine [Codeine] Allergy Unknown NAUSEA AND Verified 06/20/24 10:09 VOMITING, nausea pregabalin Allergy Unknown Confusion Verified 06/20/24 10:09 rosuvastatin [Crestor] Allergy Unknown joint pain Verified 06/20/24 10:09 NSAIDS (Non-Steroidal Allergy Swelling Verified 06/20/24 10:09 Anti-Inflamma oxycodone [From OxyContin] Allergy Itching Verified 06/20/24 10:09 [place] Insulin Allergy Unknown severe Uncoded 06/20/24 10:09 itching tapes, adhesives, tegaderm, Allergy Unknown rash Uncoded 06/20/24 10:09 st wellbutrin Allergy Unknown rash Uncoded 06/20/24 10:09 lexapro AdvReac Severe lethargic Uncoded 06/20/24 10:09 Review of Systems Sugical H&P ROS: Negative: Constitution, Cardiovascular, Respiratory, Neurological, Psychiatric, Hem-Onc, Allergic/Immunologic, Gastrointestinal, Jessica tourinary, Musculoskeletal, Integumentary, Endocrine and Eyes/Ears/Nose/Throat Exam Surgical H&P Exam: Normal: HEENT, Normal: Heart, Normal: Lungs, Normal: Extremities, Normal: Abdomen, Normal: Skin and Normal: Neurological Plan Diagnosis/Plan: Unchanged I have reviewed the history and physical and performed a pertinent physical examination on my patient. No changes have occurred unless specified. Time Spent With Patient Time: Total time managing care of this patient today ____ minutes.
[2024-06-20] MEDS: Lactated Ringers 1,000 ML 100 ML IVCONT (10:21)
--- NOTE | 2024-06-20 10:45 | W.PM.OPN ---
Operative Note Operative Note Date of Service: 06/20/24 Narrative: Procedure Description: EGD Indication: nausea Anesthesia: MAC FLEXIBLE TRANSORAL UPPER GASTROINTESTINAL ENDOSCOPY UPPER ENDOSCOPY Consent: Indications for the procedure and potential complications of bleeding, perforation, reaction to medications and missed diagnosis were discussed with the patient and informed consent was obtained. Instrument: Olympus GIF H 190 J mid size upper endoscope Monitoring: Vital signs and clinical assessment, continuous EKG monitoring, Pulse oximetry, Carbon Dioxide monitoring and blood pressure monitoring were done throughout the procedure. Procedure: The patient was placed in the left lateral decubitis position and pre-procedure medications were administered and a bite block was placed. The endoscope was inserted into the mouth and advanced under direct vision to the third part of duodenum. A careful inspection was made as the upper endoscope was withdrawn including a retroflexed examination of the proximal stomach; Findings and interventions are described below. Findings: Larynx:normal Esophagus: GE junction at 33 cm, diaphragm hiatus at 35 cm, schatzki ring noted with small hiatal hernia Stomach: patchy erythema with small amount of retained food . Biopsies were obtained. Grade 2 flap valve on retroflexed examination of the cardia. Duodenum: duodenal stricture just at the sweep, scope couldnt be passed, a wire was passed and then the stricture was dilated to 10 mm with heme noted. Scope was then passed and mucosa distal to this looked normal Intervention: Biopsies as noted above, wire guided balloon dilation Impression/Findings: gastritis schatzki ring with hiatal hernia duodenal stricture PLAN: cont with PPI repeat EGD in 2-4 weeks with repeat dilation and maybe kenalog injection as well GERD precautions
[2024-06-20 10:52] VITALS: BP 159/70; PULSE 86; RESP 24; TEMP 36.2; O2SAT 96
[2024-06-20 11:02] VITALS: BP 152/58; PULSE 80; RESP 16; O2SAT 99
[2024-06-20 11:23] VITALS: BP 159/61; PULSE 77; RESP 16; TEMP 37.1; O2SAT 99
== END 2024-06-20 12:34 | disposition home or self-care (01) ==
PROVIDERS: PCP Hospitalist; Visit Provider Internal Medicine Gastroenterology
PROC: 0DJ08ZZ Inspection of Upper Intestinal Tract, Via Natural or Artificial Opening Endoscopic (ICD-10-PCS; CPT 43235; principal; 2024-06-20 10:30)
DX: K31.5 Obstruction of duodenum (principal); K22.2 Esophageal obstruction; K29.70 Gastritis, unspecified, without bleeding; K44.9 Diaphragmatic hernia without obstruction or gangrene; Z90.49 Acquired absence of other specified parts of digestive tract; E11.9 Type 2 diabetes mellitus without complications; E78.5 Hyperlipidemia, unspecified; I10 Essential (primary) hypertension; E03.9 Hypothyroidism, unspecified; E55.9 Vitamin D deficiency, unspecified; Z79.4 Long term (current) use of insulin; Z79.02 Long term (current) use of antithrombotics/antiplatelets; Z79.82 Long term (current) use of aspirin; Z79.899 Other long term (current) drug therapy
CPT/HCPCS: 43245; 43239; 82947; 88305; 88313; 88342; C1726; J2003; J2704; J3010

== ENCOUNTER → 2024-06-20 08:31 | Outpatient (BNV) | payer MEDICARE, OTHER, SELFPAY | PROVIDERS: PCP Hospitalist; Visit Provider Internal Medicine Gastroenterology | DX: R11.0 Nausea (principal); K22.2 Esophageal obstruction; K29.70 Gastritis, unspecified, without bleeding; K31.5 Obstruction of duodenum | CPT/HCPCS: 43239; 43245 ==

== ENCOUNTER 2024-06-21 11:18 | Inpatient (IN) | payer MEDICARE, OTHER, SELFPAY ==
[2024-06-21] VITALS (8 sets, daily range): BP systolic 146–177; BP diastolic 65–81; PULSE 71–88; RESP 15–22; TEMP 36.2–36.8; O2SAT 97–99; BMI 27.5
--- NOTE | ~2024-06-21 | CT_ITS ---
CLINICAL HISTORY: nausea, EGD yesterday with duodenal stricture CT abdomen and pelvis with contrast Comparison: CT - CT HEAD/BRAIN WO IV CON - 06/21/24 20:32 EDT Findings: No consolidation or effusion. The gallbladder is absent. The liver, spleen, adrenal glands and pancreas are unremarkable. There is stranding about the proximal duodenum, similar to prior. Degree of edema along the region of the pylorus and proximal duodenum. Decreased from prior. No bowel obstruction or free air. Scattered gas and fluid throughout nondistended small and large bowel. Renal cysts are noted. No definite suspicious lesion. No obstructive uropathy. Uterus and adnexa are stable. The bladder is partially distended. Mild atherosclerotic disease. Degenerative changes seen within the spine. Impression: There is mild stranding and soft tissue thickening about the proximal duodenum. Duodenitis possible. Of note, the degree of edema is decreased versus the recent comparison study. Additional incidental findings. This document has been electronically signed by: Kp Hyatt MD on 06/21/2024 22:38:13
--- NOTE | ~2024-06-21 | CT_ITS ---
CLINICAL HISTORY: intractable nausea CT head without contrast Comparison: CT - CT HEAD/BRAIN WO IV CON - 06/21/24 20:32 EDT Findings: No evidence of acute territorial infarct. There is patchy low density in the periventricular and subcortical white matter. Diffuse volume loss is noted. No hydrocephalus. No hemorrhage, mass effect, mass lesion or midline shift. No abnormal extra-axial fluid. No calvarial fracture. Paranasal sinuses and mastoid air cells are clear. Impression: No evidence of acute process. Ischemic microangiopathy and diffuse volume loss. This document has been electronically signed by: Kp Hyatt MD on 06/21/2024 22:47:18
--- NOTE | 2024-06-21 11:28 | ED_ITS ---
HPI - General Adult General Chief complaint: Nausea/Vomiting/Diarrhea Stated complaint: Nausea, weakness - procedure yesterday Time Seen by Provider: 06/21/24 15:39 Source: patient, family, RN notes reviewed and old records reviewed Mode of arrival: ambulatory Limitations: no limitations History of Present Illness ED Provider: Medina Singh PA-C HPI narrative: 74 yo female with history of DM2, HTN, HLD, depression, schizoaffective disorder, history of SI with OD attempt in 2022, hypothyroidism, fibromylagia, OCS, history of recent admissions to [facility] for acute cholecystitis 05/24-05/27 s/p cholecystectomy and 06/01-06/04 for gastritis & duodenitis who presents to the ER for evaluation of ongoing nausea, poor PO intake for the last several days to weeks. She had an EGD with Dr. Russo yesterday that showed gastritis, Schatzki ring and duodenaal structure s/p dilatation, hiatial hernia. She reports the day of the procedure she did well but her symptoms of severe nausea returned today. She is only able to tolerate small sips of crys joycelyn. She denies any vomiting, diarrhea or constipation. She states she had a normal BM today. She has been taking protonix and zofran. She has NOT been taking any of her psychiatric medications for the last several weeks due to the nausea. Family is concerned she is going to go into crisis and try to overdose again because of these ongoing GI symptoms. MD complaint: nausea, poor PO intake Onset (ago): week(s) Severity: moderate Relieving factors: none Exacerbating factors: eating Associated symptoms: loss of appetite, malaise and weakness Treatments prior to arrival: none Related Data Home Medications ?Medication ?Instructions ?Recorded ?Confirmed aspirin 81 mg tablet,delayed 81 mg PO BEDTIME 01/01/21 06/20/24 release (Adult Aspirin Regimen) lorazepam 0.5 mg tablet 0.5 - 1 mg PO BID PRN ANXIETY OR 01/01/21 06/20/24 SLEEP biotin 1 mg capsule 1 mg PO DAILY 05/17/21 06/20/24 omega 8-nbc-zet-fish oil 1,000 mg 1 cap PO DAILY PRN supplemnt 05/17/21 06/20/24 (120 mg-180 mg) capsule (Fish Oil) blood sugar diagnostic (OneTouch #10 ea 05/27/21 06/20/24 Ultra Test strips) levocetirizine 5 mg tablet (Xyzal) 5 mg PO DAILY PRN Allergy Symptoms 09/09/21 06/20/24 docusate sodium 100 mg capsule 100 mg PO DAILY PRN Constipation 12/28/23 06/20/24 (Colace) diclofenac sodium 75 mg 75 mg PO BID PRN Pain 05/23/24 06/20/24 tablet,delayed release hydroxyzine pamoate 25 mg capsule 25 mg PO BID PRN Itching 05/23/24 06/20/24 insulin glargine 100 unit/mL (3 46 unit subcut DAILY 06/01/24 06/20/24 mL) subcutaneous pen (Basaglar KwikPen U-100 Insulin) ipratropium bromide 42 mcg (0.06 2 spray intranasal QID PRN Allergy 06/01/24 06/20/24 %) nasal spray Symptoms Previous Rx's ?Medication ?Instructions ?Recorded blood sugar diagnostic (OneTouch #100 ea 07/14/22 Ultra Test strips) magnesium oxide 400 mg (241.3 mg 400 mg PO DAILY #30 tabs 07/24/22 magnesium) tablet gabapentin 400 mg capsule 400 mg PO TID 30 days #90 caps 12/30/22 simvastatin 40 mg tablet 40 mg PO BEDTIME #90 tabs 04/26/23 levothyroxine 125 mcg tablet 125 mcg PO DAILY@0630 #90 tabs 05/18/23 pyridoxine (vitamin B6) 100 mg 100 mg PO DAILY 90 days #90 tabs 12/28/23 tablet acetaminophen 325 mg tablet 650 mg (2 x 325 mg) PO Q6H PRN 05/27/24 Pain, Mild 1-3,Fever,Headache #30 tabs guaifenesin 100 mg/5 mL oral liquid 100 mg (5 mL) PO Q4H PRN Cough 06/04/24 #1,000 mL pantoprazole 40 mg tablet,delayed 40 mg PO DAILY #90 tabs 06/20/24 release (Protonix) Allergies Allergy/AdvReac Type Severity Reaction Status Date / Time codeine [Codeine] Allergy Unknown NAUSEA AND Verified 06/21/24 11:28 VOMITING, nausea pregabalin Allergy Unknown Confusion Verified 06/21/24 11:28 rosuvastatin [Crestor] Allergy Unknown joint pain Verified 06/21/24 11:28 NSAIDS (Non-Steroidal Allergy Swelling Verified 06/21/24 11:28 Anti-Inflamma oxycodone [From OxyContin] Allergy Itching Verified 06/21/24 11:28 [place] Insulin Allergy Unknown severe Uncoded 06/21/24 11:28 itching tapes, adhesives, tegaderm, Allergy Unknown rash Uncoded 06/21/24 11:28 st wellbutrin Allergy Unknown rash Uncoded 06/21/24 11:28 lexapro AdvReac Severe lethargic Uncoded 06/21/24 11:28 Review of Systems 2 Review of Systems: Yes all other systems are reviewed and are negative PMFSH Past Medical History Medical History Bilateral cataracts Schizoaffective disorder Confusion Skin rash Vitamin D deficiency HTN (hypertension) HLD (hyperlipidemia) Cellulitis of leg, left Skin excoriation Urinary urgency Encounter to establish care Arthralgia of shoulder region, left Cervical spondylitis with radiculitis Myofascial pain on left side Depression OCD (obsessive compulsive disorder) DJD (degenerative joint disease) SI (sacroiliac) joint dysfunction Fibromyalgia GERD (gastroesophageal reflux disease) Neuropathy Diabetes Surgical History History of laparoscopic cholecystectomy (~05/24/24) H/O mastectomy Hx of appendectomy H/O exploratory laparotomy History of surgery Family History Family History Father No problems noted. Mother No problems noted. Social History Social History Household Members: Spouse Household Members Other:: 1 Housing: House Do you presently have visiting nurse or other home services: No Alcohol intake: former Comment: SI 1:1 Patient Tobacco Use Status: Never used Tobacco Tobacco use type: Cigarette e-Cigarette/Vaping Use: Never Used Second Hand Smoke Exposure: No Advance Directives: Yes Advance Directives on File: Yes Advance Directives Date on File: 06/01/24 Do you have a plan to hurt others: No Plan service: No Current occupational status: retired Cognitive needs: Yes (cane) Hearing needs: Yes (hearing aide) Vision needs: Yes (glasses) Physical Exam ED Vital Signs: Vital Signs - 24 hr 06/21/24 11:27 06/21/24 15:26 06/21/24 15:26 Temperature 97.2 F 98.1 F Pulse Rate 80 78 80 Respiratory Rate 18 22 H Blood Pressure 149/81 H 159/69 H 159/69 H Pulse Oximetry 98 98 Oxygen Delivery Method Room Air Room Air 06/21/24 15:27 06/21/24 15:28 Temperature Pulse Rate 83 88 Respiratory Rate Blood Pressure 163/78 H 161/65 H Pulse Oximetry Oxygen Delivery Method BMI result Body Mass Index 27.5 Appearance: Alert. Oriented X3. No acute distress. Head: normocephalic, atraumatic. Eyes: Pupils equal, round and reactive to light. ENT: Pharynx normal. No tonsillar swelling or exudate. Neck: Normal inspection. Neck supple. CVS: Normal heart rate and rhythm. Pulses normal. Respiratory: No respiratory distress. Breath sounds normal. Abdomen: Soft and nontender. +BS x4 Skin: Skin warm and dry. Normal skin color. Normal skin turgor. No rashes. Extremities: No lower extremity edema. No joint swelling. Neuro/psych: Oriented X 3. No motor deficit. No sensory deficit. CN II-XII intact. pressured speech and with normal cognition. mood is okay no SI Course Course Course Narrative: This is a Rapid Medical Exam performed in triage by Smita Phillip PA-C. Full HPI, ROS and PE to be performed by primary ED provider. 74-year-old female with a past medical history of gastritis, diabetes, hypothyroid, fibromyalgia schizoaffective, HTN, HLD, OCD, GERD presenting to the ED c/o decreased PO intake x4 days, had EGD yesterday by Dr. Russo with biopsies & wire guided balloon dilation. Admits to nausea x3 mos. Also reports black stool this AM. Took Pepto Bismol PE: talking in complete sentences, nontoxic appearing, uvula midline, no posterior oropharyngeal swelling Plan: labs, UA, orthos Reevaluation(s) Reevaluation #1: Dr. Crespo came to the bedside to evaluate the patient - recommending compazine, CT scan with oral and IV contrast. if able to tolerate PO liquids she can likely be discharged home pending CT results. if she is unable to tolerate she may need to be admitted with plan to repeat EGD and dilatation of the duodenal stricture Time: 16:53 Medications Administered Discontinued Medications Generic Name Dose Route Start Last Admin Trade Name Jose R PRN Reason Stop Dose Admin Magnesium Sulfate 2 gm in 50 mls @ 25 mls/hr 06/21/24 12:15 06/21/24 18:00 Magnesium Sulfate/H2o IV 06/21/24 14:14 Infused ONCE ONE Infusion Lactated Ringer's 1,000 mls @ 999 mls/hr 06/21/24 17:15 06/21/24 17:10 Lr IV 06/21/24 18:15 999 mls/hr .Q1H1M GLENN Administration Ondansetron HCl 4 mg 06/21/24 16:45 06/21/24 17:10 Ondansetron Hcl 4 Mg/2 Ml Vial IVPUSH 06/21/24 16:46 4 mg ONCE ONE Administration Prochlorperazine Edisylate 10 mg 06/21/24 16:47 06/21/24 17:10 Prochlorperazine Edisylate 10 Mg/2 Ml Vial IVPUSH 06/21/24 16:48 10 mg ONCE ONE Administration Medical Decision Making Medical Decision Making MDM Narrative: 74 yo female with history of DM2, HTN, HLD, depression, schizoaffective disorder, history of SI with OD attempt in 2022, hypothyroidism, fibromylagia, OCS, history of recent admissions to [facility] for acute cholecystitis 05/24-05/27 s/p cholecystectomy and 06/01-06/04 for gastritis & duodenitis who presents to the ER for evaluation of ongoing nausea, poor PO intake for the last several days to weeks. She had an EGD with Dr. Russo yesterday that showed gastritis, Schatzki ring and duodenaal structure s/p dilatation, hiatial hernia. patient has no vomiting, no pain. perforation less likely. Spoke with both Dr. Russo and Dr. Crespo - recommending CT scan abd with PO contrast (as able) and IV. may require admission if unable to tolerate PO. signed out to Grace GARNER who will f/u CT scan results, clinic course and determine dispo Differential Diagnosis Differential Diagnoses: The differential diagnosis associated with the presentation includes duodenal stricture 2/2 mass/cancer, OCD with somataform disorder, malignancy causing poor PO intake and nausea, untreated schizoaffective disorder Admission/Observation Consideration of admission/observation: Escalation of care including admission/observation considered Consult Healthcare Provider Management of the patient was discussed with: J2Ee Programmer Dr. Crespo and Dr. Russo Lab Data MDM Lab Attestation statement: I reviewed the patient's lab results. thrombocytosis which is chronic, hypomagnesemia, other electrolytes are unremarkable, normal BUN and creatinine 06/21/24 11:43 06/21/24 11:43 Labs: Lab Results 06/21/24 06/21/24 Range/Units 11:43 15:31 WBC 6.6 (4.8-10.8) X10*3/uL RBC 4.09 L (4.20-5.50) X10*6/uL Hgb 12.6 (12.0-16.0) g/dl Hct 37.6 (37.0-47.0) % MCV 91.9 (80.0-98.0) fL MCH 30.8 (27.0-33.0) pg MCHC 33.5 (31.0-35.0) g/dl RDW 12.9 (11.0-16.0) % Plt Count 451 H (160-400) X10*3/uL MPV 8.4 L (9.4-12.3) fL Immature Gran % (Auto) 0.8 H (0.0-0.4) % Neut % (Auto) 76.4 H (45-73) % Lymph % (Auto) 11.6 L (20-40) % [place] % (Auto) 9.8 (2-11) % Eos % (Auto) 0.8 (0-4) % Baso % (Auto) 0.6 (0-2) % Lymph # (Auto) 0.8 L (1.2-4.9) X10*3/uL [place] # (Auto) 0.6 (0.1-1.2) X10*3/uL Eos # (Auto) 0.1 (0.0-0.4) X10*3/uL Baso # (Auto) 0.0 (0.0-0.2) X10*3/uL Abs Immat Gran (auto) 0.05 H (0.00-0.03) X10*3/uL Absolute Neuts (auto) 5.0 (2.0-8.3) x10*3/uL Absolute Nucleated RBC 0.000 (0.0-0.012) X10*3/uL Nucleated RBC % (auto) 0.0 (0.0-0.2) /100WBC Sodium 140 (135-145) mmol/L Potassium 3.8 (3.3-5.1) mmol/L Chloride 104 (96-108) mmol/L Carbon Dioxide 25 (22-29) mmol/L Anion Gap 15 (12-20) BUN 10 (9-16) mg/dL Creatinine 0.66 (0.5-1.4) mg/dL Estim Creat Clear Calc 66.6 Estimated GFR > 60 Random Glucose 148 H (60-115) mg/dL Calcium 9.1 D (8.4-10.2) mg/dL Magnesium 1.1 L* (1.6-2.6) mg/dL Total Bilirubin 0.5 (0.0-1.0) mg/dL Direct Bilirubin 0.3 (0.0-0.5) mg/dL AST 45 H (5-31) U/L ALT 25 (0-31) U/L Alkaline Phosphatase 83 (39-117) U/L Total Protein 6.6 (6.5-8.0) g/dL Albumin 3.4 L (3.5-5.0) g/dL Urine Color Yellow Urine Appearance Cloudy Urine pH 5.5 (5.0-9.0) Ur Specific [place] 1.020 (1.005-1.025) Urine Protein Trace (Neg-Trace) mg/dL Urine Glucose (UA) Negative (Negative) mg/dL Urine Ketones >=160 (Negative) mg/dL Urine Blood Negative (Negative) Urine Nitrite Negative (Negative) Ur Leukocyte Esterase Negative (Negative) Independent Historian Clinical information obtained from an independent historian. History obtained from or confirmed by: Friend External Record Review External record reviewed: Office record, Outpatient record, Prior outpatient labs and Prior outpatient radiology Prescription Management I considered prescription management with: Other (antiemetic, antipsychotic) Chronic Conditions Patient?s care impacted by: Diabetes and Other (schizoaffective disorder) Critical Care Time Critical Care Time Critical Care Time: Yes Total Critical Care Time: 33 Attestation: I have personally provided critical care time exclusive of time spent on separately billable procedures. Time includes review of lab data, radiology results, discussion with consultants, and monitoring for potential decompensation. Intervention performed as documented. Discharge Plan Discharge Clinical Impression: Intractable nausea, Hypomagnesemia, Duodenal stricture Patient Disposition: Still a Patient Prescriptions: No Action (DME) OneTouch Ultra Test Strip See Rx Instructions .Route Qty: 100 2RF Rx Instructions: check BS 2-3x/day gabapentin 400 mg capsule 400 mg PO TID 30 Days Qty: 90 1RF simvastatin 40 mg tablet 40 mg PO BEDTIME Qty: 90 0RF levothyroxine 125 mcg tablet 125 mcg PO DAILY@0630 Qty: 90 1RF pantoprazole [Protonix] 40 mg tablet,delayed release (DR/EC) 40 mg PO DAILY Qty: 90 3RF magnesium oxide 400 mg (241.3 mg magnesium) tablet 400 mg PO DAILY Qty: 30 0RF diclofenac sodium 75 mg tablet,delayed release (DR/EC) 75 mg PO BID PRN (Reason: Pain) hydroxyzine pamoate 25 mg capsule 25 mg PO BID PRN (Reason: Itching) acetaminophen 325 mg Tablet 650 mg PO Q6H PRN (Reason: Pain, Mild 1-3,Fever,Headache) Qty: 30 0RF insulin glargine [Basaglar KwikPen U-100 Insulin] 100 unit/mL (3 mL) insulin pen 46 unit subcut DAILY ipratropium bromide 42 mcg (0.06 %) spray,non-aerosol 2 spray intranasal QID PRN (Reason: Allergy Symptoms) guaifenesin 100 mg/5 mL Liquid 100 mg PO Q4H PRN (Reason: Cough) Qty: 1000 0RF lorazepam 0.5 mg tablet 0.5 - 1 mg PO BID PRN (Reason: ANXIETY OR SLEEP) aspirin [Adult Aspirin Regimen] 81 mg tablet,delayed release (DR/EC) 81 mg PO BEDTIME biotin 1 mg capsule 1 mg PO DAILY omega 6-fbl-pvg-fish oil [Fish Oil] 1,000 mg (120 mg-180 mg) capsule 1 cap PO DAILY PRN (Reason: supplemnt) levocetirizine [Xyzal] 5 mg tablet 5 mg PO DAILY PRN (Reason: Allergy Symptoms) (DME) OneTouch Ultra Test Strip See Rx Instructions Not Applicable TID Qty: 10 Rx Instructions: As directed docusate sodium [Colace] 100 mg capsule 100 mg PO DAILY PRN (Reason: Constipation) pyridoxine (vitamin B6) 100 mg tablet 100 mg PO DAILY 90 Days Qty: 90 3RF Print Language: Yoruba
[2024-06-21 11:47] LABS: MANUAL DIFF FLAG NO
[2024-06-21 11:50] LABS: Basophils Percent Auto 0.6 % (0-2); Eosinophils Absolute Auto 0.1 X10*3/uL (0.0-0.4); Eosinophils Percent Auto 0.8 % (0-4); Hematocrit 37.6 % (37.0-47.0); Hemoglobin 12.6 g/dl (12.0-16.0); Imm Gran Abs Auto 0.05 X10*3/uL (0.00-0.03); Imm Gran Pct Auto 0.8 % (0.0-0.4); Lymphocytes Absolute Auto 0.8 X10*3/uL (1.2-4.9); Lymphocytes Percent Auto 11.6 % (20-40); Mean Corpuscular HGB Conc 33.5 g/dl (31.0-35.0); Mean Corpuscular Hemoglobin 30.8 pg (27.0-33.0); Mean Corpuscular Volume 91.9 fL (80.0-98.0); Mean Platelet Volume 8.4 fL (9.4-12.3); Monocytes Absolute Auto 0.6 X10*3/uL (0.1-1.2); Monocytes Percent Auto 9.8 % (2-11); Neutrophils Percent Auto 76.4 % (45-73); Platelet Count 451 X10*3/uL (160-400); Red Blood Count 4.09 X10*6/uL (4.20-5.50); Red Cell Distribution Width 12.9 % (11.0-16.0); White Blood Count 6.6 X10*3/uL (4.8-10.8)
[2024-06-21 12:09] LABS: Alanine Aminotransferase 25 U/L (0-31); Albumin Level 3.4 g/dL (3.5-5.0); Alkaline Phosphatase 83 U/L (39-117); Anion Gap 15 (12-20); Aspartate Amino Transferase 45 U/L (5-31); Bilirubin Direct 0.3 mg/dL (0.0-0.5); Bilirubin Total 0.5 mg/dL (0.0-1.0); Blood Urea Nitrogen 10 mg/dL (9-16); Calcium 9.1 mg/dL (8.4-10.2); Carbon Dioxide 25 mmol/L (22-29); Chloride 104 mmol/L (96-108); Creatinine Clr Calc Pharmacy 66.6; Estimated Glomerular Filt Rate > 60; Glucose Random 148 mg/dL (60-115); Potassium 3.8 mmol/L (3.3-5.1); Sodium 140 mmol/L (135-145); Total Protein 6.6 g/dL (6.5-8.0)
[2024-06-21 12:15] LABS: Magnesium 1.1 mg/dL (1.6-2.6)
--- NOTE | 2024-06-21 12:15 | ECG_ITS ---
Test Reason : hypomag Blood Pressure : */* mmHG Vent. Rate : 70 BPM Atrial Rate : 70 BPM P-R Int : 128 ms QRS Dur : 72 ms QT Int : 426 ms P-R-T Axes : 52 -14 16 degrees QTcB Int : 460 ms Normal sinus rhythm Minimal voltage criteria for LVH, may be normal variant ( R in aVL ) Borderline ECG When compared with ECG of 01-Jun-2024 14:20, No significant change was found Referred By: Smita Phillip Electronically Signed By: Forest Kelly
[2024-06-21 15:38] LABS: Appearance Urine Cloudy; Color Urine Yellow; Glucose Urine UA Negative (Negative); Leukocyte Esterase Urine Negative (Negative); Nitrite Urine Negative (Negative); PH 5.5 (5.0-9.0); Urine Blood Negative (Negative); Urine Ketones >=160 mg/dL (Negative); Urine Protein Trace mg/dL (Neg-Trace)
[2024-06-21] MEDS: Magnesium Sulfate/H2O 2 GM/50 ML PIGGYBACK IV (15:46)
[2024-06-21] MEDS: Prochlorperazine Edisylate 10 MG/2 ML VIAL IVPUSH (17:10)
[2024-06-21] MEDS: Lactated Ringers 1,000 ML 999 ML IV (17:10)
[2024-06-21] MEDS: ondansetron HCL 4 MG/2 ML VIAL IVPUSH (17:10)
--- NOTE | 2024-06-21 17:16 | PC.NURSE ---
22gIV placed in the left forearm - IVF/medication administered per provider order. effectiveness pending. pt provided w/ oral contrast via CT. pending CT scan at this time.
--- NOTE | 2024-06-21 19:12 | PC.NURSE ---
ASSUMED CARE OF PATIENT AT THIS TIME. FAMILY AT BEDSIDE HELPED PT USE BEDSIDE COMMODE, COMMODE BAG REPLACED AND PATIENT HELPED BACK TO BED. NO REPORTS OF NAUSEA AT THIS TIME
[2024-06-21] MEDS: Diatrizoate Meglumine, Sodium 30 ML SOLUTION PO (20:45)
[2024-06-21] MEDS: iohexoL 350 MG/ML 100 ML INFUS..BTL 85 ML IV (20:46)
--- NOTE | 2024-06-21 23:08 | PM.IMHP ---
History of Present Illness Date of Service: 06/21/24 Chief Complaint: Nausea ; poor po intake This is a 73-year-old female with pertinent history of hypothyroidism, insulin-dependent diabetes mellitus, hypertension, mixed hyperlipidemia, mood disorder, fibromyalgia who presents to the emergency department for evaluation of nausea and poor p.o. intake. Patient was recently admitted with gastritis and duodenitis on 06/01/24. She was treated with IV Protonix, IV fluids, antiemetics with improvement of symptoms and discharged on 06/04/2024. Patient underwent EGD by Dr. Russo on 06/20 which revealed gastritis, Schatzki's ring with hiatal hernia and duodenal stricture. Duodenal stricture was dilated and patient was discharged home. Patient states on the day of presentation she has been having intractable nausea and unable to tolerate p.o. intake. Denies abdominal discomfort, vomiting or diarrhea. No fever, chills, chest pain, palpitations, changes in urinary habits. Gastroenterology was consulted who requested admission. Imaging with duodenitis. Review of Systems Constitutional: Constitutional: Reports fatigue, Reports lethargy, Reports malaise, Reports poor appetite and Reports weakness Cardiovascular: Cardiovascular: Reports no additional cardiovascular complaints Respiratory: Respiratory: Reports no additional respiratory complaints Gastrointestinal: Gastrointestinal: Reports nausea Genitourinary: Genitourinary: Reports no additional female genitourinary complaints Neurologic: Reports weakness Endocrine: Endocrine: Reports fatigue [facility] Medical History Bilateral cataracts Schizoaffective disorder Confusion Skin rash Vitamin D deficiency HTN (hypertension) HLD (hyperlipidemia) Cellulitis of leg, left Skin excoriation Urinary urgency Encounter to establish care Arthralgia of shoulder region, left Cervical spondylitis with radiculitis Myofascial pain on left side Depression OCD (obsessive compulsive disorder) DJD (degenerative joint disease) SI (sacroiliac) joint dysfunction Fibromyalgia GERD (gastroesophageal reflux disease) Neuropathy Diabetes Family History Father No problems noted. Mother No problems noted. Surgical History History of laparoscopic cholecystectomy (~05/24/24) H/O mastectomy Hx of appendectomy H/O exploratory laparotomy History of surgery Social History Household Members: Spouse Household Members Other:: 1 Housing: House Do you presently have visiting nurse or other home services: No Alcohol intake: former Comment: SI 1:1 Patient Tobacco Use Status: Never used Tobacco Tobacco use type: Cigarette e-Cigarette/Vaping Use: Never Used Second Hand Smoke Exposure: No Advance Directives Date on File: 06/01/24 service: No Current occupational status: retired Cognitive needs: Yes (cane) Hearing needs: Yes (hearing aide) Vision needs: Yes (glasses) Meds Allergies Allergy/AdvReac Type Severity Reaction Status Date / Time codeine [Codeine] Allergy Unknown NAUSEA AND Verified 06/21/24 11:28 VOMITING, nausea pregabalin Allergy Unknown Confusion Verified 06/21/24 11:28 rosuvastatin [Crestor] Allergy Unknown joint pain Verified 06/21/24 11:28 NSAIDS (Non-Steroidal Allergy Swelling Verified 06/21/24 11:28 Anti-Inflamma oxycodone [From OxyContin] Allergy Itching Verified 06/21/24 11:28 [place] Insulin Allergy Unknown severe Uncoded 06/21/24 11:28 itching tapes, adhesives, tegaderm, Allergy Unknown rash Uncoded 06/21/24 11:28 st wellbutrin Allergy Unknown rash Uncoded 06/21/24 11:28 lexapro AdvReac Severe lethargic Uncoded 06/21/24 11:28 Home Medications ?Medication ?Instructions ?Recorded ?Confirmed ?Last Taken ?Type aspirin 81 mg tablet,delayed 81 mg PO BEDTIME 01/01/21 06/20/24 06/13/24 History release (Adult Aspirin Regimen) lorazepam 0.5 mg tablet 0.5 - 1 mg PO BID PRN ANXIETY OR 01/01/21 06/20/24 Unknown History SLEEP biotin 1 mg capsule 1 mg PO DAILY 05/17/21 06/20/24 Unknown History omega 9-hbp-mpx-fish oil 1,000 mg 1 cap PO DAILY PRN supplemnt 05/17/21 06/20/24 06/13/24 History (120 mg-180 mg) capsule (Fish Oil) blood sugar diagnostic (OneTouch #10 ea 05/27/21 06/20/24 Unknown History Ultra Test strips) levocetirizine 5 mg tablet (Xyzal) 5 mg PO DAILY PRN Allergy Symptoms 09/09/21 06/20/24 Unknown History docusate sodium 100 mg capsule 100 mg PO DAILY PRN Constipation 12/28/23 06/20/24 Unknown History (Colace) diclofenac sodium 75 mg 75 mg PO BID PRN Pain 05/23/24 06/20/24 Unknown History tablet,delayed release hydroxyzine pamoate 25 mg capsule 25 mg PO BID PRN Itching 05/23/24 06/20/24 Unknown History insulin glargine 100 unit/mL (3 46 unit subcut DAILY 06/01/24 06/20/24 Unknown History mL) subcutaneous pen (Basaglar KwikPen U-100 Insulin) ipratropium bromide 42 mcg (0.06 2 spray intranasal QID PRN Allergy 06/01/24 06/20/24 Unknown History %) nasal spray Symptoms Physical Exam Vital Signs and Narrative: Vital Signs: Last Vital Signs Temp 98.2 F 06/21/24 22:01 Pulse 71 06/21/24 22:01 Resp 16 06/21/24 22:01 BP 146/80 H 06/21/24 22:01 Pulse Ox 98 06/21/24 22:01 O2 Del Method Room Air 06/21/24 22:01 BMI result Body Mass Index 27.5 Elderly female lying in bed in no distress Neck supple, no JVD Regular rate and rhythm, S1-S2 heard Regular breath sounds bilaterally, no wheezing or crackles appreciated Abdomen soft nontender, no guarding, no rigidity Patient is awake, alert and oriented to self, place, time and person ; no focal motor deficit Psych: Normal mood No pedal edema Results Labs 06/21/24 11:43 06/21/24 11:43 Labs: Laboratory Results - last 24 hr 06/21/24 06/21/24 11:43 15:31 MCV 91.9 MCH 30.8 MCHC 33.5 RDW 12.9 Plt Count 451 H MPV 8.4 L Immature Gran % (Auto) 0.8 H Neut % (Auto) 76.4 H Lymph % (Auto) 11.6 L [place] % (Auto) 9.8 Eos % (Auto) 0.8 Baso % (Auto) 0.6 Lymph # (Auto) 0.8 L [place] # (Auto) 0.6 Eos # (Auto) 0.1 Baso # (Auto) 0.0 Abs Immat Gran (auto) 0.05 H Absolute Neuts (auto) 5.0 Absolute Nucleated RBC 0.000 Nucleated RBC % (auto) 0.0 Anion Gap 15 Estim Creat Clear Calc 66.6 Estimated GFR > 60 Random Glucose 148 H Calcium 9.1 D Magnesium 1.1 L* Total Bilirubin 0.5 Direct Bilirubin 0.3 AST 45 H ALT 25 Alkaline Phosphatase 83 Total Protein 6.6 Albumin 3.4 L Urine Color Yellow Urine Appearance Cloudy Urine pH 5.5 Ur Specific [place] 1.020 Urine Protein Trace Urine Glucose (UA) Negative Urine Ketones >=160 Urine Blood Negative Urine Nitrite Negative Ur Leukocyte Esterase Negative Assessment and Plan (1) Intractable nausea: Status: Acute (2) Duodenitis: Status: Acute Plan This is a 73-year-old female with pertinent history of hypothyroidism, insulin-dependent diabetes mellitus, hypertension, mixed hyperlipidemia, mood disorder, fibromyalgia who presents to the emergency department for evaluation of nausea and poor p.o. intake. #. Intractable nausea with poor p.o. intake: Imaging with duodenitis. Will admit patient with IV crystalloid resuscitation, IV Protonix and antiemetics. Clear liquid diet and advance as tolerated. Consulted Gastroenterology, appreciate assistance. Patient underwent EGD by Dr. Russo on 06/20 which revealed gastritis, Schatzki's ring with hiatal hernia and duodenal stricture s/p dilatation. #. Insulin-dependent diabetes mellitus: Initiating basal plus insulin regimen #. Hypomagnesemia due to GI losses: Repleted #. Mixed hyperlipidemia: On statin #. Hypothyroidism: On Synthroid #. Mood disorder: Continue home mood stabilizers Med rec pending DVT prophylaxis: Lovenox Full code Quality Stroke Does the patient have a stroke diagnosis?: No VTE Prior VTE?: No VTE Risk Level:: Medical - moderate - high VTE Device Contraindication: Treatment Not Indicated VTE Drug Contraindication: N/A - Med Ordered
[2024-06-22] MEDS: 0.9 % Sodium Chloride Flush 3 ML SYRINGE IVFLUSH (00:10)
[2024-06-22] MEDS: Lactated Ringers 1,000 ML 100 ML IVCONT (00:11)
[2024-06-22] MEDS: Pantoprazole Sodium 40 MG/10 ML VIAL IVPUSH ×3 (00:12→16:14)
[2024-06-22] MEDS: Enoxaparin Sodium 40 MG/0.4 ML SYRINGE SUBCUT ×2 (00:14→22:54)
[2024-06-22 00:15] VITALS: BP 165/79; PULSE 72; RESP 23; TEMP 36.6; O2SAT 98
[2024-06-22] MEDS: Acetaminophen 325 MG TABLET 650 MG PO (00:21)
[2024-06-22 00:23] LABS: Glucose, Whole Blood 109 mg/dL (60-115)
[2024-06-22 05:35] VITALS: BP 154/76; PULSE 78; RESP 20; TEMP 36.7; O2SAT 95
[2024-06-22 05:40] LABS: MANUAL DIFF FLAG NO
[2024-06-22 05:42] LABS: Basophils Absolute Auto 0.1 X10*3/uL (0.0-0.2); Basophils Percent Auto 0.6 % (0-2); Eosinophils Absolute Auto 0.1 X10*3/uL (0.0-0.4); Eosinophils Percent Auto 1.5 % (0-4); Hematocrit 36.8 % (37.0-47.0); Hemoglobin 12.5 g/dl (12.0-16.0); Imm Gran Abs Auto 0.04 X10*3/uL (0.00-0.03); Imm Gran Pct Auto 0.5 % (0.0-0.4); Lymphocytes Absolute Auto 0.9 X10*3/uL (1.2-4.9); Lymphocytes Percent Auto 11.3 % (20-40); Mean Corpuscular Hemoglobin 30.5 pg (27.0-33.0); Mean Corpuscular Volume 89.8 fL (80.0-98.0); Mean Platelet Volume 8.3 fL (9.4-12.3); Monocytes Absolute Auto 0.8 X10*3/uL (0.1-1.2); Monocytes Percent Auto 10.1 % (2-11); Neutrophils Absolute Auto 5.9 x10*3/uL (2.0-8.3); Platelet Count 437 X10*3/uL (160-400); Red Cell Distribution Width 12.9 % (11.0-16.0); White Blood Count 7.8 X10*3/uL (4.8-10.8)
[2024-06-22 05:57] LABS: Anion Gap 16 (12-20); Blood Urea Nitrogen 6 mg/dL (9-16); Calcium 8.8 mg/dL (8.4-10.2); Carbon Dioxide 22 mmol/L (22-29); Chloride 104 mmol/L (96-108); Creatinine Clr Calc Pharmacy 70.9; Estimated Glomerular Filt Rate > 60; Glucose Random 116 mg/dL (60-115); Potassium 3.4 mmol/L (3.3-5.1); Sodium 139 mmol/L (135-145)
[2024-06-22 07:13] LABS: Glucose, Whole Blood 116 mg/dL (60-115)
[2024-06-22 09:17] LABS: Magnesium 1.4 mg/dL (1.6-2.6)
--- NOTE | 2024-06-22 09:35 | PHA.MEDREC ---
Addendum entered by Fernandez Ontiveros 06/22/24 11:49: reviewed Original Note: Pharmacy Consult ? Medication Reconciliation Pharmacy has completed the medication reconciliation. Spoke to pt to confirm meds (had their own med list with them and compared). Pt reports not using Cymbalta , Latuda, or guaifenesain.
[2024-06-22] MEDS: Magnesium Sulfate/H2O 2 GM/50 ML PIGGYBACK IV (11:03)
--- NOTE | 2024-06-22 11:10 | PC.NURSE ---
pt medicated per JUN- pt still rec LR @ 100mls/hr no complaints of pain at this time
--- NOTE | 2024-06-22 11:55 | P.CNGI_ITS ---
History of Present Illness Data of Consult Service Date: 06/22/24 Requesting physician: Manuel Joy Primary Care Provider: Jaye Ortega MD [facility] Reason for consult: intractable nausea, reduced po intake 73 YF with hypothyroidism, insulin-dependent diabetes mellitus, hypertension, mixed hyperlipidemia, mood disorder, fibromyalgia seen at [facility] on 06/21/24 for evaluation of nausea and poor p.o. intake. Pt was admitted on 05/24/24 for acute cholecystitis, underwent cholecystectomy, and was discharged home on 05/27. Patient was readmitted 06/01/24 with intractable nausea, without vomiting, and an inability to keep oral intake. A CT scan reveals somewhat prominent thickening along the gastric pylorus and proximal duodenum, with distal gastritis/duodenitis suspected She was treated with IV Protonix, IV fluids, antiemetics with improvement of symptoms and discharged on 06/04/2024. Patient underwent EGD by Dr. Russo on 06/20 which revealed gastritis, Schatzki's ring with hiatal hernia and duodenal stricture. Duodenal stricture was dilated to 10 mm and patient was discharged home. History obtained from the patient and her cousin who was at the bedside (pt is hard of hearing) Patient reports nausea for the past few months and early satiety after she had Lap Leigh. Although pt states her nausea resolved immediately after she had the EGD and she felt terrible with recurrent nausea when she woke up the next morning. Review of her records indicates her daughter and cousin called evening after EGD stating pt was continuing to have nausea symptoms with poor PO intake. She has been taking few sips of crys joycelyn and was able to take 5 ozs of Ensure Clear after her EGD. Pt was advised to come to [facility] since she continued to complain of intractable nausea and inability to take p.o. diet. Pt denies smoking or ETOH abuse. Cousin reported pt has schizoaffective disorder and past hx of suicidal attempts if she gets frustrated. She admits to taking a baby aspirin daily and takes Voltaren 75 twice daily for myofascial pain and arthralgias Pt denied abdominal discomfort, vomiting or diarrhea, fever, chills, chest pain, palpitations, changes in urinary habits. 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 She lives by herself and has 2 cousins who live close by and are very supportive Her daughter lives in [place] [facility] in ED showed hypo-magnesemia which was corrected 06/21/[address] SCAN SHOWED: There is mild stranding and soft tissue thickening about the proximal duodenum. Duodenitis possible. Of note, the degree of edema is decreased versus the recent comparison study. Review of Systems 2 Constitutional: Constitutional: Reports fatigue, Reports lethargy, Reports malaise, Reports poor appetite and Reports weakness Cardiovascular: Cardiovascular: Reports no additional cardiovascular complaints Respiratory: Respiratory: Reports no additional respiratory complaints Gastrointestinal: Gastrointestinal: Reports nausea Genitourinary: Genitourinary: Reports no additional female genitourinary complaints Neurologic: Reports weakness Endocrine: Endocrine: Reports fatigue PMFSH Past Medical History Medical History Bilateral cataracts Schizoaffective disorder Confusion Skin rash Vitamin D deficiency HTN (hypertension) HLD (hyperlipidemia) Cellulitis of leg, left Skin excoriation Urinary urgency Encounter to establish care Arthralgia of shoulder region, left Cervical spondylitis with radiculitis Myofascial pain on left side Depression OCD (obsessive compulsive disorder) DJD (degenerative joint disease) SI (sacroiliac) joint dysfunction Fibromyalgia GERD (gastroesophageal reflux disease) Neuropathy Diabetes Family History Family History Father No problems noted. Mother No problems noted. Surgical History Surgical History History of laparoscopic cholecystectomy (~05/24/24) H/O mastectomy Hx of appendectomy H/O exploratory laparotomy History of surgery Social History Social History Household Members: Spouse Household Members Other:: 1 Housing: House Do you presently have visiting nurse or other home services: No Alcohol intake: former Comment: SI 1:1 Patient Tobacco Use Status: Never used Tobacco Tobacco use type: Cigarette Smoked in Last 30 Days: No e-Cigarette/Vaping Use: Never Used Second Hand Smoke Exposure: No Use of substances other than those prescribed or required for medical reasons: No Advance Directives: Yes Advance Directives on File: Yes Advance Directives Date on File: 06/01/24 Do you have a plan to hurt others: No Plan service: No Current occupational status: retired Cognitive needs: Yes (cane) Hearing needs: Yes (hearing aide) Vision needs: Yes (glasses) Meds Allergies Allergy/AdvReac Type Severity Reaction Status Date / Time codeine [Codeine] Allergy Unknown NAUSEA AND Verified 06/21/24 11:28 VOMITING, nausea pregabalin Allergy Unknown Confusion Verified 06/21/24 11:28 rosuvastatin [Crestor] Allergy Unknown joint pain Verified 06/21/24 11:28 NSAIDS (Non-Steroidal Allergy Swelling Verified 06/21/24 11:28 Anti-Inflamma oxycodone [From OxyContin] Allergy Itching Verified 06/21/24 11:28 [place] Insulin Allergy Unknown severe Uncoded 06/21/24 11:28 itching tapes, adhesives, tegaderm, Allergy Unknown rash Uncoded 06/21/24 11:28 st wellbutrin Allergy Unknown rash Uncoded 06/21/24 11:28 lexapro AdvReac Severe lethargic Uncoded 06/21/24 11:28 Active Medications: Current Medications Acetaminophen (Acetaminophen 325 Mg Tablet) 650 mg PO Q6H PRN PRN Reason: Pain, Mild 1-3,fever,headache Last Admin: 06/22/24 00:21 Dose: 650 mg Aspirin (Aspirin Enteric Coated 81 Mg Tablet.Dr) 81 mg PO BEDTIME GLENN Calcium Carbonate (Calcium Carbonate 750 Mg Tab.Chew) 750 mg PO Q4H PRN PRN Reason: Heartburn Dextrose (Dextrose 50 % 25 Gm/50 Ml Syringe) 25 gm IVPUSH Q15M PRN; Protocol PRN Reason: per Hypoglycemia Standing Ord. Enoxaparin Sodium (Enoxaparin Sodium 40 Mg/0.4 Ml Syringe) 40 mg SUBCUT Q24H GLENN Last Admin: 06/22/24 00:14 Dose: 40 mg Gabapentin (Gabapentin 400 Mg Capsule) 400 mg PO TID GLENN Glucose (Glucose Gel 15 Gm Gel..Gram.) 15 gm PO Q15M PRN; Protocol PRN Reason: per Hypoglycemia Standing Ord. Hydroxyzine HCl (Hydroxyzine Hcl 25 Mg Tablet) 25 mg PO BID PRN PRN Reason: Itching Magnesium Sulfate (Magnesium Sulfate/H2o) 2 gm in 50 mls @ 25 mls/hr IV ONCE ONE Stop: 06/22/24 12:48 Last Admin: 06/22/24 11:03 Dose: 25 mls/hr Lactated Ringer's (Lr) 1,000 mls @ 80 mls/hr IVCONT .[id number] [facility] Insulin Human Lispro (Insulin Lispro 100 Unit/Ml 3 Ml Vial) 0 unit SUBCUT QIDACHS [facility]; Protocol Last Admin: 06/22/24 07:10 Dose: Not Given Levothyroxine Sodium (Levothyroxine Sodium 125 Mcg Tablet) 125 mcg PO DAILY@0630 [facility] Lorazepam (Lorazepam 0.5 Mg Tablet) 0.5 mg PO BEDTIME PRN PRN Reason: anxiety Magnesium Hydroxide (Milk Of Magnesia 30 Ml Oral.Susp) 30 ml PO DAILY PRN PRN Reason: Constipation Magnesium Oxide (Magnesium Oxide 400 Mg Tablet) 400 mg PO DAILY [facility] Melatonin (Melatonin 3 Mg Tablet) 6 mg PO BEDTIME PRN PRN Reason: Insomnia Ondansetron HCl (Ondansetron Hcl 4 Mg/2 Ml Vial) 4 mg IVPUSH Q8H PRN PRN Reason: Nausea and Vomiting Pantoprazole Sodium (Pantoprazole Sodium 40 Mg/10 Ml Vial) 40 mg IVPUSH BID@0630,1630 [facility] Last Admin: 06/22/24 05:30 Dose: 40 mg Sodium Chloride (0.9 % Sodium Chloride Flush 3 Ml Syringe) 3 ml IVFLUSH QSHIFT [facility] Last Admin: 06/22/24 07:10 Dose: Not Given Home Medications ?Medication ?Instructions ?Recorded ?Confirmed ?Last Taken ?Type aspirin 81 mg tablet,delayed 81 mg PO BEDTIME 01/01/21 06/22/24 06/13/24 History release (Adult Aspirin Regimen) biotin 1 mg capsule 1 mg PO DAILY 05/17/21 06/22/24 2 Weeks Ago History ~06/08/24 omega [id number] oil 1,000 mg 1 cap PO DAILY PRN supplemnt 05/17/21 06/22/24 06/13/24 History (120 mg-180 mg) capsule (Fish Oil) blood sugar diagnostic (OneTouch #10 ea 05/27/21 06/20/24 Unknown History Ultra Test strips) levocetirizine 5 mg tablet (Xyzal) 5 mg PO BID Allergy Symptoms 09/09/21 06/22/24 2 Weeks Ago History ~06/08/24 docusate sodium 100 mg capsule 100 mg PO DAILY PRN Constipation 12/28/23 06/22/24 Unknown History (Colace) diclofenac sodium 75 mg 75 mg PO BID PRN Pain 05/23/24 06/22/24 Unknown History tablet,delayed release hydroxyzine pamoate 25 mg capsule 25 mg PO BID PRN Itching 05/23/24 06/22/24 Unknown History insulin glargine 100 unit/mL (3 46 unit subcut DAILY 06/01/24 06/22/24 2 Weeks Ago History mL) subcutaneous pen (Basaglar ~06/08/24 KwikPen U-100 Insulin) ipratropium bromide 42 mcg (0.06 2 spray intranasal QID PRN Allergy 06/01/24 06/22/24 Unknown History %) nasal spray Symptoms furosemide 20 mg tablet 20 mg PO DAILY PRN leg swelling 06/22/24 06/22/24 Unknown History lorazepam 0.5 mg tablet 0.5 mg PO BEDTIME PRN anxiety 06/22/24 06/22/24 Unknown History pantoprazole 40 mg tablet,delayed 40 mg PO DAILY@0630 06/22/24 06/22/24 2 Weeks Ago History release (Protonix) ~06/08/24 vitamin B complex 1 cap PO DAILY 06/22/24 06/22/24 2 Weeks Ago History ~06/08/24 Physical Exam 2 Vital Signs: Vital Signs: Last Vital Signs Temp 98.1 F 06/22/24 05:35 Pulse 78 06/22/24 05:35 Resp 20 06/22/24 05:35 BP 154/76 H 06/22/24 05:35 Pulse Ox 95 06/22/24 05:35 O2 Del Method Room Air 06/22/24 05:35 BMI result Body Mass Index 27.5 Const: General: cooperative, comfortable, no acute distress, alert, awake and anxious Nutritional Appearance: overweight Orientation/consciousness: p atient oriented x3 Limitations: no limitations HEENT: Head: Yes normal to inspection Ears: hearing grossly normal bilaterally Mouth: Normal oral and palatal mucosa present Eyes: Sclerae: sclerae normal Pupils: Equal, round and reactive pupils present Neck: Neck: Yes normal visual inspection Chest: Chest palpation & inspection: normal inspection of the chest Resp: Effort & Inspection: normal respiratory effort, able to speak in complete sentences, no respiratory distress and no use of accessory muscles A uscultation: clear to auscultation bilaterally Cardio: Palpation: normal PMI Rate: regular rate Rhythm: regular rhythm Heart sounds: S1 normal heart sound present, S2 normal heart sound present and no murmurs GI: Inspection: No distended Palpation (GI): Soft to palpation and nontender Auscultation: normal bowel sounds Rectal Exam - Female: deferred Skin: General skin exam: no rashes or lesions noted Neuro: General: patient oriented x3 and moves all extremities Cranial nerves: Yes Equal, round and reactive pupils present Extrem: General: Yes no pedal edema Psych: Appearance: grossly normal Mental Status: mental status grossly normal Results Labs 06/22/24 05:25 06/22/24 05:25 Labs: Short CBC 06/22/24 Range/Units 05:25 WBC 7.8 (4.8-10.8) X10*3/uL Hgb 12.5 (12.0-16.0) g/dl Hct 36.8 L (37.0-47.0) % Plt Count 437 H (160-400) X10*3/uL BMP 06/21/24 06/22/24 11:43 05:25 Sodium 140 139 Potassium 3.8 3.4 Chloride 104 104 Carbon Dioxide 25 22 BUN 10 6 L Creatinine 0.66 0.62 Calcium 9.1 D 8.8 Liver Function 06/21/24 Range/Units 11:43 Total Bilirubin 0.5 (0.0-1.0) mg/dL Direct Bilirubin 0.3 (0.0-0.5) mg/dL AST 45 H (5-31) U/L ALT 25 (0-31) U/L Alkaline Phosphatase 83 (39-117) U/L Albumin 3.4 L (3.5-5.0) g/dL Urine 06/21/24 Range/Units 15:31 Urine Color Yellow Urine Appearance Cloudy Urine pH 5.5 (5.0-9.0) Ur Specific [place] 1.020 (1.005-1.025) Urine Protein Trace (Neg-Trace) mg/dL Urine Glucose (UA) Negative (Negative) mg/dL Assessment and Plan (1) Duodenal stricture: Status: Acute (2) Intractable nausea: Status: Acute (3) GERD (gastroesophageal reflux disease): Status: Acute Plan 73 YF with hypothyroidism, insulin-dependent diabetes mellitus, hypertension, mixed hyperlipidemia, mood disorder, fibromyalgia admitted to [facility] on 06/21/24 for evaluation of nausea and poor p.o. intake. Pt was admitted on 05/24/24 for acute cholecystitis, underwent cholecystectomy, and was discharged home on 05/27. Patient was readmitted 06/01/24 with intractable nausea, without vomiting, and an inability to keep oral intake. A CT scan reveals somewhat prominent thickening along the gastric pylorus and proximal duodenum, with distal gastritis/duodenitis suspected She was treated with IV Protonix, IV fluids, antiemetics with improvement of symptoms and discharged on 06/04/2024. Patient underwent EGD by Dr. Russo on 06/20 which revealed gastritis, Schatzki's ring with hiatal hernia and duodenal stricture. Duodenal stricture was dilated to 10 mm and patient was discharged home. Cousin reported pt has schizoaffective disorder and past hx of suicidal attempts if she gets frustrated. She admits to taking a baby aspirin daily and takes Voltaren 75 twice daily for myofascial pain and arthralgias Symptoms of persistent nausea and poor PO intake are likely due to duodenitis and duodenal stricture and are worse due to associated anxiety. Pt reports symptoms of nausea did not respond to ondansetron in the past. She noted improvement in symptoms with Compazine RECOMMENDATIONS: 1. Agree with IV fluids, IV PPI and anti-emetics 2. IV compazine for control of nausea 3. If pt is able to tolerate clear liquids today, advance to a full liquid diet in the am. Ok to discharge home if she tolerates a full liquid diet withotu nausea and vomiting Pt is requesting a prescription for Compazine for nausea at discharge 4. She is scheduled for a FU EGD on 07/03/[address] Russo If symptoms of nausea do not resolve and PO intake remains poor over the weekend, I will schedule her for an EGD on 06/24/24 Procedures Date of Service Date of Service: 06/22/24
[2024-06-22] MEDS: Lactated Ringers 1,000 ML 80 ML IVCONT ×2 (12:13→22:54)
--- NOTE | 2024-06-22 12:22 | P.PNIM_ITS ---
Subjective Subjective Date of Service: 06/22/24 Interval History: seen and examined this morning follow up for nausea Patient denies nausea but reports feeling ?crummy? she is unable to further quantify what this means. She denies fever, abdominal pain, vomiting, diarrhea Review of Systems Review of Systems: Yes all other systems are reviewed and are negative Constitutional Constitutional: Denies chills and Denies fever(s) Physical Exam 2 Vital Signs: Vital Signs: Last Vital Signs Temp 98.1 F 06/22/24 05:35 Pulse 78 06/22/24 05:35 Resp 20 06/22/24 05:35 BP 154/76 H 06/22/24 05:35 Pulse Ox 95 06/22/24 05:35 O2 Del Method Room Air 06/22/24 05:35 BMI result Body Mass Index 27.5 Const: General: cooperative, comfortable, no acute distress, alert and awake Nutritional Appearance: average body habitus Resp: Effort & Inspection: normal respiratory effort, able to speak in complete sentences, no respiratory distress and no use of accessory muscles Cardio: Rate: regular rate GI: Inspection: No distended Palpation (GI): Soft to palpation and nontender Neuro: General: moves all extremities Extrem: General: Yes no pedal edema Objective Data Active Medications Acetaminophen (Acetaminophen 325 Mg Tablet) 650 mg PO Q6H PRN PRN Reason: Pain, Mild 1-3,fever,headache Last Admin: 06/22/24 00:21 Dose: 650 mg Documented By: JAYLYN Aspirin (Aspirin Enteric Coated 81 Mg Tablet.Dr) 81 mg PO BEDTIME [facility] Calcium Carbonate (Calcium Carbonate 750 Mg Tab.Chew) 750 mg PO Q4H PRN PRN Reason: Heartburn Dextrose (Dextrose 50 % 25 Gm/50 Ml Syringe) 25 gm IVPUSH Q15M PRN; Protocol PRN Reason: per Hypoglycemia Standing Ord. Enoxaparin Sodium (Enoxaparin Sodium 40 Mg/0.4 Ml Syringe) 40 mg SUBCUT Q24H [facility] Last Admin: 06/22/24 00:14 Dose: 40 mg Documented By: JAYLYN Gabapentin (Gabapentin 400 Mg Capsule) 400 mg PO TID GLENN Glucose (Glucose Gel 15 Gm Gel..Gram.) 15 gm PO Q15M PRN; Protocol PRN Reason: per Hypoglycemia Standing Ord. Hydroxyzine HCl (Hydroxyzine Hcl 25 Mg Tablet) 25 mg PO BID PRN PRN Reason: Itching Magnesium Sulfate (Magnesium Sulfate/H2o) 2 gm in 50 mls @ 25 mls/hr IV ONCE ONE Stop: 06/22/24 12:48 Last Admin: 06/22/24 11:03 Dose: 25 mls/hr Documented By: GERALDINE Lactated Ringer's (Lr) 1,000 mls @ 80 mls/hr IVCONT .[id number] [facility] Last Admin: 06/22/24 12:13 Dose: 80 mls/hr Documented By: RADHA Insulin Human Lispro (Insulin Lispro 100 Unit/Ml 3 Ml Vial) 0 unit SUBCUT QIDACHS [facility]; Protocol Last Admin: 06/22/24 07:10 Dose: Not Given Documented By: RADHA Non-Admin Reason: No Insulin Coverage Levothyroxine Sodium (Levothyroxine Sodium 125 Mcg Tablet) 125 mcg PO DAILY@0630 [facility] Lorazepam (Lorazepam 0.5 Mg Tablet) 0.5 mg PO BEDTIME PRN PRN Reason: anxiety Magnesium Hydroxide (Milk Of Magnesia 30 Ml Oral.Susp) 30 ml PO DAILY PRN PRN Reason: Constipation Magnesium Oxide (Magnesium Oxide 400 Mg Tablet) 400 mg PO DAILY [facility] Melatonin (Melatonin 3 Mg Tablet) 6 mg PO BEDTIME PRN PRN Reason: Insomnia Ondansetron HCl (Ondansetron Hcl 4 Mg/2 Ml Vial) 4 mg IVPUSH Q8H PRN PRN Reason: Nausea and Vomiting Pantoprazole Sodium (Pantoprazole Sodium 40 Mg/10 Ml Vial) 40 mg IVPUSH BID@0630,1630 [facility] Last Admin: 06/22/24 05:30 Dose: 40 mg Documented By: NARENOPEMckenzie Sodium Chloride (0.9 % Sodium Chloride Flush 3 Ml Syringe) 3 ml IVFLUSH QSHIFT [facility] Last Admin: 06/22/24 07:10 Dose: Not Given Documented By: RADHA Non-Admin Reason: IV Running Labs 06/22/24 05:25 06/22/24 05:25 Labs: Laboratory Results - last 24 hr 06/21/24 06/22/24 06/22/24 15:31 00:17 05:25 MCV 89.8 MCH 30.5 MCHC 34.0 RDW 12.9 Plt Count 437 H MPV 8.3 L Immature Gran % (Auto) 0.5 H Neut % (Auto) 76.0 H Lymph % (Auto) 11.3 L [place] % (Auto) 10.1 Eos % (Auto) 1.5 Baso % (Auto) 0.6 Lymph # (Auto) 0.9 L [place] # (Auto) 0.8 Eos # (Auto) 0.1 Baso # (Auto) 0.1 Abs Immat Gran (auto) 0.04 H Absolute Neuts (auto) 5.9 Absolute Nucleated RBC 0.000 Nucleated RBC % (auto) 0.0 Anion Gap 16 Estim Creat Clear Calc 70.9 Estimated GFR > 60 POC Glucose 109 Random Glucose 116 H Calcium 8.8 Magnesium 1.4 L* Urine Color Yellow Urine Appearance Cloudy Urine pH 5.5 Ur Specific [place] 1.020 Urine Protein Trace Urine Glucose (UA) Negative Urine Ketones >=160 Urine Blood Negative Urine Nitrite Negative Ur Leukocyte Esterase Negative 06/22/24 07:09 MCV MCH MCHC RDW Plt Count MPV Immature Gran % (Auto) Neut % (Auto) Lymph % (Auto) [place] % (Auto) Eos % (Auto) Baso % (Auto) Lymph # (Auto) [place] # (Auto) Eos # (Auto) Baso # (Auto) Abs Immat Gran (auto) Absolute Neuts (auto) Absolute Nucleated RBC Nucleated RBC % (auto) Anion Gap Estim Creat Clear Calc Estimated GFR POC Glucose 116 H Random Glucose Calcium Magnesium Urine Color Urine Appearance Urine pH Ur Specific [place] Urine Protein Urine Glucose (UA) Urine Ketones Urine Blood Urine Nitrite Ur Leukocyte Esterase Assessment and Plan (1) Duodenal stricture: Status: Acute (2) Hypomagnesemia: Status: Acute Plan This is a 73-year-old female with pertinent history of hypothyroidism, insulin- dependent diabetes mellitus, hypertension, mixed hyperlipidemia, mood disorder, fibromyalgia who presents to the emergency department for evaluation of nausea and poor p.o. intake. Intractable nausea with poor p.o. intake: s/p EGD by Dr. Russo on 06/20 which revealed gastritis, Schatzki's ring with hiatal hernia and duodenal stricture s/p dilatation Imaging with duodenitis similar to previous IV Protonix and antiemetics Clear liquid diet and advance as tolerated GI consult pending Insulin-dependent diabetes mellitus: continue SSI POCs under 120, hold long acting insulin for now, resume as pt po intake improves Hypomagnesemia due to GI losses: Improving, continue baseline p.o. replacement Additional dose of IV Mixed hyperlipidemia: hold statin, until tolerating p.o. Hypothyroidism: continue Synthroid Mood disorder: Continue prn ativan Fibromyalgia Continue gabapentin DVT prophylaxis: Lovenox Full code Quality Stroke Does the patient have a stroke diagnosis?: No VTE Prior VTE?: No VTE Risk Level:: Medical - moderate - high VTE Device Contraindication: Treatment Not Indicated VTE Drug Contraindication: N/A - Med Ordered
[2024-06-22 13:12] LABS: Glucose, Whole Blood 123 mg/dL (60-115)
[2024-06-22 14:47] VITALS: BP 180/79; PULSE 78; RESP 78; TEMP 37.5; O2SAT 98
[2024-06-22] MEDS: Gabapentin 400 MG CAPSULE PO ×2 (14:56→21:54)
--- NOTE | 2024-06-22 16:27 | MHC.CM.PN ---
PT REPORTS SHE LIVES WITH HER AND IS INDEPENDENT WITH CARE SHE HAS A CANE AND IS ACTIVE WITH [facility] COPY OF HCP REQUESTED PCP: CARIDAD CALABRESE IMM DELIVERED DCP: HOME RESUME [facility] FAMILY TO TRANSPORT
[2024-06-22 18:33] LABS: Glucose, Whole Blood 95 mg/dL (60-115)
[2024-06-22 21:40] LABS: Glucose, Whole Blood 160 mg/dL (60-115)
[2024-06-22] MEDS: Insulin Lispro 100 UNIT/ML 3 ML VIAL SUBCUT (21:41)
[2024-06-22] MEDS: LORazepam 0.5 MG TABLET PO (21:58)
[2024-06-23 04:27] VITALS: BP 128/56; PULSE 68; RESP 16; TEMP 36.4; O2SAT 98
--- NOTE | 2024-06-23 04:40 | PC.NURSE ---
Resumed care of patient at 0300, pt has been resting comfortably in bed. Call hartmann within reach at this time. This rn is allowing pt to sleep
[2024-06-23] MEDS: Pantoprazole Sodium 40 MG/10 ML VIAL IVPUSH ×2 (06:12→15:08)
[2024-06-23] MEDS: Levothyroxine Sodium 125 MCG TABLET PO (07:33)
[2024-06-23 07:48] LABS: Glucose, Whole Blood 108 mg/dL (60-115)
[2024-06-23] MEDS: Gabapentin 400 MG CAPSULE PO ×3 (07:53→22:03)
[2024-06-23] MEDS: Magnesium Oxide 400 MG TABLET PO ×2 (07:53→17:59)
--- NOTE | 2024-06-23 11:36 | P.PNIM_ITS ---
Subjective Subjective Date of Service: 06/23/24 Interval History: Seen and examined this morning Follow-up for nausea/vomiting Feels much better this morning, tolerating clear liquids, asking for diet advancement worried symptoms will recur Review of Systems Review of Systems: Yes all other systems are reviewed and are negative Constitutional Constitutional: Denies chills and Denies fever(s) Cardiovascular Cardiovascular: Denies chest pain Physical Exam 2 Vital Signs: Vital Signs: Last Vital Signs Temp 97.5 F 06/23/24 04:27 Pulse 68 06/23/24 04:27 Resp 16 06/23/24 04:27 BP 128/56 L 06/23/24 04:27 Pulse Ox 98 06/23/24 04:27 O2 Del Method Room Air 06/23/24 04:27 BMI result Body Mass Index 27.5 Const: General: cooperative, comfortable, no acute distress, alert and awake Nutritional Appearance: average body habitus Resp: Effort & Inspection: normal respiratory effort, able to speak in complete sentences, no respiratory distress and no use of accessory muscles Cardio: Rate: regular rate GI: Inspection: No distended Palpation (GI): Soft to palpation and nontender Neuro: General: moves all extremities Extrem: General: Yes no pedal edema Objective Data Active Medications Acetaminophen (Acetaminophen 325 Mg Tablet) 650 mg PO Q6H PRN PRN Reason: Pain, Mild 1-3,fever,headache Last Admin: 06/22/24 00:21 Dose: 650 mg Documented By: JAYLYN Aspirin (Aspirin Enteric Coated 81 Mg Tablet.Dr) 81 mg PO BEDTIME [facility] Last Admin: 06/22/24 21:54 Dose: Not Given Documented By: GERALDINE Non-Admin Reason: Patient Refused Calcium Carbonate (Calcium Carbonate 750 Mg Tab.Chew) 750 mg PO Q4H PRN PRN Reason: Heartburn Dextrose (Dextrose 50 % 25 Gm/50 Ml Syringe) 25 gm IVPUSH Q15M PRN; Protocol PRN Reason: per Hypoglycemia Standing Ord. Enoxaparin Sodium (Enoxaparin Sodium 40 Mg/0.4 Ml Syringe) 40 mg SUBCUT Q24H [facility] Last Admin: 06/22/24 22:54 Dose: 40 mg Documented By: MAGGIE Gabapentin (Gabapentin 400 Mg Capsule) 400 mg PO TID [facility] Last Admin: 06/23/24 07:53 Dose: 400 mg Documented By: ZANDER Glucose (Glucose Gel 15 Gm Gel..Gram.) 15 gm PO Q15M PRN; Protocol PRN Reason: per Hypoglycemia Standing Ord. Hydroxyzine HCl (Hydroxyzine Hcl 25 Mg Tablet) 25 mg PO BID PRN PRN Reason: Itching Insulin Human Lispro (Insulin Lispro 100 Unit/Ml 3 Ml Vial) 0 unit SUBCUT QIDACHS [facility]; Protocol Last Admin: 06/23/24 07:45 Dose: Not Given Documented By: ZANDER Non-Admin Reason: No Insulin Coverage Comments: 104 poc Levothyroxine Sodium (Levothyroxine Sodium 125 Mcg Tablet) 125 mcg PO DAILY@0630 [facility] Last Admin: 06/23/24 07:33 Dose: 125 mcg Documented By: ZANDER Lorazepam (Lorazepam 0.5 Mg Tablet) 0.5 mg PO BEDTIME PRN PRN Reason: anxiety Last Admin: 06/22/24 21:58 Dose: 0.5 mg Documented By: GERALDINE Magnesium Hydroxide (Milk Of Magnesia 30 Ml Oral.Susp) 30 ml PO DAILY PRN PRN Reason: Constipation Magnesium Oxide (Magnesium Oxide 400 Mg Tablet) 400 mg PO DAILY [facility] Last Admin: 06/23/24 07:53 Dose: 400 mg Documented By: ZANDER Melatonin (Melatonin 3 Mg Tablet) 6 mg PO BEDTIME PRN PRN Reason: Insomnia Ondansetron HCl (Ondansetron Hcl 4 Mg/2 Ml Vial) 4 mg IVPUSH Q8H PRN PRN Reason: Nausea and Vomiting Pantoprazole Sodium (Pantoprazole Sodium 40 Mg/10 Ml Vial) 40 mg IVPUSH BID@0630,1630 [facility] Last Admin: 06/23/24 06:12 Dose: 40 mg Documented By: ZANDER Sodium Chloride (0.9 % Sodium Chloride Flush 3 Ml Syringe) 3 ml IVFLUSH QSHIFT [facility] Last Admin: 06/23/24 07:54 Dose: Not Given Documented By: ZANDER Non-Admin Reason: IV Running Labs 06/22/24 05:25 06/22/24 05:25 Labs: Laboratory Results - last 24 hr 06/22/24 06/22/24 06/22/24 13:08 18:27 21:37 POC Glucose 123 H 95 160 H 06/23/24 07:42 POC Glucose 108 Assessment and Plan (1) Duodenal stricture: Status: Acute Plan This is a 73-year-old female with pertinent history of hypothyroidism, insulin- dependent diabetes mellitus, hypertension, mixed hyperlipidemia, mood disorder, fibromyalgia who presents to the emergency department for evaluation of nausea and poor p.o. intake. Intractable nausea with poor p.o. intake: s/p EGD by Dr. Russo on 06/20 which revealed gastritis, Schatzki's ring with hiatal hernia and duodenal stricture s/p dilatation Imaging with duodenitis similar to previous IV Protonix and antiemetics Advanced to full liquid Seen by GI, no further inpatient workup. Has outpatient repeat endoscopy scheduled at the beginning of July. Hold aspirin until EGD Insulin-dependent diabetes mellitus: continue SSI hold long acting insulin for now, resume as pt po intake improves Hypomagnesemia due to GI losses: Increase oral replacement to twice daily Mixed hyperlipidemia: hold statin, until tolerating p.o. Hypothyroidism: continue Synthroid Mood disorder: Continue prn ativan Fibromyalgia Continue gabapentin DVT prophylaxis: Lovenox Full code Quality Stroke Does the patient have a stroke diagnosis?: No VTE Prior VTE?: No VTE Risk Level:: Medical - moderate - high VTE Device Contraindication: Treatment Not Indicated VTE Drug Contraindication: N/A - Med Ordered
[2024-06-23 11:50] LABS: Glucose, Whole Blood 162 mg/dL (60-115)
[2024-06-23] MEDS: Insulin Lispro 100 UNIT/ML 3 ML VIAL SUBCUT ×3 (11:59→22:03)
[2024-06-23 13:40] VITALS: BP 143/77; PULSE 99; RESP 16; TEMP 36.7; O2SAT 100
--- NOTE | 2024-06-23 14:13 | PM.EVENT ---
Event Note Date of Service: 06/23/24 Event Note: Pt reports she is feeling better today and tolerating a clear liquid diet. Diet to be advanced to a full liquid diet this afternoon. Pt and daughter are concerned that she may get recurrent nausea when she goes home Advised to continue a full liquid diet today and I can schedule and EGD tomorrow as an inpatient Pt would like to proceed with the EGD. Time Spent With Patient Time: Total time managing care of this patient today ____ minutes.
--- NOTE | 2024-06-23 17:03 | MHC.EDTECH ---
BRIAN Gaitan said to wait until dinner tray comes to check blood sugar .
[2024-06-23] MEDS: 0.9 % Sodium Chloride Flush 3 ML SYRINGE IVFLUSH ×2 (17:23→17:59)
[2024-06-23 17:43] LABS: Glucose, Whole Blood 163 mg/dL (60-115)
--- NOTE | 2024-06-23 18:39 | PC.NURSE ---
Pt has been ambulating throughout the unit with a walker, has been independently getting up to the bathroom instead of using the commode, she has had no complaints of pain or nausea this afternoon. Family has been at bedside throughout the day. Pt is to go for an upper endoscopy tomorrow, time is TBD. Pt has been tolerating her diet advancement well throoughout the day
[2024-06-23 19:51] VITALS: BP 139/65; PULSE 72; RESP 16; TEMP 36.8; O2SAT 95
--- NOTE | 2024-06-23 20:25 | PC.NURSE ---
Report taken from Kandy RN assumed care of pt at 1900. Pt A&Ox3 skin pwd respirations even unlabored. Sitting up at bedside. Offers no complaints other than It's kind of boring here said with a smile. Requesting ativan for sleep. Awaiting bed assignment for admission, NPO at midnight for endoscopy tomorrow, aware of plan of care.
[2024-06-23 20:31] LABS: Glucose, Whole Blood 177 mg/dL (60-115)
[2024-06-23] MEDS: Enoxaparin Sodium 40 MG/0.4 ML SYRINGE SUBCUT (22:02)
[2024-06-23] MEDS: LORazepam 0.5 MG TABLET PO (22:03)
[2024-06-24] VITALS (10 sets, daily range): BP systolic 88–165; BP diastolic 42–75; PULSE 61–89; RESP 14–18; TEMP 36.1–36.9; O2SAT 96–100
--- NOTE | 2024-06-24 00:38 | PC.NURSE ---
Pt resting in bed eyes closed, skin pwd respirations even unlabored. Awaiting bed assignment for admission, will continue to monitor for additional needs.
[2024-06-24] MEDS: Pantoprazole Sodium 40 MG/10 ML VIAL IVPUSH ×2 (05:19→16:43)
[2024-06-24] MEDS: Levothyroxine Sodium 125 MCG TABLET PO (05:19)
[2024-06-24 07:23] LABS: Glucose, Whole Blood 109 mg/dL (60-115)
[2024-06-24 07:52] LABS: Glucose, Whole Blood 112 mg/dL (60-115)
--- NOTE | 2024-06-24 08:11 | P.CONAN_ITS ---
HPI - Anesthesia Eval Consult details Narrative: egd PMFSH Active Problems Active Problems: All Active Problems Duodenal stricture (Acute) Hypomagnesemia (Acute) Intractable nausea (Acute) Gastritis (Acute) Duodenitis (Acute) S/P laparoscopic cholecystectomy (Acute) Cervical spinal stenosis (Acute) Osteoarthritis of shoulders, bilateral (Acute) Knee osteoarthritis (Acute) Overdose (Acute) Post-menopausal (Acute) Diabetic neuropathy (Acute) Hepatic steatosis (Acute) Renal cyst (Acute) Renal stone (Acute) Hypothyroidism (Acute) Obesity (BMI 30-39.9) (Acute) Elevated LFTs (Acute) Internal hemorrhoid (Acute) External hemorrhoid (Acute) Bilateral edema of lower extremity (Acute) Fibromyalgia (Acute) Compulsive scratching behavior (Acute) Physical exam (Acute) Uncontrolled diabetes mellitus (Acute) Change in hearing (Acute) Type II diabetes mellitus (Acute) Urinary incontinence (Acute) Schizoaffective disorder (Acute) Confusion (Acute) Vitamin D deficiency (Acute) HTN (hypertension) (Acute) HLD (hyperlipidemia) (Acute) Urinary urgency (Acute) OCD (obsessive compulsive disorder) (Acute) Depression (Acute) GERD (gastroesophageal reflux disease) (Acute) Arthralgia of shoulder region, left (Acute) Cervical spondylitis with radiculitis (Acute) Myofascial pain on left side (Acute) Past Medical History Medical History Bilateral cataracts Schizoaffective disorder Confusion Skin rash Vitamin D deficiency HTN (hypertension) HLD (hyperlipidemia) Cellulitis of leg, left Skin excoriation Urinary urgency Encounter to establish care Arthralgia of shoulder region, left Cervical spondylitis with radiculitis Myofascial pain on left side Depression OCD (obsessive compulsive disorder) DJD (degenerative joint disease) SI (sacroiliac) joint dysfunction Fibromyalgia GERD (gastroesophageal reflux disease) Neuropathy Diabetes Family History Family History Father No problems noted. Mother No problems noted. Family history of problems with anesthesia: No Surgical History Surgical History History of laparoscopic cholecystectomy (~05/24/24) H/O mastectomy Hx of appendectomy H/O exploratory laparotomy History of surgery History of Problems with Anesthesia: No Social History Social History Household Members: Spouse Household Members Other:: 1 Housing: House Do you presently have visiting nurse or other home services: Yes Alcohol intake: former Comment: SI 1:1 Patient Tobacco Use Status: Never used Tobacco Tobacco use type: Cigarette e-Cigarette/Vaping Use: Never Used Second Hand Smoke Exposure: No Advance Directives Date on File: 06/01/24 service: No Current occupational status: retired Cognitive needs: Yes (cane) Hearing needs: Yes (hearing aide) Vision needs: Yes (glasses) Meds Allergies Allergy/AdvReac Type Severity Reaction Status Date / Time codeine [Codeine] Allergy Unknown NAUSEA AND Verified 06/21/24 11:28 VOMITING, nausea pregabalin Allergy Unknown Confusion Verified 06/21/24 11:28 rosuvastatin [Crestor] Allergy Unknown joint pain Verified 06/21/24 11:28 NSAIDS (Non-Steroidal Allergy Swelling Verified 06/21/24 11:28 Anti-Inflamma oxycodone [From OxyContin] Allergy Itching Verified 06/21/24 11:28 [place] Insulin Allergy Unknown severe Uncoded 06/21/24 11:28 itching tapes, adhesives, tegaderm, Allergy Unknown rash Uncoded 06/21/24 11:28 st wellbutrin Allergy Unknown rash Uncoded 06/21/24 11:28 lexapro AdvReac Severe lethargic Uncoded 06/21/24 11:28 Active Medications: Current Medications Acetaminophen (Acetaminophen 325 Mg Tablet) 650 mg PO Q6H PRN PRN Reason: Pain, Mild 1-3,fever,headache Last Admin: 06/22/24 00:21 Dose: 650 mg Calcium Carbonate (Calcium Carbonate 750 Mg Tab.Chew) 750 mg PO Q4H PRN PRN Reason: Heartburn Dextrose (Dextrose 50 % 25 Gm/50 Ml Syringe) 25 gm IVPUSH Q15M PRN; Protocol PRN Reason: per Hypoglycemia Standing Ord. Enoxaparin Sodium (Enoxaparin Sodium 40 Mg/0.4 Ml Syringe) 40 mg SUBCUT Q24H [facility] Last Admin: 06/23/24 22:02 Dose: 40 mg Gabapentin (Gabapentin 400 Mg Capsule) 400 mg PO TID [facility] Last Admin: 06/23/24 22:03 Dose: 400 mg Glucose (Glucose Gel 15 Gm Gel..Gram.) 15 gm PO Q15M PRN; Protocol PRN Reason: per Hypoglycemia Standing Ord. Hydroxyzine HCl (Hydroxyzine Hcl 25 Mg Tablet) 25 mg PO BID PRN PRN Reason: Itching Insulin Human Lispro (Insulin Lispro 100 Unit/Ml 3 Ml Vial) 0 unit SUBCUT QIDACHS [facility]; Protocol Last Admin: 06/24/24 07:37 Dose: Not Given Levothyroxine Sodium (Levothyroxine Sodium 125 Mcg Tablet) 125 mcg PO DAILY@0630 [facility] Last Admin: 06/24/24 05:19 Dose: 125 mcg Lorazepam (Lorazepam 0.5 Mg Tablet) 0.5 mg PO BEDTIME PRN PRN Reason: anxiety Last Admin: 06/23/24 22:03 Dose: 0.5 mg Magnesium Hydroxide (Milk Of Magnesia 30 Ml Oral.Susp) 30 ml PO DAILY PRN PRN Reason: Constipation Magnesium Oxide (Magnesium Oxide 400 Mg Tablet) 400 mg PO BIDWM [facility] Last Admin: 06/24/24 07:45 Dose: Not Given Melatonin (Melatonin 3 Mg Tablet) 6 mg PO BEDTIME PRN PRN Reason: Insomnia Ondansetron HCl (Ondansetron Hcl 4 Mg/2 Ml Vial) 4 mg IVPUSH Q8H PRN PRN Reason: Nausea and Vomiting Pantoprazole Sodium (Pantoprazole Sodium 40 Mg/10 Ml Vial) 40 mg IVPUSH BID@0630,1630 [facility] Last Admin: 06/24/24 05:19 Dose: 40 mg Sodium Chloride (0.9 % Sodium Chloride Flush 3 Ml Syringe) 3 ml IVFLUSH QSHIFT [facility] Last Admin: 06/24/24 07:45 Dose: Not Given Home Medications ?Medication ?Instructions ?Recorded ?Confirmed ?Last Taken ?Type aspirin 81 mg tablet,delayed 81 mg PO BEDTIME 01/01/21 06/22/24 06/13/24 History release (Adult Aspirin Regimen) biotin 1 mg capsule 1 mg PO DAILY 05/17/21 06/22/24 2 Weeks Ago History ~06/08/24 omega 1-lxm-rlp-fish oil 1,000 mg 1 cap PO DAILY PRN supplemnt 05/17/21 06/22/24 06/13/24 History (120 mg-180 mg) capsule (Fish Oil) blood sugar diagnostic (OneTouch #10 ea 05/27/21 06/20/24 Unknown History Ultra Test strips) levocetirizine 5 mg tablet (Xyzal) 5 mg PO BID Allergy Symptoms 09/09/21 06/22/24 2 Weeks Ago History ~06/08/24 docusate sodium 100 mg capsule 100 mg PO DAILY PRN Constipation 12/28/23 06/22/24 Unknown History (Colace) diclofenac sodium 75 mg 75 mg PO BID PRN Pain 05/23/24 06/22/24 Unknown History tablet,delayed release hydroxyzine pamoate 25 mg capsule 25 mg PO BID PRN Itching 05/23/24 06/22/24 Unknown History insulin glargine 100 unit/mL (3 46 unit subcut DAILY 06/01/24 06/22/24 2 Weeks Ago History mL) subcutaneous pen (Basaglar ~06/08/24 KwikPen U-100 Insulin) ipratropium bromide 42 mcg (0.06 2 spray intranasal QID PRN Allergy 06/01/24 06/22/24 Unknown History %) nasal spray Symptoms furosemide 20 mg tablet 20 mg PO DAILY PRN leg swelling 06/22/24 06/22/24 Unknown History lorazepam 0.5 mg tablet 0.5 mg PO BEDTIME PRN anxiety 06/22/24 06/22/24 Unknown History pantoprazole 40 mg tablet,delayed 40 mg PO DAILY@0630 06/22/24 06/22/24 2 Weeks Ago History release (Protonix) ~06/08/24 vitamin B complex 1 cap PO DAILY 06/22/24 06/22/24 2 Weeks Ago History ~06/08/24 Exam Height,Weight and Vital Signs: Height 5 ft 2 in Weight 68.2 kg Last Vital Signs Temp 97.6 F 06/24/24 07:16 Pulse 61 06/24/24 07:16 Resp 14 06/24/24 07:16 BP 146/71 H 06/24/24 07:16 Pulse Ox 98 06/24/24 07:16 O2 Del Method Room Air 06/24/24 07:16 Pertinent Lab Results Pertinent Lab Results: Laboratory Tests 06/21/24 06/21/24 06/22/24 11:43 15:31 00:17 WBC 6.6 RBC 4.09 L Hgb 12.6 Hct 37.6 MCV 91.9 MCH 30.8 MCHC 33.5 RDW 12.9 Plt Count 451 H MPV 8.4 L Immature Gran % (Auto) 0.8 H Neut % (Auto) 76.4 H Lymph % (Auto) 11.6 L [place] % (Auto) 9.8 Eos % (Auto) 0.8 Baso % (Auto) 0.6 Lymph # (Auto) 0.8 L [place] # (Auto) 0.6 Eos # (Auto) 0.1 Baso # (Auto) 0.0 Abs Immat Gran (auto) 0.05 H Absolute Neuts (auto) 5.0 Absolute Nucleated RBC 0.000 Nucleated RBC % (auto) 0.0 Sodium 140 Potassium 3.8 Chloride 104 Carbon Dioxide 25 Anion Gap 15 BUN 10 Creatinine 0.66 Estim Creat Clear Calc 66.6 Estimated GFR > 60 POC Glucose 109 Random Glucose 148 H Calcium 9.1 D Magnesium 1.1 L* Total Bilirubin 0.5 Direct Bilirubin 0.3 AST 45 H ALT 25 Alkaline Phosphatase 83 Total Protein 6.6 Albumin 3.4 L Urine Color Yellow Urine Appearance Cloudy Urine pH 5.5 Ur Specific [place] 1.020 Urine Protein Trace Urine Glucose (UA) Negative Urine Ketones >=160 Urine Blood Negative Urine Nitrite Negative Ur Leukocyte Esterase Negative 06/22/24 06/22/24 06/22/24 05:25 07:09 13:08 WBC 7.8 RBC 4.10 L Hgb 12.5 Hct 36.8 L MCV 89.8 MCH 30.5 MCHC 34.0 RDW 12.9 Plt Count 437 H MPV 8.3 L Immature Gran % (Auto) 0.5 H Neut % (Auto) 76.0 H Lymph % (Auto) 11.3 L [place] % (Auto) 10.1 Eos % (Auto) 1.5 Baso % (Auto) 0.6 Lymph # (Auto) 0.9 L [place] # (Auto) 0.8 Eos # (Auto) 0.1 Baso # (Auto) 0.1 Abs Immat Gran (auto) 0.04 H Absolute Neuts (auto) 5.9 Absolute Nucleated RBC 0.000 Nucleated RBC % (auto) 0.0 Sodium 139 Potassium 3.4 Chloride 104 Carbon Dioxide 22 Anion Gap 16 BUN 6 L Creatinine 0.62 Estim Creat Clear Calc 70.9 Estimated GFR > 60 POC Glucose 116 H 123 H Random Glucose 116 H Calcium 8.8 Magnesium 1.4 L* Total Bilirubin Direct Bilirubin AST ALT Alkaline Phosphatase Total Protein Albumin Urine Color Urine Appearance Urine pH Ur Specific [place] Urine Protein Urine Glucose (UA) Urine Ketones Urine Blood Urine Nitrite Ur Leukocyte Esterase 06/22/24 06/22/24 06/23/24 18:27 21:37 07:42 WBC RBC Hgb Hct MCV MCH MCHC RDW Plt Count MPV Immature Gran % (Auto) Neut % (Auto) Lymph % (Auto) [place] % (Auto) Eos % (Auto) Baso % (Auto) Lymph # (Auto) [place] # (Auto) Eos # (Auto) Baso # (Auto) Abs Immat Gran (auto) Absolute Neuts (auto) Absolute Nucleated RBC Nucleated RBC % (auto) Sodium Potassium Chloride Carbon Dioxide Anion Gap BUN Creatinine Estim Creat Clear Calc Estimated GFR POC Glucose 95 160 H 108 Random Glucose Calcium Magnesium Total Bilirubin Direct Bilirubin AST ALT Alkaline Phosphatase Total Protein Albumin Urine Color Urine Appearance Urine pH Ur Specific [place] Urine Protein Urine Glucose (UA) Urine Ketones Urine Blood Urine Nitrite Ur Leukocyte Esterase 06/23/24 06/23/24 06/23/24 11:45 17:29 20:27 WBC RBC Hgb Hct MCV MCH MCHC RDW Plt Count MPV Immature Gran % (Auto) Neut % (Auto) Lymph % (Auto) [place] % (Auto) Eos % (Auto) Baso % (Auto) Lymph # (Auto) [place] # (Auto) Eos # (Auto) Baso # (Auto) Abs Immat Gran (auto) Absolute Neuts (auto) Absolute Nucleated RBC Nucleated RBC % (auto) Sodium Potassium Chloride Carbon Dioxide Anion Gap BUN Creatinine Estim Creat Clear Calc Estimated GFR POC Glucose 162 H 163 H 177 H Random Glucose Calcium Magnesium Total Bilirubin Direct Bilirubin AST ALT Alkaline Phosphatase Total Protein Albumin Urine Color Urine Appearance Urine pH Ur Specific [place] Urine Protein Urine Glucose (UA) Urine Ketones Urine Blood Urine Nitrite Ur Leukocyte Esterase 06/24/24 06/24/24 07:18 07:39 WBC RBC Hgb Hct MCV MCH MCHC RDW Plt Count MPV Immature Gran % (Auto) Neut % (Auto) Lymph % (Auto) [place] % (Auto) Eos % (Auto) Baso % (Auto) Lymph # (Auto) [place] # (Auto) Eos # (Auto) Baso # (Auto) Abs Immat Gran (auto) Absolute Neuts (auto) Absolute Nucleated RBC Nucleated RBC % (auto) Sodium Potassium Chloride Carbon Dioxide Anion Gap BUN Creatinine Estim Creat Clear Calc Estimated GFR POC Glucose 109 112 Random Glucose Calcium Magnesium Total Bilirubin Direct Bilirubin AST ALT Alkaline Phosphatase Total Protein Albumin Urine Color Urine Appearance Urine pH Ur Specific [place] Urine Protein Urine Glucose (UA) Urine Ketones Urine Blood Urine Nitrite Ur Leukocyte Esterase Airway Mallampati Class: II TM Dist: <=3cm Neck ROM: Poor Heart: rrr Lungs: cta Assessment and Plan Assessment Anesthesia Assessment: Anesthesia Plan Discussed and Chart Reviewed Final Anesthetic Review Family History of Problems with Anesthesia: No History of Problems with Anesthesia: No NPO: Yes ASA Class: III Final Preanesthetic Review: No Changes in Pt Med Stat, Meds/Allgs Chart Reviewed, Consent Obtained/Reviewed and Anes Risks/Benef Reviewed Patient Risk: Intermediate Procedure Risk: Low Anesthetic Plan Anesthetic Plan: MAC: Disposition: Standard PACU
--- NOTE | 2024-06-24 08:24 | MHC.SHP ---
Pre-Procedural Eval Section A - 24 Hr Update-Section A only Date of Service: 06/24/24 The patient is an INPATIENT: Yes Changes since office visit: Yes New Medical Problems, Yes Changes in Medication and Yes Patient answered all questions; No Cold of Flu in the past 2 weeks The patient has been examined within 24 hours of the surgical procedure. The History & Physical has been completed within 30 days and I have reviewed it.: Yes Section B - Complete if H&P > 30 days Chief Complaint: Duodenal stricture Allergies: Allergies Allergy/AdvReac Type Severity Reaction Status Date / Time codeine [Codeine] Allergy Unknown NAUSEA AND Verified 06/21/24 11:28 VOMITING, nausea pregabalin Allergy Unknown Confusion Verified 06/21/24 11:28 rosuvastatin [Crestor] Allergy Unknown joint pain Verified 06/21/24 11:28 NSAIDS (Non-Steroidal Allergy Swelling Verified 06/21/24 11:28 Anti-Inflamma oxycodone [From OxyContin] Allergy Itching Verified 06/21/24 11:28 [place] Insulin Allergy Unknown severe Uncoded 06/21/24 11:28 itching tapes, adhesives, tegaderm, Allergy Unknown rash Uncoded 06/21/24 11:28 st wellbutrin Allergy Unknown rash Uncoded 06/21/24 11:28 lexapro AdvReac Severe lethargic Uncoded 06/21/24 11:28 Plan Diagnosis/Plan: Unchanged I have reviewed the history and physical and performed a pertinent physical examination on my patient. No changes have occurred unless specified. Time Spent With Patient Time: Total time managing care of this patient today ____ minutes.
--- NOTE | 2024-06-24 09:03 | W.PM.OPN ---
Operative Note Operative Note Date of Service: 06/24/24 Narrative: FLEXIBLE TRANSORAL UPPER GASTROINTESTINAL ENDOSCOPY WITH BIOPSIES AND BALLOON DILATION OF DUODENAL STRICTURE Pre-op diagnosis: Duodenal stricture, persistent nausea. Post-op diagnosis: Gastritis, Duodenal stricture, nodule duodenal bulb Endoscopist:? Jonah Crespo MD Anesthesia:?MAC UPPER ENDOSCOPY Consent: Indications for the procedure and potential complications of bleeding, perforation, reaction to medications and missed diagnosis were discussed with the patient and informed consent was obtained. Instrument: Olympus GIF H 190 mid size upper endoscope Monitoring: Vital signs and clinical assessment, continuous EKG monitoring, Pulse oximetry, Carbon Dioxide monitoring and blood pressure monitoring were done throughout the procedure. Procedure: The patient was placed in the left lateral decubitis position and pre-procedure medications were administered and a bite block was placed. The endoscope was inserted into the mouth and advanced under direct vision to the third part of duodenum. A careful inspection was made as the upper endoscope was withdrawn including a retroflexed examination of the proximal stomach; Findings and interventions are described below. Findings: Larynx: Normal Esophagus: GE junction at 33 cms, small hiatal hernia 33 to 35 cms with a nonobstructing Schatzki's ring. Mildly tortuous esophagus without stricture. Stomach: Moderate diffuse gastric erythema with nodular appearing gastric mucosa in the gastric body and fundus - biopsies were obtained. Grade 2 flap valve on retroflexed examination of the cardia. Duodenum: A 12-15 mm nodule in the floor of the bulb - biopsied. A tight stricture at the apex of the bulb extending into the 2nd part of the duodenum. Unable to pass a mid size upper endoscope through the stricture. Stricture was dilated with a 10 and 11 mm CRE balloon x 60 seconds at each leve. Endoscope passed through the stricture with circumferential polypoidal/villous appearing mucosa - multiple biopsies were obtained. Normal duodenal mucosa distal to the stricture Intervention: Biopsies as noted above Impression and Post Procedure Diagnosis: Endoscopy Findings: ESOPHAGUS: STOMACH: DUODENUM: Plan: Keep appointment for repeat EGD with dilation as scheduled on 07/03/[address] Russo. Full liquid diet today. Above findings were reviewed with the patient and relevant handouts were given and the discharge area.
[2024-06-24] MEDS: Gabapentin 400 MG CAPSULE PO ×3 (10:26→20:27)
[2024-06-24 11:08] LABS: Glucose, Whole Blood 115 mg/dL (60-115)
--- NOTE | 2024-06-24 11:43 | HO.PM.IMPN ---
Subjective Subjective Date of Service: 06/24/24 Interval History: Seen and examined this morning Follow-up for nausea/vomiting Review of Systems Review of Systems: Yes all other systems are reviewed and are negative Constitutional Constitutional: Denies chills and Denies fever(s) Cardiovascular Cardiovascular: Denies chest pain Physical Exam Vital Signs: Vital Signs: Last Vital Signs Temp 97.7 F 06/24/24 10:23 Pulse 63 06/24/24 10:23 Resp 18 06/24/24 10:23 BP 165/70 H 06/24/24 10:23 Pulse Ox 98 06/24/24 10:23 O2 Del Method Room Air 06/24/24 10:23 BMI result Body Mass Index 27.5 Appearing in no acute distress lung sounds are clear to auscultation heart regular rate rhythm, clear S1, S2 positive bowel sounds, abdomen is soft, nontender neuro patient is alert x3, no focal deficits Objective Data Active Medications Acetaminophen (Acetaminophen 325 Mg Tablet) 650 mg PO Q6H PRN PRN Reason: Pain, Mild 1-3,fever,headache Last Admin: 06/22/24 00:21 Dose: 650 mg Documented By: JAYLYN Calcium Carbonate (Calcium Carbonate 750 Mg Tab.Chew) 750 mg PO Q4H PRN PRN Reason: Heartburn Dextrose (Dextrose 50 % 25 Gm/50 Ml Syringe) 25 gm IVPUSH Q15M PRN; Protocol PRN Reason: per Hypoglycemia Standing Ord. Enoxaparin Sodium (Enoxaparin Sodium 40 Mg/0.4 Ml Syringe) 40 mg SUBCUT Q24H [facility] Last Admin: 06/23/24 22:02 Dose: 40 mg Documented By: KIMBERLY Gabapentin (Gabapentin 400 Mg Capsule) 400 mg PO TID [facility] Last Admin: 06/24/24 10:26 Dose: 400 mg Documented By: NIKOLAS Glucose (Glucose Gel 15 Gm Gel..Gram.) 15 gm PO Q15M PRN; Protocol PRN Reason: per Hypoglycemia Standing Ord. Hydroxyzine HCl (Hydroxyzine Hcl 25 Mg Tablet) 25 mg PO BID PRN PRN Reason: Itching Insulin Human Lispro (Insulin Lispro 100 Unit/Ml 3 Ml Vial) 0 unit SUBCUT QIDACHS [facility]; Protocol Last Admin: 06/24/24 11:40 Dose: Not Given Documented By: NIKOLAS Non-Admin Reason: No Insulin Coverage Levothyroxine Sodium (Levothyroxine Sodium 125 Mcg Tablet) 125 mcg PO DAILY@0630 [facility] Last Admin: 06/24/24 05:19 Dose: 125 mcg Documented By: FATMATA Lorazepam (Lorazepam 0.5 Mg Tablet) 0.5 mg PO BEDTIME PRN PRN Reason: anxiety Last Admin: 06/23/24 22:03 Dose: 0.5 mg Documented By: KIMBERLY Magnesium Hydroxide (Milk Of Magnesia 30 Ml Oral.Susp) 30 ml PO DAILY PRN PRN Reason: Constipation Magnesium Oxide (Magnesium Oxide 400 Mg Tablet) 400 mg PO BIDWM [facility] Last Admin: 06/24/24 07:45 Dose: Not Given Documented By: NIKOLAS Non-Admin Reason: Off Unit: Surgery Melatonin (Melatonin 3 Mg Tablet) 6 mg PO BEDTIME PRN PRN Reason: Insomnia Ondansetron HCl (Ondansetron Hcl 4 Mg/2 Ml Vial) 4 mg IVPUSH Q8H PRN PRN Reason: Nausea and Vomiting Pantoprazole Sodium (Pantoprazole Sodium 40 Mg/10 Ml Vial) 40 mg IVPUSH BID@0630,1630 [facility] Last Admin: 06/24/24 05:19 Dose: 40 mg Documented By: FATMATA Sodium Chloride (0.9 % Sodium Chloride Flush 3 Ml Syringe) 3 ml IVFLUSH QSHIFT [facility] Last Admin: 06/24/24 07:45 Dose: Not Given Documented By: NIKOLAS Non-Admin Reason: Off Unit: Surgery Labs 06/22/24 05:25 06/22/24 05:25 Labs: Laboratory Results - last 24 hr 06/23/24 06/23/24 06/23/24 11:45 17:29 20:27 POC Glucose 162 H 163 H 177 H 06/24/24 06/24/24 06/24/24 07:18 07:39 11:04 POC Glucose 109 112 115 Assessment and Plan (1) Duodenal stricture: Status: Acute Plan 73-year-old female with pertinent history of hypothyroidism, insulin-dependent diabetes mellitus, hypertension, mixed hyperlipidemia, mood disorder, fibromyalgia who presents to the emergency department for evaluation of nausea and poor p.o. intake. Intractable nausea with poor p.o. intake: s/p EGD by Dr. Russo on 06/20 which revealed gastritis, Schatzki's ring with hiatal hernia and duodenal stricture s/p dilatation Imaging with duodenitis similar to previous IV Protonix and antiemetics Advanced to full liquid Seen by GI, repeat endoscopy pretty much the same as previous, f/u with scheduled EGD 07/05 Insulin-dependent diabetes mellitus 2 continue SSI hold long acting insulin for now, resume as pt po intake improves Hypomagnesemia due to GI losses: oral replacement twice daily Mixed hyperlipidemia hold statin, until tolerating p.o. Hypothyroidism continue Synthroid Mood disorder Continue prn ativan Fibromyalgia Continue gabapentin DVT prophylaxis: Lovenox Full code Quality Stroke Does the patient have a stroke diagnosis?: No VTE Prior VTE?: No VTE Risk Level:: Medical - moderate - high VTE Device Contraindication: Treatment Not Indicated VTE Drug Contraindication: N/A - Med Ordered
[2024-06-24] MEDS: 0.9 % Sodium Chloride Flush 3 ML SYRINGE IVFLUSH ×2 (15:46→20:27)
[2024-06-24 16:14] LABS: Glucose, Whole Blood 197 mg/dL (60-115)
--- NOTE | 2024-06-24 16:20 | MHC.CM.PN ---
PT NOT MEDICALLY CLEARED, DCP HOME NO SERVICES VIA PRIVATE TRANSPORT
[2024-06-24] MEDS: Magnesium Oxide 400 MG TABLET PO (16:43)
[2024-06-24] MEDS: Insulin Lispro 100 UNIT/ML 3 ML VIAL SUBCUT (16:43)
[2024-06-24] MEDS: Acetaminophen 325 MG TABLET 650 MG PO (19:41)
[2024-06-24 20:18] LABS: Glucose, Whole Blood 147 mg/dL (60-115)
[2024-06-24] MEDS: Enoxaparin Sodium 40 MG/0.4 ML SYRINGE SUBCUT (22:00)
[2024-06-24] MEDS: LORazepam 0.5 MG TABLET PO (22:00)
[2024-06-25] VITALS: BP 140/60; PULSE 75; RESP 18; TEMP 36.9; O2SAT 96
[2024-06-25 03:44] VITALS: BP 135/72; PULSE 72; RESP 18; TEMP 36.4; O2SAT 98
[2024-06-25] MEDS: Levothyroxine Sodium 125 MCG TABLET PO (05:35)
[2024-06-25 07:10] VITALS: BP 140/73; PULSE 71; RESP 14; TEMP 36.3; O2SAT 98
[2024-06-25 07:21] LABS: Glucose, Whole Blood 131 mg/dL (60-115)
--- NOTE | 2024-06-25 07:22 | PM.DS ---
DS: Providers Provider Date of Service: 06/25/24 Date of admission: 06/21/24 23:07 Date of discharge: 06/25/24 Primary care physician: Jaye Ortega MD Consults: 06/21/24 23:07 Consult to Gastroenterology Routine Consulting Provider: Jonah Crespo Reason for consultation: intractable nausea, reduced po intake DS: Diagnosis Discharge Diagnosis (1) Duodenal stricture: Status: Acute DS: Summary Hospital Course Hospital Course: History and physical as per admitting provider. This is a 73-year-old female with pertinent history of hypothyroidism, insulin-dependent diabetes mellitus, hypertension, mixed hyperlipidemia, mood disorder, fibromyalgia who presents to the emergency department for evaluation of nausea and poor p.o. intake. Patient was recently admitted with gastritis and duodenitis on 06/01/24. She was treated with IV Protonix, IV fluids, antiemetics with improvement of symptoms and discharged on 06/04/2024. Patient underwent EGD by Dr. Russo on 06/20 which revealed gastritis, Schatzki's ring with hiatal hernia and duodenal stricture. Duodenal stricture was dilated and patient was discharged home. Patient states on the day of presentation she has been having intractable nausea and unable to tolerate p.o. intake. Denies abdominal discomfort, vomiting or diarrhea. No fever, chills, chest pain, palpitations, changes in urinary habits. Gastroenterology was consulted who requested admission. Imaging with duodenitis. 74-year-old woman treated for intractable nausea and vomiting with poor p.o. intake. She had EGD initially on 06/2024 which revealed gastritis, Schatzki's ring with hiatal hernia duodenal stricture and status post dilatation. She was started on IV Protonix and antiemetics. She had a repeat endoscopy on 06/24/2024 which showed pretty much the same. He was scheduled for a follow up endoscopy on 07/05/2024 outpatient. At this point patient's diet was advanced to solids and she has done well without. She did have an episode of hypomagnesemia secondary to GI losses and resolved with replacement. Diabetes mellitus type 2. Continue home medications Hyperlipidemia. Continue statin Mental health. Continue lorazepam Hypothyroidism. Continue levothyroxine Time Attestation Discharge Coordination Time (in mins): 42 Quality: Safe Use of Opioids Does Pt have an Active Cancer Diagnosis on the Problem List?: No Quality: Stroke Does the patient have a stroke diagnosis?: No Physical Exam Vital Signs: Vital Signs: Last Vital Signs Temp 97.3 F 06/25/24 07:10 Pulse 71 06/25/24 07:10 Resp 14 06/25/24 07:10 BP 140/73 H 06/25/24 07:10 Pulse Ox 98 06/25/24 07:10 O2 Del Method Room Air 06/25/24 07:10 BMI result Body Mass Index 27.5 Appearing in no acute distress head is normocephalic atraumatic eyes pupils are PERRLA sclera is anicteric mouth throat mucous membranes are intact and moist neck is supple no lymphadenopathy, no JVD noted lung sounds are clear to auscultation heart regular rate rhythm, clear S1, S2 positive bowel sounds, abdomen is soft, nontender neuro patient is alert x3, no focal deficits DS: Data Data Completed and Pending Completed studies during hospitalization [Text1]: Procedures Resection of Gallbladder, Percutaneous Endoscopic Approach (05/23/24) Pending studies at discharge: Pending at discharge 06/24/24 08:55 Surgical [PTH] Routine Labs on day of discharge: Laboratory Results - last 24 hr 06/24/24 06/24/24 06/24/24 07:18 07:39 11:04 POC Glucose 109 112 115 06/24/24 06/24/24 06/25/24 16:11 20:09 07:15 POC Glucose 197 H 147 H 131 H Discharge Plan Discharge Anticipated Discharge Date/Time: 06/25/24 07:19 Patient Disposition: Home, Self-Care Discharge Diagnosis: Intractable nausea and vomiting Hypomagnesemia Gastritis duodenal stricture Referrals: Jaye Ortega MD [Primary Care Provider] - 1 Week Discharge Medications: New ondansetron 4 mg tablet,disintegrating 4 mg PO Q8H PRN (Reason: nausea and vomiting) Qty: 18 0RF Continued (DME) OneTouch Ultra Test Strip See Rx Instructions .Route Qty: 100 2RF Rx Instructions: check BS 2-3x/day gabapentin 400 mg capsule 400 mg PO TID 30 Days Qty: 90 1RF simvastatin 40 mg tablet 40 mg PO BEDTIME Qty: 90 0RF levothyroxine 125 mcg tablet 125 mcg PO DAILY@0630 Qty: 90 1RF prochlorperazine maleate [Compazine] 10 mg tablet 10 mg PO Q8H PRN (Reason: nausea and vomiting) 30 Days Qty: 20 1RF magnesium oxide 400 mg (241.3 mg magnesium) tablet 400 mg PO DAILY Qty: 30 0RF diclofenac sodium 75 mg tablet,delayed release (DR/EC) 75 mg PO BID PRN (Reason: Pain) hydroxyzine pamoate 25 mg capsule 25 mg PO BID PRN (Reason: Itching) acetaminophen 325 mg Tablet 650 mg PO Q6H PRN (Reason: Pain, Mild 1-3,Fever,Headache) Qty: 30 0RF insulin glargine [Basaglar KwikPen U-100 Insulin] 100 unit/mL (3 mL) insulin pen 46 unit subcut DAILY ipratropium bromide 42 mcg (0.06 %) spray,non-aerosol 2 spray intranasal QID PRN (Reason: Allergy Symptoms) lorazepam 0.5 mg tablet 0.5 mg PO BEDTIME PRN (Reason: anxiety) pantoprazole [Protonix] 40 mg tablet,delayed release (DR/EC) 40 mg PO DAILY@0630 furosemide 20 mg Tablet 20 mg PO DAILY PRN (Reason: leg swelling) vitamin B complex Capsule 1 cap PO DAILY aspirin [Adult Aspirin Regimen] 81 mg tablet,delayed release (DR/EC) 81 mg PO BEDTIME biotin 1 mg capsule 1 mg PO DAILY omega [id number] oil [Fish Oil] 1,000 mg (120 mg-180 mg) capsule 1 cap PO DAILY PRN (Reason: supplemnt) levocetirizine [Xyzal] 5 mg tablet 5 mg PO BID (DME) OneTouch Ultra Test Strip See Rx Instructions Not Applicable TID Qty: 10 Rx Instructions: As directed docusate sodium [Colace] 100 mg capsule 100 mg PO DAILY PRN (Reason: Constipation) pyridoxine (vitamin B6) 100 mg tablet 100 mg PO DAILY 90 Days Qty: 90 3RF Discharge Orders: Discharge Order (Routine); Ordered 06/25/24 Ordered By: Dulce Duke Diet: Advance to usual diet Activity on Discharge: As tolerated Stand Alone Forms: Patient Portal Discharge page Print Language: Lao Care Plan Goals: Follow-up with gastroenterology for next scheduled endoscopy Health Concerns: Intractable nausea and vomiting Hypomagnesemia Gastritis duodenal stricture Plan of Treatment: Follow-up with primary care provider as needed Take all medications as prescribed Assessment: See discharge summary
[2024-06-25] MEDS: Gabapentin 400 MG CAPSULE PO (07:58)
[2024-06-25] MEDS: 0.9 % Sodium Chloride Flush 3 ML SYRINGE IVFLUSH (07:58)
[2024-06-25] MEDS: Magnesium Oxide 400 MG TABLET PO (07:58)
--- NOTE | 2024-06-25 08:26 | P.CDIM_ITS ---
PROVIDER RESPONSE TEXT: To clarify, the appropriate diagnosis supported by the clinical indicators: Acute on chronic QUERY TEXT: PHYSICIAN'S DOCUMENTATION REQUEST Date of Query: 06/25/2024 08:20 AM EDT Patient Name: Lizzette Steiner Admit Date: 06/22/2024 Dear Dulce Duke SKIVER BOX TOE, A review of the medical record indicates additional documentation may be needed. Please review below and update the documentation accordingly. Clinical Indicators: EGD dated 06/24/24 - Post-Op diagnosis: Gastritis, Duodenal stricture, nodule duodenal bulb. IV Protonix & antiemetics Clarify which of the following accurately represents the acuity of the Gastritis: Possible options might include: Acute Acute on chronic Chronic stable condition Other (explain) Clinically unable to determine (explain) Thank you, Kassidy Sanz, CCS, CDIS Use of terms such as suspected, likely, concern for, or probable (associated with a specific diagnosi s that is being evaluated, monitored, or treated as if it exists) are acceptable and can be coded in the inpatient se tting, when documented at the time of discharge. Please use your independent medical judgment in providing your response. THIS QUERY IS PART OF THE PERMANENT MEDICAL RECORD
--- NOTE | 2024-06-25 08:46 | MHC.CM.PN ---
DP: PT HAS BEEN MEDICALLY CLEARED FOR DC HOME WITH RESUMPTION OF [facility] SERVICES. [facility] NOTIFIED OF TODAY'S DC. FINAL IMM DELIVERED. PT'S FAMILY WILL TRANSPORT.
[2024-06-25 10:06] VITALS: BP 146/68; PULSE 82; RESP 18; TEMP 36.3; O2SAT 97
--- NOTE | 2024-06-25 14:33 | HO.POSTANES ---
Post Anesthesia Evaluation Post Anesthesia Evaluation Date of Service: 06/25/24 Vital Signs: Vital Signs Temp Pulse Resp BP Pulse Ox O2 Del Method 06/25/24 10:06 97.3 F 82 18 146/68 H 97 Room Air 06/25/24 07:10 97.3 F 71 14 140/73 H 98 Room Air 06/25/24 03:44 97.6 F 72 18 135/72 98 Room Air Anesthesia: Monitored Mental Status: Awake Pain Control: Satisfactory Nausea/Vomiting: None Hydration: Adequate Anesthesia-Related Issues: No Anes. Related Issues
== END 2024-06-25 10:56 | disposition home or self-care (01) | DRG 392 ==
LOC: HO.ED 17:08 → HO.S3 23:47 → HO.EDOVER 06-22 07:09 → HO.S3 06-22 08:38 → HO.EDOVER 06-22 23:32 → HO.S3 06-24 03:56
PROVIDERS: Internal Medicine Gastroenterology; Physician Assistant; Physician Assistant Medical; Admitting Provider Student in an Organized Health Care Education/Training Program; Emergency Provider Emergency Medicine; PCP Hospitalist; Visit Provider Nurse Practitioner Acute Care
PROC: 0DJ08ZZ Inspection of Upper Intestinal Tract, Via Natural or Artificial Opening Endoscopic (ICD-10-PCS; CPT 43235; principal; 2024-06-24 08:30)
DX: K29.00 Acute gastritis without bleeding (principal); K31.5 Obstruction of duodenum; E83.42 Hypomagnesemia; M79.7 Fibromyalgia; E03.9 Hypothyroidism, unspecified; E78.2 Mixed hyperlipidemia; K29.50 Unspecified chronic gastritis without bleeding; K44.9 Diaphragmatic hernia without obstruction or gangrene; F39 Unspecified mood [affective] disorder; K22.2 Esophageal obstruction; Z79.4 Long term (current) use of insulin; Z79.890 Hormone replacement therapy; Z79.899 Other long term (current) drug therapy
CPT/HCPCS: 36415; 70450; 74177; 80048; 80076; 81003; 82947; 83735; 85025; 88305; 88313; 88341; 88342; 93005; 99221; 99285; C1726; J0737; J1650; J2003; J2405; J2470; J2704; J3010; J3475; J7120; Q9967

== ENCOUNTER → 2024-06-21 12:15 | Outpatient (BNV) | payer MEDICARE, OTHER, SELFPAY | PROVIDERS: Emergency Provider Emergency Medicine; PCP Hospitalist; Visit Provider Internal Medicine Cardiovascular Disease | DX: E83.42 Hypomagnesemia (principal) | CPT/HCPCS: 93010 ==

== ENCOUNTER → 2024-06-21 16:47 | Outpatient (BNV) | payer MEDICARE, OTHER, SELFPAY | PROVIDERS: Emergency Provider Emergency Medicine; PCP Hospitalist; Visit Provider Radiology Vascular & Interventional Radiology | DX: R11.0 Nausea (principal); I67.82 Cerebral ischemia | CPT/HCPCS: 70450; 74177 ==

== ENCOUNTER → 2024-06-21 23:07 | Outpatient (BNV) | payer MEDICARE, OTHER, SELFPAY | PROVIDERS: Admitting Provider Student in an Organized Health Care Education/Training Program; Emergency Provider Emergency Medicine; PCP Hospitalist; Visit Provider Student in an Organized Health Care Education/Training Program | DX: K31.5 Obstruction of duodenum (principal) | CPT/HCPCS: 99232; 99239 ==

== ENCOUNTER → 2024-06-21 23:07 | Outpatient (BNV) | payer MEDICARE, OTHER, SELFPAY | PROVIDERS: Admitting Provider Student in an Organized Health Care Education/Training Program; Emergency Provider Emergency Medicine; PCP Hospitalist; Visit Provider Internal Medicine Gastroenterology | DX: K31.5 Obstruction of duodenum (principal); R11.0 Nausea; K21.9 Gastro-esophageal reflux disease without esophagitis | CPT/HCPCS: 99222; 99499 ==

== ENCOUNTER 2024-07-03 09:34 | Day surgery (SDC) | payer MEDICARE, OTHER, SELFPAY ==
[2024-07-01 14:07] VITALS: BMI 27.7
--- NOTE | 2024-07-02 10:29 | HO.ANESPROP2 ---
Documented by User: Salome Franco NP 07/02/24 10:33 HPI - Anesthesia Eval Consult details Narrative: 74yo F for Upper Endoscopy with Dilitation s/p EGD 06/24/24 with [facility] during [facility] [place]21-06/25/24: Hospital Course: History and physical as per admitting provider. This is a 73-year-old female with pertinent history of hypothyroidism, insulin-dependent diabetes mellitus, hypertension, mixed hyperlipidemia, mood disorder, fibromyalgia who presents to the emergency department for evaluation of nausea and poor p.o. intake. Patient was recently admitted with gastritis and duodenitis on 06/01/24. She was treated with IV Protonix, IV fluids, antiemetics with improvement of symptoms and discharged on 06/04/2024. Patient underwent EGD by Dr. Russo on 06/20 which revealed gastritis, Schatzki's ring with hiatal hernia and duodenal stricture. Duodenal stricture was dilated and patient was discharged home. Patient states on the day of presentation she has been having intractable nausea and unable to tolerate p.o. intake. Denies abdominal discomfort, vomiting or diarrhea. No fever, chills, chest pain, palpitations, changes in urinary habits. Gastroenterology was consulted who requested admission. Imaging with duodenitis. 74-year-old woman treated for intractable nausea and vomiting with poor p.o. intake. She had EGD initially on 06/2024 which revealed gastritis, Schatzki's ring with hiatal hernia duodenal stricture and status post dilatation. She was started on IV Protonix and antiemetics. She had a repeat endoscopy on 06/24/2024 which showed pretty much the same. He was scheduled for a follow up endoscopy on 07/05/2024 outpatient. At this point patient's diet was advanced to solids and she has done well without. She did have an episode of hypomagnesemia secondary to GI losses and resolved with replacement. [facility] Active Problems Active Problems: All Active Problems Gastritis (Acute) S/P laparoscopic cholecystectomy (Acute) Cervical spinal stenosis (Acute) Osteoarthritis of shoulders, bilateral (Acute) Knee osteoarthritis (Acute) Overdose (Acute) Post-menopausal (Acute) Diabetic neuropathy (Acute) Hepatic steatosis (Acute) Renal cyst (Acute) Renal stone (Acute) Hypothyroidism (Acute) Obesity (BMI 30-39.9) (Acute) Elevated LFTs (Acute) Internal hemorrhoid (Acute) External hemorrhoid (Acute) Bilateral edema of lower extremity (Acute) Fibromyalgia (Acute) Compulsive scratching behavior (Acute) Physical exam (Acute) Uncontrolled diabetes mellitus (Acute) Change in hearing (Acute) Type II diabetes mellitus (Acute) Urinary incontinence (Acute) Schizoaffective disorder (Acute) Confusion (Acute) Vitamin D deficiency (Acute) HTN (hypertension) (Acute) HLD (hyperlipidemia) (Acute) Urinary urgency (Acute) OCD (obsessive compulsive disorder) (Acute) Depression (Acute) Arthralgia of shoulder region, left (Acute) Cervical spondylitis with radiculitis (Acute) Myofascial pain on left side (Acute) Past Medical History Medical History (Updated 06/28/24 @ 00:01 by Rosalva Hendricks) Duodenal stricture Duodenitis Bilateral cataracts Schizoaffective disorder Confusion Skin rash Vitamin D deficiency HTN (hypertension) HLD (hyperlipidemia) Cellulitis of leg, left Skin excoriation Urinary urgency Encounter to establish care Arthralgia of shoulder region, left Cervical spondylitis with radiculitis Myofascial pain on left side Depression OCD (obsessive compulsive disorder) DJD (degenerative joint disease) SI (sacroiliac) joint dysfunction Fibromyalgia GERD (gastroesophageal reflux disease) Neuropathy Diabetes Family History Family History Father No problems noted. Mother No problems noted. Family history of problems with anesthesia: No Surgical History Surgical History (Updated 07/01/24 @ 14:09 by Jennifer Rogers RN) History of esophagogastroduodenoscopy (EGD) History of laparoscopic cholecystectomy (~05/24/24) H/O mastectomy Hx of appendectomy H/O exploratory laparotomy History of surgery History of Problems with Anesthesia: No Social History Social History Household Members: Spouse Household Members Other:: 1 Housing: House Do you presently have visiting nurse or other home services: Yes Alcohol intake: former Comment: SI 1:1 Patient Tobacco Use Status: Never used Tobacco Tobacco use type: Cigarette e-Cigarette/Vaping Use: Never Used Second Hand Smoke Exposure: No Advance Directives: No Advance Directives Information Provided: Yes Advance Directives Date on File: 06/01/24 service: No Current occupational status: retired Cognitive needs: Yes (cane) Hearing needs: Yes (hearing aide) Vision needs: Yes (glasses) Meds Allergies Allergy/AdvReac Type Severity Reaction Status Date / Time insulin detemir Allergy Severe Itching Verified 07/01/24 14:04 [From Levemir U-100 Insulin] adhesive tape Allergy Intermediate Rash from Verified 07/01/24 14:04 medical tape, tegaderm, etc. bupropion [From Wellbutrin] Allergy Intermediate Rash Verified 07/01/24 14:04 codeine [Codeine] Allergy Intermediate Nausea and Verified 07/01/24 14:04 Vomiting escitalopram Allergy Intermediate lethargy Verified 07/01/24 14:04 NSAIDS (Non-Steroidal Allergy Intermediate Swelling Verified 07/01/24 14:04 Anti-Inflamma oxycodone [From OxyContin] Allergy Intermediate Itching Verified 07/01/24 14:04 pregabalin Allergy Intermediate Confusion Verified 07/01/24 14:04 rosuvastatin [Crestor] AdvReac Intermediate joint pain Verified 07/01/24 14:04 Home Medications ?Medication ?Instructions ?Recorded ?Confirmed ?Last Taken ?Type aspirin 81 mg tablet,delayed 81 mg PO BEDTIME 01/01/21 07/01/24 06/13/24 History release (Adult Aspirin Regimen) biotin 1 mg capsule 1 mg PO DAILY 05/17/21 07/01/24 2 Weeks Ago History ~06/08/24 omega 7-hdg-ics-fish oil 1,000 mg 1 cap PO DAILY PRN supplemnt 05/17/21 07/01/24 06/13/24 History (120 mg-180 mg) capsule (Fish Oil) blood sugar diagnostic (OneTouch #10 ea 05/27/21 06/20/24 Unknown History Ultra Test strips) levocetirizine 5 mg tablet (Xyzal) 5 mg PO BID Allergy Symptoms 09/09/21 07/01/24 2 Weeks Ago History ~06/08/24 docusate sodium 100 mg capsule 100 mg PO DAILY PRN Constipation 12/28/23 07/01/24 Unknown History (Colace) diclofenac sodium 75 mg 75 mg PO BID PRN Pain 05/23/24 07/01/24 Unknown History tablet,delayed release hydroxyzine pamoate 25 mg capsule 25 mg PO BID PRN Itching 05/23/24 07/01/24 Unknown History insulin glargine 100 unit/mL (3 46 unit subcut DAILY 06/01/24 07/01/24 2 Weeks Ago History mL) subcutaneous pen (Basaglar ~06/08/24 KwikPen U-100 Insulin) ipratropium bromide 42 mcg (0.06 2 spray intranasal QID PRN Allergy 06/01/24 07/01/24 Unknown History %) nasal spray Symptoms furosemide 20 mg tablet 20 mg PO DAILY PRN leg swelling 06/22/24 07/01/24 Unknown History lorazepam 0.5 mg tablet 0.5 mg PO BEDTIME PRN anxiety 06/22/24 07/01/24 Unknown History vitamin B complex 1 cap PO DAILY 06/22/24 07/01/24 2 Weeks Ago History ~06/08/24 Exam Height,Weight and Vital Signs: Height 5 ft 2 in Weight 68.6 kg Pertinent Lab Results Pertinent Lab Results: Laboratory Tests 06/22/24 05:25 WBC 7.8 Hgb 12.5 Hct 36.8 L Plt Count 437 H Sodium 139 Potassium 3.4 Chloride 104 Carbon Dioxide 22 BUN 6 L Creatinine 0.62 Narrative Narrative: EKG 06/2024 Vent. Rate : 70 BPM Atrial Rate : 70 BPM P-R Int : 128 ms QRS Dur : 72 ms QT Int : 426 ms P-R-T Axes : 52 -14 16 degrees QTcB Int : 460 ms Normal sinus rhythm Minimal voltage criteria for LVH, may be normal variant ( R in aVL ) Borderline ECG When compared with ECG of 01-Jun-2024 14:20, No significant change was found Assessment and Plan Assessment Anesthesia Assessment: Chart Reviewed Final Anesthetic Review Family History of Problems with Anesthesia: No History of Problems with Anesthesia: No Documented by User: Katy Green MD 07/03/24 10:36 [facility] Past Medical History Medical History (Updated 06/28/24 @ 00:01 by Rosalva Hendricks) Duodenal stricture Duodenitis Bilateral cataracts Schizoaffective disorder Confusion Skin rash Vitamin D deficiency HTN (hypertension) HLD (hyperlipidemia) Cellulitis of leg, left Skin excoriation Urinary urgency Encounter to establish care Arthralgia of shoulder region, left Cervical spondylitis with radiculitis Myofascial pain on left side Depression OCD (obsessive compulsive disorder) DJD (degenerative joint disease) SI (sacroiliac) joint dysfunction Fibromyalgia GERD (gastroesophageal reflux disease) Neuropathy Diabetes Family History Family History Father No problems noted. Mother No problems noted. Surgical History Surgical History (Updated 07/01/24 @ 14:09 by Jennifer Rogers RN) History of esophagogastroduodenoscopy (EGD) History of laparoscopic cholecystectomy (~05/24/24) H/O mastectomy Hx of appendectomy H/O exploratory laparotomy History of surgery Social History Social History Household Members: Spouse Household Members Other:: 1 Housing: House Do you presently have visiting nurse or other home services: Yes Alcohol intake: former Comment: SI 1:1 Patient Tobacco Use Status: Never used Tobacco Tobacco use type: Cigarette e-Cigarette/Vaping Use: Never Used Second Hand Smoke Exposure: No Advance Directives: No Advance Directives Information Provided: Yes Advance Directives Date on File: 06/01/24 service: No Current occupational status: retired Cognitive needs: Yes (cane) Hearing needs: Yes (hearing aide) Vision needs: Yes (glasses) Meds Allergies Allergy/AdvReac Type Severity Reaction Status Date / Time insulin detemir Allergy Severe Itching Verified 07/01/24 14:04 [From Levemir U-100 Insulin] adhesive tape Allergy Intermediate Rash from Verified 07/01/24 14:04 medical tape, tegaderm, etc. bupropion [From Wellbutrin] Allergy Intermediate Rash Verified 07/01/24 14:04 codeine [Codeine] Allergy Intermediate Nausea and Verified 07/01/24 14:04 Vomiting escitalopram Allergy Intermediate lethargy Verified 07/01/24 14:04 NSAIDS (Non-Steroidal Allergy Intermediate Swelling Verified 07/01/24 14:04 Anti-Inflamma oxycodone [From OxyContin] Allergy Intermediate Itching Verified 07/01/24 14:04 pregabalin Allergy Intermediate Confusion Verified 07/01/24 14:04 rosuvastatin [Crestor] AdvReac Intermediate joint pain Verified 07/01/24 14:04 Home Medications ?Medication ?Instructions ?Recorded ?Confirmed ?Last Taken ?Type aspirin 81 mg tablet,delayed 81 mg PO BEDTIME 01/01/21 07/01/24 06/13/24 History release (Adult Aspirin Regimen) biotin 1 mg capsule 1 mg PO DAILY 05/17/21 07/01/24 2 Weeks Ago History ~06/08/24 omega 2-rwm-vhi-fish oil 1,000 mg 1 cap PO DAILY PRN supplemnt 05/17/21 07/01/24 06/13/24 History (120 mg-180 mg) capsule (Fish Oil) blood sugar diagnostic (OneTouch #10 ea 05/27/21 06/20/24 Unknown History Ultra Test strips) levocetirizine 5 mg tablet (Xyzal) 5 mg PO BID Allergy Symptoms 09/09/21 07/01/24 2 Weeks Ago History ~06/08/24 docusate sodium 100 mg capsule 100 mg PO DAILY PRN Constipation 12/28/23 07/01/24 Unknown History (Colace) diclofenac sodium 75 mg 75 mg PO BID PRN Pain 05/23/24 07/01/24 Unknown History tablet,delayed release hydroxyzine pamoate 25 mg capsule 25 mg PO BID PRN Itching 05/23/24 07/01/24 Unknown History insulin glargine 100 unit/mL (3 46 unit subcut DAILY 06/01/24 07/01/24 2 Weeks Ago History mL) subcutaneous pen (Basaglar ~06/08/24 Lucretia U-100 Insulin) ipratropium bromide 42 mcg (0.06 2 spray intranasal QID PRN Allergy 06/01/24 07/01/24 Unknown History %) nasal spray Symptoms furosemide 20 mg tablet 20 mg PO DAILY PRN leg swelling 06/22/24 07/01/24 Unknown History lorazepam 0.5 mg tablet 0.5 mg PO BEDTIME PRN anxiety 06/22/24 07/01/24 Unknown History vitamin B complex 1 cap PO DAILY 06/22/24 07/01/24 2 Weeks Ago History ~03/08/25 Exam Airway Mallampati Class: II TM Dist: >3cm Neck ROM: Full Heart: rrr Lungs: cta Assessment and Plan Assessment Anesthesia Assessment: Anesthesia Plan Discussed Final Anesthetic Review NPO: Yes ASA Class: III Final Preanesthetic Review: No Changes in Pt Med Stat, Meds/Allgs Chart Reviewed and Consent Obtained/Reviewed Procedure Risk: Intermediate Anesthetic Plan Anesthetic Plan: MAC: Disposition: Standard PACU
[2024-07-03 10:43] VITALS: BMI 27.5
[2024-07-03 10:44] VITALS: BMI 27.5
[2024-07-03] MEDS: Lactated Ringers 1,000 ML 100 ML IVCONT (10:58)
[2024-07-03 10:59] VITALS: BP 133/61; PULSE 70; RESP 16; TEMP 36.5; O2SAT 99
--- NOTE | 2024-07-03 11:13 | MHC.SHP ---
Pre-Procedural Eval Section A - 24 Hr Update-Section A only Date of Service: 07/03/24 Section B - Complete if H&P > 30 days Chief Complaint: Gastritis, unspecified, without bleeding Relevant Family History (Specify if Yes): No Relevant Social History: None Present Medications: see Short Stay Collaborative assessment Medical History: Significant History (Duodenal stricture Duodenitis Bilateral cataracts Schizoaffective disorder Confusion Skin rash Vitamin D deficiency HTN (hypertension) HLD (hyperlipidemia) Cellulitis of leg, left Skin excoriation Urinary urgency Encounter to establish care Arthralgia of shoulder region, left Cervical spondylitis wi) History of Previous Operations: Relevant previous surgery/procedure and date(s) (History of esophagogastroduodenoscopy (EGD) History of laparoscopic cholecystectomy (~05/24/24) H/O mastectomy Hx of appendectomy H/O exploratory laparotomy History of surgery) Allergies: Allergies Allergy/AdvReac Type Severity Reaction Status Date / Time insulin detemir Allergy Severe Itching Verified 07/01/24 14:04 [From Levemir U-100 Insulin] adhesive tape Allergy Intermediate Rash from Verified 07/01/24 14:04 medical tape, tegaderm, etc. bupropion [From Wellbutrin] Allergy Intermediate Rash Verified 07/01/24 14:04 codeine [Codeine] Allergy Intermediate Nausea and Verified 07/01/24 14:04 Vomiting escitalopram Allergy Intermediate lethargy Verified 07/01/24 14:04 NSAIDS (Non-Steroidal Allergy Intermediate Swelling Verified 07/01/24 14:04 Anti-Inflamma oxycodone [From OxyContin] Allergy Intermediate Itching Verified 07/01/24 14:04 pregabalin Allergy Intermediate Confusion Verified 07/01/24 14:04 rosuvastatin [Crestor] AdvReac Intermediate joint pain Verified 07/01/24 14:04 Review of Systems Sugical H&P ROS: Negative: Constitution, Cardiovascular, Respiratory, Neurological, Psychiatric, Hem-Onc, Allergic/Immunologic, Gastrointestinal, Genitourinary, Musculoskeletal, Integumentary, Endocrine and Eyes/Ears/Nose/Throat Exam Surgical H&P Exam: Normal: HEENT, Normal: Heart, Normal: Lungs, Normal: Extremities, Normal: Abdomen, Normal: Skin and Normal: Neurological Plan Diagnosis/Plan: Unchanged I have reviewed the history and physical and performed a pertinent physical examination on my patient. No changes have occurred unless specified. Time Spent With Patient Time: Total time managing care of this patient today ____ minutes.
[2024-07-03 11:36] LABS: Magnesium 1.6 mg/dL (1.6-2.6)
[2024-07-03 12:06] LABS: Glucose, Whole Blood 114 mg/dL (60-115)
[2024-07-03 12:14] VITALS: BP 96/45; PULSE 75; RESP 16; TEMP 36.4; O2SAT 99
--- NOTE | 2024-07-03 12:19 | W.PM.OPN ---
Operative Note Operative Note Date of Service: 07/03/24 Narrative: Procedure Description: EGD Indication: duodenal stricture Anesthesia: MAC FLEXIBLE TRANSORAL UPPER GASTROINTESTINAL ENDOSCOPY UPPER ENDOSCOPY Consent: Indications for the procedure and potential complications of bleeding, perforation, reaction to medications and missed diagnosis were discussed with the patient and informed consent was obtained. Instrument: Olympus GIF H 190 J mid size upper endoscope Monitoring: Vital signs and clinical assessment, continuous EKG monitoring, Pulse oximetry, Carbon Dioxide monitoring and blood pressure monitoring were done throughout the procedure. Procedure: The patient was placed in the left lateral decubitis position and pre-procedure medications were administered and a bite block was placed. The endoscope was inserted into the mouth and advanced under direct vision to the third part of duodenum. A careful inspection was made as the upper endoscope was withdrawn including a retroflexed examination of the proximal stomach; Findings and interventions are described below. Findings: Larynx:normal Esophagus: GE junction at 33 cm, diaphragm hiatus at 35 cm, schatzki ring noted with small hiatal hernia Stomach: patchy erythema with nodularity. Biopsies were obtained. Grade 2 flap valve on retroflexed examination of the cardia. Duodenum: duodenal stricture just at the sweep, scope couldnt be passed, a wire was passed and then the stricture was dilated to 13.5 mm with heme noted. Scope was then passed and mucosa distal to this looked normal. bx were taken from the stricture and then 40 mg of kenalog injected into the stricture area. Intervention: Biopsies as noted above, wire guided balloon dilation, kenalog injection Impression/Findings: gastritis schatzki ring with hiatal hernia duodenal stricture PLAN: cont with PPI repeat EGD in 2-4 weeks with repeat dilation and maybe repeat kenalog injection as well if further atypica or dysplasia noted then may need surgery
[2024-07-03 12:36] VITALS: BP 121/63; PULSE 71; RESP 16; TEMP 36.2; O2SAT 99
== END 2024-07-03 13:29 | disposition home or self-care (01) ==
PROVIDERS: Nurse Practitioner; PCP Hospitalist; Visit Provider Internal Medicine Gastroenterology
PROC: (CPT 43245; principal; 2024-07-03 11:50)
DX: K29.50 Unspecified chronic gastritis without bleeding (principal); K31.5 Obstruction of duodenum; K21.9 Gastro-esophageal reflux disease without esophagitis; I10 Essential (primary) hypertension; E78.2 Mixed hyperlipidemia; E03.9 Hypothyroidism, unspecified; E11.9 Type 2 diabetes mellitus without complications; M79.7 Fibromyalgia; G62.9 Polyneuropathy, unspecified; Z79.4 Long term (current) use of insulin; Z79.82 Long term (current) use of aspirin; Z79.899 Other long term (current) drug therapy; Z90.49 Acquired absence of other specified parts of digestive tract; Z88.5 Allergy status to narcotic agent; Z88.8 Allergy status to other drugs, medicaments and biological substances; Z88.6 Allergy status to analgesic agent; L23.1 Allergic contact dermatitis due to adhesives; Z98.890 Other specified postprocedural states
CPT/HCPCS: 43245; 43239; 43236; 36415; 82947; 83735; 88305; 88342; C1726; J2003; J2704; J3301

== ENCOUNTER → 2024-07-03 09:34 | Outpatient (BNV) | payer MEDICARE, OTHER, SELFPAY | PROVIDERS: PCP Hospitalist; Visit Provider Internal Medicine Gastroenterology | DX: K31.5 Obstruction of duodenum (principal); K22.2 Esophageal obstruction; K29.70 Gastritis, unspecified, without bleeding | CPT/HCPCS: 43239; 43245 ==

== ENCOUNTER 2024-07-29 10:21 | Outpatient (AMB) | payer MEDICARE, OTHER, SELFPAY ==
--- NOTE | 2024-07-29 10:23 | MHC.OFFVIS ---
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 bupropion [From Wellbutrin] Allergy (Intermediate, Verified 08/07/24 08:55) Rash codeine [Codeine] Allergy (Intermediate, Verified 08/07/24 08:55) Nausea and Vomiting escitalopram Allergy (Intermediate, Verified 08/07/24 08:55) lethargy NSAIDS (Non-Steroidal Anti-Inflamma Allergy (Intermediate, Verified 08/07/24 08:55) Swelling oxycodone [From OxyContin] Allergy (Intermediate, Verified 08/07/24 08:55) Itching pregabalin Allergy (Intermediate, Verified 08/07/24 08:55) Confusion rosuvastatin [Crestor] Adverse Reaction (Intermediate, Verified 08/07/24 08:55) joint pain Medication List - Last Reconciled 07/29/24 by Aliyah Lopez LPN acetaminophen 650 mg (2 x 325 mg) PO Q6H PRN aspirin (Adult Aspirin Regimen) 81 mg PO BEDTIME biotin 1 mg PO DAILY blood sugar diagnostic (OneTouch Ultra Test strips) check BS 2-3x/day blood sugar diagnostic (OneTouch Ultra Test strips) As directed docusate sodium (Colace) 100 mg PO DAILY PRN furosemide 20 mg PO DAILY PRN gabapentin 400 mg PO TID 30 days hydroxyzine pamoate 25 mg PO BID PRN insulin glargine (Basaglar KwikPen U-100 Insulin) 46 units subcut DAILY ipratropium bromide 2 sprays intranasal QID PRN levocetirizine (Xyzal) 5 mg PO BID levothyroxine 125 mcg PO DAILY@0630 lorazepam 0.5 mg PO BEDTIME PRN magnesium oxide 400 mg PO DAILY omega 6-sfv-hxa-fish oil 1,000 (120-180) mg (Fish Oil) 1 cap PO DAILY PRN ondansetron 4 mg PO Q8H PRN pantoprazole (Protonix) 40 mg PO DAILY@0630 prochlorperazine maleate (Compazine) 10 mg PO Q8H PRN pyridoxine (vitamin B6) 100 mg PO DAILY 90 days simvastatin 40 mg PO BEDTIME vitamin B complex 1 cap PO DAILY HPI HPI Neck/Shoulder Pain: Details: History of Present Illness The patient is a 74-year-old female presenting with chronic neck pain. Her condition has been ongoing and progressively worsening, with neck pain and shoulder discomfort persisting despite previous interventions such as trigger point injections and physical therapy. The pain remains severe enough to limit her cervical range of motion substantially. Acetaminophen and non-steroidal anti-inflammatory drugs provide inadequate relief due to concurrent gastrointestinal issues, further complicating management. Attempts to manage the pain with cortisone injections in other areas of the body were unsuccessful; notably, she has not received these injections in the cervical region. She expresses a desire for consultation with neurosurgery, specifically planning to see Dr. Karan Louis for further management, including potential surgical options. Her capability to remain active is hindered, leading to muscle atrophy and affecting her ability to use assistive devices effectively. Pain Description - Onset: Gradual, over an extended period. - Quality: Persistent, resistant to physical therapy and typical analgesics. - Location: Primarily cervical with shoulder involvement. - Radiation: Chronic cervical radicular pain noted. - Exacerbating Factors: Limited activity due to significant muscular atrophy and pain. - Relieving Factors: Previous attempts at pain relief with trigger point injections were unsuccessful; history of ineffective cortisone injections, but plan to try cervical region next. - Interference: Affects daily activities, leading to dependency on assistive devices and limits active mobility. Physical Exam - Musculoskeletal- Significant limitation in cervical range of motion. Pain Management - Affect: Pain significantly impacts daily functions and causes distress. - Analgesia: Intolerant to NSAIDs; limited relief from acetaminophen. - Adverse Effects: Gastrointestinal issues preclude NSAID use. - Activities of Daily Living: Pain restricts mobility, contributing to muscle atrophy and dependence on assistive devices. - Aberrant Drug Related Behaviors: None reported; history notable for episodes of OD and SI [facility] Medical History (Updated 07/30/24 @ 13:20 by Jennifer Rogers RN) Duodenal stricture Duodenitis Bilateral cataracts Schizoaffective disorder Confusion Skin rash Vitamin D deficiency HTN (hypertension) HLD (hyperlipidemia) Cellulitis of leg, left Urinary urgency Arthralgia of shoulder region, left Cervical spondylitis with radiculitis Myofascial pain on left side Depression OCD (obsessive compulsive disorder) DJD (degenerative joint disease) SI (sacroiliac) joint dysfunction Fibromyalgia GERD (gastroesophageal reflux disease) Neuropathy Diabetes Surgical History (Updated 07/30/24 @ 13:19 by Jennifer Rogers RN) History of esophagogastroduodenoscopy (EGD) History of laparoscopic cholecystectomy (~05/24/24) H/O mastectomy Hx of appendectomy H/O exploratory laparotomy History of surgery Family History Father No problems noted. Mother No problems noted. Social History Household Members: Spouse Household Members Other:: 1 Housing: House Are you a primary client care consultant to a significant other at home: No Do you presently have visiting nurse or other home services: Yes ([facility]) Alcohol intake: former Comment: uses cane and walker at home Patient Tobacco Use Status: Never used Tobacco Tobacco use type: Cigarette e-Cigarette/Vaping Use: Never Used Second Hand Smoke Exposure: No Advance Directives Date on File: 06/01/24 service: No Current occupational status: retired Cognitive needs: Yes (cane) Hearing needs: Yes (hearing aide) Vision needs: Yes (glasses) Physical Exam Vital Signs: Last Vital Signs Pulse 99 07/29/24 10:26 Resp 16 07/29/24 10:26 BP 113/71 07/29/24 10:26 Pulse Ox 98 07/29/24 10:26 Oxygen Delivery Method Room Air 07/29/24 10:26 BMI result Body Mass Index 26.3 Assessment & Plan Assessment & Plan (1) Cervical spinal stenosis: Code(s): M48.02 - Spinal stenosis, cervical region Category: Medical (2) Cervical spondylitis with radiculitis: Code(s): M46.92 - Unspecified inflammatory spondylopathy, cervical region; M54.12 - Radiculopathy, cervical region Category: Medical (3) Myofascial pain on left side: Code(s): M79.18 - Myalgia, other site Category: Medical Plan Plan - Schedule an epidural steroid injection for the cervical region. - Proceed with neurosurgical consultation with Dr. Karan Louis regarding further management. - Refrain from opioid therapy due to high-risk profile. - Seek insurance approval for the neck injection. - Promote increased physical activity to prevent muscle atrophy and enhance quality of life. Patient was informed and verbally consented to the use of an ambient scribe for clinic note documentation during this visit. Discussion Notes During the consultation, I emphasized the necessity of addressing the patient's chronic cervical radicular pain and explained the benefits and limitations of pursuing an epidural steroid injection in the cervical area. I discussed the importance of obtaining insurance authorization promptly and the potential role of surgical intervention, with consultation to be arranged with Dr. Karan Prater. I also reiterated the decision against opioid therapy due to the patient's high-risk assessment and historical data, stressing careful management of her current pain and future interventional considerations. The discussion included potential improvements in pain management and lifestyle with proper intervention while minimizing risks. Patient Instructions - Schedule the cervical epidural steroid injection as planned. - Make an appointment with Dr. Karan Louis for further evaluation. - Avoid use of NSAIDs due to gastrointestinal issues. - Engage in light physical activities to help maintain muscle mass. - Follow up with pain management progress and any concerns. Coding Level of Care Code Est Pt Level 4 (79992) Diagnoses Cervical spinal stenosis M48.02 Cervical spondylitis with radiculitis M46.92; M54.12 Myofascial pain on left side M79.18
[2024-07-29 10:26] VITALS: BP 113/71; PULSE 99; RESP 16; O2SAT 98; BMI 26.3
--- OUTSIDE RECORDS SUMMARY | 2024-07-29 12:04 | XMS_ITS ---
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 Patient chooses, no pharmaceutical tx (09148) Progress Notes * Lizzette MOSQUERA LDOB:1950 (73 yo F)Acc No.[id number]:06/07/2023 Progress Notes Patient:?Lizzette Mosquera Provider:?Cedric Sosa DPM :1950???Age:73 Y???Sex:Female D ate:06/07/2023 Address: [address] [facility] Pcp:Noah Ortega Subjective: * Chief Complaints: * [...] as necessary. Patient chooses, no pharmaceutical tx (56352).? * Procedure Codes:?50663 DEBRI DE NAIL, 6 OR MORE, Modifiers: [...] DPM Date:? 024 Generated for Printi ng/Faelizabethg/eTransmitting on:?07/29/2024 12:04 PM EDT History and Physical Notes * [...]
--- OUTSIDE RECORDS SUMMARY | 2024-07-29 12:05 | XMS_ITS | Patient Health Record ---
Demographics Address [birth year][address] [place], [place] Mobile Email Address Preferred Language en Marital Status Unknown Anabaptism Affiliation Unknown Race White Ethnic Group Unknown Author Organization [facility] Address [address] [facility] [address] [place] [address] Care Team Providers Care Printing Services Coordinator Name Role Phone CARYN CALABRESE Primary Care Provider Isauro Ángel Unavailable [phone] Clintjessicaleatha Herson Unavailable [phone] Allergies Allergen (clinical drug ingredient) Drug/Non Drug Allergy documented on EMR Reaction Allergy Type Onset Date Status Adhesive Unknown Allergy Active codeine Codeine Unknown Drug Allergy Active oxycodone Oxycodone Unknown Drug Allergy Active Results Component Value Reference Range Notes Basic Metabolic Panel [id number] Reviewed date:12/12/2023 08:24:30 AM Interpretation: Performing Lab:Alyce Pires, [address] [facility], Phone - [phone], Director - Ruthy Notes/Report: Clinical Information:SRC: Glucose 160 70-99 mg/dL BUN 22 8-27 mg/dL Creatinine 1.09 0.57-1.00 mg/dL eGFR 53 >59 mL/min/1.73 BUN/Creatinine Ratio 20 12-28 Sodium 143 134-144 mmol/L Potassium 4.7 3.5-5.2 mmol/L Chloride 104 96-106 mmol/L Carbon Dioxide, Total 22 20-29 mmol/L Magnesium-[id number] Reviewed date:12/12/2023 07:57:52 AM Interpretation: Performing Lab:Alyce Pires, [address] [facility], [place], Phone - [phone], Director - Ruthy Notes/Report: Clinical Information:SRC: Magnesium 1.6 1.6-2.3 mg/dL Hemoglobin Z2w-[id number] Reviewed date:12/12/2023 08:24:15 AM Interpretation: Performing Lab:[facility], [address], [place], Phone - [phone], Director - Ruthy Notes/Report: Clinical Information:SRC: Hemoglobin A1c 7.5 4.8-5.6 % . Prediabetes: 5.7 - 6.4 Diabetes: >6.4 Glycemic control for adults with diabetes: <7.0 Reason For Referral Reason Please evaluate and treat. Diagnosis 1 Gastro-esophageal re flux disease without esophagitis (K21.9) Diagnosis 2 Gastritis and duoden itis (K29.90) Referral Organization [facility] Referring Provider First Name CARYN Referring [...] Gastritis and duoden itis (K29.90) Referral Organization [facility] Referring Provider First Name Ángel Referring Provider Last Name Isauro Referring Provider Speciality Internal edicine Referred Provider Specialty Gastroentero logy General Notes Referral faxed. Leenaa call patient to schedule appointment.Danielle Shannon 06/12/2024 10:42:59 AM > Referral Priority Routine Reason shoulder pain plea se evaluate and treat Diagnosis 1 Pain in unspecified shoulder (M25.519) Referral Organization [facility] Referring Provider First Name Herson Referring Provider Last Name Salvador Referred Provider Specialty Orthopedic S urgery General Notes Referral was faxed t o [facility]. Please contact patient for scheduling.Dwayne [...] dx: E08.40 for 30 days 12/18/2023 Active Snapsort Ultra Blue - Use 2-3 times a [...] Status W/U Status Risk Notes Problem Hypothyroidism (94922366) Hypothyroidism, unspecified (E03.9) Active confirmed Problem Diabetic neuropathy (790298461) Diabetes mellitus due to underlying condition with diabetic neuropathy, unspecified (E08.40) Active confirmed Problem Secondary diabetes mellitus (9210012) Diabetes mellitus due to underlying condition with hyperglycemia (E08.65) Active confirmed Problem Mixed hyperlipidemia (137152238) Mixed hyperlipidemia (E78.2) Active confirmed Problem Schizoaffective disorder, depressive type (88823838) Schizoaffective disorder, depressive type (F25.1) Active confirmed Problem Moderate recurrent major depression (06770188) Major depressive disorder, recurrent, moderate (F33.1) Active confirmed Problem Generalized anxiety disorder (70175514) Generalized anxiety disorder (F41.1) Active confirmed Problem Hearing loss (92791600) Unspecified hearing loss, bilateral (H91.93) Active confirmed Problem Gastro-esophageal reflux disease without esophagitis (915835411) Gastro-esophageal reflux disease without esophagitis (K21.9) Active confirmed Problem Obstruction of duodenum (04998552) Obstruction of duodenum (K31.5) Active confirmed Problem Osteoarthritis (383027106) Polyosteoarthritis , unspecified (M15.9) Active confirmed Problem Chronic kidney disease (309899180) Chronic kidney disease, unspecified (N18.9) Active confirmed Problem Long-term current use of insulin (256710976) penitentiary (current) use of insulin (Z79.4) Active confirmed Problem Obsessive-compulsiv e disorder (041961355) Obsessive-compulsi ve disorder, unspecified (F42.9) Active confirmed Problem Amnesia (60557133) Complaints of memory disturbance (R41.3) Active confirmed Problem Gastroesophageal reflux disease with esophagitis (disorder) (986160751) Gastro-esophageal reflux disease with esophagitis, without bleeding (K21.00) Active confirmed Problem Gastritis and duodenitis (745492955) Gastritis and duodenitis (K29.90) Active confirmed Vital Signs Heart Rate 80 /min 06/27/2024 Temperature 98 degrees Fahrenheit 06/27/2024 Blood pressure diastolic 70 mm Hg 06/27/2024 Oximetry 97 % 06/27/2024 Height 5'1 in 06/11/2024 Blood pressure systolic 130 mm Hg 06/27/2024 Weight 160 lbs 06/11/2024 BMI 30.23 kg/m2 06/11/2024 Encounters Encounter Location Date Provider Diagnosis [address] [address] 12/13/2023 CARYN CALABRESE Encounter for genera l adult medical examination without abnormal findings Z00.00 ; Diabetes mellitus due to underlying condition with diabetic neuropathy, unspecified E08.40 ; Mixed hyperlipidemia E78.2 ; Hypothyroidism, unspecified E03.9 ; Generalized anxiety disorder F41.1 and Chronic kidney disease, unspecified N18.[address] [address] 02/08/2024 Herson Grovesum Viral conjunctivitis , unspecified B30.[address] [address] 05/17/2024 [facility] discharge follow-up Z09 ; Schizoaffective disorder, depressive type F25.1 ; Generalized anxiety disorder F41.1 and Diabetes mellitus due to underlying condition with hyperglycemia E08.[address] [address] 06/11/2024 [facility] Schizoaffective disorder, depressive type F25.1 ; Hospital discharge follow-up Z09 ; Generalized anxiety disorder F41.1 ; Diabetes mellitus due to underlying condition with hyperglycemia E08.65 and Gastro-esophageal reflux disease with esophagitis, without bleeding K21.00 [facility] [address] [facility] [address] [place] [address] 06/27/2024 Ángel Box Schizoaffective disorder, depressive type F25.1 ; Hospital discharge follow-up Z09 ; Generalized anxiety disorder F41.1 ; Diabetes mellitus due to underlying condition with hyperglycemia E08.65 ; Gastro-esophageal reflux disease with esophagitis, without bleeding K21.00 and Obstruction of duodenum K31.5 [facility] [address] [facility] [address] [place] [address] 07/19/2024 [facility] [address] [facility] [address] [place] [address] 08/25/2023 [facility] [address] [facility] [address] [place] [address] 08/30/2023 [facility] [address] [facility] [address] [place] [address] 08/31/2023 [facility] [address] [facility] [address] [place] [address] 08/31/2023 [facility] [address] [facility] [address] [place] [address] 10/09/2023 [facility] [address] [facility] [address] [place] [address] 10/23/2023 [facility] [address] [facility] [address] [place] [address] 10/24/2023 [facility] [address] [facility] [address] [place] [address] 10/25/2023 [facility] [address] [facility] [address] [place] [address] 10/27/2023 [facility] [address] [facility] [address] [place] [address] 12/06/2023 [facility] [address] [facility] [address] [place] [address] 12/15/2023 RUBIN L [facility] [address] [facility] [address] [place] [address] 01/02/2024 [facility] [address] [facility] [address] [place] [address] 03/14/2024 Ghadeer Mazloum Pruritus vulvae L29. 2 [facility] [address] [facility] [address] [place] [address] 04/03/2024 Ghadeer Mazloum Pain in unspecified shoulder M25.519 [facility] [address] [facility] [address] [place] [address] 04/03/2024 Ghadeer Mazloum Pain in unspecified shoulder M25.519 [facility] [address] [facility] [address] [place] [address] 04/05/2024 RUBIN GUL Pain in unspecified shoulder M25.519 [facility] [address] [facility] [address] [place] [address] 04/05/2024 [facility] [address] [facility] [address] [place] [address] 05/22/2024 [facility] [address] [facility] [address] [place] [address] 05/29/2024 [facility] [address] [facility] [address] [place] [address] 05/30/2024 Ghadeer Mazloum [facility] [address] [facility] [address] [place] [address] 06/10/2024 RUBIN [facility] [address] [facility] [address] [place] [address] 06/18/2024 [facility] [address] [facility] [address] [place] [address] 06/20/2024 [facility] [address] [facility] [address] [place] [address] 06/21/2024 [facility] [address] [facility] [address] [place] [address] 07/08/2024 [facility] [address] [facility] [address] [place] [address] 07/09/[address] [place] [address] 07/12/[address] [place] [address] 07/16/2024 Ghadeer Mazloum Pain in unspecified shoulder M25.[address] [place] [address] 07/17/2024 Ghadeer Mazloum Pain in unspecified shoulder M25.[address] [place] [address] 07/18/20[facility] [address] [place] [address] 07/22/2024 RUBIN [facility] Assessments Encounter Date Diagnosis (ICD Code) Assessment [...] months. Continue current regimen. She is seen brick paving checker and podiatry in the past 1 year. [...] is noted. Advised patient on taking Ketotifen upxf-fvr-wherkdh eyedrop. She can also start taking partial [...] schizoaffective disorder who was seen in the [place] emergency room on a 05/15 24 for extreme fatigue weakness and then went to [facility] on 05/16/24 for the same complaints is here for posthospital discharge follow-up. Post discharge Hospital follow-up 7 days fatigue weakness poor appetite due to dehydration possible withdrawal from abruptly stopping Cymbalta, in increased dose of Latuda and then discontinuing Latuda completely All lab work has been unremarkable no evidence of any infection notes from [facility] has been reviewed. Discussed at length [...] schizoaffective disorder who was seen in the [place] emergency room on a 05/15 24 for extreme fatigue weakness and then went to [facility] on 05/16/24 for the same complaints is here for posthospital discharge follow-up. Post discharge Hospital follow-up 7 days fatigue weakness poor appetite due to dehydration possible withdrawal from abruptly stopping Cymbalta, in increased dose of Latuda and then discontinuing Latuda completely All lab work has been unremarkable no evidence of any infection notes from [facility] and [facility] has been reviewed. Discussed at length [...] reflux schizoaffective disorder who was admitted to [facility] for acute cholecystitis status post cholecystectomy readmitted for nausea vomiting epigastric pain and dehydration and is here today for a follow-up visit.I reviewed all the reports lab work procedure notes from [facility] discharge paperwork and discussed it with the [...] reflux schizoaffective disorder who was admitted to [facility] for acute cholecystitis status post cholecystectomy readmitted for nausea vomiting epigastric pain and dehydration and is here today for a follow-up visit.I reviewed all the reports lab work procedure notes from [facility] discharge paperwork and discussed it with the [...] reflux schizoaffective disorder who was admitted to [facility] and was discharged on 06/25/24. Post discharge Hospital follow-up 2days days she is feeling much better, she was diagnosed with Severe hypomagnesemia, CT imaging showed duodenal stricture. Status post 2 unsuccessful attempts of duodenal dilatation. Home Care Associate Dr. Russo is planning to do another [...] reflux schizoaffective disorder who was admitted to [facility] and was discharged on 06/25/24. Post discharge Hospital follow-up 2days days she is feeling much better, she was diagnosed with Severe hypomagnesemia, CT imaging showed duodenal stricture. Status post 2 unsuccessful attempts of duodenal dilatation. Home Care Associate Dr. Russo is planning to do another [...] reflux schizoaffective disorder who was admitted to [facility] and was discharged on 06/25/24. Post discharge Hospital follow-up 2days days she is feeling much better, she was diagnosed with Severe hypomagnesemia, CT imaging showed duodenal stricture. Status post 2 unsuccessful attempts of duodenal dilatation. Home Care Associate Dr. Russo is planning to do another [...] reflux schizoaffective disorder who was admitted to [facility] for acute cholecystitis status post cholecystectomy readmitted for nausea vomiting epigastric pain and dehydration and is here today for a follow-up visit.I reviewed all the reports lab work procedure notes from [facility] discharge paperwork and discussed it with the [...] schizoaffective disorder who was seen in the [place] emergency room on a 05/15 24 for extreme fatigue weakness and then went to [facility] on 05/16/24 for the same complaints is here for posthospital discharge follow-up. Post discharge Hospital follow-up 7 days fatigue weakness poor appetite due to dehydration possible withdrawal from abruptly stopping Cymbalta, in increased dose of Latuda and then discontinuing Latuda completely All lab work has been unremarkable no evidence of any infection notes from [facility] has been reviewed. Discussed at length [...] months. Continue current regimen. She is seen brick paving checker and podiatry in the past 1 year. [...] months. Continue current regimen. She is seen brick paving checker and podiatry in the past 1 year. [...] schizoaffective disorder who was seen in the [place] [facility] emergency room on a 05/15 24 for extreme fatigue weakness and then went to [facility] on 05/16/24 for the same complaints is here for posthospital discharge follow-up. Post discharge Hospital follow-up 7 days fatigue weakness poor appetite due to dehydration possible withdrawal from abruptly stopping Cymbalta, in increased dose of Latuda and then discontinuing Latuda completely All lab work has been unremarkable no evidence of any infection notes from [facility] and [facility] has been reviewed. Discussed at length [...] reflux schizoaffective disorder who was admitted to [facility] for acute cholecystitis status post cholecystectomy readmitted for nausea vomiting epigastric pain and dehydration and is here today for a follow-up visit.I reviewed all the reports lab work procedure notes from [facility] discharge paperwork and discussed it with the [...] reflux schizoaffective disorder who was admitted to [facility] and was discharged on 06/25/24. Post discharge Hospital follow-up 2days days she is feeling much better, she was diagnosed with Severe hypomagnesemia, CT imaging showed duodenal stricture. Status post 2 unsuccessful attempts of duodenal dilatation. Home Care Associate Dr. Russo is planning to do another [...] reflux schizoaffective disorder who was admitted to [facility] and was discharged on 06/25/24. Post discharge Hospital follow-up 2days days she is feeling much better, she was diagnosed with Severe hypomagnesemia, CT imaging showed duodenal stricture. Status post 2 unsuccessful attempts of duodenal dilatation. Home Care Associate Dr. Russo is planning to do another [...] reflux schizoaffective disorder who was admitted to [facility] for acute cholecystitis status post cholecystectomy readmitted for nausea vomiting epigastric pain and dehydration and is here today for a follow-up visit.I reviewed all the reports lab work procedure notes from [facility] discharge paperwork and discussed it with the [...] months. Continue current regimen. She is seen brick paving checker and podiatry in the past 1 year. [...] months. Continue current regimen. She is seen brick paving checker and podiatry in the past 1 year. [...] reflux schizoaffective disorder who was admitted to [facility] and was discharged on 06/25/24. Post discharge Hospital follow-up 2days days she is feeling much better, she was diagnosed with Severe hypomagnesemia, CT imaging showed duodenal stricture. Status post 2 unsuccessful attempts of duodenal dilatation. Home Care Associate Dr. Russo is planning to do another [...] months. Continue current regimen. She is seen brick paving checker and podiatry in the past 1 year. [...] Future Test Test Name Order Date Hemoglobin [id number] 12/13/2023 Albumin/Creatinine Ratio,Urine-[id number] Lipid Panel-[id number] 12/13/2023 Comp. Metabolic Panel [id number] 2023 TSH+Free T4 12/13/2023 Insurance Providers Payer Name Payer Address Payer Phone Subscriber Number Group Number Insured Name Patient Relationship to Insured Coverage Start Date Coverage End Date Medicare [address] [facility] [place] [phone] [id number] Lizzette Steiner Self - patient is the insured 9 [employer] ([employer]) [address] [place] [address] [id number] Lizzette Steiner Self - patient is the insured Medical (General) History Medical History History ICD Code CATIE/MDD see Dr Le Psy OCD Hyperlipidemia roasterman use 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
--- OUTSIDE RECORDS SUMMARY | 2024-07-29 12:05 | XMS_ITS ---
Demographics Address [address] [place] [address] Email Address Preferred Language en Marital Status Restorationism Affiliation Unknown Race White Ethnic Group Not or Lati no Author Organization [facility] Address [address] [place] [address] Support Name Relationship Address Phone Rigo Jin Emergency Contact [address] [place], [place] [id number] Lizzette Mosquera Guarantor Unknown Care Team Providers Care Senior Genetic Counselor Name Role Phone Noah Ortega Primary Care Provider Cedric Rueda [phone] REASON FOR VISIT SHANK TURNER PPWK Entered Encounters Encounter Location Date Provider Diagnosis [facility] [address] [place] [address] 04/21/2023 Cedric Sosa Plan Of Treatment No Information Progress Notes * Lizzette MOSQUERA LDOB:1950 (72 yo F)Acc No.[id number]:04/21/2023 Patient:?Obdulia Lizzette Ford :1950???Age:72 Y???Sex:Female Address:[address] [place] [address] * true * Date:? Generated for Ruthi nancy/Charis/eTransmitting on:?07/29/2024 12:04 PM EDT
--- OUTSIDE RECORDS SUMMARY | 2024-07-29 12:05 | XMS_ITS ---
Demographics Address [address] [place], [place] Mobile Email Address Preferred Language en Marital Status Unknown Religion Affiliation Unknown Race White Ethnic Group Unknown Author Organization [facility] Address [address] [address] Care Team Providers Care Environmental Health And Safety Intern Name Role Phone CARYN CALABRESE Primary Care Provider Herson Franco [phone] REASON FOR VISIT Alternative Med to Tramadol Encounters Encounter Location Date Provider Diagnosis [facility] [address] [address] 07/18/2024 Herson Franco Plan Of Treatment No Information Progress Notes * JAMARPete CHENDavidB:[birth year] (74 yo F)Acc No.[id number]:07/18/2024 Patient:?Lizzette MOSQUERA :1950???Age:74 Y???Sex:Female Address:[address] [facility] [place], [place] * true * Date:? Generated for Ruthi nancy/Charis/eTransmitting on:?07/29/2024 12:05 PM EDT
--- OUTSIDE RECORDS SUMMARY | 2024-07-29 12:05 | XMS_ITS ---
Demographics Address [address] [place], [place] Mobile Email Address Preferred Language en Marital Status Unknown Confucianist Affiliation Unknown Race White Ethnic Group Unknown Author Organization [facility] Address [address] [facility] [address] [place] [address] Care Team Providers Care Public Information Director Name Role Phone CARYN CALABRESE Primary Care Provider Encounters Encounter Location Date Provider Diagnosis [facility] [address] [facility] [address] [place] [address] 07/22/2024 CARYN CALABRESE Plan Of Treatment No Information Progress Notes * Alvaro MOSQUERAB:[birth year] (74 yo F)Acc No.[id number]:07/22/2024 Patient:?EVELINE Lizzette :1950???Age:74 Y???Sex:Female Address:[address] [place], [place] * true * Date:? Generated for Royer cruz/Charis/eTransmitting on:?07/29/2024 12:05 PM EDT
--- OUTSIDE RECORDS SUMMARY | 2024-07-29 12:05 | XMS_ITS ---
Demographics Address [address] [place], [place] Mobile Email Address Preferred Language en Marital Status Unknown Catholic Affiliation Unknown Race White Ethnic Group Unknown Author Organization [facility] Address [address] [address] Care Team Providers Care Motor Vehicle Representative Name Role Phone DEMARCUSCARYN Ford Primary Care Provider [phone] Herson Franco [phone] REASON FOR VISIT Call Back Req to Discuss Tramadol Encounters Encounter Location Date Provider Diagnosis [facility] [address] [address] 07/19/2024 Herson Franco Plan Of Treatment No Information Progress Notes * Edda MOSQUERA:[birth year] (74 yo F)Acc No.[id number]:07/19/2024 Patient:?Lizzette MOSQUERA :1950???Age:74 Y???Sex:Female Address:[address] [facility] [place], [place] * * Date:?
--- OUTSIDE RECORDS SUMMARY | 2024-07-29 12:05 | XMS_ITS | Clinical Summary ---
Demographics Address [address] [place] [address] Home Phone Email Address Preferred Language Romanian Marital Status Religion Affiliation Unknown Race White Ethnic Group Not or Lati no Author Organization [facility] Address [address] [place] [id number] Support Name Relationship Address Phone Rigo Steiner Emergency Contact [address] [facility] [place] [address] Care Team Providers Care Fixer Boarding Room Name Role Phone Obi Miller MD Primary Care Provider [phone] Allergies Active Allergy Reactions Criticality Noted Date [...] Lizzette Steiner Personal/Family Self 1950 [address] [place] [address] Care Teams Fixer Boarding Room Relationship Specialty Start Date End Date Obi Miller MD [address] [place] [id number] PCP - General Internal Medicine 01/31/18
--- OUTSIDE RECORDS SUMMARY | 2024-07-29 12:05 | XMS_ITS | Patient Health Record ---
Demographics Address [address] [place] [address] Email Address Preferred Language en Marital Status Zoroastrian Affiliation Unknown Race White Ethnic Group Not or Lati no Author [facility] Address [address] [facility] [place] [address] Support Name Relationship Address Phone Rigo Jin Emergency Contact [address] [place] [address] Lizzette Steiner Guarantor Unknown Care Team Providers Care Monumental Stonemason Name Role Phone Tyrone Ortegad Primary Care Provider Cedric Rueda Unavailable [phone] Allergies Allergen (clinical drug ingredient) Drug/Non Drug [...] Status Risk Notes Problem Contusion of foot (45223895) Contusion of foot (924.20) Active confirmed Problem Edema (19855656) Edema (782.3) Active confirmed Problem Neurologic disorder associated with type II diabetes mellitus (585024372) Diabetic - NIDDM/Neuropathy (250.60) Active confirmed Problem Polyneuropathy due to type 2 diabetes mellitus (715586345) Type 2 diabetes mellitus with diabetic polyneuropathy (E11.42) Active confirmed Plan Of Treatment Pending Test Test Name Order Date X ray : Foot, left 3V 02/23/2011 Insurance Providers Payer Name Payer Address Payer Phone Subscriber Number Group Number Insured Name Patient Relationship to Insured Coverage Start Date Coverage End Date Medicare National [employer]t Sv[employer] [address] [place] [address] [id number] Lizzette Steiner Self - patient is the insured [employer]) [address] [place] [id number] Rigo Steiner Spouse - patient is the spouse of the insured Medical (General) History Medical History History ICD Code breast cancer chicken pox thyroid disorder measles diabetic depression Anxiety Arthritis asthma Back,Hip,and Knee pain Cataracts Depression Fibromyalgia Numbness Psychiatric disorder Hearing loss Surgical History Surgery Date(Month/Year) right mastectomy Left shoulder 3 Spurs
== END 2024-07-29 11:06 | disposition home or self-care (01) ==
LOC: HO.PMC 10:21
PROVIDERS: PCP Hospitalist; Visit Provider Internal Medicine
DX: M48.02 Spinal stenosis, cervical region (principal); M46.92 Unspecified inflammatory spondylopathy, cervical region; M54.12 Radiculopathy, cervical region; M79.18 Myalgia, other site
CPT/HCPCS: 99214

== ENCOUNTER → 2024-07-29 10:21 | Outpatient (BNVA) | payer MEDICARE, OTHER, SELFPAY | PROVIDERS: PCP Hospitalist; Visit Provider Internal Medicine | DX: M48.02 Spinal stenosis, cervical region (principal); M46.92 Unspecified inflammatory spondylopathy, cervical region; M54.12 Radiculopathy, cervical region; M79.18 Myalgia, other site | CPT/HCPCS: 99212 ==

== ENCOUNTER 2024-08-01 07:53 | Day surgery (SDC) | payer MEDICARE, OTHER, SELFPAY ==
--- OUTSIDE RECORDS SUMMARY | 2024-07-26 14:57 | XMS_ITS ---
Demographics Address [address] [place] [address] Email Address Preferred Language en Marital Status Congregation Affiliation Unknown Race White Ethnic Group Not or Lati no Author Organization [facility] Address [address] [place] [address] Support Name Relationship Address Phone Rigo Jin Emergency Contact [address] [place], [place] [id number] Lizzette Mosquera Guarantor Unknown Care Team Providers Care Mentally Retarded Teacher Name Role Phone Noah Ortega Primary Care Provider Cedric Rueda [phone] REASON FOR VISIT HOSPICE CARE TRANSITIONS COORDINATOR PPWK Entered Encounters Encounter Location Date Provider Diagnosis [facility] [address] [place] [address] 04/21/2023 Cedric Sosa Plan Of Treatment No Information Progress Notes * Lizzette MOSQUERA LDOB:1950 (72 yo F)Acc No.[id number]:04/21/2023 Patient:?Obdulia Lizzette Ford :1950???Age:72 Y???Sex:Female Address:[address] [place] [address] * true * Date:? Generated for Ruthi nancy/Charis/eTransmitting on:?07/26/2024 02:57 PM EDT
--- OUTSIDE RECORDS SUMMARY | 2024-07-26 14:57 | XMS_ITS ---
Demographics Address [address] [place], [place] Mobile Email Address Preferred Language en Marital Status Unknown Orthodox Affiliation Unknown Race White Ethnic Group Unknown Author Organization [facility] Address [address] [address] Care Team Providers Care Communications Assistant Name Role Phone CARYN CALABRESE Primary Care Provider [phone] Herson Franco [phone] REASON FOR VISIT Alternative Med to Tramadol Encounters Encounter Location Date Provider Diagnosis [facility] [address] [address] 07/18/2024 Herson Franco Plan Of Treatment No Information Progress Notes * JAMARPete CHENDavidB:[birth year] (74 yo F)Acc No.[id number]:07/18/2024 Patient:?Lizzette MOSQUERA :1950???Age:74 Y???Sex:Female Address:[address] [facility] [place], [place] * true * Date:? Generated for Ruthi nancy/Charis/eTransmitting on:?07/26/2024 02:57 PM EDT
--- OUTSIDE RECORDS SUMMARY | 2024-07-26 14:57 | XMS_ITS | Clinical Summary ---
Demographics Address [address] [place] [address] Home Phone Email Address Preferred Language Maori Marital Status Faith Affiliation Unknown Race White Ethnic Group Not or Lati no Author Organization [facility] Address [address] [place] [address] Support Name Relationship Address Phone Rigo Steiner Emergency Contact [address] [facility] [place] [address] Care Team Providers Care Armature Repairer Name Role Phone Obi Miller MD Primary Care Provider [phone] Allergies Active Allergy Reactions Criticality Noted Date [...] Lizzette Steiner Personal/Family Self 1950 [address] [place] [address] Care Teams Armature Repairer Relationship Specialty Start Date End Date Obi Miller MD [address] [place] [address] PCP - General Internal Medicine 01/31/18
--- OUTSIDE RECORDS SUMMARY | 2024-07-26 14:57 | XMS_ITS ---
Demographics Address [address] [place] [address] Email Address Preferred Language en Marital Status Anabaptist Affiliation Unknown Race White Ethnic Group Not or Lati no Author Organization [facility] Address [address] [place] [address] Support Name Relationship Address Phone Rigo Jin Emergency Contact [address] [place], [place] [id number] Lizzette Mosquera Guarantor Unknown Care Team Providers Care Packing Line Worker Name Role Phone Noah Ortega Primary Care Provider Cedirc Rueda Unavailable [phone] Allergies Allergen (clinical drug ingredient) Drug/Non Drug [...] Polyneuropathy due to type 2 diabetes mellitus (293700864) Type 2 diabetes mellitus with diabetic polyneuropathy (E11.42) Active confirmed Vital Signs Height 5 ft 1 in in 06/07/2023 Weight 155 lbs 06/07/2023 BMI 29.28 kg/m2 06/07/2023 Encounters Encounter Location Date Provider Diagnosis [facility] [place] [address] [place] [address] 06/07/2023 Cedric Sosa Type 2 diabetes mellitus [...] as necessary. Patient chooses, no pharmaceutical tx (16845) Progress Notes * Lizzette MOSQUERA LDOB:1950 (73 yo F)Acc No.[id number]:06/07/2023 Progress Notes Patient:?Lizzette Mosquera Provider:?Cedric Sosa DPM :1950???Age:73 Y???Sex:Female D ate:06/07/2023 Address: [address] [id number] Pcp:Noah Ortega Subjective: * Chief Complaints: * [...] as necessary. Patient chooses, no pharmaceutical tx (35032).? * Procedure Codes:?85711 DEBRI DE NAIL, 6 OR MORE, Modifiers: [...] DPM Date:? 024 Generated for Printi ng/Faelizabethg/eTransmitting on:?07/26/2024 02:57 PM EDT History and Physical Notes * [...]
--- OUTSIDE RECORDS SUMMARY | 2024-07-26 14:57 | XMS_ITS | Patient Health Record ---
Demographics Address [address] [place] [address] Email Address Preferred Language en Marital Status Jain Affiliation Unknown Race White Ethnic Group Not or Lati no Author Organization [facility] Address [address] [facility] [place] [address] Support Name Relationship Address Phone Rigo Jin Emergency Contact [address] [place] [address] Lizzette Steiner Guarantor Unknown Care Team Providers Care Tape Editor Name Role Phone Tyrone Ortegad Primary Care Provider Cedric Rueda Unavailable [phone] Allergies Allergen (clinical drug ingredient) Drug/Non Drug [...] Status Risk Notes Problem Contusion of foot (50578422) Contusion of foot (924.20) Active confirmed Problem Edema (38434914) Edema (782.3) Active confirmed Problem Neurologic disorder associated with type II diabetes mellitus (955566573) Diabetic - NIDDM/Neuropathy (250.60) Active confirmed Problem Polyneuropathy due to type 2 diabetes mellitus (976156961) Type 2 diabetes mellitus with diabetic polyneuropathy (E11.42) Active confirmed Plan Of Treatment Pending Test Test Name Order Date X ray : Foot, left 3V 02/23/2011 Insurance Providers Payer Name Payer Address Payer Phone Subscriber Number Group Number Insured Name Patient Relationship to Insured Coverage Start Date Coverage End Date Medicare National [employer] [address] [place] [address] [id number] Lizzette Steiner Self - patient is the insured [employer]) [address] [place] [id number] [phone] [id number] Rigo Steiner Spouse - patient is the spouse of the insured Medical (General) History Medical History History ICD Code breast cancer chicken pox thyroid disorder measles diabetic depression Anxiety Arthritis asthma Back,Hip,and Knee pain Cataracts Depression Fibromyalgia Numbness Psychiatric disorder Hearing loss Surgical History Surgery Date(Month/Year) right mastectomy Left shoulder 3 Spurs
--- OUTSIDE RECORDS SUMMARY | 2024-07-26 14:57 | XMS_ITS ---
Demographics Address [address] [place], [place] Mobile Email Address Preferred Language en Marital Status Unknown Zoroastrianism Affiliation Unknown Race White Ethnic Group Unknown Author Organization [facility] Address [address] [address] Care Team Providers Care Tax Associate Name Role Phone DEMARCUSCARYN Ford Primary Care Provider Herson Franco [phone] REASON FOR VISIT Call Back Req to Discuss Tramadol Encounters Encounter Location Date Provider Diagnosis [facility] [address] [address] 07/19/2024 Herson Franco Plan Of Treatment No Information Progress Notes * Edda MOSQUERA:[birth year] (74 yo F)Acc No.[id number]:07/19/2024 Patient:?Lizzette MOSQUERA :1950???Age:74 Y???Sex:Female Address:[address] [facility] [place], [place] * * Date:?
--- OUTSIDE RECORDS SUMMARY | 2024-07-26 14:58 | XMS_ITS ---
Demographics Address [birth year][address] [place], [place] Mobile Email Address Preferred Language en Marital Status Unknown Yazidi Affiliation Unknown Race White Ethnic Group Unknown Author Organization [facility] Address [address] [facility] [address] [place] [address] Care Team Providers Care Management And Budget Analyst Name Role Phone CARYN CALABRESE Primary Care Provider Encounters Encounter Location Date Provider Diagnosis [facility] [address] [facility] [address] [place] [address] 07/22/2024 CARYN CALABRESE Plan Of Treatment No Information Progress Notes * Alvaro MOSQUERAB:[birth year] (74 yo F)Acc No.[id number]:07/22/2024 Patient:?EVELINE Lizzette :1950???Age:74 Y???Sex:Female [facility] [facility] [place] * true * Date:? Generated for Royer cruz/Charis/eTransmitting on:?07/26/2024 02:57 PM EDT
--- OUTSIDE RECORDS SUMMARY | 2024-07-26 14:58 | XMS_ITS | Patient Health Record ---
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 Name Role Phone CARYN CALABRESE Primary Care Provider Isauro Ángel Unavailable [phone] Clintjessicaleatha Herson Unavailable [phone] Allergies Allergen (clinical drug ingredient) Drug/Non Drug Allergy documented on EMR Reaction Allergy Type Onset Date Status Adhesive Unknown Allergy Active codeine Codeine Unknown Drug Allergy Active oxycodone Oxycodone Unknown Drug Allergy Active Results Component Value Reference Range Notes Basic Metabolic Panel [id number] Reviewed date:12/12/2023 08:24:30 AM Interpretation: Performing Lab:Alyce Pires, [address] [facility], Phone - [phone], Director - Ruthy Notes/Report: Clinical Information:SRC: Glucose 160 70-99 mg/dL BUN 22 8-27 mg/dL Creatinine 1.09 0.57-1.00 mg/dL eGFR 53 >59 mL/min/1.73 BUN/Creatinine Ratio 20 12-28 Sodium 143 134-144 mmol/L Potassium 4.7 3.5-5.2 mmol/L Chloride 104 96-106 mmol/L Carbon Dioxide, Total 22 20-29 mmol/L [id number] Reviewed date:12/12/2023 07:57:52 AM Interpretation: Performing Lab:Alyce Pires, [address] [facility], [place], Phone - [phone], Director - Ruthy Notes/Report: Clinical Information:SRC: Magnesium 1.6 1.6-2.3 mg/dL Hemoglobin [id number] Reviewed date:12/12/2023 08:24:15 AM Interpretation: Performing Lab:[facility], [address], [place], Phone - [phone], Director - Ruthy Notes/Report: Clinical Information:SRC: Hemoglobin A1c 7.5 4.8-5.6 % . Prediabetes: 5.7 - 6.4 Diabetes: >6.4 Glycemic control for adults with diabetes: <7.0 Reason For Referral Reason Please evaluate and treat. Diagnosis 1 Gastro-esophageal re flux disease without esophagitis (K21.9) Diagnosis 2 Gastritis and duoden itis (K29.90) Referral Organization [facility] Referring Provider First Name CARYN Referring Provider Last Name BHARATI Referring Provider Speciality Internal M edicine Referred Provider Specialty Gastroentero logy General Notes Referral faxed. Leenaa se call patient to schedule appointment.Danielle Shannon 06/11/2024 02:40:05 PM > Referral Priority Routine Reason Dr. Dez Inman Diagnosis 1 Gastro-esophageal re flux disease with esophagitis, without bleeding (K21.00) Diagnosis 2 Gastritis and duoden itis (K29.90) Referral Organization [facility] Referring Provider First Name Ángel Referring Provider Last Name Isauro Referring Provider Speciality Internal edicine Referred Provider Specialty Gastroentero logy General Notes Referral faxed. Leenaa call patient to schedule appointment.Danielle Shannon 06/12/2024 10:42:59 AM > Referral Priority Routine Reason shoulder pain plea se evaluate and treat Diagnosis 1 Pain in unspecified shoulder (M25.519) Referral Organization [facility] Referring Provider First Name Herson Referring Provider Last Name Salvador Referred Provider Specialty Orthopedic S urgery General Notes Referral was faxed t o [facility]. Please contact patient for scheduling.Dwayne Rashida 07/09/2024 04:51:57 PM > Referral Priority Routine Medications Medication SIG (Take, Route, Frequency, Duration) Notes Start Date End Date Status Pantoprazole Sodium 40 MG 1 tablet 1/2 to 1 hour before morning meal Orally Once a day for 30 days Active Gabapentin 400 MG TAKE 1 CAPSULE BY MOUTH 3 TIMES A DAY FOR 30 DAYS for 30 Active BD Pen Needle Short U/F 31G X 8 MM use to inject insulin daily dx: E08.40 for 30 days 12/18/2023 Active Snyppit Ultra Blue - Use 2-3 times a da y In Vitro for 90 days 10/27/2023 Active [facility] Glucose Meter Test Strips - as directed 3 times a day for 90 days e11.9 Active Levothyroxine Sodium 125 MCG 1 tablet in the morning on an empty stomach Orally Once a day for 90 days Active Simvastatin 40 MG 1 tablet in the evening Orally Once a day for 90 days Active traMADol HCl 50 MG 1/2 tablet as needed Orally Once a day for 5 days 07/17/2024 Active Basaglar KwikPen 100 UNIT/ML 50 units Subcutaneous once a day for 30 days Active hydrOXYzine HCl 25 MG 1 tablet as needed Orally Once a day for 30 days Active ZyrTEC Allergy 10 MG 1 tablet Orally Onc e a day Not-Taking Lidoderm 5 % 1 patch remove after 12 hours Externally Once a day 06/13/2023 Active Sucralfate 1 GM 1 tablet on an empty stomach Orally Twice a day for 30 days 02/10/2023 Not-Taking LORazepam 0.5 MG 1 tablet Orally daily prn & [address] Gennaro Chow Active Centrum Silver - as directed Orally Not-Taking NexIUM 40 MG 1 capsule Orally Once a day for 30 days 02/10/2023 Not-Taking traMADol HCl 25 MG as directed Orally once a day for 5 days 07/16/2024 Active Colace 100 MG 1 capsule as needed Orally Once a day Active Aspirin Adult Low Dose 81 MG 1 tablet Orally Once a day Active Xyzal Allergy 24HR 5 MG 1 tablet in the evening Orally Once a day Active Cymbalta 30 MG 1 capsule Orally 2 times a day 03/28/2023 Not-Taking Magnesium 400 MG 1 capsule Orally once a day for 30 days Active Acetaminophen ER 650 MG 2 tablets as needed Orally every 8 hrs Active Fish Oil 1000 MG 1 capsule Orally Once a day Not-Taking Lasix 20 [...] a day Not-Taking Vitamin D3 50 MCG (2000 UT) 1 tablet Orally Once a day Active Vitamin B6 100 MG 1 tablet Orally Once a day Active Diclofenac Sodium 75 MG 1 tablet Orally Twice a day for 30 days Active guaiFENesin 100 MG/5ML as directed Orally Active Fluocinolone Acetonide 0.025 % 1 application Externally Twice a day for 30 days 03/15/2024 Active Fluocinolone Acetonide 0.025 % APPLY AM AND PM TO VAGINAL/ANAL AREA TWICE WEEKLY (MONDAY & MONDAY) FOR 2 WEEKS. THEN STARTING WEEK 3 USE AM & PM MONDAY, MONDAY, MONDAY UNTIL APPOINTMENT for 21 Active Immunizations Vaccine Route Administration Date Status Comme nts COVID Moderna Unknown 05/29/2020 Administered COVID Moderna Unknown 06/26/2020 Administered COVID Moderna Unknown 02/28/2021 Administered Flu Unknown 01/16/2023 Administered Shingrix Unknown 06/11/2021 Administered Shingrix Unknown 09/13/2021 Administered Problems Problem Type SNOMED Code ICD Code Onset Dates Problem Status W/U Status Risk Notes Problem Hypothyroidism (18465561) Hypothyroidism, unspecified (E03.9) Active confirmed Problem Diabetic neuropathy (440345330) Diabetes mellitus due to underlying condition with diabetic neuropathy, unspecified (E08.40) Active confirmed Problem Secondary diabetes mellitus (0197082) Diabetes mellitus due to underlying condition with hyperglycemia (E08.65) Active confirmed Problem Mixed hyperlipidemia (481899682) Mixed hyperlipidemia (E78.2) Active confirmed Problem Schizoaffective disorder, depressive type (54740251) Schizoaffective disorder, depressive type (F25.1) Active confirmed Problem Moderate recurrent major depression (55688991) Major depressive disorder, recurrent, moderate (F33.1) Active confirmed Problem Generalized anxiety disorder (59500149) Generalized anxiety disorder (F41.1) Active confirmed Problem Hearing loss (58616635) Unspecified hearing loss, bilateral (H91.93) Active confirmed Problem Gastro-esophageal reflux disease without esophagitis (330087763) Gastro-esophageal reflux disease without esophagitis (K21.9) Active confirmed Problem Obstruction of duodenum (25935150) Obstruction of duodenum (K31.5) Active confirmed Problem Osteoarthritis (384856313) Polyosteoarthritis , unspecified (M15.9) Active confirmed Problem Chronic kidney disease (870619128) Chronic kidney disease, unspecified (N18.9) Active confirmed Problem Long-term current use of insulin (783344772) care home (current) use of insulin (Z79.4) Active confirmed Problem Obsessive-compulsiv e disorder (529993342) Obsessive-compulsi ve disorder, unspecified (F42.9) Active confirmed Problem Amnesia (33513932) Complaints of memory disturbance (R41.3) Active confirmed Problem Gastroesophageal reflux disease with esophagitis (disorder) (415575026) Gastro-esophageal reflux disease with esophagitis, without bleeding (K21.00) Active confirmed Problem Gastritis and duodenitis (286197735) Gastritis and duodenitis (K29.90) Active confirmed Vital Signs Heart Rate 80 /min 06/27/2024 Temperature 98 degrees Fahrenheit 06/27/2024 Blood pressure diastolic 70 mm Hg 06/27/2024 Oximetry 97 % 06/27/2024 Height 5'1 in 06/11/2024 Blood pressure systolic 130 mm Hg 06/27/2024 Weight 160 lbs 06/11/2024 BMI 30.23 kg/m2 06/11/2024 Encounters Encounter Location Date Provider Diagnosis [address] [address] 12/13/2023 CARYN CALABRESE Encounter for genera l adult medical examination without abnormal findings Z00.00 ; Diabetes mellitus due to underlying condition with diabetic neuropathy, unspecified E08.40 ; Mixed hyperlipidemia E78.2 ; Hypothyroidism, unspecified E03.9 ; Generalized anxiety disorder F41.1 and Chronic kidney disease, unspecified N18.[address] [address] 02/08/2024 Herson [place] Viral conjunctivitis , unspecified B30.[address] [address] 05/17/2024 [facility] discharge follow-up Z09 ; Schizoaffective disorder, depressive type F25.1 ; Generalized anxiety disorder F41.1 and Diabetes mellitus due to underlying condition with hyperglycemia E08.[address] [address] 06/11/2024 [facility] Schizoaffective disorder, depressive type F25.1 ; Hospital discharge follow-up Z09 ; Generalized anxiety disorder F41.1 ; Diabetes mellitus due to underlying condition with hyperglycemia E08.65 and Gastro-esophageal reflux disease with esophagitis, without bleeding K21.00 [facility] [address] [place] [address] 06/27/2024 Ángel Box Schizoaffective disorder, depressive type F25.1 ; Hospital discharge follow-up Z09 ; Generalized anxiety disorder F41.1 ; Diabetes mellitus due to underlying condition with hyperglycemia E08.65 ; Gastro-esophageal reflux disease with esophagitis, without bleeding K21.00 and Obstruction of duodenum K31.5 [facility] [address] [place] [address] 07/19/2024 [facility] [address] [place] [address] 08/25/2023 [facility] [address] [place] [address] 08/30/2023 [facility] [address] [place] [address] 08/31/2023 [facility] [address] [place] [address] 08/31/2023 [facility] [address] [place] [address] 10/09/2023 [facility] [address] [place] [address] 10/23/2023 [facility] [address] [place] [address] 10/24/2023 [facility] [address] [place] [address] 10/25/2023 [facility] [address] [place] [address] 10/27/2023 [facility] [address] [place] [address] 12/06/2023 [facility] [address] [place] [address] 12/15/2023 RUBIN L [facility] [address] [place] [address] 01/02/2024 [facility] [address] [place] [address] 03/14/2024 Ghadeer Mazloum Pruritus vulvae L29. 2 [facility] [address] [place] [address] 04/03/2024 Ghadeer Mazloum Pain in unspecified shoulder M25.519 [facility] [address] [place] [address] 04/03/2024 Ghadeer Mazloum Pain in unspecified shoulder M25.519 [facility] [address] [place] [address] 04/05/2024 RUBIN GUL Pain in unspecified shoulder M25.519 [facility] [address] [place] [address] 04/05/2024 [facility] [address] [place] [address] 05/22/2024 [facility] [address] [place] [address] 05/29/2024 [facility] [address] [place] [address] 05/30/2024 Ghadeer Mazloum [facility] [address] [place] [address] 06/10/2024 RUBIN [facility] [address] [place] [address] 06/18/2024 [facility] [address] [place] [address] 06/20/2024 [facility] [address] [place] [address] 06/21/2024 [facility] [address] [place] [address] 07/08/2024 [facility] [address] [place] [address] 07/09/[address] [place] [address] 07/12/[address] [place] [address] 07/16/2024 Ghadeer Mazloum Pain in unspecified shoulder M25.[address] [place] [address] 07/17/2024 Ghadeer Mazloum Pain in unspecified shoulder M25.[address] [place] [address] 07/18/2024 [facility] [address] [place] [address] 07/22/2024 RUBIN [facility] Assessments Encounter Date Diagnosis (ICD Code) Assessment [...] months. Continue current regimen. She is seen medical staff credentialing coordinator and podiatry in the past 1 year. Renal function is stable. Hyperlipidemia. Continue on simvastatin 40 mg daily and recheck panel before next appointment Hypothyroidism. Last TSH/T4 was within normal limits and continue on levothyroxine 125 mcg daily Generalized anxiety disorder/obsessive-c ompulsive disorder/major depression. She is stable at this [...] is noted. Advised patient on taking Ketotifen ahrp-ene-[id number] eyedrop. She can also start taking partial [...] schizoaffective disorder who was seen in the [facility] emergency room on a 05/15 24 for extreme fatigue weakness and then went to [facility] on 05/16/24 for the same complaints is here for posthospital discharge follow-up. Post discharge Hospital follow-up 7 days fatigue weakness poor appetite due to dehydration possible withdrawal from abruptly stopping Cymbalta, in increased dose of Latuda and then discontinuing Latuda completely All lab work has been unremarkable no evidence of any infection notes from [facility] has been reviewed. Discussed at length [...] schizoaffective disorder who was seen in the [facility] emergency room on a 05/15 24 for extreme fatigue weakness and then went to [facility] on 05/16/24 for the same complaints is here for posthospital discharge follow-up. Post discharge Hospital follow-up 7 days fatigue weakness poor appetite due to dehydration possible withdrawal from abruptly stopping Cymbalta, in increased dose of Latuda and then discontinuing Latuda completely All lab work has been unremarkable no evidence of any infection notes from [facility] and [facility] has been reviewed. Discussed at [...] reflux schizoaffective disorder who was admitted to [facility] for acute cholecystitis status post cholecystectomy readmitted for nausea vomiting epigastric pain and dehydration and is here today for a follow-up visit.I reviewed all the reports lab work procedure notes from [facility] discharge paperwork and discussed it [...] requesting paperwork for getting an independent/assisted living. 06/11/2024 Hospital discharge follow-up (ICD-10 - Z09) 74 years old lady With insulin-dependent DM type II, hypertension, hyperlipidemia, hypothyroidism generalized anxiety disorder, acid reflux schizoaffective disorder who was admitted to [facility] for acute cholecystitis status post cholecystectomy readmitted for nausea vomiting epigastric pain and dehydration and is here today for a follow-up visit.I reviewed all the reports lab work procedure notes from [facility] discharge paperwork and discussed it [...] requesting paperwork for getting an independent/assisted living. 06/27/2024 Schizoaffective disorder, depressive type (ICD-10 - F25.1) 74 years old lady With insulin-dependent DM type II, hypertension, hyperlipidemia, hypothyroidism generalized anxiety disorder, acid reflux schizoaffective disorder who was admitted to [facility] and was discharged on 06/25/24. Post discharge Hospital follow-up 2days days she is feeling much better, she was diagnosed with Severe hypomagnesemia, CT imaging showed duodenal stricture. Status post 2 unsuccessful attempts of duodenal dilatation. 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 She is on Protonix 40 mg daily which she will continue. Currently stable abdominal exam is unknown remarkable no nausea and vomiting she is supposed to be eating small bite size food. Hypomagnesemia she is on supplemental mag oxide 400 mg daily patient has chronic history of low magnesium due to GI losses and poor absorption history of anxiety and depression,r patient is off all medications and is in the process of getting a new psychiatrist Plan of care was discussed in detail with patient and her family was present in the room today 06/27/2024 Hospital discharge follow-up (ICD-10 - Z09) 74 years old lady With insulin-dependent DM type II, hypertension, hyperlipidemia, hypothyroidism generalized anxiety disorder, acid reflux schizoaffective disorder who was admitted to [facility] and was discharged on 06/25/24. Post discharge Hospital follow-up 2days days she is feeling much better, she was diagnosed with Severe hypomagnesemia, CT imaging showed duodenal stricture. Status post 2 unsuccessful attempts of duodenal dilatation. 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 She is on Protonix 40 mg daily which she will continue. Currently stable abdominal exam is unknown remarkable no nausea and vomiting she is supposed to be eating small bite size food. Hypomagnesemia she is on supplemental mag oxide 400 mg daily patient has chronic history of low magnesium due to GI losses and poor absorption history of anxiety and depression,r patient is off all medications and is in the process of getting a new psychiatrist Plan of care was discussed in detail with patient and her family was present in the room today 07/16/2024 Pain in unspecified shoulder (ICD-10 - M25.519) 07/17/2024 Pain in unspecified shoulder (ICD-10 - M25.519) 06/27/2024 Generalized anxiety disorder (ICD-10 - F41.1) 74 years old lady With insulin-dependent DM type II, hypertension, hyperlipidemia, hypothyroidism generalized anxiety disorder, acid reflux schizoaffective disorder who was admitted to [facility] and was discharged on 06/25/24. Post discharge Hospital follow-up 2days days she is feeling much better, she was diagnosed with Severe hypomagnesemia, CT imaging showed duodenal stricture. Status post 2 unsuccessful attempts of duodenal dilatation. 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 She is on Protonix 40 mg daily which she will continue. Currently stable abdominal exam is unknown remarkable no nausea and vomiting she is supposed to be eating small bite size food. Hypomagnesemia she is on supplemental mag oxide 400 mg daily patient has chronic history of low magnesium due to GI losses and poor absorption history of anxiety and depression,r patient is off all medications and is in the process of getting a new psychiatrist Plan of care was discussed in detail with patient and her family was present in the room today 06/11/2024 Generalized anxiety disorder (ICD-10 - F41.1) 74 years old lady With insulin-dependent DM type II, hypertension, hyperlipidemia, hypothyroidism generalized anxiety disorder, acid reflux schizoaffective disorder who was admitted to [facility] for acute cholecystitis status post cholecystectomy readmitted for nausea vomiting epigastric pain and dehydration and is here today for a follow-up visit.I reviewed all the reports lab work procedure notes from [facility] discharge paperwork and discussed it [...] requesting paperwork for getting an independent/assisted living. 05/17/2024 Generalized anxiety disorder (ICD-10 - F41.1) 74 years old lady With insulin-dependent DM type II, hypertension, hyperlipidemia, hypothyroidism generalized anxiety disorder, acid reflux schizoaffective disorder who was seen in the [facility] emergency room on a 05/15 24 for extreme fatigue weakness and then went to [facility] on 05/16/24 for the same complaints is here for posthospital discharge follow-up. Post discharge Hospital follow-up 7 days fatigue weakness poor appetite due to dehydration possible withdrawal from abruptly stopping Cymbalta, in increased dose of Latuda and then discontinuing Latuda completely All lab work has been unremarkable no evidence of any infection notes from [facility] has been reviewed. Discussed at length [...] months. Continue current regimen. She is seen medical staff credentialing coordinator and podiatry in the past 1 year. Renal function is stable. Hyperlipidemia. Continue on simvastatin 40 mg daily and recheck panel before next appointment Hypothyroidism. Last TSH/T4 was within normal limits and continue on levothyroxine 125 mcg daily Generalized anxiety disorder/obsessive-c ompulsive disorder/major depression. She is stable at this [...] months. Continue current regimen. She is seen medical staff credentialing coordinator and podiatry in the past 1 year. Renal function is stable. Hyperlipidemia. Continue on simvastatin 40 mg daily and recheck panel before next appointment Hypothyroidism. Last TSH/T4 was within normal limits and continue on levothyroxine 125 mcg daily Generalized anxiety disorder/obsessive-c ompulsive disorder/major depression. She is stable at this [...] schizoaffective disorder who was seen in the [facility] emergency room on a 05/15 24 for extreme fatigue weakness and then went to [facility] on 05/16/24 for the same complaints is here for posthospital discharge follow-up. Post discharge Hospital follow-up 7 days fatigue weakness poor appetite due to dehydration possible withdrawal from abruptly stopping Cymbalta, in increased dose of Latuda and then discontinuing Latuda completely All lab work has been unremarkable no evidence of any infection notes from [facility] and [facility] has been reviewed. Discussed at [...] reflux schizoaffective disorder who was admitted to [facility] for acute cholecystitis status post cholecystectomy readmitted for nausea vomiting epigastric pain and dehydration and is here today for a follow-up visit.I reviewed all the reports lab work procedure notes from [facility] discharge paperwork and discussed it [...] requesting paperwork for getting an independent/assisted living. 06/27/2024 Diabetes mellitus due to underlying condition with hyperglycemia (ICD-10 - E08.65) 74 years old lady With insulin-dependent DM type II, hypertension, hyperlipidemia, hypothyroidism generalized anxiety disorder, acid reflux schizoaffective disorder who was admitted to [facility] and was discharged on 06/25/24. Post discharge Hospital follow-up 2days days she is feeling much better, she was diagnosed with Severe hypomagnesemia, CT imaging showed duodenal stricture. Status post 2 unsuccessful attempts of duodenal dilatation. 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 She is on Protonix 40 mg daily which she will continue. Currently stable abdominal exam is unknown remarkable no nausea and vomiting she is supposed to be eating small bite size food. Hypomagnesemia she is on supplemental mag oxide 400 mg daily patient has chronic history of low magnesium due to GI losses and poor absorption history of anxiety and depression,r patient is off all medications and is in the process of getting a new psychiatrist Plan of care was discussed in detail with patient and her family was present in the room today 06/27/2024 Gastro-esophageal reflux disease with esophagitis, without bleeding (ICD-10 - K21.00) 74 years old lady With insulin-dependent DM type II, hypertension, hyperlipidemia, hypothyroidism generalized anxiety disorder, acid reflux schizoaffective disorder who was admitted to [facility] and was discharged on 06/25/24. Post discharge Hospital follow-up 2days days she is feeling much better, she was diagnosed with Severe hypomagnesemia, CT imaging showed duodenal stricture. Status post 2 unsuccessful attempts of duodenal dilatation. 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 She is on Protonix 40 mg daily which she will continue. Currently stable abdominal exam is unknown remarkable no nausea and vomiting she is supposed to be eating small bite size food. Hypomagnesemia she is on supplemental mag oxide 400 mg daily patient has chronic history of low magnesium due to GI losses and poor absorption history of anxiety and depression,r patient is off all medications and is in the process of getting a new psychiatrist Plan of care was discussed in detail with patient and her family was present in the room today 06/11/2024 Gastro-esophageal reflux disease with esophagitis, without bleeding (ICD-10 - K21.00) 74 years old lady With insulin-dependent DM type II, hypertension, hyperlipidemia, hypothyroidism generalized anxiety disorder, acid reflux schizoaffective disorder who was admitted to [facility] for acute cholecystitis status post cholecystectomy readmitted for nausea vomiting epigastric pain and dehydration and is here today for a follow-up visit.I reviewed all the reports lab work procedure notes from [facility] discharge paperwork and discussed it [...] requesting paperwork for getting an independent/assisted living. 12/13/2023 Hypothyroidism, unspecified (ICD-10 - E03.9) [...] months. Continue current regimen. She is seen medical staff credentialing coordinator and podiatry in the past 1 year. Renal function is stable. Hyperlipidemia. Continue on simvastatin 40 mg daily and recheck panel before next appointment Hypothyroidism. Last TSH/T4 was within normal limits and continue on levothyroxine 125 mcg daily Generalized anxiety disorder/obsessive-c ompulsive disorder/major depression. She is stable at this [...] months. Continue current regimen. She is seen medical staff credentialing coordinator and podiatry in the past 1 year. Renal function is stable. Hyperlipidemia. Continue on simvastatin 40 mg daily and recheck panel before next appointment Hypothyroidism. Last TSH/T4 was within normal limits and continue on levothyroxine 125 mcg daily Generalized anxiety disorder/obsessive-c ompulsive disorder/major depression. 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 Post discharge Hospital follow-up 2days days she is feeling much better, she was diagnosed with Severe hypomagnesemia, CT imaging showed duodenal stricture. Status post 2 unsuccessful attempts of duodenal dilatation. 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 She is on Protonix 40 mg daily which she will continue. Currently stable abdominal exam is unknown remarkable no nausea and vomiting she is supposed to be eating small bite size food. Hypomagnesemia she is on supplemental mag oxide 400 mg daily patient has chronic history of low magnesium due to GI losses and poor absorption history of anxiety and depression,r patient is off all medications and is in the process of getting a new psychiatrist Plan of care was discussed in detail with patient and her family was present in the room today 12/13/2023 Chronic kidney disease, unspecified (ICD-10 - [...] months. Continue current regimen. She is seen medical staff credentialing coordinator and podiatry in the past 1 year. Renal function is stable. Hyperlipidemia. Continue on simvastatin 40 mg daily and recheck panel before next appointment Hypothyroidism. Last TSH/T4 was within normal limits and continue on levothyroxine 125 mcg daily Generalized anxiety disorder/obsessive-c ompulsive disorder/major depression. She is stable at this [...] Future Test Test Name Order Date Hemoglobin [id number] 12/13/2023 Albumin/Creatinine Ratio,Urine-[id number] Lipid Panel-[id number] 12/13/2023 Comp. Metabolic Panel [id number] 2023 TSH+Free T4 12/13/2023 Insurance Providers Payer Name Payer Address Payer Phone Subscriber Number Group Number Insured Name Patient Relationship to Insured Coverage Start Date Coverage End Date Medicare [address] [place] [address] [id number] Lizzette Steiner Self - patient is the insured [employer] (Novel) [address] [place] [address] [phone] [id number] Lizzette Steiner Self - patient is the insured Medical (General) History Medical History History ICD Code CATIE/MDD see Dr Le Psy OCD Hyperlipidemia 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
[2024-07-30 13:34] VITALS: BMI 27.5
--- NOTE | 2024-07-31 09:54 | HO.ANESPROP2 ---
Documented by User: Salome Franco NP 07/31/24 09:57 HPI - Anesthesia Eval Consult details Narrative: 74yo F for Upper Endoscopy with Dilitation s/p same 07/03/24 with TIVA PMFSH Active Problems Active Problems: All Active Problems Gastritis (Acute) S/P laparoscopic cholecystectomy (Acute) Cervical spinal stenosis (Acute) Osteoarthritis of shoulders, bilateral (Acute) Knee osteoarthritis (Acute) Overdose (Acute) Post-menopausal (Acute) Diabetic neuropathy (Acute) Hepatic steatosis (Acute) Renal cyst (Acute) Renal stone (Acute) Hypothyroidism (Acute) Obesity (BMI 30-39.9) (Acute) Elevated LFTs (Acute) Internal hemorrhoid (Acute) External hemorrhoid (Acute) Bilateral edema of lower extremity (Acute) Fibromyalgia (Acute) Compulsive scratching behavior (Acute) Physical exam (Acute) Uncontrolled diabetes mellitus (Acute) Change in hearing (Acute) Type II diabetes mellitus (Acute) Urinary incontinence (Acute) Schizoaffective disorder (Acute) Confusion (Acute) Vitamin D deficiency (Acute) HTN (hypertension) (Acute) HLD (hyperlipidemia) (Acute) Urinary urgency (Acute) OCD (obsessive compulsive disorder) (Acute) Depression (Acute) Arthralgia of shoulder region, left (Acute) Cervical spondylitis with radiculitis (Acute) Myofascial pain on left side (Acute) Past Medical History Medical History (Updated 07/30/24 @ 13:20 by Jennifer Rogers RN) Duodenal stricture Duodenitis Bilateral cataracts Schizoaffective disorder Confusion Skin rash Vitamin D deficiency HTN (hypertension) HLD (hyperlipidemia) Cellulitis of leg, left Urinary urgency Arthralgia of shoulder region, left Cervical spondylitis with radiculitis Myofascial pain on left side Depression OCD (obsessive compulsive disorder) DJD (degenerative joint disease) SI (sacroiliac) joint dysfunction Fibromyalgia GERD (gastroesophageal reflux disease) Neuropathy Diabetes Family History Family History Father No problems noted. Mother No problems noted. Family history of problems with anesthesia: No Surgical History Surgical History (Updated 07/30/24 @ 13:19 by Jennifer Rogers RN) History of esophagogastroduodenoscopy (EGD) History of laparoscopic cholecystectomy (~05/24/24) H/O mastectomy Hx of appendectomy H/O exploratory laparotomy History of surgery History of Problems with Anesthesia: No Social History Social History Household Members: Spouse Household Members Other:: 1 Housing: House Are you a primary acute care certified nursing assistant to a significant other at home: No Do you presently have visiting nurse or other home services: Yes ([facility]) Alcohol intake: former Comment: uses cane and walker at home Patient Tobacco Use Status: Never used Tobacco Tobacco use type: Cigarette e-Cigarette/Vaping Use: Never Used Second Hand Smoke Exposure: No Use of substances other than those prescribed or required for medical reasons: No Have you been hit, kicked, punched, or otherwise hurt by someone within the past year? If so, by whom?: No Spiritual Healthcare Practices: no Presybeterian Healthcare Practices: no-Protestant Cultural Healthcare Practices: no Are you DNR?: No Advance Directives: Yes Advance Directives Information Provided: Yes Advance Directives on File: Yes Advance Directives Date on File: 06/01/24 FDLMP: n/a Poor oral hygiene: No service: No Current occupational status: retired Cognitive needs: Yes (cane) Hearing needs: Yes (hearing aide) Vision needs: Yes (glasses) Meds Allergies Allergy/AdvReac Type Severity Reaction Status Date / Time insulin detemir Allergy Severe Itching Verified 07/29/24 10:28 [From Levemir U-100 Insulin] adhesive tape Allergy Intermediate Rash from Verified 07/29/24 10:28 medical tape, tegaderm, etc. bupropion [From Wellbutrin] Allergy Intermediate Rash Verified 07/29/24 10:28 codeine [Codeine] Allergy Intermediate Nausea and Verified 07/29/24 10:28 Vomiting escitalopram Allergy Intermediate lethargy Verified 07/29/24 10:28 NSAIDS (Non-Steroidal Allergy Intermediate Swelling Verified 07/29/24 10:28 Anti-Inflamma oxycodone [From OxyContin] Allergy Intermediate Itching Verified 07/29/24 10:28 pregabalin Allergy Intermediate Confusion Verified 07/29/24 10:28 rosuvastatin [Crestor] AdvReac Intermediate joint pain Verified 07/29/24 10:28 Home Medications ?Medication ?Instructions ?Recorded ?Confirmed ?Last Taken ?Type aspirin 81 mg tablet,delayed 81 mg PO BEDTIME 01/01/21 07/30/24 06/13/24 History release (Adult Aspirin Regimen) biotin 1 mg capsule 1 mg PO DAILY 05/17/21 08/01/24 2 Weeks Ago History ~06/08/24 blood sugar diagnostic (OneTouch #10 ea 05/27/21 06/20/24 Unknown History Ultra Test strips) levocetirizine 5 mg tablet (Xyzal) 5 mg PO BID Allergy Symptoms 09/09/21 08/01/24 2 Weeks Ago History ~06/08/24 hydroxyzine pamoate 25 mg capsule 25 mg PO BID PRN Itching 05/23/24 08/01/24 Unknown History insulin glargine 100 unit/mL (3 46 unit subcut DAILY 06/01/24 08/01/24 08/01/24 06:50 History mL) subcutaneous pen (Basaglar 23 units KwikPen U-100 Insulin) ipratropium bromide 42 mcg (0.06 2 spray intranasal QID PRN Allergy 06/01/24 08/01/24 Unknown History %) nasal spray Symptoms furosemide 20 mg tablet 20 mg PO DAILY PRN leg swelling 06/22/24 08/01/24 Unknown History lorazepam 0.5 mg tablet 0.5 mg PO BEDTIME PRN anxiety 06/22/24 08/01/24 Unknown History vitamin B complex 1 cap PO DAILY 06/22/24 08/01/24 2 Weeks Ago History ~06/08/24 Exam Pertinent Lab Results Pertinent Lab Results: Laboratory Tests 06/22/24 05:25 WBC 7.8 Hgb 12.5 Hct 36.8 L Plt Count 437 H Sodium 139 Potassium 3.4 Chloride 104 Carbon Dioxide 22 BUN 6 L Creatinine 0.62 Narrative Narrative: EKG 06/2024 Vent. Rate : 70 BPM Atrial Rate : 70 BPM P-R Int : 128 ms QRS Dur : 72 ms QT Int : 426 ms P-R-T Axes : 52 -14 16 degrees QTcB Int : 460 ms Normal sinus rhythm Minimal voltage criteria for LVH, may be normal variant ( R in aVL ) Borderline ECG When compared with ECG of 01-Jun-2024 14:20, No significant change was found Assessment and Plan Assessment Anesthesia Assessment: Chart Reviewed Final Anesthetic Review Family History of Problems with Anesthesia: No History of Problems with Anesthesia: No Documented by User: Tran Garcia MD 08/01/24 09:16 PMFSH Past Medical History Medical History (Updated 07/30/24 @ 13:20 by Jennifer Rogers RN) Duodenal stricture Duodenitis Bilateral cataracts Schizoaffective disorder Confusion Skin rash Vitamin D deficiency HTN (hypertension) HLD (hyperlipidemia) Cellulitis of leg, left Urinary urgency Arthralgia of shoulder region, left Cervical spondylitis with radiculitis Myofascial pain on left side Depression OCD (obsessive compulsive disorder) DJD (degenerative joint disease) SI (sacroiliac) joint dysfunction Fibromyalgia GERD (gastroesophageal reflux disease) Neuropathy Diabetes Family History Family History Father No problems noted. Mother No problems noted. Surgical History Surgical History (Updated 07/30/24 @ 13:19 by Jennifer Rogers RN) History of esophagogastroduodenoscopy (EGD) History of laparoscopic cholecystectomy (~05/24/24) H/O mastectomy Hx of appendectomy H/O exploratory laparotomy History of surgery Social History Social History Household Members: Spouse Household Members Other:: 1 Housing: House Are you a primary acute care certified nursing assistant to a significant other at home: No Do you presently have visiting nurse or other home services: Yes ([facility]) Alcohol intake: former Comment: uses cane and walker at home Patient Tobacco Use Status: Never used Tobacco Tobacco use type: Cigarette e-Cigarette/Vaping Use: Never Used Second Hand Smoke Exposure: No Use of substances other than those prescribed or required for medical reasons: No Have you been hit, kicked, punched, or otherwise hurt by someone within the past year? If so, by whom?: No Spiritual Healthcare Practices: no Presybeterian Healthcare Practices: no-Protestant Cultural Healthcare Practices: no Are you DNR?: No Advance Directives: Yes Advance Directives Information Provided: Yes Advance Directives on File: Yes Advance Directives Date on File: 06/01/24 FDLMP: n/a Poor oral hygiene: No service: No Current occupational status: retired Cognitive needs: Yes (cane) Hearing needs: Yes (hearing aide) Vision needs: Yes (glasses) Meds Allergies Allergy/AdvReac Type Severity Reaction Status Date / Time insulin detemir Allergy Severe Itching Verified 07/29/24 10:28 [From Levemir U-100 Insulin] adhesive tape Allergy Intermediate Rash from Verified 07/29/24 10:28 medical tape, tegaderm, etc. bupropion [From Wellbutrin] Allergy Intermediate Rash Verified 07/29/24 10:28 codeine [Codeine] Allergy Intermediate Nausea and Verified 07/29/24 10:28 Vomiting escitalopram Allergy Intermediate lethargy Verified 07/29/24 10:28 NSAIDS (Non-Steroidal Allergy Intermediate Swelling Verified 07/29/24 10:28 Anti-Inflamma oxycodone [From OxyContin] Allergy Intermediate Itching Verified 07/29/24 10:28 pregabalin Allergy Intermediate Confusion Verified 07/29/24 10:28 rosuvastatin [Crestor] AdvReac Intermediate joint pain Verified 07/29/24 10:28 Home Medications ?Medication ?Instructions ?Recorded ?Confirmed ?Last Taken ?Type aspirin 81 mg tablet,delayed 81 mg PO BEDTIME 01/01/21 07/30/24 06/13/24 History release (Adult Aspirin Regimen) biotin 1 mg capsule 1 mg PO DAILY 05/17/21 08/01/24 2 Weeks Ago History ~06/08/24 blood sugar diagnostic (OneTouch #10 ea 05/27/21 06/20/24 Unknown History Ultra Test strips) levocetirizine 5 mg tablet (Xyzal) 5 mg PO BID Allergy Symptoms 09/09/21 08/01/24 2 Weeks Ago History ~06/08/24 hydroxyzine pamoate 25 mg capsule 25 mg PO BID PRN Itching 05/23/24 08/01/24 Unknown History insulin glargine 100 unit/mL (3 46 unit subcut DAILY 06/01/24 08/01/24 08/01/24 06:50 History mL) subcutaneous pen (Basaglar 23 units KwikPen U-100 Insulin) ipratropium bromide 42 mcg (0.06 2 spray intranasal QID PRN Allergy 06/01/24 08/01/24 Unknown History %) nasal spray Symptoms furosemide 20 mg tablet 20 mg PO DAILY PRN leg swelling 06/22/24 08/01/24 Unknown History lorazepam 0.5 mg tablet 0.5 mg PO BEDTIME PRN anxiety 06/22/24 08/01/24 Unknown History vitamin B complex 1 cap PO DAILY 06/22/24 08/01/24 2 Weeks Ago History ~06/08/24 Exam Airway Mallampati Class: III TM Dist: >3cm Neck ROM: Full Loose/Missing/Broken Teeth: No Heart: RRR Lungs: CTA Assessment and Plan Assessment Anesthesia Assessment: Anesthesia Plan Discussed Final Anesthetic Review NPO: Yes ASA Class: III Final Preanesthetic Review: Meds/Allgs Chart Reviewed, Consent Obtained/Reviewed and Anes Risks/Benef Reviewed Patient Risk: Intermediate Procedure Risk: Intermediate Anesthetic Plan Anesthetic Plan: MAC: Disposition: Standard PACU
[2024-08-01 08:22] VITALS: BP 153/68; PULSE 88; RESP 22; TEMP 36.5; O2SAT 97
[2024-08-01 08:47] VITALS: BMI 30.8
[2024-08-01] MEDS: Lactated Ringers 1,000 ML 100 ML IVCONT (08:49)
[2024-08-01 08:56] LABS: Glucose, Whole Blood 108 mg/dL (60-115)
--- NOTE | 2024-08-01 08:58 | P.HPSUR_ITS ---
Pre-Procedural Eval Section A - 24 Hr Update-Section A only Date of Service: 08/01/24 Section B - Complete if H&P > 30 days Chief Complaint: Obstruction of duodenum Relevant Family History (Specify if Yes): No Relevant Social History: None Present Medications: see Short Stay Collaborative assessment Medical History: Significant History (Duodenal stricture Duodenitis Bilateral cataracts Schizoaffective disorder Confusion Skin rash Vitamin D deficiency HTN (hypertension) HLD (hyperlipidemia) Cellulitis of leg, left Urinary urgency Arthralgia of shoulder region, left Cervical spondylitis with radiculitis Myofascial pain on left side D) History of Previous Operations: Relevant previous surgery/procedure and date(s) (History of esophagogastroduodenoscopy (EGD) History of laparoscopic cholecystectomy (~05/24/24) H/O mastectomy Hx of appendectomy H/O exploratory laparotomy History of surgery) Allergies: Allergies Allergy/AdvReac Type Severity Reaction Status Date / Time insulin detemir Allergy Severe Itching Verified 07/29/24 10:28 [From Levemir U-100 Insulin] adhesive tape Allergy Intermediate Rash from Verified 07/29/24 10:28 medical tape, tegaderm, etc. bupropion [From Wellbutrin] Allergy Intermediate Rash Verified 07/29/24 10:28 codeine [Codeine] Allergy Intermediate Nausea and Verified 07/29/24 10:28 Vomiting escitalopram Allergy Intermediate lethargy Verified 07/29/24 10:28 NSAIDS (Non-Steroidal Allergy Intermediate Swelling Verified 07/29/24 10:28 Anti-Inflamma oxycodone [From OxyContin] Allergy Intermediate Itching Verified 07/29/24 10:28 pregabalin Allergy Intermediate Confusion Verified 07/29/24 10:28 rosuvastatin [Crestor] AdvReac Intermediate joint pain Verified 07/29/24 10:28 Review of Systems Sugical H&P ROS: Negative: Constitution, Cardiovascular, Respiratory, Ne urological, Psychiatric, Hem-Onc, Allergic/Immunologic, Gastrointestinal, Genitourinary, Musculoskeletal, Integumentary, Endocrine and Eyes/Ears/Nose/Throat Exam Surgical H&P Exam: Normal: HEENT, Normal: Heart, Normal: Lungs, Normal: Extremities, Normal: Abdomen, Normal: Skin and Normal: Neurological Plan Diagnosis/Plan: Unchanged I have reviewed the history and physical and performed a pertinent physical examination on my patient. No changes have occurred unless specified. Time Spent With Patient Time: Total time managing care of this patient today ____ minutes.
--- NOTE | 2024-08-01 09:22 | W.PM.OPN ---
Operative Note Operative Note Date of Service: 08/01/24 Narrative: Procedure Description: EGD Indication: duodenal stricture Anesthesia: MAC FLEXIBLE TRANSORAL UPPER GASTROINTESTINAL ENDOSCOPY UPPER ENDOSCOPY Consent: Indications for the procedure and potential complications of bleeding, perforation, reaction to medications and missed diagnosis were discussed with the patient and informed consent was obtained. Instrument: Olympus GIF H 190 J mid size upper endoscope Monitoring: Vital signs and clinical assessment, continuous EKG monitoring, Pulse oximetry, Carbon Dioxide monitoring and blood pressure monitoring were done throughout the procedure. Procedure: The patient was placed in the left lateral decubitis position and pre-procedure medications were administered and a bite block was placed. The endoscope was inserted into the mouth and advanced under direct vision to the third part of duodenum. A careful inspection was made as the upper endoscope was withdrawn including a retroflexed examination of the proximal stomach; Findings and interventions are described below. Findings: Larynx:normal Esophagus: GE junction at 33 cm, diaphragm hiatus at 35 cm, schatzki ring noted with small hiatal hernia Stomach: patchy erythema with nodularity. Grade 2 flap valve on retroflexed examination of the cardia. Duodenum: duodenal stricture just at the sweep, scope couldnt be passed, a wire was passed and then the stricture was dilated to 14 mm with heme noted. Scope was then passed and mucosa distal to this looked normal. bx were taken from the stricture due to its villiform appearance Intervention: Biopsies as noted above, wire guided balloon dilation, Impression/Findings: gastritis schatzki ring with hiatal hernia duodenal stricture PLAN: cont with PPI discuss with patient about surgical referral given ongoing stricture and to also r/o any other concerning path, the last bx was neg
[2024-08-01 09:27] VITALS: BP 113/59; PULSE 78; RESP 18; TEMP 36.3; O2SAT 100
[2024-08-01 09:40] VITALS: BP 128/66; PULSE 73; RESP 18; O2SAT 100
[2024-08-01 09:55] VITALS: BP 129/63; PULSE 78; RESP 16; TEMP 36.1; O2SAT 96
== END 2024-08-01 10:22 | disposition home or self-care (01) ==
PROVIDERS: PCP Hospitalist; Visit Provider Internal Medicine Gastroenterology
PROC: (CPT 43248; principal; 2024-08-01 10:20)
DX: K31.5 Obstruction of duodenum (principal); K22.2 Esophageal obstruction; K29.70 Gastritis, unspecified, without bleeding; K20.80 Other esophagitis without bleeding; K44.9 Diaphragmatic hernia without obstruction or gangrene; E11.9 Type 2 diabetes mellitus without complications; I10 Essential (primary) hypertension; E78.5 Hyperlipidemia, unspecified; E55.9 Vitamin D deficiency, unspecified; F25.9 Schizoaffective disorder, unspecified; Z90.49 Acquired absence of other specified parts of digestive tract; Z79.82 Long term (current) use of aspirin; Z79.01 Long term (current) use of anticoagulants; Z79.4 Long term (current) use of insulin; Z79.899 Other long term (current) drug therapy
CPT/HCPCS: 43248; 43239; 82947; 88305; 88313; C1726; J2003; J2704; J3301

== ENCOUNTER → 2024-08-01 07:53 | Outpatient (BNV) | payer MEDICARE, OTHER, SELFPAY | PROVIDERS: PCP Hospitalist; Visit Provider Internal Medicine Gastroenterology | DX: K31.5 Obstruction of duodenum (principal); K29.70 Gastritis, unspecified, without bleeding; K22.2 Esophageal obstruction | CPT/HCPCS: 43239; 43249 ==

== ENCOUNTER 2024-08-07 08:47 | Outpatient (AMB) | payer MEDICARE, OTHER, SELFPAY ==
[2024-08-07 08:54] VITALS: BP 136/60; PULSE 78; RESP 16; O2SAT 97; BMI 30.7
--- NOTE | 2024-08-07 08:54 | MHC.OFFVIS ---
Vital Signs 08/07/24 08:54 Height 5 ft 2 in Weight 168 lb BMI 30.7 BP 136/60 Blood Pressure Location Lt brachial Position Sitting Respiration 16 Pulse 78 Pulse Source Pulse Oximeter Pulse Oximetry (%) 97 Oxygen Delivery Method Room Air Intake Visit Reasons: opioid contract Passenger Service Representative Required: No Allergies insulin detemir [From Levemir U-100 Insulin] Allergy (Severe, Verified 08/07/24 08:55) Itching adhesive tape Allergy (Intermediate, Verified 08/07/24 08:55) Rash from medical tape, tegaderm, etc. bupropion [From Wellbutrin] Allergy (Intermediate, Verified 08/07/24 08:55) Rash codeine [Codeine] Allergy (Intermediate, Verified 08/07/24 08:55) Nausea and Vomiting escitalopram Allergy (Intermediate, Verified 08/07/24 08:55) lethargy NSAIDS (Non-Steroidal Anti-Inflamma Allergy (Intermediate, Verified 08/07/24 08:55) Swelling oxycodone [From OxyContin] Allergy (Intermediate, Verified 08/07/24 08:55) Itching pregabalin Allergy (Intermediate, Verified 08/07/24 08:55) Confusion rosuvastatin [Crestor] Adverse Reaction (Intermediate, Verified 08/07/24 08:55) joint pain Medication List - Last Reconciled 08/07/24 by Aliyah Lopez LPN acetaminophen 650 mg (2 x 325 mg) PO Q6H PRN aspirin (Adult Aspirin Regimen) 81 mg PO BEDTIME biotin 1 mg PO DAILY blood sugar diagnostic (OneTouch Ultra Test strips) check BS 2-3x/day blood sugar diagnostic (OneTouch Ultra Test strips) As directed furosemide 20 mg PO DAILY PRN gabapentin 400 mg PO TID 30 days hydroxyzine pamoate 25 mg PO BID PRN insulin glargine (Basaglar KwikPen U-100 Insulin) 46 units subcut DAILY ipratropium bromide 2 sprays intranasal QID PRN levocetirizine (Xyzal) 5 mg PO BID levothyroxine 125 mcg PO DAILY@0630 lorazepam 0.5 mg PO BEDTIME PRN magnesium oxide 400 mg PO DAILY pantoprazole (Protonix) 40 mg PO DAILY@0630 pyridoxine (vitamin B6) 100 mg PO DAILY 90 days simvastatin 40 mg PO BEDTIME vitamin B complex 1 cap PO DAILY HPI HPI opioid contract: Details: History of Present Illness The patient is a 74-year-old female presenting with chronic neck pain. Her condition has been ongoing and progressively worsening, with neck pain and shoulder discomfort persisting despite previous interventions such as trigger point injections and physical therapy. The pain remains severe enough to limit her cervical range of motion substantially. Acetaminophen and non-steroidal anti-inflammatory drugs provide inadequate relief due to concurrent gastrointestinal issues, further complicating management. Attempts to manage the pain with cortisone injections in other areas of the body were unsuccessful; notably, she has not received these injections in the cervical region. She expresses a desire for consultation with neurosurgery, specifically planning to see Dr. Karan Prater for further management, including potential surgical options. Her capability to remain active is hindered, leading to muscle atrophy and affecting her ability to use assistive devices effectively. Pain Description - Onset: Gradual, over an extended period. - Quality: Persistent, resistant to physical therapy and typical analgesics. - Location: Primarily cervical with shoulder involvement. - Radiation: Chronic cervical radicular pain noted. - Exacerbating Factors: Limited activity due to significant muscular atrophy and pain. - Relieving Factors: Previous attempts at pain relief with trigger point injections were unsuccessful; history of ineffective cortisone injections, but plan to try cervical region next. - Interference: Affects daily activities, leading to dependency on assistive devices and limits active mobility. Physical Exam - Musculoskeletal- Significant limitation in cervical range of motion. Results - High risk on opioid assessment questionnaire Pain Management - Affect: Pain significantly impacts daily functions and causes distress. - Analgesia: Intolerant to NSAIDs; limited relief from acetaminophen. - Adverse Effects: Gastrointestinal issues preclude NSAID use. - Activities of Daily Living: Pain restricts mobility, contributing to muscle atrophy and dependence on assistive devices. - Aberrant Drug Related Behaviors: None reported. [facility] Medical History (Updated 07/30/24 @ 13:20 by Jennifer Rogers RN) Duodenal stricture Duodenitis Bilateral cataracts Schizoaffective disorder Confusion Skin rash Vitamin D deficiency HTN (hypertension) HLD (hyperlipidemia) Cellulitis of leg, left Urinary urgency Arthralgia of shoulder region, left Cervical spondylitis with radiculitis Myofascial pain on left side Depression OCD (obsessive compulsive disorder) DJD (degenerative joint disease) SI (sacroiliac) joint dysfunction Fibromyalgia GERD (gastroesophageal reflux disease) Neuropathy Diabetes Surgical History (Updated 07/30/24 @ 13:19 by Jennifer Rogers RN) History of esophagogastroduodenoscopy (EGD) History of laparoscopic cholecystectomy (~05/24/24) H/O mastectomy Hx of appendectomy H/O exploratory laparotomy History of surgery Family History Father No problems noted. Mother No problems noted. Social History Household Members: Spouse Household Members Other:: 1 Housing: House Are you a primary nurse wound care to a significant other at home: No Do you presently have visiting nurse or other home services: Yes ([facility]) Alcohol intake: former Comment: uses cane and walker at home Patient Tobacco Use Status: Never used Tobacco Tobacco use type: Cigarette e-Cigarette/Vaping Use: Never Used Second Hand Smoke Exposure: No Advance Directives Date on File: 06/01/24 service: No Current occupational status: retired Cognitive needs: Yes (cane) Hearing needs: Yes (hearing aide) Vision needs: Yes (glasses) Physical Exam Vital Signs: Last Vital Signs Pulse 78 08/07/24 08:54 Resp 16 08/07/24 08:54 BP 136/60 08/07/24 08:54 Pulse Ox 97 08/07/24 08:54 Oxygen Delivery Method Room Air 08/07/24 08:54 BMI result Body Mass Index 30.7 Assessment & Plan Assessment & Plan (1) Cervical spondylitis with radiculitis: Code(s): M46.92 - Unspecified inflammatory spondylopathy, cervical region; M54.12 - Radiculopathy, cervical region Category: Medical Plan Plan - Schedule C6-7 interlaminar epidural steroid injection for the cervical radicular pain not responsive to physical therapy, acupuncture, oral medications. She is not a candidate for NSAIDs due to her GI issues and not a candidate for opioids due to high-risk for opioid adverse events. - Proceed with neurosurgical consultation with Dr. Karan Louis per patient preference for surgical decompression. - Refrain from opioid therapy due to high-risk profile. - Seek insurance approval for the neck injection. - Promote increased physical activity to prevent muscle atrophy and enhance quality of life. Patient was informed and verbally consented to the use of an ambient scribe for clinic note documentation during this visit. Discussion Notes During the consultation, I emphasized the necessity of addressing the patient's chronic cervical radicular pain and explained the benefits and limitations of pursuing an epidural steroid injection in the cervical area. I discussed the importance of obtaining insurance authorization promptly and the potential role of surgical intervention, with consultation to be arranged with Dr. Karan Prater. I also reiterated the decision against opioid therapy due to the patient's high-risk assessment and historical complications, stressing careful management of her current pain and future interventional considerations. The discussion included potential improvements in pain management and lifestyle with proper intervention while minimizing risks. Patient Instructions - Schedule the cervical epidural steroid injection as planned. - Make an appointment with Dr. Karan Prater for further evaluation. - Avoid use of NSAIDs due to gastrointestinal issues. - Engage in light physical activities to help maintain muscle mass. - Follow up with pain management progress and any concerns. Coding Level of Care Code Est Pt Level 3 (40110) Diagnoses Cervical spondylitis with radiculitis M46.92; M54.12
--- OUTSIDE RECORDS SUMMARY | 2024-08-07 09:08 | XMS_ITS ---
Demographics Address [address] [place] [address] Email Address Preferred Language en Marital Status Latter Day Affiliation Unknown Race White Ethnic Group Not or Lati no Author Organization [facility] Address [address] [place] [address] Support Name Relationship Address Phone Rigo Jin Emergency Contact [address] [place], [place] [id number] Lizzette Mosquera Guarantor Unknown [phone] Care Team Providers Care Care Connector Name Role Phone Noah Ortega Primary Care Provider Cedric Rueda Unavailable [phone] Allergies Allergen (clinical drug ingredient) Drug/Non Drug [...] Problem Status W/U Status Risk Notes Problem Type 2 diabetes mellitus with diabetic polyneuropathy (E11.42) Active confirmed Vital Signs Height 5 ft 1 in in 06/07/2023 Weight 155 lbs 06/07/2023 BMI 29.28 kg/m2 06/07/2023 Encounters Encounter Location Date Provider Diagnosis [facility] [address] [place] [address] 06/07/2023 Cedric Sosa Type 2 diabetes mellitus [...] as necessary. Patient chooses, no pharmaceutical tx (86905) Progress Notes * Lizzette MOSQUERA LDOB:1950 (73 yo F)Acc No.[id number]:06/07/2023 Progress Notes Patient:?Lizzette Mosquera Provider:?Cedric Sosa DPM :1950???Age:73 Y???Sex:Female D ate:06/07/2023 Address:[address] [id number] Pcp:Noah Ortega Subjective: * Chief Complaints: * [...] dayTaking Biotin Taking Vitamin D3 50 MCG (1999) Tablet 1 tablet Orally Once a dayTaking [...] as necessary. Patient chooses, no pharmaceutical tx (83070).? * Procedure Codes:?44795 DEBRI DE NAIL, 6 OR MORE, Modifiers: [...] Sosa DPM Date:? 024 Generated for Royer cruz/Charis/eTransmitting on:?08/07/2024 09:08 AM EDT History and Physical Notes * HPI [...]
--- OUTSIDE RECORDS SUMMARY | 2024-08-07 09:09 | XMS_ITS | Patient Health Record ---
Demographics Address [address] [place] [address] Email Address Preferred Language en Marital Status Jainism Affiliation Unknown Race White Ethnic Group Not or Lati no Author Organization [facility] Address [address] [facility] [place] [address] Support Name Relationship Address Phone Rigo Jin Emergency Contact [address] [place] [address] Lizzette Steiner Guarantor Unknown Care Team Providers Care Processing Talc And Borate Supervisor Name Role Phone Tyrone Ortegad Primary Care Provider Cedric Rueda Unavailable [phone] Allergies Allergen (clinical drug ingredient) Drug/Non Drug [...] Status Risk Notes Problem Contusion of foot (28261059) Contusion of foot (924.20) Active confirmed Problem Edema (82086825) Edema (782.3) Active confirmed Problem Diabetic - NIDDM/Neuropathy (250.60) Active confirmed Problem Polyneuropathy due to type 2 diabetes mellitus (018950669) Type 2 diabetes mellitus with diabetic polyneuropathy (E11.42) Active confirmed Plan Of Treatment Pending Test Test Name Order Date X ray : Foot, left 3V 02/23/2011 Insurance Providers Payer Name Payer Address Payer Phone Subscriber Number Group Number Insured Name Patient Relationship to Insured Coverage Start Date Coverage End Date Medicare National Govt Sv[employer] Inc [address] [place] [address] [id number] Lizzette Steiner Self - patient is the insured [facility] [place] [address] [place] [address] [phone] [id number] Rigo Steiner Spouse - patient is the spouse of the insured Medical (General) History Medical History History ICD Code breast cancer chicken pox thyroid disorder measles diabetic depression Anxiety Arthritis asthma Back,Hip,and Knee pain Cataracts Depression Fibromyalgia Numbness Psychiatric disorder Hearing loss Surgical History Surgery Date(Month/Year) right mastectomy Left shoulder 3 Spurs
--- OUTSIDE RECORDS SUMMARY | 2024-08-07 09:09 | XMS_ITS ---
Demographics Address [address] [place], [place] Mobile Email Address Preferred Language en Marital Status Unknown Yazdanism Affiliation Unknown Race White Ethnic Group Unknown Author Organization [facility] Address [address] [facility] [address] [place] [address] Care Team Providers Care Tiler Name Role Phone CARYN CALABRESE Primary Care Provider Herson Franco Unavailable [phone] REASON FOR VISIT Alternative Med to Tramadol Encounters Encounter Location Date Provider Diagnosis [facility] [address] [facility] [address] [place] [address] 07/18/2024 Herson Franco Plan Of Treatment No Information Progress Notes * Alvaro MOSQUERAB:[birth year] (74 yo F)Acc No.[id number]:07/18/2024 Patient:?Pete MOSQUERAa :1950???Age:74 Y???Sex:Female Address:[address] [facility] [place], [place] * true * Date:? Generated for Royer cruz/Charis/eTransmitting on:?08/07/2024 09:09 AM EDT
--- OUTSIDE RECORDS SUMMARY | 2024-08-07 09:10 | XMS_ITS ---
Demographics Address [address] [place] [address] Email Address Preferred Language en Marital Status Sikhism Affiliation Unknown Race White Ethnic Group Not or Lati no Author Organization [facility] Address [address] [place] [address] Support Name Relationship Address Phone Rigo Jin Emergency Contact [address] [place], [place] [id number] Lizzette Mosquera Guarantor Unknown Care Team Providers Care Shoeblack Name Role Phone Noah Ortega Primary Care Provider Cedric Rueda [phone] REASON FOR VISIT GAS CONTROLLER PPWK Entered Encounters Encounter Location Date Provider Diagnosis [facility] [address] [place] [address] 04/21/2023 Cedric Sosa Plan Of Treatment No Information Progress Notes * Lizzette MOSQUERA LDOB:1950 (72 yo F)Acc No.[id number]:04/21/2023 Patient:?Obdulia Lizzette Ford :1950???Age:72 Y???Sex:Female Address:[address] [place] [address] * true * Date:? Generated for Ruthi nancy/Charis/eTransmitting on:?08/07/2024 09:09 AM EDT
--- OUTSIDE RECORDS SUMMARY | 2024-08-07 09:10 | XMS_ITS ---
Demographics Address [address] [place], [place] Mobile Email Address Preferred Language en Marital Status Unknown Christianity Affiliation Unknown Race White Ethnic Group Unknown Author Organization [facility] Address [address] [facility] [address] [place] [address] Care Team Providers Care Sand Mixer Operator Name Role Phone CARYN CALABRESE Primary Care Provider Clintloum, Benedictoadeer Unavailable [phone] REASON FOR VISIT Call Back Req to Discuss Tramadol Encounters Encounter Location Date Provider Diagnosis [facility] [address] [facility] [address] [place] [address] 07/19/2024 Ghadeer Mazloum Pain in left shoulde r M25.512 and Pain in unspecified shoulder M25.519 Assessments Encounter Date Diagnosis (ICD Code) Assessment Notes Treatment Notes Treatment Clinical Notes Section Notes 07/19/2024 Pain in left shoulder (ICD-10 - M25.512) 07/19/2024 Pain in unspecified shoulder (ICD-10 - M25.519) Plan Of Treatment Medication Medication Name Sig Start Date Stop Date Notes traMADol HCl 25 MG as directed Orally once a day Progress Notes * Alvaro MOSQUERAB:[birth year] (74 yo F)Acc No.[id number]:07/19/2024 Patient:?EVELINESheaLizzette :1950???Age:74 Y???Sex:Female Address:[address] [place], [place] * Refills? Stop traMADol HCl Tablet, 25 MG, Orally, as directed, once a day Subjective: * Chief Complaints: * ???Call Back Req to Discuss Tramadol * Medical History:? * Surgical History:? * Hospitalization/Major Diagno stic Procedure:? * Medications:? Objective: * Vitals:? * Physical Examination:? Assessment: * Assessment: 1.?Pain in left shoulder - M 25.512 (Primary)???2.?Pain in unspecified shoulder - M25.519??? Plan: * Treatment: * Procedure Codes:? * * Date:?
--- OUTSIDE RECORDS SUMMARY | 2024-08-07 09:10 | XMS_ITS ---
Demographics Address [address] [place], [place] Mobile Email Address Preferred Language en Marital Status Unknown Jewish Affiliation Unknown Race White Ethnic Group Unknown Author Organization [facility] Address [address] [facility] [place] [address] Care Team Providers Care Orthoptist Name Role Phone CARYN CALABRESE Primary Care Provider Encounters Encounter Location Date Provider Diagnosis [facility] [address] [facility] [address] [place] [address] 07/22/2024 CARYN CALABRESE Plan Of Treatment No Information Progress Notes * Alvaro MOSQUERAB:[birth year] (74 yo F)Acc No.[id number]:07/22/2024 Patient:?Pete MOSQUERAa :1950???Age:74 Y???Sex:Female Address:[address] [place], [place] * true * Date:? Generated for Royer cruz/Charis/eTransmitting on:?08/07/2024 09:09 AM EDT
--- OUTSIDE RECORDS SUMMARY | 2024-08-07 09:10 | XMS_ITS | Clinical Summary ---
Demographics Address [address] [place] [address] Home Phone Email Address Preferred Language Lithuanian Marital Status Cheondoism Affiliation Unknown Race White Ethnic Group Not or Lati no Author Organization [facility] Address [address] [place] [address] Support Name Relationship Address Phone Rigo Steiner Emergency Contact [address] [facility] [place] [address] Care Team Providers Care Flarer Name Role Phone Obi Miller MD Primary Care Provider [phone] Allergies Active Allergy Reactions Criticality Noted Date [...] Lizzette Steiner Personal/Family Self 1950 [address] [place] [address] Care Teams Flarer Relationship Specialty Start Date End Date Obi Miller MD [address] [place] [id number] PCP - General Internal Medicine 01/31/18
--- OUTSIDE RECORDS SUMMARY | 2024-08-07 09:10 | XMS_ITS | Patient Health Record ---
Demographics Address [address] [place], [place] Mobile Email Address Preferred Language en Marital Status Unknown Sikh Affiliation Unknown Race White Ethnic Group Unknown Author Organization [place] Address [address] [place] [address] Care Team Providers Care Change Release Manager Name Role Phone CARYN CALABREES Primary Care Provider Ángel Box Unavailable [phone] Herson Franco Unavailable [phone] Allergies Allergen (clinical drug ingredient) Drug/Non Drug Allergy documented on EMR Reaction Allergy Type Onset Date Status Adhesive Unknown Allergy Active codeine Codeine Unknown Drug Allergy Active oxycodone Oxycodone Unknown Drug Allergy Active Results Component Value Reference Range Notes Basic Metabolic Panel [id number] Reviewed date:12/12/2023 08:24:30 AM Interpretation: Performing Lab:[facility], [address] [facility], Phone - [phone], Director - Ruthy Notes/Report: Clinical Information:SRC: Glucose 160 70-99 mg/dL BUN 22 8-27 mg/dL Creatinine 1.09 0.57-1.00 mg/dL eGFR 53 >59 mL/min/1.73 BUN/Creatinine Ratio 20 12-28 Sodium 143 134-144 mmol/L Potassium 4.7 3.5-5.2 mmol/L Chloride 104 96-106 mmol/L Carbon Dioxide, Total 22 20-29 mmol/L [id number]-[id number] Reviewed date:12/12/2023 07:57:52 AM Interpretation: Performing Lab:[facility], [address] [facility], [place], Phone - [phone], Director - Ruthy Notes/Report: Clinical Information:SRC: Magnesium 1.6 1.6-2.3 mg/dL Hemoglobin [id number] Reviewed date:12/12/2023 08:24:15 AM Interpretation: Performing Lab:[facility], [address], [place], Phone - [phone], Director - Ruthy Notes/Report: Clinical Information:SRC: Hemoglobin A1c 7.5 4.8-5.6 % . Prediabetes: 5.7 - 6.4 Diabetes: >6.4 Glycemic control for adults with diabetes: <7.0 Reason For Referral Reason Please evaluate and treat. Diagnosis 1 Gastro-esophageal re flux disease without esophagitis (K21.9) Diagnosis 2 Gastritis and duoden itis (K29.90) Referral Organization [facility] Referring Provider First Name CARYN Referring Provider Last Name BHARATI Referring Provider [facility]ity [facility] Referred Provider Specialty Gastroentero logy General Notes Referral faxed. Plea se call patient to schedule appointment.Danielle Shannon 06/11/2024 02:40:05 PM > Referral Priority Routine Reason Dr. Dez Inman an Diagnosis 1 Gastro-esophageal re flux disease with esophagitis, without bleeding (K21.00) Diagnosis 2 Gastritis and duoden itis (K29.90) Referral Organization [facility] Referring Provider First Name Ángel Referring Provider Last Name Isauro Referring Provider Speciality Internal [facility] Referred Provider Specialty Gastroentero logy General Notes Referral faxed. Plea se call patient to schedule appointment.Danielle Shannon 06/12/2024 10:42:59 AM > Referral Priority Routine Reason shoulder pain plea se evaluate and treat Diagnosis 1 Pain in unspecified shoulder (M25.519) Referral Organization [facility] Referring Provider First Name Herson Referring Provider Last Name Salvador Referred Provider Specialty Orthopedic S urgery General Notes Referral was faxed t o [facility]. Please contact patient for scheduling.Dwayne [...] dx: E08.40 for 30 days 12/18/2023 Active OneSmartestinguch Ultra Blue - Use 2-3 times a [...] a day for 30 days 02/10/2023 Not-Taking Colace 100 MG 1 capsule as [...] Status W/U Status Risk Notes Problem Hypothyroidism (97451470) Hypothyroidism, unspecified (E03.9) Active confirmed Problem Diabetic neuropathy (899437494) Diabetes mellitus due to underlying condition with diabetic neuropathy, unspecified (E08.40) Active confirmed Problem Secondary diabetes mellitus (1225002) Diabetes mellitus due to underlying condition with hyperglycemia (E08.65) Active confirmed Problem Mixed hyperlipidemia (597975053) Mixed hyperlipidemia (E78.2) Active confirmed Problem Schizoaffective disorder, depressive type (05240130) Schizoaffective disorder, depressive type (F25.1) Active confirmed Problem Moderate recurrent major depression (92706648) Major depressive disorder, recurrent, moderate (F33.1) Active confirmed Problem Generalized anxiety disorder (44540092) Generalized anxiety disorder (F41.1) Active confirmed Problem Hearing loss (14494967) Unspecified hearing loss, bilateral (H91.93) Active confirmed Problem Gastro-esophageal reflux disease without esophagitis (258886749) Gastro-esophageal reflux disease without esophagitis (K21.9) Active confirmed Problem Obstruction of duodenum (91748767) Obstruction of duodenum (K31.5) Active confirmed Problem Osteoarthritis (348094545) Polyosteoarthritis , unspecified (M15.9) Active confirmed Problem Chronic kidney disease (335027540) Chronic kidney disease, unspecified (N18.9) Active confirmed Problem Long-term current use of insulin (215319145) 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 insulin (Z79.4) Active confirmed Problem Obsessive-compulsiv e disorder (716321547) Obsessive-compulsi ve disorder, unspecified (F42.9) Active confirmed Problem Amnesia (92860666) Complaints of memory disturbance (R41.3) Active confirmed Problem Gastroesophageal reflux disease with esophagitis (disorder) (123384608) Gastro-esophageal reflux disease with esophagitis, without bleeding (K21.00) Active confirmed Problem Gastritis and duodenitis (686948594) Gastritis and duodenitis (K29.90) Active confirmed Vital Signs Heart Rate 80 /min 06/27/2024 Temperature 98 degrees Fahrenheit 06/27/2024 Blood pressure diastolic 70 mm Hg 06/27/2024 Oximetry 97 % 06/27/2024 Height 5'1 in 06/11/2024 Blood pressure systolic 130 mm Hg 06/27/2024 Weight 160 lbs 06/11/2024 BMI 30.23 kg/m2 06/11/2024 Encounters Encounter Location Date Provider Diagnosis [address] [address] 12/13/2023 CARYN CALABRESE Encounter for genera l adult medical examination without abnormal findings Z00.00 ; Diabetes mellitus due to underlying condition with diabetic neuropathy, unspecified E08.40 ; Mixed hyperlipidemia E78.2 ; Hypothyroidism, unspecified E03.9 ; Generalized anxiety disorder F41.1 and Chronic kidney disease, unspecified N18.[address] [address] 02/08/2024 Herson Franco Viral conjunctivitis , unspecified B30.[address] [address] 05/17/2024 [facility] discharge follow-up Z09 ; Schizoaffective disorder, depressive type F25.1 ; Generalized anxiety disorder F41.1 and Diabetes mellitus due to underlying condition with hyperglycemia E08.[address] [address] 06/11/2024 [facility] Schizoaffective disorder, depressive type F25.1 ; Hospital discharge follow-up Z09 ; Generalized anxiety disorder F41.1 ; Diabetes mellitus due to underlying condition with hyperglycemia E08.65 and Gastro-esophageal reflux disease with esophagitis, without bleeding K21.00 [facility] [address] [place] [address] 06/27/2024 Ángel Box Schizoaffective disorder, depressive type F25.1 ; Hospital discharge follow-up Z09 ; Generalized anxiety disorder F41.1 ; Diabetes mellitus due to underlying condition with hyperglycemia E08.65 ; Gastro-esophageal reflux disease with esophagitis, without bleeding K21.00 and Obstruction of duodenum K31.5 [facility] [address] [place] [address] 07/19/2024 Ghadeer Mazloum Pain in left shoulde r M25.512 and Pain in unspecified shoulder M25.519 [facility] [address] [place] [address] 08/25/2023 [facility] [address] [place] [address] 08/30/2023 [facility] [address] [place] [address] 08/31/2023 [facility] [address] [place] [address] 08/31/[address] [place] [address] 10/09/[address] [place] [address] 10/23/[address] [place] [address] 10/24/[address] [place] [address] 10/25/[address] [place] [address] 10/27/[address] [place] [address] 12/06/2023 RUBIN L [facility] [address] [place] [address] 12/15/2023 RBUIN L [facility] [address] [place] [address] 01/02/2024 [facility] [address] [place] [address] 03/14/2024 Ghadeer Mazloum Pruritus vulvae L29. 2 [facility] [address] [place] [address] 04/03/2024 Ghadeer Mazloum Pain in unspecified shoulder M25.519 [facility] [address] [place] [address] 04/03/2024 Ghadeer Mazloum Pain in unspecified shoulder M25.519 [facility] [address] [place] [address] 04/05/2024 RUBIN GUL Pain in unspecified shoulder M25.[address] [place] [address] [facility] [address] [place] [address] 04/05/2024 [facility] [address] [place] [address] 05/22/2024 [facility] [address] [place] [address] 05/29/2024 [facility] [address] [place] [address] 05/30/2024 Ghadeer Mazloum [facility] [address] [place] [address] 06/10/2024 RUBIN L [facility] [address] [place] [address] 06/18/2024 [facility] [address] [place] [address] 06/20/[address] [place] [address] 06/21/[address] [place] [address] 07/08/[address] [address] [place] [address] 07/09/[address] [place] [address] 07/12/[address] [place] [address] 07/16/2024 Ghadeer Mazloum Pain in unspecified shoulder M25.[address] [place] [address] 07/17/2024 Ghadeer Mazloum Pain in unspecified shoulder M25.[address] [place] [address] [address] [place] [address] 07/18/2024 [facility] [address] [place] [address] 07/22/2024 [facility] Assessments Encounter Date Diagnosis (ICD Code) Assessment [...] months. Continue current regimen. She is seen dog breeder and podiatry in the past 1 year. [...] is noted. Advised patient on taking Ketotifen zadp-wop-momcvxc eyedrop. She can also start taking partial tears for dry eyes. She can also use warm compresses. I have rendered the services for this patient under direct supervision of Dr. Calabrese, who did not see the patient but was available upon request 03/14/2024 Pruritus vulvae (ICD-10 - L29.2) 04/03/2024 Pain in unspecified shoulder (ICD-10 - M25.519) CancelRx Response got Denied on 2024-08-02 10:49:48 for 'traMADol HCl 25 MG Tablet'Pharmac y Notes: Prescription not found. Contact Pharmacy by other means 04/03/2024 Pain in unspecified shoulder (ICD-10 - M25.519) 04/05/2024 Pain in unspecified shoulder (ICD-10 - M25.519) 05/17/2024 Schizoaffective disorder, depressive type (ICD-10 - F25.1) 74 years old lady With insulin-dependent DM type II, hypertension, hyperlipidemia, hypothyroidism generalized anxiety disorder, acid reflux schizoaffective disorder who was seen in the [facility] emergency room on a 05/15 24 for extreme fatigue weakness and then went to [facility] on 05/16/24 for the same complaints is here for posthospital discharge follow-up. Post discharge Hospital follow-up 7 days fatigue weakness poor appetite due to dehydration possible withdrawal from abruptly stopping Cymbalta, in increased dose of Latuda and then discontinuing Latuda completely All lab work has been unremarkable no evidence of any infection notes from [facility] has been reviewed. Discussed at [...] schizoaffective disorder who was seen in the [facility] emergency room on a 05/15 24 for extreme fatigue weakness and then went to [facility] on 05/16/24 for the same complaints is here for posthospital discharge follow-up. Post discharge Hospital follow-up 7 days fatigue weakness poor appetite due to dehydration possible withdrawal from abruptly stopping Cymbalta, in increased dose of Latuda and then discontinuing Latuda completely All lab work has been unremarkable no evidence of any infection notes from [facility] has been reviewed. Discussed at [...] reflux schizoaffective disorder who was admitted to [facility] for acute cholecystitis status post cholecystectomy readmitted for nausea vomiting epigastric pain and dehydration and is here today for a follow-up visit.I reviewed all the reports lab work procedure notes from [facility] discharge paperwork and discussed it with the [...] reflux schizoaffective disorder who was admitted to [facility] for acute cholecystitis status post cholecystectomy readmitted for nausea vomiting epigastric pain and dehydration and is here today for a follow-up visit.I reviewed all the reports lab work procedure notes from [facility] discharge paperwork and discussed it with the [...] reflux schizoaffective disorder who was admitted to [facility] and was discharged on 06/25/24. Post discharge Hospital follow-up 2days days she is feeling much better, she was diagnosed with Severe hypomagnesemia, CT imaging showed duodenal stricture. Status post 2 unsuccessful attempts of duodenal dilatation. Television Producer Dr. Russo is planning to do another [...] reflux schizoaffective disorder who was admitted to [facility] and was discharged on 06/25/24. Post discharge Hospital follow-up 2days days she is feeling much better, she was diagnosed with Severe hypomagnesemia, CT imaging showed duodenal stricture. Status post 2 unsuccessful attempts of duodenal dilatation. Television Producer Dr. Russo is planning to do another [...] Pain in unspecified shoulder (ICD-10 - M25.519) 07/19/2024 Pain in left shoulder (ICD-10 - M25.512) 07/19/2024 Pain in unspecified shoulder (ICD-10 - M25.519) 06/27/2024 Generalized anxiety disorder (ICD-10 - F41.1) 74 years old lady With insulin-dependent DM type II, hypertension, hyperlipidemia, hypothyroidism generalized anxiety disorder, acid reflux schizoaffective disorder who was admitted to [facility] and was discharged on 06/25/24. Post discharge Hospital follow-up 2days days she is feeling much better, she was diagnosed with Severe hypomagnesemia, CT imaging showed duodenal stricture. Status post 2 unsuccessful attempts of duodenal dilatation. Television Producer Dr. Russo is planning to do another [...] reflux schizoaffective disorder who was admitted to [facility] for acute cholecystitis status post cholecystectomy readmitted for nausea vomiting epigastric pain and dehydration and is here today for a follow-up visit.I reviewed all the reports lab work procedure notes from [facility] discharge paperwork and discussed it with the [...] schizoaffective disorder who was seen in the [facility] emergency room on a 05/15 24 for extreme fatigue weakness and then went to [facility] on 05/16/24 for the same complaints is here for posthospital discharge follow-up. Post discharge Hospital follow-up 7 days fatigue weakness poor appetite due to dehydration possible withdrawal from abruptly stopping Cymbalta, in increased dose of Latuda and then discontinuing Latuda completely All lab work has been unremarkable no evidence of any infection notes from [facility] and [facility] has been reviewed. Discussed at length with [...] months. Continue current regimen. She is seen dog breeder and podiatry in the past 1 year. [...] months. Continue current regimen. She is seen dog breeder and podiatry in the past 1 year. [...] schizoaffective disorder who was seen in the [facility] emergency room on a 05/15 24 for extreme fatigue weakness and then went to [facility] on 05/16/24 for the same complaints is here for posthospital discharge follow-up. Post discharge Hospital follow-up 7 days fatigue weakness poor appetite due to dehydration possible withdrawal from abruptly stopping Cymbalta, in increased dose of Latuda and then discontinuing Latuda completely All lab work has been unremarkable no evidence of any infection notes from [facility] and [facility] has been reviewed. Discussed at length with [...] reflux schizoaffective disorder who was admitted to [facility] for acute cholecystitis status post cholecystectomy readmitted for nausea vomiting epigastric pain and dehydration and is here today for a follow-up visit.I reviewed all the reports lab work procedure notes from [facility] discharge paperwork and discussed it with the [...] reflux schizoaffective disorder who was admitted to [facility] and was discharged on 06/25/24. Post discharge Hospital follow-up 2days days she is feeling much better, she was diagnosed with Severe hypomagnesemia, CT imaging showed duodenal stricture. Status post 2 unsuccessful attempts of duodenal dilatation. Television Producer Dr. Russo is planning to do another [...] reflux schizoaffective disorder who was admitted to [facility] and was discharged on 06/25/24. Post discharge Hospital follow-up 2days days she is feeling much better, she was diagnosed with Severe hypomagnesemia, CT imaging showed duodenal stricture. Status post 2 unsuccessful attempts of duodenal dilatation. Television Producer Dr. Russo is planning to do another [...] reflux schizoaffective disorder who was admitted to [facility] for acute cholecystitis status post cholecystectomy readmitted for nausea vomiting epigastric pain and dehydration and is here today for a follow-up visit.I reviewed all the reports lab work procedure notes from [facility] discharge paperwork and discussed it with the [...] months. Continue current regimen. She is seen dog breeder and podiatry in the past 1 year. [...] months. Continue current regimen. She is seen dog breeder and podiatry in the past 1 year. [...] reflux schizoaffective disorder who was admitted to [facility] and was discharged on 06/25/24. Post discharge Hospital follow-up 2days days she is feeling much better, she was diagnosed with Severe hypomagnesemia, CT imaging showed duodenal stricture. Status post 2 unsuccessful attempts of duodenal dilatation. Television Producer Dr. Russo is planning to do another [...] months. Continue current regimen. She is seen dog breeder and podiatry in the past 1 year. [...] Future Test Test Name Order Date Hemoglobin [id number] 12/13/2023 Albumin/Creatinine Ratio,[id number] Lipid Panel-[id number] 12/13/2023 Comp. 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
== END 2024-08-07 09:56 | disposition home or self-care (01) ==
LOC: HO.PMC 08:47
PROVIDERS: PCP Hospitalist; Visit Provider Internal Medicine
DX: M46.92 Unspecified inflammatory spondylopathy, cervical region (principal); M54.12 Radiculopathy, cervical region
CPT/HCPCS: 99213

== ENCOUNTER → 2024-08-07 08:47 | Outpatient (BNVA) | payer MEDICARE, OTHER, SELFPAY | PROVIDERS: PCP Hospitalist; Visit Provider Internal Medicine | DX: M46.92 Unspecified inflammatory spondylopathy, cervical region (principal); M54.12 Radiculopathy, cervical region | CPT/HCPCS: 99212 ==

== ENCOUNTER 2024-08-09 11:07 | Outpatient (AMB) | payer MEDICARE, OTHER, SELFPAY ==
--- NOTE | 2024-08-09 11:12 | A.OFFVIS_ITS ---
Vital Signs 08/09/24 11:18 Height 5 ft 2 in BMI Reason not done Patient refused/unable BP 139/75 Blood Pressure Location Lt brachial Position Sitting Pulse 76 Intake Visit Reasons: egd Intake Note: Elzbieta presents in the office as a follow up for her EGD. CC: Pains in her shoulders, neck, and her back. Allergies insulin detemir [From Levemir U-100 Insulin] Allergy (Severe, Verified 08/07/24 08:55) Itching adhesive tape Allergy (Intermediate, Verified 08/07/24 08:55) Rash from medical tape, tegaderm, etc. bupropion [From Wellbutrin] Allergy (Intermediate, Verified 08/07/24 08:55) Rash codeine [Codeine] Allergy (Intermediate, Verified 08/07/24 08:55) Nausea and Vomiting escitalopram Allergy (Intermediate, Verified 08/07/24 08:55) lethargy NSAIDS (Non-Steroidal Anti-Inflamma Allergy (Intermediate, Verified 08/07/24 08:55) Swelling oxycodone [From OxyContin] Allergy (Intermediate, Verified 08/07/24 08:55) Itching pregabalin Allergy (Intermediate, Verified 08/07/24 08:55) Confusion rosuvastatin [Crestor] Adverse Reaction (Intermediate, Verified 08/07/24 08:55) joint pain HPI HPI egd: Details: 74 yr old f with duodenal stricture She had symptomatic GOO she has had x 4 EGD with dilation of tight duodenal stricture she feels is has helped but the stricture looks similar to me and not improved bx have not shown any neoplasia, but one sample with some atypia CT 05/28- duodenal thickening, stranding, better than prior EXAM: GENERAL: The patient is well developed and nontoxic. VITAL SIGNS:see workflow HEENT: Nonicteric sclerae, PERRLA, EOMI. Oropharynx clear. Moist mucous membranes. Conjunctivae appear well perfused. No thyroid mass. CHEST: Chest wall is nontender. HEART: Regular rate and rhythm without murmurs. LUNGS: Clear to auscultation bilaterally. ABDOMEN: Soft, positive bowel sounds, nontender, no organomegaly.no flank tenderness SKIN: No rash, no excessive bruising, petechiae, or purpura. NEUROLOGIC: Cranial nerves II-XII intact without motor/sensory deficit. 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 but atypia on one sample PLAN: 1/ Refer Dr choi for discussion for surgery, neoplasia or dysplasia not excluded, We could do WATS sampling as well for better diagnostics if needed, but again always an issue with sampling error possible 2/ cont with PPI --has to stop PPI for 2 weeks before hand PFSH Medical History (Updated 07/30/24 @ 13:20 by Jennifer Rogers RN) Duodenal stricture Duodenitis Bilateral cataracts Schizoaffective disorder Confusion Skin rash Vitamin D deficiency HTN (hypertension) HLD (hyperlipidemia) Cellulitis of leg, left Urinary urgency Arthralgia of shoulder region, left Cervical spondylitis with radiculitis Myofascial pain on left side Depression OCD (obsessive compulsive disorder) DJD (degenerative joint disease) SI (sacroiliac) joint dysfunction Fibromyalgia GERD (gastroesophageal reflux disease) Neuropathy Diabetes Surgical History (Updated 07/30/24 @ 13:19 by Jennifer Rogers RN) History of esophagogastroduodenoscopy (EGD) History of laparoscopic cholecystectomy (~05/24/24) H/O mastectomy Hx of appendectomy H/O exploratory laparotomy History of surgery Family History Father No problems noted. Mother No problems noted. Social History Household Members: Spouse Household Members Other:: 1 Housing: House Are you a primary plant care worker to a significant other at home: No Do you presently have visiting nurse or other home services: Yes ([facility]) Alcohol intake: former Comment: uses cane and walker at home Patient Tobacco Use Status: Never used Tobacco Tobacco use type: Cigarette e-Cigarette/Vaping Use: Never Used Second Hand Smoke Exposure: No Advance Directives Date on File: 06/01/24 service: No Current occupational status: retired Cognitive needs: Yes (cane) Hearing needs: Yes (hearing aide) Vision needs: Yes (glasses) Physical Exam Vital Signs: Last Vital Signs Pulse 76 08/09/24 11:18 BP 139/75 08/09/24 11:18 Assessment & Plan Assessment & Plan (1) Gastritis: Code(s): K29.70 - Gastritis, unspecified, without bleeding Category: Medical Plan: as above Coding Level of Care Code Est Pt Level 3 (46434) Diagnoses Gastritis K29.70
[2024-08-09 11:18] VITALS: BP 139/75; PULSE 76
--- OUTSIDE RECORDS SUMMARY | 2024-08-09 11:37 | XMS_ITS | Clinical Summary ---
Demographics Address [address] [place] [address] Home Phone Email Address Preferred Language Icelandic Marital Status Bahai Affiliation Unknown Race White Ethnic Group Not or Lati no Author Organization [facility] Address [address] [place] [address] Support Name Relationship Address Phone Rigo Steiner Emergency Contact [address] [facility] [place] [address] Care Team Providers Care It Infrastructure Consultant Name Role Phone Obi Miller MD Primary Care Provider [phone] Allergies Active Allergy Reactions Criticality Noted Date [...] Lizzette Steiner Personal/Family Self 1950 [address] [place] [address] Care Teams It Infrastructure Consultant Relationship Specialty Start Date End Date Obi Miller MD [address] [place] [address] PCP - General Internal Medicine 01/31/18
== END 2024-08-09 11:41 | disposition home or self-care (01) ==
LOC: HO.HGI 11:08
PROVIDERS: PCP Hospitalist; Visit Provider Internal Medicine Gastroenterology
DX: K29.70 Gastritis, unspecified, without bleeding (principal)
CPT/HCPCS: 99213

== ENCOUNTER → 2024-08-09 11:07 | Outpatient (BNVA) | payer MEDICARE, OTHER, SELFPAY | PROVIDERS: PCP Hospitalist; Visit Provider Internal Medicine Gastroenterology | DX: K29.70 Gastritis, unspecified, without bleeding (principal) | CPT/HCPCS: 99212 ==

== ENCOUNTER 2024-08-15 06:07 | Outpatient (REF) | payer MEDICARE, OTHER, SELFPAY ==
--- NOTE | ~2024-08-15 | FL_ITS ---
EXAMINATION: FL GUIDANCE ONLY HISTORY: M46.92 - Unspecified inflammatory spondylopathy, cervical region COMPARISON: None available. TECHNIQUE: Fluoroscopy time: 0.2 minutes. Cumulative Dose: 2.09 mGy. DAP: 0.0100 mGym2 Images: 2. FINDINGS: Fluoroscopic spot films of the cervical spine demonstrate a needle in place. FL/FL guidance in treatment room IMPRESSION: Fluoroscopy during procedure. Please see procedure report for additional information. Electronically signed by: Frank Syed MD 08/15/2024 11:46 AM EDT
--- OUTSIDE RECORDS SUMMARY | 2024-08-15 06:10 | XMS_ITS | Patient Health Record ---
Demographics Address [address] [place] [address] Email Address Preferred Language en Marital Status Faith Affiliation Unknown Race White Ethnic Group Not or Lati no Author [facility] Address [address] [facility] [place] [address] Support Name Relationship Address Phone Rigo Jin Emergency Contact [address] [place] [address] Lizzette Steiner Guarantor Unknown Care Team Providers Care Acid Supervisor Name Role Phone Tyrone Ortegad Primary Care Provider Cedric Rueda Unavailable [phone] Allergies Allergen (clinical drug ingredient) Drug/Non Drug [...] Status Risk Notes Problem Contusion of foot (50086637) Contusion of foot (924.20) Active confirmed Problem Edema (95340984) Edema (782.3) Active confirmed Problem Diabetic - NIDDM/Neuropathy (250.60) Active confirmed Problem Polyneuropathy due to type 2 diabetes mellitus (893902966) Type 2 diabetes mellitus with diabetic polyneuropathy (E11.42) Active confirmed Plan Of Treatment Pending Test Test Name Order Date X ray : Foot, left 3V 02/23/2011 Insurance Providers Payer Name Payer Address Payer Phone Subscriber Number Group Number Insured Name Patient Relationship to Insured Coverage Start Date Coverage End Date Medicare National Govt Sv[employer] [address] [facility] [place] [address] [id number] Lizzette Steiner Self - patient is the insured [facility] [address] [place] [address] [phone] [id number] Rigo Steiner Spouse - patient is the spouse of the insured Medical (General) History Medical History History ICD Code breast cancer chicken pox thyroid disorder measles diabetic depression Anxiety Arthritis asthma Back,Hip,and Knee pain Cataracts Depression Fibromyalgia Numbness Psychiatric disorder Hearing loss Surgical History Surgery Date(Month/Year) right mastectomy Left shoulder 3 Spurs
--- OUTSIDE RECORDS SUMMARY | 2024-08-15 06:10 | XMS_ITS ---
Demographics Address [address] [place] [address] Email Address Preferred Language en Marital Status Lutheran Affiliation Unknown Race White Ethnic Group Not or Lati no Author Organization [facility] Address [address] [place] [address] Support Name Relationship Address Phone Rigo Jin Emergency Contact [address] [place], [place] [phone] Lizzette Mosquera Guarantor Unknown [phone] Care Team Providers Care Army Officer Name Role Phone Noah Ortega Primary Care Provider Cedric Rueda Unavailable [phone] Allergies Allergen (clinical drug ingredient) Drug/Non Drug [...] Polyneuropathy due to type 2 diabetes mellitus (540447610) Type 2 diabetes mellitus with diabetic polyneuropathy (E11.42) Active confirmed Vital Signs Height 5 ft 1 in in 06/07/2023 Weight 155 lbs 06/07/2023 BMI 29.28 kg/m2 06/07/2023 Encounters Encounter Location Date Provider Diagnosis [facility] [place] [address] [place] [address] 06/07/2023 Cedric Sosa Type 2 diabetes mellitus [...] as necessary. Patient chooses, no pharmaceutical tx (75620) Progress Notes * Lizzette MOSQUERA LDOB:1950 (73 yo F)Acc No.[id number]:06/07/2023 Progress Notes Patient:?Lizzette Mosquera Provider:?Cedric Sosa DPM :1950???Age:73 Y???Sex:Female D ate:06/07/2023 Address: [address] [facility] Pcp:Noah Ortega Subjective: * Chief Complaints: * [...] as necessary. Patient chooses, no pharmaceutical tx (70000).? * Procedure Codes:?77561 DEBRI DE NAIL, 6 OR MORE, Modifiers: [...] DPM Date:? 024 Generated for Printi ng/Faelizabethg/eTransmitting on:?08/15/2024 06:10 AM EDT History and Physical Notes * [...]
--- OUTSIDE RECORDS SUMMARY | 2024-08-15 06:11 | XMS_ITS | Data Portability ---
Demographics Address [address] [place] [address] Home Phone Email Address Preferred Language en Marital Status Unknown Buddhist Affiliation Unknown Race White Ethnic Group Not or Lati no Author Organization [facility], [facility] Address [address] [place] [address] Assessment No assessment recorded. Plan of Treatment Reminders Order Date Submit Date Provider Last Modified By Organization Details Last Modified Time Details Appointments None record ed. Lab None record ed. Referral None record ed. Procedures None record ed. Surgeries None record ed. Imaging XR, should er, 2 or more view 025 08/07/19 [email or web address] [facility] Office, [address] [facility] [employer], [facility] [address], [place], [address], 16:26:32 Medication Orders None record ed. Patient TargetsNo targets recorded. Patient InstructionsNo instructions recorded. Reason for Referral None Reported. Results Created Date Observation Date Name Description Value Unit Range Abnormal Flag Note LastModifiedBy Organization Detail LastModifiedTime 08/07/19 25 08/06/2024 XR, shoul kennedy, 2 or more view http:/ [email or web address] ?Encry pted=s hAaTro YD8dLq bEUv6g %2BXZw aYqtaq 0bqfl% 2Fg9IQ a4ajBk vP9nXo QUaueC m3YtLR FvZlgJ JJ8mAn HZtai3 7x8960 AC0Kla nuAVKW iKiQtr MwF INTERFACE [facility] [address], [place], [address], 08/06/2024 14:52:48 08/07/19 25 08/06/2024 XR, shoul kennedy, 2 or more view http:/ [email or web address] ?Encry pted=s hAaTro YD8dLq bEUv6g %2BXZw aYqtaq 0bqfl% 2Fg9IQ a4ajBk vP9nXo QUaueC m3YtLR FvZlgJ JJ8mAn HZtai3 3e3164 AC0Kla nuAVKW iKiQtr MwF INTERFACE [facility] [address], [place], [address], 08/06/2024 14:52:50 Result Notes None recorded. Problems Name Problem SNOMED Code Status Onset Date Resolution Date Notes Provider Name and Address Organization Details Recorded Time Bilateral shoulder osteoarthri tis 0650218646670 08 Active 2024 Juan Hunt MD [address], [place], [address], [facility] 15:35:34 Problem Notes None recorded. Procedures Surgical History None recorded. Imaging Results Imaging Date Name Status LastModified by Organiz ation Details LastModified Time 08/06/2024 XR, shoulder, 2 or more view completed INTERFACE [employer] [facility] [address], [place], [address], 08/06/2024 14:52:48 08/06/2024 XR, shoulder, 2 or more view completed INTERFACE [employer] [facility] [address], [place], [address], 08/06/2024 14:52:50 Procedure Notes None recorded. Medical Equipment None Reported. Allergies Allergen ID Allergen Name Allergen Category Reaction Reaction Severity Criticality Documentation Date Start Date Code Code System Note Provider Name and Address Organization Details Recorded Time 740537 codeine medicatio n Not available Not available Not available 08/06/2024 2670 RxNorm Giuliana sawyer [place] - [facility] 14:41:23 Medications Name Sig Start Date Stop Date Status Note LastModified by Organization Details LastModified Time acetaminoph en 325 mg tablet TAKE 2 TABLETS ORALLY EVERY 6 HOURS NEEDED FOR PAIN, MILD 1-3,FEVER ,HEADACHE active Not Available Not Available No t Available ondansetron HCl 4 mg tablet TAKE 1 TABLET BY MOUTH TWICE A DAY FOR 15 DAYS active Not Available Not Available No t Available gabapentin 400 mg capsule TAKE 1 CAPSULE BY MOUTH 3 TIMES A DAY FOR 30 DAYS. active Not Available Not Available No t Available tramadol 50 mg tablet TAKE 1/2 TABLET NEEDED ORALLY ONCE A DAY 5 DAYS 08/06 completed Not Available Not Available Not Available bupropion HCl SR 100 mg tablet,12 hr sustained-r elease TAKE 1 TABLET BY MOUTH EVERY DAY IN THE MORNING active Not Available Not Available No t Available simvastatin 40 mg tablet TAKE 1 TABLET BY MOUTH EVERY DAY IN THE EVENING FOR 90 DAYS active Not Available Not Available No t Available magnesium oxide 400 mg (241.3 mg magnesium) tablet TAKE 1 TABLET BY MOUTH EVERY DAY FOR 30 DAYS active Not Available Not Available No t Available lorazepam 0.5 mg tablet TAKE 1 TABLET BY MOUTH THREE TIMES A DAY NEEDED FOR ANXIETY OR SLEEP active Not Available Not Available No t Available OneTouch Ultra Test strips USE 2 TO 3 TIMES DAILY active Not Available Not Available No t Available levothyroxi ne 125 mcg tablet TAKE 1 TABLET BY MOUTH EVERY DAY IN THE MORNING ON EMPTY STOMACH FOR 90 DAYS active Not Available Not Available No t Available diclofenac sodium 75 mg tablet,casper yed release TAKE 1 TABLET BY MOUTH TWICE A DAY FOR 30 DAYS active Not Available Not Available No t Available fluocinolon e 0.025 % topical ointment PLEASE SEE ATTACHED FOR DETAILED DIRECTION S active Not Available Not Available No t Available pyridoxine (vitamin B6) 100 mg tablet TAKE 1 TABLET BY MOUTH DAILY FOR 90 DAYS active Not Available Not Available No t Available ipratropium bromide 42 mcg (0.06 %) nasal spray USE 1 TO 2 SPRAYS IN EACH NOSTRIL 4 TIMES A DAY NEEDED active Not Available Not Available No t Available amoxicillin 875 mg-potassiu m clavulanate 125 mg tablet TAKE 1 TABLET BY MOUTH EVERY 12 HOURS active Not Available Not Available No t Available duloxetine 30 mg capsule,del ayed release TAKE 1 CAPSULE BY MOUTH EVERY DAY AT NIGHT active Not Available Not Available No t Available duloxetine 60 mg capsule,del ayed release TAKE 1 CAPSULE BY MOUTH EVERY DAY AT NIGHT active Not Available Not Available No t Available BD Ultra-Fine Short Pen Needle 31 gauge x 5/16 USE TO INJECT INSULIN DAILY DX: E08.40 30 DAYS active Not Available Not Available No t Available ferrous sulfate 324 mg (65 mg iron) tablet,casper yed release TAKE 1 TABLET BY MOUTH EVERY DAY active Not Available Not Available No t Available lurasidone 40 mg tablet TAKE 1 TABLET BY MOUTH EVERY DAY IN THE EVENING active Not Available Not Available No t Available lurasidone 20 mg tablet TAKE 1 TABLET BY MOUTH EVERY DAY IN THE EVENING active Not Available Not Available No t Available Basaglravin KwikPen U-100 Insulin 100 unit/mL (3 mL) subcutaneou s INJECT 50 UNITS SUBCUTANE OUSLY ONCE A DAY FOR 30 DAYS active Not Available Not Available No t Available tramadol 25 mg tablet TAKE 1 TABLET BY MOUTH DIRECTED ONCE A DAY FOR 5 DAYS 08/06 completed Not Available Not Available Not Available Vitals Date Recorded Body height Body mass index (BMI) Body weight Provider Name and Address Organization Details Last Updated DateTime 08/06/2024 157.48 cm 25.8 kg/m2 51443.52 g Giuliana acosta [facility] 08/06/2024 14:41:11 Social History None recorded. Functional Status None recorded. Mental Status None recorded. Family History Nothing Reported. Medical History No medical history recorded. Gynecological HistoryNo gynecological history recorded. Obstetrics History GPAL:G 0 P 0 0 0 0 Past Encounters Encounter ID Performer Location Encounter Start Date Encounter Closed Date Diagnosis/Indication Diagnosis SNOMED-CT Code Diagnosis ICD10 Code Diagnosis Note [id number] Juan Hunt MD [facility] Clinical [address] [place] [address] 08/06/2024 14:24:38 08/06/2024 15:36:04 Pain of bilateral shoulder regions 7167143876 72155 M25.511 M25.512 Bilateral shoulder osteoarthritis 6216032754 36822 M19.011 M19.012 Health Concerns Section Related Observation LastModified by Organization Detai ls LastModified Time None Recorded Concern Status LastModified by Organization Details LastModified Time None Recorded Advance Directives Directive None Recorded Payers Encounter Date Sequence Insurance Name Policy Number Policy Srinivasan Covered Member ID Srinivasan Member ID Guarantor Name 08/06/2024 2 [facility] IN[facility]MN[facility] (MEDICARE SUPPLEMENT) [id number] Lizzette Steiner [id number] Lizzette Steiner 08/06/2024 1 MEDICARE B-[place]: [facility] [employer] Lizzette Steiner [id number] Lizzette Steiner Notes Date Note Type Note Provider Name and Address Organization Details Recorded Time 08/06 text/ html CC: Bilateral shoulder pain, neck pain, bilateral upper extremity pain HPI: Patient is a 74-year-old female accompanied today with her cousin for chief complaint of bilateral shoulder, neck, upper extremity and back pain. She reports symptoms chronic in nature. She follows with [facility] pain management. She was referred to neurosurgeon to evaluate for surgery for her neck however she felt that she was too old to consider surgery. History of previous arthroscopic shoulder surgery performed by Dr. Wesley. She did not recall specifics regarding the surgery or site. She complains of severely limited shoulder range of motion and locking. She has had corticosteroid injections to various body parts with limited relief. Past Medical History/Problem List:Past Medical History:Diagnosis DateClass 1 obesity 3Controlled type 2 diabetes with neuropathy 10/30/2022epression, major, in partial remission 10/30/2022Fibromyalgia 10/30/2022Hypercholesterolemia 10/30/2022Hypothyroid 10/30/2022Malignant neoplasm of breast 06/15/2006Obsessive compulsive disorder 3Patient Active Problem ListDiagnosisFibromyalgiaClass 1 obesityControlled type 2 diabetes with neuropathyDepression, major, in partial remissionDiabetic peripheral neuropathyHypercholesterolemiaHypothyroidMal ignant neoplasm of breastObsessive compulsive disorderPsychotic disorder with delusionsMixed obsessional thoughts and actsPsychosis, unspecified psychosis typeDepression Allergies:AllergiesAllergen ReactionsOxycodone ItchingSocial History:Social HistoryTobacco UseSmoking status: NeverSmokeless tobacco: NeverSubstance Use TopicsAlcohol use: Not on fileReview of Systems: All relevant systems are reviewed and are negative except as described above and in HPI. Physical exam SIDE: LeftGENERAL: Patient examined in wheelchair.INSPECTION: Normal deltoid contour.PALPATION: No AC joint tenderness. No Bicipital Groove tendernessNECK EXAM: Approximately 50% normal cervical spine range of motion with positive Spurling's ACTIVE/PASSIVE ROM: Unable to perform any active range of motion. Significant limited passive range of motion secondary to pain and guardingROTATOR CUFF TESTING: Unable to assess Right ROM: She does not perform active range of motion. She tolerates passive range of motion with forward elevation to about 80 degrees and external rotation 5 degrees. Unable to assess rotator cuff strength, X-rays 2 views of right and left shoulder were ordered, obtained, reviewed today. Patient had limited mobility and complete series could not be obtained. X-rays bilateral shoulders demonstrate advanced osteoarthritis with complete loss of joint space. Impression 1. Bilateral shoulder advanced osteoarthritis 2. Cervical spine DJD Plan: Reviewed the diagnosis and treatment options with the patient and her cousin today. She has significantly limited range of motion bilateral shoulders. X-rays demonstrate advanced osteoarthritis. We discussed treatment options including therapy, anti-inflammatories, injections, and surgery: Reverse total shoulder arthroplasty. Patient would not be interested in any surgical intervention for this condition. She reports she has had injections in the past to her shoulders and other body parts which were unhelpful and she declined. She will be following up with her pain management provider tomorrow. Suggested she again consider evaluation with neurosurgeon or spine surgeon for her cervical spine symptoms. All questions answered today. Follow-up as needed. Juan Hunt MD [address], [place], [address] [place] [address] - [facility] 5 15:36:03 OBGyn Episode No OBEpisode recorded.
--- OUTSIDE RECORDS SUMMARY | 2024-08-15 06:11 | XMS_ITS | Patient Health Record ---
Demographics Address [address] [place] [address] Mobile Email Address Preferred Language en Marital Status Unknown Adventism Affiliation Unknown Race White Ethnic Group Unknown Author Organization [facility] Address [address] [facility] [address] [place] [address] Care Team Providers Care Audiology Doctor Name Role Phone CARYN CALABRESE Primary Care Provider Ángel Box Unavailable [phone] Herson Franco Unavailable [phone] Allergies Allergen (clinical drug ingredient) Drug/Non Drug Allergy documented on EMR Reaction Allergy Type Onset Date Status Adhesive Unknown Allergy Active codeine Codeine Unknown Drug Allergy Active Results Component Value Reference Range Notes Hemoglobin [id number] Reviewed date:12/12/2023 08:24:15 AM Interpretation: Performing Lab:[facility], [address] [facility], Phone - [phone], Director - Ruthy Notes/Report: Clinical Information:SRC: Hemoglobin A1c 7.5 4.8-5.6 % . Prediabetes: 5.7 - 6.4 Diabetes: >6.4 Glycemic control for adults with diabetes: <7.0 [id number] Reviewed date:12/12/2023 07:57:52 AM Interpretation: Performing Lab:[facility], [address] [facility], [place], Phone - [phone], Director - Ruthy Notes/Report: Clinical Information:SRC: Magnesium 1.6 1.6-2.3 mg/dL Basic Metabolic Panel [id number] Reviewed date:12/12/2023 08:24:30 AM Interpretation: Performing Lab:[facility], [address] [facility], [place], Phone - [phone], Director - Ruthy Notes/Report: Clinical Information:SRC: Glucose 160 70-99 mg/dL BUN 22 8-27 mg/dL Creatinine 1.09 0.57-1.00 mg/dL eGFR 53 >59 mL/min/1.73 BUN/Creatinine Ratio 20 12-28 Sodium 143 134-144 mmol/L Potassium 4.7 3.5-5.2 mmol/L Chloride 104 96-106 mmol/L Carbon Dioxide, Total 22 20-29 mmol/L Reason For Referral Reason Please evaluate and treat. Diagnosis 1 Gastro-esophageal re flux disease without esophagitis (K21.9) Diagnosis 2 Gastritis and duoden itis (K29.90) Referral Organization [facility] Referring Provider First Name CARYN Referring Provider Last Name BHARATI Referring Provider Speciality Internal edicine Referred Provider Specialty Gastroentero logy General Notes Referral faxed. Plea se call patient to schedule appointment.Danielle Shannon 06/11/2024 02:40:05 PM > Referral Priority Routine Reason Dr. Dez Inman an Diagnosis 1 Gastro-esophageal re flux disease with esophagitis, without bleeding (K21.00) Diagnosis 2 Gastritis and duoden itis (K29.90) Referral Organization [facility] Referring Provider First Name Ángel Referring Provider Last Name Isauro Referring Provider Speciality Internal edicine Referred Provider Specialty Gastroentero logy General Notes Referral faxed. Leenaa se call patient to schedule appointment.Danielle Shannon 06/12/2024 10:42:59 AM > Referral Priority Routine Reason shoulder pain plea se evaluate and treat Diagnosis 1 Pain in unspecified shoulder (M25.519) Referral Organization [facility] Referring Provider First Name Herson Referring Provider Last Name Salvador Referred Provider Specialty Orthopedic S urgery General Notes Referral was faxed t o [facility]. Please contact patient for scheduling.Dwayne Rashida 07/09/2024 04:51:57 PM > Referral Priority Routine Medications Medication SIG (Take, Route, Frequency, Duration) Notes Start Date End Date Status Fluocinolone Acetonide 0.025 % 1 application Externally Twice a day for 30 days 03/15/2024 Active BD Pen Needle Short U/F 31G X 8 MM use to inject insulin daily dx: E08.40 for 30 days 12/18/2023 Active OneTouch Ultra Blue - Use 2-3 [...] hours Externally Once a day 06/13/2023 Active Centrum Silver - as directed Orally Not-Taking LORazepam 0.5 MG 1 tablet Orally daily prn & [address] Gennaro Chow Active ZyrTEC Allergy 10 MG 1 tablet Orally Once a day Not-Taking Sucralfate 1 GM 1 tablet on an empty stomach Orally Twice a day for 30 days 02/10/2023 Not-Taking Colace 100 MG 1 capsule as needed Orally Once a day Active Aspirin Adult Low Dose 81 MG 1 tablet Orally Once a day Active Xyzal Allergy 24HR 5 MG 1 tablet in the evening Orally Once a day Active Fish Oil 1000 MG 1 capsule Orally Once a day Not-Taking Acetaminophen ER 650 MG 2 tablets as needed Orally every 8 hrs Active NexIUM 40 MG 1 capsule Orally Once a day for 30 days 02/10/2023 Not-Taking Lasix 20 MG 1 tablet Orally Once a day Active Latuda 20 MG 1 tablet in the evening with food Orally Once a day Not-Taking Omeprazole 40 MG 1 capsule 30 minutes before morning meal Orally Once a day Active Cymbalta 30 MG 1 capsule Orally 2 times a day 03/28/2023 Not-Taking Vitamin D3 50 MCG (1999 UT) 1 tablet Orally Once a day Active Gabapentin 400 MG TAKE 1 CAPSULE BY MOUTH 3 TIMES A DAY FOR 30 DAYS. for 30 Active Vitamin B6 100 MG 1 tablet Orally Once a day Active Diclofenac Sodium 75 MG 1 tablet Orally Twice a day for 30 days Not-Taking Pantoprazole Sodium 40 MG 1 tablet 1/2 to 1 hour before morning meal Orally Once a day for 30 days Active guaiFENesin 100 MG/5ML as directed Orally Not-Takin g Magnesium 400 MG 1 capsule Orally once a day for 30 days Active Fluocinolone Acetonide 0.025 % APPLY AM AND PM TO VAGINAL/ANAL AREA TWICE WEEKLY (MONDAY & MONDAY) FOR 2 WEEKS. THEN STARTING WEEK 3 USE AM & PM MONDAY, MONDAY, MONDAY UNTIL APPOINTMENT for 21 Active Ondansetron HCl 4 MG 1 tablet Orally twice a day for 15 days 05/22/2024 Active oxyCODONE HCl 5 MG 1 tablet as needed Orally twice a day for 7 days Partial Fill upon Patient Request 08/14/2024 Active Immunizations Vaccine Route Administration Date Status Comme nts COVID Moderna Unknown 05/29/2020 Administered COVID Moderna Unknown 06/26/2020 Administered COVID Moderna Unknown 02/28/2021 Administered Flu Unknown 01/16/2023 Administered Shingrix Unknown 06/11/2021 Administered Shingrix Unknown 09/13/2021 Administered Problems Problem Type SNOMED Code ICD Code Onset Dates Problem Status W/U Status Risk Notes Problem Hypothyroidism (70146733) Hypothyroidism, unspecified (E03.9) Active confirmed Problem Diabetic neuropathy (806147328) Diabetes mellitus due to underlying condition with diabetic neuropathy, unspecified (E08.40) Active confirmed Problem Secondary diabetes mellitus (5030214) Diabetes mellitus due to underlying condition with hyperglycemia (E08.65) Active confirmed Problem Mixed hyperlipidemia (947401883) Mixed hyperlipidemia (E78.2) Active confirmed Problem Schizoaffective disorder, depressive type (53925028) Schizoaffective disorder, depressive type (F25.1) Active confirmed Problem Moderate recurrent major depression (90705926) Major depressive disorder, recurrent, moderate (F33.1) Active confirmed Problem Generalized anxiety disorder (68282100) Generalized anxiety disorder (F41.1) Active confirmed Problem Hearing loss (38747111) Unspecified hearing loss, bilateral (H91.93) Active confirmed Problem Gastro-esophageal reflux disease without esophagitis (155005084) Gastro-esophageal reflux disease without esophagitis (K21.9) Active confirmed Problem Gastroduodenitis (543310774) Gastritis, unspecified, without bleeding (K29.70) Active confirmed Problem Duodenitis (86676127) Duodenitis without bleeding (K29.80) Active confirmed Problem Obstruction of duodenum (02826636) Obstruction of duodenum (K31.5) Active confirmed Problem Osteoarthritis (231646140) Polyosteoarthritis , unspecified (M15.9) Active confirmed Problem Cervical radiculopathy (61529278) Radiculopathy, cervical region (M54.12) Active confirmed Problem Chronic kidney disease (247734358) Chronic kidney disease, unspecified (N18.9) Active confirmed Problem Long-term current use of insulin (403095962) senior care (current) use of insulin (Z79.4) Active confirmed Problem Obsessive-compulsiv e disorder (615471112) Obsessive-compulsi ve disorder, unspecified (F42.9) Active confirmed Problem Amnesia (31306989) Complaints of memory disturbance (R41.3) Active confirmed Problem Gastroesophageal reflux disease with esophagitis (disorder) (546501775) Gastro-esophageal reflux disease with esophagitis, without bleeding (K21.00) Active confirmed Problem Gastritis and duodenitis (024487889) Gastritis and duodenitis (K29.90) Active confirmed Vital Signs Heart Rate 94 /min 08/14/2024 Temperature 97.0 degrees Fahrenheit 08/14/2024 Oximetry 97 % 08/14/2024 Blood pressure diastolic 78 mm Hg 08/14/2024 Height 5'0'' in 08/14/2024 Blood pressure systolic 120 mm Hg 08/14/2024 Weight 143.0 lbs 08/14/2024 BMI 27.92 kg/m2 08/14/2024 Encounters Encounter Location Date Provider Diagnosis [address] [address] 12/13/2023 CARYN CALABRESE Encounter for genera l adult medical examination without abnormal findings Z00.00 ; Diabetes mellitus due to underlying condition with diabetic neuropathy, unspecified E08.40 ; Mixed hyperlipidemia E78.2 ; Hypothyroidism, unspecified E03.9 ; Generalized anxiety disorder F41.1 and Chronic kidney disease, unspecified N18.[address] [address] 02/08/2024 Herson Franco Viral conjunctivitis , unspecified B30.[address] [address] 05/17/2024 [facility] discharge follow-up Z09 ; Schizoaffective disorder, depressive type F25.1 ; Generalized anxiety disorder F41.1 and Diabetes mellitus due to underlying condition with hyperglycemia E08.65 [facility] [address] [facility] [address] [place] [address] 06/11/2024 [place] [place] Schizoaffective disorder, depressive type F25.1 ; Hospital discharge follow-up Z09 ; Generalized anxiety disorder F41.1 ; Diabetes mellitus due to underlying condition with hyperglycemia E08.65 and Gastro-esophageal reflux disease with esophagitis, without bleeding K21.00 [facility] [address] [facility] [address] [place] [address] 06/27/2024 [place] [place] Schizoaffective disorder, depressive type F25.1 ; Hospital discharge follow-up Z09 ; Generalized anxiety disorder F41.1 ; Diabetes mellitus due to underlying condition with hyperglycemia E08.65 ; Gastro-esophageal reflux disease with esophagitis, without bleeding K21.00 and Obstruction of duodenum K31.[address] [place] [address] 08/14/2024 [facility] Radiculopathy, cervi tana region M54.12 ; Gastritis, unspecified, without bleeding K29.70 and Duodenitis without bleeding K29.[address] [place] [address] 08/25/[address] [place] [address] 08/30/[address] [place] [address] 08/31/[address] [place] [address] 08/31/[address] [place] [address] 10/09/[address] [place] [address] 10/23/[address] [place] [address] 10/24/2023 [facility] [address] [facility] [address] [place] [address] 10/25/2023 [facility] [address] [place] [address] 10/27/2023 [facility] [address] [place] [address] 12/06/2023 [facility] [address] [facility] [place] [address] 12/15/2023 [facility] [address] [facility] [place] [address] 01/02/2024 [facility] [address] [facility] [place] [address] 03/14/2024 Ghadeer Mazloum Pruritus vulvae L29. 2 [facility] [address] [place] [address] 04/03/2024 Ghadeer Mazloum Pain in unspecified shoulder M25.519 [facility] [address] [address] [place] [address] 04/03/2024 Ghadeer Mazloum Pain in unspecified shoulder M25.519 [facility] [address] [facility] [place] [address] 04/05/2024 RUBIN GUL Pain in unspecified shoulder M25.519 [facility] [address] [place] [address] 04/05/2024 [facility] [address] [place] [address] 05/22/2024 [facility] [address] [facility] [place] [address] 05/29/2024 [facility] [address] [facility] [place] [address] 05/30/2024 [facility] [address] [place] [address] 06/10/2024 [facility] [address] [place] [address] 06/18/2024 [facility] [address] [place] [address] 06/20/2024 [facility] [address] [place] [address] 06/21/[address] [place] [address] 07/08/2024 [facility] [address] [place] [address] 07/09/[address] [place] [address] 07/12/[address] [place] [address] 07/16/2024 Ghadeer Mazloum Pain in unspecified shoulder M25.[address] [place] [address] 07/17/2024 Ghadeer Mazloum Pain in unspecified shoulder M25.[address] [place] [address] 07/18/2024 [facility] [place] [address] 07/19/2024 Ghadeer Mazloum Pain in left shoulde r M25.512 and Pain in unspecified shoulder M25.[address] [place] [address] 07/22/2024 [facility] Assessments Encounter Date Diagnosis (ICD Code) Assessment Notes Treatment Notes Treatment Clinical Notes Section Notes 08/14/2024 Radiculopathy, cervical region (ICD-10 - M54.12) Ms. Steiner is 74 years old lady With insulin-dependent DM type II, hypertension, hyperlipidemia, hypothyroidism generalized anxiety disorder, acid reflux schizoaffective disorder who is here today for follow-up. Cervical radiculopathy. She is currently going to pain management at [facility] and she will have intra-articular/inte rfacet injection and she also has appointment with neurosurgery at [facility] on September 17 Dr. Louis. She was recently diagnosed with gastritis and duodenal ulcers which led to strictures and she is being evaluated by surgery. She complains of significant pain and discomfort. She cannot take NSAIDs. We will give her oxycodone 5 mg 1 tablet twice a day and she is given a limited supply for 7 days. Side effects of the medications explained. Advised to take medications as directed and take it sparingly. She can take Tylenol as needed. Gastritis/duodenitis . Multiple upper endoscopies for stricture and dilation. Significant scar tissue most likely from ulcer secondary to NSAID use for long time. She is evaluated by GI surgery at [facility] at this point. She is on PPIs and he does not have any GI symptoms 07/17/2024 Pain in unspecified shoulder (ICD-10 - M25.519) 07/16/2024 Pain in unspecified shoulder (ICD-10 - M25.519) 08/14/2024 Gastritis, unspecified, without bleeding (ICD-10 - K29.70) Ms. Steiner is 74 years old lady With insulin-dependent DM type II, hypertension, hyperlipidemia, hypothyroidism generalized anxiety disorder, acid reflux schizoaffective disorder who is here today for follow-up. Cervical radiculopathy. She is currently going to pain management at [facility] and she will have intra-articular/inte rfacet injection and she also has appointment with neurosurgery at [facility] on September 17 Dr[address] Louis. She was recently diagnosed with gastritis and duodenal ulcers which led to strictures and she is being evaluated by surgery. She complains of significant pain and discomfort. She cannot take NSAIDs. We will give her oxycodone 5 mg 1 tablet twice a day and she is given a limited supply for 7 days. Side effects of the medications explained. Advised to take medications as directed and take it sparingly. She can take Tylenol as needed. Gastritis/duodenitis . Multiple upper endoscopies for stricture and dilation. Significant scar tissue most likely from ulcer secondary to NSAID use for long time. She is evaluated by GI surgery at [facility] at this point. She is on PPIs and he does not have any GI symptoms 06/27/2024 Schizoaffective disorder, depressive type (ICD-10 - F25.1) 74 years old lady With insulin-dependent DM type II, hypertension, hyperlipidemia, hypothyroidism generalized anxiety disorder, acid reflux schizoaffective disorder who was admitted to [facility] and was discharged on 06/25/24. Post discharge Hospital follow-up 2days days she is feeling much better, she was diagnosed with Severe hypomagnesemia, CT imaging showed duodenal stricture. Status post 2 unsuccessful attempts of duodenal dilatation. [employer] Dr. Russo is planning to do another [...] reflux schizoaffective disorder who was admitted to [facility] and was discharged on 06/25/24. Post discharge Hospital follow-up 2days days she is feeling much better, she was diagnosed with Severe hypomagnesemia, CT imaging showed duodenal stricture. Status post 2 unsuccessful attempts of duodenal dilatation. [employer] Dr. Russo is planning to do another [...] was present in the room today 12/13/2023 Encounter for general adult medical examination [...] months. Continue current regimen. She is seen timber spotter and podiatry in the past 1 year. [...] She is up-to-date on health specific screening 04/05/2024 Pain in unspecified shoulder (ICD-10 - M25.519) 04/03/2024 Pain in unspecified shoulder (ICD-10 - M25.519) 04/03/2024 Pain in unspecified shoulder (ICD-10 - M25.519) CancelRx Response got Denied on 2024-08-02 10:49:48 for 'traMADol HCl 25 MG Tablet'Pharmac y Notes: Prescription not found. Contact Pharmacy by other means 03/14/2024 Pruritus vulvae (ICD-10 - L29.2) 02/08/2024 Viral conjunctivitis, unspecified (ICD-10 - B30.9) Ms. Steiner is 73 years old lady With insulin-dependent DM type II, hypertension, hyperlipidemia, hypothyroidism generalized anxiety disorder, acid reflux Is here for pink eye. plan as follows: Viral Conjunctivitis: - Started today with watery tears. No purulent drainage is noted. Advised patient on taking Ketotifen [id number] eyedrop. She can also start taking partial tears for dry eyes. She can also use warm compresses. I have rendered the services for this patient under direct supervision of Dr. Calabrese, who did not see the patient but was available upon request 07/19/2024 Pain in left shoulder (ICD-10 - M25.512) 06/11/2024 Schizoaffective disorder, depressive type (ICD-10 - F25.1) 74 years old lady With insulin-dependent DM type II, hypertension, hyperlipidemia, hypothyroidism generalized anxiety disorder, acid reflux schizoaffective disorder who was admitted to [facility] for acute cholecystitis status post cholecystectomy readmitted for nausea vomiting epigastric pain and dehydration and is here today for a follow-up visit.I reviewed all the reports lab work procedure notes from [facility] discharge paperwork and discussed it with the [...] reflux schizoaffective disorder who was admitted to [facility] for acute cholecystitis status post cholecystectomy readmitted for nausea vomiting epigastric pain and dehydration and is here today for a follow-up visit.I reviewed all the reports lab work procedure notes from [facility] discharge paperwork and discussed it with the [...] paperwork for getting an independent/assisted living. 05/17/2024 Schizoaffective disorder, depressive type (ICD-10 - F25.1) 74 years old lady With insulin-dependent DM type II, hypertension, hyperlipidemia, hypothyroidism generalized anxiety disorder, acid reflux schizoaffective disorder who was seen in the [place] emergency room on a 05/15 24 for extreme fatigue weakness and then went to [facility] on 05/16/24 for the same complaints is here for posthospital discharge follow-up. Post discharge Hospital follow-up 7 days fatigue weakness poor appetite due to dehydration possible withdrawal from abruptly stopping Cymbalta, in increased dose of Latuda and then discontinuing Latuda completely All lab work has been unremarkable no evidence of any infection notes from [facility] has been reviewed. Discussed at length [...] schizoaffective disorder who was seen in the [place] emergency room on a 05/15 24 for extreme fatigue weakness and then went to [facility] on 05/16/24 for the same complaints is here for posthospital discharge follow-up. Post discharge Hospital follow-up 7 days fatigue weakness poor appetite due to dehydration possible withdrawal from abruptly stopping Cymbalta, in increased dose of Latuda and then discontinuing Latuda completely All lab work has been unremarkable no evidence of any infection notes from [facility] and [facility] has been reviewed. Discussed at length with [...] schizoaffective disorder who was seen in the [place] emergency room on a 05/15 24 for extreme fatigue weakness and then went to [facility] on 05/16/24 for the same complaints is here for posthospital discharge follow-up. Post discharge Hospital follow-up 7 days fatigue weakness poor appetite due to dehydration possible withdrawal from abruptly stopping Cymbalta, in increased dose of Latuda and then discontinuing Latuda completely All lab work has been unremarkable no evidence of any infection notes from [facility] and [facility] has been reviewed. Discussed at length with [...] reflux schizoaffective disorder who was admitted to [facility] for acute cholecystitis status post cholecystectomy readmitted for nausea vomiting epigastric pain and dehydration and is here today for a follow-up visit.I reviewed all the reports lab work procedure notes from [facility] discharge paperwork and discussed it with the [...] requesting paperwork for getting an independent/assisted living. 07/19/2024 Pain in unspecified shoulder (ICD-10 - M25.519) 12/13/2023 Diabetes mellitus due to underlying condition [...] months. Continue current regimen. She is seen timber spotter and podiatry in the past 1 year. [...] is up-to-date on health specific screening 06/27/2024 Generalized anxiety disorder (ICD-10 - F41.1) 74 years old lady With insulin-dependent DM type II, hypertension, hyperlipidemia, hypothyroidism generalized anxiety disorder, acid reflux schizoaffective disorder who was admitted to [facility] and was discharged on 06/25/24. Post discharge Hospital follow-up 2days days she is feeling much better, she was diagnosed with Severe hypomagnesemia, CT imaging showed duodenal stricture. Status post 2 unsuccessful attempts of duodenal dilatation. [employer] Dr. Russo is planning to do another [...] family was present in the room today 08/14/2024 Duodenitis without bleeding (ICD-10 - K29.80) Ms. Steiner is 74 years old lady With insulin-dependent DM type II, hypertension, hyperlipidemia, hypothyroidism generalized anxiety disorder, acid reflux schizoaffective disorder who is here today for follow-up. Cervical radiculopathy. She is currently going to pain management at [facility] and she will have intra-articular/inte rfacet injection and she also has appointment with neurosurgery at [facility] on September 17 [address] Louis. She was recently diagnosed with gastritis and duodenal ulcers which led to strictures and she is being evaluated by surgery. She complains of significant pain and discomfort. She cannot take NSAIDs. We will give her oxycodone 5 mg 1 tablet twice a day and she is given a limited supply for 7 days. Side effects of the medications explained. Advised to take medications as directed and take it sparingly. She can take Tylenol as needed. Gastritis/duodenitis . Multiple upper endoscopies for stricture and dilation. Significant scar tissue most likely from ulcer secondary to NSAID use for long time. She is evaluated by GI surgery at [facility] at this point. She is on PPIs and he does not have any GI symptoms 06/27/2024 Diabetes mellitus due to underlying condition with hyperglycemia (ICD-10 - E08.65) 74 years old lady With insulin-dependent DM type II, hypertension, hyperlipidemia, hypothyroidism generalized anxiety disorder, acid reflux schizoaffective disorder who was admitted to [facility] and was discharged on 06/25/24. Post discharge Hospital follow-up 2days days she is feeling much better, she was diagnosed with Severe hypomagnesemia, CT imaging showed duodenal stricture. Status post 2 unsuccessful attempts of duodenal dilatation. [employer] Dr. Russo is planning to do another [...] was present in the room today 12/13/2023 Mixed hyperlipidemia (ICD-10 - E78.2) Lizzette [...] months. Continue current regimen. She is seen timber spotter and podiatry in the past 1 year. [...] She is up-to-date on health specific screening 06/11/2024 Diabetes mellitus due to underlying condition with hyperglycemia (ICD-10 - E08.65) 74 years old lady With insulin-dependent DM type II, hypertension, hyperlipidemia, hypothyroidism generalized anxiety disorder, acid reflux schizoaffective disorder who was admitted to [facility] for acute cholecystitis status post cholecystectomy readmitted for nausea vomiting epigastric pain and dehydration and is here today for a follow-up visit.I reviewed all the reports lab work procedure notes from [facility] discharge paperwork and discussed it with the [...] paperwork for getting an independent/assisted living. 05/17/2024 Diabetes mellitus due to underlying condition with hyperglycemia (ICD-10 - E08.65) 74 years old lady With insulin-dependent DM type II, hypertension, hyperlipidemia, hypothyroidism generalized anxiety disorder, acid reflux schizoaffective disorder who was seen in the [place] emergency room on a 05/15 24 for extreme fatigue weakness and then went to [facility] on 05/16/24 for the same complaints is here for posthospital discharge follow-up. Post discharge Hospital follow-up 7 days fatigue weakness poor appetite due to dehydration possible withdrawal from abruptly stopping Cymbalta, in increased dose of Latuda and then discontinuing Latuda completely All lab work has been unremarkable no evidence of any infection notes from [facility] has been reviewed. Discussed at length [...] reflux schizoaffective disorder who was admitted to [facility] for acute cholecystitis status post cholecystectomy readmitted for nausea vomiting epigastric pain and dehydration and is here today for a follow-up visit.I reviewed all the reports lab work procedure notes from [facility] discharge paperwork and discussed it with the [...] paperwork for getting an independent/assisted living. 06/27/2024 Gastro-esophageal reflux disease with esophagitis, without bleeding (ICD-10 - K21.00) 74 years old lady With insulin-dependent DM type II, hypertension, hyperlipidemia, hypothyroidism generalized anxiety disorder, acid reflux schizoaffective disorder who was admitted to [facility] and was discharged on 06/25/24. Post discharge Hospital follow-up 2days days she is feeling much better, she was diagnosed with Severe hypomagnesemia, CT imaging showed duodenal stricture. Status post 2 unsuccessful attempts of duodenal dilatation. [employer] Dr. Russo is planning to do another [...] was present in the room today 12/13/2023 Hypothyroidism, unspecified (ICD-10 - E03.9) Lizzette [...] months. Continue current regimen. She is seen timber spotter and podiatry in the past 1 year. [...] months. Continue current regimen. She is seen timber spotter and podiatry in the past 1 year. [...] reflux schizoaffective disorder who was admitted to [facility] and was discharged on 06/25/24. Post discharge Hospital follow-up 2days days she is feeling much better, she was diagnosed with Severe hypomagnesemia, CT imaging showed duodenal stricture. Status post 2 unsuccessful attempts of duodenal dilatation. [employer] Dr. Russo is planning to do another [...] months. Continue current regimen. She is seen timber spotter and podiatry in the past 1 year. [...] Future Test Test Name Order Date Hemoglobin [id number] 12/13/2023 Albumin/Creatinine Ratio,[id number] Lipid [id number] 12/13/2023 Comp. Metabolic Panel [id number] 2023 TSH+Free T4 12/13/2023 Next Appt Details Provider Name:CARYN TRACYLogan , 11/14/2024 01:30:00 PM, [address] [place] [address], [phone], Insurance Providers Payer Name Payer Address Payer Phone Subscriber Number Group Number Insured Name Patient Relationship to Insured Coverage Start Date Coverage End Date Medicare [address] [place] [address] [id number] Lizzette Steiner Self - patient is the insured 9 [id number] [facility] [address] [place] [address] [id number] Lizzette tSeiner Self - patient is the insured Medical (General) History Medical History History ICD Code CATIE/MDD see Dr Le Psy OCD Hyperlipidemia fdc use of insulin/DM with diabeti c neuropathy GERD hypothyroidism history of suicide attempt in the past a nd hospitalizations status post cholecystectomy June 2024 a t [facility] Gastritis/duodenitis cervical radiculopathy Surgical History Surgery Date(Month/Year) Right Mastectomy because Cancer and s/p Chemo in 2005
--- OUTSIDE RECORDS SUMMARY | 2024-08-15 06:11 | XMS_ITS | Clinical Summary ---
Demographics Address [address] [place] [address] Home Phone Email Address Preferred Language Yi Marital Status Orthodoxy Affiliation Unknown Race White Ethnic Group Not or Lati no Author Organization [facility] Address [address] [place] [id number] Support Name Relationship Address Phone Rigo Steiner Emergency Contact [address] [facility] [place] [address] Care Team Providers Care Business Job Titles Name Role Phone Obi Miller MD Primary Care Provider [phone] Allergies Active Allergy Reactions Criticality Noted Date [...] Lizzette Steiner Personal/Family Self 1950 [address] [place] [address] Care Teams Business Job Titles Relationship Specialty Start Date End Date Obi Miller MD [address] [place] [id number] PCP - General Internal Medicine 01/31/18
--- OUTSIDE RECORDS SUMMARY | 2024-08-15 06:11 | XMS_ITS ---
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 Generated for Ruthi nancy/Charis/eTransmitting on:?08/15/2024 06:10 AM EDT
--- OUTSIDE RECORDS SUMMARY | 2024-08-15 06:11 | XMS_ITS ---
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 Name Role Phone CARYN CALABRESE Primary Care Provider Allergies Allergen (clinical drug ingredient) Drug/Non Drug Allergy documented on EMR Reaction Allergy Type Onset Date Status Adhesive Unknown Allergy Active codeine Codeine Unknown Drug Allergy Active REASON FOR VISIT Medication Management Medications Medication SIG (Take, Route, Frequency, Duration) Notes Start Date End Date Status Latuda 20 MG 1 tablet in the evening with food Orally Once a day Not-Taking Cymbalta 30 MG 1 capsule Orally 2 times a day 03/28/2023 Not-Taking Gabapentin 400 MG TAKE 1 CAPSULE BY MOUTH 3 TIMES A DAY FOR 30 DAYS. for 30 Active Diclofenac Sodium 75 MG 1 tablet Orally Twice a day for 30 days Not-Taking Magnesium 400 MG 1 capsule Orally once a day for 30 days Active Fluocinolone Acetonide 0.025 % 1 application Externally Twice a day for 30 days 03/15/2024 Active OneTouch Ultra Blue - Use 2-3 times a da y In Vitro for 90 days 10/27/2023 Active Pantoprazole Sodium 40 MG 1 tablet 1/2 to 1 hour before morning meal Orally Once a day for 30 days Active Fluocinolone Acetonide 0.025 % APPLY AM AND PM TO VAGINAL/ANAL AREA TWICE WEEKLY (MONDAY & MONDAY) FOR 2 WEEKS. THEN STARTING WEEK 3 USE AM & PM MONDAY, MONDAY, MONDAY UNTIL APPOINTMENT for 21 Active Ondansetron HCl 4 MG 1 tablet Orally twice a day for 15 days 05/22/2024 Active BD Pen Needle Short U/F 31G [...] once a day for 30 days Active Colace 100 MG 1 capsule as needed Orally Once a day Active Aspirin Adult Low Dose 81 MG 1 tablet Orally Once a day Active hydrOXYzine HCl 25 MG 1 tablet as needed Orally Once a day for 30 days Active Lidoderm 5 % 1 patch remove after 12 hours Externally Once a day 06/13/2023 Active LORazepam 0.5 MG 1 tablet Orally daily prn & [address] Gennaro Chow Active Xyzal Allergy 24HR 5 MG 1 tablet in the evening Orally Once a day Active Acetaminophen ER 650 MG 2 tablets as needed Orally every 8 hrs Active Lasix 20 MG 1 tablet Orally Once a day Active Omeprazole 40 MG 1 capsule 30 minutes before morning meal Orally Once a day Active Vitamin B6 100 MG 1 tablet Orally Once a day Active oxyCODONE HCl 5 MG 1 tablet as needed Orally twice a day for 7 days Partial Fill upon Patient Request 08/14/2024 Active Vitamin D3 50 MCG (1999 UT) 1 tablet Orally Once a day Active guaiFENesin 100 MG/5ML as directed Orally Not-Takin g ZyrTEC Allergy 10 MG 1 tablet Orally Once a day Not-Taking Sucralfate 1 GM 1 tablet on an empty stomach Orally Twice a day for 30 days 02/10/2023 Not-Taking Fish Oil 1000 MG 1 capsule Orally Once a day Not-Taking NexIUM 40 MG 1 capsule Orally Once a day for 30 days 02/10/2023 Not-Taking Centrum Silver - as directed Orally Not-Taking Problems Problem Type SNOMED Code ICD Code Onset Dates Problem Status W/U Status Risk Notes Problem Cervical radiculopathy (07386728) Radiculopathy, cervical region (M54.12) Active confirmed Problem Gastroduodenitis (785003151) Gastritis, unspecified, without bleeding (K29.70) Active confirmed Problem Duodenitis (28937007) Duodenitis without bleeding (K29.80) Active confirmed Vital Signs Temperature 97.0 degrees Fahrenheit 08/15/19 25 Oximetry 97 % 08/14/2024 Heart Rate 94 /min 08/14/2024 Blood pressure systolic 120 mm Hg 08/15/19 25 Blood pressure diastolic 78 mm Hg 025 Weight 143.0 lbs 08/14/2024 BMI 27.92 kg/m2 08/14/2024 Height 5'0'' in 08/14/2024 Encounters Encounter Location Date Provider Diagnosis [facility] [address] [facility] [address] [place] [address] 08/14/2024 RUBIN GUL Radiculopathy, cervical region M54.12 ; Gastritis, unspecified, without bleeding K29.70 and Duodenitis without bleeding K29.80 Assessments Encounter Date Diagnosis (ICD Code) Assessment Notes Treatment Notes Treatment Clinical Notes Section Notes 08/14/2024 Radiculopathy, cervical region (ICD-10 - M54.12) Ms. Mosquera is 74 years old lady With insulin-dependent DM type II, hypertension, hyperlipidemia, hypothyroidism generalized anxiety disorder, acid reflux schizoaffective disorder who is here today for follow-up. Cervical radiculopathy. She is currently going to pain management at [facility] and she will have intra-articular/in terfacet injection and she also has appointment with neurosurgery at [facility] on September 17 Dr[address] Louis. She was [...] sparingly. She can take Tylenol as needed. Gastritis/duodenit is. Multiple upper endoscopies for stricture and dilation. Significant scar tissue most likely from ulcer secondary to NSAID use for long time. She is evaluated by GI surgery at [facility] at this point. She is on PPIs and he does not have any GI symptoms 08/14/2024 Gastritis, unspecified, without bleeding (ICD-10 - K29.70) Ms. Mosquera is 74 years old lady With insulin-dependent DM type II, hypertension, hyperlipidemia, hypothyroidism generalized anxiety disorder, acid reflux schizoaffective disorder who is here today for follow-up. Cervical radiculopathy. She is currently going to pain management at [facility] and she will have intra-articular/in terfacet injection and she also has appointment with neurosurgery at [facility] on September 17 Dr[address] Louis. She was [...] sparingly. She can take Tylenol as needed. Gastritis/duodenit is. Multiple upper endoscopies for stricture and dilation. Significant scar tissue most likely from ulcer secondary to NSAID use for long time. She is evaluated by GI surgery at [facility] at this point. She is on PPIs and he does not have any GI symptoms 08/14/2024 Duodenitis without bleeding (ICD-10 - K29.80) Ms. Mosquera is 74 years old lady With insulin-dependent DM type II, hypertension, hyperlipidemia, hypothyroidism generalized anxiety disorder, acid reflux schizoaffective disorder who is here today for follow-up. Cervical radiculopathy. She is currently going to pain management at [facility] and she will have intra-articular/in terfacet injection and she also has appointment with neurosurgery at [facility] on September 17 Dr[address] Louis. She was [...] sparingly. She can take Tylenol as needed. Gastritis/duodenit is. Multiple upper endoscopies for stricture and dilation. Significant scar tissue most likely from ulcer secondary to NSAID use for long time. She is evaluated by GI surgery at [facility] at this point. She is on PPIs and he does not have any GI symptoms Plan Of Treatment Medication Medication Name Sig Start Date Stop Date Notes oxyCODONE HCl 5 MG 1 tablet as needed Orally twice a day for 7 days 08/14/2024 Partial Fill upon Patient Request Next Appt Details Follow Up: 3 Months, Reason: Provider Name:CARYN CALABRESE , 11/14/2024 01:30:00 PM, [address] [place] [address], [phone], Progress Notes * Pete MOSQUERAaDOB:[birth year] (74 yo F)Acc No.[id number]:08/14/2024 Patient:?Lizzette MOSQUERA Provider:?CARYN CALABRESE MD :1950???Age:74 Y???Sex:Female D ate:08/14/2024 Address[address] [facility] Subjective: * Chief Complaints: * ???Medication Management * HPI: ???Internal Medicine:?Ms. Mosquera is 74? years old lady With insulin-dependent DM type II, hypertension, hyperlipidemia, hypothyroidism generalized anxiety disorder, acid reflux? schizoaffective disorder who is here today for follow-up.? She was in hospital at [facility] in June 2024?where she had cholecystectomy and she was diagnosed with gastritis and duodenitis.? There was also stricture formation most likely from ulcers because she has been taking NSAIDs for a long time.? She is being evaluated for surgery.? Today she also complained of significant neck pain which travels down bilateral upper extremities.? She has been using Tylenol and has also used tramadol in the past which did not help.? Unfortunately she cannot take NSAIDs.? She was given oxycodone in the hospital which helped and she is requesting pain medications.? She is going to pain management at [facility] and she also has appointment with neurosurgery on September [address] Dr[address] Louis at [facility].? She is following up with her psychiatrist on a regular basis. * ROS:?General/Constitutional:?Patient denies?feeling better since hospital discharge [...] Use 2-3 times a day In Vitro Fluocinolone Acetonide 0.025 % Cream 1 application Externally Twice a day Fluocinolone Acetonide 0.025 % Ointment APPLY AM AND PM TO VAGINAL/ANAL AREA TWICE WEEKLY (MONDAY & MONDAY) FOR 2 WEEKS. THEN STARTING WEEK 3 USE AM & PM MONDAY, MONDAY, MONDAY UNTIL APPOINTMENT Ondansetron HCl 4 MG Tablet 1 tablet Orally twice a day Pantoprazole Sodium 40 MG Tablet Delayed Release 1 tablet 1/2 to 1 hour before morning meal Orally Once a day Magnesium 400 MG Tablet 1 capsule Orally once a day Gabapentin 400 MG Capsule TAKE 1 CAPSULE BY MOUTH 3 TIMES A DAY FOR 30 DAYS. Taking Vitamin D3 50 MCG (2000 UT) [...] 2-3 times a day In Vitro Taking Fluocinolone Acetonide 0.025 % Cream 1 application Externally Twice a day Taking Fluocinolone Acetonide 0.025 % Ointment APPLY AM AND PM TO VAGINAL/ANAL AREA TWICE WEEKLY (MONDAY & MONDAY) FOR 2 WEEKS. THEN STARTING WEEK 3 USE AM & PM MONDAY, MONDAY, MONDAY UNTIL APPOINTMENT Taking Ondansetron HCl 4 MG Tablet 1 tablet Orally twice a day Taking Pantoprazole Sodium 40 MG Tablet Delayed Release 1 tablet 1/2 to 1 hour before morning meal Orally Once a day Taking Magnesium 400 MG Tablet 1 capsule Orally once a day Taking Gabapentin 400 MG Capsule TAKE 1 CAPSULE BY MOUTH 3 TIMES A DAY FOR 30 DAYS. Not-TakingguaiFENesin 100 MG/5ML Liquid as directed Orally Diclofenac Sodium 75 MG Tablet Delayed Release 1 tablet Orally Twice a day Latuda 20 MG Tablet 1 tablet in [...] Tablet 1 tablet Orally Once a day Not-Taking guaiFENesin 100 MG/5ML Liquid as directed Orally Not-Taking Diclofenac Sodium 75 MG Tablet Delayed Release 1 tablet Orally Twice a day Not-Taking Latuda 20 MG Tablet 1 tablet in [...] Tablet 1 tablet Orally Once a day DiscontinuedtraMADol HCl 50 MG Tablet 1/2 tablet as needed Orally Once a day Medication List reviewed and reconciled with the patientDiscontinued traMADol HCl 50 MG Tablet 1/2 tablet as needed Orally Once a day Medication List reviewed and reconciled with the patient * Allergies:?Codeine: AllergyA dhesive: Allergy Objective: * Vitals:?Temp:97.0F, Oxygen s at %:97%, HR:94/min, BP:120/78mm Hg, Wt:143.0lbs, BMI:27.92Index, Ht: 5'0''. * Examination: ???General Examination: ?Psychiatry?Normal.?GENERAL APPEARANCE:?Well developed, well nourished, in no acute distress.?MUSCULOSKELETAL:?, normal.?HEAD:?Normocephalic, atraumatic.?EYES:?Pupils equal, round, reactive to light and accommodation, sclera non-icteric,.?EARS:?Normal.?ORAL CAVITY:?Normal.?THROAT:?Clear.?OROPHARYNX?Normal.?SINUSES?Normal.?NECK/THYROID:?Neck supple, full range of motion, no cervical lymphadenopathy.?SKIN:?Warm and dry, no suspicious lesions.?HEART:?S1, S2 normal regular rate and rhythm no murmurs, rubs, gallops .?LUNGS:?clear anteriorly and posteriorly good air movement no wheezes, rales, rhonchi .?BREASTS:?__.?ABDOMEN:?Soft, nontender, nondistended, bowel sounds present, normal.?EXTREMITIES:?heberden's nodes.?PERIPHERAL PULSES:?Normal.?NEUROLOGIC:?Nonfocal,? appropriate?motor strength normal upper and lower extremities, sensory exam intact.?FEMALE GENITOURINARY:?__.?MALE GENITOURINARY:?__.?PODIATRIC:?Normal.?Inseamer? .? Assessment: * Assessment: 1.?Radiculopathy, cervical r egion - M54.12 (Primary)???2.?Gastritis, unspecified, without bleeding - K29.70???3.?Duodenitis without bleeding - K29.80??? Ms. Mosquera is 74? years ol d lady With insulin-dependent DM type II, hypertension, hyperlipidemia, hypothyroidism generalized anxiety disorder, acid reflux? schizoaffective disorder who is here today for follow-up. Cervical radiculopathy.? She is currently going to pain management at [facility] and she will have intra-articular/interfacet injection and she also has appointment with neurosurgery at [facility] on September 17 [address] Louis.? She was recently diagnosed with gastritis and duodenal ulcers which led to strictures and she is being evaluated by surgery.? She complains of significant pain and discomfort.? She cannot take NSAIDs.? We will give her oxycodone 5 mg 1 tablet twice a day and she is given a limited supply for 7 days.? Side effects of the medications explained.? Advised to take medications as directed and take it sparingly.? She can take Tylenol as needed. Gastritis/duodenitis.? Multiple upper endoscopies for stricture and dilation.? Significant scar tissue most likely from ulcer secondary to NSAID use for long time.? She is evaluated by GI surgery at [facility] at this point.? She is on PPIs and he does not have any GI symptoms Plan: * Treatment: * Procedure Codes:? * Follow Up:?3 Months * Images: * Sign off status: Completed true * Provider:?CARYN CALABRESE MD Date:?08/14 Generated for Royer cruz/Charis/eTransmitting on:?08/15/2024 06:10 AM EDT History and Physical Notes * HPI (History of Present Illness) Category Sub-Category Detail Notes Category Not es Internal Medicine Ms. Neil keane is 74 years old lady With insulin-dependent DM type II, hypertension, hyperlipidemia, hypothyroidism generalized anxiety disorder, acid reflux schizoaffective disorder who is here today for follow-up. She was in hospital at [facility] in June 2024 where she had cholecystectomy and she was diagnosed with gastritis and duodenitis. There was also stricture formation most likely from ulcers because she has been taking NSAIDs for a long time. She is being evaluated for surgery. Today she also complained of significant neck pain which travels down bilateral upper extremities. She has been using Tylenol and has also used tramadol in the past which did not help. Unfortunately she cannot take NSAIDs. She was given oxycodone in the hospital which helped and she is requesting pain medications. She is going to pain management at [facility] and she also has appointment with neurosurgery on September [address] Dr[address] Louis at [facility]. She is following up with her psychiatrist on a regular basis. Examination Category Sub-Category Detail Notes Category Not es General Examination GENERAL APPEARANCE: Well dev eloped, well nourished, in no acute distress HEAD: Normocephalic, atrau matic EYES: Pupils equal, round, reactive to light and accommodation, sclera non-icteric, EARS: Normal THROAT: Clear NECK/THYROID: Neck supple, full ra nge of motion, no cervical lymphadenopathy HEART: S1, S2 normal regula r rate and rhythm no murmurs, rubs, gallops LUNGS: clear anteriorly and posteriorly good air movement no wheezes, rales, rhonchi ABDOMEN: Soft, nontender, non distended, bowel sounds present, normal NEUROLOGIC: Nonfocal, appropriat e motor strength normal upper and lower extremities, sensory exam intact SKIN: Warm and dry, no ina picious lesions EXTREMITIES: heberden's nodes PERIPHERAL PULSES: Normal BREASTS: __ MUSCULOSKELETAL: , normal MALE GENITOURINARY: __ FEMALE GENITOURINARY: __ ORAL CAVITY: Normal PODIATRIC: Normal Psychiatry Normal OROPHARYNX Normal SINUSES Normal Inseamer
== END 2024-08-15 06:08 | disposition home or self-care (01) ==
LOC: CF 06:07
PROVIDERS: Visit Provider Internal Medicine
DX: M46.92 Unspecified inflammatory spondylopathy, cervical region (principal); M54.12 Radiculopathy, cervical region
CPT/HCPCS: 62321; J1100; J2003; Q9967

== ENCOUNTER 2024-08-15 08:58 | Outpatient (AMB) | payer MEDICARE, OTHER, SELFPAY ==
[2024-08-15 09:12] VITALS: BP 124/78; PULSE 80; RESP 16; O2SAT 98
--- NOTE | 2024-08-15 09:12 | A.OFFVIS_ITS ---
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 bupropion [From Wellbutrin] Allergy (Intermediate, Verified 08/15/24 09:12) Rash codeine [Codeine] Allergy (Intermediate, Verified 08/15/24 09:12) Nausea and Vomiting escitalopram Allergy (Intermediate, Verified 08/15/24 09:12) lethargy NSAIDS (Non-Steroidal Anti-Inflamma Allergy (Intermediate, Verified 08/15/24 09:12) Swelling oxycodone [From OxyContin] Allergy (Intermediate, Verified 08/15/24 09:12) Itching pregabalin Allergy (Intermediate, Verified 08/15/24 09:12) Confusion rosuvastatin [Crestor] Adverse Reaction (Intermediate, Verified 08/15/24 09:12) joint pain Medication List - Last Reconciled 08/15/24 by Aliyah Lopez LPN acetaminophen 650 mg (2 x 325 mg) PO Q6H PRN aspirin (Adult Aspirin Regimen) 81 mg PO BEDTIME biotin 1 mg PO DAILY blood sugar diagnostic (OneTouch Ultra Test strips) check BS 2-3x/day blood sugar diagnostic (OneTouch Ultra Test strips) As directed docusate sodium (Colace) 100 mg PO DAILY esomeprazole magnesium DR (Nexium Packet) 20 mg PO DAILY furosemide 20 mg PO DAILY PRN gabapentin 400 mg PO TID 30 days hydroxyzine pamoate 25 mg PO BID PRN insulin glargine (Basaglar KwikPen U-100 Insulin) 46 units subcut DAILY ipratropium bromide 2 sprays intranasal QID PRN levocetirizine (Xyzal) 5 mg PO BID levothyroxine 125 mcg PO DAILY@0630 lorazepam 0.5 mg PO BEDTIME PRN magnesium oxide 400 mg PO DAILY pantoprazole (Protonix) 40 mg PO DAILY@0630 pyridoxine (vitamin B6) 100 mg PO DAILY 90 days simvastatin 40 mg PO BEDTIME vitamin B complex 1 cap PO DAILY HPI HPI C6-C7 interlaminar ELIZABETH: Details: Patient presents for scheduled procedure. Denies any recent cough, cold, infection, fever or other significant changes in medical history since last office visit. [facility] Medical History (Updated 07/30/24 @ 13:20 by Jennifer Rogers RN) Duodenal stricture Duodenitis Bilateral cataracts Schizoaffective disorder Confusion Skin rash Vitamin D deficiency HTN (hypertension) HLD (hyperlipidemia) Cellulitis of leg, left Urinary urgency Arthralgia of shoulder region, left Cervical spondylitis with radiculitis Myofascial pain on left side Depression OCD (obsessive compulsive disorder) DJD (degenerative joint disease) SI (sacroiliac) joint dysfunction Fibromyalgia GERD (gastroesophageal reflux disease) Neuropathy Diabetes Surgical History (Updated 07/30/24 @ 13:19 by Jennifer Rogers RN) History of esophagogastroduodenoscopy (EGD) History of laparoscopic cholecystectomy (~05/24/24) H/O mastectomy Hx of appendectomy H/O exploratory laparotomy History of surgery Family History Father No problems noted. Mother No problems noted. Social History Household Members: Spouse Household Members Other:: 1 Housing: House Are you a primary patient care technician instructor to a significant other at home: No Do you presently have visiting nurse or other home services: Yes ([facility]) Alcohol intake: former Comment: uses cane and walker at home Patient Tobacco Use Status: Never used Tobacco Tobacco use type: Cigarette e-Cigarette/Vaping Use: Never Used Second Hand Smoke Exposure: No Advance Directives Date on File: 06/01/24 service: No Current occupational status: retired Cognitive needs: Yes (cane) Hearing needs: Yes (hearing aide) Vision needs: Yes (glasses) Physical Exam Vital Signs: Last Vital Signs Pulse 80 08/15/24 09:12 Resp 16 08/15/24 09:12 BP 124/78 08/15/24 09:12 Pulse Ox 98 08/15/24 09:12 Oxygen Delivery Method Room Air 08/15/24 09:12 Office Procedures AMB Joint Injection/Aspiration Joint Injection/Aspiration Details: Interlaminar epidural steroid injection, C7/T1, Left parasaggital After obtaining written consent, pre-procedure blood pressure and heart rate were stable and recorded in the nursing record. The patient was placed in the prone position. The cervicothoracic area was widely prepped with chloraprep and draped in sterile fashion. Fluoroscopic guidance was used to identify the desired interlaminar space and for needle placement. The C7-T1 interlaminar space was chosen for access. Subcutaneous 0.5% lidocaine was used to anesthetize the skin overlying the target. A 20-gauge Aceves needle was advanced to the epidural space using loss of resistance to contrast technique under fluoroscopic AP and contralateral oblique views. There was no evidence of heme or CSF and no paresthesias were elicited with needle placement. Confirmation of epidural needle placement was performed with 1cc of omnipaque 180. Next 3 ml 0.5% lidocaine mixed with dexamethasone 15 mg was administered epidurally with no pain elicited on injection. The needle tract tubing was then cleared with 1 ml of 0.5% lidocaine. The needle was removed, skin cleansed and a sterile bandage was applied. The patient tolerated the procedure well and no complications were encountered. Following the procedure the patient's vital signs were stable. The patient was discharged home in good condition with post-procedural instructions. Time Out: Immediately prior to the procedure, the following was verbally confirmed that there is a signed consent form and that the correct patient, planned procedure, site and side are consistent with documentation and that necessary equipment and/or blood products are available prior to the start of the case. Complications: none EBL: <2 cc Coding 42914 - Cervical Epidural/Interlaminar with fluoroscopy Procedure code (CPT) selection complete Assessment & Plan Assessment & Plan (1) Cervical spondylitis with radiculitis: Code(s): M46.92 - Unspecified inflammatory spondylopathy, cervical region; M54.12 - Radiculopathy, cervical region Category: Medical Plan Patient is status post C7-T1 interlaminar ELIZABETH. Patient tolerated procedure well and was discharged home in stable condition with discharge instructions. All questions were answered. We will follow-up via telephone or in clinic to assess response to therapy. A follow-up appointment was made during today's visit. Orders: Orders AMB Joint Injection/Aspiration Today M46.92 - Unspecified inflammatory spondylopathy, cervical region, M54.12 - Radiculopathy, cervical region FL guidance in treatment room Today M46.92 - Unspecified inflammatory spo ndylopathy, cervical region, M54.12 - Radiculopathy, cervical region Coding Level of Care Code Procedure Only Diagnoses Cervical spondylitis with radiculitis M46.92; M54.12 CPT Codes Coding - Joint 10: 11091 - Cervical Epidural/Interlaminar with fluoroscopy ([id number])
--- OUTSIDE RECORDS SUMMARY | 2024-08-15 09:27 | XMS_ITS | Clinical Summary ---
Demographics Address [address] [place] [address] Home Phone Email Address Preferred Language Urdu Marital Status Mormon Affiliation Unknown Race White Ethnic Group Not or Lati no Author Organization [facility] Address [address] [place] [id number] Support Name Relationship Address Phone Rigo Steiner Emergency Contact [address] [facility] [place] [address] Care Team Providers Care Nursing Program Manager Name Role Phone Obi Miller MD Primary Care Provider [phone] Allergies Active Allergy Reactions Criticality Noted Date [...] Lizzette Steiner Personal/Family Self 1950 [address] [place] [address] Care Teams Nursing Program Manager Relationship Specialty Start Date End Date Obi Miller MD [address] [place] [id number] PCP - General Internal Medicine 01/31/18
[2024-08-15 09:47] VITALS: BP 138/72; PULSE 80; RESP 16; O2SAT 97
== END 2024-08-15 10:09 | disposition home or self-care (01) ==
LOC: HO.PMCPRC 08:58
PROVIDERS: PCP Hospitalist; Visit Provider Internal Medicine
DX: M54.12 Radiculopathy, cervical region (principal); M46.92 Unspecified inflammatory spondylopathy, cervical region
CPT/HCPCS: 62321

== ENCOUNTER 2024-08-25 10:42 | Inpatient (IN) | payer MEDICARE, OTHER, SELFPAY ==
--- NOTE | 2024-08-25 | ECG_ITS ---
Test Reason : weakness Blood Pressure : */* mmHG Vent. Rate : 67 BPM Atrial Rate : * BPM P-R Int : * ms QRS Dur : 76 ms QT Int : 450 ms P-R-T Axes : * -16 -3 degrees QTcB Int : 475 ms Normal sinus rhythm Minimal voltage criteria for LVH, may be normal variant ( R in aVL ) Abnormal ECG When compared with ECG of 21-Jun-2024 12:32, No significant changes seen Referred By: Generic ED Physician Electronically Signed By: Forest Kelly
--- NOTE | ~2024-08-25 | MR_ITS ---
CLINICAL HISTORY: ?Duodenal ulcer, evaluate for mass or stricture, pancreas protocol per hosp MRI abdomen without and with contrast Comparison: 08/25/2024 Findings: There is edema of the duodenal bulb with improvement. There is a small focus of ulceration associated with the medial aspect of the duodenal bulb, without change. There is luminal narrowing in the region of inflammation. There is a subcentimeter focus of enhancement in the region of ulceration. Interval improvement in adjacent mesenteric edema. No extraluminal gas or fluid collection. There is thickening of gastric folds. There is mild distention of the stomach with gas and fluid. There is moderate pancreatic volume loss. No pancreatic mass. Mild irregularity of the liver contour. Possible foci of fibrosis within the liver. No suspicious mass. Normal spleen size. Unremarkable adrenal glands. Multiple kidney cysts. No hydronephrosis. Prior cholecystectomy. No biliary dilatation. No suspicious focal bone lesion. There is edema of the visualized left upper extremity soft tissues. Impression: 1. Duodenitis associated with a small focus of duodenal ulceration. Luminal narrowing is present in the area of inflammation. A developing stricture is not excluded. 2. Subcentimeter focus of enhancement in the region of duodenal inflammation. This may be related to the inflammatory process. A polyp is not excluded. This could be further evaluated with EGD. 3. There are also changes of gastritis. This document has been electronically signed by: Mary Gilbert MD on 08/27/2024 18:04:39
--- NOTE | ~2024-08-25 | CT_ITS ---
CLINICAL HISTORY: upper abdominal pain recent duodenitis CT abdomen and pelvis with IV contrast. COMPARISON: CT abdomen and pelvis dated 06/21/24 at 20:37 EDT FINDINGS: Partially visualized lung bases are unremarkable. Minimal atelectasis along the lung bases. Cardiomegaly. Mitral annular calcifications. Aortic annular calcifications Nodular hepatic contour. No focal hepatic lesion. Cholecystectomy. Normal spleen. Normal adrenal glands. Symmetric renal enhancement. Bilateral renal cystic lesions measuring up to 3.7 cm on the left. Nonobstructing right renal calculi measuring up to 3 mm. Additional well-defined subcentimeter hypoattenuating lesions present on the kidneys, too small to further characterize but likely also representing renal cysts. No hydronephrosis. There are inflammatory changes along the 2nd portion of the duodenum and pancreatic head. Duodenal diverticulum present within this region. Question discontinuity within the medial wall of the duodenum adjacent to the diverticulum (series 4, image [id number]). No organizing fluid collection or free intraperitoneal air. No focus of active hemorrhage. Otherwise the pancreas appears unremarkable. Pancreatic duct is not dilated. Appendix is not seen. Mild colonic stool burden. No bowel obstruction. Multiple normal-sized mesenteric lymph nodes. Minimal calcified plaque present along the nonaneurysmal abdominal aorta without significant stenosis. Normal appearance of the urinary bladder. No adnexal mass. Advanced multilevel spondylosis. Straightening of the normal lumbar lordosis. No acute fractures spaces bone lesion. IMPRESSION: 1. Inflammatory changes along the 2nd portion of the duodenum with suspected involvement of a duodenal diverticulum along the medial aspect with wall discontinuity suspicious for ulceration. No organizing fluid collection, free intraperitoneal air or evidence of active hemorrhage. Of note this is directly adjacent to the pancreatic head, however inflammatory changes are favored to be secondary to duodenitis/duodenal ulcer. This is in similar location to inflammatory changes along the duodenum seen on prior exam dated 06/21/2024. This document has been electronically signed by: Mark Hernandez MD on 08/25/2024 15:11:12
[2024-08-25 11:25] VITALS: BP 166/59; PULSE 73; RESP 16; TEMP 36.5; O2SAT 96; BMI 26.9
--- NOTE | 2024-08-25 11:25 | ED.GENADULT ---
HPI - General Adult General Chief complaint: Nausea/Vomiting/Diarrhea Stated complaint: diff eating Time Seen by Provider: 08/25/24 12:22 Source: patient, RN notes reviewed and old records reviewed Mode of arrival: ambulatory Limitations: no limitations History of Present Illness ED Provider: Jose ARTIS narrative: 74-year-old female presents for evaluation of nausea and abdominal pain. This has been an ongoing issue for the patient going back to May when she had a cholecystectomy. He had nausea and vomiting did not resolve after the cholecystectomy. She subsequently required several duodenal dilatation due to stenosis. There was obvious malignancy found. The patient has been following closely with Dr. Smith and apparently has outpatient plans for elective partial small-bowel resection. The patient has seen Dr. Russo several times for endoscopy and duodenal dilatation. The patient reports that she feels better after the endoscopies but her symptoms began to return Her last dilatation was 08/01/2024 The patient has been unable to eat or drink anything substantial in the last 3 days. She reports she was able to drink a small amount of crys joycelyn this morning She continues to have upper abdominal pain, no fevers, chills The patient's daughter spoke to Dr. Meléndez, general surgery last night and this morning and it was felt that the patient should be admitted for hydration if she is unable to tolerate oral intake Related Data Home Medications ?Medication ?Instructions ?Recorded ?Confirmed biotin 1 mg capsule 1 mg PO DAILY 05/17/21 08/25/24 blood sugar diagnostic (OneTouch #10 ea 05/27/21 08/15/24 Ultra Test strips) levocetirizine 5 mg tablet (Xyzal) 5 mg PO BID Allergy Symptoms 09/09/21 08/25/24 hydroxyzine pamoate 25 mg capsule 25 mg PO BID PRN Itching 05/23/24 08/25/24 insulin glargine 100 unit/mL (3 46 unit subcut DAILY 06/01/24 08/25/24 mL) subcutaneous pen (Basaglar KwikPen U-100 Insulin) ipratropium bromide 42 mcg (0.06 2 spray intranasal DAILY Allergy 06/01/24 08/25/24 %) nasal spray Symptoms furosemide 20 mg tablet 20 mg PO DAILY PRN leg swelling 06/22/24 08/25/24 lorazepam 0.5 mg tablet 0.5 mg PO TID PRN anxiety 06/22/24 08/25/24 vitamin B complex 1 cap PO DAILY 06/22/24 08/25/24 docusate sodium 100 mg capsule 100 mg PO DAILY PRN Constipation 08/09/24 08/25/24 (Colace) esomeprazole magnesium 20 mg 20 mg PO DAILY 08/25/24 08/25/24 capsule,delayed release (Nexium) magnesium oxide 400 mg (241.3 mg 400 mg PO BID 08/25/24 08/25/24 magnesium) tablet oxycodone 10 mg tablet 10 mg PO TID PRN Pain 08/25/24 08/25/24 prochlorperazine maleate 10 mg 10 mg PO Q8H PRN Nausea And 08/25/24 08/25/24 tablet Vomiting Previous Rx's ?Medication ?Instructions ?Recorded blood sugar diagnostic (OneTouch #100 ea 07/14/22 Ultra Test strips) gabapentin 400 mg capsule 400 mg PO TID 30 days #90 caps 12/30/22 simvastatin 40 mg tablet 40 mg PO BEDTIME #90 tabs 04/26/23 levothyroxine 125 mcg tablet 125 mcg PO DAILY@0630 #90 tabs 05/18/23 pyridoxine (vitamin B6) 100 mg 100 mg PO DAILY 90 days #90 tabs 12/28/23 tablet acetaminophen 325 mg tablet 650 mg (2 x 325 mg) PO Q6H PRN 05/27/24 Pain, Mild 1-3,Fever,Headache #30 tabs pantoprazole 40 mg tablet,delayed 40 mg PO DAILY@0630 #60 tabs 06/25/24 release (Protonix) Allergies Allergy/AdvReac Type Severity Reaction Status Date / Time insulin detemir Allergy Severe Itching Verified 08/25/24 11:25 [From Levemir U-100 Insulin] adhesive tape Allergy Intermediate Rash from Verified 08/25/24 11:25 medical tape, tegaderm, etc. bupropion [From Wellbutrin] Allergy Intermediate Rash Verified 08/25/24 11:25 codeine [Codeine] Allergy Intermediate Nausea and Verified 08/25/24 11:25 Vomiting escitalopram Allergy Intermediate lethargy Verified 08/25/24 11:25 NSAIDS (Non-Steroidal Allergy Intermediate Swelling Verified 08/25/24 11:25 Anti-Inflamma oxycodone [From OxyContin] Allergy Intermediate Itching Verified 08/25/24 11:25 pregabalin Allergy Intermediate Confusion Verified 08/25/24 11:25 rosuvastatin [Crestor] AdvReac Intermediate joint pain Verified 08/25/24 11:25 Review of Systems Constitutional: Constitutional: Denies body ache(s), Denies chills, Denies fever(s) and Denies frequent falls ENT: Denies vertigo and Denies dizziness Cardiovascular: Cardiovascular: Denies chest pain and Denies dyspnea Respiratory: Respiratory: Denies cough and Denies dyspnea Gastrointestinal: Gastrointestinal: Reports abdominal pain, Denies GI cramping, Reports nausea and Reports vomiting Genitourinary: Genitourinary: Denies hematuria Musculoskeletal: Musculoskeletal: Denies back pain Integumentary/Breasts: Skin/Breast: Denies rash Neurologic: Denies vertigo, Denies dizziness and Denies frequent falls [facility] Past Medical History Medical History (Updated 08/26/24 @ 16:14 by Annmarie Fisher MD) Duodenal stricture Duodenitis Bilateral cataracts Schizoaffective disorder Confusion Skin rash Vitamin D deficiency HTN (hypertension) HLD (hyperlipidemia) Cellulitis of leg, left Urinary urgency Arthralgia of shoulder region, left Cervical spondylitis with radiculitis Myofascial pain on left side Depression OCD (obsessive compulsive disorder) DJD (degenerative joint disease) SI (sacroiliac) joint dysfunction Fibromyalgia GERD (gastroesophageal reflux disease) Neuropathy Diabetes Surgical History (Updated 07/30/24 @ 13:19 by Jennifer Rogers RN) History of esophagogastroduodenoscopy (EGD) History of laparoscopic cholecystectomy (~05/24/24) H/O mastectomy Hx of appendectomy H/O exploratory laparotomy History of surgery Family History Family History Father No problems noted. Mother No problems noted. Social History Social History Household Members: Spouse Household Members Other:: 1 Housing: House Are you a primary care aid to a significant other at home: No Do you presently have visiting nurse or other home services: No Alcohol intake: former Comment: uses cane and walker at home Patient Tobacco Use Status: Never used Tobacco Tobacco use type: Cigarette Smoked in Last 30 Days: No e-Cigarette/Vaping Use: Never Used Second Hand Smoke Exposure: No Use of substances other than those prescribed or required for medical reasons: No Currently Displaying Signs/Symptoms of Drug Intoxication Withdrawal: No Have you been hit, kicked, punched, or otherwise hurt by someone within the past year? If so, by whom?: No Do you feel safe in your current relationship?: Yes Is there a partner from a previous relationship who is making you feel unsafe now?: No Are you made to feel afraid or neglected: No Advance Directives: No Advance Directives Information Provided: Yes Advance Directives Date on File: 06/01/24 Do you have a plan to hurt others: No Plan Recently lost weight without trying: No Eating poorly because of decreased appetite: Yes Nutrition Risks: No Nutritional Risk Patient : No : No Poor oral hygiene: No service: No Current occupational status: retired Cognitive needs: Yes (cane) Hearing needs: Yes (hearing aide) Vision needs: Yes (glasses) Physical Exam ED Vital Signs: Vital Signs - 24 hr 08/25/24 11:25 08/25/24 13:24 Temperature 97.7 F 98.0 F Pulse Rate 73 74 Respiratory Rate 16 14 Blood Pressure 166/59 H 145/63 H Pulse Oximetry 96 98 Oxygen Delivery Method Room Air Room Air BMI result Body Mass Index 26.9 Const General: healthy appearing, comfortable, no acute distress, alert and awake Nutritional Appearance: well nourished Orientation/consciousness: patient oriented x3 HENMT Head: Yes normocephalic and Yes atraumatic Eyes Eyelids: Yes eyelids normal Conjunctivae: conjunctivae normal Sclerae: sclerae normal Corneas: corneas normal Pupils: Equal, round and reactive pupils present EOM: EOMs intact bilaterally Neck Neck: Yes full ROM Resp Effort & Inspection: normal respiratory effort, able to speak in complete sentences and not labored GI Other: Minimal epigastric tenderness without rebound or guarding Inspection: No distended Palpation (GI): Soft to palpation, not firm, Tenderness to palpation present (GI) in the epigastrum, no guarding and not rigid Skin General skin exam: elasticity normal Neuro General: patient oriented x3 Cranial nerves: Yes Equal, round and reactive pupils present and Yes Bilaterally intact EOM present Cognition (Neuro): normal cognition Extrem Other: Moving all extremities well without any obvious deformities Course Course Course Narrative: This is an RME performed by Rhianna Rosario CNP: Additional HPI, ROS, PE not included below will be deferred to primary provider. Patient is a 74-year-old female recent history of laparoscopic cholecystectomy for purulent cholecystitis 05/31/2024 who presents emergency department for evaluation. She has been experiencing nausea and difficulty eating over the past 2-3 days however since yesterday afternoon her nausea significantly worse. No oral intake since yesterday per family. Family states that she has had duodenum dilation on 4 occasions every 2-3 weeks with the last occurring August 01. They follow with Dr. Smith, and are awaiting plans for surgery? They have contacted General surgery office, spoke with Dr. Meléndez yesterday night and today and was advised she would be admitted to hospital. 07/31/2024 had upper endoscopy with dilation secondary to duodenal stricture, following with Gastroenterology, last office visit 08/09/24 - quadrant stricture with no overt malignancy but atypia on 1 sample advised referral back to Dr. Smith for discussion for surgery, neoplasia, dysplasia Plan: Serum labs, urinalysis - I did make contact with Dr. Meléndez from General surgery through [employer], who does a advised that if she is unable to eat or drink she may need to be admitted to the hospitalist service for hydration Reevaluation(s) Reevaluation #1: Discussed with hospitalist, Dr. Murphy who was requesting imaging as the patient has not had a CT scan in 2 months. Time: 13:48 Medications Administered Generic Name Dose Route Start Last Admin Trade Name Freq PRN Reason Stop Dose Admin Acetaminophen 650 mg 08/25/24 16:30 08/27/24 02:34 Acetaminophen 325 Mg Tablet PO 650 mg Q6H PRN Administration Pain, Mild 1-3,fever,headache Atorvastatin Calcium 20 mg 08/25/24 21:00 08/26/24 22:12 Atorvastatin Calcium 20 Mg Tablet PO 20 mg BEDTIME GLENN Administration Gabapentin 400 mg 08/25/24 21:00 08/27/24 07:37 Gabapentin 400 Mg Capsule PO 400 mg TID GLENN Administration Lactated Ringer's 1,000 mls @ 100 mls/hr 08/26/24 08:00 08/27/24 10:01 Lr IVCONT Infused .Q10H GLENN Infusion Insulin Human Lispro 0 unit 08/25/24 21:00 08/27/24 07:30 Insulin Lispro 100 Unit/Ml 3 Ml Vial SUBCUT Not Given QIDACHS [facility] Protocol Ipratropium [place] 2 spray 08/26/24 09:00 08/27/24 07:37 Ipratropium [place] Rafita 0.06 % 15 Ml [place] NOSTRIL-B 2 spray DAILY [facility] Administration Levothyroxine Sodium 125 mcg 08/26/24 06:30 08/27/24 06:08 Levothyroxine Sodium 125 Mcg Tablet PO 125 mcg DAILY@0630 [facility] Administration Loratadine 10 mg 08/26/24 09:00 08/27/24 07:37 Loratadine 10 Mg Tablet PO 10 mg DAILY [facility] Administration Lorazepam 0.5 mg 08/25/24 17:01 08/27/24 02:34 Lorazepam 0.5 Mg Tablet PO 0.5 mg TID PRN Administration Anxiety Magnesium Oxide 400 mg 08/25/24 21:00 08/27/24 07:37 Magnesium Oxide 400 Mg Tablet PO 400 mg BID [facility] Administration Multivitamins/Vitamin C 1 tab 08/26/24 09:00 08/27/24 07:37 Multivitamin Tablet PO 1 tab DAILY [facility] Administration Oxycodone HCl 10 mg 08/26/24 10:42 08/27/24 06:17 Oxycodone Hcl Immed Release 5 Mg Tablet PO 10 mg QID PRN Administration Pain, Severe (Pain Scale 7-10) Pantoprazole Sodium 40 mg 08/25/24 17:10 08/27/24 06:08 Pantoprazole Sodium 40 Mg/10 Ml Vial IVPUSH 40 mg BID@0630,1630 [facility] Administration Prochlorperazine Edisylate 10 mg 08/25/24 16:46 08/26/24 10:09 Prochlorperazine Edisylate 10 Mg/2 Ml Vial IVPUSH 10 mg Q4H PRN Administration Nausea Sodium Chloride 3 ml 08/26/24 00:00 08/27/24 06:50 0.9 % Sodium Chloride Flush 3 Ml Syringe IVFLUSH Not Given QSHIFT [facility] Discontinued Medications Generic Name Dose Route Start Last Admin Trade Name Freq PRN Reason Stop Dose Admin Sodium Chloride 1,000 mls @ 999 mls/hr 08/25/24 12:45 08/25/24 13:58 Ns IV 08/25/24 13:45 Infused .Q1H1M GLENN Infusion Lactated Ringer's 1,000 mls @ 80 mls/hr 08/25/24 16:30 08/26/24 06:57 Lr IVCONT 08/26/24 04:59 Infused .[id number] GLENN Infusion Iohexol 100 ml 08/25/24 14:12 08/25/24 14:13 Iohexol 350 Mg/Ml 100 Ml Infus..Btl IV 08/25/24 14:13 85 ml ONCE ONE Administration Oxycodone HCl 10 mg 08/25/24 16:28 08/26/24 06:37 Oxycodone Hcl Immed Release 5 Mg Tablet PO 10 mg TID PRN Administration Pain, Severe (Pain Scale 7-10) Potassium Chloride 20 meq 08/26/24 07:49 08/26/24 08:46 Potassium Chloride Er 20 Meq Tab.Er.Prt PO 08/26/24 07:50 20 meq ONCE ONE Administration Prochlorperazine Edisylate 10 mg 08/25/24 12:34 08/25/24 13:00 Prochlorperazine Edisylate 10 Mg/2 Ml Vial IVPUSH 08/25/24 12:35 10 mg ONCE ONE Administration Medical Decision Making Medical Decision Making [facility] Narrative: 74-year-old female presents for evaluation of upper abdominal pain with persistent nausea. This has been an ongoing issue. She has plans for surgery consult and possible partial small bowel resection. She has had multiple endoscopies for dilatation of the duodenum. Given that she is unable to tolerate oral intake, plan for IV hydration and we will discuss with the hospitalist. The patient's labs are reassuring. There is no significant ITZEL, AST is just barely above normal limits but otherwise unremarkable LFTs. Lipase is not elevated Differential Diagnosis Differential Diagnoses: The differential diagnosis associated with the presentation includes Duodenitis Bowel obstruction Gastritis Peptic ulcer disease Admission/Observation Consideration of admission/observation: Escalation of care including admission/observation considered Consult Healthcare Provider Management of the patient was discussed with: Hospitalist Dr Murphy Lab Data [facility] Lab Attestation statement: I reviewed the patient's lab results. As above 08/25/24 12:16 08/27/24 06:06 Labs: Lab Results 08/25/24 08/25/2425 Range/Units 12:16 12:20 13:27 WBC 10.3 (4.8-10.8) X10*3/uL RBC 4.23 (4.20-5.50) X10*6/uL Hgb 12.4 (12.0-16.0) g/dl Hct 37.1 (37.0-47.0) % MCV 87.7 (80.0-98.0) fL MCH 29.3 (27.0-33.0) pg MCHC 33.4 (31.0-35.0) g/dl RDW 13.1 (11.0-16.0) % Plt Count 419 H (160-400) X10*3/uL MPV 8.2 L (9.4-12.3) fL Immature Gran % (Auto) 0.5 H (0.0-0.4) % Neut % (Auto) 84.9 H (45-73) % Lymph % (Auto) 7.4 L (20-40) % [place] % (Auto) 6.7 (2-11) % Eos % (Auto) 0.2 (0-4) % Baso % (Auto) 0.3 (0-2) % Lymph # (Auto) 0.8 L (1.2-4.9) X10*3/uL [place] # (Auto) 0.7 (0.1-1.2) X10*3/uL Eos # (Auto) 0.0 (0.0-0.4) X10*3/uL Baso # (Auto) 0.0 (0.0-0.2) X10*3/uL Abs Immat Gran (auto) 0.05 H (0.00-0.03) X10*3/uL Absolute Neuts (auto) 8.8 H (2.0-8.3) x10*3/uL Absolute Nucleated RBC 0.000 (0.0-0.012) X10*3/uL Nucleated RBC % (auto) 0.0 (0.0-0.2) /100WBC Sodium 138 (135-145) mmol/L Potassium 3.6 (3.3-5.1) mmol/L Chloride 102 (96-108) mmol/L Carbon Dioxide 24 (22-29) mmol/L Anion Gap 16 (12-20) BUN 8 L (9-16) mg/dL Creatinine 0.66 (0.5-1.4) mg/dL Estim Creat Clear Calc 63.4 Estimated GFR > 60 POC Glucose 128 H (60-115) mg/dL Random Glucose 125 H (60-115) mg/dL Calcium 9.1 (8.4-10.2) mg/dL Magnesium 1.8 (1.6-2.6) mg/dL Total Bilirubin 0.4 (0.0-1.0) mg/dL AST 32 H (5-31) U/L ALT 20 (0-31) U/L Alkaline Phosphatase 102 (39-117) U/L Total Protein 6.7 (6.5-8.0) g/dL Albumin 3.7 (3.5-5.0) g/dL Lipase 6 L (8-78) U/L Urine Color Yellow Urine Appearance Clear Urine pH 6.5 (5.0-9.0) Ur Specific [place] 1.015 (1.005-1.025) Urine Protein Negative (Neg-Trace) mg/dL Urine Glucose (UA) Negative (Negative) mg/dL Urine Ketones 40 (Negative) mg/dL Urine Blood Negative (Negative) Urine Nitrite Negative (Negative) Ur Leukocyte Esterase Negative (Negative) Radiology Impression Discussion of test interpretation with radiology: I have reviewed the radiologist's reading. Radiologist Impression: FINDINGS: Partially visualized lung bases are unremarkable. Minimal atelectasis along the lung bases. Cardiomegaly. Mitral annular calcifications. Aortic annular calcifications Nodular hepatic contour. No focal hepatic lesion. Cholecystectomy. Normal spleen. Normal adrenal glands. Symmetric renal enhancement. Bilateral renal cystic lesions measuring up to 3.7 cm on the left. Nonobstructing right renal calculi measuring up to 3 mm. Additional well-defined subcentimeter hypoattenuating lesions present on the kidneys, too small to further characterize but likely also representing renal cysts. No hydronephrosis. There are inflammatory changes along the 2nd portion of the duodenum and pancreatic head. Duodenal diverticulum present within this region. Question discontinuity within the medial wall of the duodenum adjacent to the diverticulum (series 4, image 291 [id number]). No organizing fluid collection or free intraperitoneal air. No focus of active hemorrhage. Otherwise the pancreas appears unremarkable. Pancreatic duct is not dilated. Appendix is not seen. Mild colonic stool burden. No bowel obstruction. Multiple normal-sized mesenteric lymph nodes. Minimal calcified plaque present along the nonaneurysmal abdominal aorta without significant stenosis. Normal appearance of the urinary bladder. No adnexal mass. Advanced multilevel spondylosis. Straightening of the normal lumbar lordosis. No acute fractures spaces bone lesion. IMPRESSION: 1. Inflammatory changes along the 2nd portion of the duodenum with suspected involvement of a duodenal diverticulum along the medial aspect with wall discontinuity suspicious for ulceration. No organizing fluid collection, free intraperitoneal air or evidence of active hemorrhage. Of note this is directly adjacent to the pancreatic head, however inflammatory changes are favored to be secondary to duodenitis/duodenal ulcer. This is in similar location to inflammatory changes along the duodenum seen on prior exam dated 06/21/2024. This document has been electronically signed by: Mark Hernandez MD on 08/25/2024 15:11:12 Discharge Plan Discharge Clinical Impression: Duodenitis Patient Disposition: Admitted As Inpatient Interventions: Admission Worksheet (ED) Last Done: 08/25/24 15:19 Discharge Date/Time: 08/25/24 16:04
[2024-08-25 12:22] LABS: MANUAL DIFF FLAG NO
[2024-08-25 12:23] LABS: Glucose, Whole Blood 128 mg/dL (60-115)
[2024-08-25 12:24] LABS: Basophils Percent Auto 0.3 % (0-2); Eosinophils Percent Auto 0.2 % (0-4); Hematocrit 37.1 % (37.0-47.0); Hemoglobin 12.4 g/dl (12.0-16.0); Imm Gran Abs Auto 0.05 X10*3/uL (0.00-0.03); Imm Gran Pct Auto 0.5 % (0.0-0.4); Lymphocytes Absolute Auto 0.8 X10*3/uL (1.2-4.9); Lymphocytes Percent Auto 7.4 % (20-40); Mean Corpuscular HGB Conc 33.4 g/dl (31.0-35.0); Mean Corpuscular Hemoglobin 29.3 pg (27.0-33.0); Mean Corpuscular Volume 87.7 fL (80.0-98.0); Mean Platelet Volume 8.2 fL (9.4-12.3); Monocytes Absolute Auto 0.7 X10*3/uL (0.1-1.2); Monocytes Percent Auto 6.7 % (2-11); Neutrophils Absolute Auto 8.8 x10*3/uL (2.0-8.3); Neutrophils Percent Auto 84.9 % (45-73); Platelet Count 419 X10*3/uL (160-400); Red Blood Count 4.23 X10*6/uL (4.20-5.50); Red Cell Distribution Width 13.1 % (11.0-16.0); White Blood Count 10.3 X10*3/uL (4.8-10.8)
[2024-08-25 12:40] LABS: Alanine Aminotransferase 20 U/L (0-31); Albumin Level 3.7 g/dL (3.5-5.0); Alkaline Phosphatase 102 U/L (39-117); Anion Gap 16 (12-20); Aspartate Amino Transferase 32 U/L (5-31); Bilirubin Total 0.4 mg/dL (0.0-1.0); Blood Urea Nitrogen 8 mg/dL (9-16); Calcium 9.1 mg/dL (8.4-10.2); Carbon Dioxide 24 mmol/L (22-29); Chloride 102 mmol/L (96-108); Creatinine Clr Calc Pharmacy 63.4; Estimated Glomerular Filt Rate > 60; Glucose Random 125 mg/dL (60-115); Lipase 6 U/L (8-78); Magnesium 1.8 mg/dL (1.6-2.6); Potassium 3.6 mmol/L (3.3-5.1); Sodium 138 mmol/L (135-145); Total Protein 6.7 g/dL (6.5-8.0)
[2024-08-25] MEDS: 0.9 % Sodium Chloride 1,000 ML 999 ML IV (13:00)
[2024-08-25] MEDS: Prochlorperazine Edisylate 10 MG/2 ML VIAL IVPUSH ×2 (13:00→18:08)
[2024-08-25 13:24] VITALS: BP 145/63; PULSE 74; RESP 14; TEMP 36.7; O2SAT 98
[2024-08-25 13:37] LABS: Appearance Urine Clear; Color Urine Yellow; Glucose Urine UA Negative (Negative); Leukocyte Esterase Urine Negative (Negative); Nitrite Urine Negative (Negative); PH 6.5 (5.0-9.0); Specific Gravity - Urine 1.015 (1.005-1.025); Urine Blood Negative (Negative); Urine Ketones 40 mg/dL (Negative); Urine Protein Negative (Neg-Trace)
[2024-08-25] MEDS: iohexoL 350 MG/ML 100 ML INFUS..BTL IV (14:13)
--- NOTE | 2024-08-25 14:28 | P.HPHOSP_ITS ---
History of Present Illness Date of Service: 08/25/24 Attending physician on admission: Jj [facility] Chief Complaint: Abdominal pain Pt is a 74-year-old female with a PMH significant for?insulin dependent type 2 diabetes, HLD hypothyroidism fibromyalgia, GERD, and hx of duodenal stricture x4 EGD w/dilation (last on 08/01/2024) who presents to the ED with?worsening and intractable nausea since late yesterday afternoon. Pt with a long hx of duodenal stricture that has required multiple EGDs with balloon dilation, most recently on 08/01/[address] Russo. Postop appointment on 08/09/2024 indicated stricture looked similar and not improved, and plan was made to refer to Dr. Smith in general surgery for additional workup. Pt reports was in her normal state of health and eating and drinking without issue up until yesterday afternoon when she developed significant and intractable nausea without vomiting. No abdominal pain. Reports 1 episode of diarrhea after IV contrast, but none prior to that. Chronic SOB at baseline. No chest pain/pressure, palpitations. Denies fever, chills. In the ED pt was hypertensive up to 166/59, vitals otherwise stable and WNL. Labs were grossly unremarkable and around baseline for pt. No leukocytosis. Stable H&H. No significant electrolyte abnormalities. Renal function baseline. Hepatic function WNL. Lipase WNL. UA negative for UTI. CTA of abdomen and pelvis showed inflammatory changes along 2nd portion of the duodenum with suspected involvement of duodenal diverticulum, suspicious for ulceration. . Pt was treated in the ED with Compazine and IVF. Pt is admitted to the hospital under for treatment and further evaluation of intractable nausea in the setting of likely acute duodenitis/duodenal ulcer. Review of Systems 2 Review of Systems: Negative except for that which is stated in the HPI. COUNT INCLUDES THE [facility] Medical History (Updated 08/25/24 @ 16:10 by Tucker Garcia) Duodenal stricture Duodenitis Bilateral cataracts Schizoaffective disorder Confusion Skin rash Vitamin D deficiency HTN (hypertension) HLD (hyperlipidemia) Cellulitis of leg, left Urinary urgency Arthralgia of shoulder region, left Cervical spondylitis with radiculitis Myofascial pain on left side Depression OCD (obsessive compulsive disorder) DJD (degenerative joint disease) SI (sacroiliac) joint dysfunction Fibromyalgia GERD (gastroesophageal reflux disease) Neuropathy Diabetes Family History Father No problems noted. Mother No problems noted. Surgical History (Updated 07/30/24 @ 13:19 by Jennifer Rogers RN) History of esophagogastroduodenoscopy (EGD) History of laparoscopic cholecystectomy (~05/24/24) H/O mastectomy Hx of appendectomy H/O exploratory laparotomy History of surgery Social History Household Members: Spouse Household Members Other:: 1 Housing: House Are you a primary personal care aid to a significant other at home: No Do you presently have visiting nurse or other home services: No Alcohol intake: former Comment: uses cane and walker at home Patient Tobacco Use Status: Never used Tobacco Tobacco use type: Cigarette Smoked in Last 30 Days: No e-Cigarette/Vaping Use: Never Used Second Hand Smoke Exposure: No Use of substances other than those prescribed or required for medical reasons: No Have you been hit, kicked, punched, or otherwise hurt by someone within the past year? If so, by whom?: No Do you feel safe in your current relationship?: Yes Is there a partner from a previous relationship who is making you feel unsafe now?: No Are you made to feel afraid or neglected: No Advance Directives: No Advance Directives Information Provided: Yes Advance Directives Date on File: 06/01/24 Do you have a plan to hurt others: No Plan Recently lost weight without trying: No Eating poorly because of decreased appetite: Yes Nutrition Risks: No Nutritional Risk Patient : No : No Poor oral hygiene: No service: No Current occupational status: retired Cognitive needs: Yes (cane) Hearing needs: Yes (hearing aide) Vision needs: Yes (glasses) Meds Allergies Allergy/AdvReac Type Severity Reaction Status Date / Time insulin detemir Allergy Severe Itching Verified 08/25/24 11:25 [From Levemir U-100 Insulin] adhesive tape Allergy Intermediate Rash from Verified 08/25/24 11:25 medical tape, tegaderm, etc. bupropion [From Wellbutrin] Allergy Intermediate Rash Verified 08/25/24 11:25 codeine [Codeine] Allergy Intermediate Nausea and Verified 08/25/24 11:25 Vomiting escitalopram Allergy Intermediate lethargy Verified 08/25/24 11:25 NSAIDS (Non-Steroidal Allergy Intermediate Swelling Verified 08/25/24 11:25 Anti-Inflamma oxycodone [From OxyContin] Allergy Intermediate Itching Verified 08/25/24 11:25 pregabalin Allergy Intermediate Confusion Verified 08/25/24 11:25 rosuvastatin [Crestor] AdvReac Intermediate joint pain Verified 08/25/24 11:25 Home Medications ?Medication ?Instructions ?Recorded ?Confirmed ?Last Taken ?Type biotin 1 mg capsule 1 mg PO DAILY 05/17/21 08/25/24 2 Weeks Ago History ~06/08/24 blood sugar diagnostic (OneTouch #10 ea 05/27/21 08/15/24 Unknown History Ultra Test strips) levocetirizine 5 mg tablet (Xyzal) 5 mg PO BID Allergy Symptoms 09/09/21 08/25/24 2 Weeks Ago History ~06/08/24 hydroxyzine pamoate 25 mg capsule 25 mg PO BID PRN Itching 05/23/24 08/25/24 Unknown History insulin glargine 100 unit/mL (3 46 unit subcut DAILY 06/01/24 08/25/24 08/01/24 06:50 History mL) subcutaneous pen (Basaglar 23 units KwikPen U-100 Insulin) ipratropium bromide 42 mcg (0.06 2 spray intranasal DAILY Allergy 06/01/24 08/25/24 Unknown History %) nasal spray Symptoms furosemide 20 mg tablet 20 mg PO DAILY PRN leg swelling 06/22/24 08/25/24 Unknown History lorazepam 0.5 mg tablet 0.5 mg PO TID PRN anxiety 06/22/24 08/25/24 Unknown History vitamin B complex 1 cap PO DAILY 06/22/24 08/25/24 2 Weeks Ago History ~06/08/24 docusate sodium 100 mg capsule 100 mg PO DAILY PRN Constipation 08/09/24 08/25/24 Unknown History (Colace) esomeprazole magnesium 20 mg 20 mg PO DAILY 08/25/24 08/25/24 Unknown History capsule,delayed release (Nexium) magnesium oxide 400 mg (241.3 mg 400 mg PO BID 08/25/24 08/25/24 Unknown History magnesium) tablet oxycodone 10 mg tablet 10 mg PO TID PRN Pain 08/25/24 08/25/24 08/24/24 History prochlorperazine maleate 10 mg 10 mg PO Q8H PRN Nausea And 08/25/24 08/25/24 08/25/24 History tablet Vomiting Physical Exam 2 Vital Signs and Narrative: Vital Signs: Last Vital Signs Temp 98.0 F 08/25/24 13:24 Pulse 74 08/25/24 13:24 Resp 14 08/25/24 13:24 BP 145/63 H 08/25/24 13:24 Pulse Ox 98 08/25/24 13:24 O2 Del Method Room Air 08/25/24 13:24 BMI result Body Mass Index 26.9 General: AOx3, no acute distress Resp: CTA bilaterally CVS: S1, S2, RRR GI: +BS, NT, no distention Skin: Warm, dry Neuro: Cranial nerves II-XII grossly intact bilaterally. Motor grossly intact bilaterally Extremities: 1+ bilateral pitting edema Psych: Appropriate affect Results Labs 08/25/24 12:16 08/25/24 12:16 Labs: Laboratory Results - last 24 hr 08/25/24 08/25/24 08/25/24 12:16 12:20 13:27 MCV 87.7 MCH 29.3 MCHC 33.4 RDW 13.1 Plt Count 419 H MPV 8.2 L Immature Gran % (Auto) 0.5 H Neut % (Auto) 84.9 H Lymph % (Auto) 7.4 L [place] % (Auto) 6.7 Eos % (Auto) 0.2 Baso % (Auto) 0.3 Lymph # (Auto) 0.8 L [place] # (Auto) 0.7 Eos # (Auto) 0.0 Baso # (Auto) 0.0 Abs Immat Gran (auto) 0.05 H Absolute Neuts (auto) 8.8 H Absolute Nucleated RBC 0.000 Nucleated RBC % (auto) 0.0 Anion Gap 16 Estim Creat Clear Calc 63.4 Estimated GFR > 60 POC Glucose 128 H Random Glucose 125 H Calcium 9.1 Magnesium 1.8 Total Bilirubin 0.4 AST 32 H ALT 20 Alkaline Phosphatase 102 Total Protein 6.7 Albumin 3.7 Lipase 6 L Urine Color Yellow Urine Appearance Clear Urine pH 6.5 Ur Specific [place] 1.015 Urine Protein Negative Urine Glucose (UA) Negative Urine Ketones 40 Urine Blood Negative Urine Nitrite Negative Ur Leukocyte Esterase Negative Assessment and Plan (1) Intractable nausea: Status: Resolved Plan Pt is a 74-year-old female with a PMH significant for?insulin dependent type 2 diabetes, HLD hypothyroidism fibromyalgia, GERD, and hx of duodenal stricture x4 EGD w/dilation (last on 08/01/2024) who presents to the ED with?worsening and intractable nausea since late yesterday afternoon. Pt is admitted to the hospital under for treatment and further evaluation of intractable nausea in the setting of likely acute duodenitis/duodenal ulcer. Intractable nausea Symptom onset yesterday afternoon, no vomiting or significant abdominal pain CT with inflammatory changes concerning for duodenitis/duodenal ulcer Will treat with Protonix IV b.i.d., Compazine IV p.r.n., IVF Clear liquid diet for now, NPO after midnight for possible EGD tomorrow GI consult General surgery consult Insulin-dependent type 2 diabetes Sliding-scale insulin, Lantus at half dosing until full diet restored HLD Continue statin Fibromyalgia Continue gabapentin Hypothyroidism Continue levothyroxine Mood disorder Continue Ativan p.r.n. Full Code Attending:?Dr. Murphy DVT Prophylaxis: Pneumatic compression due to possible surgical or GI procedure Pt will require a hospitalization of at least two nights for treatment of?intractable nausea and inability to tolerate p.o. in the setting of likely acute duodenitis/duodenal ulcer. pt will require hospital level care for administration of IV Protonix, IV antiemetics, and specialist consultation with both GI and General surgery. Quality Stroke Does the patient have a stroke diagnosis?: No VTE Prior VTE?: No VTE Risk Level:: Medical - moderate - high VTE Device Contraindication: N/A - Device Ordered VTE Drug Contraindication: Treatment Not Indicated
[2024-08-25 14:41] VITALS: BP 145/63; PULSE 74; RESP 14; TEMP 36.7; O2SAT 98
--- NOTE | 2024-08-25 14:52 | PHA.MEDREC ---
Addendum entered by Nai Coyle [facility] 08/25/24 15:02: Reviewed by pharmacist, patient confirms she is taking both protonix and otc nexium. Listed both on home list but we should only continue one as this is therapeutic duplication Original Note: Pharmacy Consult ? Medication Reconciliation Pharmacy has completed the medication reconciliation. Spoke with patient to confirm medications. She forgot her medication list at home. She reports no longer taking baby aspirin, diclofenac, and latuda. She was unsure about duloxetine however past 3 med recs patient reports she does not take so leaving off of med list. She uses nexium OTC daily. She confirmed Basaglar 46 units, which she did not have today. Patient reports magnesium got increased to bid. She is using compazine prn, last taken this morning. She confirmed oxycodone 10 mg as well, last taken yesterday. She last took her medications yesterday morning.
--- NOTE | 2024-08-25 15:55 | P.CONGS_ITS ---
History of Present Illness Consult details Consult date: 08/25/24 Requesting physician: Jj Murphy Narrative: Pt is a 74-year-old female with a PMH significant for?insulin dependent type 2 diabetes, HLD hypothyroidism fibromyalgia, GERD, and hx of duodenal stricture x4 EGD w/dilation (last on 08/01/2024) who presents to the ED with?worsening and intractable nausea since late yesterday afternoon. Pt with a long hx of duodenal stricture that has required multiple EGDs with balloon dilation, most recently on 08/01/[address] Russo. Postop appointment on 08/09/2024 indicated stricture looked similar and not improved, and plan was made to refer to Dr. Smith in general surgery for additional workup. Patient's daughter called me last night and this morning saying that she was having significant nausea and vomiting not being able to tolerate adequate p.o. and as a result plan would be to come to the emergency room to get admitted for IV hydration. I did discuss with the daughter patient's history and the daughter said that Dr. Smith was going to try to find them a surgeon to try to fix the area of narrowing surgically. We will plan on discussing this with Dr. Smith. This point no need for any emergent surgical intervention Review of Systems 2 Review of Systems: Yes all other systems are reviewed and are negative PMFSH Past Medical History Medical History (Updated 08/25/24 @ 16:10 by Tucker Garcia) Duodenal stricture Duodenitis Bilateral cataracts Schizoaffective disorder Confusion Skin rash Vitamin D deficiency HTN (hypertension) HLD (hyperlipidemia) Cellulitis of leg, left Urinary urgency Arthralgia of shoulder region, left Cervical spondylitis with radiculitis Myofascial pain on left side Depression OCD (obsessive compulsive disorder) DJD (degenerative joint disease) SI (sacroiliac) joint dysfunction Fibromyalgia GERD (gastroesophageal reflux disease) Neuropathy Diabetes Family History Family History Father No problems noted. Mother No problems noted. Surgical History Surgical History (Updated 07/30/24 @ 13:19 by Jennifer Rogers RN) History of esophagogastroduodenoscopy (EGD) History of laparoscopic cholecystectomy (~05/24/24) H/O mastectomy Hx of appendectomy H/O exploratory laparotomy History of surgery Social History Social History Household Members: Spouse Household Members Other:: 1 Housing: House Are you a primary healthcare administration intern to a significant other at home: No Do you presently have visiting nurse or other home services: No Alcohol intake: former Comment: uses cane and walker at home Patient Tobacco Use Status: Never used Tobacco Tobacco use type: Cigarette Smoked in Last 30 Days: No e-Cigarette/Vaping Use: Never Used Second Hand Smoke Exposure: No Use of substances other than those prescribed or required for medical reasons: No Have you been hit, kicked, punched, or otherwise hurt by someone within the past year? If so, by whom?: No Do you feel safe in your current relationship?: Yes Is there a partner from a previous relationship who is making you feel unsafe now?: No Are you made to feel afraid or neglected: No Advance Directives: No Advance Directives Information Provided: Yes Advance Directives Date on File: 06/01/24 Do you have a plan to hurt others: No Plan Recently lost weight without trying: No Eating poorly because of decreased appetite: Yes Nutrition Risks: No Nutritional Risk Patient : No : No Poor oral hygiene: No service: No Current occupational status: retired Cognitive needs: Yes (cane) Hearing needs: Yes (hearing aide) Vision needs: Yes (glasses) Meds Allergies Allergy/AdvReac Type Severity Reaction Status Date / Time insulin detemir Allergy Severe Itching Verified 08/25/24 11:25 [From Levemir U-100 Insulin] adhesive tape Allergy Intermediate Rash from Verified 08/25/24 11:25 medical tape, tegaderm, etc. bupropion [From Wellbutrin] Allergy Intermediate Rash Verified 08/25/24 11:25 codeine [Codeine] Allergy Intermediate Nausea and Verified 08/25/24 11:25 Vomiting escitalopram Allergy Intermediate lethargy Verified 08/25/24 11:25 NSAIDS (Non-Steroidal Allergy Intermediate Swelling Verified 08/25/24 11:25 Anti-Inflamma oxycodone [From OxyContin] Allergy Intermediate Itching Verified 08/25/24 11:25 pregabalin Allergy Intermediate Confusion Verified 08/25/24 11:25 rosuvastatin [Crestor] AdvReac Intermediate joint pain Verified 08/25/24 11:25 Home Medications ?Medication ?Instructions ?Recorded ?Confirmed ?Last Taken ?Type biotin 1 mg capsule 1 mg PO DAILY 05/17/21 08/25/24 2 Weeks Ago History ~06/08/24 blood sugar diagnostic (OneTouch #10 ea 05/27/21 08/15/24 Unknown History Ultra Test strips) levocetirizine 5 mg tablet (Xyzal) 5 mg PO BID Allergy Symptoms 09/09/21 08/25/24 2 Weeks Ago History ~06/08/24 hydroxyzine pamoate 25 mg capsule 25 mg PO BID PRN Itching 05/23/24 08/25/24 Unknown History insulin glargine 100 unit/mL (3 46 unit subcut DAILY 06/01/24 08/25/24 08/01/24 06:50 History mL) subcutaneous pen (Basaglar 23 units KwikPen U-100 Insulin) ipratropium bromide 42 mcg (0.06 2 spray intranasal DAILY Allergy 06/01/24 08/25/24 Unknown History %) nasal spray Symptoms furosemide 20 mg tablet 20 mg PO DAILY PRN leg swelling 06/22/24 08/25/24 Unknown History lorazepam 0.5 mg tablet 0.5 mg PO TID PRN anxiety 06/22/24 08/25/24 Unknown History vitamin B complex 1 cap PO DAILY 06/22/24 08/25/24 2 Weeks Ago History ~06/08/24 docusate sodium 100 mg capsule 100 mg PO DAILY PRN Constipation 08/09/24 08/25/24 Unknown History (Colace) esomeprazole magnesium 20 mg 20 mg PO DAILY 08/25/24 08/25/24 Unknown History capsule,delayed release (Nexium) magnesium oxide 400 mg (241.3 mg 400 mg PO BID 08/25/24 08/25/24 Unknown History magnesium) tablet oxycodone 10 mg tablet 10 mg PO TID PRN Pain 08/25/24 08/25/24 08/24/24 History prochlorperazine maleate 10 mg 10 mg PO Q8H PRN Nausea And 08/25/24 08/25/24 08/25/24 History tablet Vomiting Physical Exam 2 Vital Signs: Vital Signs: Last Vital Signs Temp 98.0 F 08/25/24 14:41 Pulse 74 08/25/24 14:41 Resp 14 08/25/24 14:41 BP 145/63 H 08/25/24 14:41 Pulse Ox 98 08/25/24 14:41 O2 Del Method Room Air 08/25/24 14:41 BMI result Body Mass Index 26.9 Const: General: cooperative, healthy appearing, comfortable and no acute distress GI: Other: Abdomen is soft nondistended nontender active bowel sounds Results Labs 08/25/24 12:16 08/25/24 12:16 Labs: Abnormal lab results 08/25/24 08/25/24 Range/Units 12:16 12:20 Plt Count 419 H (160-400) X10*3/uL MPV 8.2 L (9.4-12.3) fL Immature Gran % (Auto) 0.5 H (0.0-0.4) % Neut % (Auto) 84.9 H (45-73) % Lymph % (Auto) 7.4 L (20-40) % Lymph # (Auto) 0.8 L (1.2-4.9) X10*3/uL Abs Immat Gran (auto) 0.05 H (0.00-0.03) X10*3/uL Absolute Neuts (auto) 8.8 H (2.0-8.3) x10*3/uL BUN 8 L (9-16) mg/dL POC Glucose 128 H (60-115) mg/dL Random Glucose 125 H (60-115) mg/dL AST 32 H (5-31) U/L Lipase 6 L (8-78) U/L Short CBC 08/25/24 Range/Units 12:16 WBC 10.3 (4.8-10.8) X10*3/uL Hgb 12.4 (12.0-16.0) g/dl Hct 37.1 (37.0-47.0) % Plt Count 419 H (160-400) X10*3/uL BMP 08/25/24 12:16 Sodium 138 Potassium 3.6 Chloride 102 Carbon Dioxide 24 BUN 8 L Creatinine 0.66 Calcium 9.1 Liver Function 08/25/24 Range/Units 12:16 Total Bilirubin 0.4 (0.0-1.0) mg/dL AST 32 H (5-31) U/L ALT 20 (0-31) U/L Alkaline Phosphatase 102 (39-117) U/L Albumin 3.7 (3.5-5.0) g/dL Urine 08/25/24 Range/Units 13:27 Urine Color Yellow Urine Appearance Clear Urine pH 6.5 (5.0-9.0) Ur Specific [place] 1.015 (1.005-1.025) Urine Protein Negative (Neg-Trace) mg/dL Urine Glucose (UA) Negative (Negative) mg/dL All other labs normal. Imaging Abdomen CT scan report/results: report reviewed and image reviewed CT scan - pelvis: report reviewed and image reviewed Additional studies: [address] [address] [address] Scan Report Signed Patient: Lizzette Steiner MR#: [id number] : 1950 Acct:[id number] Age/Sex: 74 / F ADM Date: 08/25/24 Loc: .S3 372-[address]: Juma RIZO Ordering Physician: Tucker Garcia Date of Service: 08/25/24 Procedure(s): CT abdomen pelvis w IV con Accession Number(s): [id number] cc: Jaye Ortega MD; Tucker Garcia~ Report Number: [id number]: Total DLP = 984.00 mGy-cm CLINICAL HISTORY: upper abdominal pain recent duodenitis CT abdomen and pelvis with IV contrast. COMPARISON: CT abdomen and pelvis dated 06/21/24 at 20:37 EDT FINDINGS: Partially visualized lung bases are unremarkable. Minimal atelectasis along the lung bases. Cardiomegaly. Mitral annular calcifications. Aortic annular calcifications Nodular hepatic contour. No focal hepatic lesion. Cholecystectomy. Normal spleen. Normal adrenal glands. Symmetric renal enhancement. Bilateral renal cystic lesions measuring up to 3.7 cm on the left. Nonobstructing right renal calculi measuring up to 3 mm. Additional well-defined subcentimeter hypoattenuating lesions present on the kidneys, too small to further characterize but likely also representing renal cysts. No hydronephrosis. There are inflammatory changes along the 2nd portion of the duodenum and pancreatic head. Duodenal diverticulum present within this region. Question discontinuity within the medial wall of the duodenum adjacent to the diverticulum (series 4, image [id number]). No organizing fluid collection or free intraperitoneal air. No focus of active hemorrhage. Otherwise the pancreas appears unremarkable. Pancreatic duct is not dilated. Appendix is not seen. Mild colonic stool burden. No bowel obstruction. Multiple normal-sized mesenteric lymph nodes. Minimal calcified plaque present along the nonaneurysmal abdominal aorta without significant stenosis. Normal appearance of the urinary bladder. No adnexal mass. Advanced multilevel spondylosis. Straightening of the normal lumbar lordosis. No acute fractures spaces bone lesion. IMPRESSION: 1. Inflammatory changes along the 2nd portion of the duodenum with suspected involvement of a duodenal diverticulum along the medial aspect with wall discontinuity suspicious for ulceration. No organizing fluid collection, free intraperitoneal air or evidence of active hemorrhage. Of note this is directly adjacent to the pancreatic head, however inflammatory changes are favored to be secondary to duodenitis/duodenal ulcer. This is in similar location to inflammatory changes along the duodenum seen on prior exam dated 06/21/2024. 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 Patient has been having nausea and vomiting unable to keep anything down plan is to admit under medical team for IV hydration slow advancement of p.o. liquids. We will discuss with GI team as well as Dr. Smith if there was a plan to have the patient be seen by some type of forgets surgeon for further evaluation and treatment. It seems that she has a seen duodenal diverticulum which could be causing some of these issues Procedures Date of Service Date of Service: 08/25/24
[2024-08-25 16:10] VITALS: BMI 26.9
[2024-08-25 16:29] VITALS: BP 150/78; PULSE 78; RESP 18; TEMP 36.6; O2SAT 98
[2024-08-25] MEDS: oxyCODONE HCl Immed Release 5 MG TABLET 10 MG PO (16:45)
[2024-08-25] MEDS: Lactated Ringers 1,000 ML 80 ML IVCONT (16:50)
[2024-08-25] MEDS: LORazepam 0.5 MG TABLET PO ×2 (17:08→23:32)
[2024-08-25] MEDS: Pantoprazole Sodium 40 MG/10 ML VIAL IVPUSH (17:24)
[2024-08-25 18:27] LABS: Glucose, Whole Blood 106 mg/dL (60-115)
[2024-08-25 19:48] VITALS: BP 139/70; PULSE 76; RESP 16; TEMP 36.6; O2SAT 97
[2024-08-25 20:02] LABS: Glucose, Whole Blood 104 mg/dL (60-115)
[2024-08-25] MEDS: Magnesium Oxide 400 MG TABLET PO (20:17)
[2024-08-25] MEDS: Atorvastatin Calcium 20 MG TABLET PO (20:17)
[2024-08-25] MEDS: Gabapentin 400 MG CAPSULE PO (20:17)
[2024-08-25] MEDS: Acetaminophen 325 MG TABLET 650 MG PO (22:20)
[2024-08-26 00:25] VITALS: RESP 16
[2024-08-26] MEDS: oxyCODONE HCl Immed Release 5 MG TABLET 10 MG PO ×5 (01:17→23:35)
[2024-08-26 04:00] VITALS: BP 168/82; PULSE 79; RESP 17; TEMP 36.7; O2SAT 97
--- NOTE | 2024-08-26 04:20 | PC.NURSE ---
telesitter now in use for this patient as she has urinary urgency and is quite unsteady even with walker. Does not ring call hartmann and sets off bed alarm.
[2024-08-26] MEDS: Acetaminophen 325 MG TABLET 650 MG PO ×2 (04:55→15:06)
--- NOTE | 2024-08-26 06:30 | PC.NURSE ---
Messaged MD Joy as pt c/o poor pain control. Oxycodone not due until 0900 and pt asking for early dose. Provider approves to give 10mg oxycodone early.
[2024-08-26] MEDS: Levothyroxine Sodium 125 MCG TABLET PO (06:55)
[2024-08-26] MEDS: Pantoprazole Sodium 40 MG/10 ML VIAL IVPUSH ×2 (06:55→16:40)
[2024-08-26 07:27] LABS: Anion Gap 15 (12-20); Blood Urea Nitrogen 6 mg/dL (9-16); Calcium 9.2 mg/dL (8.4-10.2); Carbon Dioxide 27 mmol/L (22-29); Chloride 103 mmol/L (96-108); Creatinine Clr Calc Pharmacy 69.7; Estimated Glomerular Filt Rate > 60; Glucose Random 100 mg/dL (60-115); Potassium 3.2 mmol/L (3.3-5.1); Sodium 142 mmol/L (135-145)
[2024-08-26 07:30] LABS: Glucose, Whole Blood 98 mg/dL (60-115)
--- NOTE | 2024-08-26 07:45 | P.PNIM_ITS ---
Subjective Subjective Date of Service: 08/26/24 Interval History: Nausea well-controlled, still no vomiting Denies abdominal pain Complains of chronic neck, shoulder, and arm pain Pt has no other acute or chronic medical complaints Review of Systems Review of Systems: Yes all other systems are reviewed and are negative Physical Exam 2 Vital Signs: Vital Signs: Last Vital Signs Temp 98.1 F 08/26/24 04:00 Pulse 79 08/26/24 04:00 Resp 17 08/26/24 04:00 BP 168/82 H 08/26/24 04:00 Pulse Ox 97 08/26/24 04:00 O2 Del Method Room Air 08/26/24 04:00 BMI result Body Mass Index 26.9 General: AOx3, no acute distress Resp: CTA bilaterally CVS: S1, S2, RRR GI: +BS, NT, no distention Skin: Warm, dry Neuro: Cranial nerves II-XII grossly intact bilaterally. Motor grossly intact bilaterally Extremities: 1+ bilateral pitting edema Psych: Appropriate affect Objective Data Active Medications Acetaminophen (Acetaminophen 325 Mg Tablet) 650 mg PO Q6H PRN PRN Reason: Pain, Mild 1-3,fever,headache Last Admin: 08/26/24 04:55 Dose: 650 mg Documented By: DAVID Atorvastatin Calcium (Atorvastatin Calcium 20 Mg Tablet) 20 mg PO BEDTIME [facility] Last Admin: 08/25/24 20:17 Dose: 20 mg Documented By: SAMANTHA Calcium Carbonate (Calcium Carbonate 750 Mg Tab.Chew) 750 mg PO Q4H PRN PRN Reason: Heartburn Dextrose (Dextrose 50 % 25 Gm/50 Ml Syringe) 25 gm IVPUSH Q15M PRN; Protocol PRN Reason: per Hypoglycemia Standing Ord. Docusate Sodium (Docusate Sodium 100 Mg Capsule) 100 mg PO DAILY PRN PRN Reason: Constipation Furosemide (Furosemide 20 Mg Tablet) 20 mg PO DAILY PRN; Protocol PRN Reason: leg swelling Gabapentin (Gabapentin 400 Mg Capsule) 400 mg PO TID [facility] Last Admin: 08/25/24 20:17 Dose: 400 mg Documented By: SAMANTHA Glucose (Glucose Gel 15 Gm Gel..Gram.) 15 gm PO Q15M PRN; Protocol PRN Reason: per Hypoglycemia Standing Ord. Hydroxyzine HCl (Hydroxyzine Hcl 25 Mg Tablet) 25 mg PO BID PRN PRN Reason: Itching Insulin Human Lispro (Insulin Lispro 100 Unit/Ml 3 Ml Vial) 0 unit SUBCUT QIDACHS [facility]; Protocol Last Admin: 08/26/24 07:34 Dose: Not Given Documented By: LESA Non-Admin Reason: No Insulin Coverage Ipratropium [place] (Ipratropium [place] Rafita 0.06 % 15 Ml [place]) 2 spray NOSTRIL-B DAILY [facility] Levothyroxine Sodium (Levothyroxine Sodium 125 Mcg Tablet) 125 mcg PO DAILY@0630 [facility] Last Admin: 08/26/24 06:55 Dose: 125 mcg Documented By: DAVID Loratadine (Loratadine 10 Mg Tablet) 10 mg PO DAILY [facility] Lorazepam (Lorazepam 0.5 Mg Tablet) 0.5 mg PO TID PRN PRN Reason: Anxiety Last Admin: 08/25/24 23:32 Dose: 0.5 mg Documented By: DAVID Magnesium Hydroxide (Milk Of Magnesia 30 Ml Oral.Susp) 30 ml PO DAILY PRN PRN Reason: Constipation Magnesium Oxide (Magnesium Oxide 400 Mg Tablet) 400 mg PO BID [facility] Last Admin: 08/25/24 20:17 Dose: 400 mg Documented By: SAMANTHA Melatonin (Melatonin 3 Mg Tablet) 6 mg PO BEDTIME PRN PRN Reason: Insomnia Multivitamins/Vitamin C (Multivitamin Tablet) 1 tab PO DAILY [facility] Oxycodone HCl (Oxycodone Hcl Immed Release 5 Mg Tablet) 10 mg PO TID PRN PRN Reason: Pain, Severe (Pain Scale 7-10) Last Admin: 08/26/24 06:37 Dose: 10 mg Documented By: DAVID Pantoprazole Sodium (Pantoprazole Sodium 40 Mg/10 Ml Vial) 40 mg IVPUSH BID@0630,1630 [facility] Last Admin: 08/26/24 06:55 Dose: 40 mg Documented By: DAVID Prochlorperazine Edisylate (Prochlorperazine Edisylate 10 Mg/2 Ml Vial) 10 mg IVPUSH Q4H PRN PRN Reason: Nausea Last Admin: 08/25/24 18:08 Dose: 10 mg Documented By: LESA Sodium Chloride (0.9 % Sodium Chloride Flush 3 Ml Syringe) 3 ml IVFLUSH QSHIFT [facility] Last Admin: 08/26/24 01:23 Dose: Not Given Documented By: DAVID Non-Admin Reason: IV Running Labs 08/25/24 12:16 08/26/24 07:03 Labs: Laboratory Results - last 24 hr 08/25/24 08/25/24 08/25/24 12:16 12:20 13:27 MCV 87.7 MCH 29.3 MCHC 33.4 RDW 13.1 Plt Count 419 H MPV 8.2 L Immature Gran % (Auto) 0.5 H Neut % (Auto) 84.9 H Lymph % (Auto) 7.4 L [place] % (Auto) 6.7 Eos % (Auto) 0.2 Baso % (Auto) 0.3 Lymph # (Auto) 0.8 L [place] # (Auto) 0.7 Eos # (Auto) 0.0 Baso # (Auto) 0.0 Abs Immat Gran (auto) 0.05 H Absolute Neuts (auto) 8.8 H Absolute Nucleated RBC 0.000 Nucleated RBC % (auto) 0.0 Anion Gap 16 Estim Creat Clear Calc 63.4 Estimated GFR > 60 POC Glucose 128 H Random Glucose 125 H Calcium 9.1 Magnesium 1.8 Total Bilirubin 0.4 AST 32 H ALT 20 Alkaline Phosphatase 102 Total Protein 6.7 Albumin 3.7 Lipase 6 L Urine Color Yellow Urine Appearance Clear Urine pH 6.5 Ur Specific [place] 1.015 Urine Protein Negative Urine Glucose (UA) Negative Urine Ketones 40 Urine Blood Negative Urine Nitrite Negative Ur Leukocyte Esterase Negative 08/25/24 08/25/24 08/26/24 18:22 19:51 07:03 MCV MCH MCHC RDW Plt Count MPV Immature Gran % (Auto) Neut % (Auto) Lymph % (Auto) [place] % (Auto) Eos % (Auto) Baso % (Auto) Lymph # (Auto) [place] # (Auto) Eos # (Auto) Baso # (Auto) Abs Immat Gran (auto) Absolute Neuts (auto) Absolute Nucleated RBC Nucleated RBC % (auto) Anion Gap 15 Estim Creat Clear Calc 69.7 Estimated GFR > 60 POC Glucose 106 104 Random Glucose 100 Calcium 9.2 Magnesium Total Bilirubin AST ALT Alkaline Phosphatase Total Protein Albumin Lipase Urine Color Urine Appearance Urine pH Ur Specific [place] Urine Protein Urine Glucose (UA) Urine Ketones Urine Blood Urine Nitrite Ur Leukocyte Esterase 08/26/24 07:16 MCV MCH MCHC RDW Plt Count MPV Immature Gran % (Auto) Neut % (Auto) Lymph % (Auto) [place] % (Auto) Eos % (Auto) Baso % (Auto) Lymph # (Auto) [place] # (Auto) Eos # (Auto) Baso # (Auto) Abs Immat Gran (auto) Absolute Neuts (auto) Absolute Nucleated RBC Nucleated RBC % (auto) Anion Gap Estim Creat Clear Calc Estimated GFR POC Glucose 98 Random Glucose Calcium Magnesium Total Bilirubin AST ALT Alkaline Phosphatase Total Protein Albumin Lipase Urine Color Urine Appearance Urine pH Ur Specific [place] Urine Protein Urine Glucose (UA) Urine Ketones Urine Blood Urine Nitrite Ur Leukocyte Esterase Assessment and Plan (1) Duodenitis: Status: Acute Plan Pt is a 74-year-old female with a PMH significant for?insulin dependent type 2 diabetes, HLD hypothyroidism fibromyalgia, GERD, and hx of duodenal stricture x4 EGD w/dilation (last on 08/01/2024) who presents to the ED with?worsening and intractable nausea since late yesterday afternoon. Pt is admitted to the hospital under for treatment and further evaluation of intractable nausea in the setting of likely acute duodenitis/duodenal ulcer. Intractable nausea Symptom onset Monday afternoon, no vomiting or significant abdominal pain CT with inflammatory changes concerning for duodenitis/duodenal ulcer Currently no nausea or abd pain Continue Protonix IV b.i.d., Compazine IV p.r.n., IVF Clear liquid diet for now, advance as tolerated Will get MRI of abdomen wo/w contrast to better evaluate pancreas and possible duodenal stricture GI consult General surgery consult Insulin-dependent type 2 diabetes Sliding-scale insulin, Lantus at half dosing until full diet restored HLD Continue statin Fibromyalgia Continue gabapentin Hypothyroidism Continue levothyroxine Mood disorder Continue Ativan p.r.n. Full Code DVT Prophylaxis: Pneumatic compression due to possible surgical or GI procedure Pt requires continued hospitalization for continued treatment likely duodenal ulcer with IV Protonix, IV antiemetics, and specialist consultation with both GI and General surgery. Quality Stroke Does the patient have a stroke diagnosis?: No VTE Prior VTE?: No VTE Risk Level:: Medical - moderate - high VTE Device Contraindication: N/A - Device Ordered VTE Drug Contraindication: Treatment Not Indicated
[2024-08-26 08:00] VITALS: BP 158/68; PULSE 58; RESP 18; TEMP 36.1; O2SAT 97
[2024-08-26] MEDS: Lactated Ringers 1,000 ML 100 ML IVCONT ×2 (08:45→22:14)
[2024-08-26] MEDS: Potassium Chloride ER 20 MEQ TAB.ER.PRT PO (08:46)
[2024-08-26] MEDS: Loratadine 10 MG TABLET PO (08:46)
[2024-08-26] MEDS: Magnesium Oxide 400 MG TABLET PO ×2 (08:46→22:13)
[2024-08-26] MEDS: Gabapentin 400 MG CAPSULE PO ×3 (08:46→22:12)
[2024-08-26] MEDS: Multivitamin TABLET 1 TAB PO (08:47)
[2024-08-26] MEDS: 0.9 % Sodium Chloride Flush 3 ML SYRINGE IVFLUSH (08:48)
--- NOTE | 2024-08-26 09:41 | PM.PNGS ---
Subjective Subjective Date of Service: 08/26/24 Interval history: She is well known to me She had laparoscopic cholecystectomy in May, for purulent acute cholecystitis She has had a duodenal stricture and has undergone dilation with Dr. Russo She says she was nauseous over the weekend but denied any vomiting She says she did not eat or drink anything because of her nausea She was therefore admitted for dehydration Currently denies any nausea or vomiting Denies any abdominal pain Physical Exam Vital Signs: Vital Signs: Last Vital Signs Temp 96.9 F 08/26/24 08:00 Pulse 58 08/26/24 08:00 Resp 18 08/26/24 08:00 BP 158/68 H 08/26/24 08:00 Pulse Ox 97 08/26/24 08:00 O2 Del Method Room Air 08/26/24 08:00 BMI result Body Mass Index 26.9 Const: General: comfortable and no acute distress Resp: Effort & Inspection: normal respiratory effort Cardio: Rate: regular rate GI: Palpation (GI): Soft to palpation, not firm, nontender and no guarding Objective Data Active Medications Acetaminophen (Acetaminophen 325 Mg Tablet) 650 mg PO Q6H PRN PRN Reason: Pain, Mild 1-3,fever,headache Last Admin: 08/26/24 04:55 Dose: 650 mg Documented By: DAVID Atorvastatin Calcium (Atorvastatin Calcium 20 Mg Tablet) 20 mg PO BEDTIME [facility] Last Admin: 08/25/24 20:17 Dose: 20 mg Documented By: SAMANTHA Calcium Carbonate (Calcium Carbonate 750 Mg Tab.Chew) 750 mg PO Q4H PRN PRN Reason: Heartburn Dextrose (Dextrose 50 % 25 Gm/50 Ml Syringe) 25 gm IVPUSH Q15M PRN; Protocol PRN Reason: per Hypoglycemia Standing Ord. Docusate Sodium (Docusate Sodium 100 Mg Capsule) 100 mg PO DAILY PRN PRN Reason: Constipation Furosemide (Furosemide 20 Mg Tablet) 20 mg PO DAILY PRN; Protocol PRN Reason: leg swelling Gabapentin (Gabapentin 400 Mg Capsule) 400 mg PO TID [facility] Last Admin: 08/26/24 08:46 Dose: 400 mg Documented By: GRAZIC Glucose (Glucose Gel 15 Gm Gel..Gram.) 15 gm PO Q15M PRN; Protocol PRN Reason: per Hypoglycemia Standing Ord. Hydroxyzine HCl (Hydroxyzine Hcl 25 Mg Tablet) 25 mg PO BID PRN PRN Reason: Itching Lactated Ringer's (Lr) 1,000 mls @ 100 mls/hr IVCONT .Q10H [facility] Last Admin: 08/26/24 08:45 Dose: 100 mls/hr Documented By: LESA Insulin Human Lispro (Insulin Lispro 100 Unit/Ml 3 Ml Vial) 0 unit SUBCUT QIDACHS [facility]; Protocol Last Admin: 08/26/24 07:34 Dose: Not Given Documented By: LESA Non-Admin Reason: No Insulin Coverage Ipratropium [place] (Ipratropium [place] Rafita 0.06 % 15 Ml [place]) 2 spray NOSTRIL-B DAILY [facility] Levothyroxine Sodium (Levothyroxine Sodium 125 Mcg Tablet) 125 mcg PO DAILY@0630 [facility] Last Admin: 08/26/24 06:55 Dose: 125 mcg Documented By: DAVID Loratadine (Loratadine 10 Mg Tablet) 10 mg PO DAILY [facility] Last Admin: 08/26/24 08:46 Dose: 10 mg Documented By: LESA Lorazepam (Lorazepam 0.5 Mg Tablet) 0.5 mg PO TID PRN PRN Reason: Anxiety Last Admin: 08/25/24 23:32 Dose: 0.5 mg Documented By: DAVID Magnesium Hydroxide (Milk Of Magnesia 30 Ml Oral.Susp) 30 ml PO DAILY PRN PRN Reason: Constipation Magnesium Oxide (Magnesium Oxide 400 Mg Tablet) 400 mg PO BID [facility] Last Admin: 08/26/24 08:46 Dose: 400 mg Documented By: LESA Melatonin (Melatonin 3 Mg Tablet) 6 mg PO BEDTIME PRN PRN Reason: Insomnia Multivitamins/Vitamin C (Multivitamin Tablet) 1 tab PO DAILY [facility] Last Admin: 08/26/24 08:47 Dose: 1 tab Documented By: LESA Oxycodone HCl (Oxycodone Hcl Immed Release 5 Mg Tablet) 10 mg PO TID PRN PRN Reason: Pain, Severe (Pain Scale 7-10) Last Admin: 08/26/24 06:37 Dose: 10 mg Documented By: DAVID Pantoprazole Sodium (Pantoprazole Sodium 40 Mg/10 Ml Vial) 40 mg IVPUSH BID@0630,1630 [facility] Last Admin: 08/26/24 06:55 Dose: 40 mg Documented By: DAVID Prochlorperazine Edisylate (Prochlorperazine Edisylate 10 Mg/2 Ml Vial) 10 mg IVPUSH Q4H PRN PRN Reason: Nausea Last Admin: 08/25/24 18:08 Dose: 10 mg Documented By: LESA Sodium Chloride (0.9 % Sodium Chloride Flush 3 Ml Syringe) 3 ml IVFLUSH QSHIFT [facility] Last Admin: 08/26/24 08:48 Dose: 3 ml Documented By: LESA Labs 08/25/24 12:16 08/26/24 07:03 Labs: Laboratory Results - last 24 hr 08/25/24 08/25/24 08/25/24 12:16 12:20 13:27 MCV 87.7 MCH 29.3 MCHC 33.4 RDW 13.1 Plt Count 419 H MPV 8.2 L Immature Gran % (Auto) 0.5 H Neut % (Auto) 84.9 H Lymph % (Auto) 7.4 L [place] % (Auto) 6.7 Eos % (Auto) 0.2 Baso % (Auto) 0.3 Lymph # (Auto) 0.8 L [place] # (Auto) 0.7 Eos # (Auto) 0.0 Baso # (Auto) 0.0 Abs Immat Gran (auto) 0.05 H Absolute Neuts (auto) 8.8 H Absolute Nucleated RBC 0.000 Nucleated RBC % (auto) 0.0 Anion Gap 16 Estim Creat Clear Calc 63.4 Estimated GFR > 60 POC Glucose 128 H Random Glucose 125 H Calcium 9.1 Magnesium 1.8 Total Bilirubin 0.4 AST 32 H ALT 20 Alkaline Phosphatase 102 Total Protein 6.7 Albumin 3.7 Lipase 6 L Urine Color Yellow Urine Appearance Clear Urine pH 6.5 Ur Specific [place] 1.015 Urine Protein Negative Urine Glucose (UA) Negative Urine Ketones 40 Urine Blood Negative Urine Nitrite Negative Ur Leukocyte Esterase Negative 08/25/24 08/25/24 08/26/24 18:22 19:51 07:03 MCV MCH MCHC RDW Plt Count MPV Immature Gran % (Auto) Neut % (Auto) Lymph % (Auto) [place] % (Auto) Eos % (Auto) Baso % (Auto) Lymph # (Auto) [place] # (Auto) Eos # (Auto) Baso # (Auto) Abs Immat Gran (auto) Absolute Neuts (auto) Absolute Nucleated RBC Nucleated RBC % (auto) Anion Gap 15 Estim Creat Clear Calc 69.7 Estimated GFR > 60 POC Glucose 106 104 Random Glucose 100 Calcium 9.2 Magnesium Total Bilirubin AST ALT Alkaline Phosphatase Total Protein Albumin Lipase Urine Color Urine Appearance Urine pH Ur Specific [place] Urine Protein Urine Glucose (UA) Urine Ketones Urine Blood Urine Nitrite Ur Leukocyte Esterase 08/26/24 07:16 MCV MCH MCHC RDW Plt Count MPV Immature Gran % (Auto) Neut % (Auto) Lymph % (Auto) [place] % (Auto) Eos % (Auto) Baso % (Auto) Lymph # (Auto) [place] # (Auto) Eos # (Auto) Baso # (Auto) Abs Immat Gran (auto) Absolute Neuts (auto) Absolute Nucleated RBC Nucleated RBC % (auto) Anion Gap Estim Creat Clear Calc Estimated GFR POC Glucose 98 Random Glucose Calcium Magnesium Total Bilirubin AST ALT Alkaline Phosphatase Total Protein Albumin Lipase Urine Color Urine Appearance Urine pH Ur Specific [place] Urine Protein Urine Glucose (UA) Urine Ketones Urine Blood Urine Nitrite Ur Leukocyte Esterase Procedures Date of Service Date of Service: 08/26/24 Progress Note: A&P Assessment and plan (1) Duodenitis: Status: Acute Assessment and Plan: CAT scan shows changes surrounding the duodenum mostly in the 2nd part Stomach was not distended No nausea or vomiting currently Abdomen is soft, benign and nontender Okay to have sips of clear liquids for now Proton pump inhibitor Consult Dr. Russo I have discussed the above with the patient and her daughter at bedside Time Spent With Patient Time: Total time managing care of this patient today ____ minutes. Quality Stroke Does the patient have a stroke diagnosis?: No VTE Prior VTE?: No VTE Risk Level:: Medical - moderate - high VTE Device Contraindication: N/A - Device Ordered VTE Drug Contraindication: Treatment Not Indicated
--- NOTE | 2024-08-26 09:56 | PM.GICN ---
History of Present Illness Data of Consult Service Date: 08/26/24 Requesting physician: Juma Solis Primary Care Provider: MD STEFF Montiel Reason for consult: Duodenal stricture This is a 74-year-old past medical history of hypothyroidism, diabetes, hypertension, chronic duodenal stricture status post multiple EGD with dilation since June of this year, who presented to the hospital for increased nausea and vomiting. Patient reports that 2 weeks ago, she requested pain medication for neck pain. OxyContin was prescribed, the dose was further increased over the weekend. Progressively, she developed increased nausea, decreased appetite and vomiting. She was brought to the hospital for concern for dehydration. Today, reports feeling much better since admission. No further nausea or vomiting. Has started clear liquid diet. Daughter present at bedside as well. Imaging reviewed, has duodenitis, which was also seen on imaging June 2024. On independent review of imaging, no discernable fat plane could be seen between pancreas head and D2. No PD dilation noted. Most recent EGD 08/01 biopsies negative for dysplasia. She had one set of biopsy 06/24/2024 that showed ulcerated stricture with atypia on histology. Review of Systems Review of Systems: Yes all other systems are reviewed and are negative PMFSH Past Medical History Medical History (Updated 08/26/24 @ 16:14 by Annmarie Fisher MD) Duodenal stricture Duodenitis Bilateral cataracts Schizoaffective disorder Confusion Skin rash Vitamin D deficiency HTN (hypertension) HLD (hyperlipidemia) Cellulitis of leg, left Urinary urgency Arthralgia of shoulder region, left Cervical spondylitis with radiculitis Myofascial pain on left side Depression OCD (obsessive compulsive disorder) DJD (degenerative joint disease) SI (sacroiliac) joint dysfunction Fibromyalgia GERD (gastroesophageal reflux disease) Neuropathy Diabetes Family History Family History Father No problems noted. Mother No problems noted. Surgical History Surgical History (Updated 07/30/24 @ 13:19 by Jennifer Rogers RN) History of esophagogastroduodenoscopy (EGD) History of laparoscopic cholecystectomy (~05/24/24) H/O mastectomy Hx of appendectomy H/O exploratory laparotomy History of surgery Social History Social History Household Members: Spouse Household Members Other:: 1 Housing: House Are you a primary manager long term care to a significant other at home: No Do you presently have visiting nurse or other home services: No Alcohol intake: former Comment: uses cane and walker at home Patient Tobacco Use Status: Never used Tobacco Tobacco use type: Cigarette Smoked in Last 30 Days: No e-Cigarette/Vaping Use: Never Used Second Hand Smoke Exposure: No Use of substances other than those prescribed or required for medical reasons: No Currently Displaying Signs/Symptoms of Drug Intoxication Withdrawal: No Have you been hit, kicked, punched, or otherwise hurt by someone within the past year? If so, by whom?: No Do you feel safe in your current relationship?: Yes Is there a partner from a previous relationship who is making you feel unsafe now?: No Are you made to feel afraid or neglected: No Advance Directives: No Advance Directives Information Provided: Yes Advance Directives Date on File: 06/01/24 Do you have a plan to hurt others: No Plan Recently lost weight without trying: No Eating poorly because of decreased appetite: Yes Nutrition Risks: No Nutritional Risk Patient : No : No Poor oral hygiene: No service: No Current occupational status: retired Cognitive needs: Yes (cane) Hearing needs: Yes (hearing aide) Vision needs: Yes (glasses) Meds Allergies Allergy/AdvReac Type Severity Reaction Status Date / Time insulin detemir Allergy Severe Itching Verified 08/25/24 11:25 [From Levemir U-100 Insulin] adhesive tape Allergy Intermediate Rash from Verified 08/25/24 11:25 medical tape, tegaderm, etc. bupropion [From Wellbutrin] Allergy Intermediate Rash Verified 08/25/24 11:25 codeine [Codeine] Allergy Intermediate Nausea and Verified 08/25/24 11:25 Vomiting escitalopram Allergy Intermediate lethargy Verified 08/25/24 11:25 NSAIDS (Non-Steroidal Allergy Intermediate Swelling Verified 08/25/24 11:25 Anti-Inflamma oxycodone [From OxyContin] Allergy Intermediate Itching Verified 08/25/24 11:25 pregabalin Allergy Intermediate Confusion Verified 08/25/24 11:25 rosuvastatin [Crestor] AdvReac Intermediate joint pain Verified 08/25/24 11:25 Active Medications: Current Medications Acetaminophen (Acetaminophen 325 Mg Tablet) 650 mg PO Q6H PRN PRN Reason: Pain, Mild 1-3,fever,headache Last Admin: 08/26/24 04:55 Dose: 650 mg Atorvastatin Calcium (Atorvastatin Calcium 20 Mg Tablet) 20 mg PO BEDTIME [facility] Last Admin: 08/25/24 20:17 Dose: 20 mg Calcium Carbonate (Calcium Carbonate 750 Mg Tab.Chew) 750 mg PO Q4H PRN PRN Reason: Heartburn Dextrose (Dextrose 50 % 25 Gm/50 Ml Syringe) 25 gm IVPUSH Q15M PRN; Protocol PRN Reason: per Hypoglycemia Standing Ord. Docusate Sodium (Docusate Sodium 100 Mg Capsule) 100 mg PO DAILY PRN PRN Reason: Constipation Furosemide (Furosemide 20 Mg Tablet) 20 mg PO DAILY PRN; Protocol PRN Reason: leg swelling Gabapentin (Gabapentin 400 Mg Capsule) 400 mg PO TID [facility] Last Admin: 08/26/24 08:46 Dose: 400 mg Glucose (Glucose Gel 15 Gm Gel..Gram.) 15 gm PO Q15M PRN; Protocol PRN Reason: per Hypoglycemia Standing Ord. Hydroxyzine HCl (Hydroxyzine Hcl 25 Mg Tablet) 25 mg PO BID PRN PRN Reason: Itching Lactated Ringer's (Lr) 1,000 mls @ 100 mls/hr IVCONT .Q10H [facility] Last Admin: 08/26/24 08:45 Dose: 100 mls/hr Insulin Human Lispro (Insulin Lispro 100 Unit/Ml 3 Ml Vial) 0 unit SUBCUT QIDACHS [facility]; Protocol Last Admin: 08/26/24 07:34 Dose: Not Given Ipratropium [place] (Ipratropium [place] Rafita 0.06 % 15 Ml [place]) 2 spray NOSTRIL-B DAILY [facility] Levothyroxine Sodium (Levothyroxine Sodium 125 Mcg Tablet) 125 mcg PO DAILY@0630 [facility] Last Admin: 08/26/24 06:55 Dose: 125 mcg Loratadine (Loratadine 10 Mg Tablet) 10 mg PO DAILY [facility] Last Admin: 08/26/24 08:46 Dose: 10 mg Lorazepam (Lorazepam 0.5 Mg Tablet) 0.5 mg PO TID PRN PRN Reason: Anxiety Last Admin: 08/25/24 23:32 Dose: 0.5 mg Magnesium Hydroxide (Milk Of Magnesia 30 Ml Oral.Susp) 30 ml PO DAILY PRN PRN Reason: Constipation Magnesium Oxide (Magnesium Oxide 400 Mg Tablet) 400 mg PO BID [facility] Last Admin: 08/26/24 08:46 Dose: 400 mg Melatonin (Melatonin 3 Mg Tablet) 6 mg PO BEDTIME PRN PRN Reason: Insomnia Multivitamins/Vitamin C (Multivitamin Tablet) 1 tab PO DAILY [facility] Last Admin: 08/26/24 08:47 Dose: 1 tab Oxycodone HCl (Oxycodone Hcl Immed Release 5 Mg Tablet) 10 mg PO TID PRN PRN Reason: Pain, Severe (Pain Scale 7-10) Last Admin: 08/26/24 06:37 Dose: 10 mg Pantoprazole Sodium (Pantoprazole Sodium 40 Mg/10 Ml Vial) 40 mg IVPUSH BID@0630,1630 [facility] Last Admin: 08/26/24 06:55 Dose: 40 mg Prochlorperazine Edisylate (Prochlorperazine Edisylate 10 Mg/2 Ml Vial) 10 mg IVPUSH Q4H PRN PRN Reason: Nausea Last Admin: 08/25/24 18:08 Dose: 10 mg Sodium Chloride (0.9 % Sodium Chloride Flush 3 Ml Syringe) 3 ml IVFLUSH QSHIFT [facility] Last Admin: 08/26/24 08:48 Dose: 3 ml Home Medications ?Medication ?Instructions ?Recorded ?Confirmed ?Last Taken ?Type biotin 1 mg capsule 1 mg PO DAILY 05/17/21 08/25/24 2 Weeks Ago History ~06/08/24 blood sugar diagnostic (OneTouch #10 ea 05/27/21 08/15/24 Unknown History Ultra Test strips) levocetirizine 5 mg tablet (Xyzal) 5 mg PO BID Allergy Symptoms 09/09/21 08/25/24 2 Weeks Ago History ~06/08/24 hydroxyzine pamoate 25 mg capsule 25 mg PO BID PRN Itching 05/23/24 08/25/24 Unknown History insulin glargine 100 unit/mL (3 46 unit subcut DAILY 06/01/24 08/25/24 08/01/24 06:50 History mL) subcutaneous pen (Basaglar 23 units KwikPen U-100 Insulin) ipratropium bromide 42 mcg (0.06 2 spray intranasal DAILY Allergy 06/01/24 08/25/24 Unknown History %) nasal spray Symptoms furosemide 20 mg tablet 20 mg PO DAILY PRN leg swelling 06/22/24 08/25/24 Unknown History lorazepam 0.5 mg tablet 0.5 mg PO TID PRN anxiety 06/22/24 08/25/24 Unknown History vitamin B complex 1 cap PO DAILY 06/22/24 08/25/24 2 Weeks Ago History ~06/08/24 docusate sodium 100 mg capsule 100 mg PO DAILY PRN Constipation 08/09/24 08/25/24 Unknown History (Colace) esomeprazole magnesium 20 mg 20 mg PO DAILY 08/25/24 08/25/24 Unknown History capsule,delayed release (Nexium) magnesium oxide 400 mg (241.3 mg 400 mg PO BID 08/25/24 08/25/24 Unknown History magnesium) tablet oxycodone 10 mg tablet 10 mg PO TID PRN Pain 08/25/24 08/25/24 08/24/24 History prochlorperazine maleate 10 mg 10 mg PO Q8H PRN Nausea And 08/25/24 08/25/24 08/25/24 History tablet Vomiting Physical Exam Vital Signs: Vital Signs: Last Vital Signs Temp 96.9 F 08/26/24 08:00 Pulse 58 08/26/24 08:00 Resp 18 08/26/24 08:00 BP 158/68 H 08/26/24 08:00 Pulse Ox 97 08/26/24 08:00 O2 Del Method Room Air 08/26/24 08:00 BMI result Body Mass Index 26.9 Elderly female Hard of hearing Nonicteric Abdomen soft, nondistended Alert and oriented x3, no focal deficits Results Labs 08/25/24 12:16 08/26/24 07:03 Labs: Short CBC 08/25/24 Range/Units 12:16 WBC 10.3 (4.8-10.8) X10*3/uL Hgb 12.4 (12.0-16.0) g/dl Hct 37.1 (37.0-47.0) % Plt Count 419 H (160-400) X10*3/uL BMP 08/25/24 08/26/24 12:16 07:03 Sodium 138 142 Potassium 3.6 3.2 L Chloride 102 103 Carbon Dioxide 24 27 BUN 8 L 6 L Creatinine 0.66 0.60 Calcium 9.1 9.2 Liver Function 08/25/24 Range/Units 12:16 Total Bilirubin 0.4 (0.0-1.0) mg/dL AST 32 H (5-31) U/L ALT 20 (0-31) U/L Alkaline Phosphatase 102 (39-117) U/L Albumin 3.7 (3.5-5.0) g/dL Urine 08/25/24 Range/Units 13:27 Urine Color Yellow Urine Appearance Clear Urine pH 6.5 (5.0-9.0) Ur Specific [place] 1.015 (1.005-1.025) Urine Protein Negative (Neg-Trace) mg/dL Urine Glucose (UA) Negative (Negative) mg/dL Assessment and Plan (1) Duodenitis: Status: Acute (2) Duodenal stricture: Status: Acute (3) Side effect of medication: Status: Acute Plan Suspect current presentation most likely side effect of the recent opiate medication use. Known to cause nausea and vomiting, decreased motility. No evidence of gastric outlet obstruction based on imaging. As outlined above, anatomical boundaries of pancreas could not be delineated from duodenal sweep i.e location of the stricture endoscopically. Plan: -recommend MRI pancreas protocol -diet as tolerated -consider non opiate pain management to reduce GI side effects -limited role of repeat EGD in the setting of already improving symptoms Thank you for allowing me to participate in her care. Please do not hesitate to reach out for any questions or concerns. Procedures Date of Service Date of Service: 08/26/24
[2024-08-26] MEDS: Prochlorperazine Edisylate 10 MG/2 ML VIAL IVPUSH (10:09)
[2024-08-26 12:00] LABS: Glucose, Whole Blood 128 mg/dL (60-115)
--- NOTE | 2024-08-26 14:01 | PM.EVENT ---
Event Note Date of Service: 08/27/24 Event Note: Seen on afternoon rounds Tolerated clear liquids Denies abdominal pain Abdomen is soft and benign Looks well overall We will review plan with GI May benefit from resection of the duodenum down the line - can not rule out neoplastic process I explained to family we may have to send her [facility] Time Spent With Patient Time: Total time managing care of this patient today ____ minutes.
[2024-08-26] MEDS: LORazepam 0.5 MG TABLET PO (15:06)
[2024-08-26 15:22] VITALS: BP 135/78; PULSE 77; RESP 18; TEMP 36.4; O2SAT 99
--- NOTE | 2024-08-26 16:01 | MHC.CM.PN ---
PT REPORTS SHE LIVES WITH HER AND IS INDEPENDENT WITH CARE SHE HAS BEEN USING A WALKER RECENTLY, BUT ALSO HAS A CANE SHE IS ACTIVE WITH [facility] COPY OF HCP REQUESTED PCP: CARIDAD CALABRESE IMM DELIVERED DCP: HOME RESUME [facility] VIA PRIVATE TRANSPORT
[2024-08-26 16:17] LABS: Glucose, Whole Blood 130 mg/dL (60-115)
[2024-08-26 19:48] VITALS: BP 156/70; PULSE 69; RESP 20; TEMP 36; O2SAT 96
[2024-08-26 20:21] LABS: Glucose, Whole Blood 110 mg/dL (60-115)
[2024-08-26] MEDS: Atorvastatin Calcium 20 MG TABLET PO (22:12)
[2024-08-27] MEDS: Acetaminophen 325 MG TABLET 650 MG PO (02:34)
[2024-08-27] MEDS: LORazepam 0.5 MG TABLET PO (02:34)
[2024-08-27 03:24] VITALS: BP 131/60; PULSE 69; RESP 18; TEMP 36.2; O2SAT 99
[2024-08-27] MEDS: Levothyroxine Sodium 125 MCG TABLET PO (06:08)
[2024-08-27] MEDS: Pantoprazole Sodium 40 MG/10 ML VIAL IVPUSH ×2 (06:08→16:51)
[2024-08-27] MEDS: oxyCODONE HCl Immed Release 5 MG TABLET 10 MG PO ×3 (06:17→19:45)
[2024-08-27 06:29] LABS: Anion Gap 14 (12-20); Blood Urea Nitrogen 6 mg/dL (9-16); Calcium 8.9 mg/dL (8.4-10.2); Carbon Dioxide 26 mmol/L (22-29); Chloride 104 mmol/L (96-108); Creatinine Clr Calc Pharmacy 68.6; Estimated Glomerular Filt Rate > 60; Glucose Fasting 109 mg/dL (60-99); Potassium 3.7 mmol/L (3.3-5.1); Sodium 140 mmol/L (135-145)
[2024-08-27 07:17] VITALS: BP 115/56; PULSE 62; RESP 16; TEMP 36.9; O2SAT 97
[2024-08-27 07:35] LABS: Glucose, Whole Blood 111 mg/dL (60-115)
[2024-08-27] MEDS: Multivitamin TABLET 1 TAB PO (07:37)
[2024-08-27] MEDS: Gabapentin 400 MG CAPSULE PO ×3 (07:37→19:44)
[2024-08-27] MEDS: Ipratropium Bromide Nas 0.06 % 15 ML SPRAY 2 SPRAY NOSTRIL-B (07:37)
[2024-08-27] MEDS: Magnesium Oxide 400 MG TABLET PO ×2 (07:37→19:45)
[2024-08-27] MEDS: Loratadine 10 MG TABLET PO (07:37)
--- NOTE | 2024-08-27 09:35 | PM.PNGS ---
Subjective Subjective Date of Service: 08/27/24 Interval history: Feels improved. Tolerating clears without any nausea, vomiting. Denies abd pain. Passing flatus and had BM overnight. Physical Exam Vital Signs: Vital Signs: Last Vital Signs Temp 98.4 F 08/27/24 07:17 Pulse 62 08/27/24 07:17 Resp 16 08/27/24 07:17 BP 115/56 L 08/27/24 07:17 Pulse Ox 97 08/27/24 07:17 O2 Del Method Room Air 08/27/24 07:17 BMI result Body Mass Index 26.9 Const: General: comfortable, no acute distress and alert Resp: Effort & Inspection: normal respiratory effort GI: Other: slightly distended and tympanitic Objective Data Active Medications Acetaminophen (Acetaminophen 325 Mg Tablet) 650 mg PO Q6H PRN PRN Reason: Pain, Mild 1-3,fever,headache Last Admin: 08/27/24 02:34 Dose: 650 mg Documented By: JUAN Atorvastatin Calcium (Atorvastatin Calcium 20 Mg Tablet) 20 mg PO BEDTIME [facility] Last Admin: 08/26/24 22:12 Dose: 20 mg Documented By: JUAN Calcium Carbonate (Calcium Carbonate 750 Mg Tab.Chew) 750 mg PO Q4H PRN PRN Reason: Heartburn Dextrose (Dextrose 50 % 25 Gm/50 Ml Syringe) 25 gm IVPUSH Q15M PRN; Protocol PRN Reason: per Hypoglycemia Standing Ord. Docusate Sodium (Docusate Sodium 100 Mg Capsule) 100 mg PO DAILY PRN PRN Reason: Constipation Furosemide (Furosemide 20 Mg Tablet) 20 mg PO DAILY PRN; Protocol PRN Reason: leg swelling Gabapentin (Gabapentin 400 Mg Capsule) 400 mg PO TID [facility] Last Admin: 08/27/24 07:37 Dose: 400 mg Documented By: ROSINA Glucose (Glucose Gel 15 Gm Gel..Gram.) 15 gm PO Q15M PRN; Protocol PRN Reason: per Hypoglycemia Standing Ord. Hydroxyzine HCl (Hydroxyzine Hcl 25 Mg Tablet) 25 mg PO BID PRN PRN Reason: Itching Lactated Ringer's (Lr) 1,000 mls @ 100 mls/hr IVCONT .Q10H [facility] Last Infusion: 08/26/24 22:41 Dose: 100 mls/hr Documented By: JUAN Insulin Human Lispro (Insulin Lispro 100 Unit/Ml 3 Ml Vial) 0 unit SUBCUT QIDACHS [facility]; Protocol Last Admin: 08/27/24 07:30 Dose: Not Given Documented By: ROSINA Non-Admin Reason: No Insulin Coverage Ipratropium [place] (Ipratropium [place] Rafita 0.06 % 15 Ml [place]) 2 spray NOSTRIL-B DAILY [facility] Last Admin: 08/27/24 07:37 Dose: 2 spray Documented By: ROSINA Levothyroxine Sodium (Levothyroxine Sodium 125 Mcg Tablet) 125 mcg PO DAILY@0630 [facility] Last Admin: 08/27/24 06:08 Dose: 125 mcg Documented By: CORTNEY Loratadine (Loratadine 10 Mg Tablet) 10 mg PO DAILY [facility] Last Admin: 08/27/24 07:37 Dose: 10 mg Documented By: ROSINA Lorazepam (Lorazepam 0.5 Mg Tablet) 0.5 mg PO TID PRN PRN Reason: Anxiety Last Admin: 08/27/24 02:34 Dose: 0.5 mg Documented By: JUAN Magnesium Hydroxide (Milk Of Magnesia 30 Ml Oral.Susp) 30 ml PO DAILY PRN PRN Reason: Constipation Magnesium Oxide (Magnesium Oxide 400 Mg Tablet) 400 mg PO BID [facility] Last Admin: 08/27/24 07:37 Dose: 400 mg Documented By: ROSINA Melatonin (Melatonin 3 Mg Tablet) 6 mg PO BEDTIME PRN PRN Reason: Insomnia Multivitamins/Vitamin C (Multivitamin Tablet) 1 tab PO DAILY [facility] Last Admin: 08/27/24 07:37 Dose: 1 tab Documented By: ROSINA Oxycodone HCl (Oxycodone Hcl Immed Release 5 Mg Tablet) 10 mg PO QID PRN PRN Reason: Pain, Severe (Pain Scale 7-10) Last Admin: 08/27/24 06:17 Dose: 10 mg Documented By: CORTNEY Pantoprazole Sodium (Pantoprazole Sodium 40 Mg/10 Ml Vial) 40 mg IVPUSH BID@0630,1630 [facility] Last Admin: 08/27/24 06:08 Dose: 40 mg Documented By: CORTNEY Prochlorperazine Edisylate (Prochlorperazine Edisylate 10 Mg/2 Ml Vial) 10 mg IVPUSH Q4H PRN PRN Reason: Nausea Last Admin: 08/26/24 10:09 Dose: 10 mg Documented By: LESA Sodium Chloride (0.9 % Sodium Chloride Flush 3 Ml Syringe) 3 ml IVFLUSH QSHIFT [facility] Last Admin: 08/27/24 06:50 Dose: Not Given Documented By: ROSINA Non-Admin Reason: IV Running Labs 08/25/24 12:16 08/27/24 06:06 Labs: Laboratory Results - last 24 hr 08/26/24 08/26/24 08/26/24 11:45 16:12 19:51 Hold Purple Top Anion Gap Estim Creat Clear Calc Estimated GFR POC Glucose 128 H 130 H 110 Fasting Glucose Calcium 08/27/24 08/27/24 06:06 07:21 Hold Purple Top SEE NOTE Anion Gap 14 Estim Creat Clear Calc 68.6 Estimated GFR > 60 POC Glucose 111 Fasting Glucose 109 H Calcium 8.9 Procedures Date of Service Date of Service: 08/27/24 Progress Note: A&P Assessment and plan (1) Duodenal stricture: Status: Acute Plan Feels overall improved and tolerating clears without further nausea, abd pain. Good GI function. Somewhat distended on exam but overall benign. MRI pancreas ordered by GI, await results and further input from GI, Dr. Russo. Advance diet as tolerated. PPI. Time Spent With Patient Time: Total time managing care of this patient today ____ minutes. Quality Stroke Does the patient have a stroke diagnosis?: No VTE Prior VTE?: No VTE Risk Level:: Medical - moderate - high VTE Device Contraindication: N/A - Device Ordered VTE Drug Contraindication: Treatment Not Indicated
[2024-08-27 11:21] LABS: Glucose, Whole Blood 120 mg/dL (60-115)
[2024-08-27] MEDS: Lactated Ringers 1,000 ML 100 ML IVCONT ×2 (12:09→22:30)
--- NOTE | 2024-08-27 13:24 | PM.PNGS ---
Subjective Subjective Date of Service: 08/28/24 Interval history: She feels well today No nausea or vomiting No fever or abdominal pain Physical Exam Vital Signs: Vital Signs: Last Vital Signs Temp 98.4 F 08/27/24 07:17 Pulse 62 08/27/24 07:17 Resp 16 08/27/24 07:17 BP 115/56 L 08/27/24 07:17 Pulse Ox 97 08/27/24 07:17 O2 Del Method Room Air 08/27/24 07:17 BMI result Body Mass Index 26.9 Const: Other: Ambulating, looks well General: comfortable and no acute distress Resp: Effort & Inspection: normal respiratory effort Cardio: Rate: regular rate GI: Palpation (GI): Soft to palpation, not firm and nontender Objective Data Active Medications Acetaminophen (Acetaminophen 325 Mg Tablet) 650 mg PO Q6H PRN PRN Reason: Pain, Mild 1-3,fever,headache Last Admin: 08/27/24 02:34 Dose: 650 mg Documented By: JUAN Atorvastatin Calcium (Atorvastatin Calcium 20 Mg Tablet) 20 mg PO BEDTIME [facility] Last Admin: 08/26/24 22:12 Dose: 20 mg Documented By: JUAN Calcium Carbonate (Calcium Carbonate 750 Mg Tab.Chew) 750 mg PO Q4H PRN PRN Reason: Heartburn Dextrose (Dextrose 50 % 25 Gm/50 Ml Syringe) 25 gm IVPUSH Q15M PRN; Protocol PRN Reason: per Hypoglycemia Standing Ord. Docusate Sodium (Docusate Sodium 100 Mg Capsule) 100 mg PO DAILY PRN PRN Reason: Constipation Furosemide (Furosemide 20 Mg Tablet) 20 mg PO DAILY PRN; Protocol PRN Reason: leg swelling Gabapentin (Gabapentin 400 Mg Capsule) 400 mg PO TID [facility] Last Admin: 08/27/24 07:37 Dose: 400 mg Documented By: ROSINA Glucose (Glucose Gel 15 Gm Gel..Gram.) 15 gm PO Q15M PRN; Protocol PRN Reason: per Hypoglycemia Standing Ord. Hydroxyzine HCl (Hydroxyzine Hcl 25 Mg Tablet) 25 mg PO BID PRN PRN Reason: Itching Lactated Ringer's (Lr) 1,000 mls @ 100 mls/hr IVCONT .Q10H [facility] Last Admin: 08/27/24 12:09 Dose: 100 mls/hr Documented By: ROSINA Insulin Human Lispro (Insulin Lispro 100 Unit/Ml 3 Ml Vial) 0 unit SUBCUT QIDACHS [facility]; Protocol Last Admin: 08/27/24 11:35 Dose: Not Given Documented By: ROSINA Non-Admin Reason: No Insulin Coverage Ipratropium [place] (Ipratropium [place] Rafita 0.06 % 15 Ml [place]) 2 spray NOSTRIL-B DAILY [facility] Last Admin: 08/27/24 07:37 Dose: 2 spray Documented By: ROSINA Levothyroxine Sodium (Levothyroxine Sodium 125 Mcg Tablet) 125 mcg PO DAILY@0630 [facility] Last Admin: 08/27/24 06:08 Dose: 125 mcg Documented By: CORTNEY Loratadine (Loratadine 10 Mg Tablet) 10 mg PO DAILY [facility] Last Admin: 08/27/24 07:37 Dose: 10 mg Documented By: ROSINA Lorazepam (Lorazepam 0.5 Mg Tablet) 0.5 mg PO TID PRN PRN Reason: Anxiety Last Admin: 08/27/24 02:34 Dose: 0.5 mg Documented By: JUAN Magnesium Hydroxide (Milk Of Magnesia 30 Ml Oral.Susp) 30 ml PO DAILY PRN PRN Reason: Constipation Magnesium Oxide (Magnesium Oxide 400 Mg Tablet) 400 mg PO BID [facility] Last Admin: 08/27/24 07:37 Dose: 400 mg Documented By: ROSINA Melatonin (Melatonin 3 Mg Tablet) 6 mg PO BEDTIME PRN PRN Reason: Insomnia Multivitamins/Vitamin C (Multivitamin Tablet) 1 tab PO DAILY [facility] Last Admin: 08/27/24 07:37 Dose: 1 tab Documented By: ROSINA Oxycodone HCl (Oxycodone Hcl Immed Release 5 Mg Tablet) 10 mg PO QID PRN PRN Reason: Pain, Severe (Pain Scale 7-10) Last Admin: 08/27/24 12:44 Dose: 10 mg Documented By: ROSINA Pantoprazole Sodium (Pantoprazole Sodium 40 Mg/10 Ml Vial) 40 mg IVPUSH BID@0630,1630 [facility] Last Admin: 08/27/24 06:08 Dose: 40 mg Documented By: CORTNEY Prochlorperazine Edisylate (Prochlorperazine Edisylate 10 Mg/2 Ml Vial) 10 mg IVPUSH Q4H PRN PRN Reason: Nausea Last Admin: 08/26/24 10:09 Dose: 10 mg Documented By: LESA Sodium Chloride (0.9 % Sodium Chloride Flush 3 Ml Syringe) 3 ml IVFLUSH QSHIFT [facility] Last Admin: 08/27/24 06:50 Dose: Not Given Documented By: ROSINA Non-Admin Reason: IV Running Labs 08/25/24 12:16 08/27/24 06:06 Labs: Laboratory Results - last 24 hr 08/26/24 08/26/24 08/27/24 16:12 19:51 06:06 Hold Purple Top SEE NOTE Anion Gap 14 Estim Creat Clear Calc 68.6 Estimated GFR > 60 POC Glucose 130 H 110 Fasting Glucose 109 H Calcium 8.9 08/27/24 08/27/24 07:21 11:18 Hold Purple Top Anion Gap Estim Creat Clear Calc Estimated GFR POC Glucose 111 120 H Fasting Glucose Calcium Procedures Date of Service Date of Service: 08/28/24 Progress Note: A&P Assessment and plan (1) Duodenal stricture: Status: Acute Assessment and Plan: She is doing very well Abdominal exam very benign She is waiting for an MRI Otherwise she can start on full liquids Discussed with Dr. Russo of GI -previous endoscopies shows suspicious pathology in the stricture I explained to the patient that I will have to refer her to [facility] further management and possible surgical resection She is comfortable with the Time Spent With Patient Time: Total time managing care of this patient today ____ minutes. Quality Stroke Does the patient have a stroke diagnosis?: No VTE Prior VTE?: No VTE Risk Level:: Medical - moderate - high VTE Device Contraindication: N/A - Device Ordered VTE Drug Contraindication: Treatment Not Indicated
--- NOTE | 2024-08-27 15:54 | P.PNIM_ITS ---
Subjective Subjective Date of Service: 08/27/24 Interval History: no abd pain nausea resolved tolerating clears awaiting MRI Review of Systems Review of Systems: Yes all other systems are reviewed and are negative Physical Exam 2 Vital Signs: Vital Signs: Last Vital Signs Temp 98.4 F 08/27/24 07:17 Pulse 62 08/27/24 07:17 Resp 16 08/27/24 07:17 BP 115/56 L 08/27/24 07:17 Pulse Ox 97 08/27/24 07:17 O2 Del Method Room Air 08/27/24 07:17 BMI result Body Mass Index 26.9 Gen: in no acute distress HEENT: sclera anicteric, moist mucus membranes Neck: supple Lungs: clear to auscultation bilaterally Heart: regular rate and rhythm, no murmurs Abd: soft, non-tender, non-distended Ext: no edema Skin: warm/well-perfused Neuro: alert and oriented x3, no focal findings Psych: appropriate affect Objective Data Active Medications Acetaminophen (Acetaminophen 325 Mg Tablet) 650 mg PO Q6H PRN PRN Reason: Pain, Mild 1-3,fever,headache Last Admin: 08/27/24 02:34 Dose: 650 mg Documented By: JUAN Atorvastatin Calcium (Atorvastatin Calcium 20 Mg Tablet) 20 mg PO BEDTIME [facility] Last Admin: 08/26/24 22:12 Dose: 20 mg Documented By: JUAN Calcium Carbonate (Calcium Carbonate 750 Mg Tab.Chew) 750 mg PO Q4H PRN PRN Reason: Heartburn Dextrose (Dextrose 50 % 25 Gm/50 Ml Syringe) 25 gm IVPUSH Q15M PRN; Protocol PRN Reason: per Hypoglycemia Standing Ord. Docusate Sodium (Docusate Sodium 100 Mg Capsule) 100 mg PO DAILY PRN PRN Reason: Constipation Furosemide (Furosemide 20 Mg Tablet) 20 mg PO DAILY PRN; Protocol PRN Reason: leg swelling Gabapentin (Gabapentin 400 Mg Capsule) 400 mg PO TID [facility] Last Admin: 08/27/24 07:37 Dose: 400 mg Documented By: ROSINA Glucose (Glucose Gel 15 Gm Gel..Gram.) 15 gm PO Q15M PRN; Protocol PRN Reason: per Hypoglycemia Standing Ord. Hydroxyzine HCl (Hydroxyzine Hcl 25 Mg Tablet) 25 mg PO BID PRN PRN Reason: Itching Lactated Ringer's (Lr) 1,000 mls @ 100 mls/hr IVCONT .Q10H [facility] Last Admin: 08/27/24 12:09 Dose: 100 mls/hr Documented By: ROSINA Insulin Human Lispro (Insulin Lispro 100 Unit/Ml 3 Ml Vial) 0 unit SUBCUT QIDACHS [facility]; Protocol Last Admin: 08/27/24 11:35 Dose: Not Given Documented By: ROSINA Non-Admin Reason: No Insulin Coverage Ipratropium [place] (Ipratropium [place] Rafita 0.06 % 15 Ml [place]) 2 spray NOSTRIL-B DAILY [facility] Last Admin: 08/27/24 07:37 Dose: 2 spray Documented By: ROSINA Levothyroxine Sodium (Levothyroxine Sodium 125 Mcg Tablet) 125 mcg PO DAILY@0630 [facility] Last Admin: 08/27/24 06:08 Dose: 125 mcg Documented By: CORTNEY Loratadine (Loratadine 10 Mg Tablet) 10 mg PO DAILY [facility] Last Admin: 08/27/24 07:37 Dose: 10 mg Documented By: ROSINA Lorazepam (Lorazepam 0.5 Mg Tablet) 0.5 mg PO TID PRN PRN Reason: Anxiety Last Admin: 08/27/24 02:34 Dose: 0.5 mg Documented By: JUAN Magnesium Hydroxide (Milk Of Magnesia 30 Ml Oral.Susp) 30 ml PO DAILY PRN PRN Reason: Constipation Magnesium Oxide (Magnesium Oxide 400 Mg Tablet) 400 mg PO BID [facility] Last Admin: 08/27/24 07:37 Dose: 400 mg Documented By: ROSINA Melatonin (Melatonin 3 Mg Tablet) 6 mg PO BEDTIME PRN PRN Reason: Insomnia Multivitamins/Vitamin C (Multivitamin Tablet) 1 tab PO DAILY [facility] Last Admin: 08/27/24 07:37 Dose: 1 tab Documented By: ROSINA Oxycodone HCl (Oxycodone Hcl Immed Release 5 Mg Tablet) 10 mg PO QID PRN PRN Reason: Pain, Severe (Pain Scale 7-10) Last Admin: 08/27/24 12:44 Dose: 10 mg Documented By: ROSINA Pantoprazole Sodium (Pantoprazole Sodium 40 Mg/10 Ml Vial) 40 mg IVPUSH BID@0630,1630 [facility] Last Admin: 08/27/24 06:08 Dose: 40 mg Documented By: MARYQC Prochlorperazine Edisylate (Prochlorperazine Edisylate 10 Mg/2 Ml Vial) 10 mg IVPUSH Q4H PRN PRN Reason: Nausea Last Admin: 08/26/24 10:09 Dose: 10 mg Documented By: LESA Sodium Chloride (0.9 % Sodium Chloride Flush 3 Ml Syringe) 3 ml IVFLUSH QSHIFT [facility] Last Admin: 08/27/24 06:50 Dose: Not Given Documented By: ROSINA Non-Admin Reason: IV Running Labs 08/25/24 12:16 08/27/24 06:06 Labs: Laboratory Results - last 24 hr 08/26/24 08/26/24 08/27/24 16:12 19:51 06:06 Hold Purple Top SEE NOTE Anion Gap 14 Estim Creat Clear Calc 68.6 Estimated GFR > 60 POC Glucose 130 H 110 Fasting Glucose 109 H Calcium 8.9 08/27/24 08/27/24 07:21 11:18 Hold Purple Top Anion Gap Estim Creat Clear Calc Estimated GFR POC Glucose 111 120 H Fasting Glucose Calcium Assessment and Plan (1) Duodenitis: Status: Acute Plan d3 for 74yo F with DM2, HLD, hypothyroidism, fibromyalgia, GERD, and hx duodenal stricture s/p EGD/dilation x4 [last 08/01/24] presenting with intractable nausea due to duodenitis/duodenal ulcer duondenitis/duodenal ulcer - MRI pancreatic protocol per GI - GI + Gen Surg following - IV PPI - advance diet to full liquids and then eventually to solids - will likely be referred [facility] as outpt for consideration of resection of involved duodenum DM2 - leyla-dose lipsro HLD - statin FM - gabapentin hypothyroidism - continue LT4 mood disorder - prn lorazepam VTE ppx - SCDs dispo - eventual home In my clinical judgment, the patient requires continued inpatient hospitalization for the following reasons: GI/surg evaluation, advanced imaging Total time managing care of this patient today: 35 minutes. Quality Stroke Does the patient have a stroke diagnosis?: No VTE Prior VTE?: No VTE Risk Level:: Medical - moderate - high VTE Device Contraindication: N/A - Device Ordered VTE Drug Contraindication: Treatment Not Indicated
[2024-08-27 16:00] VITALS: BP 148/69; PULSE 75; RESP 18; TEMP 36; O2SAT 98
[2024-08-27] MEDS: gadobutroL 7.5 ML VIAL IVPUSH (16:20)
[2024-08-27 16:31] LABS: Glucose, Whole Blood 132 mg/dL (60-115)
[2024-08-27] MEDS: 0.9 % Sodium Chloride Flush 3 ML SYRINGE IVFLUSH ×2 (16:45→19:43)
[2024-08-27] MEDS: Prochlorperazine Edisylate 10 MG/2 ML VIAL IVPUSH (18:29)
[2024-08-27 19:37] VITALS: BP 148/75; RESP 18; TEMP 36.1; O2SAT 97
[2024-08-27] MEDS: Atorvastatin Calcium 20 MG TABLET PO (19:44)
[2024-08-27 19:48] LABS: Glucose, Whole Blood 175 mg/dL (60-115)
[2024-08-27] MEDS: Insulin Lispro 100 UNIT/ML 3 ML VIAL SUBCUT (19:51)
[2024-08-28] MEDS: LORazepam 0.5 MG TABLET PO (00:19)
[2024-08-28] MEDS: oxyCODONE HCl Immed Release 5 MG TABLET 10 MG PO ×3 (03:22→14:25)
[2024-08-28 03:45] VITALS: BP 142/67; PULSE 77; RESP 18; TEMP 35.9; O2SAT 95
[2024-08-28] MEDS: Levothyroxine Sodium 125 MCG TABLET PO (06:17)
[2024-08-28] MEDS: Pantoprazole Sodium 40 MG/10 ML VIAL IVPUSH ×2 (06:17→16:13)
[2024-08-28 07:27] VITALS: BP 138/65; PULSE 64; RESP 14; TEMP 36.5; O2SAT 96
[2024-08-28 07:39] LABS: Glucose, Whole Blood 122 mg/dL (60-115)
[2024-08-28] MEDS: Gabapentin 400 MG CAPSULE PO ×2 (07:39→14:24)
[2024-08-28] MEDS: Magnesium Oxide 400 MG TABLET PO (07:39)
[2024-08-28] MEDS: Multivitamin TABLET 1 TAB PO (07:39)
[2024-08-28] MEDS: Loratadine 10 MG TABLET PO (07:40)
[2024-08-28] MEDS: Ipratropium Bromide Nas 0.06 % 15 ML SPRAY 2 SPRAY NOSTRIL-B (08:55)
[2024-08-28 11:02] LABS: Glucose, Whole Blood 186 mg/dL (60-115)
[2024-08-28] MEDS: Acetaminophen 325 MG TABLET 650 MG PO (11:28)
[2024-08-28] MEDS: Insulin Lispro 100 UNIT/ML 3 ML VIAL SUBCUT (11:56)
--- NOTE | 2024-08-28 12:50 | MHC.CM.PN ---
EMR REVIEWED AND PER MD ROUNDS, PT MAY DC LATER TODAY IF ABLE TO TOLERATE ADVANCED DIET. CM WILL CONTINUE TO FOLLOW FOR ANY CHANGE TO PLAN.
[2024-08-28] MEDS: 0.9 % Sodium Chloride Flush 3 ML SYRINGE IVFLUSH (14:27)
[2024-08-28 15:08] VITALS: BP 126/58; PULSE 66; RESP 14; TEMP 36.8; O2SAT 97
[2024-08-28 16:05] LABS: Glucose, Whole Blood 104 mg/dL (60-115)
--- NOTE | 2024-08-28 17:49 | HO.PM.IMPN ---
Subjective Subjective Date of Service: 08/28/24 Interval History: got nauseous with cream of wheat last night but was able to eat it along with pudding this AM no abd pain Review of Systems Review of Systems: Yes all other systems are reviewed and are negative Physical Exam Vital Signs: Vital Signs: Last Vital Signs Temp 98.3 F 08/28/24 15:08 Pulse 66 08/28/24 15:08 Resp 14 08/28/24 15:08 BP 126/58 L 08/28/24 15:08 Pulse Ox 97 08/28/24 15:08 O2 Del Method Room Air 08/28/24 15:08 BMI result Body Mass Index 26.9 Gen: in no acute distress HEENT: sclera anicteric, moist mucus membranes Neck: supple Lungs: clear to auscultation bilaterally Heart: regular rate and rhythm, no murmurs Abd: soft, non-tender, non-distended Ext: no edema Skin: warm/well-perfused Neuro: alert and oriented x3, no focal findings Psych: appropriate affect Objective Data Active Medications Acetaminophen (Acetaminophen 325 Mg Tablet) 650 mg PO Q6H PRN PRN Reason: Pain, Mild 1-3,fever,headache Last Admin: 08/28/24 11:28 Dose: 650 mg Documented By: DORI Atorvastatin Calcium (Atorvastatin Calcium 20 Mg Tablet) 20 mg PO BEDTIME [facility] Last Admin: 08/27/24 19:44 Dose: 20 mg Documented By: JUAN Calcium Carbonate (Calcium Carbonate 750 Mg Tab.Chew) 750 mg PO Q4H PRN PRN Reason: Heartburn Dextrose (Dextrose 50 % 25 Gm/50 Ml Syringe) 25 gm IVPUSH Q15M PRN; Protocol PRN Reason: per Hypoglycemia Standing Ord. Docusate Sodium (Docusate Sodium 100 Mg Capsule) 100 mg PO DAILY PRN PRN Reason: Constipation Furosemide (Furosemide 20 Mg Tablet) 20 mg PO DAILY PRN; Protocol PRN Reason: leg swelling Gabapentin (Gabapentin 400 Mg Capsule) 400 mg PO TID [facility] Last Admin: 08/28/24 14:24 Dose: 400 mg Documented By: FATMATA Glucose (Glucose Gel 15 Gm Gel..Gram.) 15 gm PO Q15M PRN; Protocol PRN Reason: per Hypoglycemia Standing Ord. Hydroxyzine HCl (Hydroxyzine Hcl 25 Mg Tablet) 25 mg PO BID PRN PRN Reason: Itching Insulin Human Lispro (Insulin Lispro 100 Unit/Ml 3 Ml Vial) 0 unit SUBCUT QIDACHS [facility]; Protocol Last Admin: 08/28/24 16:08 Dose: Not Given Documented By: ROSINA Non-Admin Reason: No Insulin Coverage Ipratropium [place] (Ipratropium [place] Rafita 0.06 % 15 Ml [place]) 2 spray NOSTRIL-B DAILY [facility] Last Admin: 08/28/24 08:55 Dose: 2 spray Documented By: FATMATA Levothyroxine Sodium (Levothyroxine Sodium 125 Mcg Tablet) 125 mcg PO DAILY@0630 [facility] Last Admin: 08/28/24 06:17 Dose: 125 mcg Documented By: JUAN Loratadine (Loratadine 10 Mg Tablet) 10 mg PO DAILY [facility] Last Admin: 08/28/24 07:40 Dose: 10 mg Documented By: FATMATA Lorazepam (Lorazepam 0.5 Mg Tablet) 0.5 mg PO TID PRN PRN Reason: Anxiety Last Admin: 08/28/24 00:19 Dose: 0.5 mg Documented By: JUAN Magnesium Hydroxide (Milk Of Magnesia 30 Ml Oral.Susp) 30 ml PO DAILY PRN PRN Reason: Constipation Magnesium Oxide (Magnesium Oxide 400 Mg Tablet) 400 mg PO BID [facility] Last Admin: 08/28/24 07:39 Dose: 400 mg Documented By: FATMATA Melatonin (Melatonin 3 Mg Tablet) 6 mg PO BEDTIME PRN PRN Reason: Insomnia Multivitamins/Vitamin C (Multivitamin Tablet) 1 tab PO DAILY [facility] Last Admin: 08/28/24 07:39 Dose: 1 tab Documented By: FATMATA Oxycodone HCl (Oxycodone Hcl Immed Release 5 Mg Tablet) 10 mg PO QID PRN PRN Reason: Pain, Severe (Pain Scale 7-10) Last Admin: 08/28/24 14:25 Dose: 10 mg Documented By: FATMATA Prochlorperazine Edisylate (Prochlorperazine Edisylate 10 Mg/2 Ml Vial) 10 mg IVPUSH Q4H PRN PRN Reason: Nausea Last Admin: 08/27/24 18:29 Dose: 10 mg Documented By: ROSINA Sodium Chloride (0.9 % Sodium Chloride Flush 3 Ml Syringe) 3 ml IVFLUSH QSHIFT [facility]ENN Last Admin: 08/28/24 14:27 Dose: 3 ml Documented By: FATMATA Labs 08/25/24 12:16 08/27/24 06:06 Labs: Laboratory Results - last 24 hr 08/27/24 08/28/24 08/28/24 19:45 07:35 10:56 POC Glucose 175 H 122 H 186 H 08/28/24 16:01 POC Glucose 104 Assessment and Plan (1) Duodenitis: Status: Acute Plan d4 for 74yo F with DM2, HLD, hypothyroidism, fibromyalgia, GERD, and hx duodenal stricture s/p EGD/dilation x4 [last 08/01/24] presenting with intractable nausea due to duodenitis/duodenal ulcer duondenitis/duodenal ulcer - MRI abd: 1. Duodenitis associated with a small focus of duodenal ulceration. Luminal narrowing is present in the area of inflammation. A developing stricture is not excluded. 2. Subcentimeter focus of enhancement in the region of duodenal inflammation. This may be related to the inflammatory process. A polyp is not excluded. This could be further evaluated with EGD. 3. There are also changes of gastritis.' - change IV to PO PPI - advance to solids - Dr Smith will refer to [facility] as outpt for consideration of resection of involved duodenum DM2 - leyla-dose lipsro HLD - statin FM - gabapentin hypothyroidism - continue LT4 mood disorder - prn lorazepam VTE ppx - SCDs dispo - eventual home In my clinical judgment, the patient requires continued inpatient hospitalization for the following reasons: advancing diet Total time managing care of this patient today: 35 minutes. Quality Stroke Does the patient have a stroke diagnosis?: No VTE Prior VTE?: No VTE Risk Level:: Medical - moderate - high VTE Device Contraindication: N/A - Device Ordered VTE Drug Contraindication: Treatment Not Indicated
[2024-08-28] MEDS: Omeprazole 40 MG CAPSULE.DR PO (18:29)
--- NOTE | 2024-08-28 19:28 | PM.DS ---
DS: Providers Provider Date of Service: 08/28/24 Date of admission: 08/25/24 17:38 Date of discharge: 08/28/24 Primary care physician: Jaye Ortega MD Consults: 08/25/24 14:28 Consult to Gastroenterology Routine Consulting Provider: Annmarie Fisher Reason for consultation: Hx of partial duodenal obstruction, ?Acute duodenal ulcer Consult to General Surgery Routine Consulting Provider: [facility] Reason for consultation: Hx of partial duodenal obstruction, ?Acute duodenal ulcer DS: Diagnosis Discharge Diagnosis (1) Duodenitis: Status: Acute (2) Duodenal stricture: Status: Acute DS: Summary Hospital Course Hospital Course: From the history and physical by the admitting hospitalist, DARRIUS Fernandez, 08/25/24: Pt is a 74-year-old female with a PMH significant for?insulin dependent type 2 diabetes, HLD hypothyroidism fibromyalgia, GERD, and hx of duodenal stricture x4 EGD w/dilation (last on 08/01/2024) who presents to the ED with?worsening and intractable nausea since late yesterday afternoon. Pt with a long hx of duodenal stricture that has required multiple EGDs with balloon dilation, most recently on 08/01/[address] Russo. Postop appointment on 08/09/2024 indicated stricture looked similar and not improved, and plan was made to refer to Dr. Smith in general surgery for additional workup. Pt reports was in her normal state of health and eating and drinking without issue up until yesterday afternoon when she developed significant and intractable nausea without vomiting. No abdominal pain. Reports 1 episode of diarrhea after IV contrast, but none prior to that. Chronic SOB at baseline. No chest pain/pressure, palpitations. Denies fever, chills. In the ED pt was hypertensive up to 166/59, vitals otherwise stable and WNL. Labs were grossly unremarkable and around baseline for pt. No leukocytosis. Stable H&H. No significant electrolyte abnormalities. Renal function baseline. Hepatic function WNL. Lipase WNL. UA negative for UTI. CTA of abdomen and pelvis showed inflammatory changes along 2nd portion of the duodenum with suspected involvement of duodenal diverticulum, suspicious for ulceration. . Pt was treated in the ED with Compazine and IVF. Pt is admitted to the hospital under for treatment and further evaluation of intractable nausea in the setting of likely acute duodenitis/duodenal ulcer. 74yo F with DM2, HLD, hypothyroidism, fibromyalgia, GERD, and hx duodenal stricture s/p EGD/dilation x4 [last 08/01/24] presenting with intractable nausea due to duodenitis/duodenal ulcer but was already getting better symptom-dos santos upon admission to the medical-surgical floor. General Surgery and Gastroenterology were consulted. An MRI of the abdomen showed: 1. Duodenitis associated with a small focus of duodenal ulceration. Luminal narrowing is present in the area of inflammation. A developing stricture is not excluded. 2. Subcentimeter focus of enhancement in the region of duodenal inflammation. This may be related to the inflammatory process. A polyp is not excluded. This could be further evaluated with EGD. 3. There are also changes of gastritis.' She was treated with antiemetics and IV PPI. Diet was gradually advanced to clear, then full liquids, then solids with good tolerance. PPI was switched back to PO. She was discharged home and Dr Smith will refer her to [facility] as an outpatient for consideration of resection of involved duodenum. Time Attestation Discharge Coordination Time (in mins): 45 Quality: Safe Use of Opioids Does Pt have an Active Cancer Diagnosis on the Problem List?: No Quality: Stroke Does the patient have a stroke diagnosis?: No Physical Exam Vital Signs: Vital Signs: Last Vital Signs Temp 98.3 F 08/28/24 15:08 Pulse 66 08/28/24 15:08 Resp 14 08/28/24 15:08 BP 126/58 L 08/28/24 15:08 Pulse Ox 97 08/28/24 15:08 O2 Del Method Room Air 08/28/24 15:08 BMI result Body Mass Index 26.9 Gen: in no acute distress HEENT: sclera anicteric, moist mucus membranes Neck: supple Lungs: clear to auscultation bilaterally Heart: regular rate and rhythm, no murmurs Abd: soft, non-tender, non-distended Ext: no edema Skin: warm/well-perfused Neuro: alert and oriented x3, no focal findings Psych: appropriate affect DS: Data Data Completed and Pending Completed studies during hospitalization [Text1]: Laboratory Results WBC 10.3 X10*3/uL (4.8-10.8) 08/25/24 12:16 RBC 4.23 X10*6/uL (4.20-5.50) 08/25/24 12:16 Hgb 12.4 g/dl (12.0-16.0) 08/25/24 12:16 Hct 37.1 % (37.0-47.0) 08/25/24 12:16 MCV 87.7 fL (80.0-98.0) 08/25/24 12:16 MCH 29.3 pg (27.0-33.0) 08/25/24 12:16 MCHC 33.4 g/dl (31.0-35.0) 08/25/24 12:16 RDW 13.1 % (11.0-16.0) 08/25/24 12:16 Plt Count 419 X10*3/uL (160-400) H 08/25/24 12:16 MPV 8.2 fL (9.4-12.3) L 08/25/24 12:16 Immature Gran % (Auto) 0.5 % (0.0-0.4) H 08/25/24 12:16 Neut % (Auto) 84.9 % (45-73) H 08/25/24 12:16 Lymph % (Auto) 7.4 % (20-40) L 08/25/24 12:16 [place] % (Auto) 6.7 % (2-11) 08/25/24 12:16 Eos % (Auto) 0.2 % (0-4) 08/25/24 12:16 Baso % (Auto) 0.3 % (0-2) 08/25/24 12:16 Lymph # (Auto) 0.8 X10*3/uL (1.2-4.9) L 08/25/24 12:16 [place] # (Auto) 0.7 X10*3/uL (0.1-1.2) 08/25/24 12:16 Eos # (Auto) 0.0 X10*3/uL (0.0-0.4) 08/25/24 12:16 Baso # (Auto) 0.0 X10*3/uL (0.0-0.2) 08/25/24 12:16 Abs Immat Gran (auto) 0.05 X10*3/uL (0.00-0.03) H 08/25/24 12:16 Absolute Neuts (auto) 8.8 x10*3/uL (2.0-8.3) H 08/25/24 12:16 Absolute Nucleated RBC 0.000 X10*3/uL (0.0-0.012) 08/25/24 12:16 Nucleated RBC % (auto) 0.0 /100WBC (0.0-0.2) 08/25/24 12:16 Hold Purple Top SEE NOTE 08/27/24 06:06 Sodium 140 mmol/L (135-145) 08/27/24 06:06 Potassium 3.7 mmol/L (3.3-5.1) 08/27/24 06:06 Chloride 104 mmol/L (96-108) 08/27/24 06:06 Carbon Dioxide 26 mmol/L (22-29) 08/27/24 06:06 Anion Gap 14 (12-20) 08/27/24 06:06 BUN 6 mg/dL (9-16) L 08/27/24 06:06 Creatinine 0.61 mg/dL (0.5-1.4) 08/27/24 06:06 Estim Creat Clear Calc 68.6 08/27/24 06:06 Estimated GFR > 60 08/27/24 06:06 POC Glucose 104 mg/dL (60-115) 08/28/24 16:01 Random Glucose 100 mg/dL (60-115) 08/26/24 07:03 Fasting Glucose 109 mg/dL (60-99) H 08/27/24 06:06 Calcium 8.9 mg/dL (8.4-10.2) 08/27/24 06:06 Magnesium 1.8 mg/dL (1.6-2.6) 08/25/24 12:16 Total Bilirubin 0.4 mg/dL (0.0-1.0) 08/25/24 12:16 AST 32 U/L (5-31) H 08/25/24 12:16 ALT 20 U/L (0-31) 08/25/24 12:16 Alkaline Phosphatase 102 U/L (39-117) 08/25/24 12:16 Total Protein 6.7 g/dL (6.5-8.0) 08/25/24 12:16 Albumin 3.7 g/dL (3.5-5.0) 08/25/24 12:16 Lipase 6 U/L (8-78) L 08/25/24 12:16 Urine Color Yellow 08/25/24 13:27 Urine Appearance Clear 08/25/24 13:27 Urine pH 6.5 (5.0-9.0) 08/25/24 13:27 Ur Specific [place] 1.015 (1.005-1.025) 08/25/24 13:27 Urine Protein Negative mg/dL (Neg-Trace) 08/25/24 13:27 Urine Glucose (UA) Negative mg/dL (Negative) 08/25/24 13:27 Urine Ketones 40 mg/dL (Negative) 08/25/24 13:27 Urine Blood Negative (Negative) 08/25/24 13:27 Urine Nitrite Negative (Negative) 08/25/24 13: Ur Leukocyte Esterase Negative (Negative) 08/25/24 13:27 Labs on day of discharge: Laboratory Results - last 24 hr 08/27/24 08/28/24 08/28/24 19:45 07:35 10:56 POC Glucose 175 H 122 H 186 H 08/28/24 16:01 POC Glucose 104 Discharge Plan Discharge Anticipated Discharge Date/Time: 08/28/24 19:24 Patient Disposition: Home, Self-Care Discharge Diagnosis: duodenitis, duodenal stricture Referrals: Jaye Ortega MD [Primary Care Provider] - 1 Week Jair Smith MD [Physician] - 1 Week Discharge Medications: New ondansetron 4 mg tablet,disintegrating 4 mg PO Q4H PRN (Reason: nausea and vomiting) Qty: 14 0RF Continued (DME) OneTouch Ultra Test Strip See Rx Instructions .Route Qty: 100 2RF Rx Instructions: check BS 2-3x/day gabapentin 400 mg capsule 400 mg PO TID 30 Days Qty: 90 1RF simvastatin 40 mg tablet 40 mg PO BEDTIME Qty: 90 0RF levothyroxine 125 mcg tablet 125 mcg PO DAILY@0630 Qty: 90 1RF hydroxyzine pamoate 25 mg capsule 25 mg PO BID PRN (Reason: Itching) acetaminophen 325 mg Tablet 650 mg PO Q6H PRN (Reason: Pain, Mild 1-3,Fever,Headache) Qty: 30 0RF insulin glargine [Basaglar KwikPen U-100 Insulin] 100 unit/mL (3 mL) insulin pen 46 unit subcut DAILY ipratropium bromide 42 mcg (0.06 %) spray,non-aerosol 2 spray intranasal DAILY lorazepam 0.5 mg tablet 0.5 mg PO TID PRN (Reason: anxiety) furosemide 20 mg Tablet 20 mg PO DAILY PRN (Reason: leg swelling) vitamin B complex Capsule 1 cap PO DAILY pantoprazole [Protonix] 40 mg tablet,delayed release (DR/EC) 40 mg PO DAILY@0630 Qty: 60 0RF prochlorperazine maleate 10 mg tablet 10 mg PO Q8H PRN (Reason: Nausea And Vomiting) oxycodone 10 mg tablet 10 mg PO TID PRN (Reason: Pain) magnesium oxide 400 mg (241.3 mg magnesium) tablet 400 mg PO BID biotin 1 mg capsule 1 mg PO DAILY levocetirizine [Xyzal] 5 mg tablet 5 mg PO BID (DME) OneTouch Ultra Test Strip See Rx Instructions Not Applicable TID Qty: 10 Rx Instructions: As directed pyridoxine (vitamin B6) 100 mg tablet 100 mg PO DAILY 90 Days Qty: 90 3RF docusate sodium [Colace] 100 mg capsule 100 mg PO DAILY PRN (Reason: Constipation) Discontinued esomeprazole magnesium [Nexium] 20 mg Capsule,Delayed Release(Dr/Ec) 20 mg PO DAILY Patient Comments: Patient gets OTC Discharge Orders: Discharge Order (Routine); Ordered 08/28/24 Ordered By: Alex Gonzalez Diet: Advance to usual diet Activity on Discharge: As tolerated Stand Alone Forms: Patient Portal Discharge page Print Language: Wolof Care Plan Goals: treatment of duodenal stricture Health Concerns: duodenitis, duodenal stricture [recurrent] Plan of Treatment: follow up with Dr Smith from General Surgery in 1 week. He will refer you to a surgeon at [facility] for resection of the affected duodendum resume pantoprazole 40 mg daily ondansetron as needed for nausea/vomiting Please follow up with your primary care doctor within 1 week. Return to the hospital if you experience recurrent or worsening symptoms. Assessment: See Discharge Summary.
--- NOTE | 2024-08-30 15:59 | P.CDIM_ITS ---
PROVIDER RESPONSE TEXT: To clarify, the appropriate diagnosis supported by the clinical indicators: Other (explain): duodenitis, duodenal stricture QUERY TEXT: PHYSICIAN'S DOCUMENTATION REQUEST Date of Query: 08/28/2024 08:33 AM EDT Patient Name: Lizzette Steiner Admit Date: 08/25/2024 Dear Alex Gonzalez MD, A review of the medical record indicates additional documentation may be needed. Please review below and update the documentation accordingly. Clinical Indicators: Progress note dated 08/27/24 - Duodenitis/duodenal ulcer MRI pancreatic protocol per GI IV PPI Clarify which of the following accurately represents the acuity of the Duodenal ulcer: Possible options might include: Acute Chronic Other (explain) Clinically unable to determine (explain) Thank you, Kassidy Sanz, CCS, CDIS Use of terms such as suspected, likely, concern for, or probable (associated with a specific diagnosi s that is being evaluated, monitored, or treated as if it exists) are acceptable and can be coded in the inpatient se tting, when documented at the time of discharge. Please use your independent medical judgment in providing your response. THIS QUERY IS PART OF THE PERMANENT MEDICAL RECORD
== END 2024-08-28 19:53 | disposition home or self-care (01) | DRG 392 ==
LOC: HO.ED 13:27 → HO.EDOVER 14:21 → HO.S3 15:00
PROVIDERS: Nurse Practitioner Family; Physician Assistant Surgical; Admitting Provider Student in an Organized Health Care Education/Training Program; Emergency Provider Emergency Medicine; PCP Hospitalist; Visit Provider Family Medicine
DX: K29.80 Duodenitis without bleeding (principal); K31.5 Obstruction of duodenum; E03.9 Hypothyroidism, unspecified; E11.9 Type 2 diabetes mellitus without complications; K26.9 Duodenal ulcer, unspecified as acute or chronic, without hemorrhage or perforation; F39 Unspecified mood [affective] disorder; E78.5 Hyperlipidemia, unspecified; M79.7 Fibromyalgia; Z79.4 Long term (current) use of insulin; Z79.890 Hormone replacement therapy; Z79.899 Other long term (current) drug therapy
CPT/HCPCS: 36415; 74177; 74183; 80048; 80053; 81003; 82947; 83690; 83735; 85025; 93005; 99221; 99285; A9585; J0737; J2470; J7120; Q9967

== ENCOUNTER → 2024-08-25 12:21 | Outpatient (BNV) | payer MEDICARE, OTHER, SELFPAY | PROVIDERS: Admitting Provider Student in an Organized Health Care Education/Training Program; Emergency Provider Emergency Medicine; PCP Hospitalist; Visit Provider Internal Medicine Cardiovascular Disease | DX: R94.31 Abnormal electrocardiogram [ECG] [EKG] (principal); R53.1 Weakness | CPT/HCPCS: 93010 ==

== ENCOUNTER → 2024-08-25 13:47 | Outpatient (BNV) | payer MEDICARE, OTHER, SELFPAY | PROVIDERS: Admitting Provider Student in an Organized Health Care Education/Training Program; Emergency Provider Emergency Medicine; PCP Hospitalist; Visit Provider Radiology Diagnostic Radiology | DX: K29.80 Duodenitis without bleeding (principal) | CPT/HCPCS: 74177 ==

== ENCOUNTER 2024-08-25 17:38 | Outpatient (BNV) | payer MEDICARE, OTHER, SELFPAY | END 2024-08-27 15:14 | PROVIDERS: Admitting Provider Student in an Organized Health Care Education/Training Program; Emergency Provider Emergency Medicine; PCP Hospitalist; Visit Provider Radiology Diagnostic Radiology | DX: K29.80 Duodenitis without bleeding (principal) | CPT/HCPCS: 74183 ==

== ENCOUNTER → 2024-08-25 17:38 | Outpatient (BNV) | payer MEDICARE, OTHER, SELFPAY | PROVIDERS: Admitting Provider Student in an Organized Health Care Education/Training Program; Emergency Provider Emergency Medicine; PCP Hospitalist; Visit Provider Student in an Organized Health Care Education/Training Program | DX: R11.0 Nausea (principal); K29.80 Duodenitis without bleeding | CPT/HCPCS: 99223; 99232; 99239 ==

== ENCOUNTER → 2024-08-25 17:38 | Outpatient (BNV) | payer MEDICARE, OTHER, SELFPAY | PROVIDERS: Admitting Provider Student in an Organized Health Care Education/Training Program; Emergency Provider Emergency Medicine; PCP Hospitalist; Visit Provider Surgery | DX: K31.5 Obstruction of duodenum (principal) | CPT/HCPCS: 99222; 99232; 99499 ==

== ENCOUNTER → 2024-08-25 17:38 | Outpatient (BNV) | payer MEDICARE, OTHER, SELFPAY | PROVIDERS: Admitting Provider Student in an Organized Health Care Education/Training Program; Emergency Provider Emergency Medicine; PCP Hospitalist; Visit Provider Internal Medicine | DX: K29.80 Duodenitis without bleeding (principal); K31.5 Obstruction of duodenum | CPT/HCPCS: 99232 ==

== ENCOUNTER 2024-08-30 11:02 | Outpatient (REF) | payer SELFPAY ==
--- OUTSIDE RECORDS SUMMARY | 2024-08-30 11:55 | XMS_ITS | Patient Health Record ---
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 Name Role Phone Tyrone Ortegad Primary Care Provider Cedric Rueda Unavailable [phone] Allergies Allergen (clinical drug ingredient) Drug/Non Drug [...] Status Risk Notes Problem Contusion of foot (04707550) Contusion of foot (924.20) Active confirmed Problem Edema (72173466) Edema (782.3) Active confirmed Problem Neurologic disorder associated with type II diabetes mellitus (372960127) Diabetic - NIDDM/Neuropathy (250.60) Active confirmed Problem Polyneuropathy due to type 2 diabetes mellitus (614876763) Type 2 diabetes mellitus with diabetic polyneuropathy (E11.42) Active confirmed Plan Of Treatment Pending Test Test Name Order Date X ray : Foot, left 3V 02/23/2011 Insurance Providers Payer Name Payer Address Payer Phone Subscriber Number Group Number Insured Name Patient Relationship to Insured Coverage Start Date Coverage End Date Medicare [employer] [address] [place] [address] [id number] Lizzette Steiner Self - patient is the insured [employer]) [address] [place] [id number] Rigo Steiner Spouse - patient is the spouse of the insured Medical (General) History Medical History History ICD Code breast cancer chicken pox thyroid disorder measles diabetic depression Anxiety Arthritis asthma Back,Hip,and Knee pain Cataracts Depression Fibromyalgia Numbness Psychiatric disorder Hearing loss Surgical History Surgery Date(Month/Year) right mastectomy Left shoulder 3 Spurs
--- NOTE | 2024-08-30 13:05 | MHC.AU.HA3 ---
Hearing Instrument Follow-Up- Binaural Date of Visit: 08/30/24 Right Ear: Make, Model, Color, Serial Number: Federica Mercer [id number] SN: [id number] Color: Silver Sharpe [employer] Repair Warranty: 11/19/2023 [employer] Painter Loss and Damage Warranty: 11/19/2023 [facility] Service Plan: 11/19/2023 Battery Size: 13 Inserting Press Operator/Slim Tube: #2 UP Earmold/Dome/CShell/SlimTip:Skeleton c-shell SN: [id number] Zoey: 07/23/2023 Type of Wax Guard: CeruStop Dispensed By: [facility] Date of Fittin09/04/2020 Left Ear: Make, Model, Color, Serial Number: Federica Mercer [id number] SN: [id number] Color: Silver Sharpe [employer] Painter Repair Warranty: 11/19/2023 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 Requests cleaning of left aid/cshell and repair to right cshell. Brought old HAs/EMs, states HAs are not working but wants matching pair of loaners using old earmolds. Did not want to give me old HAs at appt, felt more comfortable holding onto them herself. Let her know she could wear her usual left HAYDEN in the meantime but wants matching pair. Programmed Bolero B90s and coupled with her earmolds. Pt then asked me to throw away her old HAs as they do not work. Checked aids, they seem to be in working condition. Pt requested to have EMs put back on her own HAs to avoid taking loaners. Completed. Pt says she would like to get new cshells eventually as hers are hard to insert. Explained we are ordering new right cshell rather than repairing so if she has fit issues we should do new impression, pt agreed and decided to order two new cshells with new impressions. Taken without incident. Pt states she is going to [place] for stomach and then back surgery but it is not scheduled yet, concerned cshells will arrive while she is gone. Let her know someone can bring in aids and we can couple if necessary, though would be ideal to check fit in person. Then noted she and are preparing to sell house and move to [facility]. living 1.5 hour away, not sure of timeline but is concerned about getting aids here for coupling. Offered to hold her HAs so we can couple when new shells arrive and someone can milk pickup truck driver for her. Pt agreed, states she is more comfortable with her HAs in our possession anyway as she might be packing house. Pt left with her own back up HAs and EMs in ears, left her right and left RICs as well as left cshell with us (in repair drawer, threw away broken right cshell per pt), and we will call her when ready for pickup with new cshells. Paid up front for cshells. Also purchased 5 pk wax guard. Recommendations: Recommendations: Patient will be contacted when materials have arrived. Diagnosis Code(s): Primary Diagnosis: H90.3 Bilateral Sensorineural Hearing Loss Signature: Provider: Luis E Dumas, CCC-A
== END 2024-08-30 11:03 | disposition home or self-care (01) ==
LOC: HO.HAP 11:02
PROVIDERS: Visit Provider Hospitalist
DX: Z46.1 Encounter for fitting and adjustment of hearing aid (principal); H90.3 Sensorineural hearing loss, bilateral
CPT/HCPCS: V5264; V5267

== ENCOUNTER 2024-09-02 09:03 | Day surgery (SDC) | payer SELFPAY ==
[2024-09-02 09:06] VITALS: BMI 26.9
[2024-09-02 09:29] VITALS: BP 136/87; PULSE 67; RESP 20; TEMP 36.9; O2SAT 97
[2024-09-02] MEDS: Lactated Ringers 1,000 ML 50 ML IVCONT (10:05)
--- NOTE | 2024-09-02 10:10 | MHC.SHP ---
Pre-Procedural Eval Section A - 24 Hr Update-Section A only Date of Service: 09/02/24 The patient is an INPATIENT: No Changes since office visit: Yes Patient answered all questions; No Cold of Flu in the past 2 weeks, No New Medical Problems and No Changes in Medication The patient has been examined within 24 hours of the surgical procedure. The History & Physical has been completed within 30 days and I have reviewed it.: Yes Section B - Complete if H&P > 30 days Chief Complaint: Duodenal stricture Allergies: Allergies Allergy/AdvReac Type Severity Reaction Status Date / Time insulin detemir Allergy Severe Itching Verified 08/25/24 11:25 [From Levemir U-100 Insulin] adhesive tape Allergy Intermediate Rash from Verified 08/25/24 11:25 medical tape, tegaderm, etc. bupropion [From Wellbutrin] Allergy Intermediate Rash Verified 08/25/24 11:25 codeine [Codeine] Allergy Intermediate Nausea and Verified 08/25/24 11:25 Vomiting escitalopram Allergy Intermediate lethargy Verified 08/25/24 11:25 NSAIDS (Non-Steroidal Allergy Intermediate Swelling Verified 08/25/24 11:25 Anti-Inflamma pregabalin Allergy Intermediate Confusion Verified 08/25/24 11:25 rosuvastatin [Crestor] AdvReac Intermediate joint pain Verified 08/25/24 11:25 Review of Systems Sugical H&P ROS: Negative: Constitution, Cardiovascular and Respiratory and Yes, Specify: Gastrointestinal (nausea) Plan Diagnosis/Plan: Change (proceed with EGD with dilation of duodenal stricture) I have reviewed the history and physical and performed a pertinent physical examination on my patient. No changes have occurred unless specified. Time Spent With Patient Time: Total time managing care of this patient today ____ minutes.
[2024-09-02 11:12] LABS: Glucose, Whole Blood 78 mg/dL (60-115)
--- NOTE | 2024-09-02 11:47 | P.OP_ITS ---
Operative Note Operative Note Date of Service: 09/02/24 Narrative: FLEXIBLE TRANSORAL UPPER GASTROINTESTINAL ENDOSCOPY WITH BIOPSIES AND BALLOON DILATION OF DUODENAL STRICTURE Pre-op diagnosis: Duodenal stricture, persistent nausea. Post-op diagnosis: Duodenal stricture Endoscopist:? Jonah Crespo MD Anesthesia:?MAC UPPER ENDOSCOPY Consent: Indications for the procedure and potential complications of bleeding, perforation, reaction to medications and missed diagnosis were discussed with the patient and informed consent was obtained. Instrument: Olympus GIF H 190 mid size upper endoscope Monitoring: Vital signs and clinical assessment, continuous EKG monitoring, Pulse oximetry, Carbon Dioxide monitoring and blood pressure monitoring were done throughout the procedure. Procedure: The patient was placed in the left lateral decubitis position and pre-procedure medications were administered and a bite block was placed. The endoscope was inserted into the mouth and advanced under direct vision to the third part of duodenum. A careful inspection was made as the upper endoscope was withdrawn including a retroflexed examination of the proximal stomach; Findings and interventions are described below. Findings: Larynx: Normal Esophagus: GE junction at 33 cms, small hiatal hernia 33 to 35 cms with a non- obstructing Schatzki's ring. Mildly tortuous esophagus without stricture. Stomach: some retained food in the fundus. Moderate diffuse gastric erythema with nodular appearing gastric mucosa in the gastric body and fundus - biopsies obtained during previous EGD were negative for H pylori. Grade 2 flap valve on retroflexed examination of the cardia. Duodenum: A tight stricture at the apex of the bulb extending into the 2nd part of the duodenum with retained food proximal to the stricture. I was able to pass a mid size upper endoscope through the stricture with mild resistance Stricture was dilated with a 13.5 and 14 mm (42 F) CRE balloon x 60 seconds at each level Endoscope passed through the stricture with circumferential polypoidal/villous appearing mucosa - multiple biopsies were obtained. Normal duodenal mucosa distal to the stricture Intervention: Biopsies balloon dilation of duodenal stricture and as noted above Impression and Post Procedure Diagnosis: Endoscopy Findings: ESOPHAGUS: Small hiatal hernia 33 to 35 cms with a non-obstructing Schatzki's ring. STOMACH: Moderate diffuse gastritis DUODENUM: Stricture at the apex of the bulb extending into the 2nd part of the duodenum. dilated to 14 mm (42 F) with a CRE balloon. Plan: Pt has a FU appointment on 09/30/[address] Russo. She is scheduled to see a GI surgeon in [place] on 09/04/24. Above findings were reviewed with the patient.
--- NOTE | 2024-09-02 11:48 | HO.ANESPROP2 ---
Documented by User: Ana Shaikh DO 09/02/24 11:50 HPI - Anesthesia Eval Consult details Narrative: 74 yo F presenting for EGD with dilation PMFSH Past Medical History Medical History (Updated 08/26/24 @ 16:14 by Annmarie Fisher MD) Duodenal stricture Duodenitis Bilateral cataracts Schizoaffective disorder Confusion Skin rash Vitamin D deficiency HTN (hypertension) HLD (hyperlipidemia) Cellulitis of leg, left Urinary urgency Arthralgia of shoulder region, left Cervical spondylitis with radiculitis Myofascial pain on left side Depression OCD (obsessive compulsive disorder) DJD (degenerative joint disease) SI (sacroiliac) joint dysfunction Fibromyalgia GERD (gastroesophageal reflux disease) Neuropathy Diabetes Family History Family History Father No problems noted. Mother No problems noted. Family history of problems with anesthesia: No Surgical History Surgical History (Updated 07/30/24 @ 13:19 by Jennifer Rogers RN) History of esophagogastroduodenoscopy (EGD) History of laparoscopic cholecystectomy (~05/24/24) H/O mastectomy Hx of appendectomy H/O exploratory laparotomy History of surgery History of Problems with Anesthesia: No Social History Social History Household Members: Spouse Household Members Other:: 1 Housing: House Are you a primary healthcare interpreter to a significant other at home: No Do you presently have visiting nurse or other home services: No Alcohol intake: former Comment: uses cane and walker at home Patient Tobacco Use Status: Never used Tobacco Tobacco use type: Cigarette e-Cigarette/Vaping Use: Never Used Second Hand Smoke Exposure: No Have you been hit, kicked, punched, or otherwise hurt by someone within the past year? If so, by whom?: No Are you DNR?: No Advance Directives: No Advance Directives Information Provided: Yes Advance Directives Date on File: 06/01/24 service: No Current occupational status: retired Cognitive needs: Yes (cane) Hearing needs: Yes (hearing aide) Vision needs: Yes (glasses) Meds Allergies Allergy/AdvReac Type Severity Reaction Status Date / Time insulin detemir Allergy Severe Itching Verified 08/25/24 11:25 [From Levemir U-100 Insulin] adhesive tape Allergy Intermediate Rash from Verified 08/25/24 11:25 medical tape, tegaderm, etc. bupropion [From Wellbutrin] Allergy Intermediate Rash Verified 08/25/24 11:25 codeine [Codeine] Allergy Intermediate Nausea and Verified 08/25/24 11:25 Vomiting escitalopram Allergy Intermediate lethargy Verified 08/25/24 11:25 NSAIDS (Non-Steroidal Allergy Intermediate Swelling Verified 08/25/24 11:25 Anti-Inflamma pregabalin Allergy Intermediate Confusion Verified 08/25/24 11:25 rosuvastatin [Crestor] AdvReac Intermediate joint pain Verified 08/25/24 11:25 Home Medications ?Medication ?Instructions ?Recorded ?Confirmed ?Last Taken ?Type biotin 1 mg capsule 1 mg PO DAILY 05/17/21 09/02/24 2 Weeks Ago History ~06/08/24 blood sugar diagnostic (OneTouch #10 ea 05/27/21 09/02/24 Unknown History Ultra Test strips) levocetirizine 5 mg tablet (Xyzal) 5 mg PO BID Allergy Symptoms 09/09/21 09/02/24 2 Weeks Ago History ~06/08/24 hydroxyzine pamoate 25 mg capsule 25 mg PO BID PRN Itching 05/23/24 09/02/24 Unknown History insulin glargine 100 unit/mL (3 46 unit subcut DAILY 06/01/24 09/02/24 08/01/24 06:50 History mL) subcutaneous pen (Basaglar 23 units KwikPen U-100 Insulin) ipratropium bromide 42 mcg (0.06 2 spray intranasal DAILY Allergy 06/01/24 09/02/24 Unknown History %) nasal spray Symptoms furosemide 20 mg tablet 20 mg PO DAILY PRN leg swelling 06/22/24 09/02/24 Unknown History lorazepam 0.5 mg tablet 0.5 mg PO TID PRN anxiety 06/22/24 09/02/24 Unknown History vitamin B complex 1 cap PO DAILY 06/22/24 09/02/24 2 Weeks Ago History ~06/08/24 docusate sodium 100 mg capsule 100 mg PO DAILY PRN Constipation 08/09/24 09/02/24 Unknown History (Colace) magnesium oxide 400 mg (241.3 mg 400 mg PO BID 08/25/24 09/02/24 Unknown History magnesium) tablet oxycodone 10 mg tablet 10 mg PO TID PRN Pain 08/25/24 09/02/24 09/02/24 History prochlorperazine maleate 10 mg 10 mg PO Q8H PRN Nausea And 08/25/24 09/02/24 09/02/24 History tablet Vomiting Exam Exam Date and Time: 09/02/24 1148 Airway Mallampati Class: I TM Dist: <=3cm Neck ROM: Full Loose/Missing/Broken Teeth: No (patient denies any loose or broken teeth) Heart: S1S2 Lungs: CTAB Assessment and Plan Assessment Anesthesia Assessment: Anesthesia Plan Discussed and Chart Reviewed Final Anesthetic Review Family History of Problems with Anesthesia: No History of Problems with Anesthesia: No NPO: Yes ASA Class: III Final Preanesthetic Review: No Changes in Pt Med Stat, Meds/Allgs Chart Reviewed, Consent Obtained/Reviewed and Anes Risks/Benef Reviewed Patient Risk: Intermediate Procedure Risk: Low Anesthetic Plan Anesthetic Plan: MAC: and Agree w/ Assess. and Plan Disposition: Standard PACU Documented by User: Tran Garcia MD COUNTS INCLUDE 234 BEDS AT THE [facility] Active Problems Active Problems: All Active Problems Side effect of medication (Acute) Duodenal stricture (Acute) Duodenitis (Acute) Gastritis (Acute) S/P laparoscopic cholecystectomy (Acute) Cervical spinal stenosis (Acute) Osteoarthritis of shoulders, bilateral (Acute) Knee osteoarthritis (Acute) Overdose (Acute) Post-menopausal (Acute) Diabetic neuropathy (Acute) Hepatic steatosis (Acute) Renal cyst (Acute) Renal stone (Acute) Hypothyroidism (Acute) Obesity (BMI 30-39.9) (Acute) Elevated LFTs (Acute) Internal hemorrhoid (Acute) External hemorrhoid (Acute) Bilateral edema of lower extremity (Acute) Fibromyalgia (Acute) Compulsive scratching behavior (Acute) Physical exam (Acute) Uncontrolled diabetes mellitus (Acute) Change in hearing (Acute) Type II diabetes mellitus (Acute) Urinary incontinence (Acute) Schizoaffective disorder (Acute) Confusion (Acute) Vitamin D deficiency (Acute) HTN (hypertension) (Acute) HLD (hyperlipidemia) (Acute) Urinary urgency (Acute) OCD (obsessive compulsive disorder) (Acute) Depression (Acute) Arthralgia of shoulder region, left (Acute) Cervical spondylitis with radiculitis (Acute) Myofascial pain on left side (Acute) Past Medical History Medical History (Updated 08/26/24 @ 16:14 by Annmarie Fisher MD) Duodenal stricture Duodenitis Bilateral cataracts Schizoaffective disorder Confusion Skin rash Vitamin D deficiency HTN (hypertension) HLD (hyperlipidemia) Cellulitis of leg, left Urinary urgency Arthralgia of shoulder region, left Cervical spondylitis with radiculitis Myofascial pain on left side Depression OCD (obsessive compulsive disorder) DJD (degenerative joint disease) SI (sacroiliac) joint dysfunction Fibromyalgia GERD (gastroesophageal reflux disease) Neuropathy Diabetes Family History Family History Father No problems noted. Mother No problems noted. Family history of problems with anesthesia: No Surgical History Surgical History (Updated 07/30/24 @ 13:19 by Jennifer Rogers RN) History of esophagogastroduodenoscopy (EGD) History of laparoscopic cholecystectomy (~05/24/24) H/O mastectomy Hx of appendectomy H/O exploratory laparotomy History of surgery History of Problems with Anesthesia: No Social History Social History Household Members: Spouse Household Members Other:: 1 Housing: House Are you a primary healthcare interpreter to a significant other at home: No Do you presently have visiting nurse or other home services: No Alcohol intake: former Comment: uses cane and walker at home Patient Tobacco Use Status: Never used Tobacco Tobacco use type: Cigarette e-Cigarette/Vaping Use: Never Used Second Hand Smoke Exposure: No Have you been hit, kicked, punched, or otherwise hurt by someone within the past year? If so, by whom?: No Are you DNR?: No Advance Directives: No Advance Directives Information Provided: Yes Advance Directives Date on File: 06/01/24 service: No Current occupational status: retired Cognitive needs: Yes (cane) Hearing needs: Yes (hearing aide) Vision needs: Yes (glasses) Meds Allergies Allergy/AdvReac Type Severity Reaction Status Date / Time insulin detemir Allergy Severe Itching Verified 08/25/24 11:25 [From Levemir U-100 Insulin] adhesive tape Allergy Intermediate Rash from Verified 08/25/24 11:25 medical tape, tegaderm, etc. bupropion [From Wellbutrin] Allergy Intermediate Rash Verified 08/25/24 11:25 codeine [Codeine] Allergy Intermediate Nausea and Verified 08/25/24 11:25 Vomiting escitalopram Allergy Intermediate lethargy Verified 08/25/24 11:25 NSAIDS (Non-Steroidal Allergy Intermediate Swelling Verified 08/25/24 11:25 Anti-Inflamma pregabalin Allergy Intermediate Confusion Verified 08/25/24 11:25 rosuvastatin [Crestor] AdvReac Intermediate joint pain Verified 08/25/24 11:25 Active Medications: Current Medications Lactated Ringer's (Lr) 1,000 mls @ 50 mls/hr IVCONT .Q20H GLENN Last Admin: 09/02/24 10:05 Dose: 50 mls/hr Home Medications ?Medication ?Instructions ?Recorded ?Confirmed ?Last Taken ?Type biotin 1 mg capsule 1 mg PO DAILY 05/17/21 09/02/24 2 Weeks Ago History ~06/08/24 blood sugar diagnostic (OneTouch #10 ea 05/27/21 09/02/24 Unknown History Ultra Test strips) levocetirizine 5 mg tablet (Xyzal) 5 mg PO BID Allergy Symptoms 09/09/21 09/02/24 2 Weeks Ago History ~06/08/24 hydroxyzine pamoate 25 mg capsule 25 mg PO BID PRN Itching 05/23/24 09/02/24 Unknown History insulin glargine 100 unit/mL (3 46 unit subcut DAILY 06/01/24 09/02/24 08/01/24 06:50 History mL) subcutaneous pen (Basaglar 23 units KwikPen U-100 Insulin) ipratropium bromide 42 mcg (0.06 2 spray intranasal DAILY Allergy 06/01/24 09/02/24 Unknown History %) nasal spray Symptoms furosemide 20 mg tablet 20 mg PO DAILY PRN leg swelling 06/22/24 09/02/24 Unknown History lorazepam 0.5 mg tablet 0.5 mg PO TID PRN anxiety 06/22/24 09/02/24 Unknown History vitamin B complex 1 cap PO DAILY 06/22/24 09/02/24 2 Weeks Ago History ~06/08/24 docusate sodium 100 mg capsule 100 mg PO DAILY PRN Constipation 08/09/24 09/02/24 Unknown History (Colace) magnesium oxide 400 mg (241.3 mg 400 mg PO BID 08/25/24 09/02/24 Unknown History magnesium) tablet oxycodone 10 mg tablet 10 mg PO TID PRN Pain 08/25/24 09/02/24 09/02/24 History prochlorperazine maleate 10 mg 10 mg PO Q8H PRN Nausea And 08/25/24 09/02/24 09/02/24 History tablet Vomiting Exam Height,Weight and Vital Signs: Height 5 ft 1 in Weight 64.7 kg Last Vital Signs Temp 98.5 F 09/02/24 09:29 Pulse 67 09/02/24 09:29 Resp 20 09/02/24 09:29 BP 136/87 09/02/24 09:29 Pulse Ox 97 09/02/24 09:29 O2 Del Method Room Air 09/02/24 09:29 Assessment and Plan Final Anesthetic Review Family History of Problems with Anesthesia: No History of Problems with Anesthesia: No
[2024-09-02 12:27] VITALS: BP 123/61; PULSE 59; RESP 18; TEMP 36.9; O2SAT 100
[2024-09-02 12:42] VITALS: BP 149/73; PULSE 54; RESP 18; O2SAT 100
[2024-09-02 12:57] VITALS: BP 166/75; PULSE 57; RESP 18; O2SAT 100
[2024-09-02 13:12] VITALS: BP 155/73; PULSE 59; RESP 18; TEMP 36.7; O2SAT 100
== END 2024-09-02 14:23 | disposition home or self-care (01) ==
PROVIDERS: PCP Hospitalist; Visit Provider Internal Medicine Gastroenterology
PROC: (CPT 43245; principal; 2024-09-02 11:10)
DX: K31.5 Obstruction of duodenum (principal); K26.7 Chronic duodenal ulcer without hemorrhage or perforation; R11.0 Nausea; K22.2 Esophageal obstruction; K29.60 Other gastritis without bleeding; K44.9 Diaphragmatic hernia without obstruction or gangrene; K21.9 Gastro-esophageal reflux disease without esophagitis; E03.9 Hypothyroidism, unspecified; E11.9 Type 2 diabetes mellitus without complications; I10 Essential (primary) hypertension; M79.7 Fibromyalgia; F25.9 Schizoaffective disorder, unspecified; F42.9 Obsessive-compulsive disorder, unspecified; Z79.4 Long term (current) use of insulin; Z79.899 Other long term (current) drug therapy; Z88.5 Allergy status to narcotic agent; Z88.6 Allergy status to analgesic agent; Z88.8 Allergy status to other drugs, medicaments and biological substances; L23.1 Allergic contact dermatitis due to adhesives; Z98.890 Other specified postprocedural states
CPT/HCPCS: 43245; 43239; 82947; 88305; 88313; C1726; J2003; J2704

== ENCOUNTER → 2024-09-02 09:03 | Outpatient (BNV) | payer MEDICARE, OTHER, SELFPAY | PROVIDERS: PCP Hospitalist; Visit Provider Internal Medicine Gastroenterology | DX: K31.5 Obstruction of duodenum (principal); K22.2 Esophageal obstruction; K29.70 Gastritis, unspecified, without bleeding | CPT/HCPCS: 43245 ==

== ENCOUNTER 2024-09-27 09:56 | Outpatient (REF) | payer SELFPAY ==
--- OUTSIDE RECORDS SUMMARY | 2024-09-27 10:28 | XMS_ITS | Patient Health Record ---
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 Mate Name Role Phone Tyrone Ortegad Primary Care Provider Cedric Rueda Unavailable [phone] Allergies Allergen (clinical drug ingredient) Drug/Non Drug [...] 1 capsule as needed Orally Once a day; Duration: 30 day(s) 04/21/2023 Active Vitamin B6 100 MG 1 tablet Orally Once a day; Duration: 30 day(s) 04/21/2023 Active Cymbalta 30 MG 1 capsule Orally Onc e a day; Duration: 30 day(s) 04/21/2023 Active Lasix 20 MG 1 tablet Orally Once a day; Duration: 30 day(s) 04/21/2023 Active Latuda 20 MG 1 tablet in the even ing with food Orally Once a day; Duration: 30 day(s) 04/21/2023 Active Magnesium 400 MG as directed Orally 04/21/2023 Active Vitamin D3 50 MCG (1999 UT) 1 tablet Orally Once a day; Duration: 30 day(s) 04/21/2023 Active Biotin 04/21/2023 Active Basaglar KwikPen 100 UNIT/ML 45 UNIT (0.45 ML) SUBCUTANEOUSLY EVERY MORNING Subcutaneous; Duration: 30 Days Active Compression Stockings 20-30mm Hg as directed 03/24/2011 Unknown Vitamin B + C Complex Active Atabex Unknown Haldol Decanoate 50 MG/ML 1 mL Intramusc ular; Duration: 30 day(s) Unknown Omeprazole 40 MG 1 capsule 30 minutes before morning meal Orally Once a day Active Levothyroxine Sodium 150 MCG 1 tablet in the morning on an empty stomach Orally Active Lexapro Unknown Aspirin 81mg Active Crestor Unknown Gabapentin 400 MG 1 capsule Orally Onc e a day; Duration: 30 day(s) Active Advil Unknown Simvastatin 40 MG 1 tablet in the even ing Orally Once a day; Duration: 30 day(s) Active Advair Diskus Unknow n Ativan 0.5 MG 1 tablet at bedtime as needed Orally Once a day 04/21/2023 Active Ativan 1 MG 1 tablet at bedtime as needed Orally Once a day 04/21/2023 Active Xyzal 04/21/2023 Active Fish Oil 1000 MG 1 capsule Orally Onc e a day; Duration: 30 day(s) 04/21/2023 Active metFORMIN HCl Unknow [...] Status Risk Notes Problem Contusion of foot (84858466) Contusion of foot (924.20) Active confirmed Problem Edema (40792571) Edema (782.3) Active confirmed Problem Neurologic disorder associated with type II diabetes mellitus (290813544) Diabetic - NIDDM/Neuropathy (250.60) Active confirmed Problem Polyneuropathy due to type 2 diabetes mellitus (727933061) Type 2 diabetes mellitus with diabetic polyneuropathy (E11.42) Active confirmed Plan Of Treatment Pending Test Test Name Order Date X ray : Foot, left 3V 02/23/2011 Insurance Providers Payer Name Payer Address Payer Phone Subscriber Number Group Number Insured Name Patient Relationship to Insured Coverage Start Date Coverage End Date Medicare National [employer]t S[employer] [address] [place] [address] [id number] Lizzette Steiner Self - patient is the insured [employer] ([place]) [address] [place] [address] [phone] [id number] Rigo Steiner Spouse - patient is the spouse of the insured Medical (General) History Medical History History ICD Code breast cancer chicken pox thyroid disorder measles diabetic depression Anxiety Arthritis asthma Back,Hip,and Knee pain Cataracts Depression Fibromyalgia Numbness Psychiatric disorder Hearing loss Surgical History Surgery Date(Month/Year) right mastectomy Left shoulder 3 Spurs
== END 2024-09-27 09:57 | disposition home or self-care (01) ==
LOC: HO.SH 09:56
PROVIDERS: Visit Provider Hospitalist
DX: Z13.89 Encounter for screening for other disorder (principal)